=== PATIENT | female | born 1945 | race Caucasian/White ===

== ENCOUNTER 2018-10-20 11:17 | Emergency (ER) | payer MEDICARE, SELFPAY ==
[2018-10-20 11:19] VITALS: BP 181/106; PULSE 90; RESP 16; TEMP 36.1; O2SAT 96; BMI 28.7
--- NOTE | 2018-10-20 12:09 | CT_ITS ---
STUDY: CT BRAIN WITHOUT CONTRAST REASON FOR EXAM: Female, 73 years old. Dizziness following head injury. History of breast cancer. RADIATION DOSAGE (If Supplied By Facility): CTDIvol = ( 44.99 ) mGy, DLP = ( 745.49 ) mGycm TECHNIQUE: Transaxial CT imaging of the brain was performed without administration of intravenous contrast material. Individualized dose optimization techniques were used for this CT. COMPARISON: None. FINDINGS: Normal soft tissue structures. Normal calvarium. There is mild cerebral atrophy with widening of the extra-axial spaces and ventricular dilatation. Focal area of encephalomalacia in the left frontal lobe extending into the left basal ganglion suggestive of a prior infarction. Decreased attenuation in the left frontal lobe as well. Normal basal ganglia and thalami. Normal brainstem. Normal cerebellum. There is no intracranial hemorrhage. There are no findings of an acute ischemic infarction. Normal visualized paranasal sinuses. CT/Brain/Head without Contrast IMPRESSION: Chronic involutional changes of the brain. Focal encephalomalacia in the right frontal lobe with extension to the right basal ganglion. Focal area of decreased attenuation is seen along the medial aspect of the left frontal lobe as well. Electronically Signed: Alexis Lee MD at 12:37 EST , Service support ,
--- NOTE | 2018-10-20 12:14 | ED.DCSUM_ITS ---
- ER Visit Summary Date of Service: 10/20/18 Chief Complaint: Slipped on ice fell and hit head on asphalt. History of Present Illness: The patient is a 73 F treated prior basal cell skin CA and breast cancer. Multiple prior surgeries. On no blood thinners. Vision with with with her walking in a parking lot. She slipped on the ice fell backwards and struck her head. This occurred within the last several hours. No LOC but they said she hit her head hard. She is had a headache since that time. No neck pain. No other injuries. No vomiting. No nausea. Physical Examination: Female no acute distress. Vital signs are stable afebrile. HEENT exam pupils round reactive light. No facial trauma. Normal speech. Posterior right scalp with a small hematoma. No laceration or bleeding. C-spine nontender. Trachea midline. Lungs clear to auscultation bilaterally. Heart regular rhythm no murmur. Chest wall nontender. Abdomen soft nontender. Normal bowel sounds no peritoneal signs. Pelvic girdle intact. Nontender. Normal flexion extension of both hips, knees and ankles. Dorsi plantar flexion intact. Nontender no deformity lower extremities. Upper extremities are nontender with normal range of motion. Normal range of motion to shoulders bilateral elbows, wrists and hands. Normal ground instructor basic strength. Spine is nontender. She has some right trapezius tenderness consistent with a muscle strain. Neurologically she is awake alert with no focal motor deficits. Test Results: CAT scan of the brain without contrast shows no acute abnormality. Chronic changes. Encephalomalacia. No intracranial bleed. Reviewed by myself and read by the radiologist. Emergency Department Course and Treatment: Patient did not want anything for her headache at this time. She took aspirin at home. Exam at 1330 patient is doing well. Comfortable discharged home. I did warn her and her on signs and symptoms of delayed intracranial bleed. Treatment Plan: Injury instructions. Return if severe headache, intractable vomiting or mental status change. Disposition: Discharge Impression: Acute fall on ice Closed head injury /concussion This note was generated with [employer] dictation software. It may contain incorrect words, spelling, and punctuation that were not noted in review of the chart prior to signing ED Disposition - Plan for ED Patient: Chief Complaint: Fall Referrals: Shelbi Contreras PA [Primary Care Provider] -
--- NOTE | 2018-10-20 13:32 | ED.DEP ---
ED Disposition - Plan for ED Patient: Disposition: Home or Assisted Living Chief Complaint: Fall Instructions: ED Head Injury Closed Referrals: Shelbi Contreras PA [Primary Care Provider] - As Needed Additional Instructions: Ice to back of head. Tylenol for pain. Return if severe headache, vomiting or trouble walking or not acting herself.
[2018-10-20 13:40] VITALS: BP 145/115; PULSE 101; RESP 16; O2SAT 96
== END 2018-10-20 13:42 | disposition home or self-care (01) ==
PROVIDERS: Emergency Provider Emergency Medicine; Family Provider Physician Assistant; PCP Physician Assistant
DX: S06.0X0A Concussion without loss of consciousness, initial encounter (principal); V00.211A Fall from ice-skates, initial encounter; Y93.01 Activity, walking, marching and hiking; Y92.481 Parking lot as the place of occurrence of the external cause; Y99.9 Unspecified external cause status; Z85.828 Personal history of other malignant neoplasm of skin; Z85.3 Personal history of malignant neoplasm of breast
CPT/HCPCS: 70450; 99282

== ENCOUNTER 2019-11-27 18:35 | Emergency (ER) | payer MEDICARE, SELFPAY ==
[2019-11-27 18:37] VITALS: BP 150/87; PULSE 114; RESP 16; TEMP 36.7; O2SAT 93; BMI 28.0
--- NOTE | 2019-11-27 19:00 | EKG12_ITS ---
Test Reason : DIZZY Blood Pressure : / mmHG Vent. Rate : 095 BPM Atrial Rate : 095 BPM P-R Int : 158 ms QRS Dur : 076 ms QT Int : 334 ms P-R-T Axes : 035 -11 036 degrees QTc Int : 419 ms Normal sinus rhythm Possible Left atrial enlargement Borderline ECG Confirmed by LILIA DYE, EUGENE ([id number]), brands editor SONIA DAVILA ([id number]) on 11/29/2019 3:16:55 PM Referred By: WILBER Confirmed By:EUGENE RODRIGUES MD
--- NOTE | 2019-11-27 19:09 | ED.DCSUM_ITS ---
History of Present Illness Chief Complaint: Dizziness Informant: Patient, Family Onset: Yesterday Narrative: Increased urine urgency yesterday, today noting subjective fevers, myalgias and chills. 6 weeks postop bladder lift with rectocele removal from her hand hide stretcher in [place]. Had a follow-up on the of last month, had dysuria, called in prescription following day due to positive UTI of Macrobid she finished this 2 days ago. No back pain. Nausea without vomiting or diarrhea. No chest pains or shortness of breath. No cough. She does not get the flu vaccination. Patient only takes occasional reflux medications. States occasional lightheaded symptoms, no syncopal episodes. Prior similar symptoms: No Past Medical History - Allergies and Home Meds Allergies/Adverse Reactions: Allergies No Known Allergies Allergy (Verified 10/20/18 11:19) Primary Care Physician: Shelbi Contreras PA [Primary Care Provider] - Past Medical History: - - GERD, ZAMAN Surgical History: cholecystectomy, - - lumpectemy, breast cancer, port placed and then removed.hysterectemy Smoking Status: Never smoker - Family History Maternal Family History: Reports: - Paternal Family History: Reports: - - father had mi at age 70 Review of Systems All systems negative except as indicated General: Reports: Chills, Fever. Denies: Sweats Eyes: Denies: Visual changes - bilaterally, Diplopia ENT: Denies: Rhinorrhea, Sore throat Cardiovascular: Denies: Chest pain, Palpitations Respiratory: Denies: Dyspnea, Cough, Dyspnea on exertion Gastrointestinal: Reports: Nausea. Denies: Abdominal pain, Vomiting, Diarrhea, Melena, Hematochezia Genitourinary: Reports: Frequency. Denies: Dysuria, Hematuria Musculoskeletal: Denies: Back pain, Extremity Pain Skin: Denies: Rash, Wounds Neurological: Denies: Headache, Weakness, Numbness Physical Exam Vital Signs/Narrative: Vital Signs Temp Pulse Resp BP Pulse Ox 11/27/19 18:37 98.1 F 114 H 16 150/87 H 93 Inital Vital Signs reviewed: Yes General: Well nourished, Well developed, No Acute Distress Head: Normocephalic, Atraumatic Eyes: Perrl, EOMI ENT: Moist mucous membranes, No rhinorrhea Neck: Supple, Nontender Cardiovascular: Regular rate, Regular rhythm, No murmurs, Tachycardia Respiratory: No distress, CTA bilaterally, Chest nontender Abdomen: Soft, Nontender, Nondistended, Normal bowel sounds Back: Nontender, Normal Inspection Extremities: Nontender, No edema Skin: Normal color, No rash Neurological: Alert, Oriented x3, Cranial nerves II-XII grossly intact, Normal Strength, Normal Sensation Psychological: Normal affect, Normal Mood Diagnostic/Tx/Re-eval - EKG Initial EKG Interpretation: Sinus Rhythm - Sinus rate of 95, no ST or T wave changes. QTc 419. - Medical Decision Making Abnormal Lab Results 11/27/19 11/27/19 11/27/19 18:51 19:25 19:25 WBC 5.7 RBC 4.35 Hgb 13.3 Hct 41.0 MCV 94.3 MCH 30.6 MCHC 32.4 RDW Std Deviation 44.9 H RDW Coeff of Jeffrey 13.1 Plt Count 181 MPV 9.9 Immature Gran % (Auto) 0.200 Neut % (Auto) 80.5 H Lymph % (Auto) 10.1 L [place] % (Auto) 7.2 Eos % (Auto) 1.8 Baso % (Auto) 0.2 Absolute Neuts (auto) 4.6 Absolute Lymphs (auto) 0.57 L Nucleated RBC % 0 Differential Comment SCANNED Sodium 135 L Potassium 3.6 Chloride 102 Carbon Dioxide 29.0 Anion Gap 4 L BUN 11 Creatinine 0.88 Estim Creat Clear Calc 44.36 Est GFR (MDRD) Af Amer 81 Est GFR (MDRD) Non-Af 67 BUN/Creatinine Ratio 12.5 Glucose 89 Calcium 8.6 Total Bilirubin 0.40 Direct Bilirubin 0.13 AST 39 H ALT 49 Alkaline Phosphatase 128 H Total Protein 7.1 Albumin 3.8 Globulin 3.3 Lipase 119 Urine Color Straw Urine Clarity Sl. Cloudy Urine pH 8.0 Ur Specific [place] 1.020 Urine Protein Negative Urine Glucose (UA) Normal Urine Ketones Negative Urine Occult Blood Negative Urine Nitrite Negative Urine Bilirubin Negative Urine Urobilinogen Normal Ur Leukocyte Esterase 500 H Urine RBC 0-5 SEEN Urine WBC 0-5 SEEN Ur Squamous Epith Cells 0-5 SEEN Urine Bacteria RARE Urine Mucus 0 SEEN Patient nontoxic no focal neurologic deficits. EKG was normal. Given fluids and Zofran, laboratory studies stable, noted slight elevation AST and ALP. She has a cholecystectomy history. 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 Lipase was normal. Nausea is improving on reevaluation. Patient started on Keflex for UTI concerns urine culture sent. Prescriptions written for nausea along with antibiotics. Signs and symptom discussed return otherwise follow-up with her PCP. All questions were answered. ED Disposition - Plan for ED Patient: Disposition: Home or Assisted Living Diagnosis: UTI (urinary tract infection) Instructions: Understanding Urinary Tract Infections (UTIs) Prescriptions: Cephalexin [Keflex] 500 mg PO BID #13 cap [id number] Ondansetron [Zofran Odt] 8 mg PO Q8H PRN PRN #10 tab PRN Reason: Nausea Transmission Status[facility] Referrals: Shelbi Contreras PA [Primary Care Provider] - 5-7 Days
[2019-11-27] MEDS: Ondansetron 4 MG/2 ML Vial IV (19:24)
[2019-11-27 19:34] VITALS: BP 158/101; PULSE 95; RESP 15; TEMP 38; O2SAT 93
[2019-11-27 19:50] LABS: Absolute Lymphocyte Count 0.57 X10^3/uL (0.83-4.51); Absolute Neutrophil Count 4.6 X10^3/uL (2.0-7.7); Basophil# 0.01 X10^3/uL; Basophil% 0.2 % (0-1); Eosinophils% 1.8 % (0-5); Hemoglobin 13.3 g/dL (12.0-15.0); Lymphocyte # 0.57 X10^3/ul (4.0); Lymphocyte % 10.1 % (19-41); Mean Corp Hgb Conc 32.4 g/dL (32-36); Mean Corpuscular Hgb 30.6 pg (27.0-32.0); Mean Corpuscular Volume 94.3 fL (81-99); Mean Platelet Vol. 9.9 fl (6.2-12.0); Monocyte# 0.41 X10^3/uL; Monocyte% 7.2 % (0-10); NRBC Flagged by Analyzer 0 % (0-5); Neutrophil # 4.57 X10^3/uL (2.7-7.7); Neutrophil % 80.5 % (47-70); POSITIVE DIFFERENTIAL YES; Platelet Count 181 K/mm3 (150-450); RBC Distribution Width CV 13.1 % (11.6-14.6); RBC Distribution Width SD 44.9 fl (35.1-43.9); Red Blood Count 4.35 M/mm3 (4.2-5.4); White Blood Count 5.7 K/mm3 (4.4-11.0)
[2019-11-27 19:52] LABS: Mucous, Urine 0 SEEN /hpf (<or=2+)
[2019-11-27 20:08] LABS: Color, Urine Straw (Yellow); Glucose, Dipstick Normal (Normal); Ketone-Dipstick Negative (Negative); Leukocyte Esterase-Dipstick 500 /ul (Negative); Nitrite-Dipstick Negative (Negative); Occult Blood-Urine Negative /ul (Negative); Protein-Dipstick Negative (Negative); Urine Bilirubin Dipstick Negative (Negative); Urine Clarity Sl. Cloudy (Clear); Urine Urobilinogen Normal (Normal)
[2019-11-27 20:20] LABS: Differential Indicated SCAN CRITERIA MET
[2019-11-27 20:26] LABS: Bacteria RARE /hpf (None Seen); Red Blood Cells-Urine 0-5 SEEN /hpf (0-5); Squamous Epithelial Cells - UA 0-5 SEEN /hpf (5-10); White Blood Cells 0-5 SEEN /hpf (0-5)
[2019-11-27 20:34] LABS: Differential Comment SCANNED
[2019-11-27 20:37] LABS: AST(SGOT) 39 U/L (15-37); Alanine Aminotransfer ALT/SGPT 49 U/L (13-56); Albumin, Serum 3.8 g/dL (3.2-5.0); Alkaline Phosphatase 128 U/L (45-117); Anion Gap 4 (5-15); BUN 11 mg/dL (7-18); BUN/Creat Ratio 12.5 RATIO (10-20); Bilirubin, Direct 0.13 mg/dL (0.00-0.30); Calcium,Total 8.6 mg/dL (8.5-10.1); Chloride 102 mmol/L (98-107); Creatinine, Serum 0.88 mg/dL (0.55-1.02); EST Glomerular Filtration Rate 67 mL/min (>60); Est Glom Filt Rate - Afr Amer 81 mL/min (>60); Estimated Creatinine Clearance 44.36 ml/min; Globulin 3.3 g/dL (2.2-4.2); Glucose 89 mg/dL (74-106); Lipase 119 U/L (73-393); Potassium 3.6 mmol/L (3.5-5.1); Protein, Total 7.1 g/dL (6.4-8.2); Sodium Level 135 mmol/L (136-145)
[2019-11-27 20:48] VITALS: BP 152/99; PULSE 98; RESP 17; TEMP 38.1; O2SAT 93
[2019-11-27] MEDS: Cephalexin 250 MG Capsule 500 MG PO (21:13)
== END 2019-11-27 21:21 | disposition home or self-care (01) ==
PROVIDERS: Emergency Provider Emergency Medicine; PCP Physician Assistant
DX: N39.0 Urinary tract infection, site not specified (principal); R39.15 Urgency of urination; R42 Dizziness and giddiness; M79.10 Myalgia, unspecified site; K21.9 Gastro-esophageal reflux disease without esophagitis; Z85.3 Personal history of malignant neoplasm of breast; Z90.49 Acquired absence of other specified parts of digestive tract
CPT/HCPCS: 80048; 80076; 81001; 83690; 85025; 87086; 87088; 87804; 93005; 96361; 96374; 99285; J7040; A4216; J2405

== ENCOUNTER → 2020-10-03 13:19 | Outpatient (CLI) | payer MEDICARE, SELFPAY ==
[2020-10-03 14:37] LABS: Absolute Neutrophil Count 3.8 X10^3/uL (2.0-7.7); Basophil# 0.05 X10^3/uL; Basophil% 0.7 % (0-1); Eosinophils% 1.5 % (0-5); Hematocrit 41.9 % (37-47); Hemoglobin 13.6 g/dL (12.0-15.0); Lymphocyte % 34.1 % (19-41); Mean Corp Hgb Conc 32.5 g/dL (32-36); Mean Corpuscular Hgb 30.9 pg (27.0-32.0); Mean Corpuscular Volume 95.2 fL (81-99); Mean Platelet Vol. 10.6 fl (6.2-12.0); Monocyte# 0.49 X10^3/uL; Monocyte% 7.3 % (0-10); NRBC Flagged by Analyzer 0 % (0-5); Neutrophil # 3.78 X10^3/uL (2.7-7.7); Platelet Count 216 K/mm3 (150-450); RBC Distribution Width CV 12.8 % (11.6-14.6); RBC Distribution Width SD 44.8 fl (35.1-43.9); White Blood Count 6.8 K/mm3 (4.4-11.0)
[2020-10-03 15:30] LABS: ALB/GLOB Ratio 1.1 RATIO (0.9-2.4); AST(SGOT) 30 U/L (15-37); Alanine Aminotransfer ALT/SGPT 43 U/L (13-56); Alkaline Phosphatase 123 U/L (45-117); Anion Gap 6 (5-15); BUN 17 mg/dL (7-18); BUN/Creat Ratio 21.1 RATIO (10-20); Calcium,Total 9.1 mg/dL (8.5-10.1); Chloride 103 mmol/L (98-107); EST Glomerular Filtration Rate 74 mL/min (>60); Est Glom Filt Rate - Afr Amer 89 mL/min (>60); Globulin 3.5 g/dL (2.2-4.2); Glucose 67 mg/dL (74-106); Magnesium 2.4 mg/dL (1.6-2.6); Potassium 3.9 mmol/L (3.5-5.1); Protein, Total 7.5 g/dL (6.4-8.2); Sodium Level 139 mmol/L (136-145); Thyroid Stim Hormone (TSH) 0.97 uIU/mL (0.358-3.74)
[2020-10-03 16:06] LABS: Hepatitis C Antibody Non-Reactive (Nonreactive); Vitamin B12 1991 pg/mL (211-911)
== END ==
PROVIDERS: PCP Family Medicine Geriatric Medicine; Visit Provider Family Medicine Geriatric Medicine
DX: E55.9 Vitamin D deficiency, unspecified (principal); R53.83 Other fatigue; Z13.89 Encounter for screening for other disorder
CPT/HCPCS: 36415; 80053; 82607; 82746; 83735; 84443; 85025; 86803

== ENCOUNTER → 2020-10-05 14:13 | Outpatient (CLI) | payer MEDICARE, SELFPAY ==
--- NOTE | 2020-10-05 14:16 | CT_ITS ---
STUDY: CT ABDOMEN WITH CONTRAST REASON FOR EXAM: Female, 75 years old. VENTRAL HERNIA W/O OBSTRUCTION. RADIATION DOSAGE (If Supplied By Facility): CTDIvol = ( 15.25 ) mGy, DLP = ( 582.61 ) mGycm TECHNIQUE: Transaxial images were obtained post I.V. administration of 100cc ISOVUE 370, and oral contrast. Sagittal and coronal images were reconstructed. Individualized dose optimization techniques were used for this CT. COMPARISON: None. FINDINGS: Increased markings at the lung bases suggestive of scarring. Coronary artery calcification. There is decreased attenuation of the liver consistent with steatosis. The gallbladder is contracted. Normal spleen. Normal pancreas. Normal bilateral adrenal glands. Normal right kidney. Normal left kidney. There is a small hiatal hernia. Normal small intestine. Normal colon. The appendix is visualized and appears normal. There is diffuse atherosclerotic calcification of the abdominal aorta, without a demonstrated aneurysm. Normal inferior vena cava. Normal retroperitoneum. Normal abdominal wall. There are diffuse degenerative changes of the visualized lumbar spine. Mild levoscoliosis. Grade 1 anterior listhesis of L4 on L5 most likely secondary to facet joint osteoarthritis. CT/Abdomen WITH IV Contrast IMPRESSION: Fatty infiltration of the liver. Mild degree of increased markings at the lung bases suggestive of scarring. There is no evidence of a ventral hernia. Electronically Signed: Alexis Lee, at 15:14 EST , Service support ,
== END ==
PROVIDERS: PCP Family Medicine Geriatric Medicine; Visit Provider Family Medicine Geriatric Medicine
DX: K43.9 Ventral hernia without obstruction or gangrene (principal)
CPT/HCPCS: 74160; Q9967

== ENCOUNTER → 2020-10-17 07:28 | Outpatient (CLI) | payer MEDICARE, SELFPAY ==
--- NOTE | 2020-10-17 07:30 | US_ITS ---
STUDY: ABDOMINAL ULTRASOUND - RIGHT UPPER QUADRANT REASON FOR VISIT: Female, 75 years old FATTY LIVER TECHNIQUE: Ultrasound evaluation of the right upper quadrant was performed with real-time and static best-scale imaging. TECHNICAL QUALITY: Adequate. COMPARISON: None. FINDINGS: Liver: The liver measures 15.5 cm. There is increased echogenicity consistent with fatty infiltration. Focal fatty sparing is seen in the region of the eugene hepatis. The bile ducts are within normal limits. There is hepatic color flow. The direction of portal flow is hepatopetal. There is no demonstrated mass lesion. Gallbladder: The patient is status post cholecystectomy. The gallbladder wall measures mm. There is a negative sonographic Owen''s sign. There is no pericholecystic fluid. There are no gallstones. Common Bile Duct (C.B.D.): The common bile duct measures 3 mm. Pancreas: Normal size of the head, body the pancreas. The tail portion is obscured due to overlying bowel gas. There is normal echogenicity of the pancreas. There is no demonstrated pancreatic mass or cyst. Right Kidney: Normal size of the right kidney. The right kidney measures 10 cm x 4.6 cm x 4.3 cm. Normal renal cortex. The right cortex measures 1.0 cm. There is no demonstrated renal mass or cyst. There is no right hydronephrosis. IMPRESSION: Fatty infiltration of the liver. Status post cholecystectomy. Electronically Signed: Alexis Lee MD at 9:08 EST , Service support , STUDY: ABDOMINAL ULTRASOUND - ELASTOGRAPHY REASON FOR VISIT: Female, 75 years old. Fatty infiltration of the liver. Prior cholecystectomy. TECHNIQUE: Liver stiffness measurements were obtained on a [employer] 85 ultrasound machine using a CA 1-7 probe following the SRU guidelines. 3 measurements were obtained using a 2-D-SWE method. The IQR/M was 14% suggesting a quality data set. TECHNICAL QUALITY: Adequate. COMPARISON: None. FINDINGS: Liver: Fatty infiltration of the liver. Status post cholecystectomy. Median liver stiffness measured 6 kPa. US/Abdomen Limited IMPRESSION: Liver stiffness measures 6 kPa compatible with F2 -- F3 Metavir score. Electronically Signed: Alexis Lee MD at 9:12 EST , Service support ,
--- NOTE | 2020-10-17 07:31 | US_ITS ---
STUDY: ABDOMINAL ULTRASOUND - RIGHT UPPER QUADRANT REASON FOR VISIT: Female, 75 years old FATTY LIVER TECHNIQUE: Ultrasound evaluation of the right upper quadrant was performed with real-time and static best-scale imaging. TECHNICAL QUALITY: Adequate. COMPARISON: None. FINDINGS: Liver: The liver measures 15.5 cm. There is increased echogenicity consistent with fatty infiltration. Focal fatty sparing is seen in the region of the eugene hepatis. The bile ducts are within normal limits. There is hepatic color flow. The direction of portal flow is hepatopetal. There is no demonstrated mass lesion. Gallbladder: The patient is status post cholecystectomy. The gallbladder wall measures mm. There is a negative sonographic Owen''s sign. There is no pericholecystic fluid. There are no gallstones. Common Bile Duct (C.B.D.): The common bile duct measures 3 mm. Pancreas: Normal size of the head, body the pancreas. The tail portion is obscured due to overlying bowel gas. There is normal echogenicity of the pancreas. There is no demonstrated pancreatic mass or cyst. Right Kidney: Normal size of the right kidney. The right kidney measures 10 cm x 4.6 cm x 4.3 cm. Normal renal cortex. The right cortex measures 1.0 cm. There is no demonstrated renal mass or cyst. There is no right hydronephrosis. IMPRESSION: Fatty infiltration of the liver. Status post cholecystectomy. Electronically Signed: Alexis Lee MD at 9:08 EST , Service support , STUDY: ABDOMINAL ULTRASOUND - ELASTOGRAPHY REASON FOR VISIT: Female, 75 years old. Fatty infiltration of the liver. Prior cholecystectomy. TECHNIQUE: Liver stiffness measurements were obtained on a [employer] 85 ultrasound machine using a CA 1-7 probe following the SRU guidelines. 3 measurements were obtained using a 2-D-SWE method. The IQR/M was 14% suggesting a quality data set. TECHNICAL QUALITY: Adequate. COMPARISON: None. FINDINGS: Liver: Fatty infiltration of the liver. Status post cholecystectomy. Median liver stiffness measured 6 kPa. US/Elastography Parenchyma/Organ IMPRESSION: Liver stiffness measures 6 kPa compatible with F2 -- F3 Metavir score. Electronically Signed: Alexis Lee MD at 9:12 EST , Service support ,
== END ==
PROVIDERS: PCP Family Medicine Geriatric Medicine; Visit Provider Family Medicine Geriatric Medicine
DX: K76.0 Fatty (change of) liver, not elsewhere classified (principal)
CPT/HCPCS: 76705; 76981

== ENCOUNTER 2020-11-30 12:57 | Outpatient (RCR) | payer MEDICARE, SELFPAY ==
[2020-11-30] MEDS: COVID-19 VACC, MRNA(PFIZER)/PF 30 MCG/0.3 ML SYRINGE IM (14:12)
[2020-12-21] MEDS: COVID-19 VACC, MRNA(PFIZER)/PF 30 MCG/0.3 ML SYRINGE IM (14:12)
== END 2021-02-27 23:59 ==
LOC: IMMUN 12:57
PROVIDERS: PCP Family Medicine Geriatric Medicine; Visit Provider Family Medicine
DX: Z23 Encounter for immunization (principal)
CPT/HCPCS: 0001A; 0002A; 91300

== ENCOUNTER → 2021-02-07 14:03 | Outpatient (CLI) | payer MEDICARE, SELFPAY ==
--- NOTE | 2021-02-07 14:07 | RAD_ITS ---
STUDY: X-RAY - RIGHT HAND REASON FOR EXAM: Female, 75 years old. PAIN IN R FINGERS TECHNIQUE: 3 view(s) of the hand. COMPARISON: None. FINDINGS: The bones are diffusely demineralized. There is joint space narrowing of the radiocarpal articulation consistent with degenerative arthrosis. Normal distal radioulnar joint. Normal visualized carpal bones. Normal carpal articulations There is degenerative arthrosis of the carpometacarpal (CMC) articulation of the thumb. Normal second through fifth carpometacarpal joints. Normal metacarpi. There is degenerative arthrosis of the metacarpophalangeal (MCP) joints. There is degenerative arthrosis of the interphalangeal joint of the thumb with articular joint space narrowing. Normal proximal and distal phalanges of the thumb. Normal metacarpophalangeal joints of the second through fifth fingers. There is diffuse articular joint space narrowing of the proximal and distal interphalangeal joints of the second through fifth fingers, but without erosive changes or periarticular soft tissue swelling. Gullwing deformities noted. Normal phalanges of the second through fifth fingers. The soft tissue structures are unremarkable. 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 No demonstrated fracture or subchondral erosions. Gullwing deformities noted. Diffuse osteopenia Electronically Signed: J Carlos Posadas MD at 14:43 EDT , Service support ,
== END ==
PROVIDERS: PCP Family Medicine Geriatric Medicine; Referring Provider Family Medicine Geriatric Medicine; Visit Provider Family Medicine Geriatric Medicine
DX: M79.644 Pain in right finger(s) (principal)
CPT/HCPCS: 73130

== ENCOUNTER → 2021-04-30 14:28 | Outpatient (CLI) | payer MEDICARE, SELFPAY ==
[2021-04-30 15:43] LABS: Absolute Lymphocyte Count 1.77 X10^3/uL (0.83-4.51); Absolute Neutrophil Count 3.7 X10^3/uL (2.0-7.7); Basophil# 0.04 X10^3/uL; Basophil% 0.6 % (0-1); Eosinophil# 0.07 X10^3/uL; Eosinophils% 1.1 % (0-5); Hematocrit 41.1 % (37-47); Hemoglobin 13.4 g/dL (12.0-15.0); Lymphocyte # 1.77 X10^3/ul (0.83-4.51); Lymphocyte % 28.7 % (19-41); Mean Corp Hgb Conc 32.6 g/dL (32-36); Mean Corpuscular Hgb 31.3 pg (27.0-32.0); Mean Platelet Vol. 10.5 fl (6.2-12.0); Monocyte# 0.53 X10^3/uL; Monocyte% 8.6 % (0-10); NRBC Flagged by Analyzer 0 % (0-5); Neutrophil # 3.72 X10^3/uL (2.7-7.7); Neutrophil % 60.5 % (47-70); Platelet Count 222 K/mm3 (150-450); RBC Distribution Width SD 46.5 fl (35.1-43.9); Red Blood Count 4.28 M/mm3 (4.2-5.4); White Blood Count 6.2 K/mm3 (4.4-11.0)
[2021-04-30 16:13] LABS: ALB/GLOB Ratio 1.3 RATIO (0.9-2.4); AST(SGOT) 31 U/L (15-37); Alanine Aminotransfer ALT/SGPT 47 U/L (13-56); Albumin, Serum 4.2 g/dL (3.2-5.0); Alkaline Phosphatase 137 U/L (45-117); Anion Gap 8 (5-15); BUN 13 mg/dL (7-18); BUN/Creat Ratio 15.9 RATIO (10-20); Calcium,Total 9.3 mg/dL (8.5-10.1); Chloride 101 mmol/L (98-107); Creatinine, Serum 0.82 mg/dL (0.55-1.02); EST Glomerular Filtration Rate 72 mL/min (>60); Est Glom Filt Rate - Afr Amer 87 mL/min (>60); Globulin 3.3 g/dL (2.2-4.2); Glucose 87 mg/dL (74-106); Potassium 4.2 mmol/L (3.5-5.1); Protein, Total 7.5 g/dL (6.4-8.2); Sodium Level 138 mmol/L (136-145); Thyroid Stim Hormone (TSH) 1.57 uIU/mL (0.358-3.74)
== END ==
PROVIDERS: PCP Family Medicine Geriatric Medicine; Visit Provider Family Medicine Geriatric Medicine
DX: E55.9 Vitamin D deficiency, unspecified (principal); R53.83 Other fatigue
CPT/HCPCS: 36415; 80053; 82306; 84443; 85025

== ENCOUNTER → 2021-06-01 12:52 | Outpatient (CLI) | payer MEDICARE, SELFPAY ==
--- NOTE | 2021-06-01 13:30 | RAD_ITS ---
STUDY: X-RAY - ABDOMEN/PELVIS REASON FOR EXAM: Female, 76 years old. ABD PAIN TECHNIQUE: AP supine and upright views of the abdomen and pelvis. COMPARISON: None. FINDINGS: There is elevation of the right hemidiaphragm. There is a moderate amount of colonic fecal material. There is no demonstrated free abdominal air. The patient is status post cholecystectomy. Atherosclerotic calcification of the abdominal aorta and proximal left renal artery.. There are calcified phleboliths in the pelvis. There are degenerative changes of the visualized lumbar spine. Levoscoliosis. RAD/Abd Inc Decub and/or Erect IMPRESSION: No acute abnormality is seen. Electronically Signed: Alexis Lee MD at 14:30 EDT , Service support ,
[2021-06-01 13:34] LABS: Absolute Lymphocyte Count 1.34 X10^3/uL (0.83-4.51); Absolute Neutrophil Count 3.4 X10^3/uL (2.0-7.7); Basophil# 0.02 X10^3/uL; Basophil% 0.4 % (0-1); Eosinophil# 0.05 X10^3/uL; Eosinophils% 0.9 % (0-5); Hematocrit 41.7 % (37-47); Hemoglobin 13.6 g/dL (12.0-15.0); Lymphocyte # 1.34 X10^3/ul (0.83-4.51); Lymphocyte % 24.7 % (19-41); Mean Corp Hgb Conc 32.6 g/dL (32-36); Mean Corpuscular Hgb 31.3 pg (27.0-32.0); Mean Corpuscular Volume 96.1 fL (81-99); Mean Platelet Vol. 10.1 fl (6.2-12.0); Monocyte# 0.64 X10^3/uL; Monocyte% 11.8 % (0-10); NRBC Flagged by Analyzer 0 % (0-5); Neutrophil # 3.35 X10^3/uL (2.7-7.7); Neutrophil % 61.8 % (47-70); Platelet Count 181 K/mm3 (150-450); RBC Distribution Width CV 13.2 % (11.6-14.6); RBC Distribution Width SD 47.8 fl (35.1-43.9); Red Blood Count 4.34 M/mm3 (4.2-5.4); White Blood Count 5.4 K/mm3 (4.4-11.0)
[2021-06-01 14:15] LABS: AST(SGOT) 38 U/L (15-37); Alanine Aminotransfer ALT/SGPT 41 U/L (13-56); Albumin, Serum 3.6 g/dL (3.2-5.0); Alkaline Phosphatase 111 U/L (45-117); Anion Gap 7 (5-15); BUN 13 mg/dL (7-18); BUN/Creat Ratio 17.7 RATIO (10-20); Calcium,Total 8.9 mg/dL (8.5-10.1); Chloride 102 mmol/L (98-107); Creatinine, Serum 0.74 mg/dL (0.55-1.02); EST Glomerular Filtration Rate 82 mL/min (>60); Est Glom Filt Rate - Afr Amer 99 mL/min (>60); Globulin 3.7 g/dL (2.2-4.2); Glucose 106 mg/dL (74-106); Potassium 3.7 mmol/L (3.5-5.1); Protein, Total 7.3 g/dL (6.4-8.2); Sodium Level 138 mmol/L (136-145)
[2021-06-01 14:18] LABS: Hepatitis B Surface Antibody Non-Reactive
[2021-06-02 05:07] LABS: HEPATITIS B SURFACE AG Negative (Negative); Hepatitis A IgM Antibody Negative (Negative); Hepatitis B Core AB IgM Negative (Negative)
[2021-06-02 13:59] LABS: Hep C Antibodies <0.1 s/co ratio (0.0-0.9); Hepatitis A AB, Total Negative (Negative)
== END ==
PROVIDERS: PCP Family Medicine Geriatric Medicine; Referring Provider Family Medicine Geriatric Medicine; Visit Provider Family Medicine Geriatric Medicine
DX: R10.9 Unspecified abdominal pain (principal); R19.7 Diarrhea, unspecified; R74.8 Abnormal levels of other serum enzymes; R68.83 Chills (without fever)
CPT/HCPCS: 36415; 74019; 80053; 80074; 85025; 86706; 86708; 87635; 87804; 87807; C9803; U0005; U0003

== ENCOUNTER → 2021-06-02 | Outpatient (CLI) | payer MEDICARE, SELFPAY | END | disposition home or self-care (01) | LOC: LABSPEC 11:34 | PROVIDERS: PCP Family Medicine Geriatric Medicine; Referring Provider Family Medicine Geriatric Medicine; Visit Provider Family Medicine Geriatric Medicine | DX: R19.7 Diarrhea, unspecified (principal); R10.9 Unspecified abdominal pain; R74.8 Abnormal levels of other serum enzymes | CPT/HCPCS: 82274; 83630; 87177; 87209; 87506 ==

== ENCOUNTER → 2021-06-07 11:24 | Outpatient (CLI) | payer MEDICARE, SELFPAY ==
--- NOTE | 2021-06-07 11:30 | RAD_ITS ---
STUDY: X-RAY - ABDOMEN/PELVIS REASON FOR EXAM: Female, 76 years old. ABD PAIN TECHNIQUE: AP supine and upright views of the abdomen and pelvis. COMPARISON: Comparison is made with prior study dated 06/01/2021. FINDINGS: Stable elevation of the right hemidiaphragm. There is an abundance of fecal material throughout the colon. There is no demonstrated free abdominal air. The patient is status post cholecystectomy. Normal soft tissue structures. Levoscoliosis. RAD/Abd Inc Decub and/or Erect IMPRESSION: Large amount of fecal material is seen in the colon. Electronically Signed: Alexis Lee MD at 13:22 EDT , Service support ,
== END ==
PROVIDERS: PCP Family Medicine Geriatric Medicine; Referring Provider Family Medicine Geriatric Medicine; Visit Provider Family Medicine Geriatric Medicine
DX: R10.9 Unspecified abdominal pain (principal)
CPT/HCPCS: 74019

== ENCOUNTER 2021-10-18 15:59 | Outpatient (CLI) | payer MEDICARE, SELFPAY ==
[2021-10-18 17:29] LABS: Absolute Lymphocyte Count 1.79 X10^3/uL (0.83-4.51); Absolute Neutrophil Count 3.9 X10^3/uL (2.0-7.7); Basophil# 0.04 X10^3/uL; Basophil% 0.6 % (0-1); Eosinophil# 0.05 X10^3/uL; Eosinophils% 0.8 % (0-5); Hematocrit 41.6 % (37-47); Hemoglobin 13.7 g/dL (12.0-15.0); Lymphocyte # 1.79 X10^3/ul (0.83-4.51); Lymphocyte % 28.5 % (19-41); Mean Corp Hgb Conc 32.9 g/dL (32-36); Mean Corpuscular Volume 94.1 fL (81-99); Mean Platelet Vol. 10.8 fl (6.2-12.0); NRBC Flagged by Analyzer 0 % (0-5); Neutrophil # 3.88 X10^3/uL (2.7-7.7); Neutrophil % 61.9 % (47-70); Platelet Count 215 K/mm3 (150-450); RBC Distribution Width SD 45.2 fl (35.1-43.9); Red Blood Count 4.42 M/mm3 (4.2-5.4); White Blood Count 6.3 K/mm3 (4.4-11.0)
[2021-10-18 18:05] LABS: Vitamin D,25 Hydroxy 30.8 ng/mL
[2021-10-18 18:12] LABS: ALB/GLOB Ratio 1.1 RATIO (0.9-2.4); AST(SGOT) 28 U/L (15-37); Alanine Aminotransfer ALT/SGPT 43 U/L (13-56); Albumin, Serum 3.9 g/dL (3.2-5.0); Alkaline Phosphatase 133 U/L (45-117); Anion Gap 5 (5-15); BUN 14 mg/dL (7-18); BUN/Creat Ratio 17.7 RATIO (10-20); Calcium,Total 8.7 mg/dL (8.5-10.1); Chloride 101 mmol/L (98-107); Creatinine, Serum 0.79 mg/dL (0.55-1.02); EST Glomerular Filtration Rate 75 mL/min (>60); Est Glom Filt Rate - Afr Amer 91 mL/min (>60); Globulin 3.5 g/dL (2.2-4.2); Glucose 115 mg/dL (74-106); Potassium 3.7 mmol/L (3.5-5.1); Protein, Total 7.4 g/dL (6.4-8.2); Sodium Level 137 mmol/L (136-145); Thyroid Stim Hormone (TSH) 0.78 uIU/mL (0.358-3.74)
== END 2021-10-18 23:59 | disposition short-term general hospital (02) ==
LOC: POLAB3 16:00
PROVIDERS: PCP Family Medicine Geriatric Medicine; Visit Provider Family Medicine Geriatric Medicine
DX: E55.9 Vitamin D deficiency, unspecified (principal); R53.83 Other fatigue
CPT/HCPCS: 36415; 80053; 82306; 84443; 85025

== ENCOUNTER 2021-10-30 11:32 | Outpatient (CLI) | payer MEDICARE, SELFPAY ==
--- NOTE | 2021-10-30 12:00 | RAD_ITS ---
STUDY: X-RAY CHEST REASON FOR EXAM: Female, 76 years old. Cough, pt. states she has bronchitis but is being tested for Covid today as well PNEUMONIA SOB TECHNIQUE: XR Chest 2 Views COMPARISON: Prior comparison studies are not available for review at this time. FINDINGS: There is no demonstrated pleural abnormality. There are multiple metallic clips in the right axilla. This is consistent for a prior axillary dissection. There are mastectomy changes noted. There is an elevated right hemidiaphragm. Normal size heart. Normal mediastinum and renee. Normal visualized pulmonary arteries. There is atherosclerotic calcification of the aortic arch with tortuosity. There are diffuse degenerative changes of the visualized thoracic spine. There is degenerative osteoarthritis of the bilateral shoulders. There is no demonstrated abnormality of the visualized soft tissue structures of the upper abdomen. RAD/Chest PA and Lateral IMPRESSION: There has been no change in the appearance of the chest since the prior study. Electronically Signed: Jessee Mcgowan MD at 18:00 EST ,
== END 2021-10-30 23:59 | disposition home or self-care (01) ==
PROVIDERS: PCP Family Medicine Geriatric Medicine; Referring Provider Family Medicine Geriatric Medicine; Visit Provider Family Medicine Geriatric Medicine
DX: R68.83 Chills (without fever) (principal); R06.02 Shortness of breath; Z20.822 Contact with and (suspected) exposure to COVID-19
CPT/HCPCS: 71046; 87635; 87804; 87807; C9803; U0003; U0005

== ENCOUNTER 2021-11-06 16:15 | Outpatient (CLI) | payer MEDICARE, SELFPAY ==
[2021-11-06 17:26] LABS: Absolute Lymphocyte Count 2.34 X10^3/uL (0.83-4.51); Absolute Neutrophil Count 6.7 X10^3/uL (2.0-7.7); Basophil# 0.05 X10^3/uL; Basophil% 0.5 % (0-1); Eosinophil# 0.09 X10^3/uL; Eosinophils% 0.9 % (0-5); Hematocrit 43.7 % (37-47); Hemoglobin 14.3 g/dL (12.0-15.0); Lymphocyte # 2.34 X10^3/ul (0.83-4.51); Lymphocyte % 23.4 % (19-41); Mean Corp Hgb Conc 32.7 g/dL (32-36); Mean Corpuscular Hgb 31.6 pg (27.0-32.0); Mean Corpuscular Volume 96.7 fL (81-99); Mean Platelet Vol. 10.7 fl (6.2-12.0); Monocyte# 0.77 X10^3/uL; Monocyte% 7.7 % (0-10); NRBC Flagged by Analyzer 0 % (0-5); Neutrophil # 6.68 X10^3/uL (2.7-7.7); Neutrophil % 66.8 % (47-70); Platelet Count 244 K/mm3 (150-450); RBC Distribution Width CV 13.2 % (11.6-14.6); RBC Distribution Width SD 47.3 fl (35.1-43.9); Red Blood Count 4.52 M/mm3 (4.2-5.4)
[2021-11-06 17:44] LABS: Anion Gap 3 (5-15); BUN 22 mg/dL (7-18); BUN/Creat Ratio 22.3 RATIO (10-20); Calcium,Total 9.1 mg/dL (8.5-10.1); Chloride 100 mmol/L (98-107); Creatinine, Serum 0.99 mg/dL (0.55-1.02); EST Glomerular Filtration Rate 58 mL/min (>60); Est Glom Filt Rate - Afr Amer 70 mL/min (>60); Glucose 199 mg/dL (74-106); Potassium 4.6 mmol/L (3.5-5.1); Sodium Level 137 mmol/L (136-145)
== END 2021-11-06 23:59 | disposition home or self-care (01) ==
LOC: POLAB3 16:16
PROVIDERS: PCP Family Medicine Geriatric Medicine; Visit Provider Family Medicine Geriatric Medicine
DX: R42 Dizziness and giddiness (principal)
CPT/HCPCS: 36415; 80048; 85025

== ENCOUNTER 2022-01-09 14:30 | Outpatient (CLI) | payer MEDICARE, SELFPAY ==
--- NOTE | 2022-01-09 14:33 | CT_ITS ---
INDICATION: HEADACHE -- XRAYS AFTER CT EXAMINATION: CT BRAIN - CT Head or Brain W/O Contrast Injection TECHNIQUE: Multiple axial images were obtained of the head without intravenous contrast. A radiation dose optimization technique was used for this scan. IV Contrast dosage and agent: None. COMPARISON: 10/20/2018. FINDINGS: BRAIN PARENCHYMA: Areas of low attenuation visualized in the periventricular and subcortical white matter consistent with chronic microvascular disease. Areas of low attenuation visualized along the lateral aspect of bilateral caudate heads more prominent on the right consistent with progression of the focal encephalomalacia, scattered lacunar infarcts visualized demonstrating prominence in comparison to the prior study cannot rule out acute on chronic pathology. No evidence of acute territorial infarct is seen. No intra- or extra-axial hemorrhage. . No intracranial mass or mass effect. There is preservation of the best/white matter interface. Posterior fossa structures are unremarkable. CSF SPACES: Appropriate for age. No hydrocephalus. Basal cisterns are patent. CALVARIUM, SKULL BASE, PARANASAL SINUSES AND MASTOID AIR CELLS: Clear. No discrete lytic or blastic abnormalities. ORBITS: Both globes, extraocular muscles, optic nerves and retrobulbar fat appear unremarkable. CT/Brain/Head without Contrast IMPRESSION: Scattered areas of low attenuation suggestive of microvascular disease demonstrating prominence in comparison to the prior study cannot rule out acute on chronic pathology would recommend clinical correlation. No evidence of parenchymal hemorrhages or contusions. Electronically Signed: Niko Pepper MD at 15:03 EDT ,
--- NOTE | 2022-01-09 14:50 | RAD_ITS ---
INDICATION: SOB EXAMINATION/TECHNIQUE: X-RAY - XR Chest 2 Views COMPARISON: 01/09/2022. FINDINGS: Poor inspiratory effort is seen. Surgical clips visualized in the right axilla. Surgical clips visualized superimposed over the gallbladder fossa. LINES/DEVICES: None. LUNGS: No consolidation, edema or effusion. No pneumothorax. MEDIASTINUM AND CARDIOVASCULAR STRUCTURES: Cardiac silhouette slightly prominent in size, atherosclerotic calcification visualized in the aortic arch. BONES AND SOFT TISSUES: Degenerative bone changes seen. RAD/Chest PA and Lateral IMPRESSION: No radiographic evidence of acute cardiopulmonary disease. Electronically Signed: Niko Pepper MD at 15:06 EDT ,
--- NOTE | 2022-01-09 14:50 | RAD_ITS ---
INDICATION: ABD PAIN -- HAVING CAT SCAN FIRST EXAMINATION/TECHNIQUE: X-RAY - XR Abdomen 1 View COMPARISON: None FINDINGS: Surgical clips visualized in the gallbladder fossa. BOWEL GAS PATTERN: Non-obstructive. No bowel or stomach distention. Abundance of stool visualized in the large bowel. FREE AIR: Not assessed on a single supine view. ORGANOMEGALY: Not seen. CALCIFICATIONS: No abnormal calcifications observed. A 4 mm calcification visualized along the lateral aspect of the transverse process of the L1 vertebral body that on correlation with the CT scan images represents calcification within the left renal artery. Atherosclerotic calcification of the abdominal aorta seen. LOWER CHEST: 0.8 cm calcification visualized superimposed over the right lower lung field. BONES AND SOFT TISSUES: No acute pathology. RAD/Abdomen Single View IMPRESSION: Abundance of stool in the large bowel. Non-obstructive bowel gas pattern. Electronically Signed: Niko Pepper MD at 15:12 EDT ,
== END 2022-01-09 23:59 | disposition home or self-care (01) ==
PROVIDERS: PCP Family Medicine Geriatric Medicine; Visit Provider Family Medicine Geriatric Medicine
DX: R51.9 Headache, unspecified (principal); R10.9 Unspecified abdominal pain; R06.02 Shortness of breath; R68.83 Chills (without fever); Z20.822 Contact with and (suspected) exposure to COVID-19
CPT/HCPCS: 70450; 71046; 74018; 87635; 87804; 87807; U0003; U0005

== ENCOUNTER → 2022-01-10 | Outpatient (CLI) | payer MEDICARE, SELFPAY ==
--- NOTE | 2022-01-10 11:43 | MRI_ITS ---
STUDY: MRI BRAIN WITHOUT CONTRAST REASON FOR EXAM: Female, 76 years old. CEREBRAL INFARCTION, GENERALIZED WEAKNESS, FATIGUE, R OCCIPITAL HEADACHE TECHNIQUE: Standardized multiplanar fat and water weighted pulse sequences were obtained. CT scan of the brain obtained on 01/09/2022 COMPARISON: None. FINDINGS: No evidence of restricted diffusion is visualized, the ADC map is unremarkable. No evidence of acute infarct is seen. No evidence of signal dropout on the gradient echo sequence to suggest hemosiderin deposits. Extensive scattered areas of T2 prolongation are visualized in the periventricular and subcortical white matter consistent with chronic microvascular disease. Scattered chronic lacunar infarcts are visualized. Mild prominence of the ventricles and sulci is visualized consistent with the chronic atrophic brain changes. Areas of focal encephalomalacia and the prominence of the perivascular spaces visualized in bilateral basal ganglia consistent with chronic microvascular insults. No evidence of parenchymal hemorrhages or contusions, no evidence of intra or extra-axial fluid collection is seen. Unremarkable flow voids within the major intracranial circulation suggesting patency by spin echo criteria. Normal sella turcica, pituitary gland, infundibular stalk, optic chiasm and hypothalamus. Normal tectal plate and pineal gland. Unremarkable midbrain, myriam and medulla. Unremarkable cerebellum. Unremarkable basal cisterns. Unremarkable bilateral temporal bones. Unremarkable bilateral internal auditory canals. No demonstrated orbital abnormality, within the constraints of a routine brain study. Circumferential mucosal thickening visualized in the paranasal sinuses.. Normal calvarium and skull base. Normal visualized soft tissue structures. Normal visualized upper cervical spine. MRI/Brain without Contrast IMPRESSION: Chronic microvascular disease and chronic atrophic brain changes seen. No evidence of acute intracranial pathology is seen. Electronically Signed: Niko Pepper MD at 13:23 EDT ,
== END | disposition home or self-care (01) ==
LOC: MRI 11:36
PROVIDERS: PCP Family Medicine Geriatric Medicine; Referring Provider Family Medicine Geriatric Medicine; Visit Provider Family Medicine Geriatric Medicine
DX: R53.83 Other fatigue (principal); Z86.73 Personal history of transient ischemic attack (TIA), and cerebral infarction without residual deficits
CPT/HCPCS: 36415; 70551; 80053; 84443; 85025; J7030; A4216

== ENCOUNTER → 2022-01-10 | Outpatient (CLI) | payer MEDICARE, SELFPAY ==
[2022-01-10] MEDS: 0.9% Normal Saline 1,000 ML 999 ML IV ×2 (09:03→10:05)
[2022-01-10] MEDS: 0.9% NaCl Peripheral Flush Adult/Peds IV (09:04)
[2022-01-10 09:08] VITALS: BP 140/97; PULSE 67; RESP 16; TEMP 36.1; O2SAT 95; BMI 28.9
[2022-01-10 09:50] LABS: Absolute Lymphocyte Count 1.95 X10^3/uL (0.83-4.51); Absolute Neutrophil Count 3.2 X10^3/uL (2.0-7.7); Basophil# 0.05 X10^3/uL; Basophil% 0.9 % (0-1); Eosinophil# 0.11 X10^3/uL; Eosinophils% 1.9 % (0-5); Hematocrit 41.9 % (37-47); Hemoglobin 13.8 g/dL (12.0-15.0); Lymphocyte # 1.95 X10^3/ul (0.83-4.51); Lymphocyte % 33.4 % (19-41); Mean Corp Hgb Conc 32.9 g/dL (32-36); Mean Corpuscular Hgb 31.7 pg (27.0-32.0); Mean Corpuscular Volume 96.1 fL (81-99); Monocyte# 0.56 X10^3/uL; Monocyte% 9.6 % (0-10); NRBC Flagged by Analyzer 0 % (0-5); Neutrophil # 3.16 X10^3/uL (2.7-7.7); Platelet Count 223 K/mm3 (150-450); RBC Distribution Width CV 13.6 % (11.6-14.6); RBC Distribution Width SD 48.7 fl (35.1-43.9); Red Blood Count 4.36 M/mm3 (4.2-5.4); White Blood Count 5.8 K/mm3 (4.4-11.0)
[2022-01-10 10:30] LABS: BUN 16 mg/dL (7-18); Creatinine, Serum 0.94 mg/dL (0.55-1.02); Estimated Creatinine Clearance 40.27 ml/min; Glucose 105 mg/dL (74-106)
[2022-01-10 10:31] LABS: ALB/GLOB Ratio 1.1 RATIO (0.9-2.4); AST(SGOT) 28 U/L (15-37); Alanine Aminotransfer ALT/SGPT 38 U/L (13-56); Albumin, Serum 3.8 g/dL (3.2-5.0); Alkaline Phosphatase 119 U/L (45-117); Anion Gap 5 (5-15); BUN/Creat Ratio 16.9 RATIO (10-20); Calcium,Total 9.1 mg/dL (8.5-10.1); Chloride 101 mmol/L (98-107); EST Glomerular Filtration Rate 61 mL/min (>60); Est Glom Filt Rate - Afr Amer 74 mL/min (>60); Globulin 3.4 g/dL (2.2-4.2); Potassium 4.2 mmol/L (3.5-5.1); Protein, Total 7.2 g/dL (6.4-8.2); Sodium Level 138 mmol/L (136-145); Thyroid Stim Hormone (TSH) 1.34 uIU/mL (0.358-3.74)
[2022-01-10 11:28] VITALS: BP 152/95; PULSE 73; RESP 16; TEMP 35.8; O2SAT 95
== END | disposition home or self-care (01) ==
LOC: MEDOUTP 08:47
PROVIDERS: PCP Family Medicine Geriatric Medicine; Referring Provider Family Medicine Geriatric Medicine; Visit Provider Family Medicine Geriatric Medicine
CPT/HCPCS: 36415; 80053; 84443; 85025; J7030; A4216

== ENCOUNTER 2022-01-16 14:18 | Emergency (ER) | payer MEDICARE, SELFPAY ==
[2022-01-16 14:23] VITALS: BP 154/89; PULSE 89; RESP 10; TEMP 36.7; O2SAT 97; BMI 29.5
[2022-01-16 14:43] VITALS: BP 173/103; PULSE 73; RESP 10; O2SAT 95
--- NOTE | 2022-01-16 15:31 | EKG12_ITS ---
Test Reason : CP Blood Pressure : / mmHG Vent. Rate : 072 BPM Atrial Rate : 072 BPM P-R Int : 160 ms QRS Dur : 078 ms QT Int : 386 ms P-R-T Axes : 028 -34 032 degrees QTc Int : 422 ms Normal sinus rhythm Left axis deviation Poor R wave progression Abnormal ECG Confirmed by AMRITA DYE, LIZA ([id number]), photo editor TERRELL CHARLES ([id number]) on 01/18/2022 10:11:39 AM Referred By: Confirmed By:LIZA CROWE MD
--- NOTE | 2022-01-16 15:33 | EX.ED.DYSGE1 ---
HPI History of Present Illness Chief Complaint: Weakness Informant: patient, spouse/S.O. and family Onset/Context/Timing Onset: Weeks Context: Gradual Onset Timing: Intermittent Current Severity: Gone Maximum Severity: Mild Narrative Narrative: 76-old female history of anxiety, fatty liver prior breast cancer with lumpectomy and skin cancer. States for weeks if not longer she gets intermittent episodes where she just feels generally weak. She is described these as spells. and daughter with her. They have had extensive work-up through the primary care physician, Dr. Cuellar, without any diagnosis. She denies any chest pain, abdominal pain or shortness of breath. She had mild nausea without vomiting. No dysuria. No fever or chills. She had an episode this morning around 8 AM. Generally gets better throughout the morning and by the afternoon she is back to her baseline. Currently she is symptom-free. Prior similar symptoms: Yes Recent Illness/Hospitalization: No PFSH PFSH Medical History Anxiety Fatty liver Home Medications multivitamin [Daily Multiple] 1 tab PO DAILY 05/11/17 [History Last Taken 05/11/17 08:00] omega-3 fatty acids-fish oil [Fish Oil 1,000 mg Capsule] 1 ea PO DAILY 10/20/18 [History Last Taken Unknown] ondansetron 8 mg PO Q8H PRN PRN #10 tab 11/27/19 [Rx Last Taken Unknown] ascorbic acid (vitamin C) [Vitamin C] 100 mg PO DAILY 01/10/22 [History Last Taken Unknown] vitamin B complex 1 cap PO/SL DAILY 01/10/22 [History Last Taken Unknown] zinc 1 tab PO DAILY 01/10/22 [History Last Taken Unknown] Allergy/AdvReac Type Severity Reaction Status Date / Time No Known Allergies Allergy Verified 01/16/22 14:22 Social History Smoking Status: Never smoker ROS ROS ED ROS Narrative Generalized weakness. Review of Systems ROS Unobtainable: Denies due to encephalopathy Constitutional Constitutional ED: Denies fever(s) Eyes Eyes: Denies change in vision ENT ENT ED: Denies ear pain Cardiovascular Cardiovascular: Denies chest pain, palpitations or racing heartbeat Respiratory/Chest Respiratory/Chest: Denies cough or dyspnea Gastrointestinal Gastrointestinal: Denies abdominal pain, diarrhea, nausea or vomiting Genitourinary Genitourinary ED: Denies dysuria Musculoskeletal Musculoskeletal: Denies arthralgias or myalgias Integumentary Denies rash Neurologic Neurologic: Denies headache(s) Psychiatric Psychiatric: Denies depression Endocrine Endocrinology: Denies polyuria Allergic/Immunologic Allergic/Immunologic ED: Denies urticaria EXAM Physical Exam Narrative Exam Narrative: 76-year-old female no acute distress. Vital signs stable afebrile. Pulse ox 97% on room air no signs hypoxia. She is in no distress. Appears comfortable. Daughter and at bedside. HEENT exam unremarkable. Moist mucous membranes. Neck nontender no lymphadenopathy. Lungs clear to auscultation. Heart regular rhythm no murmur. Rate about 70. Abdomen soft nontender normal bowel sounds no peritoneal signs. Moving all 4 extremities. Calves nontender without edema or cords. Neurologically she is awake and alert with no focal motor deficits. Const Vital Signs: 01/16/22 14:23 01/16/22 14:43 01/16/22 14:45 Temperature 98.1 F Temperature Source Temporal Pulse Rate 89 73 Respiratory Rate 10 L 10 L Respiratory Effort Normal Non-Labored Blood Pressure 154/89 H 173/103 H Blood Pressure Mean 110 126 Pulse Ox 97 95 Oxygen Delivery Method Room Air Room Air 01/16/22 16:33 Temperature Temperature Source Pulse Rate 66 Respiratory Rate 12 Respiratory Effort Blood Pressure 152/92 H Blood Pressure Mean 112 Pulse Ox 93 Oxygen Delivery Method Positive well nourished, well developed and obese; Negative for cachectic, contractures or unkempt General Appearance ED: well developed and NAD; Negative for unkempt, cachectic, contractures, cyanotic, diaphoretic or pallor Nutritional Appearance: obese; Negative for cachectic HEENT Reports moist mucous membranes tenderness; Negative for trauma Eyes PERRL and EOMs intact bilaterally General Eye ED: Negative for pale conjunctiva or scleral icterus Neck no lymphadenopathy, supple and no JVD General: Negative for tenderness Chest Wall inspection of chest normal and palpation of chest normal Resp normal respiratory effort and clear to auscultation bilaterally Effort and Inspection: Negative for pain with movement Auscultation: Negative for rales, rhonchi or wheezes Cardio regular rate, regular rhythm, S1 normal heart sound, S2 normal heart sound and no murmurs GI normal to inspection, nondistended, normoactive bowel sounds, non-tender, non-distended and no masses Inspection: Negative for abdominal distention Auscultation: normoactive bowel sounds Palpation: soft; Negative for tender, guarding or rebound tenderness present Back/Spine no CVA tenderness General Back: Negative for CVA tenderness Cervical Spine: Negative for cervical spine tenderness Thoracic Spine / Upper Back: Negative for thoracic spinal tenderness or paraspinal muscle tenderness Extremity normal to inspection General Extremety ED: Negative for edema or tenderness General Extremity: Negative for edema Neuro oriented x3 Sensorium / Orientation: alert; Negative for orientation impaired, lethargic or stuporous Motor Exam: strength 5/5 throughout; Negative for general weakness Psych mental status grossly normal Appearance: Negative for unkempt Attitude: No agitated Mood & Affect: Negative for depressed or tearful Skin no rashes or lesions noted, no wounds and skin turgor normal General Skin Exam: Negative for jaundice or pallor MDM MDM MDM Narrative Medical decision making narrative: 76-year-old female with spells of weakness. Exam benign. She has had recent work-ups that are negative. I explained the family and happy to get some screening labs on her binding as specifically come up with a cause with a normal exam and current normal vital signs and currently she is symptom-free. Patient doing well. She will be sure to follow-up with her primary care physician. For further outpatient testing. They may want to consider cardiac monitoring since he has come in episodes. Lab Data Attestation: I reviewed the patient's lab results. Lab results narrative: CBC normal white count 5. H&H of 13 and 39. Platelets 200. Electrolytes gap of 8 normal BUN and creatinine. Normal liver enzymes. UA negative no signs of infection. No reds, white cells nor nitrates nor bacteria. Labs: Laboratory Results - last 24 hr 01/16/22 01/16/22 01/16/22 15:40 15:40 15:40 WBC 5.1 RBC 4.09 L Hgb 13.1 Hct 39.9 MCV 97.6 MCH 32.0 MCHC 32.8 RDW Std Deviation 49.0 H RDW Coeff of Jeffrey 13.5 Plt Count 200 MPV 10.1 Immature Gran % (Auto) 0.200 Neut % (Auto) 59.9 Lymph % (Auto) 27.6 Mcdowell % (Auto) 9.1 Eos % (Auto) 2.4 Baso % (Auto) 0.8 Absolute Neuts (auto) 3.0 Absolute Lymphs (auto) 1.40 Nucleated RBC % 0 Sodium 139 Potassium 3.7 Chloride 101 Carbon Dioxide 30.0 Anion Gap 8 BUN 11 Creatinine 0.92 Estim Creat Clear Calc 39.26 Est GFR (MDRD) Af Amer 76 Est GFR (MDRD) Non-Af 63 BUN/Creatinine Ratio 11.9 Glucose 92 Calcium 9.1 Total Bilirubin 0.50 AST 25 ALT 37 Alkaline Phosphatase 110 Total Protein 7.0 Albumin 3.8 Globulin 3.2 Albumin/Globulin Ratio 1.2 Urine Color Straw Urine Clarity Clear Urine pH 8.0 Ur Specific Ducor 1.010 Urine Protein Negative Urine Glucose (UA) Normal Urine Ketones Negative Urine Occult Blood Negative Urine Nitrite Negative Urine Bilirubin Negative Urine Urobilinogen Normal Ur Leukocyte Esterase 25 H Urine RBC 0 SEEN Urine WBC 0 SEEN Ur Squamous Epith Cells 0 SEEN Urine Bacteria 0 SEEN Urine Mucus 0 SEEN Rhythm Strip Rhythm Strip: Sinus Rhythm Rate: 72 Ectopy: None EKG Initial EKG: Attestation: I personally reviewed and interpreted this EKG as follows: Interpretation: Sinus Rhythm and No Acute Injury Pattern Comments: Normal sinus rhythm rate 72 no acute signs of [place] no ischemia. Discharge Plan Triage Chief Complaint: Weakness ED Provider: Jayson Carrasco Dx/Rx/DC Orders Clinical Impression: Weakness, Anxiety Instructions: ED Weakness (Uncertain Cause) Prescriptions: No Action multivitamin [Daily Multiple] 1 EACH tablet 1 tab PO DAILY RF: 0 Fish Oil 1 EACH capsule 1 ea PO DAILY RF: 0 ondansetron 4 MG tablet 8 mg PO Q8H PRN PRN (Reason: Nausea) Qty: 10 RF: 0 Vitamin C 100 mg Tablet 100 mg PO DAILY RF: 0 zinc Tablet,Chewable 1 tab PO DAILY RF: 0 vitamin B complex 1 cap PO/SL DAILY RF: 0 Primary Care Provider: North Cuellar Chi Referrals: North Cuellar Chi, MD [Primary Care Provider] - As soon as possible Activity Restrictions/Additional Instructions: Follow-up with your primary care physician. Your labs today were normal. They may want to do a assembly machine feeder at home. Disposition Disposition: Home, Self Care
[2022-01-16 15:48] LABS: Bacteria 0 SEEN /hpf (None Seen); Mucous, Urine 0 SEEN /hpf (<or=2+); Red Blood Cells-Urine 0 SEEN /hpf (0-5); Squamous Epithelial Cells - UA 0 SEEN /hpf (5-10); White Blood Cells 0 SEEN /hpf (0-5)
[2022-01-16 15:49] LABS: Basophil# 0.04 X10^3/uL; Basophil% 0.8 % (0-1); Eosinophil# 0.12 X10^3/uL; Eosinophils% 2.4 % (0-5); Hematocrit 39.9 % (37-47); Hemoglobin 13.1 g/dL (12.0-15.0); Lymphocyte % 27.6 % (19-41); Mean Corp Hgb Conc 32.8 g/dL (32-36); Mean Corpuscular Volume 97.6 fL (81-99); Mean Platelet Vol. 10.1 fl (6.2-12.0); Monocyte# 0.46 X10^3/uL; Monocyte% 9.1 % (0-10); NRBC Flagged by Analyzer 0 % (0-5); Neutrophil # 3.04 X10^3/uL (2.7-7.7); Neutrophil % 59.9 % (47-70); Platelet Count 200 K/mm3 (150-450); RBC Distribution Width CV 13.5 % (11.6-14.6); Red Blood Count 4.09 M/mm3 (4.2-5.4); White Blood Count 5.1 K/mm3 (4.4-11.0)
[2022-01-16 15:51] LABS: Color, Urine Straw (Yellow); Glucose, Dipstick Normal (Normal); Ketone-Dipstick Negative (Negative); Leukocyte Esterase-Dipstick 25 /ul (Negative); Nitrite-Dipstick Negative (Negative); Occult Blood-Urine Negative /ul (Negative); Protein-Dipstick Negative (Negative); Urine Bilirubin Dipstick Negative (Negative); Urine Clarity Clear (Clear); Urine Urobilinogen Normal (Normal)
[2022-01-16 16:08] LABS: ALB/GLOB Ratio 1.2 RATIO (0.9-2.4); AST(SGOT) 25 U/L (15-37); Alanine Aminotransfer ALT/SGPT 37 U/L (13-56); Albumin, Serum 3.8 g/dL (3.2-5.0); Alkaline Phosphatase 110 U/L (45-117); Anion Gap 8 (5-15); BUN 11 mg/dL (7-18); BUN/Creat Ratio 11.9 RATIO (10-20); Calcium,Total 9.1 mg/dL (8.5-10.1); Chloride 101 mmol/L (98-107); Creatinine, Serum 0.92 mg/dL (0.55-1.02); EST Glomerular Filtration Rate 63 mL/min (>60); Est Glom Filt Rate - Afr Amer 76 mL/min (>60); Estimated Creatinine Clearance 39.26 ml/min; Globulin 3.2 g/dL (2.2-4.2); Glucose 92 mg/dL (74-106); Potassium 3.7 mmol/L (3.5-5.1); Sodium Level 139 mmol/L (136-145)
[2022-01-16 16:33] VITALS: BP 152/92; PULSE 66; RESP 12; O2SAT 93
[2022-01-16 17:02] VITALS: BP 148/74; PULSE 74; RESP 17; O2SAT 98
== END 2022-01-16 17:04 | disposition home or self-care (01) ==
PROVIDERS: Emergency Provider Emergency Medicine; PCP Family Medicine Geriatric Medicine; Visit Provider Emergency Medicine
DX: R53.1 Weakness (principal); R11.0 Nausea; F41.9 Anxiety disorder, unspecified
CPT/HCPCS: 80053; 81001; 85025; 93005; 99283; A4216

== ENCOUNTER → 2022-01-17 | Outpatient (CLI) | payer MEDICARE, SELFPAY ==
--- NOTE | 2022-01-17 10:07 | CT_ITS ---
STUDY: CT ABDOMEN AND PELVIS WITH CONTRAST REASON FOR EXAM: Female, 76 years old. ABD PAIN,NAUSEA. Right lower quadrant pain. History of right breast carcinoma with lumpectomy and chemotherapy. RADIATION DOSAGE (If Supplied By Facility): CTDIvol = ( 14.33 ) mGy, DLP = ( 905.93 ) mGycm TECHNIQUE: Transaxial images were obtained from the dome of the diaphragm to the symphysis pubis without oral contrast. IV 100mL Isovue-300 was administered. Sagittal and coronal images were reconstructed. Individualized dose optimization techniques were used for this CT. COMPARISON: Comparison is made with prior examination dated 04/04/2021. FINDINGS: The visualized lung bases are unremarkable. Coronary artery calcification. There is decreased attenuation of the liver consistent with steatosis. There are surgical clips in the gallbladder fossa consistent with a prior cholecystectomy. Normal spleen. Normal pancreas. Normal bilateral adrenal glands. Normal right kidney. Normal left kidney. Normal visualized stomach. Normal small intestine. There are multiple colonic diverticula consistent with diverticulosis. The appendix is visualized and appears normal. There is scattered atherosclerotic calcification of the abdominal aorta and its major visceral branches, without a demonstrated aneurysm. Normal inferior vena cava. Normal retroperitoneum. Normal urinary bladder. There is absence of the uterus consistent with a prior hysterectomy. Normal abdominal wall. There are diffuse degenerative changes of the visualized lumbar spine. Stable grade 1 anterolisthesis of L4 ON L5. Levoscoliosis. CT/Abdomen/Pelvis WITH Contrast IMPRESSION: Diffuse fatty infiltration of the liver. Sigmoid diverticulosis. Electronically Signed: Alexis Lee MD at 12:55 EDT ,
[2022-01-17 14:53] LABS: Absolute Lymphocyte Count 1.42 X10^3/uL (0.83-4.51); Absolute Neutrophil Count 3.3 X10^3/uL (2.0-7.7); Basophil# 0.04 X10^3/uL; Basophil% 0.7 % (0-1); Eosinophil# 0.16 X10^3/uL; Hematocrit 40.1 % (37-47); Hemoglobin 13.2 g/dL (12.0-15.0); Lymphocyte # 1.42 X10^3/ul (0.83-4.51); Lymphocyte % 26.5 % (19-41); Mean Corp Hgb Conc 32.9 g/dL (32-36); Mean Corpuscular Hgb 31.8 pg (27.0-32.0); Mean Corpuscular Volume 96.6 fL (81-99); Mean Platelet Vol. 9.9 fl (6.2-12.0); Monocyte# 0.44 X10^3/uL; Monocyte% 8.2 % (0-10); NRBC Flagged by Analyzer 0 % (0-5); Neutrophil # 3.27 X10^3/uL (2.7-7.7); Neutrophil % 61.2 % (47-70); Platelet Count 196 K/mm3 (150-450); RBC Distribution Width CV 13.6 % (11.6-14.6); RBC Distribution Width SD 48.8 fl (35.1-43.9); Red Blood Count 4.15 M/mm3 (4.2-5.4); White Blood Count 5.4 K/mm3 (4.4-11.0)
[2022-01-17 15:07] LABS: D-Dimer Quantitative (DVT/PE) 0.43 FEU/ug/m (0.27-0.49)
[2022-01-17 15:11] LABS: Anion Gap 3 (5-15); BUN 11 mg/dL (7-18); BUN/Creat Ratio 10.7 RATIO (10-20); CPK Total, Creatine Kinase 79 U/L (26-192); Chloride 101 mmol/L (98-107); Creatinine, Serum 1.03 mg/dL (0.55-1.02); EST Glomerular Filtration Rate 55 mL/min (>60); Est Glom Filt Rate - Afr Amer 67 mL/min (>60); Glucose 159 mg/dL (74-106); Potassium 4.3 mmol/L (3.5-5.1); Sodium Level 137 mmol/L (136-145); Troponin-I HS 5 pg/mL (3.0-54.0)
[2022-01-17 15:48] LABS: BNP,B-Type NATRIURETIC PEPTIDE 50.1 pg/mL (0-100)
[2022-01-19 09:44] LABS: Myoglobin, Serum 37 ng/mL (25-58)
== END | disposition home or self-care (01) ==
PROVIDERS: PCP Family Medicine Geriatric Medicine; Referring Provider Family Medicine Geriatric Medicine; Visit Provider Family Medicine Geriatric Medicine
DX: R10.9 Unspecified abdominal pain (principal); R11.0 Nausea; R06.02 Shortness of breath
CPT/HCPCS: 36415; 74177; 80048; 82550; 83874; 83880; 84484; 85025; 85379; Q9967

== ENCOUNTER → 2022-01-29 | Outpatient (CLI) | payer MEDICARE, SELFPAY ==
--- NOTE | 2022-01-29 13:59 | ECHOCS_ITS ---
Reason For Study: SOB Procedure This was a 2D Doppler, Color Flow transthoracic echocardiogram. The study was technically difficult. Contrast injection was performed. Left Ventricle Based upon the 2D echocardiographic and contrast enhanced images obtained there appears to be grossly normal left ventricular size, wall motion, and systolic function. The estimated ejection fraction is 65 %. No evidence for diastolic dysfunction. Right Ventricle Normal RV size. Normal systolic function. Atria Normal left atrium. Normal right atrium. No doppler evidence for ASD. Mitral Valve There is no mitral annular calcification. Normal mitral valve. Mild (1+) eccentric mitral valve insufficiency. Tricuspid Valve Normal tricuspid valve. Mild tricuspid valve insufficiency. Right ventricular systolic pressure estimated to be 29 mmHg. Aortic Valve Trisinus/trileaflet aortic valve. Normal aortic valve. Trivial aortic valve insufficiency. Pulmonic Valve The pulmonic valve is not well visualized. Great Vessels Borderline enlarged aortic root. Pericardium/Pleural No pericardial effusion. Medication 22 gauge I.V. with prn adaptor inserted into left arm. Diluted definity 2.5ml given slow IV push to enhance endocardial definition. Performed a rapid injection of agitated mix of 9 cc saline and 1cc air to assess for atrial septal defect. MMode/2D Measurements & Calculations LVIDd: 3.6 cm IVSd: 1.4 cm Ao root diam: 3.8 cm LVIDs: 2.4 cm LVPWd: 1.1 cm LA dimension: 3.7 cm FS: 33.3 % LAV(MOD-bp): 38.5 ml LA A4 area: 12.6 cm2 LAV(MOD-bp) Indexed: 22.4 ml/m2 LAV(MOD-sp2): 47.0 ml LAV(MOD-sp4): 28.1 ml Time Measurements MV dec time: 0.34 sec Doppler Measurements & Calculations MV E max artie: 51.1 cm/sec Lat Peak E' Artie: 8.3 cm/sec Med Peak E' Artie: 5.0 cm/sec MV A max artie: 115.9 cm/sec E/E' lat: 6.2 E/E' med: 10.2 MV E/A: 0.44 MV V2 max: 122.3 cm/sec MV P1/2t max artie: 67.9 cm/sec Ao V2 max: 130.3 cm/sec MV max P.0 mmHg MV P1/2t: 100.7 msec Ao max P.8 mmHg MV V2 mean: 56.5 cm/sec MV dec slope: 197.7 cm/sec2 MV mean P.6 mmHg MV V2 VTI: 29.8 cm MVA(P1/2t): 2.2 cm2 AI max artie: 321.4 cm/sec LV V1 max: 131.9 cm/sec PA V2 max: 79.9 cm/sec AI max P.3 mmHg LV V1 max P.0 mmHg AI dec slope: 175.9 cm/sec2 AI P1/2t: 535.0 msec TR max artie: 254.0 cm/sec TR max P.8 mmHg ECHO/Echo Complete W/ Contrast Interpretation Summary The study was technically difficult. Contrast injection was performed. Based upon the 2D echocardiographic and contrast enhanced images obtained there appears to be grossly normal left ventricular size, wall motion, and systolic function. The estimated ejection fraction is 65 %. Mild (1+) eccentric mitral valve insufficiency. Mild tricuspid valve insufficiency. Trivial aortic valve insufficiency. Borderline enlarged aortic root. Right ventricular systolic pressure estimated to be 29 mmHg. No evidence for diastolic dysfunction. Ordering Physician: North Cuellar Referring Physician: North Cuellar Chi Performed By: Papa Vallecillo RCS
== END | disposition home or self-care (01) ==
LOC: CVS 13:57
PROVIDERS: PCP Family Medicine Geriatric Medicine; Referring Provider Family Medicine Geriatric Medicine; Visit Provider Family Medicine Geriatric Medicine
DX: R06.02 Shortness of breath (principal)
CPT/HCPCS: 93306; Q9957; A4216; C8929

== ENCOUNTER → 2022-01-31 | Outpatient (CLI) | payer MEDICARE, SELFPAY ==
--- NOTE | 2022-01-31 14:51 | PFTCOMP ---
COMPLETE PULMONARY FUNCTION TEST INTERPRETATION Brief HPI: Patient is a 76-year-old female, currently under the care of Dr. Cuellar, who presents to [facility] for complete pulmonary function tests secondary to diagnosis of dyspnea. Respiratory therapist reports good effort and reproducible results. Interpretation: Forced expiration spirometry shows no large airways obstructive ventilatory defect with an FEV1 of 83% predicted. There is no significant bronchodilator response by strict ATS criteria. Spirograms are of good quality and plateau normally. The respiratory flow volume loop shows a normal pattern. Lung volumes by body plethysmography show a normal total lung capacity at 4.19 L, 96% predicted. All other lung volumes are within normal limits. Diffusion capacity by carbon monoxide is normal at 71% predicted. The airway resistance is normal. No previous pulmonary function tests were available for review. Impression: Grossly normal pulmonary function test. Could consider a bronchoprovocation study if asthma is a consideration.
== END | disposition home or self-care (01) ==
PROVIDERS: PCP Family Medicine Geriatric Medicine; Referring Provider Family Medicine Geriatric Medicine; Visit Provider Family Medicine Geriatric Medicine
DX: R68.83 Chills (without fever) (principal); R06.02 Shortness of breath; Z20.822 Contact with and (suspected) exposure to COVID-19
CPT/HCPCS: 87635; 87804; 87807; 94060; 94726; 94729; U0003; U0005

== ENCOUNTER → 2022-04-18 | Outpatient (CLI) | payer MEDICARE, SELFPAY ==
[2022-04-18 17:21] LABS: Absolute Lymphocyte Count 1.61 X10^3/uL (0.83-4.51); Absolute Neutrophil Count 3.3 X10^3/uL (2.0-7.7); Basophil# 0.04 X10^3/uL; Basophil% 0.7 % (0-1); Eosinophil# 0.09 X10^3/uL; Eosinophils% 1.6 % (0-5); Hematocrit 38.9 % (37-47); Hemoglobin 12.9 g/dL (12.0-15.0); Lymphocyte # 1.61 X10^3/ul (0.83-4.51); Lymphocyte % 29.2 % (19-41); Mean Corp Hgb Conc 33.2 g/dL (32-36); Mean Corpuscular Volume 99.5 fL (81-99); Mean Platelet Vol. 10.7 fl (6.2-12.0); Monocyte% 9.1 % (0-10); NRBC Flagged by Analyzer 0 % (0-5); Neutrophil # 3.26 X10^3/uL (2.7-7.7); Platelet Count 195 K/mm3 (150-450); RBC Distribution Width CV 12.7 % (11.6-14.6); RBC Distribution Width SD 46.3 fl (35.1-43.9); Red Blood Count 3.91 M/mm3 (4.2-5.4); White Blood Count 5.5 K/mm3 (4.4-11.0)
[2022-04-18 17:37] LABS: Vitamin D,25 Hydroxy 29.4 ng/mL
[2022-04-18 17:47] LABS: ALB/GLOB Ratio 1.2 RATIO (0.9-2.4); AST(SGOT) 28 U/L (15-37); Alanine Aminotransfer ALT/SGPT 33 U/L (13-56); Albumin, Serum 3.7 g/dL (3.2-5.0); Alkaline Phosphatase 116 U/L (45-117); Anion Gap 4 (5-15); BUN 15 mg/dL (7-18); BUN/Creat Ratio 17.5 RATIO (10-20); Calcium,Total 9.1 mg/dL (8.5-10.1); Chloride 101 mmol/L (98-107); Creatinine, Serum 0.86 mg/dL (0.55-1.02); EST Glomerular Filtration Rate 68 mL/min (>60); Est Glom Filt Rate - Afr Amer 82 mL/min (>60); Globulin 3.1 g/dL (2.2-4.2); Glucose 112 mg/dL (74-106); Potassium 4.3 mmol/L (3.5-5.1); Protein, Total 6.8 g/dL (6.4-8.2); Sodium Level 137 mmol/L (136-145); Thyroid Stim Hormone (TSH) 0.66 uIU/mL (0.358-3.74)
== END | disposition home or self-care (01) ==
LOC: POLAB3 14:39
PROVIDERS: PCP Family Medicine Geriatric Medicine; Visit Provider Family Medicine Geriatric Medicine
DX: R53.83 Other fatigue (principal); E55.9 Vitamin D deficiency, unspecified
CPT/HCPCS: 36415; 80053; 82306; 84443; 85025

== ENCOUNTER → 2022-10-14 | Outpatient (CLI) | payer MEDICARE, SELFPAY ==
--- NOTE | 2022-10-14 17:23 | CT_ITS ---
STUDY: CT BRAIN WITHOUT CONTRAST REASON FOR EXAM: Female, 77 years old. Change in mental status RADIATION DOSAGE (If Supplied By Facility): CTDIvol = ( 44.99 ) mGy, DLP = ( 796.11 ) mGycm TECHNIQUE: Transaxial CT imaging of the brain was performed without administration of intravenous contrast material. Individualized dose optimization techniques were used for this CT. COMPARISON: 01/09/2022. FINDINGS: Normal soft tissue structures. Normal calvarium. There is mild cerebral atrophy with widening of the extra-axial spaces and ventricular dilatation. There are areas of decreased attenuation within the white matter tracts of the supratentorial brain, consistent with microvascular disease changes. There is no intracranial hemorrhage. No acute territorial infarct. Chronic lacunar infarcts in the right caudate nucleus, left basal ganglia and left thalamic nucleus. No change from the prior study. Mild mucosal thickening in the right maxillary sinus. CT/Brain/Head without Contrast IMPRESSION: No acute findings. Chronic basal ganglia lacunar infarcts. Chronic microvascular ischemic changes. Electronically Signed: Beata Owusu MD at 17:59 EST Reading Location ID and State: [id number] / Tel , Service support ,
== END | disposition home or self-care (01) ==
LOC: CT 17:05
PROVIDERS: PCP Family Medicine Geriatric Medicine; Referring Provider Family Medicine Geriatric Medicine; Visit Provider Family Medicine Geriatric Medicine
DX: R41.82 Altered mental status, unspecified (principal); I63.50 Cerebral infarction due to unspecified occlusion or stenosis of unspecified cerebral artery; N39.0 Urinary tract infection, site not specified; M25.511 Pain in right shoulder; M79.641 Pain in right hand; M25.531 Pain in right wrist; M79.601 Pain in right arm
CPT/HCPCS: 36415; 70450; 73030; 73090; 73110; 73130; 80053; 85025; 87086; 87088

== ENCOUNTER → 2022-10-14 | Outpatient (CLI) | payer MEDICARE, SELFPAY ==
[2022-10-14 17:13] LABS: Absolute Lymphocyte Count 2.06 X10^3/uL (0.83-4.51); Absolute Neutrophil Count 4.4 X10^3/uL (2.0-7.7); Basophil# 0.05 X10^3/uL; Basophil% 0.7 % (0-1); Eosinophil# 0.11 X10^3/uL; Eosinophils% 1.5 % (0-5); Hematocrit 40.6 % (37-47); Hemoglobin 13.3 g/dL (12.0-15.0); Lymphocyte # 2.06 X10^3/ul (0.83-4.51); Lymphocyte % 28.5 % (19-41); Mean Corp Hgb Conc 32.8 g/dL (32-36); Mean Corpuscular Hgb 30.9 pg (27.0-32.0); Mean Corpuscular Volume 94.4 fL (81-99); Mean Platelet Vol. 10.2 fl (6.2-12.0); Monocyte# 0.57 X10^3/uL; Monocyte% 7.9 % (0-10); NRBC Flagged by Analyzer 0 % (0-5); Neutrophil # 4.43 X10^3/uL (2.7-7.7); Neutrophil % 61.1 % (47-70); Platelet Count 209 K/mm3 (150-450); RBC Distribution Width CV 12.9 % (11.6-14.6); RBC Distribution Width SD 44.7 fl (35.1-43.9); White Blood Count 7.2 K/mm3 (4.4-11.0)
--- NOTE | 2022-10-14 17:16 | RAD_ITS ---
INDICATION: FALL EXAMINATION/TECHNIQUE: X-RAY - RIGHT XR Wrist Min 3 Views 3 VIEWS COMPARISON: None. FINDINGS: No acute fracture or dislocation. No destructive bone changes. Osteoarthrosis of the trapezium-first metacarpal joint with joint space narrowing, sclerosis, and moderate spurring. Joint spaces are otherwise well-maintained. Normal alignment. Soft tissues are unremarkable. No radiopaque foreign body or soft tissue gas. RAD/Wrist min 3 Views IMPRESSION: No acute findings. Osteoarthrosis of the first CMC joint. Electronically Signed: Beata Owusu MD at 17:48 EST Reading Location ID and State: [id number] / Tel , Service support ,
--- NOTE | 2022-10-14 17:17 | RAD_ITS ---
INDICATION: FALL EXAMINATION/TECHNIQUE: X-RAY - RIGHT XR Hand Min 3 Views 3 VIEWS COMPARISON: None. FINDINGS: No acute fracture or dislocation. No destructive bone changes. Osteoarthrosis of the trapezium-first metacarpal joint with joint space narrowing, sclerosis, and moderate spurring. Osteoarthrosis of the interphalangeal joint of the thumb, second through fifth proximal and distal interphalangeal joints, with joint space narrowing, sclerosis and spurring. Normal alignment. Soft tissues are unremarkable. No radiopaque foreign body or soft tissue gas. RAD/Hand Min 3 Views IMPRESSION: No acute findings. 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 Electronically Signed: Beata Owuus MD at 17:50 EST Reading Location ID and State: [id number] / Tel , Service support ,
--- NOTE | 2022-10-14 17:18 | RAD_ITS ---
INDICATION: FALL EXAMINATION/TECHNIQUE: X-RAY - RIGHT XR Forearm 2 Views 2 VIEWS COMPARISON: None. FINDINGS: No acute fracture or dislocation. No destructive bone changes. Osteoarthrosis of the first carpometacarpal joint. Joint spaces are otherwise well-maintained. Normal alignment. Soft tissues are unremarkable. No radiopaque foreign body or soft tissue gas. RAD/Forearm 2 Views IMPRESSION: No acute findings. Electronically Signed: Beata Owusu MD at 17:47 EST Reading Location ID and State: [id number] / Tel , Service support ,
--- NOTE | 2022-10-14 17:20 | RAD_ITS ---
INDICATION: FALL EXAMINATION/TECHNIQUE: X-RAY - RIGHT XR Shoulder Min 2 Views 4 VIEWS COMPARISON: Chest x-ray 01/09/2022. FINDINGS: SOFT TISSUES: No soft tissue swelling or gas. Surgical clips in the right axilla. BONES/JOINTS: No acute fracture or subluxation.. Normal alignment. Preservation of the joint space.. No sclerotic or destructive changes observed. Mild interstitial prominence in the right lung base. RAD/Shoulder min 2 Views IMPRESSION: No acute findings. Electronically Signed: Beata Owusu MD at 17:46 EST Reading Location ID and State: [id number] / Tel , Service support ,
[2022-10-14 18:06] LABS: ALB/GLOB Ratio 1.1 RATIO (0.9-2.4); AST(SGOT) 26 U/L (15-37); Alanine Aminotransfer ALT/SGPT 32 U/L (13-56); Albumin, Serum 3.7 g/dL (3.2-5.0); Alkaline Phosphatase 136 U/L (45-117); Anion Gap 7 (5-15); BUN 17 mg/dL (7-18); BUN/Creat Ratio 19.1 RATIO (10-20); Chloride 102 mmol/L (98-107); Creatinine, Serum 0.89 mg/dL (0.55-1.02); EST Glomerular Filtration Rate 65 mL/min (>60); Est Glom Filt Rate - Afr Amer 79 mL/min (>60); Globulin 3.5 g/dL (2.2-4.2); Glucose 109 mg/dL (74-106); Potassium 3.7 mmol/L (3.5-5.1); Protein, Total 7.2 g/dL (6.4-8.2); Sodium Level 138 mmol/L (136-145)
== END | disposition home or self-care (01) ==
LOC: POLAB3 16:58
PROVIDERS: PCP Family Medicine Geriatric Medicine; Visit Provider Family Medicine Geriatric Medicine
DX: R41.82 Altered mental status, unspecified (principal); N39.0 Urinary tract infection, site not specified
CPT/HCPCS: 36415; 73030; 73090; 73110; 73130; 80053; 85025; 87086

== ENCOUNTER → 2022-10-21 | Outpatient (CLI) | payer MEDICARE, SELFPAY ==
[2022-10-21 17:15] LABS: Absolute Lymphocyte Count 1.73 X10^3/uL (0.83-4.51); Absolute Neutrophil Count 4.3 X10^3/uL (2.0-7.7); Basophil# 0.05 X10^3/uL; Basophil% 0.8 % (0-1); Eosinophil# 0.08 X10^3/uL; Eosinophils% 1.2 % (0-5); Hematocrit 40.1 % (37-47); Hemoglobin 13.4 g/dL (12.0-15.0); Lymphocyte # 1.73 X10^3/ul (0.83-4.51); Lymphocyte % 26.2 % (19-41); Mean Corp Hgb Conc 33.4 g/dL (32-36); Mean Corpuscular Hgb 30.7 pg (27.0-32.0); Mean Platelet Vol. 10.8 fl (6.2-12.0); Monocyte# 0.42 X10^3/uL; Monocyte% 6.4 % (0-10); NRBC Flagged by Analyzer 0 % (0-5); Neutrophil # 4.32 X10^3/uL (2.7-7.7); Neutrophil % 65.2 % (47-70); Platelet Count 195 K/mm3 (150-450); RBC Distribution Width SD 44.4 fl (35.1-43.9); Red Blood Count 4.36 M/mm3 (4.2-5.4); White Blood Count 6.6 K/mm3 (4.4-11.0)
[2022-10-21 17:22] LABS: Vitamin D,25 Hydroxy 26.6 ng/mL
[2022-10-21 17:28] LABS: ALB/GLOB Ratio 1.1 RATIO (0.9-2.4); AST(SGOT) 28 U/L (15-37); Alanine Aminotransfer ALT/SGPT 32 U/L (13-56); Albumin, Serum 3.7 g/dL (3.2-5.0); Alkaline Phosphatase 124 U/L (45-117); Anion Gap 9 (5-15); BUN 20 mg/dL (7-18); Chloride 103 mmol/L (98-107); Creatinine, Serum 0.83 mg/dL (0.55-1.02); EST Glomerular Filtration Rate 70 mL/min (>60); Est Glom Filt Rate - Afr Amer 85 mL/min (>60); Globulin 3.5 g/dL (2.2-4.2); Glucose 146 mg/dL (74-106); Potassium 3.7 mmol/L (3.5-5.1); Protein, Total 7.2 g/dL (6.4-8.2); Sodium Level 138 mmol/L (136-145); Thyroid Stim Hormone (TSH) 0.88 uIU/mL (0.358-3.74)
== END | disposition home or self-care (01) ==
LOC: POLAB3 13:30
PROVIDERS: PCP Family Medicine Geriatric Medicine; Visit Provider Family Medicine Geriatric Medicine
DX: R53.83 Other fatigue (principal); E55.9 Vitamin D deficiency, unspecified
CPT/HCPCS: 36415; 80053; 82306; 84443; 85025

== ENCOUNTER 2022-12-04 13:30 | Outpatient (RCR) | payer MEDICARE, SELFPAY ==
--- NOTE | 2022-10-22 17:08 | HP.PTEVAL_ITS ---
Patient's Visit Information REYES DUONG is a 77 year old F referred to Physical Therapy by Dr. North Cuellar MD with a diagnosis of Frequent Falls. Date of Evaluation: 10/22/22 Physical Therapist: Jovi León DPT - Visit Plan Frequency: 2x /Week Duration: 4 Weeks Plan: Start with CKC BLE strengthening (progress to HEP). Add in dynamic and static balance. Needs to work narrow ALFIE and directional changes. - Subjective Pt. is here today for her initial evaluation with diagnosis of frequent falls. She reports having a bad fall ~2 years ago when she slipped on ice and hit her head. Imaging came out fine. She reports falls ~5 times since then, with 2 in the last few weeks. Pt. did have xays all negative for fractures. Pt. falls while looking at her phone and tripped over her husbands slipper, then the other time she fell getting out of bed. She does have some dizziness, but no consistent pattern. Pt. reports that her balance has been bad since her fall 2 years ago. Pt. reports having dizziness that prevents her from just getting up and going, but has to wait her her light headedness to resolve. She reports not feeling very galilea since the initial fall. She is hopeful to reduce these symptoms and get back to all household activities without limitations. - Objective POSTURE: Pt. had slight FH posture and flexed posture throughout. Pt. has wide ALFIE in stance, but is able stand without AD. PALPATION: Pt. has no pain with palpation of BLEs. NEURO: normal sensation of BLEs. Normal DTR of BLEs. Pt. is able to rise on heels and toes without issues, but does require a balance aide. ROM: Pt. has good ROM throughout BLEs. She does have tight HS and hip flexors, R worse than L. MMT: LLE: ankle 5-/5 throughout, except PF 4/5; knee: ext 5-/5, flexion 5-/5. hip: flexion 4+/5, abd 4/5, ext 4/5. RLE: ankle 5-/5, except 4/5 PF; knee: ext 4/5, flexion 4/5; hip: flexion 4/5 abd 4/5, ext 4/5. Core strength- poor. GAIT: pt. ambulates without AD. She has wide ALFIE, very guarded posture. Initially she has to pause to stabilize, but is able to ambulate without AD afterwards. She is safery with use of SPC and I did recommend that she use one for all ambulation currently. Pt. consents. VESTIBULAR: She did not having issues with VOR or eye tracking today. Neither caused any dizziness or symptoms. - Balance/Special Test Scores Functional Gait Assessment Score: 14 % Disability: 53.3400 Lower Extremity Functional Score: 23 TUG Test Time Seconds: 15.3 - Goals Goal 1:: LTG: Pt. to be I with HEP. Goal Time Frame: 4-6 Weeks Goal 2:: STG: pt. to ambulate throughout her home with increased stability without reports of falls. Goal Time Frame: 2-4 Weeks Goal 3:: LTG: Pt. to complete TUG with time less than 10second indicating increased stability and reduced risk for falls. Goal Time Frame: 4-6 Weeks Goal 4:: LTG: PT. to have improved FGA to at least 20/30 indicating reduced risk for falls. Goal Time Frame: 4-6 Weeks Goal 5:: LTG: Pt. to be able to negotiate 1 flight of stairs with 1 HR without LOB with reciprocal pattern. Goal Time Frame: 4-6 Weeks Goal 6:: LTG: Pt. to have increased BLE strength by 1/2 grade of all effected musculature. Goal Time Frame: 4-6 Weeks - Rehabilitation Potential Physical Therapy Diagnosis: Pt. has signs and symptoms consistent with imbalance and frequent falls. Pt. has some signs of dizziness upon standing. Will have to recheck orthostatic again, did not seem distinctly + today with testing. She does have positive imbalance with directional changes and with alterations to vision and different surfaces. Rehabilitation Potential: Excellent - Anticipated Interventions Patient/Client Instruction: Educate patient on: Condition, Plan of Care, Risk Factors, Benefits of Fitness Program For the Purpose of:: To foster healthy habits, To improve decision making, To facilitate caregiver knowledge, To improve self management, To prevent re- injury, To improve ability to perform tasks related to life management, To improve tolerance to ADL's Therapeutic Exercise to Include: Strength training, Power training, Endurance training, Balance training, Postural training, Gait and locomotor training For the Purpose of:: To improve nutrient delivery to tissue, To increase oxygenation perfusion, To improve muscle performance and motor function, To improve ability to perform ADL's, To increase tolerance to activity/condition/position, To improve gait and locomotor functions, To improve health of tissue, To increase flexibility/ROM, To improve endurance Thank you for the opportunity to evaluate your patient. For Medicare and Medicare HMO plans, please review the plan of care and approve it. It will need to be FAXED BACK to us at [phone] for Medicare purposes. For Medicare only, by signing this I certify the plan of care. Please let me know if there are questions or concerns regarding this plan of care. Physician Signature: Date:
== END 2022-12-04 19:00 | disposition home or self-care (01) ==
LOC: PT 13:30
PROVIDERS: PCP Family Medicine Geriatric Medicine; Referring Provider Family Medicine Geriatric Medicine; Visit Provider Family Medicine Geriatric Medicine
DX: R29.6 Repeated falls (principal); R26.9 Unspecified abnormalities of gait and mobility
CPT/HCPCS: 97110; 97161

== ENCOUNTER 2023-02-04 19:15 | Emergency (ER) | payer MEDICARE, SELFPAY ==
[2023-02-04 19:18] VITALS: BP 145/90; PULSE 72; RESP 15; TEMP 36.2; O2SAT 95; BMI 29.7
--- NOTE | 2023-02-04 19:29 | EKG12_ITS ---
Test Reason : DYSRHYTHMIA Blood Pressure : / mmHG Vent. Rate : 069 BPM Atrial Rate : 069 BPM P-R Int : 168 ms QRS Dur : 080 ms QT Int : 396 ms P-R-T Axes : 044 -22 026 degrees QTc Int : 424 ms Normal sinus rhythm Normal ECG Confirmed by LILIA DYE, EUGENE ([id number]), associate entertainment editor TERRELL CHARLES ([id number]) on 02/06/2023 9:54:29 AM Referred By: VITA Confirmed By:EUGENE RODRIGUES MD
[2023-02-04 19:31] VITALS: O2SAT 94
--- NOTE | 2023-02-04 20:10 | EDS_ITS ---
HPI History of Present Illness Chief Complaint: Shortness of Breath Narrative Narrative: 87-year-old female presenting with cough and shortness of breath. She states she had some family in last week and they had a cough. She developed a cough as well. She states she feels like she started to clear it up, but also is still coughing. Denies fever, chills, body aches. Says some generalized weakness. No nausea or vomiting. Patient does admit to some chest tightness which has had intermittently over the last 6 months. She states that this comes and goes. It lasts a short duration. She states she was seen by the heart group last week with similar complaints and told she needed a follow-up CTA to look at her thoracic aortic aneurysm. She was given medication to take prior to the CTA because she is allergic to the contrast dye. She states she gets facial swelling, hives, shortness of breath. Patient not currently having any chest tightness. [facility] Medical History Anxiety Breast cancer Essential hypertension Fatty liver GERD (gastroesophageal reflux disease) CATHERINE (obstructive sleep apnea) Thoracic aortic aneurysm without rupture Home Medications cholecalciferol (vitamin D3) 125 mcg (5,000 unit) tablet 125 mcg PO DAILY 01/29/22 [History Last Taken Unknown] citalopram 20 mg tablet 20 mg PO DAILY 01/29/22 [History Last Taken Unknown] aspirin 81 mg tablet,delayed release (Adult Low Dose Aspirin) 81 mg PO DAILY 01/30/22 [History Last Taken Unknown] milk thistle 150 mg capsule 150 mg PO BID 01/30/22 [History Last Taken Unknown] pantoprazole 40 mg tablet,delayed release 40 mg PO DAILY 01/30/22 [History Last Taken Unknown] diphenhydramine HCl 25 mg capsule (Benadryl) 50 mg PO ONCE PRN IV contrast allergy #2 caps 01/28/23 [Rx Last Taken Unknown] prednisone 50 mg tablet 50 mg PO ONCE #3 tabs 01/28/23 [Rx Last Taken Unknown] Allergy/AdvReac Type Severity Reaction Status Date / Time terazosin [From Hytrin] Allergy Severe Face Verified 02/04/23 19:22 swelling iodine Allergy face Verified 02/04/23 19:22 swelling after scan acetaminophen AdvReac Severe Nightmares Verified 02/04/23 19:22 [From Darvocet-N 100] propoxyphene AdvReac Severe Nightmares Verified 02/04/23 19:22 [From Darvocet-N 100] codeine AdvReac Unknown tight Verified 02/04/23 19:22 band around head and SOB gabapentin [From Neurontin] AdvReac Unknown Mental Verified 02/04/23 19:22 status change hydrocodone [From Vicodin] AdvReac Unknown Nightmares Verified 02/04/23 19:22 zolpidem [From Ambien] AdvReac Unknown Hallucinati Verified 02/04/23 19:22 ons Family History Father Myocardial infarction CVA (cerebral vascular accident) Surgical History History of abdominal hysterectomy History of appendectomy History of laparoscopic cholecystectomy History of partial mastectomy of right breast Social History Smoking Status: Never smoker alcohol intake: never substance use type: does not use ROS ROS ED Review of Systems ROS Unobtainable: Denies due to encephalopathy Constitutional Constitutional ED: Denies chills or fever(s) Eyes Eyes: Denies blurry vision or change in vision ENT ENT ED: Denies rhinorrhea or sore throat Cardiovascular Cardiovascular: Reports chest pain Respiratory/Chest Respiratory/Chest: Reports cough and dyspnea Gastrointestinal Gastrointestinal: Denies abdominal pain, nausea or vomiting Genitourinary Genitourinary ED: Denies dysuria or hematuria Musculoskeletal Musculoskeletal: Denies arthralgias or back pain Integumentary Denies abscess Neurologic Neurologic: Denies headache(s) or paresthesias Psychiatric Psychiatric: Reports anxiety; Denies depression, suicidal ideation or suicidal thoughts EXAM Physical Exam Const Vital Signs: 02/04/23 19:18 02/04/23 19:31 02/04/23 19:33 Temperature 97.2 F L Temperature Source Temporal Pulse Rate 72 Respiratory Rate 15 Respiratory Effort Normal Non-Labored Respiratory Depth Normal Respiratory Pattern Normal Blood Pressure 145/90 H Blood Pressure Mean 108 Pulse Ox 95 Oxygen Delivery Method Room Air Room Air Room Air 02/04/23 21:17 Temperature Temperature Source Pulse Rate 73 Respiratory Rate 16 Respiratory Effort Respiratory Depth Respiratory Pattern Blood Pressure 147/78 H Blood Pressure Mean 101 Pulse Ox 97 Oxygen Delivery Method Room Air Positive well nourished General Appearance ED: NAD HEENT Reports moist mucous membranes Eyes PERRL and EOMs intact bilaterally Neck no lymphadenopathy Resp normal respiratory effort and clear to auscultation bilaterally Auscultation: Negative for rales, rhonchi or wheezes Cardio regular rate and regular rhythm GI non-tender Extremity normal to inspection General Extremety ED: Negative for edema General Extremity: Negative for edema Neuro oriented x3 and CN's II-XII intact bilaterally Sensorium / Orientation: alert Motor Exam: strength 5/5 throughout Psych mental status grossly normal Skin no wounds MDM MDM MDM Narrative Medical decision making narrative: 77-year-old female presenting with chest tightness which has been intermittent for 6 months with a history of thoracic aortic aneurysm. She also states she has been having a cough of this week after having visitors come to her house that had a cough. No fevers or chills. Differential includes ACS, CHF, thoracic aortic dissection, PE, pneumonia, viral syndrome. I do not suspect pneumothorax given the patient has equal symmetric breath sounds and chest wall rise. She is not hypoxic. She not having active chest pain currently. Patient well-appearing. Vital signs are stable and she is afebrile. CBC to assess white blood cell count, hemoglobin, platelets, differential. BMP to assess for renal function, electrolytes, glucose, anion gap. High-sensitivity opponent, EKG to look for cardiac source. Chest x-ray to rule out pneumonia, CHF. EKG on my interpretation shows normal sinus rhythm with a ventricular rate of 69 bpm without sign of ischemic change or ectopy. Chest x-ray on my interpretation shows no acute cardiopulmonary process. Radiologist interprets this and agrees. CBC and BMP are unremarkable. Initial high-sensitivity troponin is 11. BNP slightly elevated 109. Delta troponin is 12. There is no significant interval change. Given her dissection and chest pain I did obtain a CTA of the chest abdomen pelvis and this does not show anything acute such as PE, dissection, pneumonia. Patient was ambulated in the hallway and pulse ox maintained at 90% at the lowest. She tolerated this well. At this point I feel she is stable for discharge home. Patient given return precautions. Impression: 1. Dyspnea 2. Chest pain 3. History of thoracic arctic aneurysm 4. Generalized weakness Lab Data Attestation: I reviewed the patient's lab results. Labs: Laboratory Results - last 24 hr 02/04/23 02/04/23 02/04/23 20:00 20:00 20:00 WBC 10.9 RBC 4.31 Hgb 13.3 Hct 40.2 MCV 93.3 MCH 30.9 MCHC 33.1 RDW Std Deviation 46.7 H RDW Coeff of Jeffrey 13.6 Plt Count 206 MPV 10.0 Immature Gran % (Auto) 0.600 Neut % (Auto) 63.5 Lymph % (Auto) 24.7 [place] % (Auto) 9.0 Eos % (Auto) 1.6 Baso % (Auto) 0.6 Absolute Neuts (auto) 6.9 Absolute Lymphs (auto) 2.68 Nucleated RBC % 0 Sodium 135 L Potassium 3.8 Chloride 97 L Carbon Dioxide 31.0 Anion Gap 7 BUN 22 H Creatinine 0.99 Estim Creat Clear Calc 37.64 Est GFR (MDRD) Af Amer 70 Est GFR (MDRD) Non-Af 58 L BUN/Creatinine Ratio 22.2 H Glucose 135 H Calcium 8.9 Troponin I High Sens 11 B-Natriuretic Peptide 109.4 H 02/04/23 22:15 WBC RBC Hgb Hct MCV MCH MCHC RDW Std Deviation RDW Coeff of Jeffrey Plt Count MPV Immature Gran % (Auto) Neut % (Auto) Lymph % (Auto) [place] % (Auto) Eos % (Auto) Baso % (Auto) Absolute Neuts (auto) Absolute Lymphs (auto) Nucleated RBC % Sodium Potassium Chloride Carbon Dioxide Anion Gap BUN Creatinine Estim Creat Clear Calc Est GFR (MDRD) Af Amer Est GFR (MDRD) Non-Af BUN/Creatinine Ratio Glucose Calcium Troponin I High Sens 12 B-Natriuretic Peptide Radiography Diagnostic Testing: Clinical Impression(s) from Imaging Studies Chest X-Ray 02/04/23 20:39 IMPRESSION: ASHD and minor right basilar atelectasis. Electronically Signed: Terrence Arreguin MD at 21:04 EDT , Chest/Abdomen/Pelvis CTA 02/04/23 21:42 IMPRESSION: ASHD and borderline aneurysmal dilatation of the proximal ascending aorta. No periaortic leak or dissection. Chronic interstitial and emphysematous changes with groundglass opacities in the lower lobes. Atherosclerotic disease but no evidence for abdominal aortic aneurysm periaortic leak or dissection.. Diverticular disease of the descending and sigmoid colon without evidence for acute diverticulitis status post cholecystectomy and hysterectomy Electronically Signed: Terrence Arreguin MD at 22:25 EDT Reading Location ID and State: [facility] / [place] , Service support , Discharge Plan Triage Chief Complaint: Shortness of Breath ED Provider: Paddy Auguste Dx/Rx/DC Orders Prescriptions: No Action pantoprazole 40 mg tablet,delayed release (DR/EC) 40 mg PO DAILY aspirin [Adult Low Dose Aspirin] 81 mg tablet,delayed release (DR/EC) 81 mg PO DAILY milk thistle 150 mg capsule 150 mg PO BID Rx Instructions: give with meal/snack citalopram 20 mg tablet 20 mg PO DAILY cholecalciferol (vitamin D3) 125 mcg (5,000 unit) tablet 125 mcg PO DAILY prednisone 50 mg tablet 50 mg PO ONCE Qty: 3 0RF Rx Instructions: 50mg PO every 6 hours x 3 doses at 13 hours, 7 hours, and 1 hour prior to contrast administration diphenhydramine HCl [Benadryl] 25 mg capsule 50 mg PO ONCE PRN (Reason: IV contrast allergy) Qty: 2 0RF Rx Instructions: 50mg PO 1 hour prior to contrast administration Primary Care Provider: North Cuellar Chi Referrals: North Cuellar Chi, MD [Primary Care Provider] -
[2023-02-04 20:11] LABS: Absolute Lymphocyte Count 2.68 X10^3/uL (0.83-4.51); Absolute Neutrophil Count 6.9 X10^3/uL (2.0-7.7); Basophil# 0.06 X10^3/uL; Basophil% 0.6 % (0-1); Eosinophil# 0.17 X10^3/uL; Eosinophils% 1.6 % (0-5); Hematocrit 40.2 % (37-47); Hemoglobin 13.3 g/dL (12.0-15.0); Lymphocyte # 2.68 X10^3/ul (0.83-4.51); Lymphocyte % 24.7 % (19-41); Mean Corp Hgb Conc 33.1 g/dL (32-36); Mean Corpuscular Hgb 30.9 pg (27.0-32.0); Mean Corpuscular Volume 93.3 fL (81-99); Monocyte# 0.98 X10^3/uL; NRBC Flagged by Analyzer 0 % (0-5); Neutrophil % 63.5 % (47-70); Platelet Count 206 K/mm3 (150-450); RBC Distribution Width CV 13.6 % (11.6-14.6); RBC Distribution Width SD 46.7 fl (35.1-43.9); Red Blood Count 4.31 M/mm3 (4.2-5.4); White Blood Count 10.9 K/mm3 (4.4-11.0)
[2023-02-04] MEDS: DiphenhydrAMINE 50 MG/ML Syringe IV (20:23)
[2023-02-04 20:33] LABS: BNP,B-Type NATRIURETIC PEPTIDE 109.4 pg/mL (0-100)
[2023-02-04 20:35] LABS: Anion Gap 7 (5-15); BUN 22 mg/dL (7-18); BUN/Creat Ratio 22.2 RATIO (10-20); Calcium,Total 8.9 mg/dL (8.5-10.1); Chloride 97 mmol/L (98-107); Creatinine, Serum 0.99 mg/dL (0.55-1.02); EST Glomerular Filtration Rate 58 mL/min (>60); Est Glom Filt Rate - Afr Amer 70 mL/min (>60); Estimated Creatinine Clearance 37.64 ml/min; Glucose 135 mg/dL (74-106); Potassium 3.8 mmol/L (3.5-5.1); Sodium Level 135 mmol/L (136-145); Troponin-I HS (w/2H Reflex) 11 pg/mL (3.0-54.0)
--- NOTE | 2023-02-04 20:39 | RAD_ITS ---
STUDY: X-RAY CHEST REASON FOR EXAM: Female, 77 years old. chest pain TECHNIQUE: AP portable COMPARISON: None. FINDINGS: Elevated right hemidiaphragm and minor basilar atelectasis. There is no demonstrated pleural abnormality. Heart is mildly enlarged.. Normal mediastinum and renee. Normal visualized pulmonary arteries. Mildly calcified aortic arch and descending thoracic aorta. Dorsal spine and shoulders demonstrate degenerative change. Normal visualized ribs, and clavicles. Right breast has been removed surgically. There is no demonstrated abnormality of the visualized soft tissue structures of the upper abdomen. RAD/Chest 1 View (Portable) IMPRESSION: ASHD and minor right basilar atelectasis. Electronically Signed: Terrence Arreguin MD at 21:04 EDT ,
[2023-02-04 21:17] VITALS: BP 147/78; PULSE 73; RESP 16; O2SAT 97
--- NOTE | 2023-02-04 21:42 | CT_ITS ---
INDICATION: Thoracic aortic aneurysm EXAMINATION: CTA CHEST, ABDOMEN AND PELVIS WITH CONTRAST - TECHNIQUE: A CTA of the chest, abdomen, and pelvis is obtained with sagittal and coronal reconstructed MIP views. Three-dimensional surface rendered sequence of the thoracic and abdominal aorta was obtained. A radiation dose optimization technique was used for this scan. mL of Isovue-[id number]. Oral contrast: None. COMPARISON: None. FINDINGS: CT CHEST: THORACIC AORTA: Atherosclerotic changes of the aorta which is upper limits of normal in size for age measuring approximately 4 cm. No periaortic leak or dissection. ABDOMINAL AORTA: No aneurysm or dissection. Diffuse calcific plaquing of the abdominal aorta and bilateral common iliac arteries. LUNGS: Mild diffuse interstitial thickening in the lower lobes with emphysematous changes and groundglass opacities.. No effusions or pneumothorax. MEDIASTINUM: The thyroid gland is normal. No mediastinal or hilar adenopathy. HEART: Heart is normal size. No pericardial effusion. No CAD. CT ABDOMEN AND PELVIS: LIVER: The liver enhances homogeneously. No masses identified. GALLBLADDER: The CBD is normal. Postsurgical change status post cholecystectomy SPLEEN: Normal. PANCREAS: No masses or inflammation. ADRENAL GLANDS: Normal. KIDNEYS AND URETERS: The kidneys both enhance appropriately. There are normal size and shape. No hydronephrosis or nephrolithiasis. No renal masses or cysts. STOMACH: Normal. SMALL BOWEL: No abnormal distention of the small bowel. MESENTERY: No mesenteric inflammation. No ascites. COLON: Diffuse diverticular disease of the descending and sigmoid colon without evidence for acute diverticulitis. The colon otherwise is normal. There is a large fatty ileocecal valve. APPENDIX: No evidence for acute appendicitis IVC: Normal. RETROPERITONEUM: No retroperitoneal lymphadenopathy. PELVIC STRUCTURES: Normal bladder. Uterus not visualized status post hysterectomy SOFT TISSUES ABDOMEN: The anterior abdominal wall is normal. SOFT TISSUE CHEST: The extrathoracic soft tissues are normal. BONES: Thoracic and lumbar spines demonstrate degenerative changes. Grade 1 spondylolisthesis at L5-S1 No fractures or significant degenerative disease. CT/CTA Chst, Abd, Pel W and/or WO IMPRESSION: ASHD and borderline aneurysmal dilatation of the proximal ascending aorta. No periaortic leak or dissection. Chronic interstitial and emphysematous changes with groundglass opacities in the lower lobes. Atherosclerotic disease but no evidence for abdominal aortic aneurysm periaortic leak or dissection.. 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
[2023-02-04 22:06] LABS: Reflex Troponin-HS? (from REC) Y
[2023-02-04 22:41] LABS: Troponin-I HS 12 pg/mL (3.0-54.0)
[2023-02-04 23:14] VITALS: O2SAT 93
== END 2023-02-05 00:04 | disposition home or self-care (01) ==
PROVIDERS: Emergency Provider Student in an Organized Health Care Education/Training Program; PCP Family Medicine Geriatric Medicine; Visit Provider Student in an Organized Health Care Education/Training Program
DX: R06.00 Dyspnea, unspecified (principal); I71.21 Aneurysm of the ascending aorta, without rupture; R07.9 Chest pain, unspecified; R53.1 Weakness; G47.33 Obstructive sleep apnea (adult) (pediatric); K21.9 Gastro-esophageal reflux disease without esophagitis; Z91.041 Radiographic dye allergy status; Z79.82 Long term (current) use of aspirin; Z79.899 Other long term (current) drug therapy
CPT/HCPCS: 71045; 71275; 74174; 80048; 83880; 84484; 85025; 93005; 96374; 96375; 99284; Q9967; A4216

== ENCOUNTER → 2023-02-07 | Outpatient (CLI) | payer MEDICARE, SELFPAY | END | disposition home or self-care (01) | LOC: PSN 11:56 | PROVIDERS: PCP Family Medicine Geriatric Medicine; Referring Provider Family Medicine Geriatric Medicine; Visit Provider Family Medicine Geriatric Medicine | DX: R68.83 Chills (without fever) (principal) | CPT/HCPCS: 87804; 87807; C9803 ==

== ENCOUNTER 2023-02-27 14:22 | Observation (INO) | payer MEDICARE, SELFPAY ==
[2023-02-27] VITALS (12 sets, daily range): BP systolic 101–160; BP diastolic 77–106; PULSE 78–103; RESP 12–19; TEMP 36.1–36.7; O2SAT 91–97; BMI 29.2
--- NOTE | 2023-02-27 14:47 | EKG12_ITS ---
Test Reason : POSS STROKE Blood Pressure : / mmHG Vent. Rate : 082 BPM Atrial Rate : 082 BPM P-R Int : 172 ms QRS Dur : 078 ms QT Int : 370 ms P-R-T Axes : 044 -28 038 degrees QTc Int : 432 ms Normal sinus rhythm Cannot rule out Anterior infarct , age undetermined Abnormal ECG Confirmed by LILIA DYE, EUGENE ([id number]), metropolitan editor TERRELL CHARLES ([id number]) on 03/03/2023 1:29:36 PM Referred By: Confirmed By:EUGENE RODRIGUES MD
--- NOTE | 2023-02-27 14:47 | CT_ITS ---
STUDY: CT HEAD STROKE PROTOCOL W/O CONTRAST INJECTION REASON FOR EXAM: Female, 77 years old. Neuro deficit, acute, stroke suspected RADIATION DOSAGE (If Supplied By Facility): CTDIvol = ( 47.06 ) mGy, DLP = ( 872.68 ) mGycm TECHNIQUE: Transaxial CT imaging of the brain was performed without administration of intravenous contrast material. Individualized dose optimization techniques were used for this CT. COMPARISON: No relevant priors. FINDINGS: Normal soft tissue structures. Normal calvarium. There is mild cerebral atrophy with widening of the extra-axial spaces and ventricular dilatation. There are areas of decreased attenuation within the white matter tracts of the supratentorial brain, consistent with microvascular disease changes. 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 Normal brainstem. Normal cerebellum. There is no intracranial hemorrhage. There are no findings of an acute ischemic infarction. Atherosclerotic calcific plaques of the vertebral arteries and cavernous portions of the internal carotid arteries bilaterally. 1.1 cm polyp or retention cyst in the anterior medial aspect of the right maxillary sinus. ASPECT score: 8 CT/STROKE Brain/Head without Cont IMPRESSION: Chronic involutional changes of the brain. N.B. : The above Results were Read Back by Alexis Lee MD to Aydin Mcbride and understanding confirmed on 02/27/2023 15:24:20 (ET). Electronically Signed: Alexis Lee MD at 15:25 EDT ,
[2023-02-27] MEDS: Silver Nitrate (BKC) 1 EACH TOPICAL (14:55)
[2023-02-27] MEDS: DiphenhydrAMINE 50 MG/ML Syringe 25 MG IV (14:59)
--- NOTE | 2023-02-27 15:00 | ED.VIS.STROK ---
HPI History of Present Illness Chief Complaint: Nosebleed Informant: patient Narrative Narrative: Patient presents for a nosebleed that started spontaneously about 45 minutes ago from the right side, she states however it has also been coming down the back of her throat out of her mouth, and out of the left side but mainly out the right. Never had this before. She takes baby aspirin every day and she took a couple doses of Anacin in the last 24 hours because she had a sudden onset headache that started yesterday when she was in her walk-in closet somewhere around 4:00 PM, the sudden onset headache was associated with feeling like she was going to pass out, a transient visual field deficit where she states it felt like someone was pulling a curtain down over my eyes, and vertigo. She states she has also been having some trouble speaking, and thinks that is more now/today. She has been having the vertigo, headache, and feeling off balance whenever she tries to walk ever since then. She is evaluated by myself here at around 1445. Patient states that she has vertigo almost every day ever since she fell and hit her head 2 years ago or so, but the headache, near syncope, speaking trouble, and visual disturbance are all new, although the occurred mostly yesterday. Takes no anticoagulants. [facility] Medical History Anxiety Breast cancer Essential hypertension Fatty liver GERD (gastroesophageal reflux disease) CATHERINE (obstructive sleep apnea) Thoracic aortic aneurysm without rupture Home Medications cholecalciferol (vitamin D3) 125 mcg (5,000 unit) tablet 125 mcg PO DAILY 01/29/22 [History Last Taken 02/27/23] citalopram 20 mg tablet 20 mg PO DAILY 01/29/22 [History Last Taken 02/27/23] aspirin 81 mg tablet,delayed release (Adult Low Dose Aspirin) 81 mg PO DAILY 01/30/22 [History Last Taken 02/27/23] pantoprazole 40 mg tablet,delayed release 40 mg PO DAILY 01/30/22 [History Last Taken 02/26/23] Allergy/AdvReac Type Severity Reaction Status Date / Time terazosin [From Hytrin] Allergy Severe Face Verified 02/04/23 19:22 swelling iodine Allergy face Verified 02/04/23 19:22 swelling after scan acetaminophen AdvReac Severe Nightmares Verified 02/04/23 19:22 [From Darvocet-N 100] propoxyphene AdvReac Severe Nightmares Verified 02/04/23 19:22 [From Darvocet-N 100] codeine AdvReac Unknown tight Verified 02/04/23 19:22 band around head and SOB gabapentin [From Neurontin] AdvReac Unknown Mental Verified 02/04/23 19:22 status change hydrocodone [From Vicodin] AdvReac Unknown Nightmares Verified 02/04/23 19:22 zolpidem [From Ambien] AdvReac Unknown Hallucinati Verified 02/04/23 19:22 ons Family History Father Myocardial infarction CVA (cerebral vascular accident) Surgical History History of abdominal hysterectomy History of appendectomy History of laparoscopic cholecystectomy History of partial mastectomy of right breast Social History Smoking Status: Never smoker alcohol intake: never substance use type: does not use ROS ROS ED Constitutional Constitutional ED: Denies chills or fever(s) Eyes Eyes: Reports as per HPI and change in vision; Denies diplopia ENT ENT ED: Reports ear pain bilateral, epistaxis and tinnitus; Denies sore throat Cardiovascular Cardiovascular: Denies chest pain or palpitations Respiratory/Chest Respiratory/Chest: Denies cough or dyspnea Gastrointestinal Gastrointestinal: Denies abdominal pain, diarrhea, nausea or vomiting Genitourinary Genitourinary ED: Denies dysuria or hematuria Musculoskeletal Musculoskeletal: Denies back pain or neck pain Integumentary Denies abscess or rash Neurologic Neurologic: Reports abnormal gait, headache(s), lack of coordination and vertigo; Denies paresthesias, syncope or weakness Psychiatric Psychiatric: Denies anxiety or suicidal thoughts EXAM Physical Exam Const Vital Signs: 02/27/23 14:23 02/27/23 14:47 02/27/23 15:17 Temperature 96.9 F L Temperature Source Temporal Pulse Rate 103 H 84 78 Respiratory Rate 18 16 17 Blood Pressure 134/104 H 101/77 101/77 Blood Pressure Mean 114 85 85 Pulse Ox 97 97 95 Oxygen Delivery Method Room Air Room Air Room Air 02/27/23 15:30 02/27/23 16:00 Temperature Temperature Source Pulse Rate 88 89 Respiratory Rate 14 12 Blood Pressure 150/101 H 160/106 H Blood Pressure Mean 117 124 Pulse Ox 95 94 Oxygen Delivery Method Room Air Positive well nourished and well developed General Appearance ED: well developed and NAD HEENT Reports moist mucous membranes HEENT Narrative: Right temporal artery nontender, no palpable cords or abnormality. normocephalic and atraumatic Nose: other Other Details: Right-sided epistaxis active, mild-moderate, blood in posterior oropharynx, patient occasionally spits up some blood and occasionally pulls a long clot out of her nose. Eyes PERRL and EOMs intact bilaterally Neck full ROM, no lymphadenopathy and supple Chest Wall inspection of chest normal and palpation of chest normal Resp normal respiratory effort and clear to auscultation bilaterally Cardio regular rate, regular rhythm and no murmurs GI non-tender and non-distended Auscultation: normoactive bowel sounds Palpation: soft Back/Spine no CVA tenderness General Back: other FROM Extremity normal to inspection General Extremety ED: Negative for edema, pulses abnormal or tenderness General Extremity: Negative for edema or pulses abnormal Neuro oriented x3, CN's II-XII intact bilaterally and no sensory deficits noted Sensorium / Orientation: awake and alert Motor Exam: strength 5/5 throughout Psych Mood & Affect: anxious Skin no rashes or lesions noted and no wounds NIHSS NIHSS Initial: 1a Level of Consciousness: 0 1b LOC Questions (Score 2 if aphasic/stupor): 0 1c LOC Commands (Only score 1st attempt): 0 2 Best Gaze (If aphasic, use reflexive mvmts.): 0 3 Visual: 0 4 Facial Palsy: 0 5 Motor Arm Right (UN = amputation/fusion): 0 5 Motor Arm Left: 0 6 Motor Leg Right: 0 6 Motor Leg Left: 0 7 Limb ataxia (Only + if out of proportion): 0 8 Sensory (Aphasia/stupor=0 or 1, coma=2): 0 9 Best Language: 0 10 Dysarthria (mute, coma=2, intubated=UN): 0 11 Extinction and Inattention (only scored if +): 0 Total Score: 0 MDM MDM MDM Narrative Medical decision making narrative: This patient presented for nosebleed and did not tell anyone else about her other symptoms until my encounter/evaluation. I am concerned about the symptoms she had at the onset of all of this yesterday, with sudden onset headache, near syncope, visual field disturbance, and vertigo, with her age certainly this could be central/vascular in etiology. However then she starts talking about how her vertigo has been chronic and has it almost daily, suggesting a peripheral etiology. Basically we were trying to evaluate and control her active epistaxis, the patient was very anxious, which I think may be the etiology of her speech issues, but difficult for the patient and her to tell, agreeing that she has anxiety. After holding pressure on her nose and still spitting blood out of her mouth, I was about to pack her nose, when she blew the blood and clots out, suddenly it seemed like there was no more bleeding, I was able to see a small punctate area that appeared to be the source at the septum on the right without signs of perforation, I obtained a silver nitrate stick and was able to cauterize this with no complication or recurrent bleeding. At this point I was able to finally get the patient to tell me the time of the onset yesterday which is about 23 hours prior to the present time so I called a stroke alert and had the advanced imaging obtained, it is noted that she has a reaction to iodine but it does not sound anaphylactic, so we pretreated her with Benadryl and Solu-Medrol but obtained the scan including CT angiography emergently. She is not a tPA candidate due to timing. CT and CTA negative for any acute LVO or bleed. The patient had no recurrent epistaxis. After discussing with stroke neurology, he is in agreement that the patient should be admitted for observation on telemetry given the near syncope and unusual symptoms. I did obtain an ESR, it is negative ruling out acute giant cell arteritis as well. Also of note, patient states she was diagnosed with fatty liver disease and her doctor was concerned that she is headed toward cirrhosis although she has not been diagnosed with that; her coags here are normal, suggesting that this is unrelated to her nosebleed today. History & Record Review Discussion w/independent historian: Patient and Family () Additional record(s) reviewed:: Prior labs Lab Data Attestation: I reviewed the patient's lab results. Labs: Laboratory Results - last 24 hr 06/05/1402/27/23 02/27/23 14:53 15:00 15:00 WBC 6.5 RBC 4.32 Hgb 13.2 Hct 41.0 MCV 94.9 MCH 30.6 MCHC 32.2 RDW Std Deviation 48.3 H RDW Coeff of Jeffrey 13.9 Plt Count 201 MPV 10.2 Immature Gran % (Auto) 0.300 Neut % (Auto) 57.8 Lymph % (Auto) 30.3 Dickey % (Auto) 9.9 Eos % (Auto) 1.1 Baso % (Auto) 0.6 Absolute Neuts (auto) 3.7 Absolute Lymphs (auto) 1.96 Nucleated RBC % 0 ESR 15 PT 13.2 INR 1.0 APTT 23.6 L Sodium Potassium Chloride Carbon Dioxide Anion Gap BUN Creatinine Estim Creat Clear Calc Est GFR (MDRD) Af Amer Est GFR (MDRD) Non-Af BUN/Creatinine Ratio Glucose Calcium Troponin I High Sens POC Glucose 125 H 02/27/23 15:00 WBC RBC Hgb Hct MCV MCH MCHC RDW Std Deviation RDW Coeff of Jeffrey Plt Count MPV Immature Gran % (Auto) Neut % (Auto) Lymph % (Auto) Dickey % (Auto) Eos % (Auto) Baso % (Auto) Absolute Neuts (auto) Absolute Lymphs (auto) Nucleated RBC % ESR PT INR APTT Sodium 138 Potassium 3.7 Chloride 102 Carbon Dioxide 30.0 Anion Gap 6 BUN 21 H Creatinine 0.99 Estim Creat Clear Calc 37.64 Est GFR (MDRD) Af Amer 70 Est GFR (MDRD) Non-Af 58 L BUN/Creatinine Ratio 21.3 H Glucose 129 H Calcium 9.3 Troponin I High Sens 11 POC Glucose Radiography Diagnostic Testing: Clinical Impression(s) from Imaging Studies Brain CT 02/27/23 14:47 IMPRESSION: Chronic involutional changes of the brain. N.B. : The above Results were Read Back by Alexis Lee MD to Aydin Mcbride and understanding confirmed on 02/27/2023 15:24:20 (ET). Electronically Signed: Alexis Lee MD at 15:25 EDT , ADDENDUM: 02/27/23 1532 IMPRESSION: Chronic involutional changes of the brain. N.B. : The above Results were Read Back by Alexis Lee MD to Aydin Mcbride and understanding confirmed on 02/27/2023 15:24:20 (ET). Electronically Signed: Alexis Lee MD at 15:25 EDT , Head/Neck CTA 02/27/23 15:12 IMPRESSION: Atherosclerotic plaque formation at the origin of the right and left internal carotid arteries causing less than 50% stenosis. N.B. : The above Results were Read Back by Alexis Lee MD to Aydin Mcbride and understanding confirmed on 02/27/2023 15:30:59 (ET). Electronically Signed: Alexis Lee MD at 15:32 EDT , ADDENDUM: 02/27/23 1539 IMPRESSION: Atherosclerotic plaque formation at the origin of the right and left internal carotid arteries causing less than 50% stenosis. N.B. : The above Results were Read Back by Alexis Lee MD to Aydin Mcbride and understanding confirmed on 02/27/2023 15:30:59 (ET). Electronically Signed: Alexis Lee MD at 15:32 EDT , My interpretation of the CT agrees with that of the radiologist. Rhythm Strip Rhythm Strip: Sinus Rhythm Rate: 99 Ectopy: None EKG Initial EKG: Attestation: I personally reviewed and interpreted this EKG as follows: Interpretation: Sinus Rhythm and No Acute Injury Pattern Management Discussion w/another healthcare provider: Hospitalist, Regulatory Affairs Spec (stroke neurology, [facility] Dr. Fulton) and Radiologist Stroke Documentation Questions Stroke Team Activated: Yes Was Patient considered for Endovascular Intervention?: No-CTA negative, determined not to be an endovascular candidate IV Thrombolytic Administered: No (out of time window) Procedures Other Procedures Procedure(s): Epistaxis care, see above for details Critical Care Time Critical Care Time: Yes Critical care time (excluding procedures): 30-74 minutes (45 min, not including procedure time), Including time spent:, Discussing w/Patient &/or Family/Land Conservation Specialist, Discussing w/Consultants, Arranging Admission or Transfer and Performing Direct Patient Care at Bedside Discharge Plan Dx/Rx/DC Orders Clinical Impression: Vertigo, Near syncope, Transient vision disturbance, bilateral, Acute anterior epistaxis Disposition Disposition: Acute Care Hospital [facility]
[2023-02-27 15:10] LABS: Absolute Lymphocyte Count 1.96 X10^3/uL (0.83-4.51); Absolute Neutrophil Count 3.7 X10^3/uL (2.0-7.7); Basophil# 0.04 X10^3/uL; Basophil% 0.6 % (0-1); Eosinophil# 0.07 X10^3/uL; Eosinophils% 1.1 % (0-5); Hemoglobin 13.2 g/dL (12.0-15.0); Lymphocyte # 1.96 X10^3/ul (0.83-4.51); Lymphocyte % 30.3 % (19-41); Mean Corp Hgb Conc 32.2 g/dL (32-36); Mean Corpuscular Hgb 30.6 pg (27.0-32.0); Mean Corpuscular Volume 94.9 fL (81-99); Mean Platelet Vol. 10.2 fl (6.2-12.0); Monocyte# 0.64 X10^3/uL; Monocyte% 9.9 % (0-10); NRBC Flagged by Analyzer 0 % (0-5); Neutrophil # 3.73 X10^3/uL (2.7-7.7); Neutrophil % 57.8 % (47-70); Platelet Count 201 K/mm3 (150-450); RBC Distribution Width CV 13.9 % (11.6-14.6); RBC Distribution Width SD 48.3 fl (35.1-43.9); Red Blood Count 4.32 M/mm3 (4.2-5.4); White Blood Count 6.5 K/mm3 (4.4-11.0)
[2023-02-27 15:11] LABS: Bedside Glucose 125 mg/dL (74-106)
--- NOTE | 2023-02-27 15:12 | CT_ITS ---
STUDY: CTA HEAD AND NECK WITH CONTRAST REASON FOR EXAM: Female, 77 years old. Neuro deficit, acute, stroke suspected RADIATION DOSAGE (If Supplied By Facility): CTDIvol = ( 25.43 ) mGy, DLP = ( 935.71 ) mGycm TECHNIQUE: CT angiography was performed with a multi-detector CT scanner. Data acquisition was obtained from the skull base through the vertex following intravenous administration of IV 100mL [id number]-[id number]. MIP images were reconstructed from the axial data set. Post-processing of the angiographic images was performed, with multiplanar reformation and 3D reconstruction. Individualized dose optimization techniques were used for this CT. COMPARISON: No relevant priors. FINDINGS: Normal bilateral petrous carotid arteries. There is calcified plaque formation of the right cavernous carotid artery, without a cross-sectional luminal stenosis. There is calcified plaque formation of the left cavernous carotid artery, without a cross-sectional luminal stenosis. Normal right A1 segments of the anterior cerebral artery. Normal left A1 segments of the anterior cerebral artery. Normal intact anterior communicating artery (ACOM). Normal bilateral A2 segments of the anterior cerebral arteries. Normal right M1 and M2 segments of the middle cerebral arteries, with a normal M1 bifurcation. Nonstenotic plaque formation of the M2 segment of the left middle cerebral artery. Normal right posterior communicating artery (PCOM). Normal left posterior communicating artery (PCOM). Normal bilateral vertebral arteries. Normal basilar artery with a normal basilar bifurcation. The visualized bilateral superior cerebellar (SCA) arteries are normal. Normal bilateral P1, P2 and visualized P3 segments of the posterior cerebral arteries. There is no demonstrated aneurysm of the lummi of [place]. Small mucosal polyp or retention cyst in the anterior medial aspect of the right maxillary sinus. AORTIC ARCH: There is atherosclerotic calcific plaque formation of the aortic arch and great vessels arising from the aortic arch, without a hemodynamically significant stenosis. There is a bovine origin of the great vessels with a common origin of the brachiocephalic and left common carotid artery. Normal origin of the left subclavian artery. RIGHT CAROTID ARTERIES: Normal right common carotid artery (CCA). Normal right common carotid bulb. There is mild atherosclerotic plaque formation of the origin of the right internal carotid artery with less than 50% cross sectional diameter stenosis. Normal visualized cervical portion of the right internal carotid artery. Normal origin of the right external carotid artery (ECA). LEFT CAROTID ARTERIES: Normal left common carotid artery (CCA). Normal left common carotid bulb. There is mild atherosclerotic plaque formation of the origin of the left internal carotid artery with less than 50% cross sectional diameter stenosis. Normal visualized cervical portion of the left internal carotid artery. Normal origin of the left external carotid artery (ECA). VERTEBRAL ARTERIES: Normal bilateral vertebral arteries. CT/STROKE CTA Head AND Neck W/Con IMPRESSION: Atherosclerotic plaque formation at the origin of the right and left internal carotid arteries causing less than 50% stenosis. N.B. : The above Results were Read Back by Alexis Lee MD to Aydin Mcbride and understanding confirmed on 02/27/2023 15:30:59 (ET). Electronically Signed: Alexis Lee MD at 15:32 EDT ,
--- NOTE | 2023-02-27 15:16 | ED.RN ---
called [facility] when pt in room, their physician is on another line- will call ED when he is available.
[2023-02-27 15:18] LABS: Prothrombin Time (Protime)PT. 13.2 SECONDS (11.7-14.9)
[2023-02-27 15:19] LABS: Partial Thromboplast Time 23.6 Seconds (24.1-36.2)
[2023-02-27] MEDS: MethylPREDNISolone 125 MG/2 ML Vial IV (15:19)
--- NOTE | 2023-02-27 15:31 | CHAPLAIN ---
Type of Pastoral Visit ___ Initial Visit ___ Follow-up Visit ___ On-call Visit ___ General Patient Visit ___ Spiritual Assessment ___ Family Conference ___ Bereavement _x__ Rapid Response ___ Code Blue ___ Other (describe below) Pastoral Care Referral From ___ Patient ___ Family ___ Nurse ___ Physician ___ Loom Changeover Operator ___ Robotics Application Engineer _x__ Other (describe below) Sacrament/Intervention _x__ Active listening ___ Anointing ___ Yazidism ___ Bereavement ___ Communion ___ Kary exploration ___ ___ Life review _x__ Prayer ___ Reconciliation ___ Sacrament of Sick _x__ Supportive presence ___ Wedding ___ Other (describe below) Pastoral Comments responded to stroke alert; patient was taken to CT scan; pt and spouse have been seen before in the hospital; spouse is welcoming and asks for a prayer; presence and prayer given; offered water or to care for other needs of spouse
[2023-02-27 15:32] LABS: Anion Gap 6 (5-15); BUN 21 mg/dL (7-18); BUN/Creat Ratio 21.3 RATIO (10-20); Calcium,Total 9.3 mg/dL (8.5-10.1); Chloride 102 mmol/L (98-107); Creatinine, Serum 0.99 mg/dL (0.55-1.02); EST Glomerular Filtration Rate 58 mL/min (>60); Est Glom Filt Rate - Afr Amer 70 mL/min (>60); Estimated Creatinine Clearance 37.64 ml/min; Glucose 129 mg/dL (74-106); Potassium 3.7 mmol/L (3.5-5.1); Sodium Level 138 mmol/L (136-145); Troponin-I HS 11 pg/mL (3.0-54.0)
[2023-02-27 15:43] LABS: Erythrocyte Sedimentation Rate 15 mm/hr (0-30)
--- NOTE | 2023-02-27 17:03 | PCM.HP.STD ---
[facility] - General General Date of Admission: 02/27/23 Date of Service: 02/27/23 Chief Complaint: Headache dizziness and vertigo yesterday and took Anacin. Nosebleeding today. HPI Narrative REYES DUONG, is a 77 F came to ER today with spontaneous nosebleeding that started 45 minutes prior to ED arrival. She states she was initially from right nostril but then from both nostrils. She also felt like clotted blood in the back of throat and spitted out. She never had epistaxis. Yesterday, she had sudden onset of right-sided headache while she was walking to closet and felt dizzy lightheaded and vertigo. She felt like she is going to pass out but her held her in bed sit in the chair. She felt blurry vision/felt like someone pulling a curtain before her eyes but lasted very short time. She has intermittent history of headache in the past but this 1 was severe. She is not diagnosed with any chronic headache like migraine headache cluster headache or tension headache. She took 2 tablets of Anacin yesterday and then when she had similar headache today she took 2 more tablets today. She also felt more trouble speaking or thinking other words today. She she claims that she was off balance/disequilibrium and was held by . She denies any fall. History of vertigo almost every day after she fell and hit her head 2 years ago. She also has history of basal cell carcinoma of nose for which she had excision. In ED her vitals were all in acceptable range. Triage heart rate was 103/min. Stroke alert was called and patient was seen by [facility] teleneurologist. NIH stroke scale 1 for mild to moderate sensory loss of left side of face and left lower extremity. She is further admitted for stroke work-up. [facility] Medical History Anxiety Breast cancer Essential hypertension Fatty liver GERD (gastroesophageal reflux disease) CATHERINE (obstructive sleep apnea) Thoracic aortic aneurysm without rupture Home Medications cholecalciferol (vitamin D3) 125 mcg (5,000 unit) tablet 125 mcg PO DAILY 01/29/22 [History Last Taken 02/27/23] citalopram 20 mg tablet 20 mg PO DAILY 01/29/22 [History Last Taken 02/27/23] aspirin 81 mg tablet,delayed release (Adult Low Dose Aspirin) 81 mg PO DAILY 01/30/22 [History Last Taken 02/27/23] pantoprazole 40 mg tablet,delayed release 40 mg PO DAILY 01/30/22 [History Last Taken 02/26/23] Allergy/AdvReac Type Severity Reaction Status Date / Time terazosin [From Hytrin] Allergy Severe Face Verified 02/04/23 19:22 swelling iodine Allergy face Verified 02/04/23 19:22 swelling after scan acetaminophen AdvReac Severe Nightmares Verified 02/04/23 19:22 [From Darvocet-N 100] propoxyphene AdvReac Severe Nightmares Verified 02/04/23 19:22 [From Darvocet-N 100] codeine AdvReac Unknown tight Verified 02/04/23 19:22 band around head and SOB gabapentin [From Neurontin] AdvReac Unknown Mental Verified 02/04/23 19:22 status change hydrocodone [From Vicodin] AdvReac Unknown Nightmares Verified 02/04/23 19:22 zolpidem [From Ambien] AdvReac Unknown Hallucinati Verified 02/04/23 19:22 ons Family History Father Myocardial infarction CVA (cerebral vascular accident) Surgical History History of abdominal hysterectomy History of appendectomy History of laparoscopic cholecystectomy History of partial mastectomy of right breast Social History Smoking Status: Never smoker alcohol intake: never substance use type: does not use ROS ROS Narrative Constitutional: Reports fatigue and weakness. No fever. HEENT: Epistaxes as mentioned in HPI. Reports systems reviewed and no addt'l complaints, except as documented Respiratory/Chest: No acute shortness of breath or respiratory distress or wheezing. CVS: Follows Dr. Heck. chronic dilatation of aortic root. Transient, localized chest pain over right side lasted for few seconds yesterday. No associated shortness of breath. Gastrointestinal: Denies coffee ground emesis, hematemesis or vomiting Genitourinary: Denies burning urination or new urinary tract symptoms Musculoskeletal: Denies acute joint pain or limited range of motion. No acute injury Neurologic: Denies seizure-like symptoms. Rest as described in HPI. skin: History of breast cancer status postchemotherapy. Patient in remission for more than 10 years. Followed by [facility] [place] oncologist and gets mammogram. Basal cell carcinoma excision over nose. Endocrinology: Reports systems reviewed and no addt'l complaints, except as documented Hematologic/Lymphatic: Reports systems reviewed and no addt'l complaints, except as documented Rest 14 ROS are negative except as mentioned in HPI Vital Signs Vital Signs Vital Signs: 02/27/23 14:23 02/27/23 14:47 02/27/23 15:17 Temperature 96.9 F L Temperature Source Temporal Pulse Rate 103 H 84 78 Respiratory Rate 18 16 17 Blood Pressure 134/104 H 101/77 101/77 Blood Pressure Mean 114 85 85 Pulse Ox 97 97 95 Oxygen Delivery Method Room Air Room Air Room Air 02/27/23 15:30 02/27/23 16:00 Temperature Temperature Source Pulse Rate 88 89 Respiratory Rate 14 12 Blood Pressure 150/101 H 160/106 H Blood Pressure Mean 117 124 Pulse Ox 95 94 Oxygen Delivery Method Room Air Weight Weight: 160 lb Body Mass Index (BMI) 29.2 Physical Exam Narrative General: Alert, Oriented x3, Cooperative HEENT: Epistaxis was cauterized. Hemostasis achieved. No nose packing. Scar over nose of excision surgery. Atraumatic, PERRLA, EOMI, Normocephalic. No tenderness over her right oriental orthodox or temporal artery not palpable. Oral: No acute spitting out blood. No Gingival or Mucosal Lesions/ Ulcerations Neck: Supple, No JVD, Negative Carotid Bruits Lungs: Air entry diminished in bilateral lung bases. No crepitation/rhonchi Cardiovascular: Irregular, sinus arrhythmia., Normal S1, Normal S2, No murmurs. Abdomen: Bowel Sounds Present, Soft, Non Tender, Non-Distended : No renal angle tenderness. No suprapubic tenderness. Extremities: No edema, Capillary Refill Less than 3 Seconds Skin: No rashes, No breakdown Musculoskeletal: Right lower extremity chronic weakness. Left lower extremity For 5 seconds. No Tenderness to Palpation of Joints or Extremities Neurological: Cranial nerves II-XII grossly intact, DTR 2+/4, NIH stroke scale 3. 2 for chronic RLE weakness and 1 for decreased sensation in the left leg. Psych/Mental Status: Flat affect, anxious. Results Lab / Micro Data Result Diagrams: 02/27/23 15:00 02/27/23 15:00 Labs: Laboratory Results - last 24 hr 02/27/23 14:53: POC Glucose 125 H 02/27/23 15:00: WBC 6.5, RBC 4.32, Hgb 13.2, Hct 41.0, MCV 94.9, MCH 30.6, MCHC 32.2, RDW Std Deviation 48.3 H, RDW Coeff of Jeffrey 13.9, Plt Count 201, MPV 10.2, Immature Gran % (Auto) 0.300, Neut % (Auto) 57.8, Lymph % (Auto) 30.3, Stone % (Auto) 9.9, Eos % (Auto) 1.1, Baso % (Auto) 0.6, Absolute Neuts (auto) 3.7, Absolute Lymphs (auto) 1.96, Nucleated RBC % 0, ESR 15 02/27/23 15:00: PT 13.2, INR 1.0, APTT 23.6 L 02/27/23 15:00: Sodium 138, Potassium 3.7, Chloride 102, Carbon Dioxide 30.0, Anion Gap 6, BUN 21 H, Creatinine 0.99, Estim Creat Clear Calc 37.64, Est GFR (MDRD) Af Amer 70, Est GFR (MDRD) Non-Af 58 L, BUN/Creatinine Ratio 21.3 H, Glucose 129 H, Calcium 9.3, Troponin I High Sens 11 Rhythm Strip Rhythm Strip: Sinus Rhythm Rate: 99 Ectopy: None Radiology Impression Brain CT 02/27/23 14:47 IMPRESSION: Chronic involutional changes of the brain. N.B. : The above Results were Read Back by Alexis Lee MD to Aydin Mcbride and understanding confirmed on 02/27/2023 15:24:20 (ET). Electronically Signed: Alexis Lee MD at 15:25 EDT , ADDENDUM: 02/27/23 1532 IMPRESSION: Chronic involutional changes of the brain. N.B. : The above Results were Read Back by Alexis Lee MD to Aydin Mcbride and understanding confirmed on 02/27/2023 15:24:20 (ET). Electronically Signed: Alexis Lee MD at 15:25 EDT , Head/Neck CTA 02/27/23 15:12 IMPRESSION: Atherosclerotic plaque formation at the origin of the right and left internal carotid arteries causing less than 50% stenosis. N.B. : The above Results were Read Back by Alexis Lee MD to Aydin Mcbride and understanding confirmed on 02/27/2023 15:30:59 (ET). Electronically Signed: Alexis Lee MD at 15:32 EDT , ADDENDUM: 02/27/23 1539 IMPRESSION: Atherosclerotic plaque formation at the origin of the right and left internal carotid arteries causing less than 50% stenosis. N.B. : The above Results were Read Back by Alexis Lee MD to Aydin Mcbride and understanding confirmed on 02/27/2023 15:30:59 (ET). Electronically Signed: Alexis Lee MD at 15:32 EDT , Assessment & Plan Assessment/Plan (1) Vertigo: (2) Near syncope: (3) Acute anterior epistaxis: PLAN: Plan This 70-year-old female being admitted for work-up for stroke alert 1. Vertigo, dizziness, transient blurry visions/visual field deficit rule out posterior stroke: Patient is being admitted in PCU. ESR 15 mm not elevated. CTA head and neck shows atherosclerotic plaque formation at origin of right and left ICA less than 50% stenosis. CT brain does not show acute intracranial abnormality. I do not suspect giant cell arteritis. CRP ordered. PT, OT, speech therapy/swallow evaluation and management, nursing NIH stroke scale, BP and glucose monitoring and control as per stroke protocol. TSH, A1c fasting lipid profile tomorrow AM. MRI brain and 2D echo with bubble contrast study ordered. MRI brain ordered. 2D echo ordered. 2. Acute epistaxis probably due to excessive dose of Anacin: Patient also had basal cell excision therefore might have scar tissue which cause bleeding after he took 4 tablets of Anacin along with daily baby aspirin. Hemostasis has been achieved. 3. Transient chest pain yesterday: It is not typical anginal pain or characteristics of unstable angina. No associated shortness of breath. First troponin was normal. Twelve-lead EKG shows normal sinus rhythm 82 bpm, QTc 432 ms. [place] 172 ms. Second troponin ordered. Patient has history of mild aortic root dilatation and is being followed by Dr. Heck. Last echo in January 2022 reported EF 65% grossly normal LV size wall motion and systolic function. Mild TR and mild eccentric MR. Borderline enlarged aortic root. No evidence of diastolic dysfunction. Exercise nuclear perfusion stress test was normal in April 2017. 4. History of breast cancer in remission, basal cell carcinoma status post excision over nose, GERD, obstructive sleep apnea: Patient uses CPAP. 5. Hyperglycemia: Patient has history of allergy to iodine contrast therefore had Solu-Medrol and prednisone. Glucose was 129 BMP but went up to 200 2021. Accu-Cheks every 6 hourly VTE prophylaxis, high risk: Pharmacological prophylaxis contraindicated because of acute epistaxis. Bilateral SCDs. Living will/advanced directive/end of life care: Patient does have living will or advanced directive. Her is power of deputy commonwealth's attorney for health. After discussion of benefits/risks procedures involved with full code, DNR CC arrest and DNR CC, the patient and her opted for DNRCC arrest with no intubation. Her agrees with . Patient doesn't want artificial life support including intubation, tube feed, ventilator and/chest compression, central venous catheter, vasopressor and DC shock if needed Total time spent in [id number] encounter in discussion of advanced directive 17 minutes. Clinical Impression(s) from Imaging Studies Brain CT 02/27/23 14:47 IMPRESSION: Chronic involutional changes of the brain. Head/Neck CTA 02/27/23 15:12 IMPRESSION: Atherosclerotic plaque formation at the origin of the right and left internal carotid arteries causing less than 50% stenosis. Laboratory Results 02/27/23 14:53: POC Glucose 125 H 02/27/23 15:00: WBC 6.5, RBC 4.32, Hgb 13.2, Hct 41.0, MCV 94.9, MCH 30.6, MCHC 32.2, RDW Std Deviation 48.3 H, RDW Coeff of Jeffrey 13.9, Plt Count 201, MPV 10.2, Immature Gran % (Auto) 0.300, Neut % (Auto) 57.8, Lymph % (Auto) 30.3, Stone % (Auto) 9.9, Eos % (Auto) 1.1, Baso % (Auto) 0.6, Absolute Neuts (auto) 3.7, Absolute Lymphs (auto) 1.96, Nucleated RBC % 0, ESR 15 02/27/23 15:00: PT 13.2, INR 1.0, APTT 23.6 L 02/27/23 15:00: Sodium 138, Potassium 3.7, Chloride 102, Carbon Dioxide 30.0, Anion Gap 6, BUN 21 H, Creatinine 0.99, Estim Creat Clear Calc 37.64, Est GFR (MDRD) Af Amer 70, Est GFR (MDRD) Non-Af 58 L, BUN/Creatinine Ratio 21.3 H, Glucose 129 H, Calcium 9.3, Troponin I High Sens 11 02/27/23 15:00: Magnesium 2.0 02/27/23 18:41: POC Glucose 222 H Charges/Coding Visit Charges Inpatient E&M: 99982 Init Hosp L3 Procedures Hospitalists Procedures: 09105 Advncd Care Plan 30 Min
--- NOTE | 2023-02-27 17:55 | MRI_ITS ---
STUDY: MRI BRAIN WITHOUT CONTRAST REASON FOR EXAM: Female, 77 years old. stroke, R SIDED HEADACHE, DIZZINESS, DIFFICULTY SPEAKING TECHNIQUE: MRI examination brain fusion protocol including multiplanar multiecho noncontrast imaging. Contrast: No contrast administered. COMPARISON: MRI of 05/12/2022 HEMISPHERES, CEREBELLUM AND BRAINSTEM: 1. The cerebral parenchyma, ventricular system, subarachnoid spaces have normal configuration and density. There is a normal gyral pattern. There is normal best/white differentiation. No midline shift.. 2. Diffuse involutional changes and chronic microvascular deep white matter disease. 3. There is a small punctate area of DWI hyperintensity in the LEFT parietal deep white matter measuring approximately 3 mm consistent with small acute lacunar infarct. No hemorrhage noted. 4. Remote lacunar infarcts are present within the basal ganglia bilaterally 5. No evidence of intraparenchymal mass or hemorrhage. 6. The cerebellum, brainstem, basilar and suprasellar cisterns have normal configuration. Moderate pontine white matter changes are present.. No Chiari malformation. PITUITARY: The pituitary is a prominent for age however negligible change. No destructive bony process.. CSF SPACES: Appropriate for age. No hydrocephalus. Basal cisterns are patent. VESSELS: 1. There are normal flow voids noted in the great vessels at the skull base ORBITS AND PARANASAL SINUSES: 1. Both globes, extraocular muscles, optic nerves and retrobulbar fat appear unremarkable. 2. Paranasal sinuses are clear. BONY ELEMENTS: Bony elements of the cranial vault, facial skeleton and skull base have normal appearance. SCALP AND SOFT TISSUES: Normal appearance of the soft tissues of the scalp and the visualized face OTHER: None MRI/Brain without Contrast IMPRESSION: 1. Single 3 mm punctate area of nonhemorrhagic ischemia within the LEFT parietal lobe subcortical white matter. 2. No other evidence of mass, hemorrhage, or acute territorial infarct. 3. Diffuse involutional changes and chronic deep white matter disease. Areas of remote lacunar infarct are present within the basal ganglia bilaterally. Electronically Signed: Martin Ramirez MD at 20:38 EDT ,
--- NOTE | 2023-02-27 17:55 | ECHOCS_ITS ---
Reason For Study: TIA/CVA Procedure This was a 2D Doppler, Color Flow transthoracic echocardiogram. The study was technically difficult. Contrast injection was performed. Exam performed portable in patient room. Left Ventricle Normal LV size. Left ventricular systolic function is normal. The estimated ejection fraction is 65 %. Stage 1 diastolic dysfunction. No regional wall motion abnormalities noted. Right Ventricle Normal RV size. Normal systolic function. Atria Normal left atrium. Normal right atrium. Tricuspid Valve Normal tricuspid valve. Mild tricuspid valve insufficiency. Pulmonary artery systolic pressure is 24 mmHg. Aortic Valve Trisinus/trileaflet aortic valve. Mild focal aortic valve calcification. Mild (1+) aortic valve insufficiency. Pulmonic Valve The pulmonic valve is not well visualized. Great Vessels Normal aortic root. The pulmonary artery is normal size. Normal inferior vena cava. Pericardium/Pleural No pericardial effusion. Medication Diluted definity 2ml given slow IV push to enhance endocardial definition. Performed a rapid injection of agitated mix of 9 cc saline and 1cc air to assess for atrial septal defect. MMode/2D Measurements & Calculations LVIDd: 4.1 cm IVSd: 1.3 cm Ao root diam: 3.8 cm LVIDs: 3.1 cm LVPWd: 0.99 cm FS: 25.5 % LAV(MOD-bp): 37.8 ml LVAd ap4: 30.2 cm2 SV(MOD-sp4): 63.3 ml LAV(MOD-bp) Indexed: 21.8 ml/m2 LVLd ap4: 7.9 cm LAV(MOD-sp2): 50.4 ml EDV(MOD-sp4): 95.5 ml LAV(MOD-sp4): 28.2 ml EDV(sp4-el): 98.2 ml LVAs ap4: 15.7 cm2 LVLs ap4: 6.4 cm ESV(MOD-sp4): 32.2 ml ESV(sp4-el): 32.6 ml EF(MOD-sp4): 66.3 % EF(sp4-el): 66.8 % SV(sp4-el): 65.6 ml LA A4 area: 12.9 cm2 Time Measurements MV dec time: 0.19 sec Doppler Measurements & Calculations MV E max artie: 53.6 cm/sec Lat Peak E' Artie: 6.8 cm/sec Med Peak E' Artie: 4.8 cm/sec MV A max artie: 122.5 cm/sec E/E' lat: 7.9 E/E' med: 11.1 MV E/A: 0.44 MV V2 max: 131.6 cm/sec MV P1/2t max artie: 82.6 cm/sec Ao V2 max: 159.8 cm/sec MV max P.9 mmHg MV P1/2t: 85.7 msec Ao max P.2 mmHg MV V2 mean: 67.9 cm/sec Ao V2 mean: 117.1 cm/sec MV mean P.2 mmHg MV dec slope: 282.4 cm/sec2 Ao mean P.0 mmHg MV V2 VTI: 27.1 cm MVA(P1/2t): 2.6 cm2 Ao V2 VTI: 33.0 cm AV (velocity ratio): 0.97 AI max artie: 418.1 cm/sec LV V1 max: 154.7 cm/sec PA V2 max: 109.8 cm/sec AI max P.6 mmHg LV V1 max P.6 mmHg PA V2 mean: 75.0 cm/sec AI dec slope: 244.5 cm/sec2 LV V1 mean P.8 mmHg AI P1/2t: 500.8 msec LV V1 mean: 99.7 cm/sec LV V1 VTI: 32.2 cm TR max artie: 232.3 cm/sec TR max P.6 mmHg ECHO/Echo Complete W/ Contrast Interpretation Summary Normal LV size. Left ventricular systolic function is normal. The estimated ejection fraction is 65 %. Stage 1 diastolic dysfunction. Contrast injection was performed. Ordering Physician: Adis Walker Referring Physician: [place] Chi Performed By: Papa Vallecillo RCS
[2023-02-27] MEDS: Lactated Ringers 1,000 ML 100 ML IV (18:17)
[2023-02-27 19:03] LABS: Bedside Glucose 222 mg/dL (74-106)
[2023-02-27 20:53] LABS: Troponin-I HS 10 pg/mL (3.0-54.0)
[2023-02-27 22:52] LABS: Bacteria 0 SEEN /hpf (None Seen); Mucous, Urine 0 SEEN /hpf (<or=2+); Red Blood Cells-Urine 0 SEEN /hpf (0-5); Squamous Epithelial Cells - UA 0 SEEN /hpf (5-10); White Blood Cells 0 SEEN /hpf (0-5)
[2023-02-27 22:54] LABS: Color, Urine Yellow (Yellow); Glucose, Dipstick 1000 mg/dl (Normal); Ketone-Dipstick 15 mg/dl (Negative); Leukocyte Esterase-Dipstick Negative /ul (Negative); Nitrite-Dipstick Negative (Negative); Occult Blood-Urine 10 /ul (Negative); Protein-Dipstick Negative (Negative); Urine Bilirubin Dipstick Negative (Negative); Urine Clarity Clear (Clear); Urine Urobilinogen Normal (Normal)
[2023-02-28] VITALS (10 sets, daily range): BP systolic 118–158; BP diastolic 71–103; PULSE 88–103; RESP 16–18; TEMP 36.6–36.8; O2SAT 90–96; BMI 29.2
[2023-02-28 02:54] LABS: Bedside Glucose 249 mg/dL (74-106)
[2023-02-28] MEDS: Acetaminophen 325 MG Tablet 650 MG PO (04:07)
[2023-02-28 05:48] LABS: Absolute Lymphocyte Count 0.78 X10^3/uL (0.83-4.51); Basophil# 0.01 X10^3/uL; Basophil% 0.1 % (0-1); Hematocrit 38.3 % (37-47); Hemoglobin 12.8 g/dL (12.0-15.0); Lymphocyte # 0.78 X10^3/ul (0.83-4.51); Lymphocyte % 8.7 % (19-41); Mean Corp Hgb Conc 33.4 g/dL (32-36); Mean Corpuscular Hgb 30.8 pg (27.0-32.0); Mean Corpuscular Volume 92.1 fL (81-99); Mean Platelet Vol. 10.4 fl (6.2-12.0); Monocyte% 1.1 % (0-10); NRBC Flagged by Analyzer 0 % (0-5); Neutrophil # 8.02 X10^3/uL (2.7-7.7); Neutrophil % 89.5 % (47-70); Platelet Count 209 K/mm3 (150-450); RBC Distribution Width CV 13.5 % (11.6-14.6); RBC Distribution Width SD 45.8 fl (35.1-43.9); Red Blood Count 4.16 M/mm3 (4.2-5.4)
[2023-02-28] MEDS: 0.9% Normal Saline 1,000 ML 75 ML IV (06:03)
[2023-02-28 06:31] LABS: Anion Gap 9 (5-15); BUN 21 mg/dL (7-18); BUN/Creat Ratio 22.1 RATIO (10-20); Calcium,Total 9.4 mg/dL (8.5-10.1); Chloride 101 mmol/L (98-107); Cholesterol 256 mg/dL (200); Creatinine, Serum 0.95 mg/dL (0.55-1.02); EST Glomerular Filtration Rate 60 mL/min (>60); Est Glom Filt Rate - Afr Amer 73 mL/min (>60); Estimated Creatinine Clearance 39.22 ml/min; Glucose 217 mg/dL (74-106); High Density Lipoprotein 58 mg/dL; Potassium 3.5 mmol/L (3.5-5.1); Sodium Level 135 mmol/L (136-145); Thyroid Stim Hormone (TSH) 0.29 uIU/mL (0.358-3.74); Triglycerides 85 mg/dL; Very Low Density Lipoprotein 17 mg/dL (5-40)
[2023-02-28 06:54] LABS: Bedside Glucose 221 mg/dL (74-106)
[2023-02-28] MEDS: Cholecalciferol (Vit D3) 125 MCG CAPSULE (5,000 UNITS) PO (08:27)
[2023-02-28] MEDS: Pantoprazole Sodium 40 MG Tablet PO (08:27)
[2023-02-28] MEDS: Citalopram 20 MG Tablet PO (08:27)
[2023-02-28] MEDS: Aspirin E.C. 81 MG Tablet PO (08:27)
[2023-02-28 08:48] LABS: Hemoglobin A1c 6.9 % (3.8-5.6)
--- NOTE | 2023-02-28 12:03 | ST ---
ST is recommending Outpatient Speech Therapy post d/c to address cognitive changes.
[2023-02-28 12:14] LABS: Bedside Glucose 348 mg/dL (74-106)
--- NOTE | 2023-02-28 14:43 | PCM.PROGNOTE ---
Subjective Subjective Patient seen and examined. She was admitted with a complaint of headache and dizziness as well as vertigo. She states she started having nosebleeds which was initially from the right nostril and then subsequently came from both nostrils. She subsequently started feeling lightheaded and dizzy and had sudden onset of right-sided headache. She came into the ED where MRI of the brain done confirmed left parietal stroke. Patient seen and examined today. She had no complaints and had an uneventful night. She denied any fever, chills, nausea vomiting or any other systems otherwise negative. She has remained hemodynamically stable. Objective Data Objective Data Vital Signs: Vital Signs Temp Pulse Resp BP Pulse Ox O2 Del Method 97.8 F 103 H 16 132/88 H 92 Room Air 02/28/23 10:00 02/28/23 10:00 02/28/23 10:00 02/28/23 10:00 02/28/23 10:00 02/28/23 10:00 Oxygen Delivery Method Room Air Weight: 159 lb 13.362 oz Body Mass Index (BMI) 29.2 Intake & Output: Intake and Output for Last 24 Hours 02/26/23 02/27/23 02/28/23 23:59 23:59 23:59 Intake Total 306.67 / 306.67 1013.33 / 1013.33 Output Total 900 / 900 Balance -593.33 / -593.33 1013.33 / 1013.33 Lab / Micro Data Result Diagrams: 02/28/23 05:10 02/28/23 05:10 Labs: Laboratory Results - last 24 hr 02/27/23 14:53: POC Glucose 125 H 02/27/23 15:00: WBC 6.5, RBC 4.32, Hgb 13.2, Hct 41.0, MCV 94.9, MCH 30.6, MCHC 32.2, RDW Std Deviation 48.3 H, RDW Coeff of Jeffrey 13.9, Plt Count 201, MPV 10.2, Immature Gran % (Auto) 0.300, Neut % (Auto) 57.8, Lymph % (Auto) 30.3, Gove % (Auto) 9.9, Eos % (Auto) 1.1, Baso % (Auto) 0.6, Absolute Neuts (auto) 3.7, Absolute Lymphs (auto) 1.96, Nucleated RBC % 0, ESR 15 02/27/23 15:00: PT 13.2, INR 1.0, APTT 23.6 L 02/27/23 15:00: Sodium 138, Potassium 3.7, Chloride 102, Carbon Dioxide 30.0, Anion Gap 6, BUN 21 H, Creatinine 0.99, Estim Creat Clear Calc 37.64, Est GFR (MDRD) Af Amer 70, Est GFR (MDRD) Non-Af 58 L, BUN/Creatinine Ratio 21.3 H, Glucose 129 H, Calcium 9.3, Troponin I High Sens 11 02/27/23 15:00: Magnesium 2.0 02/27/23 18:41: POC Glucose 222 H 02/27/23 20:04: Troponin I High Sens 10 02/27/23 22:00: Urine Color Yellow, Urine Clarity Clear, Urine pH 7.0, Ur Specific [place] 1.010, Urine Protein Negative, Urine Glucose (UA) 1000 H, Urine Ketones 15 H, Urine Occult Blood 10 H, Urine Nitrite Negative, Urine Bilirubin Negative, Urine Urobilinogen Normal, Ur Leukocyte Esterase Negative, Urine RBC 0 SEEN, Urine WBC 0 SEEN, Ur Squamous Epith Cells 0 SEEN, Urine Bacteria 0 SEEN, Urine Mucus 0 SEEN 02/28/23 02:35: POC Glucose 249 H 02/28/23 05:10: Sodium 135 L, Potassium 3.5, Chloride 101, Carbon Dioxide 25.0, Anion Gap 9, BUN 21 H, Creatinine 0.95, Estim Creat Clear Calc 39.22, Est GFR (MDRD) Af Amer 73, Est GFR (MDRD) Non-Af 60, BUN/Creatinine Ratio 22.1 H, Glucose 217 H, Calcium 9.4, Triglycerides 85, Cholesterol 256 H, LDL Cholesterol 181 H, VLDL Cholesterol 17, HDL Cholesterol 58, TSH 0.29 L 02/28/23 05:10: WBC 9.0, RBC 4.16 L, Hgb 12.8, Hct 38.3, MCV 92.1, MCH 30.8, MCHC 33.4, RDW Std Deviation 45.8 H, RDW Coeff of Jeffrey 13.5, Plt Count 209, MPV 10.4, Immature Gran % (Auto) 0.600, Neut % (Auto) 89.5 H, Lymph % (Auto) 8.7 L, Gove % (Auto) 1.1, Eos % (Auto) 0.0, Baso % (Auto) 0.1, Absolute Neuts (auto) 8.0 H, Absolute Lymphs (auto) 0.78 L, Nucleated RBC % 0 02/28/23 05:10: Hemoglobin A1c 6.9 H 02/28/23 06:16: POC Glucose 221 H 02/28/23 11:56: POC Glucose 348 H Radiography Diagnostic Testing: Radiology Impression Brain CT 02/27/23 14:47 IMPRESSION: Chronic involutional changes of the brain. N.B. : The above Results were Read Back by Alexis Lee MD to Aydin Mcbride and understanding confirmed on 02/27/2023 15:24:20 (ET). Electronically Signed: Alexis Lee MD at 15:25 EDT , ADDENDUM: 02/27/23 1532 IMPRESSION: Chronic involutional changes of the brain. N.B. : The above Results were Read Back by Alexis Lee MD to Aydin Mcbride and understanding confirmed on 02/27/2023 15:24:20 (ET). Electronically Signed: Alexis Lee MD at 15:25 EDT , Head/Neck CTA 02/27/23 15:12 IMPRESSION: Atherosclerotic plaque formation at the origin of the right and left internal carotid arteries causing less than 50% stenosis. N.B. : The above Results were Read Back by Alexis Lee MD to Aydin Mcbride and understanding confirmed on 02/27/2023 15:30:59 (ET). Electronically Signed: Alexis Lee MD at 15:32 EDT , ADDENDUM: 02/27/23 1539 IMPRESSION: Atherosclerotic plaque formation at the origin of the right and left internal carotid arteries causing less than 50% stenosis. N.B. : The above Results were Read Back by Alexis Lee MD to Aydinkevin Mcbride and understanding confirmed on 02/27/2023 15:30:59 (ET). Electronically Signed: Alexis Lee MD at 15:32 EDT , Brain MRI 02/27/23 17:55 IMPRESSION: 1. Single 3 mm punctate area of nonhemorrhagic ischemia within the LEFT parietal lobe subcortical white matter. 2. No other evidence of mass, hemorrhage, or acute territorial infarct. 3. Diffuse involutional changes and chronic deep white matter disease. Areas of remote lacunar infarct are present within the basal ganglia bilaterally. Electronically Signed: Martin Ramirez MD at 20:38 EDT , Rhythm Strip Rhythm Strip: Sinus Rhythm Rate: 99 Ectopy: None Physical Exam Const alert, oriented x3 and no apparent distress General Appearance: cooperative HEENT head/scalp atraumatic and moist oral mucous membranes Eyes PERRL and EOMs intact bilaterally Neck no lymphadenopathy, supple and no JVD Lymph Lymphatic: no lymphadenopathy noted and no lymphedema noted Resp normal respiratory effort, normal air movement and clear to auscultation bilaterally Cardio regular rate, regular rhythm, S1 normal heart sound, S2 normal heart sound and no murmurs GI normal to inspection, nondistended, normoactive bowel sounds, soft to palpation, non-tender and non-distended Extremity normal capillary refill, no clubbing, cyanosis or edema and no calf tenderness Skin General Skin Exam: no breakdown and turgor normal Neuro CN's II-XII intact bilaterally, no focal motor deficits, no sensory deficits noted and deep tendon reflexes 2+ bilaterally Motor Exam: strength 5/5 throughout Psych thought process normal, cooperative and affect normal Appearance: appropriate Assessment & Plan Assessment/Plan (1) Vertigo: PLAN: Plan #Acute CVA She was admitted with a complaint of vertigo and dizziness and CT of the brain done showed no evidence of acute CVA. CT of the head and neck showed atherosclerotic plaque formation at origin of right and left internal carotid artery with less than 50% stenosis. MRI of the brain did confirm a small nonischemic parietal stroke. 2D echo ordered. On aspirin and high intensity statin. We will add on Plavix. PT OT on board. For precautions. Lipid panel showed cholesterol of 256 with LDL of 181 and HDL of 58. Will start on high intensity statin #Hyperlipidemia: As above #Acute epistasis: Has not recurred since she was admitted. #History of breast cancer: Stable #History of basal cell carcinoma: S/p excision of the nose. Stable. #Type 2 diabetes mellitus: Patient does not know she is diabetic. He also noted to be hyperglycemic. A1c is 6.9. She does meet the criteria for diabetes. Will place on insulin sliding scale and start on p.o. metformin. #Abnormal TSH: TSH is very low. Will check free T4 to evaluate for hyperparathyroidism DVT prophylaxis: Lovenox Charges/Coding Visit Charges Inpatient E&M: 53162 Subs Hosp L2
--- NOTE | 2023-02-28 16:28 | CASEMGMT ---
Sw presented to bedside and introduced self to patient. Sw explained reason why PHQ-9 needed to be completed and asked permission to complete assessment with . Patient stated that it was ok. Sw completed assessment and provided empathetic support and listening. Patient scored 16 on PHQ-9 and was receptive to list of mental health agencies. Sw provided list of agencies. Patient talkative and receptive to sw support. Efren Webster, FOUNDRY FINISHER, NETSUITE CONSULTANT
--- NOTE | 2023-02-28 16:33 | CHAPLAIN ---
Type of Pastoral Visit ___ Initial Visit _x__ Follow-up Visit ___ On-call Visit ___ General Patient Visit ___ Spiritual Assessment ___ Family Conference ___ Bereavement ___ Rapid Response ___ Code Blue ___ Other (describe below) Pastoral Care Referral From _x__ Patient _x__ Family ___ Nurse ___ Physician ___ Director Of Curriculum And Instruction ___ Manager Biostatistics ___ Other (describe below) Sacrament/Intervention _x__ Active listening ___ Anointing ___ Yazidism ___ Bereavement ___ Communion _x__ Kary exploration ___ _x__ Life review _x__ Prayer ___ Reconciliation ___ Sacrament of Sick ___ Supportive presence ___ Wedding ___ Other (describe below) Pastoral Comments follow up visit to patient that came to ED yesterday and was a stroke alert; pt gives review of current health; pt is one that looks to God and kary for her support; pt gives credit of better results to God and that I am determined to keep working for Him; spouse is present and supportive; pt is talkative about her life and her kary; prayer and presence welcomed
--- NOTE | 2023-02-28 16:41 | CASEMGMT ---
LUH CM in to complete JUAREZ form with patient. RN MARQUISE explained JUAREZ Form to patient, patient voiced understanding. Patient signed JUAREZ form and filed in chart. Patient provided with copy of signed JUAREZ form. Patient had no further questions or concerns at this time.
[2023-02-28] MEDS: metFORMIN HCl 500 MG Tablet PO (17:40)
[2023-02-28] MEDS: Insulin Lispro 100 UNIT/ML INSULN.PEN SC (17:40)
[2023-02-28] MEDS: Clopidogrel Bisulfate 75 MG Tablet PO (17:40)
[2023-02-28 18:12] LABS: Bedside Glucose 183 mg/dL (74-106)
[2023-02-28] MEDS: Atorvastatin Calcium 40 MG Tablet PO (21:23)
[2023-02-28 22:12] LABS: Bedside Glucose 127 mg/dL (74-106)
[2023-03-01 01:00] VITALS: BP 152/108; PULSE 84; RESP 18; TEMP 36.6; O2SAT 94
[2023-03-01 05:00] VITALS: BP 157/93; PULSE 81; RESP 16; TEMP 36.8; O2SAT 93
[2023-03-01 06:37] LABS: Absolute Lymphocyte Count 3.23 X10^3/uL (0.83-4.51); Basophil# 0.04 X10^3/uL; Basophil% 0.3 % (0-1); Eosinophil# 0.09 X10^3/uL; Eosinophils% 0.7 % (0-5); Hematocrit 40.4 % (37-47); Hemoglobin 13.2 g/dL (12.0-15.0); Lymphocyte # 3.23 X10^3/ul (0.83-4.51); Lymphocyte % 26.2 % (19-41); Mean Corp Hgb Conc 32.7 g/dL (32-36); Mean Corpuscular Volume 94.8 fL (81-99); Mean Platelet Vol. 10.6 fl (6.2-12.0); Monocyte# 0.89 X10^3/uL; Monocyte% 7.2 % (0-10); NRBC Flagged by Analyzer 0 % (0-5); Neutrophil # 8.04 X10^3/uL (2.7-7.7); Neutrophil % 65.1 % (47-70); Platelet Count 227 K/mm3 (150-450); RBC Distribution Width CV 14.1 % (11.6-14.6); RBC Distribution Width SD 48.5 fl (35.1-43.9); Red Blood Count 4.26 M/mm3 (4.2-5.4); White Blood Count 12.4 K/mm3 (4.4-11.0)
[2023-03-01 06:46] LABS: Bedside Glucose 132 mg/dL (74-106)
[2023-03-01 07:31] VITALS: BP 143/83; PULSE 72; RESP 14; TEMP 36.6; O2SAT 93
[2023-03-01 07:31] LABS: Anion Gap 7 (5-15); BUN 21 mg/dL (7-18); BUN/Creat Ratio 23.5 RATIO (10-20); Calcium,Total 9.8 mg/dL (8.5-10.1); Chloride 104 mmol/L (98-107); Creatinine, Serum 0.89 mg/dL (0.55-1.02); EST Glomerular Filtration Rate 65 mL/min (>60); Est Glom Filt Rate - Afr Amer 79 mL/min (>60); Estimated Creatinine Clearance 41.87 ml/min; Glucose 126 mg/dL (74-106); Potassium 3.6 mmol/L (3.5-5.1); Sodium Level 139 mmol/L (136-145)
[2023-03-01] MEDS: Clopidogrel Bisulfate 75 MG Tablet PO (10:00)
[2023-03-01] MEDS: metFORMIN HCl 500 MG Tablet PO (10:00)
[2023-03-01] MEDS: Citalopram 20 MG Tablet PO (10:00)
[2023-03-01] MEDS: Aspirin E.C. 81 MG Tablet PO (10:00)
[2023-03-01] MEDS: Cholecalciferol (Vit D3) 125 MCG CAPSULE (5,000 UNITS) PO (10:00)
[2023-03-01] MEDS: Pantoprazole Sodium 40 MG Tablet PO (10:00)
[2023-03-01 11:00] VITALS: BP 150/95; PULSE 73; RESP 16; TEMP 36.6; O2SAT 97
--- NOTE | 2023-03-01 12:02 | DCINST_ITS ---
Discharge Instructions Diet Discharge Diet: Low fat / Low cholesterol Activity Discharge Activity: Return to Normal Activity Weight Bearing Status: Weight bearing as tolerated Dressing / Incision Call your doctor if you observe: Fever of 101 or Higher, Shortness of breath, Dizziness, Swelling in the ankles, Chest pain and Increased palpitations (irregular heartbeat) Follow Up Care Test Results: Test results from this visit will be discussed in further detail at your follow- up appointment, if applicable. Discharge Plan Admission Admit Date/Time: 02/27/23 16:54 Primary Reason for Your Visit: acute CVA Attending Provider: Sheila Lunsford Primary Care Provider: North Cuellar Chi Consulting Providers: Adis Walker Instructions Patient Instructions: Booklet - [facility] Stroke ED - Living After Stroke, Booklet - Understanding Stroke Discharge Orders/Prescriptions Prescriptions: New atorvastatin 40 mg Tablet 40 mg PO QHS Qty: 30 2RF metformin 500 mg Tablet 500 mg PO BIDCM Qty: 60 2RF clopidogrel 75 mg Tablet 75 mg PO DAILY Qty: 30 2RF Continued pantoprazole 40 mg tablet,delayed release (DR/EC) 40 mg PO DAILY aspirin [Adult Low Dose Aspirin] 81 mg tablet,delayed release (DR/EC) 81 mg PO DAILY citalopram 20 mg tablet 20 mg PO DAILY cholecalciferol (vitamin D3) 125 mcg (5,000 unit) tablet 125 mcg PO DAILY Referrals / Follow Up: Randy Santiago MD [Non-Staff -Ordering Privileges] - Within 2 Weeks North Cuellar Chi, MD [Primary Care Provider] - Within 2 Weeks Disposition Disposition (needs filled in before D/C Order can be placed): Home, Self Care
--- NOTE | 2023-03-01 12:03 | DS.PCM_ITS ---
Providers Date of Admission: 02/27/23 Date of Discharge: 03/01/23 Primary Care Physician: Dr. North Cuellar MD Reason For Visit: STROKE ALERT Diagnosis Discharge Diagnosis (1) Vertigo: Status: Acute Code(s): R42 - Dizziness and giddiness Plan #Acute CVA * She was admitted with a complaint of vertigo and dizziness and CT of the brain done showed no evidence of acute CVA. CT of the head and neck showed atherosclerotic plaque formation at origin of right and left internal carotid artery with less than 50% stenosis. * MRI of the brain did confirm a small nonischemic parietal stroke. * 2D echo ordered. On aspirin and high intensity statin. We will add on Plavix. * PT OT on board. For precautions. * Lipid panel showed cholesterol of 256 with LDL of 181 and HDL of 58. * Will start on high intensity statin * #Hyperlipidemia: As above * #Acute epistasis: Has not recurred since she was admitted. #History of breast cancer: Stable #History of basal cell carcinoma: S/p excision of the nose. Stable. #Type 2 diabetes mellitus: * Patient does not know she is diabetic. He also noted to be hyperglycemic. A1c is 6.9. She does meet the criteria for diabetes. Will place on insulin sliding scale and start on p.o. metformin. #Abnormal TSH: TSH is very low. Will check free T4 to evaluate for hyperpa rathyroidism DVT prophylaxis: Lovenox Medications at Discharge Home Medications cholecalciferol (vitamin D3) 125 mcg (5,000 unit) tablet 125 mcg PO DAILY vitamin 01/29/22 citalopram 20 mg tablet 20 mg PO DAILY mental health 01/29/22 aspirin 81 mg tablet,delayed release (Adult Low Dose Aspirin) 81 mg PO DAILY heart health 01/30/22 pantoprazole 40 mg tablet,delayed release 40 mg PO DAILY relfux 01/30/22 atorvastatin 40 mg tablet 40 mg PO QHS #30 tabs 03/01/23 clopidogrel 75 mg tablet 75 mg PO DAILY #30 tabs 03/01/23 metformin 500 mg tablet 500 mg PO BIDCM #60 tabs 03/01/23 Hospital Course Operations None Procedures 2-D Echocardiogram Summary of Care Provided Minutes Spent on Discharge: 55 Hospital Course: Patient is a 77-year-old female with a past medical history as outlined who came to the ED on 02/27/2023 with a complaint of spontaneous nosebleed that started 45 minutes prior to admission. It was initially from the right nostril but subsequently came from both nostrils. The day before she had had a sudden onset of right-sided headache and subsequently felt dizzy and lightheaded and also had vertigo. He felt like she was about to pass out. She had taken 2 tablets of Anacin the day before presentation for headache. On the day of presentation she also complained of difficulty speaking and finding words. On admission stroke alert was called and she was evaluated by [facility] teleneurology. NIH stroke scale was 1 for moderate sensory loss of the left side of face and left lower extremity. She was admitted to be worked up for stroke. Epistasis did not occur during this admission. Initial CT of the brain done was negative for any acute intracranial pathology. CTA of the head and neck showed atherosclerotic plaque formation at the origin of the right and left internal carotid artery with less than 50% stenosis. MRI of the brain did confirm a small ischemic parietal stroke. [facility] neurology was consulted and recommended adding on Plavix to her aspirin. She was also placed on high intensity statin. 2D echo showed normal left ventricular size with normal left ventricular systolic function and EF of 65% with stage I diastolic dysfunction. Her A1c was 6.9 indicating new onset diabetes. She was therefore started on metformin. Patient remained stable and was discharged home on 03/01/2023. She is follow-up with her primary care doctor and follow-up with neurology on outpatient basis. She was counseled that if her epistasis recurred, she was to stop her aspirin and Plavix and to come to the ED or call her PCP for further instructions. Patient seen and examined prior to discharge. She had no complaints and had an uneventful night. Review of systems otherwise negative. Labs and vitals reviewed. Home medication reviewed and reconciled. Physical Exam Const alert, oriented x3 and no apparent distress General Appearance: cooperative, comfortable and well kempt Orientation / Consciousness: awake HEENT normocephalic, head/scalp atraumatic, hearing grossly normal bilaterally and moist oral mucous membranes Eyes PERRL and EOMs intact bilaterally Neck no lymphadenopathy, supple and no JVD Lymph Lymphatic: no lymphadenopathy noted and no lymphedema noted Resp normal respiratory effort, normal air movement and clear to auscultation bilaterally Cardio regular rate, regular rhythm, S1 normal heart sound, S2 normal heart sound and no murmurs GI normal to inspection, nondistended, normoactive bowel sounds, soft to palpation, non-tender and non-distended Extremity normal capillary refill, no clubbing, cyanosis or edema and no calf tenderness Skin no rashes or lesions noted General Skin Exam: no breakdown and turgor normal Neuro CN's II-XII intact bilaterally, no focal motor deficits, no sensory deficits not ed and deep tendon reflexes 2+ bilaterally Motor Exam: strength 5/5 throughout Psych thought process normal, cooperative and affect normal Appearance: appropriate Weight / BMI Weight Weight: 159 lb 13.362 oz Body Mass Index (BMI) 29.2 ABG / Lab / Microbiology Data Result Diagrams: 03/01/23 05:32 03/01/23 05:32 Laboratory: Laboratory Results - last 24 hr 02/28/23 05:10: Free T4 1.00 02/28/23 11:56: POC Glucose 348 H 02/28/23 17:36: POC Glucose 183 H 02/28/23 21:22: POC Glucose 127 H 03/01/23 05:32: WBC 12.4 H, RBC 4.26, Hgb 13.2, Hct 40.4, MCV 94.8, MCH 31.0, MCHC 32.7, RDW Std Deviation 48.5 H, RDW Coeff of Jeffrey 14.1, Plt Count 227, MPV 10.6, Immature Gran % (Auto) 0.500, Neut % (Auto) 65.1, Lymph % (Auto) 26.2, [place] % (Auto) 7.2, Eos % (Auto) 0.7, Baso % (Auto) 0.3, Absolute Neuts (auto) 8.0 H, Absolute Lymphs (auto) 3.23, Nucleated RBC % 0 03/01/23 05:32: Sodium 139, Potassium 3.6, Chloride 104, Carbon Dioxide 28.0, Anion Gap 7, BUN 21 H, Creatinine 0.89, Estim Creat Clear Calc 41.87, Est GFR (MDRD) Af Amer 79, Est GFR (MDRD) Non-Af 65, BUN/Creatinine Ratio 23.5 H, Glucose 126 H, Calcium 9.8 03/01/23 06:29: POC Glucose 132 H Radiography Diagnostic Testing: Radiology Impression Echocardiogram 02/27/23 17:55 Interpretation Summary Normal LV size. Left ventricular systolic function is normal. The estimated ejection fraction is 65 %. Stage 1 diastolic dysfunction. Contrast injection was performed. Ordering Physician: Adis Walker Referring Physician: North Cuellar Chi Performed By: Papa Vallecillo RCS D/C Instructions Discharge Diet: Low fat / Low cholesterol Discharge Activity: Return to Normal Activity Weight Bearing Status: Weight bearing as tolerated Call your doctor if you observe: Fever of 101 or Higher, Shortness of breath, Dizziness, Swelling in the ankles, Chest pain and Increased palpitations (irregular heartbeat) Meaningful Use Info Meaningful Use Diagnoses (Choose all that apply): Ischemic CVA CVA Therapy Assessed for PT,OT and/or ST?: Yes Ischemic Stroke Antithrombotic order at d/c?: Yes Dx of Atrial fib/flutter?: No Anticoagulant at discharge?: No Reason anticoagulant not ordered: Treatment not Indicated Statins at discharge?: Yes Primary Dx Acute Ischemic CVA?: Yes IV thrombolytic ordered during stay?: No Reason IV thrombolytic not ordered: Treatment not Indicated Discharge Plan Admission Admit Date/Time: 02/27/23 16:54 Primary Reason for Your Visit: acute CVA Attending Provider: Sheila Lunsford Primary Care Provider: North Cuellar Chi Consulting Providers: Adis Walker Instructions Patient Instructions: Booklet - [facility] Stroke ED - Living After Stroke, Booklet - Understanding Stroke Discharge Orders/Prescriptions Prescriptions: New atorvastatin 40 mg Tablet 40 mg PO QHS Qty: 30 2RF metformin 500 mg Tablet 500 mg PO BIDCM Qty: 60 2RF clopidogrel 75 mg Tablet 75 mg PO DAILY Qty: 30 2RF Continued pantoprazole 40 mg tablet,delayed release (DR/EC) 40 mg PO DAILY aspirin [Adult Low Dose Aspirin] 81 mg tablet,delayed release (DR/EC) 81 mg PO DAILY citalopram 20 mg tablet 20 mg PO DAILY cholecalciferol (vitamin D3) 125 mcg (5,000 unit) tablet 125 mcg PO DAILY Referrals / Follow Up: Randy Santiago MD [Non-Staff -Ordering Privileges] - Within 2 Weeks North Cuellar Chi, MD [Primary Care Provider] - Within 2 Weeks Disposition Disposition (needs filled in before D/C Order can be placed): Home, Self Care Charges/Coding Visit Charges Inpatient E&M: 77718 Disch Hosp >30min
[2023-03-01 12:47] VITALS: BMI 29.2
== END 2023-03-01 13:32 | disposition home or self-care (01) ==
LOC: ED 17:04 → PCU 17:20
PROVIDERS: Admitting Provider Internal Medicine; Emergency Provider Emergency Medicine; PCP Family Medicine Geriatric Medicine; Visit Provider Student in an Organized Health Care Education/Training Program
DX: R42 Dizziness and giddiness (principal); I65.23 Occlusion and stenosis of bilateral carotid arteries; R47.89 Other speech disturbances; R55 Syncope and collapse; I10 Essential (primary) hypertension; F41.9 Anxiety disorder, unspecified; R04.0 Epistaxis; Z79.899 Other long term (current) drug therapy; Z79.82 Long term (current) use of aspirin; G47.33 Obstructive sleep apnea (adult) (pediatric); I25.10 Atherosclerotic heart disease of native coronary artery without angina pectoris; R73.9 Hyperglycemia, unspecified; R94.6 Abnormal results of thyroid function studies
CPT/HCPCS: 30901; 36415; 70450; 70496; 70498; 70551; 80048; 80061; 81001; 82962; 83036; 83735; 84439; 84443; 84484; 85025; 85610; 85652; 85730; 92507; 92523; 93005; 93306; 94668; 94762; 96361; 96374; 96375; 97162; 97166; 99221; 99285; J7030; J7120; Q9957; Q9967; A4216; C8929; G0378

== ENCOUNTER 2023-03-03 01:55 | Emergency (ER) | payer MEDICARE, SELFPAY ==
[2023-03-03 01:56] VITALS: BP 131/100; PULSE 100; RESP 16; TEMP 35.9; O2SAT 93; BMI 29.2
[2023-03-03] MEDS: Oxymetazoline 0.05% 1 SPRAY SPRAY.BTL 2 SPRAY NASAL (03:30)
--- NOTE | 2023-03-03 05:24 | EDS_ITS ---
HPI History of Present Illness Chief Complaint: Nosebleed Informant: patient and spouse/S.O. Narrative Narrative: Patient is a 77-year-old female with past medical history of hypertension who was seen recently secondary to right-sided nosebleed. She states the area was cauterized. She states she was doing well for the past day but this evening blew her nose and following this the bleeding from the right nostril. She states that she has been holding pressure but the bleeding has not stopped and secondary to this she comes in for evaluation. She reports that she is on aspirin and Plavix but denies any true thinners such as Coumadin Eliquis or [facility] Medical History Anxiety Breast cancer Essential hypertension Fatty liver GERD (gastroesophageal reflux disease) CATHERINE (obstructive sleep apnea) Thoracic aortic aneurysm without rupture Home Medications cholecalciferol (vitamin D3) 125 mcg (5,000 unit) tablet 125 mcg PO DAILY vitamin 01/29/22 [History Last Taken 02/27/23] citalopram 20 mg tablet 20 mg PO DAILY mental health 01/29/22 [History Last Taken 02/27/23] aspirin 81 mg tablet,delayed release (Adult Low Dose Aspirin) 81 mg PO DAILY heart health 01/30/22 [History Last Taken 02/27/23] pantoprazole 40 mg tablet,delayed release 40 mg PO DAILY relfux 01/30/22 [History Last Taken 02/26/23] atorvastatin 40 mg tablet 40 mg PO QHS #30 tabs 03/01/23 [Rx Last Taken Unknown] clopidogrel 75 mg tablet 75 mg PO DAILY #30 tabs 03/01/23 [Rx Last Taken Unknown] metformin 500 mg tablet 500 mg PO BIDCM #60 tabs 03/01/23 [Rx Last Taken Unknown] Allergy/AdvReac Type Severity Reaction Status Date / Time terazosin [From Hytrin] Allergy Severe Face Verified 03/03/23 01:58 swelling iodine Allergy face Verified 03/03/23 01:58 swelling after scan acetaminophen AdvReac Severe Nightmares Verified 03/03/23 01:58 [From Darvocet-N 100] propoxyphene AdvReac Severe Nightmares Verified 03/03/23 01:58 [From Darvocet-N 100] codeine AdvReac Unknown tight Verified 03/03/23 01:58 band around head and SOB gabapentin [From Neurontin] AdvReac Unknown Mental Verified 03/03/23 01:58 status change hydrocodone [From Vicodin] AdvReac Unknown Nightmares Verified 03/03/23 01:58 zolpidem [From Ambien] AdvReac Unknown Hallucinati Verified 03/03/23 01:58 ons Family History Father Myocardial infarction CVA (cerebral vascular accident) Surgical History History of abdominal hysterectomy History of appendectomy History of laparoscopic cholecystectomy History of partial mastectomy of right breast Social History Smoking Status: Never smoker alcohol intake: never substance use type: does not use ROS ROS ED Constitutional Constitutional ED: Denies chills or fever(s) ENT ENT ED: Reports other Details: Positive nosebleed ; Denies sore throat Cardiovascular Cardiovascular: Denies chest pain Respiratory/Chest Respiratory/Chest: Denies cough or dyspnea Gastrointestinal Gastrointestinal: Denies abdominal pain, diarrhea, nausea or vomiting Genitourinary Genitourinary ED: Denies dysuria Musculoskeletal Musculoskeletal: Denies myalgias Integumentary Denies rash Neurologic Neurologic: Denies headache(s) Hematologic/Lymphatic Hematologic/Lymphatic: Reports easy bleeding and easy bruising EXAM Physical Exam Const Vital Signs: 03/03/23 01:56 Temperature 96.6 F L Temperature Source Temporal Pulse Rate 100 Respiratory Rate 16 Blood Pressure 131/100 H Blood Pressure Mean 110 Pulse Ox 93 Oxygen Delivery Method Room Air Positive well nourished and well developed General Appearance ED: well developed; Negative for pallor HEENT HEENT Narrative: Patient has mild ooze of dark red blood from the right nostril. There is dried overflow blood in the left nostril and dried blood in the posterior pharynx. No septal hematoma noted Eyes PERRL and EOMs intact bilaterally General Eye ED: Negative for pale conjunctiva Neck supple Resp normal respiratory effort and clear to auscultation bilaterally Cardio regular rate and regular rhythm Extremity normal to inspection Neuro oriented x3 and CN's II-XII intact bilaterally Sensorium / Orientation: alert Psych mental status grossly normal Skin no rashes or lesions noted General Skin Exam: Negative for pallor MDM MDM MDM Narrative Medical decision making narrative: Patient presented to the ER hypertensive but has a past medical history of this and otherwise vitals are stable. Clinically she had anterior epistaxis from the right nostril that occurred because after blowing her nose she dislodged the scab/cauterization had been performed at the previous visit. Lidocaine with epinephrine and Afrin cotton balls were soaked and placed in the nose for 20 to 30 minutes. When these were removed there is no active bleeding out of the left nostril but the right nostril has persistent ooze of blood. Secondary to this a 7.5 cm rapid Rhino was placed into the right nostril cavity. After this was inflated the patient was watched for another 30 minutes to 1 hour. On reevaluation there is no active bleeding from the right nostril there is no overflow bleeding in the left nostril down the posterior pharynx. Therefore as the anterior post axis has been coagulated through the rapid Rhino and there is no signs of acute blood loss anemia or overflow bleeding she is otherwise safe for discharge. History & Record Review Discussion w/independent historian: Patient and Significant other Discharge Plan Triage Chief Complaint: Nosebleed ED Provider: Festus Love Dx/Rx/DC Orders Clinical Impression: Acute anterior epistaxis, Essential hypertension Instructions: ED Epistaxis (Adult) Prescriptions: No Action pantoprazole 40 mg tablet,delayed release (DR/EC) 40 mg PO DAILY aspirin [Adult Low Dose Aspirin] 81 mg tablet,delayed release (DR/EC) 81 mg PO DAILY citalopram 20 mg tablet 20 mg PO DAILY cholecalciferol (vitamin D3) 125 mcg (5,000 unit) tablet 125 mcg PO DAILY atorvastatin 40 mg Tablet 40 mg PO QHS Qty: 30 2RF metformin 500 mg Tablet 500 mg PO BIDCM Qty: 60 2RF clopidogrel 75 mg Tablet 75 mg PO DAILY Qty: 30 2RF Primary Care Provider: [place] Referrals: Elliot Celestin MD [Med Staff - Active Staff] - [place], MD [Primary Care Provider] - Activity Restrictions/Additional Instructions: Please follow-up with ENT for repeat evaluation of recurrent nosebleed and return to the ER should you have any further concerns Disposition Disposition: Home, Self Care Discharge Date/Time: 03/03/23 05:33
[2023-03-03 05:30] VITALS: PULSE 98; RESP 15; O2SAT 93
== END 2023-03-03 05:33 | disposition home or self-care (01) ==
PROVIDERS: Emergency Provider Emergency Medicine; PCP Family Medicine Geriatric Medicine; Visit Provider Emergency Medicine
DX: R04.0 Epistaxis (principal); I10 Essential (primary) hypertension; Z79.82 Long term (current) use of aspirin; Z79.02 Long term (current) use of 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/antiplatelets; Z79.84 Long term (current) use of oral hypoglycemic drugs; Z79.899 Other long term (current) drug therapy
CPT/HCPCS: 30901; 99282

== ENCOUNTER 2023-03-18 16:41 | Emergency (ER) | payer MEDICARE, SELFPAY ==
[2023-03-18 16:42] VITALS: BP 140/80; PULSE 70; RESP 16; TEMP 36.6; O2SAT 99; BMI 28.6
--- NOTE | 2023-03-18 16:57 | CT_ITS ---
STUDY: CT CERVICAL SPINE WITHOUT CONTRAST REASON FOR EXAM: Female, 78 years old. Trauma RADIATION DOSAGE (If Supplied By Facility): CTDIvol = ( 17.18 ) mGy, DLP = ( 331.33 ) mGycm TECHNIQUE: High resolution transaxial imaging was performed without contrast material. Sagittal and coronal images were reconstructed. Individualized dose optimization techniques were used for this CT. COMPARISON: None FINDINGS: No definite acute fracture/dislocation. The cervical junction is intact. C1-C2 articulation is intact. Curvature is within normal limits. There is normal alignment. Facet joints are intact at all levels bilaterally. No jumped facets. There is multilevel spondyloarthropathy. Multilevel degenerative disc disease seen. Multilevel loss of disc height. Multilevel posterior marginal osteophytes and disc bulges. Multilevel neural foraminal narrowing. Multilevel narrowing of the spinal canal. Visualized paraspinal soft tissues and structures are unremarkable. CT/Spine Cervical without Contras IMPRESSION: There is no definite acute fracture/dislocation. Degenerative changes. Electronically Signed: Gaurav Tian MD at 17:48 EDT ,
--- NOTE | 2023-03-18 16:57 | CT_ITS ---
STUDY: CT FACIAL BONES WITHOUT CONTRAST REASON FOR EXAM: Female, 78 years old. Trauma RADIATION DOSAGE (If Supplied By Facility): CTDIvol = ( 29.38 ) mGy, DLP = ( 518.07 ) mGycm TECHNIQUE: The patient was scanned in a multi detector CT scanner. Sagittal and coronal images were reconstructed. Individualized dose optimization techniques were used for this CT. COMPARISON: None. FINDINGS: Normal soft tissue structures. Normal orbital davis and orbital contents. Normal nasal bones and anterior nasal spine. Normal facial bones. There is no demonstrated fracture. Normal visualized paranasal sinuses. CT/Sinus/Facial Bone IMPRESSION: Normal unenhanced CT of the facial bones. Electronically Signed: Gaurav Tian MD at 17:46 EDT ,
--- NOTE | 2023-03-18 16:57 | CT_ITS ---
We are attempting to reach an attending provider to discuss findings. An addendum with communication details will be sent when the communication is complete. STUDY: CT BRAIN WITHOUT CONTRAST REASON FOR EXAM: Female, 78 years old. Trauma RADIATION DOSAGE (If Supplied By Facility): CTDIvol = ( 44.99 ) mGy, DLP = ( 779.24 ) mGycm TECHNIQUE: Transaxial CT imaging of the brain was performed without administration of intravenous contrast material. Individualized dose optimization techniques were used for this CT. COMPARISON: 02/27/2023 FINDINGS: Normal soft tissue structures. Normal calvarium. A small amount of subdural blood is seen along the meningeal reflection of the sphenoid, alongside the deep surface of the left temporal lobe. No other acute abnormality seen. There is mild cerebral atrophy with widening of the extra-axial spaces and ventricular dilatation. There are areas of decreased attenuation within the white matter tracts of the supratentorial brain, consistent with microvascular disease changes. There are bilateral lacunar infarcts of the basal ganglia and thalami. Normal brainstem. Normal cerebellum. There is no intracranial hemorrhage. There are no findings of an acute ischemic infarction. Normal visualized paranasal sinuses. CT/Brain/Head without Contrast IMPRESSION: Small subdural hematoma along the meningeal reflections of the left base of the brain. Moderate atrophy and white matter disease. Stable extensive lacunar infarcts. Electronically Signed: Gaurav Tian MD at 17:43 EDT ,
--- NOTE | 2023-03-18 17:20 | RAD_ITS ---
STUDY: X-RAY - RIGHT SHOULDER REASON FOR EXAM: Female, 78 years old. Trauma TECHNIQUE: 2 view(s) of the shoulder. COMPARISON: None. FINDINGS: Normal glenohumeral articulation. Normal acromioclavicular joint. Normal acromion. Normal humeral head and visualized proximal humerus. The soft tissue structures are unremarkable. There is no demonstrated fracture. Normal visualized pulmonary apex. RAD/Shoulder min 2 Views IMPRESSION: No definite acute or significant abnormality seen. Electronically Signed: Gaurav Tian MD at 18:02 EDT ,
--- NOTE | 2023-03-18 17:20 | RAD_ITS ---
STUDY: X-RAY - RIGHT KNEE REASON FOR EXAM: Female, 78 years old. Trauma TECHNIQUE: 4 view(s) of the knee. COMPARISON: None. FINDINGS: Normal visualized distal femur. Normal visualized proximal tibia and fibula. Normal proximal tibiofibular articulation. There is no demonstrated fracture. Normal medial femorotibial compartment. Normal lateral femorotibial compartment. Normal patellofemoral articulation. There is no demonstrated joint effusion. There are atherosclerotic calcifications. RAD/Knee 4 or More Views IMPRESSION: Normal x-ray examination of the knee. Electronically Signed: Gaurav Tian MD at 17:49 EDT ,
[2023-03-18] MEDS: Acetaminophen 325 MG Tablet 650 MG PO (17:37)
--- NOTE | 2023-03-18 17:59 | EKG12_ITS ---
Test Reason : CP Blood Pressure : / mmHG Vent. Rate : 062 BPM Atrial Rate : 062 BPM P-R Int : 180 ms QRS Dur : 082 ms QT Int : 418 ms P-R-T Axes : 025 -17 031 degrees QTc Int : 424 ms Normal sinus rhythm Normal ECG Confirmed by EUGENE RODRIGUES MD ([id number]), index editor TERRELL CHARLES ([id number]) on 03/19/2023 10:04:58 AM Referred By: PL Confirmed By:EUGENE RODRIGUES MD
--- NOTE | 2023-03-18 18:23 | EDS_ITS ---
HPI HPI - Fall History of Present Illness Chief Complaint: Fall Informant: patient and spouse/S.O. Narrative Narrative: Patient presents after a fall at home. She was walking to show her something. states it looks like she caught her toe on the edge of a couch arm that was somewhat sticking out into the floor. She states she was walking to see him. She is using a cane because of her recent stroke and she still has some right-sided weakness. She states she just suddenly fell forward. She never lost consciousness or had palpitations or chest pain. She hit her face on the ground. She has some soreness of her face and slight headache. No nausea vomiting. No new weakness or numbness. She is on Plavix. She had stopped aspirin but had actually taken an aspirin this morning because she had a very slight headache. She otherwise has been recovering actually quite well from her recent stroke. [facility] Medical History Anxiety Breast cancer Essential hypertension Fatty liver GERD (gastroesophageal reflux disease) CATHERINE (obstructive sleep apnea) Thoracic aortic aneurysm without rupture Home Medications cholecalciferol (vitamin D3) 125 mcg (5,000 unit) tablet 125 mcg PO DAILY vitamin 01/29/22 [History Last Taken 02/27/23] citalopram 20 mg tablet 20 mg PO DAILY mental health 01/29/22 [History Last Taken 02/27/23] aspirin 81 mg tablet,delayed release (Adult Low Dose Aspirin) 81 mg PO DAILY heart health 01/30/22 [History Last Taken 02/27/23] pantoprazole 40 mg tablet,delayed release 40 mg PO DAILY relfux 01/30/22 [History Last Taken 02/26/23] atorvastatin 40 mg tablet 40 mg PO QHS #30 tabs 03/01/23 [Rx Last Taken Unknown] clopidogrel 75 mg tablet 75 mg PO DAILY #30 tabs 03/01/23 [Rx Last Taken Unknown] metformin 500 mg tablet 500 mg PO BIDCM #60 tabs 03/01/23 [Rx Last Taken Unknown] Allergy/AdvReac Type Severity Reaction Status Date / Time terazosin [From Hytrin] Allergy Severe Face Verified 03/18/23 16:42 swelling iodine Allergy face Verified 03/18/23 16:42 swelling after scan acetaminophen AdvReac Severe Nightmares Verified 03/18/23 16:42 [From Darvocet-N 100] propoxyphene AdvReac Severe Nightmares Verified 03/18/23 16:42 [From Darvocet-N 100] codeine AdvReac Unknown tight Verified 03/18/23 16:42 band around head and SOB gabapentin [From Neurontin] AdvReac Unknown Mental Verified 03/18/23 16:42 status change hydrocodone [From Vicodin] AdvReac Unknown Nightmares Verified 03/18/23 16:42 zolpidem [From Ambien] AdvReac Unknown Hallucinati Verified 03/18/23 16:42 ons Family History Father Myocardial infarction CVA (cerebral vascular accident) Surgical History History of abdominal hysterectomy History of appendectomy History of laparoscopic cholecystectomy History of partial mastectomy of right breast Social History Smoking Status: Never smoker alcohol intake: never substance use type: does not use ROS ROS ED ROS Narrative A complete review of systems was performed and is negative except as documented in the history of present illness. Some specific details below. Constitutional: No recent fevers or chills. She has not been feeling ill recently EYE: No visual complaints or pain. ENT: No difficulty swallowing. No swelling. No pain. She does have a contusion to her right face. No epistaxis. No oral bleeding. CV: No chest pain or palpitations. Respiratory: No dyspnea. No hemoptysis. No difficulty taking breaths. GI: No nausea vomiting now or before the fall. : No frequency dysuria or hematuria. Musculoskeletal: She has mild soreness of her right knee and right shoulder but no real pain with moving and she can still bear weight and move her arm well. Skin: Slight abrasions to right knee Neuro: No new weakness or numbness. Endocrine: No polyuria or polydipsia. EXAM Physical Exam Narrative Exam Narrative: Patient awake alert no acute distress. She gives a very good history. HEENT does show contusion toward the right cheek. But no step-off. This may have been somewhat from the glasses she had been wearing. No epistaxis. No jaw tenderness. Eyes show normal range of motion no subconjunctival hemorrhage or pupillary abnormality. Neck is supple and not tender. But patient does feel as though something clicked in it when she fell. But is not hurting now. Lungs are clear bilaterally. No chest wall tenderness. Heart is regular. I hear no murmur. Pulses are equal x4. Abdomen is soft and nontender. Spine shows no cervical thoracic or lumbosacral area tenderness. Extremities: She has some soreness of the right shoulder but no obvious pain with motion or limitation of motion. I do not get any tenderness or contusions. No tenderness of all the way down both the upper extremities. I rotate her hips without any pain. Slight abrasion of the front of the right knee. But no limitation of motion. Neurologically she is awake and alert. She has some residuals relative weakness on the right but overall quite mild. She is oriented x3. Const Vital Signs: 03/18/23 16:42 03/18/23 17:17 03/18/23 19:00 Temperature 97.8 F Temperature Source Temporal Pulse Rate 70 61 Respiratory Rate 16 16 Respiratory Effort Normal Non-Labored Blood Pressure 140/80 H 152/102 H Blood Pressure Mean 100 118 Pulse Ox 99 93 Oxygen Delivery Method Room Air Room Air Oxygen Flow Rate (L/min) 03/18/23 20:11 03/18/23 20:39 03/18/23 22:09 Temperature 97.9 F Temperature Source Pulse Rate 69 74 74 Respiratory Rate 35 H 21 H 16 Respiratory Effort Blood Pressure 146/104 H 153/107 H 151/107 H Blood Pressure Mean 118 122 121 Pulse Ox 95 96 96 Oxygen Delivery Method Nasal Cannula Nasal Cannula Oxygen Flow Rate (L/min) 2 2 MDM MDM MDM Narrative Medical decision making narrative: My independent interpretation of her x-rays of the right knee and shoulder show no acute process. This is similar to final reading. My independent interpretation of the CT of the neck and face show no acute process. This is similar to final reading. My independent interpretation the patient's CT of the head does show what appears to be a small bleed on the left side seen best in sagittal or coronal images. Final reading does verify a small subdural hematoma along the meningeal reflections of the left base of the brain. CBC shows no acute process. PT is normal. PTT is normal. Electrolytes showed mildly low potassium that should self correct. Liver function test showed no acute process Troponin is negative I discussed the case with Dr. Mcgregor at [facility] emergency department. He will accept the patient in transfer. My concern is that this patient is on Plavix and took aspirin today before arrival. She has a traumatic subdural bleed. I do not think by history she was having this prior to her fall. It does look fresh on the images. We do not have neurosurgery capability here so I think it is appropriate she goes to a more comprehensive trauma center. I explained this to the patient and her . She has no headache at all after the Tylenol. She feels well. She is not developing any neurologic symptoms. Heart rate respiratory rate blood pressure and saturations are remaining stable. I also reviewed her past images because there is a report on her chart about thoracic aneurysm. She had a CT in January of this year that showed an ascending aorta at just approximately 4 cm at the high limit of normal for her age. There is no sign of any acute dissection or other issues related to this. She has no symptoms related to this. I do not think it needs acute reimaging at this time. Patient was awaiting ambulance for transport. She started to get a tightness across her lower chest. She felt slightly short of breath. No nausea. No diaphoresis. I went and checked the patient. She actually looked very comfortable. She was going to the bathroom. She got up and went to bed. Her lungs are clear. She is not toxic or pale looking at all. Peripheral pulses are still excellent. Heart sounds are normal. We did do an EKG that was essentially unchanged. This was while she was having symptoms. We also did a stat portable chest x-ray. My independent interpretation of her chest x-ray shows mild cardiomegaly. Aorta looks very similar as does the rest of the chest x-ray to her chest x-ray from 02/04/2023. I rechecked the patient. She states that the symptoms are really gone now and she feels back to normal. We did send off a repeat troponin. Lab Data Attestation: I reviewed the patient's lab results. Labs: Laboratory Results - last 24 hr 03/18/23 03/18/23 03/18/23 18:16 18:16 18:16 WBC 7.8 RBC 3.95 L Hgb 12.3 Hct 37.2 MCV 94.2 MCH 31.1 MCHC 33.1 RDW Std Deviation 49.1 H RDW Coeff of Jeffrey 14.4 Plt Count 190 MPV 10.8 Immature Gran % (Auto) 0.300 Neut % (Auto) 53.8 Lymph % (Auto) 34.6 [place] % (Auto) 10.0 Eos % (Auto) 0.8 Baso % (Auto) 0.5 Absolute Neuts (auto) 4.2 Absolute Lymphs (auto) 2.69 Nucleated RBC % 0 PT 12.8 INR 1.0 APTT 28.0 Sodium 137 Potassium 3.0 L Chloride 102 Carbon Dioxide 30.0 Anion Gap 5 BUN 22 H Creatinine 0.89 Estim Creat Clear Calc 41.20 Est GFR (MDRD) Af Amer 79 Est GFR (MDRD) Non-Af 66 BUN/Creatinine Ratio 24.8 H Glucose 100 Calcium 8.9 Total Bilirubin 0.30 AST 21 ALT 40 Alkaline Phosphatase 116 Troponin I High Sens 10 Total Protein 6.8 Albumin 3.7 Globulin 3.1 Albumin/Globulin Ratio 1.2 Urine Color Urine Clarity Urine pH Ur Specific [place] Urine Protein Urine Glucose (UA) Urine Ketones Urine Occult Blood Urine Nitrite Urine Bilirubin Urine Urobilinogen Ur Leukocyte Esterase Urine RBC Urine WBC Ur Squamous Epith Cells Urine Bacteria Urine Mucus 03/18/23 03/18/23 19:30 20:30 WBC RBC Hgb Hct MCV MCH MCHC RDW Std Deviation RDW Coeff of Jeffrey Plt Count MPV Immature Gran % (Auto) Neut % (Auto) Lymph % (Auto) [place] % (Auto) Eos % (Auto) Baso % (Auto) Absolute Neuts (auto) Absolute Lymphs (auto) Nucleated RBC % PT INR APTT Sodium Potassium Chloride Carbon Dioxide Anion Gap BUN Creatinine Estim Creat Clear Calc Est GFR (MDRD) Af Amer Est GFR (MDRD) Non-Af BUN/Creatinine Ratio Glucose Calcium Total Bilirubin AST ALT Alkaline Phosphatase Troponin I High Sens 11 Total Protein Albumin Globulin Albumin/Globulin Ratio Urine Color Straw Urine Clarity Clear Urine pH 7.0 Ur Specific [place] 1.010 Urine Protein Negative Urine Glucose (UA) Normal Urine Ketones Negative Urine Occult Blood Negative Urine Nitrite Negative Urine Bilirubin Negative Urine Urobilinogen Normal Ur Leukocyte Esterase Negative Urine RBC 0 SEEN Urine WBC 0 SEEN Ur Squamous Epith Cells 0-5 SEEN Urine Bacteria 0 SEEN Urine Mucus 0 SEEN Radiography Diagnostic Testing: Clinical Impression(s) from Imaging Studies Brain CT 03/18/23 16:57 IMPRESSION: Small subdural hematoma along the meningeal reflections of the left base of the brain. Moderate atrophy and white matter disease. Stable extensive lacunar infarcts. Electronically Signed: Gaurav Tian MD at 17:43 EDT , ADDENDUM: 03/18/23 1757 IMPRESSION: Small subdural hematoma along the meningeal reflections of the left base of the brain. Moderate atrophy and white matter disease. Stable extensive lacunar infarcts. N.B. : The above Results were Read Back by Gaurav Tian MD to Rusty Henderson MD, and understanding confirmed on 03/18/2023 17:50:47 (ET). Electronically Signed: Gaurav Tian MD at 17:43 EDT , Cervical Spine CT 03/18/23 16:57 IMPRESSION: There is no definite acute fracture/dislocation. Degenerative changes. Electronically Signed: Gaurav Tian MD at 17:48 EDT , Facial/Sinus 03/18/23 16:57 IMPRESSION: Normal unenhanced CT of the facial bones. Electronically Signed: Gaurav Tian MD at 17:46 EDT , Knee X-Ray 03/18/23 17:20 IMPRESSION: Normal x-ray examination of the knee. Electronically Signed: Gaurav Tian MD at 17:49 EDT , Shoulder X-Ray 03/18/23 17:20 IMPRESSION: No definite acute or significant abnormality seen. Electronically Signed: Gaurav Tian MD at 18:02 EDT , Chest X-Ray 03/18/23 20:30 IMPRESSION: ASHD. No acute cardiopulmonary pathology Electronically Signed: Terrence Arreguin MD at 20:49 EDT , EKG Initial EKG: Comments: My independent interpretation of the EKG done for fall/trauma shows a normal sinus rhythm with overall rate of 60. There is no ectopy noted on this EKG either supraventricular or ventricular. There is no ST elevation or depression. Normal MA interval, QRS duration and QTc. This is an overall normal EKG. Management Discussion w/another healthcare provider: Client Application Support Engineer Critical Care Time Critical Care Time: Yes Critical care time (excluding procedures): 30-74 minutes, Discussing w/Patient &/or Family/E Commerce Strategist, Discussing w/Consultants, Arranging Admission or Transfer, Performing Direct Patient Care at Bedside and - (38 min. Repeat evaluations. Arranging transfer. Discussing CT results. Risk of decompensation from intracranial bleeding.) Discharge Plan Triage Chief Complaint: Fall ED Provider: Rusty Henderson Dx/Rx/DC Orders Clinical Impression: Acute subdural hematoma, Fall from slip, trip, or stumble, Coagulopathy, Contusion of knee, right, Contusion of right shoulder, History of recent stroke Prescriptions: No Action pantoprazole 40 mg tablet,delayed release (DR/EC) 40 mg PO DAILY aspirin [Adult Low Dose Aspirin] 81 mg tablet,delayed release (DR/EC) 81 mg PO DAILY citalopram 20 mg tablet 20 mg PO DAILY cholecalciferol (vitamin D3) 125 mcg (5,000 unit) tablet 125 mcg PO DAILY atorvastatin 40 mg Tablet 40 mg PO QHS Qty: 30 2RF metformin 500 mg Tablet 500 mg PO BIDCM Qty: 60 2RF clopidogrel 75 mg Tablet 75 mg PO DAILY Qty: 30 2RF Primary Care Provider: [place] Chi Referrals: [place] Chi, MD [Primary Care Provider] - Disposition Disposition: Acute Care Hospital
[2023-03-18 18:27] LABS: Absolute Lymphocyte Count 2.69 X10^3/uL (0.83-4.51); Absolute Neutrophil Count 4.2 X10^3/uL (2.0-7.7); Basophil# 0.04 X10^3/uL; Basophil% 0.5 % (0-1); Eosinophil# 0.06 X10^3/uL; Eosinophils% 0.8 % (0-5); Hematocrit 37.2 % (37-47); Hemoglobin 12.3 g/dL (12.0-15.0); Lymphocyte # 2.69 X10^3/ul (0.83-4.51); Lymphocyte % 34.6 % (19-41); Mean Corp Hgb Conc 33.1 g/dL (32-36); Mean Corpuscular Hgb 31.1 pg (27.0-32.0); Mean Corpuscular Volume 94.2 fL (81-99); Mean Platelet Vol. 10.8 fl (6.2-12.0); Monocyte# 0.78 X10^3/uL; NRBC Flagged by Analyzer 0 % (0-5); Neutrophil # 4.19 X10^3/uL (2.7-7.7); Neutrophil % 53.8 % (47-70); Platelet Count 190 K/mm3 (150-450); RBC Distribution Width CV 14.4 % (11.6-14.6); RBC Distribution Width SD 49.1 fl (35.1-43.9); Red Blood Count 3.95 M/mm3 (4.2-5.4); White Blood Count 7.8 K/mm3 (4.4-11.0)
[2023-03-18 18:43] LABS: Prothrombin Time (Protime)PT. 12.8 SECONDS (11.7-14.9)
[2023-03-18 18:59] LABS: ALB/GLOB Ratio 1.2 RATIO (0.9-2.4); AST(SGOT) 21 U/L (15-37); Alanine Aminotransfer ALT/SGPT 40 U/L (13-56); Albumin, Serum 3.7 g/dL (3.2-5.0); Alkaline Phosphatase 116 U/L (45-117); Anion Gap 5 (5-15); BUN 22 mg/dL (7-18); BUN/Creat Ratio 24.8 RATIO (10-20); Calcium,Total 8.9 mg/dL (8.5-10.1); Chloride 102 mmol/L (98-107); Creatinine, Serum 0.89 mg/dL (0.55-1.02); EST Glomerular Filtration Rate 66 mL/min (>60); Est Glom Filt Rate - Afr Amer 79 mL/min (>60); Globulin 3.1 g/dL (2.2-4.2); Glucose 100 mg/dL (74-106); Protein, Total 6.8 g/dL (6.4-8.2); Sodium Level 137 mmol/L (136-145); Troponin-I HS 10 pg/mL (3.0-54.0)
[2023-03-18 19:00] VITALS: BP 152/102; PULSE 61; RESP 16; O2SAT 93
[2023-03-18 19:44] LABS: Bacteria 0 SEEN /hpf (None Seen); Mucous, Urine 0 SEEN /hpf (<or=2+); Red Blood Cells-Urine 0 SEEN /hpf (0-5); White Blood Cells 0 SEEN /hpf (0-5)
[2023-03-18 19:45] LABS: Color, Urine Straw (Yellow); Glucose, Dipstick Normal (Normal); Ketone-Dipstick Negative (Negative); Leukocyte Esterase-Dipstick Negative /ul (Negative); Nitrite-Dipstick Negative (Negative); Occult Blood-Urine Negative /ul (Negative); Protein-Dipstick Negative (Negative); Urine Bilirubin Dipstick Negative (Negative); Urine Clarity Clear (Clear); Urine Urobilinogen Normal (Normal)
[2023-03-18 19:58] LABS: Squamous Epithelial Cells - UA 0-5 SEEN /hpf (5-10)
--- NOTE | 2023-03-18 20:10 | EKG12_ITS ---
Test Reason : Blood Pressure : / mmHG Vent. Rate : 060 BPM Atrial Rate : 060 BPM P-R Int : 174 ms QRS Dur : 076 ms QT Int : 408 ms P-R-T Axes : 027 -16 026 degrees QTc Int : 408 ms Normal sinus rhythm Normal ECG Confirmed by LILIA DYE, EUGENE ([id number]), copy editor TERRELL CHARLES ([id number]) on 03/19/2023 10:06:08 AM Referred By: Confirmed By:EUGENE RODRIGUES MD
[2023-03-18 20:11] VITALS: BP 146/104; PULSE 69; RESP 35; O2SAT 95
--- NOTE | 2023-03-18 20:30 | RAD_ITS ---
STUDY: X-RAY CHEST REASON FOR EXAM: Female, 78 years old. Chest pain, trauma TECHNIQUE: AP portable COMPARISON: None. FINDINGS: The lungs are clear and expanded. There is no demonstrated pleural abnormality. Normal size heart. Normal mediastinum and renee. Normal visualized pulmonary arteries. Mildly calcified aortic arch and descending thoracic aorta. Dorsal spine demonstrates scoliosis and degenerative change. Normal visualized ribs, and clavicles. Degenerative changes of the shoulder joints. Surgical clips are seen in the right axilla There is no demonstrated abnormality of the visualized soft tissue structures of the upper abdomen. RAD/Chest 1 View (Portable) IMPRESSION: ASHD. No acute cardiopulmonary pathology Electronically Signed: Terrence Arreguin MD at 20:49 EDT ,
[2023-03-18 20:39] VITALS: BP 153/107; PULSE 74; RESP 21; O2SAT 96
--- NOTE | 2023-03-18 20:57 | ED.RN ---
gold tone lida necklace and 2 gold tone rings taken home by the
[2023-03-18 21:06] LABS: Troponin-I HS 11 pg/mL (3.0-54.0)
[2023-03-18 22:09] VITALS: BP 151/107; PULSE 74; RESP 16; TEMP 36.6; O2SAT 96
== END 2023-03-18 22:11 | disposition short-term general hospital (02) ==
PROVIDERS: Emergency Provider Emergency Medicine; PCP Family Medicine Geriatric Medicine; Visit Provider Emergency Medicine
DX: S06.5X0A Traumatic subdural hemorrhage without loss of consciousness, initial encounter (principal); I10 Essential (primary) hypertension; Z79.02 Long term (current) use of 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/antiplatelets; Z79.82 Long term (current) use of aspirin; S80.01XA Contusion of right knee, initial encounter; S40.011A Contusion of right shoulder, initial encounter; W01.0XXA Fall on same level from slipping, tripping and stumbling without subsequent striking against object, initial encounter
CPT/HCPCS: 70450; 70486; 71045; 72125; 73030; 73564; 80053; 81001; 84484; 85025; 85610; 85730; 93005; 99284; A4216

== ENCOUNTER → 2023-03-27 | Outpatient (CLI) | payer MEDICARE, SELFPAY ==
[2023-03-27 17:32] LABS: Anion Gap 8 (5-15); BUN 19 mg/dL (7-18); BUN/Creat Ratio 22.5 RATIO (10-20); Calcium,Total 9.1 mg/dL (8.5-10.1); Chloride 102 mmol/L (98-107); Creatinine, Serum 0.84 mg/dL (0.55-1.02); EST Glomerular Filtration Rate 69 mL/min (>60); Est Glom Filt Rate - Afr Amer 84 mL/min (>60); Glucose 97 mg/dL (74-106); Potassium 3.6 mmol/L (3.5-5.1); Sodium Level 137 mmol/L (136-145)
== END | disposition home or self-care (01) ==
LOC: POLAB3 16:55
PROVIDERS: PCP Family Medicine Geriatric Medicine; Visit Provider Family Medicine Geriatric Medicine
DX: E11.65 Type 2 diabetes mellitus with hyperglycemia (principal)
CPT/HCPCS: 36415; 80048

== ENCOUNTER → 2023-04-14 | Outpatient (CLI) | payer MEDICARE, SELFPAY ==
[2023-04-14 15:45] LABS: Absolute Neutrophil Count 5.1 X10^3/uL (2.0-7.7); Basophil# 0.07 X10^3/uL; Basophil% 0.9 % (0-1); Eosinophil# 0.08 X10^3/uL; Hematocrit 41.2 % (37-47); Hemoglobin 13.2 g/dL (12.0-15.0); Lymphocyte % 23.3 % (19-41); Mean Corpuscular Hgb 31.1 pg (27.0-32.0); Mean Corpuscular Volume 96.9 fL (81-99); Mean Platelet Vol. 10.9 fl (6.2-12.0); Monocyte# 0.65 X10^3/uL; Monocyte% 8.4 % (0-10); NRBC Flagged by Analyzer 0 % (0-5); Neutrophil # 5.09 X10^3/uL (2.7-7.7); Neutrophil % 65.9 % (47-70); Platelet Count 200 K/mm3 (150-450); RBC Distribution Width CV 13.6 % (11.6-14.6); RBC Distribution Width SD 48.7 fl (35.1-43.9); Red Blood Count 4.25 M/mm3 (4.2-5.4); White Blood Count 7.7 K/mm3 (4.4-11.0)
[2023-04-14 16:31] LABS: ALB/GLOB Ratio 1.1 RATIO (0.9-2.4); AST(SGOT) 25 U/L (15-37); Alanine Aminotransfer ALT/SGPT 41 U/L (13-56); Albumin, Serum 3.7 g/dL (3.2-5.0); Alkaline Phosphatase 125 U/L (45-117); Anion Gap 7 (5-15); BUN 15 mg/dL (7-18); BUN/Creat Ratio 16.1 RATIO (10-20); Chloride 103 mmol/L (98-107); Creatinine, Serum 0.93 mg/dL (0.55-1.02); EST Glomerular Filtration Rate 62 mL/min (>60); Est Glom Filt Rate - Afr Amer 75 mL/min (>60); Globulin 3.4 g/dL (2.2-4.2); Glucose 81 mg/dL (74-106); Potassium 3.6 mmol/L (3.5-5.1); Protein, Total 7.1 g/dL (6.4-8.2); Sodium Level 136 mmol/L (136-145); Thyroid Stim Hormone (TSH) 1.18 uIU/mL (0.358-3.74)
[2023-04-14 16:38] LABS: Vitamin D,25 Hydroxy 29.8 ng/mL
[2023-04-14 16:45] LABS: Vitamin B12 513 pg/mL (211-911)
== END | disposition home or self-care (01) ==
PROVIDERS: PCP Family Medicine Geriatric Medicine; Visit Provider Family Medicine Geriatric Medicine
DX: E11.65 Type 2 diabetes mellitus with hyperglycemia (principal); R53.83 Other fatigue; E55.9 Vitamin D deficiency, unspecified
CPT/HCPCS: 36415; 80053; 82306; 82607; 84443; 85025

== ENCOUNTER → 2023-05-14 | Outpatient (CLI) | payer MEDICARE, SELFPAY ==
--- NOTE | 2023-05-14 17:41 | CT_ITS ---
EXAM: CT CHEST WITHOUT INTRAVENOUS CONTRAST CLINICAL INDICATION: Adenopathy. TECHNIQUE: Helically acquired images were obtained of the chest without intravenous contrast. This CT exam was performed using one or more of the following dose reduction techniques: automated exposure control, adjustment of the mA and/or kV according to patient size, and/or use of iterative reconstruction technique. CONTRAST: None. RADIATION DOSE: CTDIvol = 16.15 mGy, DLP = 508.36 mGy-cm COMPARISON: CTA chest 02/04/2023. FINDINGS: LUNGS AND PLEURAL SPACES: No suspicious pulmonary nodules. Minimal peripheral interlobular septal thickening in the superior lingular segment of the left upper lobe with few centrilobular groundglass opacities. No pleural effusion or thickening. No pneumothorax. HEART: Mild upper pericardial fluid in between the ascending thoracic aorta and right main pulmonary artery and anterior to the ascending aorta but behind the pericardial sac. This is unchanged. Mild cardiomegaly. Calcified plaques in the left main coronary artery and the LAD branch of the left coronary artery. No calcified plaques and circumflex branch and right coronary artery. Calcified plaques in the left aortic valve leaflet. MEDIASTINUM: Unremarkable. Esophagus is unremarkable. No hiatal hernia. No lymphadenopathy in both axillae. No mediastinal or hilar lymphadenopathy. THYROID: Unremarkable. No thyroid lesions. BONES/JOINTS: Unremarkable. No suspicious lytic or blastic abnormality. SOFT TISSUES: Surgical clips in the right axilla/right lateral chest wall were present previously. VASCULATURE: Mild aneurysmal dilatation of the ascending thoracic aorta with a diameter of 4.3 cm versus 3.3 cm for the tortuous descending thoracic aorta.. CT/Chest without Contrast IMPRESSION: 1. No CT evidence of lymphadenopathy in the axilla, lateral chest wall, mediastinum and renee. 2. Small chronic loculated fluid inside the upper pericardial sac in between the ascending thoracic aorta and the right main pulmonary artery and anterior to the ascending thoracic aorta. Etiology is unknown but this is unchanged since 02/04/2023. 3. Cardiomegaly and calcified plaques in the left main coronary artery and LAD branch are unchanged. 4. Mild aneurysmal dilatation of the ascending thoracic aorta with a diameter of 4.3 cm versus 3.3 cm for the tortuous descending thoracic aorta. This is unchanged. 5. No significant interval change when compared to 02/04/2023. Electronically Signed: Vinh Lamar MD at 14:19 EDT ,
--- NOTE | 2023-05-14 17:41 | CT_ITS ---
EXAM: CT HEAD WITHOUT INTRAVENOUS CONTRAST CLINICAL INDICATION: PAIN TECHNIQUE: Multiple axial images were obtained of the head without intravenous contrast. This CT exam was performed using one or more of the following dose reduction techniques: automated exposure control, adjustment of the mA and/or kV according to patient size, and/or use of iterative reconstruction technique. CONTRAST: None. RADIATION DOSE: CTDIvol = 44.99 mGy, DLP = 779.24 mGy-cm COMPARISON: CT head without contrast 03/18/2023. FINDINGS: BRAIN AND EXTRA-AXIAL SPACES: Confluent hypodensities in the anterior periventricular white matter, right greater than left, are chronic white matter ischemic changes. Old lacunar cystic infarct in both anterior periventricular white matter. Old lacunar cystic infarct in the right anterior putamen. No intra- or extra-axial hemorrhage. No intracranial mass or mass effect. Posterior fossa structures are unremarkable. No hydrocephalus. Basal cisterns are patent. BONES/JOINTS: Unremarkable. No discrete lytic or blastic abnormalities. SINUSES: Unremarkable as visualized. Clear. MASTOID AIR CELLS: Unremarkable. Clear. ORBITS: Visualized globes, extraocular muscles, optic nerves and retrobulbar fat appear unremarkable. CT/Brain/Head without Contrast IMPRESSION: 1. No CT evidence of intracranial bleeding, acute infarct or acute intracranial abnormality. 2. Old lacunar cystic infarcts in both anterior periventricular white matter and right anterior putamen. 3. Chronic anterior periventricular white matter ischemic changes in both cerebral hemispheres, right greater than left. 4. No significant interval change when compared to 03/18/2023. Electronically Signed: Vinh Lamar MD at 9:58 EDT ,
== END | disposition home or self-care (01) ==
LOC: CT 17:37
PROVIDERS: PCP Family Medicine Geriatric Medicine; Referring Provider Family Medicine Geriatric Medicine; Visit Provider Family Medicine Geriatric Medicine
DX: R59.0 Localized enlarged lymph nodes (principal)
CPT/HCPCS: 70450; 71250

== ENCOUNTER 2023-05-30 16:48 | Emergency (ER) | payer MEDICARE, SELFPAY ==
[2023-05-30 16:50] VITALS: BP 128/85; PULSE 91; RESP 18; TEMP 35.9; O2SAT 93
--- NOTE | 2023-05-30 18:34 | CT_ITS ---
STUDY: CT BRAIN WITHOUT CONTRAST REASON FOR EXAM: Female, 78 years old. head trauma RADIATION DOSAGE (If Supplied By Facility): CTDIvol = ( 44.99 ) mGy, DLP = ( 1365.98 ) mGycm TECHNIQUE: Transaxial CT imaging of the brain was performed without administration of intravenous contrast material. Individualized dose optimization techniques were used for this CT. COMPARISON: 05/14/2023. FINDINGS: Normal soft tissue structures. Normal calvarium. There is mild cerebral atrophy with widening of the extra-axial spaces and ventricular dilatation. There are areas of decreased attenuation within the white matter tracts of the supratentorial brain, consistent with microvascular disease changes. There is no intracranial hemorrhage. There are no findings of an acute ischemic infarction. Chronic basal ganglia lacunar infarcts bilaterally. Normal visualized paranasal sinuses. CT/Brain/Head without Contrast IMPRESSION: No acute findings. Chronic basal ganglia lacunar infarcts. Microvascular ischemic changes. Atrophy. Electronically Signed: Beata Owusu MD at 19:38 EDT Reading Location ID and State: [id number] / Tel , Service support ,
--- NOTE | 2023-05-30 18:34 | CT_ITS ---
INDICATION: neck injury EXAMINATION: CT CERVICAL SPINE - CT Spine Cervical W/O Contrast Injection TECHNIQUE: Helically acquired images were obtained of the cervical spine. 2D reformatted images were reviewed. A radiation dose optimization technique was used for this scan. IV Contrast dosage and agent: None. RADIATION DOSAGE (If Supplied By Facility): CTDIvol = ( 26.47 ) mGy, DLP = ( 1365.98 ) mGycm COMPARISON: 05/14/2023. FINDINGS: VERTEBRAE: No fracture or traumatic subluxation. No discrete lytic or blastic abnormality. Normal alignment. Normal craniocervical junction and cervicothoracic junction. DISCS and SPINAL CANAL: No critical stenosis. Disc space narrowing at C5-6 and C6-7. NECK SOFT TISSUES: No prevertebral soft tissue swelling. There is no cervical adenopathy. LUNG APICES: Clear. 4.2 cm ascending aortic aneurysm. No change from the prior study. Mild pericardial fluid in the superior mediastinum, unchanged from the prior study. CT/Spine Cervical without Contras IMPRESSION: No evidence of acute cervical spinal fracture. Ascending aortic aneurysm. Pericardial fluid in the superior mediastinum, unchanged. Electronically Signed: Beata Owusu MD at 20:00 EDT Reading Location ID and State: [id number] / Tel , Service support ,
--- NOTE | 2023-05-30 19:05 | RAD_ITS ---
INDICATION: Injury/Pain EXAMINATION/TECHNIQUE: X-RAY - XR Spine Thoracic 3 Views COMPARISON: FINDINGS: VERTEBRAE: Preserved vertebral body height. No fracture. No spondylolisthesis. Preservation of the normal thoracic kyphosis. No significant facet arthropathy. DISCS: Disc spaces are maintained. INCLUDED CHEST/ABDOMEN: No acute abnormalities. RAD/Thoracic Spine 2 Views IMPRESSION: No evidence of thoracic spinal fracture or spondylolisthesis. Electronically Signed: Beata Owusu MD at 19:52 EDT Reading Location ID and State: [id number] / Tel , Service support ,
[2023-05-30 19:33] VITALS: BP 135/87; PULSE 70; RESP 16; O2SAT 95
[2023-05-30 19:34] VITALS: BMI 29.0
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
[2023-05-30] MEDS: Lidocaine 5% Patch 1 PATCH TOPICAL (21:43)
== END 2023-05-30 21:50 | disposition home or self-care (01) ==
PROVIDERS: Emergency Provider Emergency Medicine; PCP Family Medicine Geriatric Medicine; Visit Provider Emergency Medicine
DX: S13.4XXA Sprain of ligaments of cervical spine, initial encounter (principal); I69.351 Hemiplegia and hemiparesis following cerebral infarction affecting right dominant side; I71.21 Aneurysm of the ascending aorta, without rupture; V89.2XXA Person injured in unspecified motor-vehicle accident, traffic, initial encounter; R51.9 Headache, unspecified; I10 Essential (primary) hypertension; G47.33 Obstructive sleep apnea (adult) (pediatric); K21.9 Gastro-esophageal reflux disease without esophagitis; Z79.02 Long term (current) use of 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/antiplatelets; Z79.82 Long term (current) use of aspirin; Z79.84 Long term (current) use of oral hypoglycemic drugs; Z79.899 Other long term (current) drug therapy
CPT/HCPCS: 70450; 72070; 72125; 99283

== ENCOUNTER → 2023-08-08 | Outpatient (CLI) | payer MEDICARE, SELFPAY | END | disposition home or self-care (01) | PROVIDERS: PCP Family Medicine Geriatric Medicine; Referring Provider Family Medicine Geriatric Medicine; Visit Provider Family Medicine Geriatric Medicine | DX: R68.83 Chills (without fever) (principal) | CPT/HCPCS: 87635; 87804; 87807; C9803 ==

== ENCOUNTER → 2023-10-27 | Outpatient (CLI) | payer MEDICARE, SELFPAY ==
--- OUTSIDE RECORDS SUMMARY | 2023-10-27 13:44 | XMS RPT_ITS | CCD ---
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 Name Role Phone Stephanie Cuellar Chi Primary Care Provider DARRICK KIM Referring Unavailable BISI, STEPHANIE CHI Primary Care Unavailable [facility] Referring Un available JUSTIN GOODEN Attending Unavailable BISI, STEPHANIE CHI Primary Care Unavailable LAYO BENSON Attending Unavailable SHANNON ESCOBAR Admitting Unavailable [employer] Consulting Unavailable BISI, STEPHANIE CHI Primary Care Unavailable Allergies Allergy Classification Reported Allergen(s) Allergy Type Date of Onset Reaction(s) Facility (4 sources) Acetaminophen / HYDROcodone; Translations: [HYDROCODONE-ACETAMI NOPHEN] Drug Allergy 05-18-20 08 Intolerance [facility] Work Phone: (4 sources) Codeine; Translations: [CODEINE] Drug Allergy 04-03-20 06 [facility] (4 sources) gabapentin; Translations: [GABAPENTIN] Drug Allergy 03-08-20 14 Mental Status Change [facility] (4 sources) Iodine; Translations: [IODINE] Drug Allergy 04-03-20 06 Other: See Comments [facility] Work Phone: (4 sources) Sulfamethoxazole / Trimethoprim; Translations: [SULFAMETHOXAZOLE-TR IMETHOPRIM] Drug Allergy 12-01-19 20 Rash [facility] Work Phone: (4 sources) Terazosin; Translations: [TERAZOSIN HCL] Drug Allergy 04-03-20 06 [facility] (4 sources) zolpidem; Translations: [ZOLPIDEM TARTRATE] Drug Allergy 09-24-19 07 [facility] (4 sources) Propoxyphene N-Acetaminophen; Translations: [PROPOXYPHENE N-ACETAMINOPHEN] Propensity to adverse reactions 05-18-20 08 Intolerance [facility] Work Phone: Medications Completed/Discontinued Medications Medication Drug Class(es) Dates Sig (Normalized) Sig (Original) atorvastatin 40 mg oral tablet (2 sources) HMG-CoA Reductase Inhibitor Start: 03-01-2023 take 1 tablet by mouth once daily atorvastatin (LIPITOR) 40 mg tablet Take 1 tablet by mouth once daily. 0 03/01/2023 Active Problems Problem Classification Problem Date Documented Date Episodic/Chronic Acute cerebrovascular disease (8 sources) Hemorrhage into subdural space of neuraxis; Translations: [Nontraumatic subdural hemorrhage, unspecified] Onset: 03-19-2023 Chronic Anxiety disorders (3 sources) Generalized anxiety disorder; Translations: [Generalized anxiety disorder] Onset: 09-24-2006 09-24-2006 Chronic Aortic; peripheral; and visceral artery aneurysms (3 sources) Ascending aorta dilatation; Translations: [Thoracic aortic ectasia] Onset: 09-04-2017 09-04-2017 Chronic Cancer of breast (3 sources) Malignant neoplasm of upper-outer quadrant of female breast; Translations: [Malignant neoplasm of upper-outer quadrant of right female breast] Onset: 04-13-2008 09-03-2017 Chronic E Codes: Fall (3 sources) Fall; Translations: [Unspecified fall, initial encounter] Onset: 03-20-2023 03-20-2023 Episodic Esophageal disorders (3 sources) Gastroesophageal reflux disease; Translations: [Gastro-esophageal reflux disease without esophagitis] 04-03-2006 Chronic Essential hypertension (3 sources) Essential hypertension; Translations: [Essential (primary) hypertension] Onset: 09-07-2019 09-07-2019 Chronic Fluid and electrolyte disorders (4 sources) Hyponatremia; Translations: [Hypo-osmolality and hyponatremia] Onset: 03-20-2023 03-20-2023 Episodic Menopausal disorders (3 sources) Atrophy of vagina; Translations: [Postmenopausal atrophic vaginitis] Onset: 08-07-2011 08-07-2011 Chronic Nonmalignant breast conditions (3 sources) Fibrocystic disease of breast; Translations: [Diffuse cystic mastopathy of unspecified breast] Onset: 04-01-2008 04-01-2008 Chronic Osteoporosis (3 sources) Senile osteoporosis; Translations: [Age-related osteoporosis without current pathological fracture] Onset: 09-04-2017 09-04-2017 Chronic Other aftercare (2 sources) Platelet dysfunction due to drugs; Translations: [care home (current) use of 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/antipl atelets] Onset: 03-20-2023 03-20-2023 Episodic Other aftercare (1 source) care home (current) use of 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/antipl atelets; Translations: [Platelet inhibition due to Plavix] Onset: 03-20-2023 Episodic Other nervous system disorders (3 sources) Encephalomalacia; Translations: [Other specified disorders of brain] Onset: 10-21-2018 10-21-2018 Chronic Kelley-; endo-; and myocarditis; cardiomyopathy (except that caused by tuberculosis or sexually transmitted disease) (3 sources) Heart valve disorder; Translations: [Endocarditis, valve unspecified] 09-04-2017 Chronic Secondary malignancies (3 sources) 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; Translations: [Secondary and unspecified malignant neoplasm of axilla and upper limb lymph nodes] Onset: 06-03-2008 06-03-2008 Chronic Unclassified (1 source) SDH (subdural hematoma) (HCC); Translations: [SDH (subdural hematoma) (HCC)] Onset: 03-20-2023 Results Test Name Value Interpretation Reference Range Facil ity Vital Signs Date Time Vital Sign Value Performing Clinician Ramón davis 04-08-2023 09:37-0400 Body height 157.5 cm Justin Gooden MD Work Phone: [facility] 04-08-2023 09:37-0400 Body weight 71 kg Justin Gooden MD Work Phone: [facility] 04-08-2023 09:37-0400 Diastolic blood pressure 86 mm[Hg] Justin Gooden MD Work Phone: [facility] 04-08-2023 09:37-0400 Heart rate 71 /min Justin Gooden MD Work Phone: [facility] 04-08-2023 09:37-0400 SaO2% (BldA) [Mass fraction] 95 % Justin Gooden MD Work Phone: [facility] 04-08-2023 09:37-0400 Systolic blood pressure 133 mm[Hg] Justin Gooden MD Work Phone: [facility] Encounters Encounter Date Encounter Type Care Provider Facility Start: 04-08-2023 End: 04-08-2023 ambulatory [facility] Facility:[facility] Start: 04-08-2023 End: 04-08-2023 Patient encounter procedure Justin Gooden MD Work Phone: [facility] Procedures Date Procedure Procedure Detail Performing Clinician Start: 03-19-2023 Antibody screen DARRICK KIM Plan of Treatment Date Care Activity Detail Author Start: 03-22-2026 DIABETES SCREEN DIABETES SCREEN [facility] Start: 03-19-2026 DIABETES SCREEN DIABETES SCREEN [facility] Start: 05-23-2023 Influenza vaccination C [facility] Start: 04-02-2023 End: 04-17-2024 CT BRAIN WO IVCON CT BRAIN WO IVCON Radiology Routine Subdural bleeding (HCC) Expected: 04/02/2023 (Approximate), Expires: 04/17/2024 [facility] Work Phone: Payers Date Payer Category Payer Medicare MMO MEDICARE MMO MEDADVANTAGE O [id number] 2018-Present [phone] [address] [place] [address] [facility] [id number] 2018 Unknown [id number] Social History Date Type Detail Facility Start: 02-21-2011 Tobacco smoking stat us NHIS Never smoked tobacco [facility] Start: 02-21-2011 Tobacco use and exposure Smokeless tobacco non-user [facility] Start: 12-01-2019 End: 04-08-2023 Alcohol intake Current non-drinker of alcohol (finding) [facility] Start: 03-19-2023 History SDOH Food Worry 1 [facility] Start: 03-19-2023 History SDOH Transpo rt Med 2 [facility] Start: 1945 Sex Assigned At Not on file C [facility] Start: 03-19-2023 End: 04-08-2023 History of Social function [facility] Start: 03-19-2023 End: 04-08-2023 Tobacco use panel [facility] wheth er (my/our) food would run out before (I/we) got money to buy more. Never true [facility] Work Phone: Medical Equipment Procedure Code Equipment Code Equipment Origin al Text Equipment Identifier Dates Sling Gynecare T vt Abbrevo Mini Prolene Plastic 12cm Gynecological Mesh - [id number] Start: 10-07-2019 Clinical Notes 10-21-2018 to 04-08-2023 Justin Gooden MD - 04/08/2023 10:15 AM EDTCWindy howe RT(R) - 04/08/2023 9:45 AM EDT Note Date & Type Note Facility 04-08-2023 Note HNO ID: [id number] Author: Justin Gooden MD Service: ? Author Type: Physician Type: Progress Notes Filed: 04/08/2023 10:04 AM Note Text: NEUROSURGERY FOLLOW UP OFFICE NOTE Dr. Justin Gooden MD, [facility] Date of visit: April 08, 2023 Patient Name: Ms.Ivory Stephen Ponce Date of : 1945 Current Age: [age] year old Sex: female MRN/E# [id number] Last Office Visit: Hospital follow-up Chief Complaint: Patient presents with: Hospital Follow Up: Possibly still taking plavix SUBJECTIVE: The patient presents as a hospital follow-up with imaging (CT B) for evaluation. This is a 78 year old female with a PMHx of R breast cancer s/p lumpectomy, valvular heart disease, appendectomy, cholecystectomy, JOAQUINA, and recent CVA (02/2023) on Plavix who was seen in consult at [facility] on 03/19/2023 after a ground-level fall. She reported that she was at home and tripped causing her to fall and strike her face and head. She denied any LOC. Neurologically she continued to have mild right-sided weakness from a previous CVA 2 weeks prior however this was improving. Work-up was completed and demonstrated a small left SDH for which no surgical intervention was indicated. She was placed on a short course of Keppra for seizure prophylaxis and advised to hold her Plavix until follow-up in 2 weeks. Today she states she is overall doing well. States she does have pressure in the front of her head and the right side of her neck. She denies any new or concerning issues otherwise. She is uncertain if she is taking Plavix or not. She presents for image review, evaluation and plan of care. 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) R breast cancer s/p lumpectomy, chemoradiation (2007) Osteoporosis Vaginal atrophy 08/07/2011 Valvular heart disease EF 55%; Mod AR; Mild to Mod MR; Mod dilatation of ascending aorta PAST SURGICAL HISTORY Procedure Laterality Date APPENDECTOMY HX 2006 BREAST BIOPSY CORE 04/08/08 U/S needle core UOQ right breast bx BX BREAST PERC NEED W/GUID 01/15/10 U/s NEEDLE CORE BX OUTER RIGHT BREAST BX/EXC LYMPH NODE OPEN DEEP AXILLARY NODE 05/02/08 COLONOSCOPY FLX DX W/COLLJ SPEC WHEN PFRMD 07-06-05 Repeat in INJ RADIOACTIVE TRACER FOR ID OF SENTINEL NODE 05/02/08 right INSJ TUNNELED CTR VAD W/SUBQ PORT AGE 5 YR/> 06-10-08 left IJ LAPAROSCOPY SURG CHOLECYSTECTOMY Cholecystectomy, lap MASTECTOMY,PARTIAL, WITH AXILLARY LYMPHADENECTOMY 05/02/08 PAST SURGICAL HISTORY OF 07/11/2011 Breast reconstruction-Dr. George RMVL JENNIFER CTR VAD W/SUBQ PORT/PROGRAM SERVICES ASSISTANT CTR/PRPH INSJ 11-07-08 TONSILLECTOMY HX 1972 TOTAL ABDOMINAL HYSTERECT W/WO RMVL TUBE OVARY Hysterectomy, JOAQUINA FAMILY HISTORY Problem Relation Age of Onset other (Other) Mother at age 52 of disease of endocrine system Heart Father DC Stroke Father Coronary Artery Disease Son age 47 DC Alcohol/Drug Son cirrhosis ALLERGIES Allergen Reactions Ambien [Zolpidem Ta* hallucinations Bactrim [Sulfametho* Rash Codeine tight band around heand AND couldn't breath Darvocet-N 100 [Pro* Intolerance severe nightmares Hytrin [Terazosin H* swelling of face Iodine Other: See Comments face swelling after used in a scan but uses betadine and iodine and eats shellfish without problems. Has had iodine tablets in the past without issue Neurontin [Gabapent* Mental Status Change Vicodin [Hydrocodon* Intolerance very bad nightmares Current Outpatient Medications Medication Sig Dispense Refill atorvastatin (LIPITOR) 40 mg tablet Take 1 tablet by mouth once daily. citalopram hydrobromide (CELEXA) 10 mg tablet Take 1 tablet by mouth every afternoon. pantoprazole DR (PROTONIX) 40 mg tablet Take 1 tablet by mouth once daily. clopidogrel (PLAVIX) 75 mg tablet Take 75 mg by mouth once daily. ubidecarenone Q-10 (CO Q-10) 10 mg cap Take 10 mg by mouth once daily. levETIRAcetam (KEPPRA) 500 mg tablet Take 1 tablet by mouth twice daily for 5 doses. 5 tablet 0 No current facility-administered medications for this visit. REVIEW OF SYSTEMS Review of Systems Constitutional: Negative for chills, diaphoresis (Negative for night sweats.) and fever. HENT: Negative for ear discharge and rhinorrhea. Eyes: Negative for discharge. Respiratory: Negative for cough, shortness of breath and wheezing. Cardiovascular: Negative for chest (more content not included)... [facility] 04-08-2023 Note HNO ID: [id number] Author: RT Waldo(R) Service: Radiology Author Type: Technologist Type: Progress Notes Filed: 04/08/2023 9:14 AM Note Text: Radiology Service Progress Note PATIENT NAME: Ibeth Ponce DATE OF SERVICE: April 08, 2023 TIME: 9:13 AM PATIENT IDENTITY VERIFICATION COMPLETED USING TWO (2) IDENTIFIERS: Name and Date of confirmed by patient verbally. FALL SCREENING: Has the patient had 2 falls in the last year or 1 fall with injury or currently using an Ambulatory Assistive Device (Walker, Cane, Wheelchair, Crutches, etc.)? Yes, Patient High Risk for Falls What interventions were put in place to prevent falls during this visit? Instructed Patient to Call for Help if Needed and Increased Observations by Caregivers PATIENT GENDER DATA: Female. status: : No status: NO. PATIENT RELEVANT IMPLANT DATA REVIEWED: Not Applicable RADIOLOGY DEPARTMENT: CT; Exam(s) Completed: Brain PERIPHERAL IV DATA: Not applicable SIGNED BY: RT Waldo(R) April 08, 2023 9:13 AM [facility] 04-08-2023 History of Present illness Narrative Images from the original note were not included. NEUROSURGERY FOLLOW UP OFFICE NOTE Dr. Justin Gooden MD, FACS Date of visit: April 08, 2023 Patient Name: Ms.Ivory Stephen Ponce Date of : 1945 Current Age: [age] year old Sex: female MRN/E# [id number] Last Office Visit: Hospital follow-up Chief Complaint: Patient presents with: Hospital Follow Up: Possibly still taking plavix SUBJECTIVE: The patient presents as a hospital follow-up with imaging (CT B) for evaluation. This is a 78 year old female with a PMHx of R breast cancer s/p lumpectomy, valvular heart disease, appendectomy, cholecystectomy, JOAQUINA, and recent CVA (02/2023) on Plavix who was seen in consult at [facility] on 03/19/2023 after a ground-level fall. She reported that she was at home and tripped causing her to fall and strike her face and head. She denied any LOC. Neurologically she continued to have mild right-sided weakness from a previous CVA 2 weeks prior however this was improving. Work-up was completed and demonstrated a small left SDH for which no surgical intervention was indicated. She was placed on a short course of Keppra for seizure prophylaxis and advised to hold her Plavix until follow-up in 2 weeks. Today she states she is overall doing well. States she does have pressure in the front of her head and the right side of her neck. She denies any new or concerning issues otherwise. She is uncertain if she is taking Plavix or not. She presents for image review, evaluation and plan of care. 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) R breast cancer s/p lumpectomy, chemoradiation (2007) Osteoporosis Vaginal atrophy 08/07/2011 Valvular heart disease EF 55%; Mod AR; Mild to Mod MR; Mod dilatation of ascending aorta PAST SURGICAL HISTORY Procedure Laterality Date APPENDECTOMY HX 2006 BREAST BIOPSY CORE 04/08/08 U/S needle core UOQ right breast bx BX BREAST PERC NEED W/GUID 01/15/10 U/s NEEDLE CORE BX OUTER RIGHT BREAST BX/EXC LYMPH NODE OPEN DEEP AXILLARY NODE 05/02/08 COLONOSCOPY FLX DX W/COLLJ SPEC WHEN PFRMD 07-06-05 Repeat in INJ RADIOACTIVE TRACER FOR ID OF SENTINEL NODE 05/02/08 right INSJ TUNNELED CTR VAD W/SUBQ PORT AGE 5 YR/> 9 left IJ LAPAROSCOPY SURG CHOLECYSTECTOMY Cholecystectomy, lap MASTECTOMY,PARTIAL, WITH AXILLARY LYMPHADENECTOMY 05/02/08 PAST SURGICAL HISTORY OF 07/11/2011 Breast reconstruction-Dr. George RMVL JENNIFER CTR VAD W/SUBQ PORT/PROGRAM SERVICES ASSISTANT CTR/PRPH INSJ 11-07-08 TONSILLECTOMY HX 1973 TOTAL ABDOMINAL HYSTERECT W/WO RMVL TUBE OVARY Hysterectomy, JOAQUINA FAMILY HISTORY Problem Relation Age of Onset other (Other) Mother at age 52 of disease of endocrine system Heart Father DC Stroke Father Coronary Artery Disease Son age 47 DC Alcohol/Drug Son cirrhosis ALLERGIES Allergen Reactions Ambien [Zolpidem Ta* hallucinations Bactrim [Sulfametho* Rash Codeine tight band around heand & couldn't breath Darvocet-N 100 [Pro* Intolerance severe nightmares Hytrin [Terazosin H* swelling of face Iodine Other: See Comments face swelling after used in a scan but uses betadine and iodine and eats shellfish without problems. Has had iodine tablets in the past without issue Neurontin [Gabapent* Mental Status Change Vicodin [Hydrocodon* Intolerance very bad nightmares Current Outpatient Medications Medication Sig Dispense Refill atorvastatin (LIPITOR) 40 mg tablet Take 1 tablet by mouth once daily. citalopram hydrobromide (CELEXA) 10 mg tablet Take 1 tablet by mouth every afternoon. pantoprazole DR (PROTONIX) 40 mg tablet Take 1 tablet by mouth once daily. clopidogrel (PLAVIX) 75 mg tablet Take 75 mg by mouth once daily. ubidecarenone Q-10 (CO Q-10) 10 mg cap Take 10 mg by mouth once daily. levETIRAcetam (KEPPRA) 500 mg tablet Take 1 tablet by mouth twice daily for 5 doses. 5 tablet 0 No current facility-administered medications for this visit. REVIEW OF SYSTEMS Review of Systems Constitutional: Negative for chills, diaphoresis (Negative for night sweats.) and fever. HENT: Negative for ear discharge and rhinorrhea. Eyes: Negative for discharge. Respiratory: Negative for cough, shortness of breath and wheezing. Cardiovascular: Negative for chest pain, palpitations and leg swelling. Gastrointestinal: Negative for constipation, diarrhea, nausea and vomiting. Endocrine: Negative for cold intolerance and heat intolerance. Genitourinary: Negative for frequency. Negative for urinary incontinence and urinary retention. Musculoskeletal: Positive for gait problem. Negative for back pain, joint swelling, myalgias and neck pain. Skin: Negative for rash (Negative for hives and skin lesions.). Allergic/Immunologic: Negative for environmental allergies and food allergies. Negative for contact allergy, seasonal allergies. Neurological: Positive for headaches. Negative for dizziness, seizures, syncope, weakness, light-headedness and numbness (Negative for numbness in extremities.). Hematological: Does not bruise/bleed easily. Psychiatric/Behavioral: The patient is not nervous/anxious. Negative for depression. OBJECTIVE: BP 133/86 Pulse 71 Ht 5' 2 (1.58m) Wt 156 lb 8.4 oz (71.0kg) SpO2 95% BMI 28.62 kg/(m^2). PHYSICAL EXAM: Mental State : Alert, memory function unremarkable. Attention span and concentration normal for patient's age. Speech normal, no receptive or expressive speech deficit. Recent and remote memory normal. Orientation : Oriented to person, place and time. Higher Cortical Function : Intact speech and language. Spontaneous speech and comprehension normal. Fund of knowledge intact for pt level of education. Cranial Nerves : II: No visual field cut no blurring, Makes and sustains eye contact III, IV, : Normal, no double vision or drooping. Pupils equal and reactive to light. Extraocular muscles intact. No nystagmus V: Normal sensation on the face, normal jaw movements VII: No paresis on either side VIII: No gross hearing deficit IX: Good and equal shoulder shrugs XII: Tongue midline, no fasciculations Sensory: Normal Sensation in upper and lower extremities and trunk to touch and noxious stimuli. Motor: Normal muscle tone and bulk. No tremor or uncontrollable movements. No spasticity or tremor. Strength: Upper Extremities : R L Deltoid 5/5 5/5 Biceps 5/5 5/5 Triceps 5/5 5/5 Wrist Ext 5/5 5/5 Wrist Flx 5/5 5/5 Hand Int 5/5 5/5 Lower Extremities : Hip Flexors 5/5 5/5 Hip Extensors 5/5 5/5 Hip Abductors 5/5 5/5 Straight leg Neg Neg Ankle dorsiflex 5/5 5/5 Ankle Plantar 5/5 5/5 Heel Walking intact intact Toe Walking intact intact Reflexes : Biceps 2+ 2+ Triceps 2+ 2+ Wrist 2+ 2+ Patellar 2+ 2+ Achilles 2+ 2+ Kramer's Neg Neg Tinel's Neg Neg Phalen's Neg Neg Cerebellar Function : Normal finger to nose. Normal rapid alternating movements. No ataxia. Negative Romberg. Gait and Station: Compensated. Utilizing cane as an assistive device. Pulmonary: Lungs without cough, audible wheeze. Respirations unlabored. Cardiac: Regular rate and rhythm. No murmer, gallop or rub. IMAGING: CT Brain WO IVCON performed today 04/08/23 demonstrates: Report is pending but to me the left-sided subtemporal hematoma has resolved. There is no evidence of convexity accumulation of fluid or shift. ASSESSMENT/PLAN: 1. SDH (subdural hematoma) ([facility]) - ICD9: 432.1, ICD10: S06.5XAA This patient was seen in the hospital after a trauma to the head and face with a left subtemporal tentorial subdural hematoma which did not require surgery. This happened 2 weeks after she was diagnosed with a stroke. He gradually improved and is presently at home and her daughter thinks that she is receiving the Plavix as she was instructed when she had the stroke. She is awake alert oriented x3. She is using a cane since she had the stroke and she has a slow gait. She has no cranial nerve deficit. She has facial ecchymotic areas on the right side and the right cheek and right jaw. I discussed with the patient and her and daughter the fact that the CT scan to me does not show any residual blood but I will report to them after I get the report from the radiologist. If there is any concern I will have her discontinue the Plavix otherwise she can continue on it. We will see her on a as needed basis unless there is a reason to after the scan report. Justin Gooden MD Follow Up: Return for new or worsening symptoms. This note was partially generated using [employer] voice recognition system, and there may be some incorrect words, spellings, and punctuation that were not noted in checking the note before saving. documented in this encounter [facility] 04-08-2023 History of Present illness Narrative Radiology Service Progress Note PATIENT NAME: Ibeth Ponce DATE OF SERVICE: April 08, 2023 TIME: 9:13 AM PATIENT IDENTITY VERIFICATION COMPLETED USING TWO (2) IDENTIFIERS: Name and Date of confirmed by patient verbally. FALL SCREENING: Has the patient had 2 falls in the last year or 1 fall with injury or currently using an Ambulatory Assistive Device (Walker, Cane, Wheelchair, Crutches, etc.)? Yes, Patient High Risk for Falls What interventions were put in place to prevent falls during this visit? Instructed Patient to Call for Help if Needed and Increased Observations by Caregivers PATIENT GENDER DATA: Female. status: : No status: NO. PATIENT RELEVANT IMPLANT DATA REVIEWED: Not Applicable RADIOLOGY DEPARTMENT: CT; Exam(s) Completed: Brain PERIPHERAL IV DATA: Not applicable SIGNED BY: RT Waldo(R) April 08, 2023 9:13 AM documented in this encounter [facility] 03-22-2023 Note HNO ID: [id number] Author: Linette Kwong MD Service: General Surgery Author Type: Resident Type: Progress Notes Filed: 03/22/2023 6:14 PM Note Text: Attestation signed by Layo Benson MD at 04/09/2023 9:03 AM (Updated) Patient was seen and evaluated by myself on this day March 22, 2023. I agree with the presented documentation unless specifically noted. SIGNATURE: Layo Benson MD PATIENT NAME: Ibeth Ponce DATE: April 07, 2023 TIME: 12:29 PM Pager: [phone] Trauma Surgery Progress Note SERVICE DATE: 03/21/2023 Trauma Service Pager: For questions or concerns Mon-Fri 6a-5p please page [phone]. After 5pm and on Weekends and Holidays, please page [phone] if in ICU or [phone] if on RNF. SUBJECTIVE: No acute events overnight. Patient states that she is doing okay. She denies nay numbness or weakness in her extremities. Has been able to tolerate a diet. OBJECTIVE: Vitals: Temp (24hrs), Av.6 ?C (97.9 ?F), Min:35.7 ?C (96.3 ?F), Max:37.4 ?C (99.3 ?F) BP 123/82 Pulse 73 Temp 36.6 ?C (97.9 ?F) (Oral) Resp 18 Ht 157.5 cm (5' 2 ) Wt 71.2 kg (156 lb 15.5 oz) SpO2 95% BMI 28.71 kg/m? O2 Therapy: Nasal Cannula IANDO: Date 03/21/23699 - 03/22/23 0603/22/23 07 - 03/23/23 0659 Shift 5226-5739 2300-1009 2362-9517 24 Hour Total 2895-4623 1321-2774 8913-8909 24 Hour Total INTAKE PO 387 120 507 PO 387 120 507 Shift Total 387 120 507 OUTPUT Urine 275 100 375 Void (ml) 175 100 275 Urine Not Saved. 1 x 1 x 2 x Output ([REMOVED] External Collection Device 03/21/23 0700 03/21/23 1200) 100 100 Shift Total 275 100 375 Weight (kg) 71.2 71.2 71.2 71.2 71.2 71.2 71.2 71.2 MEDICATIONS Current Facility-Administered Medications Medication Dose Route Frequency sodium chloride 2 g tab(s) 2 g ORAL TID enoxaparin 30 mg injection (LOVENOX) 30 mg SUBCUTANEOUS BID citalopram 10 mg tab(s) (CeleXA) 10 mg ORAL DAILY senna-docusate 8.6-50 mg 1 tablet (SENNA-S) 1 tablet ORAL BID levETIRAcetam 500 mg tab(s) (KEPPRA) 500 mg ORAL BID ondansetron 4 mg tab(s) (ZOFRAN) 4 mg ORAL q 6 H PRN Or ondansetron (PF) 4 mg injection (ZOFRAN) 4 mg INTRAVENOUS q 6 H PRN acetaminophen 1,000 mg tab(s) (TYLENOL) 1,000 mg ORAL q 6 H PRN atorvastatin 40 mg tab(s) (LIPITOR) 40 mg ORAL AT BEDTIME pantoprazole DR 40 mg tab(s) (PROTONIX) 40 mg ORAL DAILY (6 AM) albuterol 2.5 mg /3 mL (0.083 %) 2.5 mg (PROVENTIL) 2.5 mg INHALATION q 6 H PRN NaCl 0.9% iv flush bag 20 mL INTRAVENOUS PRN Labs: Recent Labs 03/22/23 0617 03/22/23 0041 03/21/23 1210 03/21/23 0604 NA 135* 135* 135* < > 133* 133* K 4.2 -- -- 3.5* CHLOR 102 -- -- 99 CO2 23 -- -- 23 BUN 14 -- -- 8 CREAT 0.74 -- -- 0.69 GLUC 102* -- -- 104* ANION 10 -- -- 11 CA 9.0 -- -- 8.8 MG -- -- -- 1.8 P -- -- -- 3.9 WBC 6.07 -- -- 6.23 HB 12.6 -- -- 13.1 HCT 37.4 -- -- 37.4 PLT 196 -- -- 198 < > = values in this interval not displayed. PHYSICAL EXAM: Genl: Appears age appropriate. No acute distress. Resting comfortably. Head/Face: Normocephalic. Bruising to right lower jaw. Eyes: EOMI. Sclera not icteric, not injected Neck: No mid-line masses. C-spine non-tender. Resp: Equal excursion bilaterally. Breathing is non-labored on nasal cannula CVS: RRR as above; extremities well perfused GI: Abdomen is soft, non-tender, not distended. MSK: Extremities without clubbing, cyanosis, edema. Skin: Warm and dry. Not jaundiced. Neuro: AANDOx3. Strength and sensation normal. FUNES. GCS15. ASSESSMENT AND PLAN: Problem List SDH (subdural hematoma) (HCC) POA: Yes Fall POA: Yes Platelet inhibition due to Plavix POA: Yes Hyponatremia POA: No Cerebral salt-wasting syndrome POA: Yes 78 year old female s/p mechanical GLF on Plavix, transferred from [facility] performed: CT HNF, CXR/PXR, XR R shoulder/knee (03/18) CT brain x2 (03/19) Traumatic Injuries: Small subdural hematoma along the meningeal reflections of the left base of the brain Operations/Procedures: 1. None Care Plan: SDH Neurosurgery consulted Non-op management Hold Plavix until NSGY follow up DDAVP and platelets administered 03/19 Keppra 500mg BID x7d Hyponatremia DDAVP given 03/19 Nephrology consulted Salt tabs 2G TID S/p HTS with normalization of sodium Monitor mental status and sodium trend- Last two sodium draws 135. Will DC Q6 sodium checks. Change to daily sodium checks. Recent stroke on Plavix F/u outpatient with neurologist. Current diet order: DIET REGULAR Pain regimen: PRN tylenol Bowel regimen: Senna-s Labs: As above Likely discharge later today PPX: DVT: on LVX ; SCDs, mobilize Ulcer: protonix Vit D level if > 65 yo: pending Consulted Services: Neurosurgery SICU PT/OT V BELT FINISHER (more content not included)... [facility] 03-21-2023 Note HNO ID: [id number] Author: Jennyfer Campbell RN Service: Care Management Author Type: Registered Nurse Type: Care Mgt Progress Note Filed: 03/21/2023 3:28 PM Note Text: CARE MANAGEMENT PROGRESS NOTE SERVICE DATE: 03/21/2023 SERVICE TIME: 3:27 PM LOS: 2 days Needs Prior to Discharge: OT/PT Evaluation DC plan: Home with [facility] DC date: TBD Barrier: lab abnormalities Met with pt and discussed possible placement needs d/t weakness and LOS. Pt declines at this time. SIGNATURE: Jennyfer Campbell RN PATIENT NAME: Ibeth Ponce DATE: March 21, 2023 TIME: 3:27 PM PAGER/CONTACT #: [phone] [facility] 03-21-2023 Note HNO ID: [id number] Author: Carlo Correia DO Service: General Surgery Author Type: Resident Type: Progress Notes Filed: 03/21/2023 3:56 PM Note Text: Attestation signed by Ren Bynum MD at 03/25/2023 3:44 AM Attending Note I evaluated the patient and personally participated in the aguilar components on 03/21/2023 I agree with the resident's findings and plan as documented and have discussed the case and management of the patient's care with the resident. Ren Bynum MD Delayed entry Trauma Surgery Progress Note SERVICE DATE: 03/21/2023 Trauma Service Pager: For questions or concerns Mon-Fri 6a-5p please page [phone]. After 5pm and on Weekends and Holidays, please page [phone] if in ICU or [phone] if on RNF. SUBJECTIVE: Transferred to ICU over night for hyponatremia and needing hypertonic saline. Over corrected this morning and HTS held. NO change in mental status although patient is very tired. OBJECTIVE: Vitals: Temp (24hrs), Av.7 ?C (98 ?F), Min:36.1 ?C (97 ?F), Max:37.3 ?C (99.1 ?F) BP 132/94 Pulse 70 Temp 36.5 ?C (97.7 ?F) Resp 15 Ht 157.5 cm (5' 2 ) Wt 71.2 kg (156 lb 15.5 oz) SpO2 98% BMI 28.71 kg/m? O2 Therapy: Nasal Cannula IANDO: Date 03/20/23 07 - 03/21/2359 03/21/23 0700 - 03/22/23 0659 Shift 2249-1800 7660-0262 4752-0929 24 Hour Total 7134-3361 4694-0776 1456-8290 24 Hour Total INTAKE PO 0 0 PO 0 0 Shift Total 0 0 OUTPUT Urine 700 1700 2400 0 0 Void (ml) 700 1700 2400 0 0 Urine Not Saved. 1 x 1 x 2 x Output ( External Collection Device 03/21/23 0700) 0 0 # of BMs Number of BMs 1 x 1 x Shift Total 700 1700 2400 0 0 Weight (kg) 70.3 71.2 71.2 71.2 71.2 71.2 71.2 71.2 MEDICATIONS Current Facility-Administered Medications Medication Dose Route Frequency senna-docusate 8.6-50 mg 1 tablet (SENNA-S) 1 tablet ORAL BID levETIRAcetam 500 mg tab(s) (KEPPRA) 500 mg ORAL BID ondansetron 4 mg tab(s) (ZOFRAN) 4 mg ORAL q 6 H PRN Or ondansetron (PF) 4 mg injection (ZOFRAN) 4 mg INTRAVENOUS q 6 H PRN acetaminophen 1,000 mg tab(s) (TYLENOL) 1,000 mg ORAL q 6 H PRN atorvastatin 40 mg tab(s) (LIPITOR) 40 mg ORAL AT BEDTIME pantoprazole DR 40 mg tab(s) (PROTONIX) 40 mg ORAL DAILY (6 AM) albuterol 2.5 mg /3 mL (0.083 %) 2.5 mg (PROVENTIL) 2.5 mg INHALATION q 6 H PRN NaCl 0.9% iv flush bag 20 mL INTRAVENOUS PRN Labs: Recent Labs 03/21/23 0604 03/21/23 0020 03/20/23 1329 03/20/23 0437 03/19/23 0306 03/18/23 2320 NA 133* 133* 131* < > 127* 142 141 K 3.5* -- -- 3.6* 3.1* 3.3* CHLOR 99 -- -- 91* 104 103 CO2 23 -- -- 25 26 25 BUN 8 -- -- 13 17 16 CREAT 0.69 -- -- 0.70 0.80 0.78 GLUC 104* -- -- 102* 133* 120* ANION 11 -- -- 11 12 13 CA 8.8 -- -- 8.7 8.9 9.3 MG -- -- -- -- 2.0 -- P -- -- -- -- 4.6 -- ALB -- -- -- -- -- 4.3 AST -- -- -- -- -- 27 ALT -- -- -- -- -- 30 ALKPHOS -- -- -- -- -- 110 TBILI -- -- -- -- -- 0.3 WBC 6.23 -- -- 6.26 7.52 7.60 HB 13.1 -- -- 11.1* 11.4* 12.1 HCT 37.4 -- -- 32.8* 33.9* 37.0 PLT 198 -- -- 188 190 186 INR -- -- -- -- -- 1.0 < > = values in this interval not displayed. PHYSICAL EXAM: Genl: Appears age appropriate. No acute distress. Resting comfortably. Head/Face: Normocephalic. Eyes: EOMI. Sclera not icteric, not injected Neck: No mid-line masses. C-spine non-tender. Resp: Lung sounds are clear bilat. No wheezes. No rales. Breathing is non-labored on nasal cannula CVS: RRR as above; 2+ pulses at RA, DP, PT bilat. GI: Abdomen is soft, non-tender, not distended. MSK: Extremities without clubbing, cyanosis, edema. Skin: Warm and dry. Not jaundiced. Neuro: AANDOx3. Strength and sensation normal. FUNES. GCS15. ASSESSMENT AND PLAN: Problem List SDH (subdural hematoma) (HCC) POA: Yes Fall POA: Yes Platelet inhibition due to Plavix POA: Yes Hyponatremia POA: No 78 year old female s/p mechanical GLF on Plavix, transferred from [facility] performed: CT HNF, CXR/PXR, XR R shoulder/knee (03/18) CT brain x2 (03/19) Traumatic Injuries: Small subdural hematoma along the meningeal reflections of the left base of the brain Operations/Procedures: 1. None Care Plan: SDH Neurosurgery consulted Non-op management Hold Plavix until NSGY follow up DDAVP and platelets administered 03/19 Keppra 500mg BID x7d Hyponatremia DDAVP given 03/19 Nephrology consulted Salt tabs 2G TID S/p HTS with normalization of sodium Monitor mental status and sodium trend Recent stroke on Plavix Neurology consult pending Current diet order: DIET REGULAR Pain regimen: PRN tylenol Bowel regimen: Senna-s Labs: As above PPX: DVT: Hold DVT ppx; SCDs, mobilize Ulcer: protonix Vit D level if > 65 yo: pending Consulted Services: Neurosurgery SICU PT/OT V BELT FINISHER Disp (more content not included)... [facility] 03-21-2023 Note HNO ID: [id number] Author: Charlotte Guajardo MD Service: General Surgery Author Type: Physician Type: Progress Notes Filed: 03/21/2023 11:32 AM Note Text: INPATIENT SICU PROGRESS NOTE SERVICE DATE: 03/21/2023 SERVICE TIME: 8:16 AM Subjective Patient seen and examined this AM. She reports she is doing we.. Denies any headaches, blurry vision, nausea, or vomiting. Responds to commands appropriately. Current Facility-Administered Medications Medication Dose Route Frequency NaCl 0.9% iv flush bag 20 mL INTRAVENOUS PRN levETIRAcetam 500 mg tab(s) (KEPPRA) 500 mg ORAL BID ondansetron 4 mg tab(s) (ZOFRAN) 4 mg ORAL q 6 H PRN Or ondansetron (PF) 4 mg injection (ZOFRAN) 4 mg INTRAVENOUS q 6 H PRN acetaminophen 1,000 mg tab(s) (TYLENOL) 1,000 mg ORAL q 6 H PRN atorvastatin 40 mg tab(s) (LIPITOR) 40 mg ORAL AT BEDTIME pantoprazole DR 40 mg tab(s) (PROTONIX) 40 mg ORAL DAILY (6 AM) albuterol 2.5 mg /3 mL (0.083 %) 2.5 mg (PROVENTIL) 2.5 mg INHALATION q 6 H PRN senna-docusate 8.6-50 mg 1 tablet (SENNA-S) 1 tablet ORAL BID Objective VITAL SIGNS BP 132/94 Pulse 84 Temp (Src) 97.5 (Axillary) Resp 27 Ht 5' 2 (1.58m) Wt 156 lb 15.5 oz (71.2kg) SpO2 98% BMI 28.70 kg/(m2). O2 Therapy: Nasal Cannula, Liters: 2 Temp (24hrs), Av.7 ?C (98 ?F), Min:36.1 ?C (97 ?F), Max:37.3 ?C (99.1 ?F) Date 03/20/23699 - 03/21/2365803/21/23699 - 03/22/23658 Shift 8844-0175 3082-8351 1667-8425 24 Hour Total 5198-0092 4853-6795 7804-7441 24 Hour Total INTAKE PO 0 0 PO 0 0 Shift Total 0 0 OUTPUT Urine 700 1700 2400 0 0 Void (ml) 700 1700 2400 0 0 Urine Not Saved. 1 x 1 x 2 x Output ( External Collection Device 03/21/23 0700) 0 0 # of BMs Number of BMs 1 x 1 x Shift Total 700 1700 2400 0 0 Weight (kg) 70.3 71.2 71.2 71.2 71.2 71.2 71.2 71.2 PHYSICAL EXAM: Genl: Appears age appropriate. No acute distress. Resting comfortably. Head/Face: Normocephalic. Bruising to face. Eyes: EOMI. Sclera not icteric, not injected Neck: No mid-line masses. C-spine non-tender. Back: T AND L Spine non-tender, no step-offs or deformities noted. No flank tenderness. Resp: Lung sounds are clear bilat. No wheezes. No rales. Breathing is non-labored on RA @94%. CVS: RRR as above; 2+ pulses at RA, DP, PT bilat. GI: Abdomen is soft, non-tender, not distended. Bowel sounds normoactive. No peritonitis. MSK: Extremities without clubbing, cyanosis, edema. Normal ROM x 4. Skin: Warm and dry. Not jaundiced. Neuro: AANDOx3. Strength and sensation normal. FUNES. GCS15. Psych: Normal mood. Normal affect. Appropriate insight into current situation. DATA: Diagnostic tests reviewed for today's visit: No results for input(s): BODSITE, CTYPE, PH, PCO2, PO2, BE, HCO3, CO2CT, O2HB, COHB, MHGB, TEMP, PHTC, PCO2T, PO2T, O2AD in the last 72 hours. Recent Labs 03/21/23 0604 03/21/23 0020 03/20/23 1759 03/20/23 1329 03/20/23 0437 03/19/23 0306 03/18/23 2320 CREAT 0.69 -- -- -- 0.70 0.80 0.78 BUN 8 -- -- -- 13 17 16 NA 133* 133* 131* 119* 121* 127* 142 141 K 3.5* -- -- -- 3.6* 3.1* 3.3* CHLOR 99 -- -- -- 91* 104 103 CO2 23 -- -- -- 25 26 25 ANION 11 -- -- -- 11 12 13 GLUC 104* -- -- -- 102* 133* 120* CA 8.8 -- -- -- 8.7 8.9 9.3 P -- -- -- -- -- 4.6 -- MG -- -- -- -- -- 2.0 -- ALB -- -- -- -- -- -- 4.3 AST -- -- -- -- -- -- 27 ALT -- -- -- -- -- -- 30 ALKPHOS -- -- -- -- -- -- 110 TBILI -- -- -- -- -- -- 0.3 WBC 6.23 -- -- -- 6.26 7.52 7.60 HB 13.1 -- -- -- 11.1* 11.4* 12.1 HCT 37.4 -- -- -- 32.8* 33.9* 37.0 PLT 198 -- -- -- 188 190 186 Assessment AND Plan ACTIVE PROBLEM LIST Esophageal Reflux Generalized Anxiety Disorder 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, Estrogen Receptor Negative (Hcc) 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 None Neuro: - SDH Neurosurgery consulted Non-op management Hold Plavix until NSGY follow up DDAVP and platelets administered 03/19 Keppra 500mg BID x7d - Pain: PRN tylenol. CV: - HDS - Tele - EKG as indcated Resp: - 94 on O2 Therapy: Room Air - Vent N/A - CXR Findings: N/A GI: - DIET REGULAR - Bowel Regimen: Noah-S - GI ppx: PPi Renal: - strict Is/Os - Hyponatremia DDAVP giv (more content not included)... [facility] 03-20-2023 Note HNO ID: [id number] Author: Kiarra Traore APRN.TOM Service: General Surgery Author Type: Nurse Practitioner Type: Plan of Care Filed: 03/20/2023 3:37 PM Note Text: Repeat sodium 121 from 127 from 142. Patient received DDAVP on 03/19. Continue salt tabs. Initiate NS infusion, nephrology consult, q6 sodium checks. Patient remains A/Ox3, asymptomatic. Plan of care discussed with patient, , and RN. Kiarra Traore APRN.TOM 03/20/2023 3:37 PM [facility] 03-20-2023 Note HNO ID: [id number] Author: Kiarra Traore APRN.TOM Service: General Surgery Author Type: Nurse Practitioner Type: Progress Notes Filed: 03/20/2023 12:53 PM Note Text: Trauma Surgery Progress Note SERVICE DATE: 03/20/2023 Trauma Service Pager: For questions or concerns Mon-Fri 6a-5p please page [phone]. After 5pm and on Weekends and Holidays, please page [phone] if in ICU or [phone] if on RNF. SUBJECTIVE: Patient had headache overnight which has since improved. Did experience nausea without vomiting when attempting to eat breakfast. Denies dizziness with motion or positional change. Denies pain apart from mild persistent headache. OBJECTIVE: Vitals: Temp (24hrs), Av.6 ?C (97.8 ?F), Min:36.2 ?C (97.2 ?F), Max:37 ?C (98.6 ?F) BP 162/105 Pulse 64 Temp 36.5 ?C (97.7 ?F) (Oral) Resp 16 Ht 157.5 cm (5' 2 ) Wt 70.3 kg (154 lb 15.7 oz) SpO2 100% BMI 28.35 kg/m? O2 Therapy: Nasal Cannula IANDO: Date 03/19/23699 - 03/20/23 0659 03/20/23 07 - 03/21/23 0659 Shift 0809-0038 3064-6722 4679-0814 24 Hour Total 3238-5277 2043-6897 3909-8159 24 Hour Total INTAKE PO 600 600 PO 600 600 IV 393 393 Volume (mL) (NaCl 0.9% iv infusion) 393 393 Blood Products 300 300 Infusion Complete Volume (mL) (Platelet Transfusion Instruction) 300 300 Shift Total 1293 1293 OUTPUT Urine 475 475 Void (ml) 475 475 Urine Incontinence/Not Saved 1 x 1 x Urine Not Saved. 1 x 2 x 3 x 1 x 1 x Shift Total 475 475 Weight (kg) 70.3 70.3 70.3 70.3 70.3 70.3 70.3 70.3 MEDICATIONS: Current Facility-Administered Medications Medication Dose Route Frequency sodium chloride 1 g tab(s) 1 g ORAL TID levETIRAcetam 500 mg tab(s) (KEPPRA) 500 mg ORAL BID ondansetron 4 mg tab(s) (ZOFRAN) 4 mg ORAL q 6 H PRN Or ondansetron (PF) 4 mg injection (ZOFRAN) 4 mg INTRAVENOUS q 6 H PRN acetaminophen 1,000 mg tab(s) (TYLENOL) 1,000 mg ORAL q 6 H PRN atorvastatin 40 mg tab(s) (LIPITOR) 40 mg ORAL AT BEDTIME citalopram 10 mg tab(s) (CeleXA) 10 mg ORAL DAILY pantoprazole DR 40 mg tab(s) (PROTONIX) 40 mg ORAL DAILY (6 AM) albuterol 2.5 mg /3 mL (0.083 %) 2.5 mg (PROVENTIL) 2.5 mg INHALATION q 6 H PRN NaCl 0.9% iv flush bag 20 mL INTRAVENOUS PRN Labs: Recent Labs 03/20/23 0437 03/19/23 0306 03/18/23 2320 NA 127* 142 141 K 3.6* 3.1* 3.3* CHLOR 91* 104 103 CO2 25 26 25 BUN 13 17 16 CREAT 0.70 0.80 0.78 GLUC 102* 133* 120* ANION 11 12 13 CA 8.7 8.9 9.3 MG -- 2.0 -- P -- 4.6 -- ALB -- -- 4.3 AST -- -- 27 ALT -- -- 30 ALKPHOS -- -- 110 TBILI -- -- 0.3 WBC 6.26 7.52 7.60 HB 11.1* 11.4* 12.1 HCT 32.8* 33.9* 37.0 PLT 188 190 186 INR -- -- 1.0 PHYSICAL EXAM: Genl: Appears age appropriate. No acute distress. Resting comfortably. Head/Face: Normocephalic. Bruising to face. Eyes: EOMI. Sclera not icteric, not injected Neck: No mid-line masses. C-spine non-tender. Back: T AND L Spine non-tender, no step-offs or deformities noted. No flank tenderness. Resp: Lung sounds are clear bilat. No wheezes. No rales. Breathing is non-labored on RA @94%. CVS: RRR as above; 2+ pulses at RA, DP, PT bilat. GI: Abdomen is soft, non-tender, not distended. Bowel sounds normoactive. No peritonitis. MSK: Extremities without clubbing, cyanosis, edema. Normal ROM x 4. Skin: Warm and dry. Not jaundiced. Neuro: AANDOx3. Strength and sensation normal. FUNES. GCS15. Psych: Normal mood. Normal affect. Appropriate insight into current situation. ASSESSMENT AND PLAN: Assessment Active Hospital Problems Diagnosis Date Noted SDH (subdural hematoma) (HCC) 03/19/2023 Fall 03/20/2023 Platelet inhibition due to Plavix 03/20/2023 Hyponatremia 03/20/2023 Assessment: 78 year old female s/p mechanical GLF on Plavix, transferred from [facility] performed: CT HNF, CXR/PXR, XR R shoulder/knee (03/18) CT brain x2 (03/19) Traumatic Injuries: Small subdural hematoma along the meningeal reflections of the left base of the brain Operations/Procedures: 1. None Care Plan: SDH Neurosurgery consulted Non-op management Hold Plavix until NSGY follow up DDAVP and platelets administered 03/19 Keppra 500mg BID x7d Hyponatremia DDAVP given 03/19 Na 127 from 142 Urine studies pending Salt tabs 1G TID Re-check at 2pm Recent stroke on Plavix Neurology consult pending Current diet order: DIET REGULAR Pain regimen: PRN tylenol Bowel regimen: Senna-s Labs: As above PPX: DVT: Hold DVT ppx; SCDs, mobilize Ulcer: protonix Vit D level if > 65 yo: pending Consulted Services: Neurosurgery SICU PT/OT V BELT FINISHER Dispo Planning: PT/OT recs outpatient therapy. Case management following. Incidentals: None Follow Up Needs: NATI - Dr. Gooden Staff Trauma Surgeon: Dr. Bynum SIGNATURE: Kiarra Traore APRN.CNP PATIENT NAME: Ibeth Ponce DATE: 03/20/2023 TIME: 9:33 AM Pager: see below Trauma Service Pager: For questions or concerns Fri- (more content not included)... [facility] 03-19-2023 Note HNO ID: [id number] Author: Renetta Brown DO Service: General Surgery Author Type: Resident Type: Plan of Care Filed: 03/19/2023 9:26 PM Note Text: Pt seen and evaluated after being paged about new onset headache around 7 pm. She is AANDO x3. Had some nausea, no vomiting. She denies vision change or motor or sensation change. Attending updated. CTH ordered STAT. BP 127/81 Pulse 64 Temp 36.2 ?C (97.2 ?F) (Oral) Resp 18 Ht 157.5 cm (5' 2 ) Wt 70.3 kg (154 lb 15.7 oz) SpO2 96% BMI 28.35 kg/m? Renetta Brown DO 03/19/2023 8:55 PM Addendum: CTH reviewed; stable. [facility] 03-19-2023 Note HNO ID: [id number] Author: Linette Kwong MD Service: General Surgery Author Type: Resident Type: Plan of Care Filed: 03/19/2023 2:29 PM Note Text: Discussed with patient about code status. Patient states that she would want chest compressions if her heart were to stop and would also want to be intubated if she was to stop breathing. At this time patient is full code. Linette Kwong MD General Surgery PGY 1 March 19, 2023 2:29 PM [facility] 03-19-2023 Note HNO ID: [id number] Author: Jennyfer Campbell RN Service: Care Management Author Type: Registered Nurse Type: Care Mgt Initial Assessment Filed: 03/19/2023 12:06 PM Note Text: CARE MANAGEMENT: ASSESSMENT AND DISCHARGE PLAN SERVICE DATE: March 19, 2023 SERVICE TIME: 11:59 AM PCP: Stephanie Cuellar MD Primary Contact: Extended Emergency Contact Information Primary Emergency Contact: Milena El Mobile Relation: Daughter Secondary Emergency Contact: Gilberto Ponce Mobile Relation: Spouse Admission Status: Inpatient Insurance Provider: [facility] Discharge Planning requested by: Per Department Practice Potential Transition Plans Home;Home Care Advance Directives Current Living Arrangements and Support Lives with: Spouse/significant other Type of Residence: Private Residence (House) Does the patient have to climb stairs at home?: Yes Support: Spouse/significant other How do you manage to accomplish the following: Independent: Ambulation;Bathe/Shower;Dress;Me als/Meal Prep;Going to the bathroom;Medication Management Dependent: Transportation to [facility]community Current Services/Equipment Current Post-Acute Service(s): Skilled Home Care Discharge Planning Patient Goal(s): Better mobility, Be able to go home [place] of Choice Explained: Are you interested in bedside delivery of your medications? No Discharge Planning Participant(s): Patient Patient/Family Comments: Caregiver Assessment: Caregiver is ready, willing and able to meet the patient's needs as recommended by the inter-professional team: Yes Transport at Discharge: Transportation Arrangements: To Be Determined Needs Prior to Discharge: Needs Prior to Discharge: Home Care Order Post-Acute Discharge Plan: Pt lives with spouse. Active with [facility]. Pt has cane at bedside. Pt has PCP and pharmacy is [facility]. SIGNATURE: Jennyfer Campbell RN PATIENT NAME: Ibeth Ponce DATE: March 19, 2023 TIME: 11:59 AM CONTACT #: [phone] [facility] 03-19-2023 Note HNO ID: [id number] Author: Vel Fulton Service: General Surgery Author Type: ? Type: Progress Notes Filed: 03/19/2023 9:35 AM Note Text: Attestation signed by Shannon Escobar MD at 03/19/2023 10:09 AM TEACHING PROVIDER (Physician/TRAVIS/RAMEZ) NOTE OF PERSONAL INVOLVEMENT IN CARE: I have personally seen and examined the patient and performed the medical decision-making components. I have reviewed the Medical Student's documentation and verified the findings in the note as written. Any additions or changes are noted in bold/italics. See consult note Signature: Shannon Escobar Date: 03/19/2023 Time: 10:09 AM INPATIENT SICU PROGRESS NOTE SERVICE DATE: 03/19/2023 SERVICE TIME: 6:49 AM Subjective Patient seen and examined this morning, pt complained of headache overnight which was resolved with tylenol. Current Facility-Administered Medications Medication Dose Route Frequency NaCl 0.9% iv flush bag 20 mL INTRAVENOUS PRN levETIRAcetam 500 mg tab(s) (KEPPRA) 500 mg ORAL BID NaCl 0.9% iv infusion 100 mL/hr INTRAVENOUS CONTINUOUS ondansetron 4 mg tab(s) (ZOFRAN) 4 mg ORAL q 6 H PRN Or ondansetron (PF) 4 mg injection (ZOFRAN) 4 mg INTRAVENOUS q 6 H PRN acetaminophen 1,000 mg tab(s) (TYLENOL) 1,000 mg ORAL q 6 H oxyCODONE IR 5 mg tab(s) (ROXICODONE) 5 mg ORAL q 4 H PRN fentaNYL 50 mcg/mL 50 mcg injection (SUBLIMAZE) 50 mcg INTRAVENOUS q 2 H PRN potassium chloride ER 40 mEq tab(s) (KLOR-CON) 40 mEq ORAL BID calcium gluconate iv piggyback 2 g in NaCl (iso-osmotic) 100 mL 2 g INTRAVENOUS q 2 H Objective VITAL SIGNS BP 129/80 Pulse 74 Temp (Src) 97.5 (Axillary) Resp 18 Ht 5' 2 (1.58m) Wt 154 lb 15.7 oz (70.3kg) SpO2 91% BMI 28.34 kg/(m2). O2 Therapy: Nasal Cannula, Liters: 2 Temp (24hrs), Av.3 ?C (97.4 ?F), Min:35.9 ?C (96.6 ?F), Max:36.7 ?C (98.1 ?F) Date 03/18/23 07 - 03/19/23 0603/19/23699 - 03/20/23 0659 Shift 5433-9227 6186-4972 5726-6999 24 Hour Total 4265-3024 7311-6309 8813-6682 24 Hour Total INTAKE IV 448 448 Volume (mL) (desmopressin 24 mcg in NaCl 0.9% 50 mL (DDAVP)) 50 50 Volume (mL) (calcium gluconate iv piggyback 2 g in NaCl (iso-osmotic) 100 mL) 200 200 Volume (mL) (NaCl 0.9% iv infusion) 198 198 Shift Total 448 448 OUTPUT Shift Total Weight (kg) 70.3 70.3 70.3 70.3 70.3 70.3 PHYSICAL EXAM: GENERAL: Alert. No distress. Resting comfortably. NEURO: Right sided weakness with right sided facial droop. Sensation grossly intact. HEENT: Normocephalic. EOMI. LUNGS: Unlabored breathing 2L nasal canula . Equal excursion bilaterally. CARDIAC: Regular rate. Good perfusion throughout. ABDOMEN: Soft, non-tender, non-distended. No rebound or guarding. EXTREMITIES: FUNES. No deformities. SKIN: periorbital ecchymosis to R eye DATA: Diagnostic tests reviewed for today's visit: No results for input(s): BODSITE, CTYPE, PH, PCO2, PO2, BE, HCO3, CO2CT, O2HB, COHB, MHGB, TEMP, PHTC, PCO2T, PO2T, O2AD in the last 72 hours. 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 Hospital course: 03/19: SICU admission, given DDAVP and platelets Small SDH along L base of brain Recent history of CVA Non-operative ICH management - DDAVP and platelets given in ED - Rpt CTH in 6 hrs. - Hold DVT chemo-ppx. - SCDs in place - Maintain systolic BP <160mmHg. - Keppra 500mg bid. - q1hr neuro checks. - NSGY following. - Neurology consulted for recent CVA - pending recs - pain and nausea prn CV: - MAPs>65 - EKG as indcated Resp: - 99% on O2 Therapy: Nasal Cannula 2L - Vent: N/A - CXR Findings: Clear lung dawson and Unremarkable chest x-ray GI: - DIET NPO - Bowel Regimen: none, no diet ordered - GI ppx: none - Renal: - strict Is/Os Creatinine Date Value Ref Range Status 03/19/2023 0.80 0.58 - 0.96 mg/dL Final 03/18/2023 0.78 0.58 - 0.96 (more content not included)... [facility] 05-31-2021 Note HNO ID: [id number] Author: Rahel Espinoza Service: ? Author Type: ? Type: Progress Notes Filed: 05/31/2021 1:38 PM Note Text: POPULATION HEALTH NAVIGATION OUTREACH Action/FYI Patient seeing provider outside [facility]. Contact made with patient or family member? yes Pt identified by name and :yes Outreach Outcome/Action Scheduled outside [facility]. Reason for Outreach Care gap - colonoscopy Payer: Payor: MMO MEDICARE / Plan: MMO MEDADVANTAGE HMO / Product Type: HMO / Care Gap Reviewed:: Health maintenance - colonoscopy Reminder: Reminder note to check Health Maintenance for items below Health Maintenance items due: COVID-19 VACCINE(1) Never done BP CONTROLLED (<130/80) Never done DTAP,TDAP,TD(1 - Tdap) Never done SHINGRIX VACCINE(1 of 2) Never done ADVANCE DIRECTIVE DISCUSSION Never done FECAL OCCULT BLOOD due on 04/20/2020 DEPRESSION SCREENING due on 10/07/2020 ANNUAL PCP TEAM CHRONIC DISEASE VISIT due on 11/30/2020 INFLUENZA(1) due on 05/23/2021 Advanced Directives Completed: Have you ever planned for future healthcare decisions with a power of civil litigation attorney, living will, or advance directives? Referrals: Message Sent to Practice: Navigation Signature: Rahel Espinoza May 31, 2021 1:36 PM [facility] 05-31-2021 Note Patient Outreach (NE TNAV) IBETH PONCE ([id number]) 1945 F Date Time Provider Department 05/31/21 RAHEL ESPINOZA During your visit today, we recorded the following information about you: Rahel Espinoza 05/31/2021 1:38 PM Signed POPULATION HEALTH NAVIGATION OUTREACH Action/FYI Patient seeing provider outside [facility]. Contact made with patient or family member? yes Pt identified by name and :yes Outreach Outcome/Action Scheduled outside [facility]. Reason for Outreach Care gap - colonoscopy Payer: Payor: O MEDICARE / Plan: MMO MEDADVANTAGE HMO / Product Type: HMO / Care Gap Reviewed:: Health maintenance - colonoscopy Reminder: Reminder note to check Health Maintenance for items below Health Maintenance items due: COVID-19 VACCINE(1) Never done BP CONTROLLED (<130/80) Never done DTAP,TDAP,TD(1 - Tdap) Never done SHINGRIX VACCINE(1 of 2) Never done ADVANCE DIRECTIVE DISCUSSION Never done FECAL OCCULT BLOOD due on 04/20/2020 DEPRESSION SCREENING due on 10/07/2020 ANNUAL PCP TEAM CHRONIC DISEASE VISIT due on 11/30/2020 INFLUENZA(1) due on 05/23/2021 Advanced Directives Completed: Have you ever planned for future healthcare decisions with a power of civil litigation attorney, living will, or advance directives? Referrals: Message Sent to Practice: Navigation Signature: Rahel Hankslyssa May 31, 2021 1:36 PM Allergies As of Date: 05/31/2021 Noted Allergy Reaction AMBIEN (ZOLPIDEM TARTRATE) 09/24/2006 Comments: hallucinations BACTRIM (SULFAMETHOXAZOLE-TRIMETH*2019 2 - Rash CODEINE 04/03/2006 Comments: tight band around heand AND couldn't breath DARVOCET-N 100 (PROPOXYPHENE N-AC*05/18/2008 5 - Intolerance Comments: severe nightmares HYTRIN (TERAZOSIN HCL) 04/03/2006 Comments: swelling of face IODINE 04/03/2006 14 - Other: See Comments Comments: face swelling after used in a scan but uses betadine and iodine and eats shellfish without problems. Has had iodine tablets in the past without issue NEURONTIN (GABAPENTIN) 03/08/2014 1 - Mental Status Change VICODIN (HYDROCODONE-ACETAMINOPHE*2007 5 - Intolerance Comments: very bad nightmares Date Reviewed: 12/01/2019 Reviewed by: Jocelynn Lloyd LPN - Fully Assessed Reason for Visit: Population Health Navigation Outreach [3910] Cmt: care gap - colonoscopy Prescriptions as of 05/31/2021 - diphenhydrAMINE (BENADRYL) 25 mg capsule Take 25 mg by mouth as needed. - acyclovir (ZOVIRAX) 400 mg tablet Take 1 tablet by mouth three times daily. For 7 days - polyethylene glycol 3350 (MIRALAX) 17 gram/dose powder Take 17 g by mouth as directed. - ubidecarenone Q-10 (CO Q-10) 10 mg cap Take 10 mg by mouth once daily. - omeprazole (PRILOSEC) 20 mg capsule Take 1 capsule by mouth daily before breakfast. 1/2 hr before meal. Problem List As Of Date 05/31/2021 Noted Resolved ESOPHAGEAL REFLUX [K21.9] GENERALIZED ANXIETY DIS [F41.1] 09/24/2006 DIFFUS CYSTIC MASTOPATHY [N60.19] 04/01/2008 Malignant neoplasm of upper-outer quadrant of r*04/13/2008 MALIG BELEN LYMPH-AXILLA/ARM [C77.3] 06/03/2008 Embolism and thrombosis of unspecified site [I7*11/04/2008 01/25/2014 KELOID, CHELOID SCAR [L91.0] 02/16/2009 09/04/2017 Abnormal mammogram, unspecified [R92.8] 01/26/2010 09/04/2017 Vaginal atrophy [N95.2] 08/07/2011 Hypokalemia [E87.6] 02/22/2014 09/04/2017 Valvular heart disease [I38] Age-related osteoporosis without current pathol*09/04/2017 Mild dilation of ascending aorta (HCC) [I77.810]09/04/2017 CVA (cerebrovascular accident) (HCC) [I63.9] 10/21/2018 10/21/2018 Encephalomalacia on imaging study [G93.89] 10/21/2018 Essential hypertension [I10] 09/07/2019 Encounter Status:Closed by RAHEL ESPINOZA on 05/31/21 [facility] 11-13-2020 Note Patient Outreach (CO VAMN) IBETH PONCE ([id number]) 1945 F Date Time Provider Department 11/13/20 YOLY BHARDWAJ During your visit today, we recorded the following information about you: Allergies As of Date: 11/13/2020 Noted Allergy Reaction AMBIEN (ZOLPIDEM TARTRATE) 09/24/2006 Comments: hallucinations BACTRIM (SULFAMETHOXAZOLE-TRIMETH*2019 2 - Rash CODEINE 04/03/2006 Comments: tight band around heand AND couldn't breath DARVOCET-N 100 (PROPOXYPHENE N-AC*05/18/2008 5 - Intolerance Comments: severe nightmares HYTRIN (TERAZOSIN HCL) 04/03/2006 Comments: swelling of face IODINE 04/03/2006 14 - Other: See Comments Comments: face swelling after used in a scan but uses betadine and iodine and eats shellfish without problems. Has had iodine tablets in the past without issue NEURONTIN (GABAPENTIN) 03/08/2014 1 - Mental Status Change VICODIN (HYDROCODONE-ACETAMINOPHE*2007 5 - Intolerance Comments: very bad nightmares Date Reviewed: 12/01/2019 Reviewed by: Jocelynn Lloyd LPN - Fully Assessed Order(s):SARS-COVID VACCINE 1ST DOSE APPT [[id number]] Order #: [id number] FUTURE Prescriptions as of 11/13/2020 Sig: DIPHENHYDRAMINE 25 MG CAPSULE Take 25 mg by mouth as needed. ACYCLOVIR 400 MG TABLET Take 1 tablet by mouth three * POLYETHYLENE GLYCOL 3350 17 G* Take 17 g by mouth as directe* COENZYME Q10 10 MG CAPSULE Take 10 mg by mouth once latanya* OMEPRAZOLE 20 MG CAPSULE,GERRY* Take 1 capsule by mouth daily* Problem List As Of Date 11/13/2020 Noted Resolved ESOPHAGEAL REFLUX [K21.9] More... GENERALIZED ANXIETY DIS [F41.1] 09/24/2006 DIFFUS CYSTIC MASTOPATHY [N60.19] 04/01/2008 Malignant neoplasm of upper-outer quadrant of r*04/13/2008 More... 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 Age-related osteoporosis without current pathol*09/04/2017 Mild dilation of ascending aorta (HCC) [I77.810]09/04/2017 More... CVA (cerebrovascular accident) (HCC) [I63.9] 10/21/2018 10/21/2018 More... Encephalomalacia on imaging study [G93.89] 10/21/2018 More... Essential hypertension [I10] 09/07/2019 Encounter Status:Closed by EPIC, PRODUSER on 11/16/20 [facility] documented as of this encounter (statuses as of 03/20/2023) [facility] History of Past illness Narrative* Problem Noted Date Diagnosed Date Resolved Date CVA (cerebrovascular accident) 10/21/2018 10/21/2018 Overview: Old cva noted on ct scan 10/10. No hx of previous symptomatology Hypokalemia 02/22/2014 09/04/2017 Abnormal mammogram, unspecified 01/26/2010 09/04/2017 KELOID, CHELOID SCAR 02/16/2009 017 Embolism and thrombosis of unspecified site 11/04/2008 01/25/2014 documented as of this encounter (statuses as of 04/08/2023) [facility] History of Past illness Narrative* Problem Noted Date Diagnosed Date Resolved Date CVA (cerebrovascular accident) 10/21/2018 10/21/2018 Overview: Old cva noted on ct scan 10/10. No hx of previous symptomatology Hypokalemia 02/22/2014 09/04/2017 Abnormal mammogram, unspecified 01/26/2010 09/04/2017 KELOID, CHELOID SCAR 02/16/2009 017 Embolism and thrombosis of unspecified site 11/04/2008 01/25/2014 documented as of this encounter (statuses as of 04/09/2023) [facility] Diagnosis Subdural bleeding (HCC)- Primary Subdural hemorrhage [facility] Diagnosis SDH (subdural hematoma) (HCC)- Primary Subdural hemorrhage [facility] Subdural bleeding (HCC) Subdural hemorrhage documented in this encounter [facility] Summary Purpose Family History No Family History Records FoundNo Family History Records FoundNo Family History Records Found Advance Directives No Advanced Directives Records FoundLatest Code Status on File Code Status Date Activated Date Inactivated Comments Full Code 03/19/2023 2:30 PM Full Code Order Discussed With: Patient Latest Code Status on File Code Status Date Activated Date Inactivated Comments Full Code 03/19/2023 2:30 PM 03/23/2023 12:40 AM Question Answer Comments Full Code Order Discussed With: Patient Latest Code Status on File Code Status Date Activated Date Inactivated Comments Full Code 03/19/2023 2:30 PM 03/23/2023 12:40 AM Question Answer Comments Full Code Order Discussed With: Patient Reason for Referral Specialty Diagnoses / Procedures Referred By Antonia davis Referred To Contact CT IMAGING Diagnoses Subdural bleeding (HCC) Procedures CT BRAIN WO IVCON CT HEAD/BRAIN W/O CONTRAST MATERIAL Darrick Kim PA-C [address] [place] [address] Ct Imaging Referral ID Status Reason Start Date Expiration Date Visits Requested Visits Authorized [id number] Pending Review Auto-Generat ed Referral 04/02/2023 04/17/2024 1 1 Additional Source Comments INFORMATION SOURCE (unrecogn ized section and content) DATE CREATED AUTHOR AUTHOR'S ORGANIZ ATION 11/12/2021 [facility] DATE CREATED AUTHOR AUTHOR'S ORGANIZ ATION 04/11/2023 [facility] Source Comments (unrecognize d section and content) In the event this informatio n is protected by the Federal Confidentiality of Alcohol and Drug Abuse Patient Records regulations: The Federal rules restrict any use of the information to criminally investigate or prosecute any alcohol or drug abuse patient.[facility] the event this information is protected by the Federal Confidentiality of Alcohol and Drug Abuse Patient Records regulations: The Federal rules restrict any use of the information to criminally investigate or prosecute any alcohol or drug abuse patient.[facility] the event this information is protected by the Federal Confidentiality of Alcohol and Drug Abuse Patient Records regulations: The Federal rules restrict any use of the information to criminally investigate or prosecute any alcohol or drug abuse patient.[facility] Care Teams (unrecognized sec tion and content) [employer] Or Welder Relationship Specialty Start Date End Date Stephanie Cuellar Chi [address] [address] PCP - General Gerontology 05/31/21 [employer]ator Or Welder Relationship Specialty Start Date End Date Stephanie Cuellar Chi [address] [address] PCP - General Gerontology 05/31/21 Reason for Visit (unrecogniz ed section and content) Specialty Diagnoses / Procedures Referred By Contac t Referred To Contact CT IMAGING Diagnoses Subdural bleeding (HCC) Procedures CT BRAIN WO IVCON CT HEAD/BRAIN W/O CONTRAST MATERIAL Darrick Kim PA-C [address] [place] [address] Ct Imaging Referral ID Status Reason Start Date Expiration Date V isits Requested Visits Authorized [id number] Closed Auto-Generate d Referral 04/02/2023 04/17/2024 1 1 FOR RECORDS PERTAINING TO PATIENTS WHO ARE OR HAVE BEEN ENROLLED IN A CHEMICAL DEPENDENCY/SUBSTANCEABUSE PROGRAM, SOME INFORMATION MAY BE OMITTED. This clinical summary was aggregated from multiple sources. Caution should be exercised in using it in the provision of clinical care. This summary normalizes information from multiple sources, and as a consequence, information in this document may materially change the coding, format and clinical context of patient data. In addition, data may be omitted in some cases. CLINICAL DECISIONS SHOULD BE BASED ON THE PRIMARY CLINICAL RECORDS. [facility] [employer], [facility]. provides no warranty or guarantee of the accuracy or completeness of information in this document.
[2023-10-27 14:36] LABS: Absolute Lymphocyte Count 1.68 X10^3/uL (0.83-4.51); Absolute Neutrophil Count 3.9 X10^3/uL (2.0-7.7); Basophil# 0.06 X10^3/uL; Basophil% 0.9 % (0-1); Eosinophil# 0.11 X10^3/uL; Eosinophils% 1.7 % (0-5); Hematocrit 40.6 % (37-47); Hemoglobin 13.1 g/dL (12.0-15.0); Lymphocyte # 1.68 X10^3/ul (0.83-4.51); Lymphocyte % 26.5 % (19-41); Mean Corp Hgb Conc 32.3 g/dL (32-36); Mean Corpuscular Hgb 30.2 pg (27.0-32.0); Mean Corpuscular Volume 93.5 fL (81-99); Mean Platelet Vol. 10.9 fl (6.2-12.0); Monocyte# 0.55 X10^3/uL; Monocyte% 8.7 % (0-10); NRBC Flagged by Analyzer 0 % (0-5); Neutrophil # 3.91 X10^3/uL (2.7-7.7); Neutrophil % 61.7 % (47-70); Platelet Count 210 K/mm3 (150-450); RBC Distribution Width CV 13.2 % (11.6-14.6); RBC Distribution Width SD 45.6 fl (35.1-43.9); Red Blood Count 4.34 M/mm3 (4.2-5.4); White Blood Count 6.3 K/mm3 (4.4-11.0)
[2023-10-27 14:55] LABS: Vitamin D,25 Hydroxy 35.8 ng/mL
[2023-10-27 15:05] LABS: ALB/GLOB Ratio 0.9 RATIO (0.9-2.4); AST(SGOT) 12 U/L (15-37); Alanine Aminotransfer ALT/SGPT 35 U/L (13-56); Albumin, Serum 3.7 g/dL (3.2-5.0); Alkaline Phosphatase 130 U/L (45-117); Anion Gap 7 (5-15); BUN 22 mg/dL (7-18); BUN/Creat Ratio 19.1 RATIO (10-20); Calcium,Total 9.1 mg/dL (8.5-10.1); Chloride 102 mmol/L (98-107); Creatinine, Serum 1.15 mg/dL (0.55-1.02); EST Glomerular Filtration Rate 48 mL/min (>60); Est Glom Filt Rate - Afr Amer 59 mL/min (>60); Glucose 118 mg/dL (74-106); Potassium 3.7 mmol/L (3.5-5.1); Protein, Total 7.7 g/dL (6.4-8.2); Sodium Level 137 mmol/L (136-145)
== END | disposition home or self-care (01) ==
LOC: POLAB3 13:13
PROVIDERS: PCP Family Medicine Geriatric Medicine; Visit Provider Family Medicine Geriatric Medicine
DX: E11.65 Type 2 diabetes mellitus with hyperglycemia (principal); R53.83 Other fatigue; E55.9 Vitamin D deficiency, unspecified
CPT/HCPCS: 36415; 80053; 82306; 84443; 85025

== ENCOUNTER → 2023-11-06 | Outpatient (CLI) | payer MEDICARE, SELFPAY ==
--- NOTE | 2023-11-06 13:35 | CT_ITS ---
STUDY: CTA CHEST REASON FOR EXAM: Female, 78 years old. TAA RADIATION DOSAGE (If Supplied By Facility): CTDIvol = ( 14.02 ) mGy, DLP = ( 424.18 ) mGycm TECHNIQUE: The examination was performed with the intravenous administration of IV 100mL Isovue-370. Post-processing of the angiographic images was performed, with multiplanar reformation and 3D reconstruction. Individualized dose optimization techniques were used for this CT. COMPARISON: Comparison is made with prior study dated February 04, 2023. FINDINGS: Normal enhancement of the main pulmonary artery and right and left pulmonary arteries. Normal enhancement of the bilateral peripheral pulmonary arteries. There is no demonstrated pulmonary embolism. There is aneurysmal dilatation of the ascending aorta. The transverse diameter of the ascending aorta measures 40.7 mm''s. Atherosclerotic calcification of the aorta. There is no demonstrated aortic dissection. There are calcifications of the coronary arteries. Normal mediastinum. Normal hilar regions. Normal visualized trachea and bronchi. The lungs are well expanded. Mild increased linear markings at the lung bases suggestive of scarring. Normal pleura. Normal chest wall structures. There are degenerative changes of thoracic spine. Diffuse fatty infiltration of the liver. CT/CTA Chest W/WO Contrast IMPRESSION: Mildly dilated root of the descending thoracic aorta with a transverse dimension of 40.7 mm. Electronically Signed: Alexis Lee MD at 14:54 EST ,
== END | disposition home or self-care (01) ==
LOC: CT 13:32
PROVIDERS: PCP Family Medicine Geriatric Medicine; Referring Provider Family Medicine Geriatric Medicine; Visit Provider Family Medicine Geriatric Medicine
DX: I71.20 Thoracic aortic aneurysm, without rupture, unspecified (principal)
CPT/HCPCS: 71275; Q9967

== ENCOUNTER → 2023-11-11 | Outpatient (CLI) | payer MEDICARE, SELFPAY ==
--- NOTE | 2023-11-11 15:25 | RAD_ITS ---
STUDY: X-RAY CHEST REASON FOR EXAM: Female, 78 years old. BRONCHITIS TECHNIQUE: PA and lateral views of the chest. COMPARISON: March 18, 2023 FINDINGS: There are surgical clips in the right axillary region. The lungs are clear and expanded. There is no demonstrated pleural abnormality. Normal size heart. Normal mediastinum and renee. Normal visualized pulmonary arteries. There is atherosclerotic calcification of the aortic arch with tortuosity. There is demineralization of the osseous structures. Normal visualized ribs, clavicles, and shoulders. There is no demonstrated abnormality of the visualized soft tissue structures of the upper abdomen. RAD/Chest PA and Lateral IMPRESSION: Degenerative and postoperative changes, as described above. No demonstrated acute cardiopulmonary process. Electronically Signed: Aydin Srinivasan MD at 22:50 EST ,
--- NOTE | 2023-11-11 15:25 | RAD_ITS ---
EXAM: XR ABDOMEN, 2 VIEWS CLINICAL INDICATION: FECAL IMPACTION TECHNIQUE: Frontal view of the abdomen/pelvis with upright view of the abdomen. COMPARISON: No relevant prior studies available. FINDINGS: LOWER THORAX: Lung bases are clear. INTRAPERITONEAL SPACE: No free air. GASTROINTESTINAL TRACT: Stool throughout the colon. No bowel obstruction. ORGANS: Prior cholecystectomy. No organomegaly. No abnormal calcifications. BONES/JOINTS: Degenerative changes of the spine. SOFT TISSUES: No acute pathology. VASCULATURE: Phlebolith at the inferior right pelvis. Atherosclerotic calcifications of the bilateral common carotid arteries and proximal superficial femoral arteries. Atherosclerotic calcifications of the nonaneurysmal aorta and iliac arteries. RAD/Abd Inc Decub and/or Erect IMPRESSION: Stool throughout the colon can be seen with constipation. Electronically Signed: Festus Malhotra MD at 5:01 EST ,
[2023-11-11 17:22] LABS: Absolute Lymphocyte Count 1.91 X10^3/uL (0.83-4.51); Absolute Neutrophil Count 5.1 X10^3/uL (2.0-7.7); Basophil# 0.05 X10^3/uL; Basophil% 0.6 % (0-1); Eosinophil# 0.11 X10^3/uL; Eosinophils% 1.4 % (0-5); Hematocrit 42.9 % (37-47); Hemoglobin 13.7 g/dL (12.0-15.0); Lymphocyte # 1.91 X10^3/ul (0.83-4.51); Lymphocyte % 23.7 % (19-41); Mean Corp Hgb Conc 31.9 g/dL (32-36); Mean Corpuscular Hgb 30.2 pg (27.0-32.0); Mean Corpuscular Volume 94.5 fL (81-99); Monocyte# 0.83 X10^3/uL; Monocyte% 10.3 % (0-10); NRBC Flagged by Analyzer 0 % (0-5); Neutrophil # 5.11 X10^3/uL (2.7-7.7); Neutrophil % 63.5 % (47-70); Platelet Count 206 K/mm3 (150-450); RBC Distribution Width SD 44.5 fl (35.1-43.9); Red Blood Count 4.54 M/mm3 (4.2-5.4); White Blood Count 8.1 K/mm3 (4.4-11.0)
[2023-11-11 17:50] LABS: ALB/GLOB Ratio 1.1 RATIO (0.9-2.4); AST(SGOT) 19 U/L (15-37); Alanine Aminotransfer ALT/SGPT 31 U/L (13-56); Albumin, Serum 3.7 g/dL (3.2-5.0); Alkaline Phosphatase 117 U/L (45-117); Anion Gap 5 (5-15); BUN 24 mg/dL (7-18); BUN/Creat Ratio 25.8 RATIO (10-20); Calcium,Total 9.2 mg/dL (8.5-10.1); Chloride 104 mmol/L (98-107); Creatinine, Serum 0.93 mg/dL (0.55-1.02); EST Glomerular Filtration Rate 62 mL/min (>60); Est Glom Filt Rate - Afr Amer 75 mL/min (>60); Globulin 3.3 g/dL (2.2-4.2); Glucose 91 mg/dL (74-106); Potassium 3.3 mmol/L (3.5-5.1); Sodium Level 138 mmol/L (136-145); Thyroid Stim Hormone (TSH) 1.02 uIU/mL (0.358-3.74)
== END | disposition home or self-care (01) ==
PROVIDERS: PCP Family Medicine Geriatric Medicine; Referring Provider Family Medicine Geriatric Medicine; Visit Provider Family Medicine Geriatric Medicine
DX: R53.1 Weakness (principal); N39.0 Urinary tract infection, site not specified
CPT/HCPCS: 36415; 71046; 74019; 80053; 84443; 85025; 87086; 87088

== ENCOUNTER → 2023-11-13 | Outpatient (CLI) | payer MEDICARE, SELFPAY | END | disposition home or self-care (01) | LOC: PSN 10:53 | PROVIDERS: PCP Family Medicine Geriatric Medicine; Referring Provider Family Medicine Geriatric Medicine; Visit Provider Family Medicine Geriatric Medicine | DX: R68.83 Chills (without fever) (principal) | CPT/HCPCS: 87631 ==

== ENCOUNTER → 2023-11-19 | Outpatient (CLI) | payer MEDICARE, SELFPAY ==
[2023-11-19 15:39] LABS: Anion Gap 6 (5-15); BUN 19 mg/dL (7-18); BUN/Creat Ratio 20.3 RATIO (10-20); Calcium,Total 9.6 mg/dL (8.5-10.1); Chloride 103 mmol/L (98-107); Creatinine, Serum 0.94 mg/dL (0.55-1.02); EST Glomerular Filtration Rate 61 mL/min (>60); Est Glom Filt Rate - Afr Amer 74 mL/min (>60); Glucose 129 mg/dL (74-106); Potassium 3.4 mmol/L (3.5-5.1); Sodium Level 138 mmol/L (136-145)
== END | disposition home or self-care (01) ==
LOC: POLAB3 14:33
PROVIDERS: PCP Family Medicine Geriatric Medicine; Visit Provider Family Medicine Geriatric Medicine
DX: E78.5 Hyperlipidemia, unspecified (principal)
CPT/HCPCS: 36415; 80048

== ENCOUNTER → 2024-01-26 | Outpatient (CLI) | payer MEDICARE, SELFPAY ==
--- NOTE | 2024-01-26 16:00 | MRI_ITS ---
STUDY: MRI BRAIN WITHOUT CONTRAST REASON FOR EXAM: Female, 78 years old. ISCHEMIC STROKE TECHNIQUE: Standardized multiplanar fat and water weighted pulse sequences were obtained. MRI examination brain fusion protocol including multiplanar multiecho noncontrast imaging. Contrast: No contrast administered. COMPARISON: CT of the head dated 05/30/2023 HEMISPHERES, CEREBELLUM AND BRAINSTEM: 1. The cerebral parenchyma, ventricular system, subarachnoid spaces have normal configuration and density. There is a normal gyral pattern. There is normal best/white differentiation. No midline shift.. 2. Diffuse involutional change, focal areas of remote infarct involving the justice radiata bilaterally, as well as the basal ganglia bilaterally. 3. No areas of fluid restriction or acute ischemic change. Chronic white matter changes are present within the brainstem. Bilateral remote lacunar infarct within the thalamus. 4. Several focal punctate areas of hemosiderin deposition susceptibility artifact including the LEFT thalamus and RIGHT deep white matter and basal ganglia consistent with areas of remote microhemorrhage. 5. No intraparenchymal mass, hemorrhage, or acute territorial infarct. 6. The cerebellum, brainstem, basilar and suprasellar cisterns have normal appearance. No Chiari malformation. PITUITARY: Soft tissue prominence of the pituitary given the patient''s age, maximal superior to inferior dimension estimated at approximately 10 mm. No suprasellar extension or destructive bony process however.. Remaining midline structures have normal appearance. CSF SPACES: Appropriate for age. No hydrocephalus. Basal cisterns are patent. VESSELS: 1. There are normal flow voids noted in the great vessels at the skull base ORBITS AND PARANASAL SINUSES: 1. Both globes, extraocular muscles, optic nerves and retrobulbar fat appear unremarkable. 2. Mucosal thickening in ethmoid and maxillary sinuses. Bilateral mastoid air cell disease also noted. BONY ELEMENTS: Bony elements of the cranial vault, facial skeleton and skull base have normal appearance. SCALP AND SOFT TISSUES: Normal appearance of the soft tissues of the scalp and the visualized face OTHER: None MRI/Brain without Contrast IMPRESSION: 1. Diffuse involutional change, extensive chronic deep white matter disease and areas of remote lacunar infarct bilaterally. 2. No intraparenchymal mass, hemorrhage, or acute territorial infarct. No acute parenchymal ischemia noted. 3. Prominence of the pituitary measuring approximately 10 mm in superior to inferior dimension. No focal nodules noted. No suprasellar extension or destructive bony process, however microadenoma is a consideration. If there are pituitary/endocrine abnormalities, consider evaluation with dedicated pituitary MRI protocol to exclude an occult pituitary mass. 4. Bilateral mastoid air cell disease is noted Electronically Signed: Martin Ramirez MD at 1:23 EDT ,
== END | disposition home or self-care (01) ==
LOC: MRI 15:49
PROVIDERS: PCP Family Medicine Geriatric Medicine; Referring Provider Family Medicine Geriatric Medicine; Visit Provider Family Medicine Geriatric Medicine
DX: Z86.73 Personal history of transient ischemic attack (TIA), and cerebral infarction without residual deficits (principal)
CPT/HCPCS: 70551

== ENCOUNTER → 2024-02-24 | Outpatient (CLI) | payer MEDICARE, SELFPAY | END | disposition home or self-care (01) | LOC: PSN 09:11 | PROVIDERS: PCP Family Medicine Geriatric Medicine; Referring Provider Family Medicine Geriatric Medicine; Visit Provider Family Medicine Geriatric Medicine | DX: R68.83 Chills (without fever) (principal) | CPT/HCPCS: 87631 ==

== ENCOUNTER → 2024-04-26 | Outpatient (CLI) | payer MEDICARE, SELFPAY ==
[2024-04-26 14:01] LABS: Absolute Lymphocyte Count 1.68 X10^3/uL (0.83-4.51); Basophil# 0.04 X10^3/uL; Basophil% 0.6 % (0-1); Eosinophil# 0.07 X10^3/uL; Eosinophils% 1.1 % (0-5); Hematocrit 39.5 % (37-47); Hemoglobin 12.9 g/dL (12.0-15.0); Lymphocyte # 1.68 X10^3/ul (0.83-4.51); Lymphocyte % 26.2 % (19-41); Mean Corp Hgb Conc 32.7 g/dL (32-36); Mean Corpuscular Hgb 30.9 pg (27.0-32.0); Mean Corpuscular Volume 94.7 fL (81-99); Mean Platelet Vol. 10.6 fl (6.2-12.0); Monocyte# 0.59 X10^3/uL; Monocyte% 9.2 % (0-10); NRBC Flagged by Analyzer 0 % (0-5); Neutrophil # 4.02 X10^3/uL (2.7-7.7); Neutrophil % 62.6 % (47-70); Platelet Count 208 K/mm3 (150-450); RBC Distribution Width CV 13.3 % (11.6-14.6); RBC Distribution Width SD 46.6 fl (35.1-43.9); Red Blood Count 4.17 M/mm3 (4.2-5.4); White Blood Count 6.4 K/mm3 (4.4-11.0)
[2024-04-26 14:36] LABS: Vitamin D,25 Hydroxy 46.2 ng/mL
[2024-04-26 14:44] LABS: ALB/GLOB Ratio 1.2 RATIO (0.9-2.4); AST(SGOT) 21 U/L (15-37); Alanine Aminotransfer ALT/SGPT 23 U/L (13-56); Albumin, Serum 3.7 g/dL (3.2-5.0); Alkaline Phosphatase 121 U/L (45-117); Anion Gap 5 (5-15); BUN 18 mg/dL (7-18); BUN/Creat Ratio 18.5 RATIO (10-20); Calcium,Total 8.7 mg/dL (8.5-10.1); Chloride 104 mmol/L (98-107); Cholesterol 220 mg/dL (200); Creatinine, Serum 0.97 mg/dL (0.55-1.02); EST Glomerular Filtration Rate 59 mL/min (>60); Est Glom Filt Rate - Afr Amer 71 mL/min (>60); Globulin 3.1 g/dL (2.2-4.2); Glucose 78 mg/dL (74-106); High Density Lipoprotein 52 mg/dL; Potassium 3.5 mmol/L (3.5-5.1); Protein, Total 6.8 g/dL (6.4-8.2); Sodium Level 140 mmol/L (136-145); Thyroid Stim Hormone (TSH) 1.01 uIU/mL (0.358-3.74); Triglycerides 150 mg/dL; Very Low Density Lipoprotein 30 mg/dL (5-40)
== END | disposition home or self-care (01) ==
LOC: POLAB3 13:39
PROVIDERS: PCP Family Medicine Geriatric Medicine; Visit Provider Family Medicine Geriatric Medicine
DX: E11.65 Type 2 diabetes mellitus with hyperglycemia (principal); R53.83 Other fatigue; E55.9 Vitamin D deficiency, unspecified; E78.5 Hyperlipidemia, unspecified
CPT/HCPCS: 36415; 80053; 80061; 82306; 84443; 85025

== ENCOUNTER → 2024-05-14 | Outpatient (CLI) | payer MEDICARE, SELFPAY ==
--- NOTE | 2024-05-14 15:36 | MRI_ITS ---
EXAM: MR HEAD WITHOUT AND WITH INTRAVENOUS CONTRAST, SELLA PROTOCOL CLINICAL INDICATION: PITUITARY ADENOMA TECHNIQUE: Magnetic resonance images of the sella without and with intravenous contrast in multiple planes using pituitary protocol. CONTRAST: IV 15 cc clariscan COMPARISON: MRI brain without contrast, 01/26/2024. FINDINGS: SELLA: Normal neurohypophysis identified. No focal adenohypophysis lesion. No deviation of the infundibulum. See below. CAVERNOUS SINUSES: Relative medial appearance of the cavernous internal carotid arteries bilaterally perhaps blending to the apparent enlargement of the pituitary gland. OPTIC CHIASM: No significant abnormality. Unremarkable chiasm and post chiasmatic tracts. ORBITS: No significant abnormality. Optic globes are unremarkable.. Unremarkable optic nerve sheath and nerves. Unremarkable intraconal and extraconal spaces. Extra-ocular muscles are unremarkable. BRAIN AND EXTRA-AXIAL SPACES: No restricted diffusion to indicate recent infarct or other pathology. Chronic lacunar infarct in and around the bilateral basal ganglia and justice radiata. Periventricular and subcortical T2 and T2 FLAIR hyperintense foci are nonspecific although most commonly due to chronic microvascular ischemic changes in a patient of this age. SINUSES: Mucus retention cyst in the right maxillary sinus. MRI/Brain W/WO Contrast IMPRESSION: No discrete evidence of pituitary abnormality is identified. Chronic ischemic changes. No additional acute findings. Electronically Signed: Vinnie Puente DO at 17:48 EDT ,
== END | disposition home or self-care (01) ==
PROVIDERS: PCP Family Medicine Geriatric Medicine; Referring Provider Family Medicine Geriatric Medicine; Visit Provider Family Medicine Geriatric Medicine
DX: D35.2 Benign neoplasm of pituitary gland (principal)
CPT/HCPCS: 70553; A9575

== ENCOUNTER → 2024-05-17 | Outpatient (CLI) | payer MEDICARE, SELFPAY | END | disposition home or self-care (01) | LOC: POLAB3 16:08 | PROVIDERS: PCP Family Medicine Geriatric Medicine; Visit Provider Family Medicine Geriatric Medicine | DX: R68.83 Chills (without fever) (principal); Z11.52 Encounter for screening for COVID-19 | CPT/HCPCS: 87631 ==

== ENCOUNTER → 2024-08-25 | Outpatient (CLI) | payer MEDICARE, SELFPAY ==
--- NOTE | 2024-08-25 15:58 | RAD_ITS ---
INDICATION: L HIP PAIN EXAMINATION/TECHNIQUE: X-RAY - XR Hip Unilateral with Pelvis when performed; 2-3 Views COMPARISON: No relevant prior comparison study available FINDINGS: PELVIC BONES: No displaced fracture, destructive or sclerotic lesions. Note that overlapping bowel shadows may however obscure fine detail. Sacroiliac joints are unremarkable. No widening of the pubic symphysis. HIPS: Narrowing of the joints bilaterally. Subtle sclerotic line in the left femoral neck. Fracture line however is not seen. No displaced fracture seen in this frontal view. SOFT TISSUES: No soft tissue swelling or gas. Atherosclerotic vascular calcifications. RAD/HIP, UNI W/ Pelvis 2-3 Views IMPRESSION: No evidence of displaced pelvic or hip fracture. If symptoms persist, MRI might be further value. Electronically Signed: Geoff Fitch MD at 17:58 EST ,
--- NOTE | 2024-08-25 16:00 | RAD_ITS ---
INDICATION: L SIDED SCIATICA EXAMINATION/TECHNIQUE: X-RAY - XR Spine Lumbar Min 4 Views COMPARISON: No relevant prior comparison study available FINDINGS: VERTEBRAE: Preserved vertebral body height. No fracture. Grade 1 anterolisthesis of L4 over L5 and L5 over S1. Minimal retrolisthesis of L1 over L2. Exaggerated lumbar lordosis. Mild levoscoliosis. Facet arthropathy of the lower lumbar spine. DISCS: Narrowing of L4-L5 and L5-S1 disc spaces. INCLUDED ABDOMEN: There is spotty calcifications of the abdominal aorta. RAD/L/S Spine Min 4 Views IMPRESSION: Degenerative changes of the lumbar spine as described above. Electronically Signed: Geoff Fitch MD at 17:49 EST ,
--- NOTE | 2024-08-25 16:27 | CT_ITS ---
STUDY: CT BRAIN WITHOUT CONTRAST REASON FOR EXAM: Female, 79 years old. CLOSED HEAD INJURY RADIATION DOSAGE (If Supplied By Facility): CTDIvol = ( 44.99 ) mGy, DLP = ( 829.85 ) mGycm TECHNIQUE: Transaxial CT imaging of the brain was performed without administration of intravenous contrast material. Individualized dose optimization techniques were used for this CT. COMPARISON: 05/30/2023 FINDINGS: Normal soft tissue structures. Normal calvarium. Normal size ventricles and extra-axial spaces for the patient''s age. There are areas of decreased attenuation within the white matter tracts of the supratentorial brain, consistent with microvascular disease changes. 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 Normal brainstem. Normal cerebellum. There is no intracranial hemorrhage. There are no findings of an acute ischemic infarction. Normal visualized paranasal sinuses. CT/Brain/Head without Contrast IMPRESSION: No change and no acute abnormality. Involutional changes and old infarcts as described. Electronically Signed: Gaurav Tian MD at 17:38 EST ,
== END | disposition home or self-care (01) ==
PROVIDERS: PCP Family Medicine Geriatric Medicine; Referring Provider Family Medicine Geriatric Medicine; Visit Provider Family Medicine Geriatric Medicine
DX: S09.90XA Unspecified injury of head, initial encounter (principal); M25.552 Pain in left hip; M54.32 Sciatica, left side; X58.XXXA Exposure to other specified factors, initial encounter
CPT/HCPCS: 70450; 72110; 73502

== ENCOUNTER 2024-08-26 16:21 | Inpatient (IN) | payer MEDICARE, SELFPAY ==
[2024-08-26] VITALS (18 sets, daily range): BP systolic 123–162; BP diastolic 75–127; PULSE 83–102; RESP 16–24; TEMP 36.4–36.6; O2SAT 75–98; BMI 28.5; BMI 29.0
--- NOTE | 2024-08-26 16:53 | EKG12_ITS ---
Test Reason : Blood Pressure : */* mmHG Vent. Rate : 86 BPM Atrial Rate : 86 BPM P-R Int : 190 ms QRS Dur : 82 ms QT Int : 374 ms P-R-T Axes : 46 -26 39 degrees QTcB Int : 447 ms Normal sinus rhythm Normal ECG Confirmed by Jose Roberto Rodriguez [id number]), subeditor ELIJAH SULLIVAN ([id number]) on 08/27/2024 1:46:16 PM Referred By: Confirmed By: Jose Roberto Rodriguez
--- NOTE | 2024-08-26 16:54 | CT_ITS ---
STUDY: CT CERVICAL SPINE WITHOUT CONTRAST REASON FOR EXAM: Female, 79 years old. Trauma RADIATION DOSAGE (If Supplied By Facility): CTDIvol = ( 16.34 ) mGy, DLP = ( 235.48 ) mGycm TECHNIQUE: High resolution transaxial imaging was performed without contrast material. Sagittal and coronal images were reconstructed. Individualized dose optimization techniques were used for this CT. COMPARISON: 06/11/2023 FINDINGS: No definite acute fracture/dislocation. The cervical junction is intact. C1-C2 articulation is intact. Curvature is within normal limits. There is normal alignment. Facet joints are intact at all levels bilaterally. No jumped facets. There is multilevel spondyloarthropathy. Multilevel degenerative disc disease seen. Multilevel loss of disc height. Multilevel posterior marginal osteophytes and disc bulges. Multilevel neural foraminal narrowing. Visualized paraspinal soft tissues and structures are unremarkable. CT/Spine Cervical without Contras IMPRESSION: There is no definite acute fracture/dislocation. Degenerative changes. Electronically Signed: Gaurav Tian MD at 19:13 EST ,
--- NOTE | 2024-08-26 16:54 | CT_ITS ---
STUDY: CT BRAIN WITHOUT CONTRAST REASON FOR EXAM: Female, 79 years old. Trauma RADIATION DOSAGE (If Supplied By Facility): CTDIvol = ( 44.99 ) mGy, DLP = ( 779.24 ) mGycm TECHNIQUE: Transaxial CT imaging of the brain was performed without administration of intravenous contrast material. Individualized dose optimization techniques were used for this CT. COMPARISON: 08/25/2024 FINDINGS: No change since yesterday''s exam. No acute intracranial abnormality. No blood. Again noted are involutional changes including white matter disease and numerous lacunar infarcts of the basal ganglia and deep white matter tracts. CT/Brain/Head without Contrast IMPRESSION: No change since yesterday. No acute abnormality. Electronically Signed: Gaurav Tian MD at 19:11 EST ,
--- NOTE | 2024-08-26 16:54 | CT_ITS ---
EXAM: CT CHEST, ABDOMEN AND PELVIS WITH INTRAVENOUS CONTRAST CLINICAL INDICATION: fall back pain, hypoxia -- TRAUMA ONLY: IV Contrast. wait for creatinine TECHNIQUE: Helically acquired images were obtained of the chest, abdomen and pelvis with intravenous contrast. This CT exam was performed using one or more of the following dose reduction techniques: automated exposure control, adjustment of the mA and/or kV according to patient size, and/or use of iterative reconstruction technique. CONTRAST: IV 100mL [id number] RADIATION DOSE: CTDIvol = 16.61 mGy, DLP = 1398.36 mGy-cm COMPARISON: 01/17/2022 FINDINGS: LIMITATIONS: Exam is limited by improper positioning of patient''s arms resulting in significant streak artifact. CHEST: LUNGS AND PLEURAL SPACES: Mild fibrotic changes throughout the lungs. No mass. No pleural effusion or thickening. No pneumothorax. HEART: Calcified coronary arteries. Heart size is normal. No pericardial effusion. MEDIASTINUM: Unremarkable. No mediastinal or hilar adenopathy. Esophagus is unremarkable. No hiatal hernia. THYROID: Unremarkable. No thyroid lesions. ABDOMEN: LIVER: Unremarkable. Homogeneous. No focal mass. GALLBLADDER AND BILE DUCTS: Cholecystectomy. No intra- or extrahepatic biliary ductal dilation. PANCREAS: Unremarkable. No focal cystic or solid mass. SPLEEN: Unremarkable. Normal size without focal cystic or solid mass. ADRENALS: Unremarkable. No nodules. KIDNEYS AND URETERS: Unremarkable. Normal renal size and position. No hydronephrosis. STOMACH AND BOWEL: Evaluation of the GI tract is limited by absence of oral contrast. Cannot exclude stomach wall thickening. No dilated loops of bowel or evidence for obstruction. Cannot exclude segmental thickening of the davis of the small or large bowel. Cannot exclude enteritis or colitis. Moderate diffuse fecal retention. Diverticulosis without definite diverticulitis. PELVIS: APPENDIX: Question previous appendectomy. BLADDER: Unremarkable. REPRODUCTIVE: Hysterectomy. CHEST, ABDOMEN and PELVIS: INTRAPERITONEAL SPACE: Unremarkable. No ascites or other fluid collection. No free air. BONES/JOINTS: Degenerative changes throughout the spine. No suspicious lytic or blastic abnormality. No fractures are seen. SOFT TISSUES: Unremarkable. No discrete abdominal or pelvic wall hernia. VASCULATURE: Heavily calcified aorta and iliac arteries. No aneurysm. LYMPH NODES: Unremarkable. No enlarged lymph nodes. CT/CT Chest, Abd, Pel w/Contrast IMPRESSION: No acute injuries are seen. No other definite acute or significant abnormality seen. Electronically Signed: Gaurav Tian MD at 19:26 EST ,
[2024-08-26] MEDS: MethylPREDNISolone 125 MG/2 ML Vial IV (17:05)
[2024-08-26] MEDS: DiphenhydrAMINE 50 MG/ML Syringe 25 MG IV (17:05)
[2024-08-26 17:18] LABS: Absolute Lymphocyte Count 0.58 X10^3/uL (0.83-4.51); Absolute Neutrophil Count 12.8 X10^3/uL (2.0-7.7); Basophil# 0.02 X10^3/uL; Basophil% 0.1 % (0-1); Eosinophil# 0.01 X10^3/uL; Eosinophils% 0.1 % (0-5); Hematocrit 40.4 % (37-47); Hemoglobin 14.2 g/dL (12.0-15.0); Lymphocyte # 0.58 X10^3/ul (0.83-4.51); Lymphocyte % 4.1 % (19-41); Mean Corp Hgb Conc 35.1 g/dL (32-36); Mean Corpuscular Hgb 33.1 pg (27.0-32.0); Mean Corpuscular Volume 94.2 fL (81-99); Mean Platelet Vol. 11.3 fl (6.2-12.0); Monocyte# 0.66 X10^3/uL; Monocyte% 4.6 % (0-10); NRBC Flagged by Analyzer 0 % (0-5); Neutrophil % 89.9 % (47-70); POSITIVE DIFFERENTIAL YES; Platelet Count 241 K/mm3 (150-450); RBC Distribution Width CV 13.3 % (11.6-14.6); RBC Distribution Width SD 45.9 fl (35.1-43.9); Red Blood Count 4.29 M/mm3 (4.2-5.4); White Blood Count 14.2 K/mm3 (4.4-11.0)
--- NOTE | 2024-08-26 17:18 | EX.ED.DYSGE1 ---
HPI History of Present Illness Chief Complaint: Fall Narrative Narrative: Patient is a 79-year-old female past medical history of CATHERINE, hypertension, anxiety, GERD who presents to the emergency department chief complaint of fall. Patient states that she was walking her dog outside when she slipped on ice falling backwards hitting the back of her head she states that she thinks that she may have passed out she is not recall. States that she had a fall yesterday and had a CT head done as she is on Plavix and her physician was concerned that she may have a brain bleed. She states that yesterday she was getting out of bed and had a cramp in her right leg causing her leg to give out causing her to fall. She also notes that she is having some back pain associated with this. Patient states that she is not on oxygen normally and is requiring oxygen here in the emergency department. Patient states that periodically she will have difficulty with the breathing. Patient states that she tried to take some pain medication to prevent her from coming here however she called her physician again and notified them that she fell and they advised her to come here for further evaluation management. [facility] Medical History Thoracic aortic aneurysm without rupture Breast cancer CATHERINE (obstructive sleep apnea) Essential hypertension GERD (gastroesophageal reflux disease) Anxiety Fatty liver Home Medications ?Medication ?Instructions ?Recorded ?Last Taken ?Type cholecalciferol (vitamin D3) 125 125 mcg PO DAILY vitamin 01/29/22 02/27/23 History mcg (5,000 unit) tablet citalopram 20 mg tablet 20 mg PO DAILY mental health 01/29/22 02/27/23 History aspirin 81 mg tablet,delayed 81 mg PO DAILY heart health 01/30/22 02/27/23 History release (Adult Low Dose Aspirin) pantoprazole 40 mg tablet,delayed 40 mg PO DAILY relfux 01/30/22 02/26/23 History release atorvastatin 40 mg tablet 40 mg PO QHS #30 tabs 03/01/23 Unknown Rx clopidogrel 75 mg tablet 75 mg PO DAILY #30 tabs 03/01/23 Unknown Rx metformin 500 mg tablet 500 mg PO BIDCM #60 tabs 03/01/23 Unknown Rx Allergy/AdvReac Type Severity Reaction Status Date / Time terazosin (From Hytrin) Allergy Severe Face Verified 08/26/24 16:22 swelling acetaminophen (From AdvReac Severe Nightmares Verified 08/26/24 16:22 Darvocet-N 100) propoxyphene (From AdvReac Severe Nightmares Verified 08/26/24 16:22 Darvocet-N 100) codeine AdvReac Unknown tight Verified 08/26/24 16:22 band around head and SOB gabapentin (From Neurontin) AdvReac Unknown Mental Verified 08/26/24 16:22 status change hydrocodone (From Vicodin) AdvReac Unknown Nightmares Verified 08/26/24 16:22 zolpidem (From Ambien) AdvReac Unknown Hallucinati Verified 08/26/24 16:22 ons Family History Father Myocardial infarction CVA (cerebral vascular accident) Surgical History History of abdominal hysterectomy History of laparoscopic cholecystectomy History of appendectomy History of partial mastectomy of right breast Social History Smoking Status: Never smoker alcohol intake: never substance use type: does not use ROS ROS ED ROS Narrative constitutional: Denies any fevers, chills, lightness, dizziness Eyes: Denies changes vision double vision blurry vision Cardiovascular: Denies chest pain or palpitations Respiratory: Denies coughing wheezing shortness of breath Abdomen: Denies abdominal pain nausea vomit diarrhea : Denies any urinary symptoms Neurological: Denies any numbness, weakness, tingling Musculoskeletal: Complains of back pain as noted above Skin: Denies rashes or lesions EXAM Physical Exam Narrative Exam Narrative: General: Patient was lying in bed rest comfortably did not appear to be acute distress Head: Atraumatic, normocephalic Eyes: PERRL body, EOMI blood, no conjunctival injection noted, no nasal septal hematomas noted, no concern for basilar skull fracture Neck: Soft, supple, trachea midline Cardiovascular: Regular rate and rhythm no murmurs gallops rubs noted Respiratory: Clear to auscultation bilaterally Abdomen: Soft, nondistended, tender to palpation, bowel sounds present x 4 Musculoskeletal: Patient has some tenderness palpation over the left rib cage, all of the bony prominences palpated and joints taken through full range of motion no pain elicited Extremities: +4/5 strength noted in the bilateral upper and lower extremities, no pedal edema on exam, radial pulses +2/4 in the bilateral per extremities Neurological: Patient is following commands knew that she was at [facility] years 2023 Skin: Warm, dry, intact Const Vital Signs: 08/26/24 16:22 08/26/24 16:55 08/26/24 16:58 Temperature 97.9 F Temperature Source Oral Pulse Rate 102 H 94 Respiratory Rate 18 24 H Respiratory Effort Normal Respiratory Depth Normal Respiratory Pattern Normal Blood Pressure 136/76 H 161/116 H Blood Pressure Mean 96 131 Pulse Ox 86 75 96 Oxygen Delivery Method Room Air Room Air Nasal Cannula Oxygen Flow Rate (L/min) 2 08/26/24 17:15 08/26/24 17:30 08/26/24 17:45 Temperature Temperature Source Pulse Rate 90 101 H 92 Respiratory Rate 21 H 23 H 24 H Respiratory Effort Respiratory Depth Respiratory Pattern Blood Pressure 124/75 H 141/105 H Blood Pressure Mean 91 117 Pulse Ox 95 95 Oxygen Delivery Method Nasal Cannula Oxygen Flow Rate (L/min) 2 08/26/24 18:05 08/26/24 18:15 08/26/24 18:30 Temperature Temperature Source Pulse Rate 92 89 Respiratory Rate 20 H 23 H Respiratory Effort Respiratory Depth Respiratory Pattern Blood Pressure 157/101 H 143/117 H Blood Pressure Mean 114 125 Pulse Ox 95 81 97 Oxygen Delivery Method Oxygen Flow Rate (L/min) 08/26/24 18:45 08/26/24 18:45 08/26/24 18:46 Temperature Temperature Source Pulse Rate 93 Respiratory Rate 21 H Respiratory Effort Respiratory Depth Respiratory Pattern Blood Pressure 162/127 H Blood Pressure Mean 139 Pulse Ox 79 95 96 Oxygen Delivery Method Room Air Nasal Cannula Nasal Cannula Oxygen Flow Rate (L/min) 2 2 08/26/24 19:00 08/26/24 19:02 08/26/24 19:45 Temperature 97.8 F Temperature Source Pulse Rate 92 92 91 Respiratory Rate 21 H 24 H 20 H Respiratory Effort Respiratory Depth Respiratory Pattern Blood Pressure 151/122 H 156/98 H Blood Pressure Mean 133 117 Pulse Ox 94 98 95 Oxygen Delivery Method Nasal Cannula Oxygen Flow Rate (L/min) 2 08/26/24 19:48 Temperature 97.8 F Temperature Source Oral Pulse Rate 91 Respiratory Rate 16 Respiratory Effort Respiratory Depth Respiratory Pattern Blood Pressure 156/98 H Blood Pressure Mean 117 Pulse Ox 97 Oxygen Delivery Method Nasal Cannula Oxygen Flow Rate (L/min) 2 MDM MDM MDM Narrative Medical decision making narrative: Patient is a 79-year-old female who presents to the Emergency Department chief complaint of mechanical fall after slipping on ice. Patient will have a workup performed here on the differential diagnose includes Melamin to intracranial hemorrhage, pneumothorax, hypoxia, rib fractures, intra-abdominal bleeding. Once workup is obtained reviewed she will be reevaluated. Patient once again is not chronically on oxygen and she was noted be hypoxic on room air to 75% here. She was placed on nasal cannula Patient's CBC reviewed and showed leukocytosis 14,000, hemoglobin 14.2, platelet count noted be normal at 241. Patient's INR normal at 1, sodium normal 134, potassium was low at 3.1 she was given 40 mill equivalents of potassium supplementation, creatinine was elevated 1.20. Patient's AST and ALT were 35 and 38 respectively. Patient's troponin was noted be normal at 13. Patient's EKG reviewed and independently interpreted by myself which showed sinus rhythm with a rate of 86 bpm. Patient's urinalysis showed 100 leukocyte esterase negative nitrates 25-50 white cells and 1+ bacteria this was sent for culture she was given a gram Rocephin. Patient's CT head and brain without contrast showed no acute findings. Patient CT cervical spine reviewed showed no definitive acute fracture or subluxation degenerative changes noted. Patient CT chest abdomen pelvis with IV contrast reviewed and showed no acute injuries. No other definite acute or significant abnormality noted. Patient was taken off of nasal cannula and desaturated to 86% on room air therefore she was placed back on oxygen. Patient will require admission for her multiple falls, hypoxia, UTI. Patient's case will be discussed with hospitalist for admission. Discussed case with hospitalist Dr. Higginbotham who accept patient for admission. Patient was notified is agreeable this plan all because concerns answered at bedside. Lab Data Labs: Laboratory Results - last 24 hr 08/26/24 08/26/24 16:50 16:58 WBC 14.2 H RBC 4.29 Hgb 14.2 Hct 40.4 MCV 94.2 MCH 33.1 H MCHC 35.1 RDW Std Deviation 45.9 H RDW Coeff of Jeffrey 13.3 Plt Count 241 MPV 11.3 Immature Gran % (Auto) 1.200 H Neut % (Auto) 89.9 H Lymph % (Auto) 4.1 L Mills % (Auto) 4.6 Eos % (Auto) 0.1 Baso % (Auto) 0.1 Absolute Neuts (auto) 12.8 H Absolute Lymphs (auto) 0.58 L Nucleated RBC % 0 PT 13.4 INR 1.0 APTT 23.8 L Sodium 134 L Potassium 3.1 L Chloride 99 Carbon Dioxide 27.0 Anion Gap 8 BUN 29 H Creatinine 1.20 H Estim Creat Clear Calc 34.13 Est GFR (MDRD) Af Amer 56 L Est GFR (MDRD) Non-Af 46 L BUN/Creatinine Ratio 24.2 H Glucose 250 H Calcium 9.1 Total Bilirubin 0.50 Direct Bilirubin 0.14 AST 35 ALT 38 Alkaline Phosphatase 139 H Troponin I High Sens 13 B-Natriuretic Peptide 110.8 H Total Protein 7.3 Albumin 4.1 Globulin 3.2 Urine Color Straw Urine Clarity Clear Urine pH 6.5 Ur Specific Crawford 1.010 Urine Protein 15 H Urine Glucose (UA) 100 H Urine Ketones Negative Urine Occult Blood Negative Urine Nitrite Negative Urine Bilirubin Negative Urine Urobilinogen Normal Ur Leukocyte Esterase 100 H Urine RBC 0 SEEN Urine WBC 25-50 SEEN Ur Squamous Epith Cells 0-5 SEEN Urine Bacteria 1+ Urine Mucus 0 SEEN Radiography Diagnostic Testing: Clinical Impression(s) from Imaging Studies Brain CT 08/26/24 16:54 IMPRESSION: No change since yesterday. No acute abnormality. Electronically Signed: Gaurav Tian MD at 19:11 EST Reading Location ID and State: [facility] / [place] , Service support , Cervical Spine CT 08/26/24 16:54 IMPRESSION: There is no definite acute fracture/dislocation. Degenerative changes. Electronically Signed: Gaurav Tian MD at 19:13 EST , Chest/Abdomen/Pelvis CT 08/26/24 16:54 IMPRESSION: No acute injuries are seen. No other definite acute or significant abnormality seen. Electronically Signed: Gaurav Tian MD at 19:26 EST , Discharge Plan Triage Chief Complaint: Fall ED Provider: Neal Hunter Dx/Rx/DC Orders Clinical Impression: Multiple falls, Acute hypoxic respiratory failure, Urinary tract infection Prescriptions: No Action pantoprazole 40 mg tablet,delayed release (DR/EC) 40 mg PO DAILY aspirin [Adult Low Dose Aspirin] 81 mg tablet,delayed release (DR/EC) 81 mg PO DAILY citalopram 20 mg tablet 20 mg PO DAILY cholecalciferol (vitamin D3) 125 mcg (5,000 unit) tablet 125 mcg PO DAILY atorvastatin 40 mg Tablet 40 mg PO QHS Qty: 30 2RF metformin 500 mg Tablet 500 mg PO BIDCM Qty: 60 2RF clopidogrel 75 mg Tablet 75 mg PO DAILY Qty: 30 2RF Primary Care Provider: [place] Cu[place] Chi Referrals: [place] Cu[place] Chi, MD [Primary Care Provider] - Print Language: Arabic Disposition Disposition: Acute Care Hospital [facility]
[2024-08-26 17:29] LABS: Partial Thromboplast Time 23.8 Seconds (24.1-36.2); Prothrombin Time (Protime)PT. 13.4 SECONDS (11.7-14.9)
[2024-08-26 17:38] LABS: BNP,B-Type NATRIURETIC PEPTIDE 110.8 pg/mL (0-100)
[2024-08-26 17:41] LABS: AST(SGOT) 35 U/L (15-37); Alanine Aminotransfer ALT/SGPT 38 U/L (13-56); Albumin, Serum 4.1 g/dL (3.2-5.0); Alkaline Phosphatase 139 U/L (45-117); Anion Gap 8 (5-15); BUN 29 mg/dL (7-18); BUN/Creat Ratio 24.2 RATIO (10-20); Bilirubin, Direct 0.14 mg/dL (0.00-0.30); Calcium,Total 9.1 mg/dL (8.5-10.1); Chloride 99 mmol/L (98-107); EST Glomerular Filtration Rate 46 mL/min (>60); Est Glom Filt Rate - Afr Amer 56 mL/min (>60); Estimated Creatinine Clearance 34.13 ml/min; Globulin 3.2 g/dL (2.2-4.2); Glucose 250 mg/dL (74-106); Potassium 3.1 mmol/L (3.5-5.1); Protein, Total 7.3 g/dL (6.4-8.2); Sodium Level 134 mmol/L (136-145); Troponin-I HS 13 pg/mL (3.0-54.0)
[2024-08-26 18:04] LABS: Color, Urine Straw (Yellow); Glucose, Dipstick 100 mg/dl (Normal); Ketone-Dipstick Negative (Negative); Leukocyte Esterase-Dipstick 100 /ul (Negative); Mucous, Urine 0 SEEN /hpf (<or=2+); Nitrite-Dipstick Negative (Negative); Occult Blood-Urine Negative /ul (Negative); Protein-Dipstick 15 mg/dl (Negative); Red Blood Cells-Urine 0 SEEN /hpf (0-5); Urine Bilirubin Dipstick Negative (Negative); Urine Clarity Clear (Clear); Urine Urobilinogen Normal (Normal); Urine pH 6.5 (5.0 - 8.0)
[2024-08-26 18:27] LABS: Bacteria 1+ /hpf (None Seen); Squamous Epithelial Cells - UA 0-5 SEEN /hpf (5-10); White Blood Cells 25-50 SEEN /hpf (0-5)
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
[2024-08-26] MEDS: Potassium Chloride Oral Soln 20 MEQ/15 ML UDC 40 MEQ PO (19:49)
[2024-08-26] MEDS: Ceftriaxone 1 GM/50 ML BAG IV (19:49)
--- NOTE | 2024-08-26 21:23 | ECHOD_ITS ---
Version 2 Reason For Study: syncope Procedure This was a 2D Doppler, Color Flow transthoracic echocardiogram. Exam performed portable in patient room. Left Ventricle Normal LV size. Left ventricular systolic function is normal. The left ventricular ejection fraction is 65 %. Stage 1 diastolic dysfunction. No regional wall motion abnormalities noted. Right Ventricle Normal RV size. Normal systolic function. Atria Normal left atrium. Normal right atrium. Mitral Valve There is mild mitral annular calcification. Tricuspid Valve Normal tricuspid valve. Mild tricuspid valve insufficiency. Pulmonary artery systolic pressure is 40 mmHg. Aortic Valve Trisinus/trileaflet aortic valve. Mild focal aortic valve calcification. Focal calcification 1cm by 0.6 cm on left cusp. Mild (1+) aortic valve insufficiency. Pulmonic Valve Normal pulmonic valve. Great Vessels Normal aortic root. The pulmonary artery is normal size. Inferior vena cava collapse with respiration. Pericardium/Pleural No pericardial effusion. MMode/2D Measurements & Calculations Ao root diam: 3.6 cm LAV(MOD-bp): 44.7 ml LVAd ap4: 22.5 cm2 LAV(MOD-bp) Indexed: 26.4 ml/m2 LVLd ap4: 8.0 cm LAV(MOD-sp2): 41.0 ml EDV(MOD-sp4): 51.0 ml LAV(MOD-sp4): 41.4 ml EDV(sp4-el): 53.4 ml LVAs ap4: 11.4 cm2 LVLs ap4: 6.6 cm ESV(MOD-sp4): 16.3 ml ESV(sp4-el): 16.8 ml EF(MOD-sp4): 68.0 % EF(sp4-el): 68.6 % SV(MOD-sp4): 34.7 ml SV(sp4-el): 36.6 ml LA A4 area: 17.2 cm2 SI(MOD-sp4): 20.5 ml/m2 Time Measurements MV dec time: 0.10 sec Doppler Measurements & Calculations MV E max artie: 59.9 cm/sec Lat Peak E' Artie: 5.9 cm/sec Med Peak E' Artie: 7.6 cm/sec MV A max artie: 113.4 cm/sec E/E' lat: 10.2 E/E' med: 7.8 MV E/A: 0.53 MV V2 max: 130.0 cm/sec Ao V2 max: 162.6 cm/sec MV max P.8 mmHg MV dec slope: 576.0 cm/sec2 Ao max P.6 mmHg MV V2 mean: 70.9 cm/sec Ao V2 mean: 109.2 cm/sec MV mean P.4 mmHg Ao mean P.5 mmHg MV V2 VTI: 26.1 cm Ao V2 VTI: 34.6 cm AV (velocity ratio): 0.82 AI max artie: 430.5 cm/sec LV V1 max: 129.0 cm/sec TR max artie: 307.5 cm/sec AI max P.2 mmHg LV V1 max P.7 mmHg TR max P.8 mmHg LV V1 mean P.6 mmHg AI dec slope: 205.5 cm/sec2 LV V1 mean: 87.3 cm/sec AI P1/2t: 613.4 msec LV V1 VTI: 28.4 cm ECHO/Echo Complete Interpretation Summary Normal LV size. Left ventricular systolic function is normal. The left ventricular ejection fraction is 65 %. Focal calcification 1cm by 0.6 cm on left cusp aortic valve Stage 1 diastolic dysfunction. Mild (1+) aortic valve insufficiency. Ordering Physician: Luis Horn Referring Physician: [place] Cu[place] Chi Performed By: Helen Carbone RCS
--- NOTE | 2024-08-26 21:23 | CDU_ITS ---
Reason For Study: Syncope Rt. Velocities/BP Lt. Velocities/BP Prox CCA 35.1/9.9 cm/sec. Prox CCA 58.1/13.9 cm/sec. Mid CCA 30.0/9.4 cm/sec. Mid CCA 46.7/14.7 cm/sec. Dist CCA 30.0/10.9 cm/sec. Dist CCA 40.5/14.2 cm/sec. Prox ICA 31.5/11.4 cm/sec. Prox ICA 36.2/10.6 cm/sec. Mid ICA 30.8/12.9 cm/sec. Mid ICA 38.4/12.7 cm/sec. Dist ICA 37.1/12.9 cm/sec. Dist ICA 40.5/17.0 cm/sec. Rt. ICA/CCA = 1.0. Lt. ICA/CCA = 0.9. Prox ECA 59.1/9.1 cm/sec. Prox ECA 30.0/6.1 cm/sec. Rt. Vert. 35.3/12.5 cm/sec. Lt. Vert. 31.3/10.1 cm/sec. Right Extracranial There is intimal thickening but no significant atherosclerotic plaque noted in the right common carotid artery. There is heterogeneous, irregular atherosclerotic plaque noted in the right internal carotid artery. There is heterogeneous, irregular atherosclerotic plaque noted in the right external carotid artery. Antegrade flow is noted in the right vertebral artery. Left Extracranial There is intimal thickening but no significant atherosclerotic plaque noted in the left common carotid artery. There is heterogeneous, irregular atherosclerotic plaque noted in the left internal carotid artery. There is heterogeneous, irregular atherosclerotic plaque noted in the left external carotid artery. Antegrade flow is noted in the left vertebral artery. Procedure Carotid Duplex [id number]. This is a Carotid Duplex examination using B-mode, color flow and specral Doppler. The exam was diagnostic. Exam performed in department. VL/Carotid Duplex Ultrasound Interpretation Summary Mild (<50%) stenosis right extracranial internal carotid. Mild (<50%) stenosis left extracranial internal carotid. Flow within the vertebral arteries is antegrade bilaterally. Ordering Physician: Luis Horn Referring Physician: [place] Chi Performed By: Pipe Michelle RVT
[2024-08-26 21:54] LABS: Alcohol, Blood (Medical)-Serum < 3.0 mg/dL
[2024-08-26 22:11] LABS: Thyroid Stim Hormone (TSH) 0.265 uIU/mL (0.358-3.740)
[2024-08-26] MEDS: 0.9% Saline Lock 10 ML Syringe IV (22:16)
[2024-08-26] MEDS: KCL 20MEQ in 0.9% NS 20 MEQ/1,000 ML IV.SOLN. 70 MEQ IV (22:16)
[2024-08-26 22:23] LABS: Hemoglobin A1c 6.4 % (3.8-5.6)
[2024-08-26] MEDS: MELATONIN 3 MG TABLET PO (23:09)
[2024-08-26] MEDS: Gabapentin 100 MG Capsule PO (23:09)
[2024-08-26] MEDS: Lactobacillis Acidophilus 1 CAP PO (23:09)
[2024-08-26] MEDS: Heparin Injection (Vial) 5,000 UNIT/ML VIAL 5000 UNIT SC (23:09)
[2024-08-27 01:30] LABS: Amphetamine Urine VISTA NEGATIVE (<1000 ng/mL); Barbiturate Urine VISTA NEGATIVE (< 200 ng/mL); Benzodiazepine Urine VISTA NEGATIVE (< 200 ng/mL); Cocaine Urine VISTA NEGATIVE (< 300 ng/mL); Ecstacy Urine VISTA NEGATIVE (< 500 ng/mL); Methadone Urine VISTA NEGATIVE (< 300 ng/mL); PCP Urine VISTA NEGATIVE (< 25 ng/mL); THC Urine VISTA NEGATIVE (< 50 ng/mL); Vista UDS pH Range 6
[2024-08-27 01:31] LABS: Vitamin B12 469 pg/mL (211-911)
[2024-08-27 04:10] VITALS: BP 157/99; PULSE 80; RESP 18; TEMP 36.5; O2SAT 95
[2024-08-27 04:43] VITALS: BMI 29.9
[2024-08-27 05:03] LABS: Absolute Lymphocyte Count 0.55 X10^3/uL (0.83-4.51); Absolute Neutrophil Count 9.9 X10^3/uL (2.0-7.7); Basophil# 0.01 X10^3/uL; Basophil% 0.1 % (0-1); Hematocrit 36.5 % (37-47); Lymphocyte # 0.55 X10^3/ul (0.83-4.51); Mean Corp Hgb Conc 32.9 g/dL (32-36); Mean Corpuscular Hgb 31.2 pg (27.0-32.0); Mean Corpuscular Volume 94.8 fL (81-99); Mean Platelet Vol. 10.8 fl (6.2-12.0); Monocyte# 0.41 X10^3/uL; Monocyte% 3.7 % (0-10); NRBC Flagged by Analyzer 0 % (0-5); Neutrophil % 90.3 % (47-70); POSITIVE DIFFERENTIAL YES; Platelet Count 172 K/mm3 (150-450); RBC Distribution Width CV 13.2 % (11.6-14.6); RBC Distribution Width SD 45.7 fl (35.1-43.9); Red Blood Count 3.85 M/mm3 (4.2-5.4)
[2024-08-27 05:39] LABS: ALB/GLOB Ratio 1.2 RATIO (0.9-2.4); AST(SGOT) 31 U/L (15-37); Alanine Aminotransfer ALT/SGPT 32 U/L (13-56); Albumin, Serum 3.4 g/dL (3.2-5.0); Alkaline Phosphatase 100 U/L (45-117); Anion Gap 6 (5-15); BUN 22 mg/dL (7-18); BUN/Creat Ratio 26.4 RATIO (10-20); Calcium,Total 8.8 mg/dL (8.5-10.1); Chloride 107 mmol/L (98-107); Cholesterol 228 mg/dL (200); Creatinine, Serum 0.83 mg/dL (0.55-1.02); EST Glomerular Filtration Rate 70 mL/min (>60); Est Glom Filt Rate - Afr Amer 85 mL/min (>60); Globulin 2.9 g/dL (2.2-4.2); Glucose 193 mg/dL (74-106); High Density Lipoprotein 67 mg/dL; Magnesium 2.3 mg/dL (1.6-2.6); Phosphorus 2.6 mg/dL (2.5-4.9); Potassium 3.9 mmol/L (3.5-5.1); Protein, Total 6.3 g/dL (6.4-8.2); Sodium Level 139 mmol/L (136-145); Triglycerides 107 mg/dL; Very Low Density Lipoprotein 21 mg/dL (5-40)
--- NOTE | 2024-08-27 05:55 | EKG12_ITS ---
Test Reason : AM EKG Blood Pressure : */* mmHG Vent. Rate : 77 BPM Atrial Rate : 77 BPM P-R Int : 186 ms QRS Dur : 82 ms QT Int : 386 ms P-R-T Axes : 43 -20 18 degrees QTcB Int : 436 ms Normal sinus rhythm Normal ECG When compared with ECG of 26-Aug-2024 17:22, MANUAL COMPARISON REQUIRED DATA IS UNCONFIRMED Confirmed by Jose Roberto Rodriguez ([id number]), non linear editor ELIJAH SULLIVAN ([id number]) on 08/27/2024 1:39:24 PM Referred By: Confirmed By: Jose Roberto Rodriguez
[2024-08-27] MEDS: Aspirin E.C. 81 MG Tablet PO (06:48)
[2024-08-27 07:18] VITALS: O2SAT 98
[2024-08-27 08:02] LABS: Free T3 1.4 pg/mL (2.18-3.98); T4 Free Direct 1.07 ng/dL (0.76-1.46)
--- NOTE | 2024-08-27 09:34 | PCM.PN.HOSP ---
Reason for Visit Reason for Visit: Diagnoses Hypokalemia (08/26/24) Low back pain, unspecified (08/26/24) Acute cystitis without hematuria (08/26/24) Urinary tract infection, site not specified (08/26/24) Other abnormalities of breathing (08/26/24) Repeated falls (08/26/24) Syncope and collapse (08/26/24) Hyperglycemia, unspecified (08/26/24) Adverse effect of unspecified drugs, medicaments and biological substances, initial encounter (08/26/24) Personal history of transient ischemic attack (TIA), and cerebral infarction without residual deficits (08/26/24) Objective Data Objective Data Vital Signs: Vital Signs Temp Pulse Resp BP Pulse Ox O2 Del Method O2 Flow Rate 97.7 F L 80 18 157/99 H 98 Nasal Cannula 2 08/27/24 04:10 08/27/24 04:10 08/27/24 04:10 08/27/24 04:10 08/27/24 07:18 08/27/24 07:45 08/27/24 07:18 Oxygen Flow Rate (L/min) 2 Oxygen Delivery Method Nasal Cannula Weight: 152 lb 8.958 oz Body Mass Index (BMI) 29.9 Intake & Output: Intake and Output for Last 24 Hours 08/25/24 08/26/24 08/27/24 23:59 23:59 23:59 Intake Total 50 / 50 0 / 0 Output Total 0 / 0 Balance 50 / 50 0 / 0 Lab / Micro Data 08/27/24 04:03 08/27/24 04:03 Labs: Laboratory Results - last 24 hr 08/26/24 16:50: WBC 14.2 H, RBC 4.29, Hgb 14.2, Hct 40.4, MCV 94.2, MCH 33.1 H, MCHC 35.1, RDW Std Deviation 45.9 H, RDW Coeff of Jeffrey 13.3, Plt Count 241, MPV 11.3, Immature Gran % (Auto) 1.200 H, Neut % (Auto) 89.9 H, Lymph % (Auto) 4.1 L, Piute % (Auto) 4.6, Eos % (Auto) 0.1, Baso % (Auto) 0.1, Absolute Neuts (auto) 12.8 H, Absolute Lymphs (auto) 0.58 L, Nucleated RBC % 0, PT 13.4, INR 1.0, APTT 23.8 L, Sodium 134 L, Potassium 3.1 L, Chloride 99, Carbon Dioxide 27.0, Anion Gap 8, BUN 29 H, Creatinine 1.20 H, Estim Creat Clear Calc 34.13, Est GFR (MDRD) Af Amer 56 L, Est GFR (MDRD) Non-Af 46 L, BUN/Creatinine Ratio 24.2 H, Glucose 250 H, Calcium 9.1, Total Bilirubin 0.50, Direct Bilirubin 0.14, AST 35, ALT 38, Alkaline Phosphatase 139 H, Troponin I High Sens 13, B-Natriuretic Peptide 110.8 H, Total Protein 7.3, Albumin 4.1, Globulin 3.2, Vitamin B12 469, Folate 11.80, TSH 0.265 L, Ethyl Alcohol < 3.0 08/26/24 16:58: Urine Color Straw, Urine Clarity Clear, Urine pH 6.5, Ur Specific Warren 1.010, Urine Protein 15 H, Urine Glucose (UA) 100 H, Urine Ketones Negative, Urine Occult Blood Negative, Urine Nitrite Negative, Urine Bilirubin Negative, Urine Urobilinogen Normal, Ur Leukocyte Esterase 100 H, Urine RBC 0 SEEN, Urine WBC 25-50 SEEN, Ur Squamous Epith Cells 0-5 SEEN, Urine Bacteria 1+, Urine Mucus 0 SEEN 08/26/24 17:39: Urine Opiates Screen NEGATIVE, Urine Methadone Screen NEGATIVE, Ur Barbiturates Screen NEGATIVE, Ur Phencyclidine Scrn NEGATIVE, Ur Amphetamines Screen NEGATIVE, MDMA (Ecstasy) Screen NEGATIVE, U Benzodiazepines Scrn NEGATIVE, Urine Cocaine Screen NEGATIVE, U Cannabinoids Screen NEGATIVE, Ur Drug Screen Comment 08/26/24 21:48: Hemoglobin A1c 6.4 H 08/27/24 04:03: WBC 11.0, RBC 3.85 L, Hgb 12.0, Hct 36.5 L, MCV 94.8, MCH 31.2, MCHC 32.9 D, RDW Std Deviation 45.7 H, RDW Coeff of Jeffrey 13.2, Plt Count 172, MPV 10.8, Immature Gran % (Auto) 0.900, Neut % (Auto) 90.3 H, Lymph % (Auto) 5.0 L, Piute % (Auto) 3.7, Eos % (Auto) 0.0, Baso % (Auto) 0.1, Absolute Neuts (auto) 9.9 H, Absolute Lymphs (auto) 0.55 L, Nucleated RBC % 0, Sodium 139, Potassium 3.9, Chloride 107, Carbon Dioxide 26.0, Anion Gap 6, BUN 22 H, Creatinine 0.83, Estim Creat Clear Calc 47.70, Est GFR (MDRD) Af Amer 85, Est GFR (MDRD) Non-Af 70, BUN/Creatinine Ratio 26.4 H, Glucose 193 H, Calcium 8.8, Phosphorus 2.6, Magnesium 2.3, Total Bilirubin 0.40, AST 31, ALT 32, Alkaline Phosphatase 100, Total Protein 6.3 L, Albumin 3.4, Globulin 2.9, Albumin/Globulin Ratio 1.2, Triglycerides 107, Cholesterol 228 H, LDL Cholesterol 140 H, VLDL Cholesterol 21, HDL Cholesterol 67, Free T4 1.07, Free T3 pg/dL 1.4 L Radiography Diagnostic Testing: Radiology Impression Brain CT 08/26/24 16:54 IMPRESSION: No change since yesterday. No acute abnormality. Electronically Signed: Gaurav Tian MD at 19:11 EST Reading Location ID and State: [facility] / [place] , Service support , Cervical Spine CT 08/26/24 16:54 IMPRESSION: There is no definite acute fracture/dislocation. Degenerative changes. Electronically Signed: Gaurav Tian MD at 19:13 EST Reading Location ID and State: [facility] / [place] , Service support , Chest/Abdomen/Pelvis CT 08/26/24 16:54 IMPRESSION: No acute injuries are seen. No other definite acute or significant abnormality seen. Electronically Signed: Gaurav Tian MD at 19:26 EST , Physical Exam Narrative Seen and examined. Patient is Sterets is slipped on the ice and fell on the back of her head and hurt her lower back TOO. Complain of mild headache. She also had 1 loose bowel movement. Patient unclear of passing out but she somehow crawled or came to the door from the driveway that is why her family members got aware. Even if she passed out it might be seconds. Physical exam General: Alert, Oriented x3, Cooperative HEENT: Atraumatic, PERRLA, EOMI, Normocephalic Oral: Oral mucosa dry. No Gingival or Mucosal Lesions/ Ulcerations Neck: Supple, No JVD, Negative Carotid Bruits Chest wall/Lungs: Air entry diminished in bilateral lung bases. No crepitation/rhonchi Cardiovascular: Regular rate, Regular Rhythm, Normal S1, Normal S2, No M/G/R Abdomen: Bowel Sounds Present, Soft, Non Tender, Non-Distended : Dysuria/burning micturition. Increased frequency. No renal angle tenderness. No suprapubic tenderness. Extremities: No edema, Capillary Refill Less than 3 Seconds Skin: No obvious hematoma or ulcer over the head. Musculoskeletal: Mild tenderness in occipital area of head and sacral area. No ulcer. Neurological: Cranial nerves II-XII grossly intact, DTR 2+/4. No acute focal neurological deficit. Psych/Mental Status: Flat affect Assessment & Plan Assessment/Plan (1) Urinary tract infection: QUALIFIERS: Hematuria presence: without hematuria Urinary tract infection type: acute cystitis Qualified Code(s): N30.00 - Acute cystitis without hematuria (2) Hypokalemia: (3) Hyperglycemia, drug-induced: (4) Multiple falls: (5) Near syncope: (6) Respiratory insufficiency: (7) History of CVA (cerebrovascular accident): (8) Back pain: QUALIFIERS: Back pain laterality: unspecified Back pain location: low back pain Chronicity: acute Sciatica presence: without sciatica Qualified Code(s): M54.50 - Low back pain, unspecified PLAN: Plan 79-year-old female was admitted with chief complaint of fall while walking her dog outside with slip on the ice and hitting her back of the head. She is not able to recall whether she passed out. 1. Possible UTI: Patient states she has burning micturition for 3 days. UA positive of WBC and LE. Preliminary started on IV ceftriaxone. Prelim urine culture shows no growth but will continue antibiotics because of positive patient's symptoms. 2. Hypokalemia of 3.1 mmol/L present on admission - Give supplemental KCl and then recheck level in the AM to ensure improvement. Hypokalemia resolved 3. DM-2; uncontrolled with Hyperglycemia of 250 mg/dL present on admission likely due to recent steroids - ADA diet. FSBS q. AC/HS plus SSI. Restart metformin as outpatient. 08/27: Glucose in BMP is 193. 4. Fall most likely no syncope history of CVA; with residual Right-sided weakness on BASA and clopidogrel and history of subsequent fall; resulting in ICH with progressively worsening generalized weakness with ambulatory dysfunction and increasingly frequent falls with CT head, C-spine and CXR this admission negative for acute pathologic findings. 2D echo is ordered. Stress was negative for acute ischemia. Microbiology Past 72 Hours 08/26/24 16:58 Urine, Clean Catch Urine Culture - Preliminary Culture exhibits no growth. Laboratory Results 08/26/24 16:50: WBC 14.2 H, RBC 4.29, Hgb 14.2, Hct 40.4, MCV 94.2, MCH 33.1 H, MCHC 35.1, RDW Std Deviation 45.9 H, RDW Coeff of Jeffrey 13.3, Plt Count 241, MPV 11.3, Immature Gran % (Auto) 1.200 H, Neut % (Auto) 89.9 H, Lymph % (Auto) 4.1 L, Piute % (Auto) 4.6, Eos % (Auto) 0.1, Baso % (Auto) 0.1, Absolute Neuts (auto) 12.8 H, Absolute Lymphs (auto) 0.58 L, Nucleated RBC % 0, PT 13.4, INR 1.0, APTT 23.8 L, Sodium 134 L, Potassium 3.1 L, Chloride 99, Carbon Dioxide 27.0, Anion Gap 8, BUN 29 H, Creatinine 1.20 H, Estim Creat Clear Calc 34.13, Est GFR (MDRD) Af Amer 56 L, Est GFR (MDRD) Non-Af 46 L, BUN/Creatinine Ratio 24.2 H, Glucose 250 H, Calcium 9.1, Total Bilirubin 0.50, Direct Bilirubin 0.14, AST 35, ALT 38, Alkaline Phosphatase 139 H, Troponin I High Sens 13, B-Natriuretic Peptide 110.8 H, Total Protein 7.3, Albumin 4.1, Globulin 3.2, Vitamin B12 469, Folate 11.80, TSH 0.265 L, Ethyl Alcohol < 3.0 08/26/24 16:58: Urine Color Straw, Urine Clarity Clear, Urine pH 6.5, Ur Specific Warren 1.010, Urine Protein 15 H, Urine Glucose (UA) 100 H, Urine Ketones Negative, Urine Occult Blood Negative, Urine Nitrite Negative, Urine Bilirubin Negative, Urine Urobilinogen Normal, Ur Leukocyte Esterase 100 H, Urine RBC 0 SEEN, Urine WBC 25-50 SEEN, Ur Squamous Epith Cells 0-5 SEEN, Urine Bacteria 1+, Urine Mucus 0 SEEN 08/26/24 17:39: Urine Opiates Screen NEGATIVE, Urine Methadone Screen NEGATIVE, Ur Barbiturates Screen NEGATIVE, Ur Phencyclidine Scrn NEGATIVE, Ur Amphetamines Screen NEGATIVE, MDMA (Ecstasy) Screen NEGATIVE, U Benzodiazepines Scrn NEGATIVE, Urine Cocaine Screen NEGATIVE, U Cannabinoids Screen NEGATIVE, Ur Drug Screen Comment 08/26/24 21:48: Hemoglobin A1c 6.4 H 08/27/24 04:03: WBC 11.0, RBC 3.85 L, Hgb 12.0, Hct 36.5 L, MCV 94.8, MCH 31.2, MCHC 32.9 D, RDW Std Deviation 45.7 H, RDW Coeff of Jeffrey 13.2, Plt Count 172, MPV 10.8, Immature Gran % (Auto) 0.900, Neut % (Auto) 90.3 H, Lymph % (Auto) 5.0 L, Piute % (Auto) 3.7, Eos % (Auto) 0.0, Baso % (Auto) 0.1, Absolute Neuts (auto) 9.9 H, Absolute Lymphs (auto) 0.55 L, Nucleated RBC % 0, Sodium 139, Potassium 3.9, Chloride 107, Carbon Dioxide 26.0, Anion Gap 6, BUN 22 H, Creatinine 0.83, Estim Creat Clear Calc 47.70, Est GFR (MDRD) Af Amer 85, Est GFR (MDRD) Non-Af 70, BUN/Creatinine Ratio 26.4 H, Glucose 193 H, Calcium 8.8, Phosphorus 2.6, Magnesium 2.3, Total Bilirubin 0.40, AST 31, ALT 32, Alkaline Phosphatase 100, Total Protein 6.3 L, Albumin 3.4, Globulin 2.9, Albumin/Globulin Ratio 1.2, Triglycerides 107, Cholesterol 228 H, LDL Cholesterol 140 H, VLDL Cholesterol 21, HDL Cholesterol 67, Free T4 1.07, Free T3 pg/dL 1.4 L 6. OA; with chronic debility and generalized weakness with ambulatory dysfunction PT/OT and Case Management to consult. On Tylenol. 7. Essential hypertension - Resume home regimen plus give prn IV Hydralazine for systolic blood pressure > 160 mmHg. 8. Hyperlipidemia; on atorvastatin - Maintain statin and check Lipid Profile. 9. Overweight; with BMI of 28.6 this admission plus CATHERINE - Weight loss will be recommended. Continue nocturnal CPAP. Check TSH. This complicates her case and may hamper recovery. 10. History of breast cancer; s/p partial Right mastectomy - Noted. 11. NAFLD - Noted. 12. History of thoracic aortic aneurysm; without rupture - Noted. 13. Depression with anxiety; on citalopram - Citalopram to be maintained as before. GERD; on pantoprazole - Resume pantoprazole as previous. 23. DVT prophylaxis - Heparin 5,000 U sq. BID plus SCD's. Total time: Approximately (nut not less than) 75 minutes. Charges/Coding Visit Charges Inpatient E&M: 23374 Subs Hosp L2
--- NOTE | 2024-08-27 10:00 | CASEMGMT ---
RN CM NOTE: RN CM to room to complete initial assessment. Pt is out of room at this time. Juan Ramon REIDN RN CM
[2024-08-27 10:10] VITALS: BP 125/91; PULSE 72; RESP 16; TEMP 36.8; O2SAT 93
--- NOTE | 2024-08-27 10:35 | CASEMGMT ---
RN?CM?BURN TABLE OPERATOR?CM?to room to meet with patient for initial transition planning/care coordination?assessment.?RN?CM?introduced self and role at [facility].? Pt voices understanding and consents to?assessment?at this time.? Pt sitting up in chair in room in no distress at this time.? in room visiting. Pt is A/O at this time and answers all questions appropriately.?? Care providers, pharmacy, and demographics verified/updated at this time. Strata: 2 PCP: Dr Cuellar Specialists:[facility] care technician in [place]. Dr Ya-derm and Dr Ya-optometry Preferred Pharmacy: [facility] Insurance: [facility] Prescription Benefit:?yes LNOK: Gilberto Living Arrangements: Lives w/ in one-story condo w/2 steps to enter. Pt is usually independent w/ADL's, but does need to assist at times. assists pt w/medications mgnt and does most of the home mgnt tasks. Per both pt and , though, it has been becoming more difficult for to manage both of their medications, stating he has difficulty remembering when to take meds and difficulty w/keeping things organized. Transportation:?Pt has her license and can drive, but only drives, if necessary. provides transportation. DME: ?States has the following DME:?built-in shower seat, railing on bed, cane. Pt does not have a walker and would like to get one and prefers [employer] as DME co. Pt also interested in medical alert info and this was provided at this time. Pt states no need for further DME at this time.? HHC/SNF: No hx of SNF. Has had HHC in the past. Discussed discharge planning. Pt wishes to discharge home and wants [facility], declining list of other HHC options unless [facility] unable to accept her. Call placed to Ana @ [facility] and referral made. Order placed for HHC: SN and PT/OT. Discussed CCN as well. Pt interested in this as well and aware this would most likely be after she is discharged from [facility]. They voice understanding. is interested for CCN for himself as well. Referral placed for CCN for pt w/note attached that pt is interested in this. Per Jesus, she will reach out to PCP to obtain referral for . CM?to follow for any further discharge planning/needs.? Pt and voice no further concerns/needs at this time.? Advised them to ask for?CM?if any further questions/concerns/needs arise.? They voice understanding. PLAN:??Home w/HHC and walker. CCN referral also made to follow after HHC. Juan Ramon BSN?RN?CM
[2024-08-27] MEDS: Zinc Sulfate 50 mg zinc (220 mg) ORAL capsule PO (11:03)
[2024-08-27] MEDS: predniSONE 10 MG Tablet PO ×2 (11:04→16:33)
[2024-08-27] MEDS: Pantoprazole Sodium 40 MG Tablet PO (11:04)
[2024-08-27] MEDS: Citalopram 10 MG Tablet PO (11:04)
[2024-08-27] MEDS: Ascorbic Acid 500 MG Tablet 1000 MG PO ×2 (11:04→16:33)
[2024-08-27] MEDS: Cholecalciferol (Vit D3) 125 MCG CAPSULE (5,000 UNITS) PO (11:05)
[2024-08-27] MEDS: Ceftriaxone 1 GM/50 ML BAG IV (15:01)
[2024-08-27] MEDS: Clopidogrel Bisulfate 75 MG Tablet PO (15:03)
[2024-08-27] MEDS: Lactobacillis Acidophilus 1 CAP PO ×3 (15:03→21:08)
[2024-08-27 15:04] VITALS: BP 143/93; PULSE 73; RESP 16; TEMP 36.5; O2SAT 92
--- NOTE | 2024-08-27 15:37 | STRESSREP ---
Stress Test Report Pharmacologic myocardial perfusion stress test. 79-year-old lady with a history of chest pain Resting EKG demonstrates sinus rhythm with a rate of 82 bpm. Resting blood pressure is 138/88 mmHg. 0.4 mg of regadenoson was infused per usual protocol followed by rapid intravenous saline flush injection. Continuous EKG monitoring was performed. The maximum heart rate was 88 bpm which was 62%of max impacted heart rate the maximum workload was 1 metabolic equivalent. At rest there were no ST or T wave changes noted to suggest ischemia and at peak infusion nonspecific ST changes were noted which did not meet the criteria for ischemia. No clinical angina is noted. The final blood pressure was 138/90mmHg. Myocardial perfusion protocol. 12 mCi of technetium 99m sestamibi was injected at rest. 0.4 mg of regadenoson was infused per usual protocol. At peak infusion 34.9 mCi of technetium 99m sestamibi was injected stress images were obtained stress and rest images were reconstructed and compared in the short axis vertical long and horizontal long axis. Gated images were also obtained. Perfusion SPECT analysis: Review of the stress images demonstrate normal uptake of tracer noted in all areas of the myocardium. The resting images similar demonstrated normal uptake of tracer noted in all areas of the myocardium. No areas of reversibility are noted to suggest ischemia and no previous infarct is noted. Gated SPECT analysis: The gated ejection fraction is 66%. Conclusion: Normal pharmacologic myocardial perfusion stress test. Preserved ejection fraction.
--- NOTE | 2024-08-27 16:02 | CASEMGMT ---
LUH CAMARILLO received call from [facility] they are able to accept patient with planned start of care for Friday. [facility] updated patient. Patient had no further questions. [facility] placed green sheet on chart with script for walker.
[2024-08-27] MEDS: Acetaminophen 500 MG Tablet 1000 MG PO (16:32)
[2024-08-27 17:32] LABS: Bedside Glucose 155 mg/dL (74-106)
[2024-08-27] MEDS: Insulin Lispro 100 UNIT/ML INSULN.PEN SC ×2 (17:47→21:09)
[2024-08-27] MEDS: Insulin Glargine-YFGN 100 UNIT/ML Pen SC (17:48)
[2024-08-27] MEDS: Ibuprofen 600 MG Tablet PO (19:18)
[2024-08-27 21:04] VITALS: BP 135/89; PULSE 81; RESP 18; TEMP 36.2; O2SAT 95
[2024-08-27] MEDS: Gabapentin 100 MG Capsule PO (21:08)
[2024-08-27] MEDS: Heparin Injection (Vial) 5,000 UNIT/ML VIAL 5000 UNIT SC (21:08)
[2024-08-27 23:17] LABS: Bedside Glucose 168 mg/dL (74-106)
[2024-08-28 03:00] VITALS: BP 162/93; PULSE 73; RESP 18; TEMP 36.3; O2SAT 99
[2024-08-28 05:56] VITALS: BMI 29.8
[2024-08-28 07:16] LABS: Bedside Glucose 120 mg/dL (74-106)
[2024-08-28 07:21] LABS: Magnesium 2.7 mg/dL (1.6-2.6); Phosphorus 4.4 mg/dL (2.5-4.9)
[2024-08-28 07:42] LABS: Hemoglobin A1c 10.5 % (3.8-5.6)
[2024-08-28 08:59] VITALS: BP 156/89; PULSE 71; RESP 18; TEMP 36.1; O2SAT 96
[2024-08-28] MEDS: Zinc Sulfate 50 mg zinc (220 mg) ORAL capsule PO (09:05)
[2024-08-28] MEDS: Cholecalciferol (Vit D3) 125 MCG CAPSULE (5,000 UNITS) PO (09:05)
[2024-08-28] MEDS: Citalopram 10 MG Tablet PO (09:05)
[2024-08-28] MEDS: predniSONE 10 MG Tablet PO (09:06)
[2024-08-28] MEDS: Pantoprazole Sodium 40 MG Tablet PO (09:06)
[2024-08-28] MEDS: Heparin Injection (Vial) 5,000 UNIT/ML VIAL 5000 UNIT SC (09:06)
[2024-08-28] MEDS: Aspirin E.C. 81 MG Tablet PO (09:06)
[2024-08-28] MEDS: Lactobacillis Acidophilus 1 CAP PO (09:06)
[2024-08-28] MEDS: Ascorbic Acid 500 MG Tablet 1000 MG PO (09:06)
[2024-08-28] MEDS: Insulin Glargine-YFGN 100 UNIT/ML Pen SC (09:06)
[2024-08-28] MEDS: Ceftriaxone 1 GM/50 ML BAG IV (09:12)
[2024-08-28] MEDS: Clopidogrel Bisulfate 75 MG Tablet PO (09:17)
--- NOTE | 2024-08-28 09:45 | PN.HOSP_ITS ---
Reason for Visit Reason for Visit: Diagnoses Hypokalemia (08/26/24) Low back pain, unspecified (08/26/24) Acute cystitis without hematuria (08/26/24) Urinary tract infection, site not specified (08/26/24) Other abnormalities of breathing (08/26/24) Repeated falls (08/26/24) Syncope and collapse (08/26/24) Hyperglycemia, unspecified (08/26/24) Adverse effect of unspecified drugs, medicaments and biological substances, initial encounter (08/26/24) Personal history of transient ischemic attack (TIA), and cerebral infarction without residual deficits (08/26/24) Objective Data Objective Data Vital Signs: Vital Signs Temp Pulse Resp BP Pulse Ox O2 Del Method O2 Flow Rate 97.0 F L 71 18 156/89 H 96 Room Air 2 08/28/24 08:59 08/28/24 08:59 08/28/24 08:59 08/28/24 08:59 08/28/24 08:59 08/28/24 08:59 08/28/24 08:26 Oxygen Flow Rate (L/min) 2 Oxygen Delivery Method Room Air Weight: 152 lb 12.485 oz Body Mass Index (BMI) 29.8 Intake & Output: Intake and Output for Last 24 Hours 08/26/24 08/27/24 08/28/24 23:59 23:59 23:59 Intake Total 50 / 50 1050.00 / 1600.00 950 / 950 Output Total 0 / 0 Balance 50 / 50 1050.00 / 1600.00 950 / 950 Lab / Micro Data 08/27/24 04:03 08/27/24 04:03 Labs: Laboratory Results - last 24 hr 08/27/24 16:37: POC Glucose 155 H 08/27/24 21:07: POC Glucose 168 H 08/28/24 05:45: Hemoglobin A1c 10.5 H, Phosphorus 4.4, Magnesium 2.7 H 08/28/24 06:39: POC Glucose 120 H Micro: Microbiology 08/26/24 16:58 Urine, Clean Catch Urine Culture - Final Mixed Gram Positive Organisms Radiography Diagnostic Testing: Radiology Impression Carotid Duplex 08/26/24 21:23 Interpretation Summary Mild (<50%) stenosis right extracranial internal carotid. Mild (<50%) stenosis left extracranial internal carotid. Flow within the vertebral arteries is antegrade bilaterally. Ordering Physician: Luis Horn Referring Physician: North Cuellar Chi Performed By: Pipe Michelle Seng Echocardiogram 08/26/24 21:23 Interpretation Summary Normal LV size. Left ventricular systolic function is normal. The left ventricular ejection fraction is 65 %. Focal calcification 1cm by 0.6 cm on left cusp aortic valve Stage 1 diastolic dysfunction. Mild (1+) aortic valve insufficiency. Ordering Physician: Luis Horn Referring Physician: North Cuellar Chi Performed By: Helen Carbone RCS Physical Exam Narrative Seen and examined. Patient is [place] is slipped on the ice and fell on the back of her head and hurt her lower back TOO. Complain of mild headache. She also had 1 loose bowel movement. Patient unclear of passing out but she somehow crawled or came to the door from the driveway that is why her family members got aware. Even if she passed out it might be seconds. Physical exam General: Alert, Oriented x3, Cooperative HEENT: Atraumatic, PERRLA, EOMI, Normocephalic Oral: Oral mucosa dry. No Gingival or Mucosal Lesions/ Ulcerations Neck: Supple, No JVD, Negative Carotid Bruits Chest wall/Lungs: Air entry diminished in bilateral lung bases. No crepitation/rhonchi Cardiovascular: Regular rate, Regular Rhythm, Normal S1, Normal S2, No M/G/R Abdomen: Bowel Sounds Present, Soft, Non Tender, Non-Distended : Dysuria/burning micturition. Increased frequency. No renal angle tenderness. No suprapubic tenderness. Extremities: No edema, Capillary Refill Less than 3 Seconds Skin: No obvious hematoma or ulcer over the head. Musculoskeletal: Mild tenderness in occipital area of head and sacral area. No ulcer. Neurological: Cranial nerves II-XII grossly intact, DTR 2+/4. No acute focal neurological deficit. Psych/Mental Status: Flat affect Assessment & Plan Assessment/Plan (1) Urinary tract infection: QUALIFIERS: Urinary tract infection type: acute cystitis H ematuria presence: without hematuria Qualified Code(s): N30.00 - Acute cystitis without hematuria (2) Hypokalemia: (3) Hyperglycemia, drug-induced: (4) Multiple falls: (5) Near syncope: (6) Respiratory insufficiency: (7) History of CVA (cerebrovascular accident): (8) Back pain: QUALIFIERS: Back pain location: low back pain Chronicity: acute Back pain laterality: unspecified Sciatica presence: without sciatica Q ualified Code(s): M54.50 - Low back pain, unspecified PLAN: Plan 79-year-old female was admitted with chief complaint of fall while walking her dog outside with slip on the ice and hitting her back of the head. She is not able to recall whether she passed out. 1. Possible UTI: Patient states she has burning micturition for 3 days. UA positive of WBC and LE. Preliminary started on IV ceftriaxone. Prelim urine culture shows no growth but will continue antibiotics because of positive patient's symptoms. 2. Hypokalemia of 3.1 mmol/L present on admission - Give supplemental KCl and then recheck level in the AM to ensure improvement. Hypokalemia resolved 3. DM-2; uncontrolled with Hyperglycemia of 250 mg/dL present on admission likely due to recent steroids - ADA diet. FSBS q. AC/HS plus SSI. Restart metformin as outpatient. 08/27: Glucose in BMP is 193. 4. Fall most likely no syncope history of CVA; with residual Right-sided weakness on BASA and clopidogrel and history of subsequent fall; resulting in ICH with progressively worsening generalized weakness with ambulatory dysfunction and increasingly frequent falls with CT head, C-spine and CXR this admission negative for acute pathologic findings. 2D echo is ordered. Stress was negative for acute ischemia. Microbiology Past 72 Hours 08/26/24 16:58 Urine, Clean Catch Urine Culture - Preliminary Culture exhibits no growth. Laboratory Results 08/26/24 16:50: WBC 14.2 H, RBC 4.29, Hgb 14.2, Hct 40.4, MCV 94.2, MCH 33.1 H, MCHC 35.1, RDW Std Deviation 45.9 H, RDW Coeff of Jeffrey 13.3, Plt Count 241, MPV 11.3, Immature Gran % (Auto) 1.200 H, Neut % (Auto) 89.9 H, Lymph % (Auto) 4.1 L , [place] % (Auto) 4.6, Eos % (Auto) 0.1, Baso % (Auto) 0.1, Absolute Neuts (auto) 12.8 H, Absolute Lymphs (auto) 0.58 L, Nucleated RBC % 0, PT 13.4, INR 1.0, APTT 23.8 L, Sodium 134 L, Potassium 3.1 L, Chloride 99, Carbon Dioxide 27.0, Anion Gap 8, BUN 29 H, Creatinine 1.20 H, Estim Creat Clear Calc 34.13, Est GFR (MDRD) Af Amer 56 L, Est GFR (MDRD) Non-Af 46 L, BUN/Creatinine Ratio 24.2 H, Glucose 250 H, Calcium 9.1, Total Bilirubin 0.50, Direct Bilirubin 0.14, AST 35, ALT 38, Alkaline Phosphatase 139 H, Troponin I High Sens 13, B-Natriuretic Peptide 110.8 H, Total Protein 7.3, Albumin 4.1, Globulin 3.2, Vitamin B12 469, Folate 11.80, TSH 0.265 L, Ethyl Alcohol < 3.0 08/26/24 16:58: Urine Color Straw, Urine Clarity Clear, Urine pH 6.5, Ur Specific [place] 1.010, Urine Protein 15 H, Urine Glucose (UA) 100 H, Urine Ketones Negative, Urine Occult Blood Negative, Urine Nitrite Negative, Urine Bilirubin Negative, Urine Urobilinogen Normal, Ur Leukocyte Esterase 100 H, Urine RBC 0 SEEN, Urine WBC 25-50 SEEN, Ur Squamous Epith Cells 0-5 SEEN, Urine Bacteria 1+, Urine Mucus 0 SEEN 08/26/24 17:39: Urine Opiates Screen NEGATIVE, Urine Methadone Screen NEGATIVE, Ur Barbiturates Screen NEGATIVE, Ur Phencyclidine Scrn NEGATIVE, Ur Amphetamines Screen NEGATIVE, MDMA (Ecstasy) Screen NEGATIVE, U Benzodiazepines Scrn NEGATIVE, Urine Cocaine Screen NEGATIVE, U Cannabinoids Screen NEGATIVE, Ur Drug Screen Comment 08/26/24 21:48: Hemoglobin A1c 6.4 H 08/27/24 04:03: WBC 11.0, RBC 3.85 L, Hgb 12.0, Hct 36.5 L, MCV 94.8, MCH 31.2, MCHC 32.9 D, RDW Std Deviation 45.7 H, RDW Coeff of Jeffrey 13.2, Plt Count 172, MPV 10.8, Immature Gran % (Auto) 0.900, Neut % (Auto) 90.3 H, Lymph % (Auto) 5.0 L, [place] % (Auto) 3.7, Eos % (Auto) 0.0, Baso % (Auto) 0.1, Absolute Neuts (auto) 9.9 H, Absolute Lymphs (auto) 0.55 L, Nucleated RBC % 0, Sodium 139, Potassium 3.9, Chloride 107, Carbon Dioxide 26.0, Anion Gap 6, BUN 22 H, Creatinine 0.83, Estim Creat Clear Calc 47.70, Est GFR (MDRD) Af Amer 85, Est GFR (MDRD) Non-Af 70, BUN/Creatinine Ratio 26.4 H, Glucose 193 H, Calcium 8.8, Phosphorus 2.6, Magnesium 2.3, Total Bilirubin 0.40, AST 31, ALT 32, Alkaline Phosphatase 100, T otal Protein 6.3 L, Albumin 3.4, Globulin 2.9, Albumin/Globulin Ratio 1.2, Triglycerides 107, Cholesterol 228 H, LDL Cholesterol 140 H, VLDL Cholesterol 21, HDL Cholesterol 67, Free T4 1.07, Free T3 pg/dL 1.4 L 6. OA; with chronic debility and generalized weakness with ambulatory dysfunction PT/OT and Case Management to consult. On Tylenol. 7. Essential hypertension - Resume home regimen plus give prn IV Hydralazine for systolic blood pressure > 160 mmHg. 8. Hyperlipidemia; on atorvastatin - Maintain statin and check Lipid Profile. 9. Overweight; with BMI of 28.6 this admission plus CATHERINE - Weight loss will be recommended. Continue nocturnal CPAP. Check TSH. This complicates her case and may hamper recovery. 10. History of breast cancer; s/p partial Right mastectomy - Noted. 11. NAFLD - Noted. 12. History of thoracic aortic aneurysm; without rupture - Noted. 13. Depression with anxiety; on citalopram - Citalopram to be maintained as before. GERD; on pantoprazole - Resume pantoprazole as previous. 23. DVT prophylaxis - Heparin 5,000 U sq. BID plus SCD's. Total time: Approximately (nut not less than) 75 minutes.
--- NOTE | 2024-08-28 09:45 | DCINST_ITS ---
Discharge Instructions Diet Discharge Diet: 2000 mg Sodium Diet DC O2, CPAP, BIPAP needs Additional Home O2 Discharge instructions: No Dressing / Incision Discharge Activity: Return to Normal Activity Weight Bearing Status: Weight bearing as tolerated Dressing / Incision Call your doctor if you observe: Fever of 101 or Higher, Coldness, Increased Pain, Numbness or Tingling, Change in Color, Inability to urinate, Inability to have a bowel movement, Shortness of breath, Dizziness, Fainting spells, Swelling in the ankles, Chest pain, Prolonged hiccupping, Increased palpitations (irregular heartbeat) and Calf discomfort Follow Up Care When: IN 2 WEEKS Test Results: Test results from this visit will be discussed in further detail at your follow- up appointment, if applicable. Discharge Plan Admission Admit Date/Time: 08/26/24 20:30 Attending Provider: Adis Walker Primary Care Provider: North Cuellar Chi Consulting Providers: Luis Horn Discharge Orders/Prescriptions Prescriptions: New acetaminophen 500 mg Tablet 1,000 mg PO Q8H PRN PRN (Reason: Headache/Fever (T>102.5)) Qty: 0 0RF Rx Instructions: [id number]. For 1 week for headache and back pain. Continued pantoprazole 40 mg tablet,delayed release (DR/EC) 40 mg PO DAILY aspirin [Adult Low Dose Aspirin] 81 mg tablet,delayed release (DR/EC) 81 mg PO DAILY clopidogrel 75 mg Tablet 75 mg PO DAILY Qty: 30 2RF citalopram 10 mg tablet 10 mg PO DAILY naproxen 250 mg tablet 250 mg PO BID gabapentin 100 mg capsule 100 mg PO DAILY prednisone 10 mg tablet See Taper PO BID 2 Days Qty: 0 0RF Taper: Prednisone Taper 30 mg WITH BREAKFAST for 2 Days 20 mg WITH BREAKFAST for 2 Days 10 mg WITH BREAKFAST for 2 Days Patient Comments: pt took 2 days of the taper prior to admission Rx Instructions: She is on 10 mg daily for today and tomorrow and then will complete Referrals / Follow Up: North Cuellar Chi, MD [Primary Care Provider] - Within 2 Weeks Disposition Disposition (needs filled in before D/C Order can be placed): Home Health Service
--- NOTE | 2024-08-28 10:36 | DS.PCM_ITS ---
Providers Date of Admission: 08/26/24 Date of Discharge: 08/28/24 Primary Care Physician: Dr. North Cuellar MD Reason For Visit: UTI HYPOKALEMIA HYPERGLYCEMIA & FREQUENT FALLS Diagnosis Discharge Diagnosis (1) Urinary tract infection: Status: Acute Code(s): N39.0 - Urinary tract infection, site not specified Qualifiers: Hematuria presence: without hematuria Urinary tract infection type: a cute cystitis Qualified Code(s): N30.00 - Acute cystitis without hematuria (2) Hypokalemia: Status: Acute Code(s): E87.6 - Hypokalemia (3) Hyperglycemia, drug-induced: Status: Acute Code(s): R73.9 - Hyperglycemia, unspecified; T50.905A - Adverse effect of unspecified drugs, medicaments and biological substances, initial encounter (4) Multiple falls: Status: Acute Code(s): R29.6 - Repeated falls (5) Near syncope: Status: Acute Code(s): R55 - Syncope and collapse (6) Respiratory insufficiency: Status: Acute Code(s): R06.89 - Other abnormalities of breathing (7) History of CVA (cerebrovascular accident): Status: Acute Code(s): Z86.73 - Personal history of transient ischemic attack (TIA), and cerebral infarction without residual deficits (8) Back pain: Status: Acute Code(s): M54.9 - Dorsalgia, unspecified Qualifiers: Back pain laterality: unspecified Back pain location: low back pain C hronicity: acute Sciatica presence: without sciatica Qualified Code(s): M54.50 - Low back pain, unspecified Plan 79-year-old female was admitted with chief complaint of fall while walking her dog outside with slip on the ice and hitting her back of the head. She is not able to recall whether she passed out. 1. Abnormal UA, UTI ruled out: Patient states she has burning micturition for 3 days. UA positive of WBC and LE. Preliminary started on IV ceftriaxone. Prelim urine culture shows no growth but will continue antibiotics because of positive patient's symptoms. 08/28: Urine culture shows mixed contaminants, mixed gram-positive organism 1000- 10,000 colonies. Antibiotic discontinued. 2. Hypokalemia of 3.1 mmol/L present on admission - Give supplemental KCl and then recheck level in the AM to ensure improvement. Hypokalemia resolved 3. DM-2; uncontrolled with Hyperglycemia of 250 mg/dL present on admission likely due to recent steroids - ADA diet. FSBS q. AC/HS plus SSI. Restart metformin as outpatient. 08/27: Glucose in BMP is 193. 08/28: Glucoses controlled 4. Fall most likely no syncope history of CVA; with residual Right-sided weakness on BASA and clopidogrel and history of subsequent fall; resulting in ICH with progressively worsening generalized weakness with ambulatory dysfunction and increasingly frequent falls with CT head, C-spine and CXR this admission negative for acute pathologic findings. 2D echo is ordered. Stress was negative for acute ischemia. 08/28: Patient advised to take Tylenol 1 g every 8 hourly [id number] for occipital headache and back pain after fall. 6. OA; with chronic debility and generalized weakness with ambulatory dysfunction PT/OT and Case Management to consult. On Tylenol. 7. Essential hypertension - Resume home regimen plus give prn IV Hydralazine for systolic blood pressure > 160 mmHg. 8. Hyperlipidemia: Patient advised to follow with PCP Dr. Cuellar to further evaluate for 10-year ASCVD risk in light of elevated cholesterol profile and and options of antihyperlipidemic treatment 08/28: Triglycerides 107, Cholesterol 228 H, LDL Cholesterol 140 H, VLDL Cholesterol 21, HDL Cholesterol 67 9. Overweight; with BMI of 28.6 this admission plus CATHERINE - Weight loss will be recommended. Continue nocturnal CPAP. Check TSH. This complicates her case and may hamper recovery. TSH low, free T4 normal free T31.4, possible subclinical hyperthyroidism or euthyroid sick syndrome. Repeat thyroid profile in about 6 months Depression with anxiety; on citalopram - Citalopram to be maintained as before. GERD; on pantoprazole - Resume pantoprazole as previous. DVT prophylaxis - Heparin 5,000 U sq. BID plus SCD's. Discharge medication reconciliation done. Discharge follow-up instructions completed. Discharge process discussed with the patient and all questions were answered to patient's satisfaction. Follow with PCP in 1 to 2 weeks Total time spent, exact 35 minutes on discharge meds reconciliation, examination, coordination of care with nurses and ancillary staff, review of imaging and blood test and discussion with the patient on follow-up instructions. Medications at Discharge Home Medications aspirin 81 mg tablet,delayed release (Adult Low Dose Aspirin) 81 mg PO DAILY heart health 01/30/22 pantoprazole 40 mg tablet,delayed release 40 mg PO DAILY relfux 01/30/22 clopidogrel 75 mg tablet 75 mg PO DAILY anti platelet #30 tabs 03/01/23 citalopram 10 mg tablet 10 mg PO DAILY mental health 08/26/24 gabapentin 100 mg capsule 100 mg PO DAILY nerve pain 08/26/24 naproxen 250 mg tablet 250 mg PO BID pain 08/26/24 acetaminophen 500 mg tablet 1,000 mg (2 x 500 mg) PO Q8H PRN PRN Headache/Fever (T>102.5) #0 tabs 08/28/24 prednisone 10 mg tablet See Taper PO BID inflammation 2 days #0 tabs 08/28/24 Physical Exam Narrative Seen and examined. Occipital headache is better but still hurts. Back pain is better. Stress test was negative. Physical exam General: Alert, Oriented x3, Cooperative HEENT: Atraumatic, PERRLA, EOMI, Normocephalic Oral: Oral mucosa dry. No Gingival or Mucosal Lesions/ Ulcerations Neck: Supple, No JVD, Negative Carotid Bruits Chest wall/Lungs: Air entry diminished in bilateral lung bases. No crepitation/rhonchi Cardiovascular: Regular rate, Regular Rhythm, Normal S1, Normal S2, No M/G/R Abdomen: Bowel Sounds Present, Soft, Non Tender, Non-Distended : Dysuria/burning micturition. Increased frequency. No renal angle tenderness. No suprapubic tenderness. Extremities: No edema, Capillary Refill Less than 3 Seconds Skin: No obvious hematoma or ulcer over the head. Musculoskeletal: Mild tenderness in occipital area of head and sacral area. No ulcer. Neurological: Cranial nerves II-XII grossly intact, DTR 2+/4. No acute focal neurological deficit. Psych/Mental Status: Flat affect Weight / BMI Weight Weight: 152 lb 12.485 oz Body Mass Index (BMI) 29.8 ABG / Lab / Microbiology Data 08/27/24 04:03 08/27/24 04:03 Laboratory: Laboratory Results - last 24 hr 08/27/24 16:37: POC Glucose 155 H 08/27/24 21:07: POC Glucose 168 H 08/28/24 05:45: Hemoglobin A1c 10.5 H, Phosphorus 4.4, Magnesium 2.7 H 08/28/24 06:39: POC Glucose 120 H Microbiology: Microbiology 08/26/24 16:58 Urine, Clean Catch Urine Culture - Final Mixed Gram Positive Organisms Radiography Diagnostic Testing: Radiology Impression Carotid Duplex 08/26/24 21:23 Interpretation Summary Mild (<50%) stenosis right extracranial internal carotid. Mild (<50%) stenosis left extracranial internal carotid. Flow within the vertebral arteries is antegrade bilaterally. Ordering Physician: Luis Horn Referring Physician: North Cuellar Chi Performed By: Pipe Michelle RVT Echocardiogram 08/26/24 21:23 Interpretation Summary Normal LV size. Left ventricular systolic function is normal. The left ventricular ejection fraction is 65 %. Focal calcification 1cm by 0.6 cm on left cusp aortic valve Stage 1 diastolic dysfunction. Mild (1+) aortic valve insufficiency. Ordering Physician: Luis Horn Referring Physician: oNrth Cuellar Chi Performed By: Helen Carbone RCS D/C Instructions Discharge Diet: 2000 mg Sodium Diet Weight Bearing Status: Weight bearing as tolerated Call your doctor if you observe: Fever of 101 or Higher, Coldness, Increased Pain, Numbness or Tingling, Change in Color, Inability to urinate, Inability to have a bowel movement, Shortness of breath, Dizziness, Fainting spells, Swelling in the ankles, Chest pain, Prolonged hiccupping, Increased palpitations (irregular heartbeat) and Calf discomfort DC O2, CPAP, BIPAP Needs Additional Home O2 Discharge instructions: No DC home with Oxygen: No When: IN 2 WEEKS Meaningful Use Info Meaningful Use Meaningful Use Diagnoses (Choose all that apply): None applicable Ischemic Stroke Statin Dosing Therapy Reference: STATIN DOSE THERAPY REFERENCE: * Patients > 75 years receive moderate or high dose statin therapy. * Patients 75 years or YOUNGER should receive HIGH intensity statin dose unless contraindicated. You will be required to document reason for non-treatment if statin daily dose does not meet guidelines. HIGH DOSE STATIN THERAPY DAILY Atorvastatin > than or = to 40 mg Rosuvastatin > than or = to 20 mg Amlodipine + Atorvastatin > than or = to 2.5/40 mg Ezetimibe + Simvastatin 10/80 mg Simvastatin 80mg Discharge Plan Admission Admit Date/Time: 08/26/24 20:30 Attending Provider: Adis Walker Primary Care Provider: North Cuellar Chi Consulting Providers: Luis Horn Discharge Orders/Prescriptions Prescriptions: New acetaminophen 500 mg Tablet 1,000 mg PO Q8H PRN PRN (Reason: Headache/Fever (T>102.5)) Qty: 0 0RF Rx Instructions: [id number]. For 1 week for headache and back pain. Continued pantoprazole 40 mg tablet,delayed release (DR/EC) 40 mg PO DAILY aspirin [Adult Low Dose Aspirin] 81 mg tablet,delayed release (DR/EC) 81 mg PO DAILY clopidogrel 75 mg Tablet 75 mg PO DAILY Qty: 30 2RF citalopram 10 mg tablet 10 mg PO DAILY naproxen 250 mg tablet 250 mg PO BID gabapentin 100 mg capsule 100 mg PO DAILY prednisone 10 mg tablet See Taper PO BID 2 Days Qty: 0 0RF Taper: Prednisone Taper 30 mg WITH BREAKFAST for 2 Days 20 mg WITH BREAKFAST for 2 Days 10 mg WITH BREAKFAST for 2 Days Patient Comments: pt took 2 days of the taper prior to admission Rx Instructions: She is on 10 mg daily for today and tomorrow and then will complete Referrals / Follow Up: North Cuellar Chi, MD [Primary Care Provider] - Within 2 Weeks Disposition Disposition (needs filled in before D/C Order can be placed): Home Health Service Charges/Coding Visit Charges Inpatient E&M: 13747 Disch Hosp >30min
--- NOTE | 2024-09-20 12:39 | CCN.REFER ---
PATIENT HAS BEEN ACTIVE W/ HH SN AND BEING DISCHARGED 1/2 PER [place]. T/C TO PATIENT TO ARRANGE [facility] HOME VISIT FOR HER AND HER PER CM NOTES ON 08/27. PATIENT IS DECLINING CCN STATING THAT THEY ARE DOING MUCH BETTER AND DTR IS HELPING AT HOME WELL. EDUCATION PROVIDED AND PHONE NUMBER LEFT IF PATIENT CHANGES HER MIND.
== END 2024-08-28 13:15 | disposition home or self-care (01) | DRG 696 ==
LOC: ED 19:52 → PCU 20:12
PROVIDERS: Admitting Provider Internal Medicine; Emergency Provider Emergency Medicine; PCP Family Medicine Geriatric Medicine; Visit Provider Internal Medicine
DX: R82.79 Other abnormal findings on microbiological examination of urine (principal); I69.351 Hemiplegia and hemiparesis following cerebral infarction affecting right dominant side; S09.90XA Unspecified injury of head, initial encounter; E11.65 Type 2 diabetes mellitus with hyperglycemia; E05.90 Thyrotoxicosis, unspecified without thyrotoxic crisis or storm; I10 Essential (primary) hypertension; F32.A Depression, unspecified; G47.33 Obstructive sleep apnea (adult) (pediatric); E87.6 Hypokalemia; K21.9 Gastro-esophageal reflux disease without esophagitis; F41.9 Anxiety disorder, unspecified; M54.50 Low back pain, unspecified; M19.90 Unspecified osteoarthritis, unspecified site; E78.00 Pure hypercholesterolemia, unspecified; W00.0XXA Fall on same level due to ice and snow, initial encounter; M25.552 Pain in left hip; E07.81 Sick-euthyroid syndrome; R30.9 Painful micturition, unspecified; T38.0X5A Adverse effect of glucocorticoids and synthetic analogues, initial encounter; Y93.K1 Activity, walking an animal; Z68.28 Body mass index [BMI] 28.0-28.9, adult; E66.3 Overweight; R09.02 Hypoxemia; R53.81 Other malaise; R29.6 Repeated falls; Z79.02 Long term (current) use of 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/antiplatelets; Z79.82 Long term (current) use of aspirin; Z79.84 Long term (current) use of oral hypoglycemic drugs; Z79.899 Other long term (current) drug therapy
CPT/HCPCS: 36415; 70450; 71260; 72110; 72125; 73502; 74177; 78452; 80048; 80053; 80061; 80076; 80307; 81001; 82077; 82607; 82746; 82962; 83036; 83735; 83880; 84100; 84439; 84443; 84481; 84484; 85025; 85610; 85730; 87086; 87088; 93005; 93017; 93306; 93880; 97161; 97166; 97802; 99285; A9500; Q9967; A4216; J2785

== ENCOUNTER → 2024-09-06 | Outpatient (CLI) | payer MEDICARE, SELFPAY ==
--- NOTE | 2024-09-06 16:30 | CT_ITS ---
STUDY: CT BRAIN WITHOUT CONTRAST REASON FOR EXAM: Female, 79 years old. HEADACHES FOLLOWING A FALL LAST FRIDAY NIGHT, DIZZINESS RADIATION DOSAGE (If Supplied By Facility): CTDIvol = ( 44.99 ) mGy, DLP = ( 762.36 ) mGycm TECHNIQUE: Transaxial CT imaging of the brain was performed without administration of intravenous contrast material. Individualized dose optimization techniques were used for this CT. COMPARISON: August 25, 2024 FINDINGS: Normal soft tissue structures. Normal calvarium. Normal size ventricles and extra-axial spaces for the patient''s age. Bilateral white matter microangiopathic ischemic changes of the cerebral hemispheres. 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 Normal thalami. Normal brainstem. Normal cerebellum. There is no intracranial hemorrhage. There are no findings of an acute ischemic infarction. Normal visualized paranasal sinuses. CT/Brain/Head without Contrast IMPRESSION: Age-related and chronic changes of the brain similar to previous study. Electronically Signed: Jose Ervin DO at 17:19 EST Reading Location ID and State: [facility] / [place] Tel [phone], Service support ,
== END | disposition home or self-care (01) ==
LOC: CT 16:28
PROVIDERS: PCP Family Medicine Geriatric Medicine; Referring Provider Family Medicine Geriatric Medicine; Visit Provider Family Medicine Geriatric Medicine
DX: R51.9 Headache, unspecified (principal)
CPT/HCPCS: 70450

== ENCOUNTER → 2024-10-13 | Outpatient (CLI) | payer MEDICARE, SELFPAY ==
--- NOTE | 2024-10-13 12:42 | CT_ITS ---
STUDY: CT ABDOMEN AND PELVIS WITH CONTRAST REASON FOR EXAM: Female, 79 years old. ABD PAIN RADIATION DOSAGE (If Supplied By Facility): CTDIvol = ( 19.26 ) mGy, DLP = ( 954.84 ) mGycm TECHNIQUE: Oral and amp;amp; IV Readi-CAT and amp;amp; 100mL Isovue-300 was administered. Transaxial images were obtained from the dome of the diaphragm to the symphysis pubis in the portal venous phase. Multiplanar coronal and sagittal images were reformatted. Individualized Dose Optimization Techniques Were Used For This CT. COMPARISON: Prior study dated: 08/26/2024 FINDINGS: LOWER CHEST: Lung bases are clear. No cardiomegaly or pericardial effusion. LIVER: The liver is normal in size, shape, and attenuation. No focal mass. GALLBLADDER AND BILIARY TREE: Cholecystectomy. No intra- or extrahepatic biliary ductal dilation. PANCREAS: No focal cystic or solid mass. SPLEEN: Normal size without focal cystic or solid mass. ADRENAL GLANDS: No nodules. KIDNEYS AND URETERS: Normal renal size and position. No hydronephrosis or nephrolithiasis. PERITONEUM: No ascites or free air. No other fluid collection. BOWEL: The stomach is unremarkable. Normal caliber small bowel. There is no obstruction. Enteric contrast in the small bowel extends into the pelvis. There is some small bowel fecalization, suggesting slow transit. No colonic wall thickening or inflammation. Prominent colonic diverticulosis without diverticulitis. Appendix not seen. LYMPH NODES: No enlarged mesenteric or retroperitoneal lymph nodes. VESSELS: The aorta is normal in caliber with moderate atherosclerotic calcification. URINARY BLADDER: Unremarkable. REPRODUCTIVE ORGANS: No pelvic masses. ABDOMINAL WALL: No discrete abdominal or pelvic wall hernia. BONES: No lytic or blastic abnormality. Moderate degenerative change of the lumbar spine. Chronic height loss at the L4 vertebral body, though this has mildly progressed from prior. There is up to 40% loss of height. CT/Abdomen/Pelvis WITH Contrast IMPRESSION: Progressive height loss of the L4 vertebral body, now with 40% loss of height. No acute inflammatory changes in the abdomen or pelvis. No bowel obstruction. Colonic diverticulosis without diverticulitis. Electronically Signed: Bryan Sanders MD at 13:22 EST ,
== END | disposition home or self-care (01) ==
LOC: CT 12:41
PROVIDERS: PCP Family Medicine Geriatric Medicine; Referring Provider Family Medicine Geriatric Medicine; Visit Provider Family Medicine Geriatric Medicine
DX: R10.9 Unspecified abdominal pain (principal)
CPT/HCPCS: 74177; Q9967

== ENCOUNTER → 2024-11-09 | Outpatient (CLI) | payer MEDICARE, SELFPAY ==
[2024-11-09 16:34] LABS: Absolute Lymphocyte Count 1.67 X10^3/uL (0.83-4.51); Absolute Neutrophil Count 3.3 X10^3/uL (2.0-7.7); Basophil# 0.05 X10^3/uL; Basophil% 0.9 % (0-1); Eosinophil# 0.06 X10^3/uL; Hematocrit 39.8 % (37-47); Hemoglobin 13.3 g/dL (12.0-15.0); Lymphocyte # 1.67 X10^3/ul (0.83-4.51); Lymphocyte % 29.1 % (19-41); Mean Corp Hgb Conc 33.4 g/dL (32-36); Mean Corpuscular Hgb 32.9 pg (27.0-32.0); Mean Corpuscular Volume 98.5 fL (81-99); Mean Platelet Vol. 9.9 fl (6.2-12.0); Monocyte# 0.62 X10^3/uL; Monocyte% 10.8 % (0-10); NRBC Flagged by Analyzer 0 % (0-5); Neutrophil % 57.5 % (47-70); Platelet Count 215 K/mm3 (150-450); RBC Distribution Width CV 14.4 % (11.6-14.6); RBC Distribution Width SD 52.2 fl (35.1-43.9); Red Blood Count 4.04 M/mm3 (4.2-5.4); White Blood Count 5.7 K/mm3 (4.4-11.0)
[2024-11-09 17:01] LABS: Microalbumin,Random Urine 19.8 mg/L (NO RANGE EST.); Microalbumin:Creatinine Ratio 11.6 mg/g CRE (<30 mg/g CRE)
[2024-11-09 17:05] LABS: Hemoglobin A1c 6.4 % (3.8-5.6)
[2024-11-09 17:11] LABS: ALB/GLOB Ratio 1.1 RATIO (0.9-2.4); AST(SGOT) 23 U/L (15-37); Alanine Aminotransfer ALT/SGPT 25 U/L (13-56); Albumin, Serum 3.9 g/dL (3.2-5.0); Alkaline Phosphatase 118 U/L (45-117); Anion Gap 10 (5-15); BUN 14 mg/dL (7-18); BUN/Creat Ratio 15.7 RATIO (10-20); Calcium,Total 9.3 mg/dL (8.5-10.1); Chloride 100 mmol/L (98-107); Cholesterol 226 mg/dL (200); Creatinine, Serum 0.89 mg/dL (0.55-1.02); EST Glomerular Filtration Rate 65 mL/min (>60); Est Glom Filt Rate - Afr Amer 78 mL/min (>60); Globulin 3.4 g/dL (2.2-4.2); Glucose 94 mg/dL (74-106); High Density Lipoprotein 52 mg/dL; Potassium 3.4 mmol/L (3.5-5.1); Protein, Total 7.3 g/dL (6.4-8.2); Sodium Level 136 mmol/L (136-145); Thyroid Stim Hormone (TSH) 0.759 uIU/mL (0.358-3.740); Triglycerides 199 mg/dL; Very Low Density Lipoprotein 40 mg/dL (5-40)
[2024-11-11 14:53] LABS: Vitamin D,25 Hydroxy 37.5 ng/mL
== END | disposition home or self-care (01) ==
LOC: LAB 15:58
PROVIDERS: PCP Family Medicine Geriatric Medicine; Referring Provider Family Medicine Geriatric Medicine; Visit Provider Family Medicine Geriatric Medicine
DX: E11.65 Type 2 diabetes mellitus with hyperglycemia (principal); I10 Essential (primary) hypertension; E78.5 Hyperlipidemia, unspecified; E55.9 Vitamin D deficiency, unspecified
CPT/HCPCS: 36415; 80053; 80061; 82043; 82306; 82570; 83036; 84443; 85025

== ENCOUNTER → 2024-11-25 | Outpatient (CLI) | payer MEDICARE, SELFPAY ==
--- NOTE | 2024-11-25 16:07 | CT_ITS ---
PROCEDURE: CTA CHEST WITH CONTRAST REASON FOR EXAM: FOLLOW-UP THORACIC AORTIC ANEURYSM. TECHNIQUE: Contiguous axial scans of 1.25 mm slice thicknesses. Sagittal and coronal reconstruction images were obtained. One or more dose reduction techniques were used (e.g., automated exposure control, adjustment of mA and/or kv according to patient size, use of iterative reconstruction technique). IV CONTRAST: Isovue 370, 76 mL. COMPARISON: CT chest dated 08/26/2024. FINDINGS: Lungs and Airways: The lungs are normally expanded and clear. Mild chronic interstitial fibrotic changes are again noted throughout both lungs. A few scattered areas of ground-glass opacification are noted in the bilateral lungs. Pleura: No pleural effusion. No pneumothorax. Heart: Normal heart size. No pericardial effusion. Pericardium: No thickening. Coronary arteries: Atherosclerotic calcific disease. Thoracic Aorta: Fusiform aneurysmal dilatation of the ascending aorta at 4.1 cm. Pulmonary Vessels: No large central filling defects. Contrast timing was optimized for evaluation of the aorta. Mediastinum: No mediastinal hilar or axillary lymphadenopathy. Thyroid:No nodules.. Upper Abdomen: Visualized portions of the upper abdominal viscera are unremarkable. Bones: Multilevel spondylosis CT/CTA Chest W/WO Contrast IMPRESSION: Stable fusiform aneurysmal dilatation of the ascending aorta. Chronic interstitial changes throughout both lungs. Scattered areas of ground-glass opacification are of undetermined significance but can indicate mild inflammation. Other nonacute findings detailed above. Reading Location: [place] [id number]
== END | disposition home or self-care (01) ==
LOC: CT 15:55
PROVIDERS: PCP Family Medicine Geriatric Medicine; Referring Provider Family Medicine Geriatric Medicine; Visit Provider Family Medicine Geriatric Medicine
DX: I71.20 Thoracic aortic aneurysm, without rupture, unspecified (principal)
CPT/HCPCS: 71275; Q9967; A4216

== ENCOUNTER 2025-02-23 13:02 | Outpatient (RCR) | payer MEDICARE, SELFPAY ==
--- NOTE | 2025-02-23 14:07 | HP.PTEVAL ---
Patient's Visit Information Visit Information Visit Information: REYES DUONG is a 79 year old F referred to Physical Therapy by Dr. Kike Ralph MD with a diagnosis of BACK PAIN. Date of Evaluation: 02/23/25 Physical Therapist: Williams Laughlin, PT, Cert MDT, OCS Visit Plan Frequency: 2x /Week Duration: 4 Weeks Plan: PT INTERVENTIONS DLS ,POSTURAL EX' ,BLE STRENGTHENING AND FUNCTIONAL STRENGTHENING AND MODALTIES Subjective Subjective: This 79 y/o female presents to physical therapy with back pain. Patient has had back pain since falling in November 2014 caused compression fx had kyphoplasty lumbar L3 in last month then plan L4 . Thus recommended PT and ahd epidural injection x2. Patient pain located left lumbar right . No medication. Patient aggravating factors sitting ,walking ,standing is improving. Alleviating factors injection rest. Patient pain is improved since injections. Coughing/sneezing but prior to injection was +. Bowel/bladder-. Denies paresthesia/tingling. Difficulty sleeping. Patient uses cane for walking for balance. Patient is able to dress self and cooking. Patient spouse does cooking cleaning. Patient has had no prior tx. Patient has some dizziness ,denies nausea /tinnitus. Patient condition affects QOL and function . Patient goals to decrease pain. SOCIAL: VOCATION: retired Pain Left Back: Pain Intensity (Out of 10): 5 Pain Intensity Range: 9 Objective Objective: POSTURE: mild forward posture ,mild /mod thoracic kyphosis GAIT : ambulates with cane 2 point antalgic gait mild forward posture NEURO: denies paresthesia/tingling reflexes ,L3-4 ,L4-5,L5-S1 1/3 PALAPTION: unremarkable SYMMETRIES: align MMT: quads/hams 4/5 ,hip flexion 4-/5 ,ankle 4/5 FLEXABILITY: hamstrings min tight LUMBAR ROM: flexion mod loss pain ,extension mod loss ,side glides mod loss Special Tests L/S Slump test left side: Negative L/S Slump test right side: Negative L/S Left Straight Leg Raise: Negative L/S Right Straight Leg Raise: Negative Balance/Special Test Scores CATSIB Score (Max score 120 seconds): 41 Oswestry Low Back Score: 30 Goals Goal 1:: Patient to be I with HEP for strengthening Goal Time Frame: 4-6 Weeks Goal 2:: Patient to improve lumbar ROM for function of recovery for ADL's Goal Time Frame: 4-6 Weeks Goal 3:: Patient to improve back oswestry score by 5 points to improve QOL Goal Time Frame: 4-6 Weeks Goal 4:: Patient to improve CATSIB by 5 -10 points to improve balance to decrease risk of falls Goal Time Frame: 4-6 Weeks Goal 5:: Patient to demonstrate 50% improvement with increase function and less pain Goal Time Frame: 4-6 Weeks Rehabilitation Potential Physical Therapy Diagnosis: Patient has back pain with compression fx L3-4 thus has kyphoplasty L3 with pain ,weakness in legs , decrease balance impairs gait and ADL thus benefit from skilled PT Rehabilitation Potential: Fair Anticipated Interventions Patient/Client Instruction: Educate patient on: Condition and Plan of Care For the Purpose of:: To decrease pain, To increase ROM, To improve muscle performance and motor function, To improve ability to perform ADL's, To increase tolerance to activity/condition/position, To improve ability of physical actions for home/community/work/leisure, To improve gait and locomotor functions, To increase flexibility/ROM and To improve tolerance to ADL's Therapeutic Exercise to Include: Strength training, Endurance training, Balance training, Postural training and Dynamic Lumbar Stabilization Comment: BLE -QUADS/HAMS/HIP For the Purpose of:: To decrease pain, To improve muscle performance and motor function, To improve ability to perform ADL's, To increase tolerance to activity/condition/position, To improve ability of physical actions for home/community/work/leisure, To improve gait and locomotor functions, To increase flexibility/ROM, To improve endurance, To improve balance and To improve tolerance to ADL's TENS: Yes IF ES: Yes Cryotherapy (ice pack, ice massage): Yes Thermo therapy (hot pack): Yes Ultrasound (thermal/non thermal): Yes For the Purpose of:: To decrease pain, To increase ROM, To improve muscle performance and motor function, To improve ability to perform ADL's, To increase tolerance to activity/condition/position, To improve ability of physical actions for home/community/work/leisure, To improve gait and locomotor functions, To improve endurance, To improve balance and To improve tolerance to ADL's Text: Thank you for the opportunity to evaluate your patient. For Medicare and Medicare HMO plans, please review the plan of care and approve it. It will need to be FAXED BACK to us at [phone] for Medicare purposes. For Medicare only, by signing this I certify the plan of care. Please let me know if there are questions or concerns regarding this plan of care. Physician Signature: Date:
--- NOTE | 2025-05-30 18:06 | HP.PT.NRP ---
Patient Information Patient Information: REYES DUONG was seen in my office for initial evaluation on 02/23/25. The following Plan of Care was established for this patient: POC Established Initial Frequency: 2x /Week Initial Duration: 4 Weeks Anticipated Interventions Patient/Client Instruction: Educate patient on: Condition and Plan of Care For the Purpose of:: To decrease pain, To increase ROM, To improve muscle performance and motor function, To improve ability to perform ADL's, To increase tolerance to activity/condition/position, To improve ability of physical actions for home/community/work/leisure, To improve gait and locomotor functions, To increase flexibility/ROM and To improve tolerance to ADL's Therapeutic Exercise to Include: Strength training, Endurance training, Balance training, Postural training and Dynamic Lumbar Stabilization For the Purpose of:: To decrease pain, To improve muscle performance and motor function, To improve ability to perform ADL's, To increase tolerance to activity/condition/position, To improve ability of physical actions for home/community/work/leisure, To improve gait and locomotor functions, To increase flexibility/ROM, To improve endurance, To improve balance and To improve tolerance to ADL's TENS: Yes IF ES: Yes Cryotherapy (ice pack, ice massage): Yes Thermo therapy (hot pack): Yes Ultrasound (thermal/non thermal): Yes For the Purpose of:: To decrease pain, To increase ROM, To improve muscle performance and motor function, To improve ability to perform ADL's, To increase tolerance to activity/condition/position, To improve ability of physical actions for home/community/work/leisure, To improve gait and locomotor functions, To improve endurance, To improve balance and To improve tolerance to ADL's Last Seen Last Seen: This patient was last seen in our office . Pertinent comments regarding their Physical therapy will appear below: Patient was seen for BACK pain and HEP THUS D/C TO HEP At this point I will be discontinuing this patient from physical therapy. I would be happy to see this patient again in the future if found appropriate by the physician. Thank you! Williams Laughlin, PT, Cert MDT, OCS Balance/Gait/Functional tests Balance/Special Test Scores CATSIB Score (Max score 120 seconds): 41 Oswestry Low Back Score: 30
== END 2025-02-23 19:00 | disposition home or self-care (01) ==
LOC: PT 13:02
PROVIDERS: PCP Family Medicine Geriatric Medicine; Referring Provider Anesthesiology Pain Medicine; Visit Provider Anesthesiology Pain Medicine
DX: M54.9 Dorsalgia, unspecified (principal)
CPT/HCPCS: 97110; 97162

== ENCOUNTER 2025-04-14 15:57 | Emergency (ER) | payer MEDICARE, SELFPAY ==
[2025-04-14 15:57] VITALS: BP 122/90; PULSE 95; RESP 18; TEMP 36.4; O2SAT 99; BMI 30.8
--- NOTE | 2025-04-14 16:19 | EDS_ITS ---
HPI <TRAVIS eHard - Last Filed: 04/14/25 16:37> History of Present Illness Chief Complaint: Laceration Narrative Narrative: 80-year-old female was looking over the back of her couch at the window when her dog jumped up to look out next to her and his nails cut her right forearm causing a skin tear. Bleeding is controlled with a bandage. She is on Plavix. Tetanus is up-to-date. PFSH <TRAVIS Heard - Last Filed: 04/14/25 16:37> [facility] Medical History Thoracic aortic aneurysm without rupture Breast cancer CATHERINE (obstructive sleep apnea) Essential hypertension GERD (gastroesophageal reflux disease) Anxiety Fatty liver Home Medications Medication Instructions Recorded Last Taken Type aspirin 81 mg tablet,delayed 81 mg PO DAILY heart heal th 01/30/22 02/27/23 History release (Adult Low Dose Aspirin) pantoprazole 40 mg tablet,delayed 40 mg PO DAILY relfu x 01/30/22 02/26/23 History release clopidogrel 75 mg tablet 75 mg PO DAILY anti platelet #30 03/01/23 Unknown Rx tabs citalopram 10 mg tablet 10 mg PO DAILY mental health 08/26/24 Unknown History gabapentin 100 mg capsule 100 mg PO DAILY nerve pain 1 10/27/23 Unknown History naproxen 250 mg tablet 250 mg PO BID pain 08/26/24 Unknown History acetaminophen 500 mg tablet 1,000 mg (2 x 500 mg) PO Q 8H PRN 08/28/24 Unknown Rx PRN Headache/Fever (T>102.5) #0 tabs prednisone 10 mg tablet See Taper PO BID inflammatio n 2 08/28/24 08/26/24 Rx days #0 tabs Allergy/AdvReac Type Severity Reaction Status Date / Time terazosin (From Hytrin) Allergy Severe Face Verified 04/14/25 15:58 swelling acetaminophen (From AdvReac Severe Nightmares Verified 04/14/25 15:58 Darvocet-N 100) propoxyphene (From AdvReac Severe Nightmares Verified 04/14/25 15:58 Darvocet-N 100) codeine AdvReac Unknown "tight Verified 04/14/25 15:58 band around head and SOB gabapentin (From Neurontin) AdvReac Unknown Mental Verified 04/14/25 15:58 status change hydrocodone (From Vicodin) AdvReac Unknown Nightmares Verified 04/14/25 15:58 zolpidem (From Ambien) AdvReac Unknown Hallucinati Verified 04/14/25 15:58 ons Family History Father Myocardial infarction CVA (cerebral vascular accident) Surgical History History of abdominal hysterectomy History of laparoscopic cholecystectomy History of appendectomy History of partial mastectomy of right breast Social History Smoking Status: Never smoker alcohol intake: never substance use type: does not use ROS <TRAVIS Heard - Last Filed: 04/14/25 16:37> ROS ED ROS Narrative Neuro: Negative for motor/sensory dysfunction. Skin: Positive for skin tear. Musc: Negative for joint pain. EXAM <TRAVIS Heard - Last Filed: 04/14/25 16:37> Physical Exam Narrative Exam Narrative: CONST: Patient sitting in no acute distress. EYES: Normal inspection. SKIN: 3 cm triangular-shaped skin tear right dorsal forearm with 1 very thin flap of skin overlying it. EXTREMITIES: Normal appearance, no pedal edema. NEURO: Alert and answering questions appropriately. PSYCH: Normal affect. Const Vital Signs: 04/14/25 15:57 04/14/25 16:45 Temperature 97.6 F L 98.6 F Temperature Source Temporal Pulse Rate 95 84 Respiratory Rate 18 14 Blood Pressure 122/90 H 141/55 H Blood Pressure Mean 100 83 Pulse Ox 99 100 Oxygen Delivery Method Room Air <Vinh Nazario MD - Last Filed: 04/14/25 17:40> Physical Exam Const Vital Signs: 04/14/25 15:57 04/14/25 16:45 Temperature 97.6 F L 98.6 F Temperature Source Temporal Pulse Rate 95 84 Respiratory Rate 18 14 Blood Pressure 122/90 H 141/55 H Blood Pressure Mean 100 83 Pulse Ox 99 100 Oxygen Delivery Method Room Air MDM <TRAVIS Heard - Last Filed: 04/14/25 16:37> MDM MDM Narrative Medical decision making narrative: History gathered from: Patient 80-year-old female has a skin tear on her right forearm from her dog jumping on her and cutting the skin with it nails. There is no active bleeding. It is not amenable to suturing. She has full range of motion and is neurovascular intact and there is no indication for an x-ray. She states her tetanus is already up-to-date. Wound was cleansed and dressed with bacitracin and a bandage and she was given wound care instructions for home. She was discharged in stable condition. <Vinh Nazario MD - Last Filed: 04/14/25 17:40> [facility] Treatment and Re-Evaluation Narrative: Dr. Nazario: I have personally performed a face to face assessment of the patient and have reviewed the DIEGO Note. I performed a substantive portion of the visit including all aspects of the following. My aguilar findings include: History is skin tear to right forearm from toenails from dog. Exam is afebrile. Vital signs noted. Positive large skin tear, skin avulsion on right forearm. Neurovascularly intact distally with palpable radial pulse. No bony tenderness. Medical Decision Making: Patient and report tetanus immunization current, within the last 10 years. Wound cleansed and dressed. Follow-up primary care. Discharge. Other additions or changes: [None] Discharge Plan Triage Chief Complaint: Laceration ED Midlevel Provider: Kareen Quinn ED Provider: Vinh Nazario Dx/Rx/DC Orders Clinical Impression: Skin tear of right forearm without complication Instructions: ED Skin Tear (Skin Avulsion) Prescriptions: No Action pantoprazole 40 mg tablet,delayed release (DR/EC) 40 mg PO DAILY aspirin [Adult Low Dose Aspirin] 81 mg tablet,delayed release (DR/EC) 81 mg PO DAILY clopidogrel 75 mg Tablet 75 mg PO DAILY Qty: 30 2RF citalopram 10 mg tablet 10 mg PO DAILY naproxen 250 mg tablet 250 mg PO BID gabapentin 100 mg capsule 100 mg PO DAILY acetaminophen 500 mg Tablet 1,000 mg PO Q8H PRN PRN (Reason: Headache/Fever (T>102.5)) Qty: 0 0RF Rx Instructions: [id number]. For 1 week for headache and back pain. prednisone 10 mg tablet See Taper PO BID 2 Days Qty: 0 0RF Taper: Prednisone Taper 30 mg WITH BREAKFAST for 2 Days 20 mg WITH BREAKFAST for 2 Days 10 mg WITH BREAKFAST for 2 Days Patient Comments: pt took 2 days of the taper prior to admission Rx Instructions: She is on 10 mg daily for today and tomorrow and then will complete Primary Care Provider: [place] Referrals: [place] Chi, MD [Primary Care Provider] - Activity Restrictions/Additional Instructions: Change the bandage once daily with bacitracin, a nonstick bandage, and gauze. This may take several weeks to heal. Please be seen by your primary care doctor if you develop signs of infection like redness, swelling or, pus or fever. Print Language: [place] Disposition Disposition: Home, Self Care Discharge Date/Time: 04/14/25 16:56
[2025-04-14 16:45] VITALS: BP 141/55; PULSE 84; RESP 14; TEMP 37; O2SAT 100
--- OUTSIDE RECORDS SUMMARY | 2025-04-14 23:09 | XMS RPT_ITS | CCD ---
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 tract infection, site not specified] Onset: 08-28-2024 11-28-2019 Episodic Past or Other Problems Problem Classification Problem Date Documented Date Episodic/Chronic Abdominal pain (1 source) Unspecified abdominal pain; Translations: [Unspecified abdominal pain] Onset: 11-03-2024 Episodic 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) Vascular disorder; Translations: [Embolism and thrombosis of unspecified artery] Onset: 11-04-2008 Resolved: 01-25-2014 01-25-2014 Chronic E Codes: Adverse effects of medical drugs (1 source) Adverse effect of unspecified drugs, medicaments and biological substances, initial encounter; Translations: [Adverse effect of unspecified drugs, medicaments and biological substances, initial encounter] Onset: 08-28-2024 Episodic Other aftercare (3 sources) Acquired platelet function disorder; Translations: [group home (current) use of 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/anti platelets] Onset: 03-20-2023 03-20-2023 Episodic Other and unspecified benign neoplasm (1 source) Benign neoplasm of pituitary gland; Translations: [Benign neoplasm of pituitary gland] Onset: 06-01-2024 Episodic Other circulatory disease (1 source) Personal history of transient ischemic attack (TIA), and cerebral infarction without residual deficits; Translations: [Personal history of transient ischemic attack (TIA), and cerebral infarction without residual deficits] Onset: 08-28-2024 Episodic Other connective tissue disease (1 source) Repeated falls; Translations: [Repeated falls] Onset: 08-28-2024 Episodic Other injuries and conditions due to external causes (1 source) Unspecified injury of head, initial encounter; Translations: [Unspecified injury of head, initial encounter] Onset: 09-23-2024 Episodic Other lower respiratory disease (1 source) Other abnormalities of breathing; Translations: [Other abnormalities of breathing] Onset: 08-28-2024 Episodic Other screening for suspected conditions (not mental disorders or infectious disease) (3 sources) Mammography abnormal; Translations: [Other abnormal and inconclusive findings on diagnostic imaging of breast] Onset: 01-26-2010 Resolved: 09-04-2017 09-04-2017 Episodic Other skin disorders (3 sources) Keloid scar; Translations: [Hypertrophic scar] Onset: 02-16-2009 Resolved: 09-04-2017 09-04-2017 Episodic Residual codes; unclassified (1 source) Chills (without fever); Translations: [Chills (without fever)] Onset: 05-23-2024 Episodic Results Test Name Value Interpretation Reference Range Facility Inital Evaluation (1) - PTon 02-23-2025 Inital Evaluation (1) - PT [facility] [address] [place] [address] / REHABILITATION SERVICES INITIAL EVALUATION MR#: [id number] Acct: [id number] Name: REYES PONCE Rep #: [id number] : 1945 79 From: Miguel Ortiz PT. T, OCS Referring Dr.: Dr. Kike Ralph MD Status: REG RCR Insurance: O MEDICARE SELF PAY INSURANCE Patient's Visit Information Visit Information Visit Information: REYES PONCE is a 79 year old F referred to Physical Therapy by Dr. Kike Ralph MD with a diagnosis of BACK PAIN. Date of Evaluation: 02/23/25 Physical Therapist: Williams Laughlin PT, Cert T, OCS Visit Plan Frequency: 2x /Week Duration: 4 Weeks Plan: PT INTERVENTIONS DLS ,POSTURAL EX' ,BLE STRENGTHENING AND FUNCTIONAL STRENGTHENING AND MODALTIES Subjective Subjective: This 79 y/o female presents to physical therapy with back pain. Patient has had back pain since falling in November 2014 caused compression fx had kyphoplasty lumbar L3 in last month then plan L4 . Thus recommended PT and ahd epidural injection x2. Patient pain located left lumbar right . No medication. Patient aggravating factors sitting ,walking ,standing is improving. Alleviating factors injection rest. Patient pain is improved since injections. Coughing/sneezing but prior to injection was +. Bowel/bladder-. Denies paresthesia/tingling. Difficulty sleeping. Patient uses cane for walking for balance. Patient is able to dress self and cooking. Patient spouse does cooking cleaning. Patient has had no prior tx. Patient has some dizziness ,denies nausea /tinnitus. Patient condition affects QOL and function . Patient goals to decrease pain. SOCIAL: VOCATION: retired Pain Left Back: Pain Intensity (Out of 10): 5 Pain Intensity Range: 9 Objective Objective: POSTURE: mild forward posture ,mild /mod thoracic kyphosis GAIT : ambulates with cane 2 point antalgic gait mild forward posture NEURO: denies paresthesia/tingling reflexes ,L3-4 ,L4-5,L5-S1 1/3 PALAPTION: unremarkable SYMMETRIES: align MMT: quads/hams 4/5 ,hip flexion 4-/5 ,ankle 4/5 FLEXABILITY: hamstrings min tight LUMBAR ROM: flexion mod loss pain ,extension mod loss ,side glides mod loss Special Tests L/S Slump test left side: Negative L/S Slump test right side: Negative L/S Left Straight Leg Raise: Negative L/S Right Straight Leg Raise: Negative Balance/Special Test Scores CATSIB Score (Max score 120 seconds): 41 Oswestry Low Back Score: 30 Goals Goal 1:: Patient to be I with HEP for strengthening Goal Time Frame: 4-6 Weeks Goal 2:: Patient to improve lumbar ROM for function of recovery for ADL's Goal Time Frame: 4-6 Weeks Goal 3:: Patient to improve back oswestry score by 5 points to improve QOL Goal Time Frame: 4-6 Weeks Goal 4:: Patient to improve CATSIB by 5 -10 points to improve balance to decrease risk of falls Goal Time Frame: 4-6 Weeks Goal 5:: Patient to demonstrate 50% improvement with increase function and less pain Goal Time Frame: 4-6 Weeks Rehabilitation Potential Physical Therapy Diagnosis: Patient has back pain with compression fx L3-4 thus has kyphoplasty L3 with pain ,weakness in legs , decrease balance impairs gait and ADL thus benefit from skilled PT Rehabilitation Potential: Fair Anticipated Interventions Patient/Client Instruction: Educate patient on: Condition and Plan of Care For the Purpose of:: To decrease pain, To increase ROM, To improve muscle performance and motor function, To improve ability to perform ADL's, To increase tolerance to activity/condition/pos ition, To improve ability of physical actions for home/community/work/le isure, To improve gait and locomotor functions, To increase flexibility/ROM and To improve tolerance to ADL's Therapeutic Exercise to Include: Strength training, Endurance training, Balance training, Postural training and Dynamic Lumbar Stabilization Comment: BLE -QUADS/HAMS/HIP For the Purpose of:: To decrease pain, To improve muscle performance and motor function, To improve ability to perform ADL's, To increase tolerance to activity/condition/pos ition, To improve ability of physical actions for home/community/work/le isure, To improve gait and locomotor functions, To increase flexibility/ROM, To improve endurance, To improve balance and To improve tolerance to ADL's TENS: Yes IF ES: Yes Cryotherapy (ice pack, ice massage): Yes Thermo therapy (hot pack): Yes Ultrasound (thermal/non thermal): Yes For the Purpose of:: To decrease pain, To increase ROM, To improve muscle performance and motor function, To improve ability to perform ADL's, To increase tolerance to activity/condition/pos ition, To improve ability of physical actions for home/community/work/le isure, To improve gait and locomotor functions, To improve endurance, To improve kiesha (more content not included)... Normal [facility] CTA Chest W/WO Contraston CTA Chest W/WO Contrast [facility] Imaging Services [address] [place] [id number] CTA Chest W/WO Contrast MR#: [id number] Acct: [id number] Name: REYES PONCE Rep #: [id number] : 1945 F 79 From: Ronald Brady MD PCP: Dr. North Cuellar MD Status: [facility] [address] Study: CTA Chest W/WO Contrast Date of Exam: 11/25/24 Exam# [id number] Ordering Dr: North Cuellar MD PROCEDURE: CTA CHEST WITH CONTRAST REASON FOR EXAM: FOLLOW-UP THORACIC AORTIC ANEURYSM. TECHNIQUE: Contiguous axial scans of 1.25 mm slice thicknesses. Sagittal and coronal reconstruction images were obtained. One or more dose reduction techniques were used (e.g., automated exposure control, adjustment of mA and/or kv according to patient size, use of iterative reconstruction technique). IV CONTRAST: Isovue 370, 76 mL. COMPARISON: CT chest dated 08/26/2024. FINDINGS: Lungs and Airways: The lungs are normally expanded and clear. Mild chronic interstitial fibrotic changes are again noted throughout both lungs. A few scattered areas of ground-glass opacification are noted in the bilateral lungs. Pleura: No pleural effusion. No pneumothorax. Heart: Normal heart size. No pericardial effusion. Pericardium: No thickening. Coronary arteries: Atherosclerotic calcific disease. Thoracic Aorta: Fusiform aneurysmal dilatation of the ascending aorta at 4.1 cm. Pulmonary Vessels: No large central filling defects. Contrast timing was optimized for evaluation of the aorta. Mediastinum: No mediastinal hilar or axillary lymphadenopathy. Thyroid:No nodules.. Upper Abdomen: Visualized portions of the upper abdominal viscera are unremarkable. Bones: Multilevel spondylosis CT/CTA Chest W/WO Contrast IMPRESSION: Stable fusiform aneurysmal dilatation of the ascending aorta. Chronic interstitial changes throughout both lungs. Scattered areas of ground-glass opacification are of undetermined significance but can indicate mild inflammation. Other nonacute findings detailed above. Reading Location: [place] [address] CC: Dr. North Cuellar MD Advertising Designer: Signed Normal [facility] BLADDER SCANon 11-16-2024 PVR 13 ml [facility] CNOVon 11-16-2024 CNOV Office Visit (URCANT ) REYES PONCE ([id number]) 1945 F Date Time Provider Department 11/16/24 3:30 PM FLAQUITO BRITO URCANT During your visit today, we recorded the following information about you: Flaquito Brito MD 11/16/2024 5:42 PM Signed ESTABLISHED PATIENT OFFICE VISIT F/u UUI. The leakage has decreased with Oxybutynin but persists. She is having significant dry mouth. PVR is 13 cc. LAB RESULTS Creatinine Date Value Ref Range Status 03/22/2023 0.74 0.58 - 0.96 mg/dL Final No results found for: "PSA", "PSASC" GLUCOSE UA (POCT) (mg/dL) Date Value 11/16/2024 Negative BILIRUBIN UA (POCT) (no units) Date Value 11/16/2024 Negative KETONE UA (POCT) (mg/dL) Date Value 11/16/2024 Negative SPECIFIC GRAVITY UA (POCT) (no units) Date Value 11/16/2024 1.015 HEMOGLOBIN/BLOOD UA (POCT) (no units) Date Value 11/16/2024 Negative PH UA (POCT) (no units) Date Value 11/16/2024 6.0 PROTEIN UA (POCT) (mg/dL) Date Value 11/16/2024 Trace (A) UROBILINOGEN UA (POCT) (E.U./dL) Date Value 11/16/2024 0.2 NITRITE UA (POCT) (no units) Date Value 11/16/2024 Negative LEUKOCYTES UA (POCT) (no units) Date Value 11/16/2024 Negative COLOR UA (POCT) (no units) Date Value 11/16/2024 Yellow CLARITY UA (POCT) (no units) Date Value 11/16/2024 Clear ] ALLERGIES Allergen Reactions Ambien [Zolpidem Ta* hallucinations Bactrim [Sulfametho* Rash Codeine tight band around heand AND couldn't breath" Darvocet-N 100 [Pro* Intolerance severe nightmares Hytrin [Terazosin H* swelling of face Iodine Other: See Comments "face swelling" after used in a scan but uses betadine and iodine and eats shellfish without problems. Has had iodine tablets in the past without issue Neurontin [Gabapent* Mental Status Change Vicodin [Hydrocodon* Intolerance very bad nightmares MEDICATIONS: gabapentin (NEURONTIN) 100 mg capsule Take 100 mg by mouth at bedtime as needed. metoprolol succinate ER (TOPROL XL) 25 mg 24 hr tablet Take 25 mg by mouth daily at bedtime. naproxen (NAPROSYN) 250 mg tablet Take 250 mg by mouth two times a day. TAKE WITH FOOD. oxybutynin ER (DITROPAN XL) 10 mg 24 hr tablet Take 1 tablet by mouth once daily. atorvastatin (LIPITOR) 40 mg tablet Take 1 [...] Take 10 mg by mouth once daily. tolterodine ER (DETROL LA) 4 mg 24 hr capsule Take 1 capsule by mouth once daily. levETIRAcetam (KEPPRA) 500 mg tablet Take 1 tablet by mouth twice daily for 5 doses. REVIEW OF SYSTEMS GENERAL:no unintentional weight loss, malaise or fevers. NEUROLOGIC: pt is alert and oriented GASTROINTESTINAL: No nausea, vomiting, or diarrhea GENITOURINARY: see HPI MUSCULOSKELETAL: Negative for joint pain or swelling, back pain or muscle pain SKIN: Negative for lesions, rash, and itching. 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 [facility] UA DIP, URINE (POC)on 2024 BILIRUBIN UA (POCT) Negative Negative [facility] CLARITY UA (POCT) Clear [facility] COLOR UA (POCT) Yellow [facility] GLUCOSE UA (POCT) Negative Negative mg/dL [facility] Hemoglobin Ql (U) Negative Negative [facility] Interpretation and review of laboratory results Abnormal [facility] KETONE UA (POCT) Negative Negative mg/dL [facility] LEUKOCYTES UA (POCT) Negative [facility]) Negative [facility] PH UA (POCT) 6 4.5 - 8.0 [facility] Protein Ql (U) Trace Abnormal Negative mg/dL [facility] SPECIFIC GRAVITY UA (POCT) 1.015 1 .005 - 1.030 [facility] UROBILINOGEN UA (POCT) 0.2 Radha l E.U./dL [facility] Location:[facility], [address] [place] [address] [place] [address], [address] [place] [address] POINT OF CARE [facility] Vitamin D,25 Hydroxyon 11-11 Vitamin D 25-OH 37.5 ng/mL Normal [facility] Comment on above: Result Comment: Juli min D 25(OH) Status Range Deficiency <20 ng/mL (50nmol/L) Insufficiency 20 - 30 ng/mL (50 - 75 nmol/L) Sufficiency 30 - 100 ng/mL (75 - 250 nmol/L) Toxicity >100 ng/mL (>250 nmol/L) Performed By: #### L 506.1000, L500.4050, L501.9520, L100.0100, L500.4100 #### [facility] [address] [place], [address] [id number] DOrdered By: Seng Cuellar on 11-09-2024 Vitamin D 25-Hydroxy 37.5 ng/mL [facility] Comment on above: Vitamin D 25(OH) Sta tus Range Deficiency <20 ng/mL (50nmol/L) Insufficiency 20 - 30 ng/mL (50 - 75 nmol/L) Sufficiency 30 - 100 ng/mL (75 - 250 nmol/L) Toxicity >100 ng/mL (>250 nmol/L) Absolute neutrophil countOrd ered By: North Cuellar on 11-09-2024 Neutrophils (Bld) [#/Vol] 3.3 10*3/uL 2.0-7.7 [facility] Albumin to globulin ratioOrd ered By: North Cuellar on 11-09-2024 Albumin/Globulin [Mass ratio] 1.1 {ratio} 0.9-2.4 [facility] Basophil percentageOrdered B y: North Cuellar on 11-09-2024 Basophils/100 WBC (Bld) 0.9 % 0-1 [facility] Bilirubin, totalOrdered By: North Cuellar on 11-09-2024 Bilirubin [Mass/Vol] 0.40 mg/dL 0.20-1.00 [facility] Comment on above: For patients on eltr ombopag therapy, use of Dimension [place] TBIL is not recommended. Blood urea nitrogen (BUN)/cr eatinine ratioOrdered By: North Cuellar on 11-09-2024 Urea nitrogen/Creatinine [Mass ratio] 15.7 mg/mg 10-20 [facility] CBC W/Diff, Automatedon 10-23 Absolute Lymph 1.67 X10 3/uL Normal 0.83-4.51 [facility] Comment on above: Performed By: #### L 501.1200, L100.0100, L501.9985, L500.4050, L500.4100, L502.0250, L506.1000, L501.9520 #### [facility] [address] [place], [address] Absolute Neut 3.3 X10 3/uL Normal 2.0-7.7 [facility] Comment on above: Performed By: #### L 501.1200, L100.0100, L501.9985, L500.4050, L500.4100, L502.0250, L506.1000, L501.9520 #### [facility] [address] [place], [address] (465 Basophils/100 WBC (Bld) 0.9 % Normal 0-1 [facility] Comment on above: Performed By: #### L 501.1200, L100.0100, L501.9985, L500.4050, L500.4100, L502.0250, L506.1000, L501.9520 #### [facility] [address] [place], [address] Eosinophils/100 WBC (Bld) 1.0 % Normal 0-5 [facility] Comment on above: Performed By: #### L 501.1200, L100.0100, L501.9985, L500.4050, L500.4100, L502.0250, L506.1000, L501.9520 #### [facility] [address] [place], [address] Erythrocyte distribution width (RBC) [Ratio] 14.4 % Normal 11.6-14.6 [facility] Comment on above: Performed By: #### L 501.1200, L100.0100, L501.9985, L500.4050, L500.4100, L502.0250, L506.1000, L501.9520 #### [facility] [address] [place], [address] Hematocrit (Bld) [Volume fraction] 39.8 % Normal 37-47 [facility] Comment on above: Performed By: #### L 501.1200, L100.0100, L501.9985, L500.4050, L500.4100, L502.0250, L506.1000, L501.9520 #### [facility] [address] [place], [address] Hemoglobin (Bld) [Mass/Vol] 13.3 g/dL Normal 12.0-15. 0 [facility] Comment on above: Performed By: #### L 501.1200, L100.0100, L501.9985, L500.4050, L500.4100, L502.0250, L506.1000, L501.9520 #### [facility] [address] [place], [address] IG% 0.700 Normal 0.0-0.9 [facility] Comment on above: Result Comment: IG% - Immature Granulocytes (promyelocytes, myelocytes and metamyelocytes) > 1% indicates that a LEFT SHIFT is Present. Performed By: #### L 501.1200, L100.0100, L501.9985, L500.4050, L500.4100, L502.0250, L506.1000, L501.9520 #### [facility] [address] [place], [address] Lymphocytes/100 WBC (Bld) 29.1 % Normal 19-41 [facility] Comment on above: Performed By: #### L 501.1200, L100.0100, L501.9985, L500.4050, L500.4100, L502.0250, L506.1000, L501.9520 #### [facility] [address] [place], [address] MCH (RBC) [Entitic mass] 32.9 pg High 27.0-32.0 [facility] Comment on above: Performed By: #### L 501.1200, L100.0100, L501.9985, L500.4050, L500.4100, L502.0250, L506.1000, L501.9520 #### [facility] [address] [place], [address] MCHC (RBC) [Mass/Vol] 33.4 g/dL Normal 32-36 [facility] Comment on above: Performed By: #### L 501.1200, L100.0100, L501.9985, L500.4050, L500.4100, L502.0250, L506.1000, L501.9520 #### [facility] [address] [place], [address] MCV (RBC) [Entitic vol] 98.5 fL Normal 81-99 [facility] Comment on above: Performed By: #### L 501.1200, L100.0100, L501.9985, L500.4050, L500.4100, L502.0250, L506.1000, L501.9520 #### [facility] [address] [place], [address] Monocytes/100 WBC (Bld) 10.8 % High 0-10 [facility] Comment on above: Performed By: #### L 501.1200, L100.0100, L501.9985, L500.4050, L500.4100, L502.0250, L506.1000, L501.9520 #### [facility] [address] [place], [address] Neutrophils/100 WBC (Bld) 57.5 % Normal 47-70 [facility] Comment on above: Performed By: #### L 501.1200, L100.0100, L501.9985, L500.4050, L500.4100, L502.0250, L506.1000, L501.9520 #### [facility] [address] [facility] [place], [address] Nucleated RBC (Bld) [#/Vol] 0 10*3/uL Normal 0-5 [facility] Comment on above: Performed By: #### L 501.1200, L100.0100, L501.9985, L500.4050, L500.4100, L502.0250, L506.1000, L501.9520 #### [facility] [address] [place], [address] Platelet mean volume (Bld) [Entitic vol] 9.9 fL Normal 6.2-12.0 [facility] Comment on above: Performed By: #### L 501.1200, L100.0100, L501.9985, L500.4050, L500.4100, L502.0250, L506.1000, L501.9520 #### [facility] [address] [place], [address] Platelets (Bld) [#/Vol] 215 10*3/uL Normal 150-450 [facility] Comment on above: Performed By: #### L 501.1200, L100.0100, L501.9985, L500.4050, L500.4100, L502.0250, L506.1000, L501.9520 #### [facility] [address] [place], [address] RBC (Bld) [#/Vol] 4.04 10*6/uL Low 4.2-5.4 [facility] Comment on above: Performed By: #### L 501.1200, L100.0100, L501.9985, L500.4050, L500.4100, L502.0250, L506.1000, L501.9520 #### [facility] [address] [place], [address] RDW SD 52.2 fl High 35.1-43.9 [facility] Comment on above: Performed By: #### L 501.1200, L100.0100, L501.9985, L500.4050, L500.4100, L502.0250, L506.1000, L501.9520 #### [facility] [address] [place], [address] WBC (Bld) [#/Vol] 5.7 10*3/uL Normal 4.4-11.0 [facility] Comment on above: Performed By: #### L 501.1200, L100.0100, L501.9985, L500.4050, L500.4100, L502.0250, L506.1000, L501.9520 #### [facility] [address] [place], [address] Carbon dioxide measurementOr dered By: North Cuellar on 11-09-2024 CO2 [Moles/Vol] 26.0 mmol/L 21.0-32.0 [facility] Chloride measurementOrdered By: North Cuellar on 11-09-2024 Chloride [Moles/Vol] 100 mmol/L 98-107 [facility] Comprehensive Metabolic Prof ilon 11-09-2024 Albumin [Mass/Vol] 3.9 g/dL Normal 3.2-5.0 [facility] Comment on above: Performed By: #### L 506.1000, L500.4050, L501.9520, L100.0100, L500.4100 #### [facility] [address] [place], [address] Albumin/Globulin [Mass ratio] 1.1 {ratio} Normal 0.9-2.4 [facility] Comment on above: Performed By: #### L 506.1000, L500.4050, L501.9520, L100.0100, L500.4100 #### [facility] [address] [place], [address] ALK P 118 U/L High 45-117 [facility] Comment on above: Performed By: #### L 506.1000, L500.4050, L501.9520, L100.0100, L500.4100 #### [facility] [address] [place], [address] ALT [Catalytic activity/Vol] 25 U/L Normal 13-56 [facility] Comment on above: Performed By: #### L 506.1000, L500.4050, L501.9520, L100.0100, L500.4100 #### [facility] [address] [place], [address] AST [Catalytic activity/Vol] 23 U/L Normal 15-37 [facility] Comment on above: Performed By: #### L 506.1000, L500.4050, L501.9520, L100.0100, L500.4100 #### [facility] [address] [place], [address] Bilirubin [Mass/Vol] 0.40 mg/dL Normal 0.20-1.00 [facility] Comment on above: Result Comment: For patients on eltrombopag therapy, use of Dimension [place] TBIL is not recommended. Performed By: #### L 506.1000, L500.4050, L501.9520, L100.0100, L500.4100 #### [facility] [address] [place], [address] BUN/CRE 15.7 RATIO Normal 10-20 [facility] Comment on above: Performed By: #### L 506.1000, L500.4050, L501.9520, L100.0100, L500.4100 #### [facility] [address] [place], [address] CA,Total 9.3 mg/dL Normal 8.5-10.1 [facility] Comment on above: Performed By: #### L 506.1000, L500.4050, L501.9520, L100.0100, L500.4100 #### [facility] [address] [place], [address] Chloride [Moles/Vol] 100 mmol/L Normal 98-107 [facility] Comment on above: Performed By: #### L 506.1000, L500.4050, L501.9520, L100.0100, L500.4100 #### [facility] [address] [place], [address] CO2 [Moles/Vol] 26.0 mmol/L Normal 21.0-32.0 [facility] Comment on above: Performed By: #### L 506.1000, L500.4050, L501.9520, L100.0100, L500.4100 #### [facility] [address] [place], [address] Creatinine [Mass/Vol] 0.89 mg/dL Normal 0.55-1.02 [facility] Comment on above: Result Comment: The validity of the calculated GFR GFRAA in patients over 70 years has not been determined. Clinical correlation is essential. Performed By: #### L 506.1000, L500.4050, L501.9520, L100.0100, L500.4100 #### [facility] [address] [place], [address] EST GFR - AA 78 mL/min Normal >60 [facility] Comment on above: Result Comment: Afri can [place] GFR Calc Performed By: #### L 506.1000, L500.4050, L501.9520, L100.0100, L500.4100 #### [facility] [address] [place], [address] GAP 10 Normal 5-15 [facility] Comment on above: Performed By: #### L 506.1000, L500.4050, L501.9520, L100.0100, L500.4100 #### [facility] [address] [place], [address] GFR/1.73 sq M.predicted among non-blacks MDRD (S/P/Bld) [Vol rate/Area] 65 mL/min/{1.73_m2} Normal >60 [facility] Comment on above: Result Comment: Non- GFR Calc Performed By: #### L 506.1000, L500.4050, L501.9520, L100.0100, L500.4100 #### [facility] [address] [place], [address] Globulin (S) [Mass/Vol] 3.4 g/dL Normal 2.2-4.2 [facility] Comment on above: Performed By: #### L 506.1000, L500.4050, L501.9520, L100.0100, L500.4100 #### [facility] [address] [place], [address] Glucose [Mass/Vol] 94 mg/dL Normal 74-106 [facility] Comment on above: Performed By: #### L 506.1000, L500.4050, L501.9520, L100.0100, L500.4100 #### [facility] [address] [place], [address] Potassium [Moles/Vol] 3.4 mmol/L Low 3.5-5.1 [facility] Comment on above: Performed By: #### L 506.1000, L500.4050, L501.9520, L100.0100, L500.4100 #### [facility] [address] [place], [address] Sodium [Moles/Vol] 136 mmol/L Normal 136-145 [facility] Comment on above: Performed By: #### L 506.1000, L500.4050, L501.9520, L100.0100, L500.4100 #### [facility] [address] [place], [address] T PROT 7.3 g/dL Normal 6.4-8.2 [facility] Comment on above: Performed By: #### L 506.1000, L500.4050, L501.9520, L100.0100, L500.4100 #### [facility] [address] [place], [address] Urea nitrogen [Mass/Vol] 14 mg/dL Normal 7-18 [facility] Comment on above: Performed By: #### L 506.1000, L500.4050, L501.9520, L100.0100, L500.4100 #### [facility] [address] [place], [address] Creatinine, Urine (random)on 11-09-2024 UR CREAT 170.00 mg/dL Normal NO RANGE EST. [facility] Comment on above: Performed By: #### L 501.1200, L100.0100, L501.9985, L500.4050, L500.4100, L502.0250, L506.1000, L501.9520 #### [facility] [address] [place], [address] Eosinophil percentageOrdered By: North Cuellar on 11-09-2024 Eosinophils/100 WBC (Bld) 1.0 % 0-5 [facility] Erythrocyte distribution wid th ratioOrdered By: North Cuellar on 11-09-2024 Erythrocyte distribution width (RBC) [Ratio] 14.4 % 11.6-14.6 [facility] Erythrocyte distribution wid th standard deviationOrdered By: North Cuellar on 11-09-2024 Erythrocyte distribution width (RBC) [Entitic vol] 52.2 fL High 35.1-43.9 [facility] Estimated glomerular filtrat ion rate (GFR) AmericanOrdered By: North Cuellar on 11-09-2024 Estimated GFR (MDRD) Amer 78 mL/min >60 [facility] Comment on above: GFR Calc Glomerular filtration rate ( GFR) estimationOrdered By: North Cuellar on 11-09-2024 Estimated GFR (MDRD) Non-Af Amer 65 mL/min >60 [facility] Comment on above: Non- GFR Calc Glucose measurementOrdered B y: North Cuellar on 11-09-2024 Glucose [Mass/Vol] 94 mg/dL 74-106 [facility] Hematocrit Auto (Bld) [Volum e fraction]Ordered By: North Cuellar on 11-09-2024 Hematocrit (Bld) [Volume fraction] 39.8 % 37-47 [facility] Hemoglobin A1con 11-09-2024 HbA1c (Bld) [Mass fraction] 6.4 % High 3.8-5.6 [facility] Comment on above: Result Comment: Norm al < 5.7 % Prediabetic 5.7 - 6.4 % Diabetic >or= 6.5 % Please note range changes. Performed By: #### L 506.1000, L500.4050, L501.9520, L100.0100, L500.4100 #### [facility] [address] [place], [address] Hemoglobin A1c percentageOrd ered By: North Cuellar on 11-09-2024 HbA1c (Bld) [Mass fraction] 6.4 % High 3.8-5.6 [facility] Comment on above: Normal < 5.7 % Predi abetic 5.7 - 6.4 % Diabetic >or= 6.5 % Please note range changes. Hemoglobin measurementOrdere d By: North Cuellar on 11-09-2024 Hemoglobin (Bld) [Mass/Vol] 13.3 g/dL 12.0-15. 0 [facility] High density lipoprotein (HD L) measurementOrdered By: North Cuellar on 11-09-2024 Cholesterol in HDL [Mass/Vol] 52 mg/dL >40 [facility] Comment on above: The drugs N-Acetylcy steine and Metamizole may falsely depress this assay. Reference Range HDL <40 mg/dL Low HDL Cholesterol HDL >or= 60 mg/dL High HDL Cholesterol Immature granulocytes/100 WB C Auto (Bld)Ordered By: North Cuellar on 11-09-2024 Immature granulocytes/100 WBC (Bld) 0.700 % 0.0-0.9 [facility] Comment on above: IG% - Immature Granu locytes (promyelocytes, myelocytes and metamyelocytes) > 1% indicates that a LEFT SHIFT is Present. Laboratory - Chemistry and C hemistry - challengeOrdered By: North Cuellar on 11-09-2024 AST [Catalytic activity/Vol] 23 U/L 15-37 [facility] Lipid Profileon 11-09-2024 Cholesterol [Mass/Vol] 226 mg/dL High 200 [facility] Comment on above: Result Comment: <200 mg/dL Desirable 200-240 mg/dL Borderline >240 mg/dL High Risk Performed By: #### L 506.1000, L500.4050, L501.9520, L100.0100, L500.4100 #### [facility] [address] [place], [address] Cholesterol in HDL [Mass/Vol] 52 mg/dL Normal [facility] Comment on above: Result Comment: The drugs N-Acetylcysteine and Metamizole may falsely depress this assay. Reference Range HDL <40 mg/dL Low HDL Cholesterol HDL >or= 60 mg/dL High HDL Cholesterol Performed By: #### L 506.1000, L500.4050, L501.9520, L100.0100, L500.4100 #### [facility] [address] [place], [address] Cholesterol in LDL [Mass/Vol] 134 mg/dL High 0-130 [facility] Comment on above: Performed By: #### L 506.1000, L500.4050, L501.9520, L100.0100, L500.4100 #### [facility] [address] [place], [address] Cholesterol in VLDL [Mass/Vol] 40 mg/dL Normal 5-40 [facility] Comment on above: Performed By: #### L 506.1000, L500.4050, L501.9520, L100.0100, L500.4100 #### [facility] [address] [place], [address] Triglyceride [Mass/Vol] 199 mg/dL Normal [facility] Comment on above: Result Comment: The drugs N-Acetylcysteine and Metamizole may falsely depress this assay. Serum Triglycerides Reference Interval Normal <150 mg/dL Borderline high 150 - 199 mg/dL High 200 - 499 mg/dL Very High > or = 500 mg/dL Performed By: #### L 506.1000, L500.4050, L501.9520, L100.0100, L500.4100 #### [facility] [address] [place], [address] Low density lipoprotein (LDL ) cholesterol measurementOrdered By: North Cuellar on 11-09-2024 Cholesterol in LDL [Mass/Vol] 134 mg/dL High 0-130 [facility] Lymphocytes Auto (Unsp spec) [#/Vol]Ordered By: North Cuellar on 11-09-2024 Lymphocytes (Bld) [#/Vol] 1.67 10*3/uL 0.83-4.5 1 [facility] Lymphocytes/100 WBC Auto (Un sp spec)Ordered By: North Polo on 11-09-2024 Lymphocytes/100 WBC (Bld) 29.1 % 19-41 [facility] MCV (mean corpuscular volume ) determinationOrdered By: North Cuellar on 11-09-2024 MCV (RBC) [Entitic vol] 98.5 fL 81-99 [facility] Mean corpuscular hemoglobin (MCH) determinationOrdered By: North Meltonok on 11-09-2024 MCH (RBC) [Entitic mass] 32.9 pg High 27.0-32.0 [facility] Mean corpuscular hemoglobin concentration (MCHC) determinationOrdered By: North Cuellar on 11-09-2024 MCHC (RBC) [Mass/Vol] 33.4 g/dL 32-36 [facility] Mean platelet volume determi nationOrdered By: North Cuellar on 11-09-2024 Platelet mean volume (Bld) [Entitic vol] 9.9 fL 6.2-12.0 [facility] Microalb:Creat Ratio,Random URon 11-09-2024 MALB:CRE 11.6 mg/g CRE Normal <30 mg/g CRE [facility] Comment on above: Performed By: #### L 506.1000, L500.4050, L501.9520, L100.0100, L500.4100 #### [facility] [address] [place], [address] MICROALBUMIN,UR 19.8 mg/L Normal NO RANGE EST. [facility] Comment on above: Performed By: #### L 506.1000, L500.4050, L501.9520, L100.0100, L500.4100 #### [facility] [address] [place], [address] Monocyte percentageOrdered B y: North Cuellar on 11-09-2024 Monocytes/100 WBC (Bld) 10.8 % High 0-10 [facility] Neutrophil percentageOrdered By: North Cuellar on 11-09-2024 Neutrophils/100 WBC (Bld) 57.5 % 47-70 [facility] Nucleated red blood cell per centageOrdered By: North Cuellar on 11-09-2024 Nucleated RBC/100 WBC (Bld) [Ratio] 0 % 0-5 [facility] Platelet countOrdered By: Salvatore Cuellar on 11-09-2024 Platelets (Bld) [#/Vol] 215 10*3/uL 150-450 [facility] Potassium measurementOrdered By: North Cuellar on 11-09-2024 Potassium [Moles/Vol] 3.4 mmol/L Low 3.5-5.1 [facility] RBC Auto (Bld) [#/Vol]Ordere d By: North Cuellar on 11-09-2024 RBC (Bld) [#/Vol] 4.04 10*6/uL Low 4.2-5.4 [facility] Random urine microalbumin me asurementOrdered By: North Cuellar on 11-09-2024 Urine Random Microalbumin 19.8 mg/L NO RANGE EST. [facility] Serum anion gap measurementO rdered By: North Cuellar 11-09-2024 Anion gap [Moles/Vol] 10 mmol/L 5-15 [facility] Serum globulin measurementOr dered By: North Cuellar 11-09-2024 Globulin (S) [Mass/Vol] 3.4 g/dL 2.2-4.2 [facility] Serum or plasma alanine zavala otransferase (ALT) measurementOrdered By: North Cuellar 11-09-2024 ALT [Catalytic activity/Vol] 25 U/L 13-56 [facility] Serum or plasma albumin shamar urement (mass/volume)Ordered By: North Cuellar 11-09-2024 Albumin [Mass/Vol] 3.9 g/dL 3.2-5.0 [facility] Serum or plasma alkaline emma sphatase measurementOrdered By: North Cuellar 11-09-2024 ALP [Catalytic activity/Vol] 118 U/L High 45-117 [facility] Serum or plasma calcium shamar urement (mass/volume)Ordered By: North Cuellar on 11-09-2024 Calcium [Mass/Vol] 9.3 mg/dL 8.5-10.1 [facility] Serum or plasma cholesterol measurement (mass/volume)Ordered By: North Cuellar on 11-09-2024 Cholesterol [Mass/Vol] 226 mg/dL High <200 [facility] Comment on above: <200 mg/dL Desirable 200-240 mg/dL Borderline >240 mg/dL High Risk Serum or plasma creatinine m easurement (mass/volume)Ordered By: North Cuellar on 11-09-2024 Creatinine [Mass/Vol] 0.89 mg/dL 0.55-1.02 [facility] Comment on above: The validity of the calculated GFR & GFRAA in patients over 70 years has not been determined. Clinical correlation is essential. Serum or plasma urea nitroge n measurement (mass/volume)Ordered By: North Cuellar on 11-09-2024 Urea nitrogen [Mass/Vol] 14 mg/dL 04-08 [facility] Sodium levelOrdered By: North Cuellar on 11-09-2024 Sodium [Moles/Vol] 136 mmol/L 136-145 [facility] TSH QnOrdered By: North starr n 11-09-2024 Thyroid Stimulating Hormone (TSH) 0.759 uIU/mL 0.358-3.74 0 [facility] Thyroid Stim Hormone (TSH)on 11-09-2024 TSH 0.759 uIU/mL Normal 0.358-3.74 0 [facility] Comment on above: Performed By: #### L 506.1000, L500.4050, L501.9520, L100.0100, L500.4100 #### [facility] [address] [place], [place], [id number] Total proteinOrdered By: North Cuellar on 11-09-2024 Protein [Mass/Vol] 7.3 g/dL 6.4-8.2 [facility] Triglycerides measurementOrd ered By: North Cuellar on 11-09-2024 Triglyceride [Mass/Vol] 199 mg/dL <199 [facility] Comment on above: The drugs N-Acetylcy steine and Metamizole may falsely depress this assay.Serum Triglycerides Reference Interval Normal <150 mg/dL Borderline high 150 - 199 mg/dL High 200 - 499 mg/dL Very High > or = 500 mg/dL Urine albumin/creatinine rat io for detection of microalbuminuriaOrdered By: North Cuellar on 11-09-2024 Urine Microalbumin/Creatinine Ratio 11.6 mg/g CRE <30 [facility] Urine creatinine measurement (mass/volume)Ordered By: North Cuellar on 11-09-2024 Creatinine (U) [Mass/Vol] 170.00 mg/dL NO RANGE EST. [facility] Very low density lipoprotein (VLDL) cholesterol measurementOrdered By: North Cuellar on 11-09-2024 VLDL Cholesterol 40 mg/dL 5-40 [facility] White blood cell (WBC) count Ordered By: North Cuellar on 11-09-2024 WBC (Bld) [#/Vol] 5.7 10*3/uL 4.4-11.0 [facility] Abdomen/Pelvis WITH Contrast on 10-13-2024 Abdomen/Pelvis WITH Contrast [facility] [address] [place] [address] Abdomen/Pelvis WITH Contrast MR#: [id number] Acct: [id number] Name: REYES PONCE Rep #: [id number] : 1945 F 79 From: Bryan castle MD PCP: Dr. North Cuellar MD Status: [facility] CL Study: Abdomen/Pelvis WITH Contrast Date of Exam: Exam# [id number] Ordering Dr: North Cuellar MD [id number] STUDY: CT ABDOMEN AND PELVIS WITH CONTRAST REASON FOR EXAM: Female, 79 years old. ABD PAIN RADIATION DOSAGE (If Supplied By Facility): CTDIvol = ( 19.26 ) mGy, DLP = ( 954.84 ) mGycm TECHNIQUE: Oral and amp;amp; IV Readi-CAT and amp;amp; 100mL Isovue-300 was administered. Transaxial images were obtained from the dome of the diaphragm to the symphysis pubis in the portal venous phase. Multiplanar coronal and sagittal images were reformatted. Individualized Dose Optimization Techniques Were Used For This CT. COMPARISON: Prior study dated: 08/26/2024 FINDINGS: LOWER CHEST: Lung bases are clear. No cardiomegaly or pericardial effusion. LIVER: The liver is normal in size, shape, and attenuation. No focal mass. GALLBLADDER AND BILIARY TREE: Cholecystectomy. No intra- or extrahepatic biliary ductal dilation. PANCREAS: No focal cystic or solid mass. SPLEEN: Normal size without focal cystic or solid mass. ADRENAL GLANDS: No nodules. KIDNEYS AND URETERS: Normal renal size and position. No hydronephrosis or nephrolithiasis. PERITONEUM: No ascites or free air. No other fluid collection. BOWEL: The stomach is unremarkable. Normal caliber small bowel. There is no obstruction. Enteric contrast in the small bowel extends into the pelvis. There is some small bowel fecalization, suggesting slow transit. No colonic wall thickening or inflammation. Prominent colonic diverticulosis without diverticulitis. Appendix not seen. LYMPH NODES: No enlarged mesenteric or retroperitoneal lymph nodes. VESSELS: The aorta is normal in caliber with moderate atherosclerotic calcification. URINARY BLADDER: Unremarkable. REPRODUCTIVE ORGANS: No pelvic masses. ABDOMINAL WALL: No discrete abdominal or pelvic wall hernia. BONES: No lytic or blastic abnormality. Moderate degenerative change of the lumbar spine. Chronic height loss at the L4 vertebral body, though this has mildly progressed from prior. There is up to 40% loss of height. CT/Abdomen/Pelvis WITH Contrast IMPRESSION: Progressive height loss of the L4 vertebral body, now with 40% loss of height. No acute inflammatory changes in the abdomen or pelvis. No bowel obstruction. Colonic diverticulosis without diverticulitis. Electronically Signed: Bryan Sanders MD at 13:22 EST , CC: Dr. North Cuellar MD Advertising Designer: Signed Normal [facility] BLADDER SCANon 10-05-2024 0ml [facility] Bacteria Ur Culton 5 Bacteria identified Cx Nom (U) ORGANISM ID: 1 50,000-<100,000 CFU/ml Mixed microbiota No further workup. Mixed microbiota can be due to???urine???contamina tion with skin bacteria at time of collection or presence of a long-term urinary catheter. If a new culture is needed, please consider re-education of the patient on proper midstream collection technique or straight catheterization for???urine???collecti on. Normal [facility] Comment on above: Performed By: #### 6 30-4 #### [facility] CLIA [id number] [address] [place] [address] OF [facility] CNOVon 10-05-2024 CNOV Office Visit (URCANT ) REYES PONCE ([id number]) 1945 F Date Time Provider Department 10/05/24 4:00 PM FLAQUITO BRITO URCANT During your visit today, we recorded the following information about you: Weight Height 68 kg 1.575 m Flaquito Brito MD 10/05/2024 4:58 PM Signed NEW PATIENT OFFICE VISIT The patient is here for evaluation of urgency urinary incontinence. She had a sling procedure for stress urinary incontinence in the remote past. Approximately 6 weeks ago she fell and hurt her hip. She is taking pain medicine for this. Since this time she has developed urgency urinary incontinence. Her bowels are moving adequately. She denies gross hematuria. PVR is 0 LAB RESULTS Creatinine Date Value Ref Range Status 03/22/2023 0.74 0.58 - 0.96 mg/dL Final No results found for: "PSA", "PSASC" GLUCOSE UA (POCT) (mg/dL) Date Value 10/05/2024 Negative BILIRUBIN UA (POCT) (no units) Date Value 10/05/2024 Small (A) KETONE UA (POCT) (mg/dL) Date Value 10/05/2024 15 (A) SPECIFIC GRAVITY UA (POCT) (no units) Date Value 10/05/2024 1.025 HEMOGLOBIN/BLOOD UA (POCT) (no units) Date Value 10/05/2024 Negative PH UA (POCT) (no units) Date Value 10/05/2024 5.5 PROTEIN UA (POCT) (mg/dL) Date Value 10/05/2024 30 (A) UROBILINOGEN UA (POCT) (E.U./dL) Date Value 10/05/2024 0.2 NITRITE UA (POCT) (no units) Date Value 10/05/2024 Negative LEUKOCYTES UA (POCT) (no units) Date Value 10/05/2024 Negative COLOR UA (POCT) (no units) Date Value 10/05/2024 Yellow CLARITY UA (POCT) (no units) Date Value 10/05/2024 Clear ] ALLERGIES Allergen Reactions Ambien [Zolpidem Ta* hallucinations Bactrim [Sulfametho* Rash Codeine tight band around heand AND couldn't breath" Darvocet-N 100 [Pro* Intolerance severe nightmares Hytrin [Terazosin H* swelling of face Iodine Other: See Comments "face swelling" after used in a scan but uses betadine and iodine and eats shellfish without problems. Has had iodine tablets in the past without issue Neurontin [Gabapent* Mental Status Change Vicodin [Hydrocodon* Intolerance very bad nightmares MEDICATIONS: gabapentin (NEURONTIN) 100 mg capsule Take 100 mg by mouth at bedtime as needed. metoprolol succinate ER (TOPROL XL) 25 mg 24 hr tablet Take 25 mg by mouth daily at bedtime. naproxen (NAPROSYN) 250 mg tablet Take 250 mg by mouth two times a day. TAKE WITH FOOD. pantoprazole DR (PROTONIX) 40 mg tablet Take 1 tablet by mouth once daily. clopidogrel (PLAVIX) 75 mg tablet Take 75 mg by mouth once daily. ubidecarenone Q-10 (CO Q-10) 10 mg cap Take 10 mg by mouth once daily. oxybutynin ER (DITROPAN XL) 10 mg 24 hr tablet Take 1 tablet by mouth once daily. atorvastatin (LIPITOR) 40 mg tablet Take 1 tablet by mouth once daily. citalopram hydrobromide (CELEXA) 10 mg tablet Take 1 tablet by mouth every afternoon. levETIRAcetam (KEPPRA) 500 mg tablet Take 1 tablet by mouth twice daily for 5 doses. REVIEW OF SYSTEMS GENERAL:no unintentional weight loss, malaise or fevers. NEUROLOGIC: pt is alert and oriented GASTROINTESTINAL: No nausea, vomiting, or diarrhea GENITOURINARY: See HPI MUSCULOSKELETAL: Negative for joint pain or swelling, back pain or muscle pain SKIN: Negative for lesions, rash, and itching. 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 Normal [facility] UA DIP, URINE (POC)on 2024 BILIRUBIN UA (POCT) Small Abnormal Negative [facility] CLARITY UA (POCT) Clear [facility] COLOR UA (POCT) Yellow [facility] GLUCOSE UA (POCT) Negative Negative mg/dL [facility] Hemoglobin Ql (U) Negative [facility] Interpretation and review of laboratory results Abnormal [facility] KETONE UA (POCT) 15 mg/dL Abnormal [facility] LEUKOCYTES UA (POCT) Negative [facility] NITRITE UA (POCT) Negative [facility] PH UA (POCT) 5.5 4.5 - 8.0 [facility] Protein Ql (U) 30 mg/dL Abnormal Negative [facility] SPECIFIC GRAVITY UA (POCT) 1.025 1 .005 - 1.030 [facility] UROBILINOGEN UA (POCT) 0.2 Radha l E.U./dL [facility] Location:[facility], [address] [place] [address], [address] [place] [address] POINT OF CARE [facility] Hans 10-01-2024 MAREN Telephone (URCANT) REYES PONCE ([id number]) 1945 F Date Time Provider Department 10/01/24 FLAQUITO BRITO During your visit today, we recorded the following information about you: Agnieszak Lizarraga 10/01/2024 12:49 PM Signed Called and spoke with patient to get some more information from her regarding her "dropped bladder". She stated she had a procedure 4 years ago up at [facility] where the doctor formed a cradle and attached her bladder so that it was in the proper place. Stated she fell and when she fell it felt like her bladder popped out of place. She said she is very uncomfortable. If she has to urinate she has to go right then. Denies leaking. Having urgency and pressure. Was in the ER 3 weeks ago for multiple issues. States her bladder was out of control. They told her she had a UTI, treated it for 3 days and told her it was clear again?? She said she is having memory issues. Agnieszka Lizarraga PHARMACY CASHIER Allergies As of Date: 10/01/2024 Noted Allergy Reaction AMBIEN (ZOLPIDEM TARTRATE) 09/24/2006 Comments: hallucinations BACTRIM (SULFAMETHOXAZOLE-TRIM ETH*12/01/2019 2 - Rash CODEINE 04/03/2006 Comments: "tight band around heand AND couldn't breath" DARVOCET-N 100 (PROPOXYPHENE N-AC*05/18/2008 5 - Intolerance Comments: severe nightmares HYTRIN (TERAZOSIN HCL) 04/03/2006 Comments: swelling of face IODINE 04/03/2006 14 - Other: See Comments Comments: "face swelling" after used in a scan but uses betadine and iodine and eats shellfish without problems. Has had iodine tablets in the past without issue NEURONTIN (GABAPENTIN) 03/08/2014 1 - Mental Status Change VICODIN (HYDROCODONE-ACETAMINO PHE*05/18/2008 5 - Intolerance Comments: very bad nightmares Date Reviewed: 04/08/2023 Reviewed by: Justin Street MD - Fully Assessed Reason for Visit: Appointment [186] Prescriptions as of 10/01/2024 - atorvastatin (LIPITOR) 40 mg tablet Take 1 tablet by mouth once daily. - citalopram hydrobromide (CELEXA) 10 mg tablet Take 1 tablet by mouth every afternoon. - pantoprazole DR (PROTONIX) 40 mg tablet Take 1 tablet by mouth once daily. - clopidogrel (PLAVIX) 75 mg tablet Take 75 mg by mouth once daily. - levETIRAcetam (KEPPRA) 500 mg tablet Take 1 tablet by mouth twice daily for 5 doses. - ubidecarenone Q-10 (CO Q-10) 10 mg cap Take 10 mg by mouth once daily. Problem List As Of Date 10/01/2024 Noted Resolved ESOPHAGEAL REFLUX [K21.9] GENERALIZED ANXIETY [...] study [G93.89] 10/21/2018 Essential hypertension [I10] 09/07/2019 SDH (subdural hematoma) (HCC) [S06.5XAA] 03/19/2023 Fall [W19.XXXA] 03/20/2023 Platelet inhibition due to Plavix [Z79.02] 03/20/2023 Hyponatremia [E87.1] 03/20/2023 Cerebral salt-wasting syndrome [E87.1] 03/21/2023 Encounter Status:Closed by AGNIESZKA LIZARRAGA on 10/01/24 [facility] Brain/Head without Contrast n 09-06-2024 Brain/Head without Contrast [facility] Imaging Services [address] [place] [address] [id number] Brain/Head without Contrast MR#: [id number] Acct: [id number] Name: REYES PONCE Rep #: [id number] : 1945 F 79 From: Jose Ervin DO PCP: Dr. North Cuellar MD Status: REG CLI Study: Brain/Head without Contrast Date of Exam: 08/22 03/15 Exam# [id number] Ordering Dr: North Cuellar MD [id number] STUDY: CT BRAIN WITHOUT CONTRAST REASON FOR EXAM: Female, 79 years old. HEADACHES FOLLOWING A FALL LAST FRIDAY NIGHT, DIZZINESS RADIATION DOSAGE (If Supplied By Facility): CTDIvol = ( 44.99 ) mGy, DLP = ( 762.36 ) mGycm TECHNIQUE: Transaxial CT imaging of the brain was performed without administration of intravenous contrast material. Individualized dose optimization techniques were used for this CT. COMPARISON: August 25, 2024 FINDINGS: Normal soft tissue structures. Normal calvarium. Normal size ventricles and extra-axial spaces for the patient''s age. Bilateral white matter microangiopathic ischemic changes of the cerebral hemispheres. 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 Normal thalami. Normal brainstem. Normal cerebellum. There is no intracranial hemorrhage. There are no findings of an acute ischemic infarction. Normal visualized paranasal sinuses. CT/Brain/Head without Contrast IMPRESSION: Age-related and chronic changes of the brain similar to previous study. Electronically Signed: Jose Ervin DO at 17:19 EST Reading Location ID and State: [facility] / [place] Tel [phone], Service support , CC: Dr. North Cuellar MD Advertising Designer: Signed Normal [facility] Bedside Glucoseon 08-28-2024 FINGERSTICK GLU 120 mg/dL High 74-106 [facility] Comment on above: Result Comment: ZAYNAB STEWART OF PATIENT CARE PER NURSING PROTOCOL Performed By: #### L 501.080 #### [facility] Laboratory [address] [place], [address] Discharge Instructionon Discharge Instruction [facility] Medical Records Department [address] [place] [address] Instructions for Home/Discharge Instructions 08/28/24 0945 MR#: [id number] Acct: [id number] Name: REYES PONCE Rep #: [id number] : 1945 79 From: Adis Walker MD PCP: Dr. North Cuellar MD Status:ADM IN Discharge Instructions Diet Discharge Diet: 2000 mg Sodium Diet DC O2, CPAP, BIPAP needs Additional Home O2 Discharge instructions: No Dressing / Incision Discharge Activity: Return to Normal Activity Weight Bearing Status: Weight bearing as tolerated Dressing / Incision Call your doctor if you observe: Fever of 101 or Higher, Coldness, Increased Pain, Numbness or Tingling, Change in Color, Inability to urinate, Inability to have a bowel movement, Shortness of breath, Dizziness, Fainting spells, Swelling in the ankles, Chest pain, Prolonged hiccupping, Increased palpitations (irregular heartbeat) and Calf discomfort Follow Up Care When: IN 2 WEEKS Test Results: Test results from this visit will be discussed in further detail at your follow-up appointment, if applicable. Discharge Plan Admission Admit Date/Time: 08/26/24 20:30 Attending Provider: Adis Walker Primary Care Provider: North Cuellar Chi Consulting Providers: Augie Horn Discharge Orders/Prescriptions Prescriptions: New acetaminophen 500 mg Tablet 1,000 mg PO Q8H PRN PRN (Reason: Headache/Fever (T>102.5)) Qty: 0 0RF Rx Instructions: Cnqc-xri-weyithn. For 1 week for headache and back pain. Continued pantoprazole 40 mg tablet,delayed release (DR/EC) 40 mg PO DAILY aspirin [Adult Low Dose Aspirin] 81 mg tablet,delayed release (DR/EC) 81 mg PO DAILY clopidogrel 75 mg Tablet 75 mg PO DAILY Qty: 30 2RF citalopram 10 mg tablet 10 mg PO DAILY naproxen 250 mg tablet 250 mg PO BID gabapentin 100 mg capsule 100 mg PO DAILY prednisone 10 mg tablet See Taper PO BID 2 Days Qty: 0 0RF Taper: Prednisone Taper 30 mg WITH BREAKFAST for 2 Days 20 mg WITH BREAKFAST for 2 Days 10 mg WITH BREAKFAST for 2 Days Patient Comments: pt took 2 days of the taper prior to admission Rx Instructions: She is on 10 mg daily for today and tomorrow and then will complete Referrals / Follow Up: North Cuellar Chi, MD [Primary Care Provider] - Within 2 Weeks Disposition Disposition (needs filled in before D/C Order can be placed): Home Health Service 08/28/24 1036 Adis Walker MD CC: Dr. Augie Horn DO; Dr. North Cuellar MD Signed Normal [facility] Glucose measurement at bedsi deOrdered By: Adis Walker on 08-28-2024 Bedside Glucose (Misc Panel) 120 mg/dL High 74-106 [facility] Comment on above: MANAGEMENT OF PATIEN T CARE PER NURSING PROTOCOL Hemoglobin A1con 08-28-2024 HbA1c (Bld) [Mass fraction] 10.5 % High 3.8-5.6 [facility] Comment on above: Result Comment: Norm al < 5.7 % Prediabetic 5.7 - 6.4 % Diabetic >or= 6.5 % Please note range changes. Performed By: #### L 506.1000, L500.4050, L501.9520, L100.0100, L500.4100 #### [facility] [address] [place], [place], [id number] Hemoglobin A1c percentageOrd ered By: Adis Walker on 08-28-2024 HbA1c (Bld) [Mass fraction] 10.5 % High 3.8-5.6 [facility] Comment on above: Normal < 5.7 % Predi abetic 5.7 - 6.4 % Diabetic >or= 6.5 % Please note range changes. Magnesiumon 08-28-2024 Magnesium [Mass/Vol] 2.7 mg/dL High 1.6-2.6 [facility] Comment on above: Performed By: #### L 506.1000, L500.4050, L501.9520, L100.0100, L500.4100 #### [facility] [address] [place], [place], [address] Magnesium measurementOrdered By: Augie Holloway on 08-28-2024 Magnesium [Mass/Vol] 2.7 mg/dL High 1.6-2.6 [facility] Phosphoruson 08-28-2024 Phosphate [Mass/Vol] 4.4 mg/dL Normal 2.5-4.9 [facility] Comment on above: Performed By: #### L 506.1000, L500.4050, L501.9520, L100.0100, L500.4100 #### [facility] [address] [place], [address] Phosphorus measurementOrdere d By: Augie Holloway on 08-28-2024 Phosphorus Level 4.4 mg/dL 2.5-4.9 [facility] Urine Cultureon 08-28-2024 URC Below infection leve l. Mixed Gram Positive Organisms Golden Eagle Count 1000-10,000 MIXC Mixed contaminants. Submit a new specimen if indicated. Normal [facility] Comment on above: Performed By: #### L 506.1000, L500.4050, L501.9520, L100.0100, L500.4100 #### [facility] [address] [place], [address] 12 Lead EKGon 08-27-2024 12 Lead EKG [facility] [address] [place] [address] 12 Lead EKG 08/27/24 0519 MR#: [id number] Acct: [id number] Name: REYES PONCE Rep #: [id number] : 1945 79 From: Jose Roberto Rodriguez MD Attending Dr: Dr. Adis Walker MD Status: ADM IN Ordering Dr: Augie Horn DO Date: 08/27/24 Location: [facility] Sex: F C Admitted: 08/26/24 Test Reason : AM EKG Blood Pressure : */* mmHG Vent. Rate : 77 BPM Atrial Rate : 77 BPM P-R Int : 186 ms QRS Dur : 82 ms QT Int : 386 ms P-R-T Axes : 43 -20 18 degrees QTcB Int : 436 ms Normal sinus rhythm Normal ECG When compared with ECG of 26-Aug-2024 17:22, MANUAL COMPARISON REQUIRED DATA IS UNCONFIRMED Confirmed by Jose Roberto Rodriguez ([id number]), makeup editor ELIJAH SULLIVAN ([id number]) on 08/27/2024 1:39:24 PM Referred By: Confirmed By: Jose Roberto Rodriguez 08/27/24 1339 Date Jose Roberto Rodriguez MD CC: Dr. Augie Horn DO; Dr. Adis Walker MD; Dr. Norht Cuellar MD Signed Normal [facility] Absolute neutrophil countOrd ered By: Augie Mondragonenzo on 08-27-2024 Neutrophils (Bld) [#/Vol] 9.9 10*3/uL High 2.0-7.7 [facility] Albumin to globulin ratioOrd ered By: Augie Holloway on 08-27-2024 Albumin/Globulin [Mass ratio] 1.2 {ratio} 0.9-2.4 [facility] Basophil percentageOrdered B y: Augie Holloway on 08-27-2024 Basophils/100 WBC (Bld) 0.1 % 0-1 [facility] Bedside Glucoseon 08-27-2024 FINGERSTICK GLU 168 mg/dL High 74-106 [facility] Comment on above: Result Comment: ZAYNAB GEMENT OF PATIENT CARE PER NURSING PROTOCOL Performed By: #### L 506.1000, L500.4050, L501.9520, L100.0100, L500.4100 #### [facility] [address] [place], [address] FINGERSTICK GLU 155 mg/dL High 74-106 [facility] Comment on above: Result Comment: ZAYNAB GEMENT OF PATIENT CARE PER NURSING PROTOCOL Performed By: #### L 501.080 #### [facility] [address] [place], [address] Bilirubin, totalOrdered By: Augie Holloway on 08-27-2024 Bilirubin [Mass/Vol] 0.40 mg/dL 0.20-1.00 [facility] Comment on above: For patients on eltr ombopag therapy, use of Dimension [place] TBIL is not recommended. Blood urea nitrogen (BUN)/cr eatinine ratioOrdered By: Augie Holloway on 08-27-2024 Urea nitrogen/Creatinine [Mass ratio] 26.4 mg/mg High 10-20 [facility] CBC W/Diff, Automatedon 12-0 Absolute Lymph 0.55 X10 3/uL Low 0.83-4.51 [facility] Comment on above: Performed By: #### L 501.080 #### [facility] [address] [place], [address] Absolute Neut 9.9 X10 3/uL High 2.0-7.7 [facility] Comment on above: Performed By: #### L 501.080 #### [facility] [address] [place], [address] Basophils/100 WBC (Bld) 0.1 % Normal 0-1 [facility] Comment on above: Performed By: #### L 501.080 #### [facility] [address] [place], [address] Eosinophils/100 WBC (Bld) 0.0 % Normal 0-5 [facility] Comment on above: Performed By: #### L 501.080 #### [facility] [address] [place], [address] Erythrocyte distribution width (RBC) [Ratio] 13.2 % Normal 11.6-14.6 [facility] Comment on above: Performed By: #### L 501.080 #### [facility] [address] [place], [address] Hematocrit (Bld) [Volume fraction] 36.5 % Low 37-47 [facility] Comment on above: Performed By: #### L 501.080 #### [facility] [address] [place], [address] Hemoglobin (Bld) [Mass/Vol] 12.0 g/dL Normal 12.0-15. 0 [facility] Comment on above: Performed By: #### L 501.080 #### [facility] [address] [place], [address] IG% 0.900 Normal 0.0-0.9 [facility] Comment on above: Result Comment: IG% - Immature Granulocytes (promyelocytes, myelocytes and metamyelocytes) > 1% indicates that a LEFT SHIFT is Present. Performed By: #### L 501.080 #### [facility] [address] [place], [address] Lymphocytes/100 WBC (Bld) 5.0 % Low 19-41 [facility] Comment on above: Performed By: #### L 501.080 #### [facility] [address] [place], [address] MCH (RBC) [Entitic mass] 31.2 pg Normal 27.0-32.0 [facility] Comment on above: Performed By: #### L 501.080 #### [facility] [address] [place], [address] MCHC (RBC) [Mass/Vol] 32.9 g/dL Normal 32-36 [facility] Comment on above: Performed By: #### L 501.080 #### [facility] [address] [place], [address] MCV (RBC) [Entitic vol] 94.8 fL Normal 81-99 [facility] Comment on above: Performed By: #### L 501.080 #### [facility] [address] [place], [address] Monocytes/100 WBC (Bld) 3.7 % Normal 0-10 [facility] Comment on above: Performed By: #### L 501.080 #### [facility] [address] [place], [address] Neutrophils/100 WBC (Bld) 90.3 % High 47-70 [facility] Comment on above: Performed By: #### L 501.080 #### [facility] [address] [place], [address] Nucleated RBC (Bld) [#/Vol] 0 10*3/uL Normal 0-5 [facility] Comment on above: Performed By: #### L 501.080 #### [facility] [address] [place], [address] Platelet mean volume (Bld) [Entitic vol] 10.8 fL Normal 6.2-12.0 [facility] Comment on above: Performed By: #### L 501.080 #### [facility] [address] [place], [address] Platelets (Bld) [#/Vol] 172 10*3/uL Normal 150-450 [facility] Comment on above: Performed By: #### L 501.080 #### [facility] [address] [place], [address] RBC (Bld) [#/Vol] 3.85 10*6/uL Low 4.2-5.4 [facility] Comment on above: Performed By: #### L 501.080 #### [facility] [address] [place], [address] RDW SD 45.7 fl High 35.1-43.9 [facility] Comment on above: Performed By: #### L 501.080 #### [facility] [address] [place], [address] WBC (Bld) [#/Vol] 11.0 10*3/uL Normal 4.4-11.0 [facility] Comment on above: Performed By: #### L 501.080 #### [facility] [address] [place], [address] Carbon dioxide measurementOr dered By: Augie Holloway on 08-27-2024 CO2 [Moles/Vol] 26.0 mmol/L 21.0-32.0 [facility] Chloride measurementOrdered By: Augie Holloway on 08-27-2024 Chloride [Moles/Vol] 107 mmol/L 98-107 [facility] Comprehensive Metabolic Prof ilon 08-27-2024 Albumin [Mass/Vol] 3.4 g/dL Normal 3.2-5.0 [facility] Comment on above: Performed By: #### L 501.080 #### [facility] [address] [place], [address] Albumin/Globulin [Mass ratio] 1.2 {ratio} Normal 0.9-2.4 [facility] Comment on above: Performed By: #### L 501.080 #### [facility] [address] [place], [address] ALK P 100 U/L Normal 45-117 [facility] Comment on above: Performed By: #### L 501.080 #### [facility] [address] [place], [address] ALT [Catalytic activity/Vol] 32 U/L Normal 13-56 [facility] Comment on above: Performed By: #### L 501.080 #### [facility] [address] [place], [address] AST [Catalytic activity/Vol] 31 U/L Normal 15-37 [facility] Comment on above: Performed By: #### L 501.080 #### [facility] [address] [place], [address] Bilirubin [Mass/Vol] 0.40 mg/dL Normal 0.20-1.00 [facility] Comment on above: Result Comment: For patients on eltrombopag therapy, use of Dimension [place] TBIL is not recommended. Performed By: #### L 501.080 #### [facility] [address] [place], [address] BUN/CRE 26.4 RATIO High 10-20 [facility] Comment on above: Performed By: #### L 501.080 #### [facility] [address] [place], [address] CA,Total 8.8 mg/dL Normal 8.5-10.1 [facility] Comment on above: Performed By: #### L 501.080 #### [facility] [address] [place], [address] Chloride [Moles/Vol] 107 mmol/L Normal 98-107 [facility] Comment on above: Performed By: #### L 501.080 #### [facility] [address] [place], [address] CO2 [Moles/Vol] 26.0 mmol/L Normal 21.0-32.0 [facility] Comment on above: Performed By: #### L 501.080 #### [facility] [address] [place], [address] Creatinine [Mass/Vol] 0.83 mg/dL Normal 0.55-1.02 [facility] Comment on above: Result Comment: The validity of the calculated GFR GFRAA in patients over 70 years has not been determined. Clinical correlation is essential. Performed By: #### L 501.080 #### [facility] [address] [place], [address] ECRCL 47.70 ml/min Normal [facility] Comment on above: Performed By: #### L 501.080 #### [facility] [address] [place], [address] EST GFR - AA 85 mL/min Normal >60 [facility] Comment on above: Result Comment: Afri can [place] GFR Calc Performed By: #### L 501.080 #### [facility] [address] [place], [address] GAP 6 Normal 5-15 [facility] Comment on above: Performed By: #### L 501.080 #### [facility] [address] [place], [address] GFR/1.73 sq M.predicted among non-blacks MDRD (S/P/Bld) [Vol rate/Area] 70 mL/min/{1.73_m2} Normal >60 [facility] Comment on above: Result Comment: Non- GFR Calc Performed By: #### L 501.080 #### [facility] [address] [place], [address] Globulin (S) [Mass/Vol] 2.9 g/dL Normal 2.2-4.2 [facility] Comment on above: Performed By: #### L 501.080 #### [facility] [address] [place], [address] Glucose [Mass/Vol] 193 mg/dL High 74-106 [facility] Comment on above: Result Comment: Fast ing Glucose result greater than or equal to 126 mg/dL suggests DIABETES MELLITUS per A.D.A. criteria. Performed By: #### L 501.080 #### [facility] [address] [place], [address] Potassium [Moles/Vol] 3.9 mmol/L Normal 3.5-5.1 [facility] Comment on above: Performed By: #### L 501.080 #### [facility] [address] [place], [address] Sodium [Moles/Vol] 139 mmol/L Normal 136-145 [facility] Comment on above: Performed By: #### L 501.080 #### [facility] [address] [place], [address] T PROT 6.3 g/dL Low 6.4-8.2 [facility] Comment on above: Performed By: #### L 501.080 #### [facility] [address] [place], [address] Urea nitrogen [Mass/Vol] 22 mg/dL High 7-18 [facility] Comment on above: Performed By: #### L 501.080 #### [facility] [address] [place], [address] Direct serum free thyroxine (FT4) measurementOrdered By: Augie Holloway on 08-27-2024 Free T4 [Mass/Vol] 1.07 ng/dL 0.76-1.46 [facility] Eosinophil percentageOrdered By: Augie Holloway on 08-27-2024 Eosinophils/100 WBC (Bld) 0.0 % 0-5 [facility] Erythrocyte distribution wid th ratioOrdered By: Augie Holloway on 08-27-2024 Erythrocyte distribution width (RBC) [Ratio] 13.2 % 11.6-14.6 [facility] Erythrocyte distribution wid th standard deviationOrdered By: Augie Holloway on 08-27-2024 Erythrocyte distribution width (RBC) [Entitic vol] 45.7 fL High 35.1-43.9 [facility] Estimated glomerular filtrat ion rate (GFR) AmericanOrdered By: Augie Holloway on 08-27-2024 Estimated GFR (MDRD) Amer 85 mL/min >60 [facility] Comment on above: GFR Calc Estimation of creatinine nena aranceOrdered By: Augie Holloway on 08-27-2024 Estimated Creatinine Clearance Calc 47.70 ml/min [facility] Free T3on 08-27-2024 Free T3 [Mass/Vol] 1.4 pg/mL Low 2.18-3.98 [facility] Comment on above: Performed By: #### L 506.1000, L500.4050, L501.9520, L100.0100, L500.4100 #### [facility] [address] [place], [place], [id number] Free A0Hpjyrkk By: Augie jackson on 08-27-2024 Free Triiodothyronine (T3) pg/dL 1.4 pg/mL Low 2.18-3.98 [facility] Glomerular filtration rate ( GFR) estimationOrdered By: Augie Holloway on 08-27-2024 Estimated GFR (MDRD) Non-Af Amer 70 mL/min >60 [facility] Comment on above: Non- GFR Calc Glucose measurementOrdered B y: Auige Holloway on 08-27-2024 Glucose [Mass/Vol] 193 mg/dL High 74-106 [facility] Comment on above: Fasting Glucose resu lt greater than or equal to 126 mg/dL suggests DIABETES MELLITUS per A.D.A. criteria. Hematocrit Auto (Bld) [Volum e fraction]Ordered By: Augie Holloway on 08-27-2024 Hematocrit (Bld) [Volume fraction] 36.5 % Low 37-47 [facility] Hemoglobin measurementOrdere d By: Augie Holloway on 08-27-2024 Hemoglobin (Bld) [Mass/Vol] 12.0 g/dL 12.0-15. 0 [facility] High density lipoprotein (HD L) measurementOrdered By: Augie Holloway on 08-27-2024 Cholesterol in HDL [Mass/Vol] 67 mg/dL >40 [facility] Comment on above: The drugs N-Acetylcy steine and Metamizole may falsely depress this assay. Reference Range HDL <40 mg/dL Low HDL Cholesterol HDL >or= 60 mg/dL High HDL Cholesterol Immature granulocytes/100 WB C Auto (Bld)Ordered By: Augie Holloway on 08-27-2024 Immature granulocytes/100 WBC (Bld) 0.900 % 0.0-0.9 [facility] Comment on above: IG% - Immature Granu locytes (promyelocytes, myelocytes and metamyelocytes) > 1% indicates that a LEFT SHIFT is Present. Laboratory - Chemistry and C hemistry - challengeOrdered By: Augie Holloway on 08-27-2024 AST [Catalytic activity/Vol] 31 U/L 15-37 [facility] Lipid Profileon 08-27-2024 Cholesterol [Mass/Vol] 228 mg/dL High 200 [facility] Comment on above: Result Comment: <200 mg/dL Desirable 200-240 mg/dL Borderline >240 mg/dL High Risk Performed By: #### L 501.080 #### [facility] [place], [address] Cholesterol in HDL [Mass/Vol] 67 mg/dL Normal [facility] Comment on above: Result Comment: The drugs N-Acetylcysteine and Metamizole may falsely depress this assay. Reference Range HDL <40 mg/dL Low HDL Cholesterol HDL >or= 60 mg/dL High HDL Cholesterol Performed By: #### L 501.080 #### [facility] [address] [place], [address] Cholesterol in LDL [Mass/Vol] 140 mg/dL High 0-130 [facility] Comment on above: Performed By: #### L 501.080 #### [facility] [address] [place], [address] Cholesterol in VLDL [Mass/Vol] 21 mg/dL Normal 5-40 [facility] Comment on above: Performed By: #### L 501.080 #### [facility] [address] [place], [address] Triglyceride [Mass/Vol] 107 mg/dL Normal [facility] Comment on above: Result Comment: The drugs N-Acetylcysteine and Metamizole may falsely depress this assay. Serum Triglycerides Reference Interval Normal <150 mg/dL Borderline high 150 - 199 mg/dL High 200 - 499 mg/dL Very High > or = 500 mg/dL Performed By: #### L 501.080 #### [facility] [address] [place], [address] Low density lipoprotein (LDL ) cholesterol measurementOrdered By: Augie Holloway on 08-27-2024 Cholesterol in LDL [Mass/Vol] 140 mg/dL High 0-130 [facility] Lymphocytes Auto (Unsp spec) [#/Vol]Ordered By: Augie Holloway on 08-27-2024 Lymphocytes (Bld) [#/Vol] 0.55 10*3/uL Low 0.83-4.5 1 [facility] Lymphocytes/100 WBC Auto (Un sp spec)Ordered By: Augie Holloway on 08-27-2024 Lymphocytes/100 WBC (Bld) 5.0 % Low 19-41 [facility] MCV (mean corpuscular volume ) determinationOrdered By: Augie Holloway on 08-27-2024 MCV (RBC) [Entitic vol] 94.8 fL 81-99 [facility] Magnesiumon 08-27-2024 Magnesium [Mass/Vol] 2.3 mg/dL Normal 1.6-2.6 [facility] Comment on above: Performed By: #### L 501.080 #### [facility] [address] [place], [place], [id number] Mean corpuscular hemoglobin (MCH) determinationOrdered By: Augie Holloway on 08-27-2024 MCH (RBC) [Entitic mass] 31.2 pg 27.0-32.0 [facility] Mean corpuscular hemoglobin concentration (MCHC) determinationOrdered By: Augie Holloway on 08-27-2024 MCHC (RBC) [Mass/Vol] 32.9 g/dL 32-36 [facility] Comment on above: Delta: 35.1 on 08/26-0 Mean platelet volume determi nationOrdered By: Augie Holloway on 08-27-2024 Platelet mean volume (Bld) [Entitic vol] 10.8 fL 6.2-12.0 [facility] Monocyte percentageOrdered B y: Augie Holloway on 08-27-2024 Monocytes/100 WBC (Bld) 3.7 % 0-10 [facility] Neutrophil percentageOrdered By: Augie Holloway on 08-27-2024 Neutrophils/100 WBC (Bld) 90.3 % High 47-70 [facility] Nucleated red blood cell per centageOrdered By: Augie Holloway on 08-27-2024 Nucleated RBC/100 WBC (Bld) [Ratio] 0 % 0-5 [facility] Phosphoruson 08-27-2024 Phosphate [Mass/Vol] 2.6 mg/dL Normal 2.5-4.9 [facility] Comment on above: Performed By: #### L 501.080 #### [facility] [address] [place], [place], [id number] Platelet countOrdered By: Carl Holloway on 08-27-2024 Platelets (Bld) [#/Vol] 172 10*3/uL 150-450 [facility] Potassium measurementOrdered By: Augie Holloway on 08-27-2024 Potassium [Moles/Vol] 3.9 mmol/L 3.5-5.1 [facility] RBC Auto (Bld) [#/Vol]Ordere d By: Augie Holloway on 08-27-2024 RBC (Bld) [#/Vol] 3.85 10*6/uL Low 4.2-5.4 [facility] Serum anion gap measurementO rdered By: Augie Holloway on 08-27-2024 Anion gap [Moles/Vol] 6 mmol/L 5-15 [facility] Serum globulin measurementOr dered By: Augie Holloway on 08-27-2024 Globulin (S) [Mass/Vol] 2.9 g/dL 2.2-4.2 [facility] Serum or plasma alanine zavala otransferase (ALT) measurementOrdered By: Augie Holloway on 08-27-2024 ALT [Catalytic activity/Vol] 32 U/L 13-56 [facility] Serum or plasma albumin shamar urement (mass/volume)Ordered By: Augie Holloway on 08-27-2024 Albumin [Mass/Vol] 3.4 g/dL 3.2-5.0 [facility] Serum or plasma alkaline emma sphatase measurementOrdered By: Augie Holloway on 08-27-2024 ALP [Catalytic activity/Vol] 100 U/L 45-117 [facility] Serum or plasma calcium shamar urement (mass/volume)Ordered By: Augie Holloway on 08-27-2024 Calcium [Mass/Vol] 8.8 mg/dL 8.5-10.1 [facility] Serum or plasma cholesterol measurement (mass/volume)Ordered By: Augie Holloway on 08-27-2024 Cholesterol [Mass/Vol] 228 mg/dL High <200 [facility] Comment on above: <200 mg/dL Desirable 200-240 mg/dL Borderline >240 mg/dL High Risk Serum or plasma creatinine m easurement (mass/volume)Ordered By: Augie Holloway on 08-27-2024 Creatinine [Mass/Vol] 0.83 mg/dL 0.55-1.02 [facility] Comment on above: The validity of the calculated GFR & GFRAA in patients over 70 years has not been determined. Clinical correlation is essential. Serum or plasma urea nitroge n measurement (mass/volume)Ordered By: Augie Holloway on 08-27-2024 Urea nitrogen [Mass/Vol] 22 mg/dL High 7-18 [facility] Sodium levelOrdered By: Pb Holloway on 08-27-2024 Sodium [Moles/Vol] 139 mmol/L 136-145 [facility] Stress Reporton 08-27-2024 Stress Report [facility] [address] [place] [address] MR#: [id number] Acct: [id number] Name: REYES PONCE Rep #: [id number] : 1945 79 From: Heath Heck MD Primary Care: Dr. North Cuellar MD Status: ADM IN Referring Dr: Sex: F C Stress Test Report Pharmacologic myocardial perfusion stress test. 79-year-old lady with a history of chest pain Resting EKG demonstrates sinus rhythm with a rate of 82 bpm. Resting blood pressure is 138/88 mmHg. 0.4 mg of regadenoson was infused per usual protocol followed by rapid intravenous saline flush injection. Continuous EKG monitoring was performed. The maximum heart rate was 88 bpm which was 62%of max impacted heart rate the maximum workload was 1 metabolic equivalent. At rest there were no ST or T wave changes noted to suggest ischemia and at peak infusion nonspecific ST changes were noted which did not meet the criteria for ischemia. No clinical angina is noted. The final blood pressure was 138/90mmHg. Myocardial perfusion protocol. 12 mCi of technetium 99m sestamibi was injected at rest. 0.4 mg of regadenoson was infused per usual protocol. At peak infusion 34.9 mCi of technetium 99m sestamibi was injected stress images we re obtained stress and rest images were reconstructed and compared in the short axis vertical long and horizontal long axis. Gated images were also obtained. Perfusion SPECT analysis: Review of the stress images demonstrate normal uptake of tracer noted in all areas of the myocardium. The resting images similar demonstrated normal uptake of tracer noted in all areas of the myocardium. No areas of reversibility are noted to suggest ischemia and no previous infarct is noted. Gated SPECT analysis: The gated ejection fraction is 66%. Conclusion: Normal pharmacologic myocardial perfusion stress test. Preserved ejection fraction. 08/27/24 1541 Date Heath Heck MD CC: Dr. Augie Horn DO; Dr. Adis Walker MD; Dr. North Cuellar MD; Dr. Neal Hunter DO Date Dictated: 08/27/241536 Date Transcribed: 08/27/241536 Advertising Designer: [place] Signed Normal [facility] T4 Free Directon 08-27-2024 T4 FREE DIRECT 1.07 ng/dL Normal 0.76-1.46 [facility] Comment on above: Performed By: #### L 506.1000, L500.4050, L501.9520, L100.0100, L500.4100 #### [facility] [address] [place], [address] Total proteinOrdered By: Nicolas Holloway on 08-27-2024 Protein [Mass/Vol] 6.3 g/dL Low 6.4-8.2 [facility] Triglycerides measurementOrd ered By: Augie Holloway on 08-27-2024 Triglyceride [Mass/Vol] 107 mg/dL <199 [facility] Comment on above: The drugs N-Acetylcy steine and Metamizole may falsely depress this assay.Serum Triglycerides Reference Interval Normal <150 mg/dL Borderline high 150 - 199 mg/dL High 200 - 499 mg/dL Very High > or = 500 mg/dL Urine Drug Screen (VISTA)on 08-27-2024 AMPHETAMINES Negative Normal <1000 ng/mL [facility] Comment on above: Performed By: #### L 506.1000, L500.4050, L501.9520, L100.0100, L500.4100 #### [facility] [address] [place], [address] BARBITIURATES Negative Normal < 200 ng/mL [facility] Comment on above: Performed By: #### L 506.1000, L500.4050, L501.9520, L100.0100, L500.4100 #### [facility] [address] [place], [address] BENZODIAZIPINE Negative Normal < 200 ng/mL [facility] Comment on above: Performed By: #### L 506.1000, L500.4050, L501.9520, L100.0100, L500.4100 #### [facility] [address] [place], [address] COCAINE Negative Normal < 300 ng/mL [facility] Comment on above: Performed By: #### L 506.1000, L500.4050, L501.9520, L100.0100, L500.4100 #### [facility] [address] [place], [address] ECSTACY Negative Normal < 500 ng/mL [facility] Comment on above: Performed By: #### L 506.1000, L500.4050, L501.9520, L100.0100, L500.4100 #### [facility] [address] [facility] [address] METHADONE Negative Normal < 300 ng/mL [facility] Comment on above: Performed By: #### L 506.1000, L500.4050, L501.9520, L100.0100, L500.4100 #### [facility] [address] [place], [address] OPIATES Negative Normal < 300 ng/mL [facility] Comment on above: Performed By: #### L 506.1000, L500.4050, L501.9520, L100.0100, L500.4100 #### [facility] [address] [place], [address] PCP Negative Normal < 25 ng/mL [facility] Comment on above: Performed By: #### L 506.1000, L500.4050, L501.9520, L100.0100, L500.4100 #### [facility] [address] [place], [address] THC Negative Normal < 50 ng/mL [facility] Comment on above: Performed By: #### L 506.1000, L500.4050, L501.9520, L100.0100, L500.4100 #### [facility] [address] [place], [address] VISTA UDS PH 6 Normal [facility] Comment on above: Performed By: #### L 506.1000, L500.4050, L501.9520, L100.0100, L500.4100 #### [facility] [address] [place], [address] Very low density lipoprotein (VLDL) cholesterol measurementOrdered By: Augie Holloway on 08-27-2024 VLDL Cholesterol 21 mg/dL 5-40 [facility] Vitamin B12on 08-27-2024 Cobalamin (Vitamin B12) [Mass/Vol] 469 pg/mL Normal 211-911 [facility] Comment on above: Performed By: #### L 506.1000, L500.4050, L501.9520, L100.0100, L500.4100 #### [facility] [address] [place], [address] White blood cell (WBC) count Ordered By: Augie Holloway on 08-27-2024 WBC (Bld) [#/Vol] 11.0 10*3/uL 4.4-11.0 [facility] 12 Lead EKGon 08-26-2024 12 Lead EKG [facility] Cardi[facility] Services [address] [place] [address] 12 Lead EKG 08/26/24 1722 MR#: [id number] Acct: [id number] Name: REYES PONCE Rep #: [id number] : 1945 79 From: Jose Roberto Rodriguez MD Attending Dr: Dr. Adis Walker MD Status: ADM IN Ordering Dr: Neal Hunter DO Date: 08/26/24 Location: [facility] Sex: F C Admitted: 08/26/24 Test Reason : Blood Pressure : */* mmHG Vent. Rate : 86 BPM Atrial Rate : 86 BPM P-R Int : 190 ms QRS Dur : 82 ms QT Int : 374 ms P-R-T Axes : 46 -26 39 degrees QTcB Int : 447 ms Normal sinus rhythm Normal ECG Confirmed by Jose Roberto Rodriguez ([id number]), makeup editor ELIJAH SULLIVAN ([id number]) on 08/27/2024 1:46:16 PM Referred By: Confirmed By: Jose Roberto Rodriguez 08/27/24 1346 Date Jose Roberto Rodriguez MD CC: Dr. Adis Walker MD; Dr. North Cuellar MD; Dr. Neal Hunter DO Signed Normal [facility] Alcohol, Blood (Medical)-Ser umon 08-26-2024 SERUM ETOH < 3.0 Normal [facility] Comment on above: Result Comment: The serum:whole blood ethanol ratio is approximately 1.14 and varies slightly with hematocrit. Medical Alcohol reference interval and critical value in non-tolerant individuals; 50 - 100 Impairment 100 Intoxication 100 - 250 Severe Poisoning 250 - 400 Deep/possible fatal coma Performed By: #### L 506.1000, L500.4050, L501.9520, L100.0100, L500.4100 #### [facility] [place], [address] BNP (brain natriuretic pepti de measurement)Ordered By: Neal Hunter on 08-26-2024 Natriuretic peptide B (Bld) [Mass/Vol] 110.8 pg/mL High 0-100 [facility] BNP,B-Type NATRIURETIC PEPTI Pepper 08-26-2024 Natriuretic peptide B (Bld) [Mass/Vol] 110.8 pg/mL High 0-100 [facility] Comment on above: Performed By: #### L 503.6620 #### [facility] [address] [place], [address] Basic Metabolic Profile (BMP )on 08-26-2024 BUN/CRE 24.2 RATIO High 10-20 [facility] Comment on above: Order Comment: 'TROP ' Serial specimen #1, #2 or #3: 1 Performed By: #### L 501.080 #### [facility] [address] [place], [address] CA,Total 9.1 mg/dL Normal 8.5-10.1 [facility] Comment on above: Order Comment: 'TROP ' Serial specimen #1, #2 or #3: 1 Performed By: #### L 501.080 #### [facility] [address] [place], [address] Chloride [Moles/Vol] 99 mmol/L Normal 98-107 [facility] Comment on above: Order Comment: 'TROP ' Serial specimen #1, #2 or #3: 1 Performed By: #### L 501.080 #### [facility] [address] [place], [address] CO2 [Moles/Vol] 27.0 mmol/L Normal 21.0-32.0 [facility] Comment on above: Order Comment: 'TROP ' Serial specimen #1, #2 or #3: 1 Performed By: #### L 501.080 #### [facility] [address] [place], [address] Creatinine [Mass/Vol] 1.20 mg/dL High 0.55-1.02 [facility] Comment on above: Order Comment: 'TROP ' Serial specimen #1, #2 or #3: 1 Result Comment: The validity of the calculated GFR GFRAA in patients over 70 years has not been determined. Clinical correlation is essential. Performed By: #### L 501.080 #### [facility] [address] [place], [address] ECRCL 34.13 ml/min Normal [facility] Comment on above: Order Comment: 'TROP ' Serial specimen #1, #2 or #3: 1 Performed By: #### L 501.080 #### [facility] [address] [place], [address] EST GFR - AA 56 mL/min Low >60 [facility] Comment on above: Order Comment: 'TROP ' Serial specimen #1, #2 or #3: 1 Result Comment: Afri can [place] GFR Calc Performed By: #### L 501.080 #### [facility] [address] [place], [address] GAP 8 Normal 5-15 [facility] Comment on above: Order Comment: 'TROP ' Serial specimen #1, #2 or #3: 1 Performed By: #### L 501.080 #### [facility] [address] [place], [address] GFR/1.73 sq M.predicted among non-blacks MDRD (S/P/Bld) [Vol rate/Area] 46 mL/min/{1.73_m2} Low >60 [facility] Comment on above: Order Comment: 'TROP ' Serial specimen #1, #2 or #3: 1 Result Comment: Non- GFR Calc Performed By: #### L 501.080 #### [facility] [address] [place], [address] Glucose [Mass/Vol] 250 mg/dL High 74-106 [facility] Comment on above: Order Comment: 'TROP ' Serial specimen #1, #2 or #3: 1 Result Comment: Gluc ose result greater than or equal to 200 mg/dL suggests DIABETES MELLITUS per A.D.A. criteria. Performed By: #### L 501.080 #### [facility] [address] [place], [address] Potassium [Moles/Vol] 3.1 mmol/L Low 3.5-5.1 [facility] Comment on above: Order Comment: 'TROP ' Serial specimen #1, #2 or #3: 1 Performed By: #### L 501.080 #### [facility] [address] [place], [address] Sodium [Moles/Vol] 134 mmol/L Low 136-145 [facility] Comment on above: Order Comment: 'TROP ' Serial specimen #1, #2 or #3: 1 Performed By: #### L 501.080 #### [facility] [address] [place], [address] Urea nitrogen [Mass/Vol] 29 mg/dL High 7-18 [facility] Comment on above: Order Comment: 'TROP ' Serial specimen #1, #2 or #3: 1 Performed By: #### L 501.080 #### [facility] [address] [place], [address] Bilirubin Test strip Ql (U)O rdered By: Neal Hunter on 08-26-2024 Bilirubin Ql (U) Negative Negative [facility] Bilirubin directOrdered By: Neal Hunter on 08-26-2024 Bilirubin.direct [Mass/Vol] 0.14 mg/dL 0.00-0.3 0 [facility] Brain/Head without Contrasto n 08-26-2024 Brain/Head without Contrast [facility] Imaging Services [address] [place] [address] Brain/Head without Contrast MR#: [id number] Acct: [id number] Name: REYES PONCE Rep #: [id number] : 1945 F 79 From: Gaurav starr MD PCP: Dr. North Cuellar MD Status: REG ER Study: Brain/Head without Contrast Date of Exam: 02/12 Exam# [id number] Ordering Dr: Neal Hunter DO [id number] STUDY: CT BRAIN WITHOUT CONTRAST REASON FOR EXAM: Female, 79 years old. Trauma RADIATION DOSAGE (If Supplied By Facility): CTDIvol = ( 44.99 ) mGy, DLP = ( 779.24 ) mGycm TECHNIQUE: Transaxial CT imaging of the brain was performed without administration of intravenous contrast material. Individualized dose optimization techniques were used for this CT. COMPARISON: 08/25/2024 FINDINGS: No change since yesterday''s exam. No acute intracranial abnormality. No blood. Again noted are involutional changes including white matter disease and numerous lacunar infarcts of the basal ganglia and deep white matter tracts. CT/Brain/Head without Contrast IMPRESSION: No change since yesterday. No acute abnormality. Electronically Signed: Gaurav Tian MD at 19:11 EST , CC: Dr. North Cuellar MD; Dr. Neal Hunter DO Advertising Designer: Signed Normal [facility] CBC W/Diff, Automatedon 12-0 -2023 Absolute Lymph 0.58 X10 3/uL Low 0.83-4.51 [facility] Comment on above: Performed By: #### L 501.080 #### [facility] [address] [place], [address] Absolute Neut 12.8 X10 3/uL High 2.0-7.7 [facility] Comment on above: Performed By: #### L 501.080 #### [facility] [address] [place], [address] Basophils/100 WBC (Bld) 0.1 % Normal 0-1 [facility] Comment on above: Performed By: #### L 501.080 #### [facility] [address] [place], [address] Eosinophils/100 WBC (Bld) 0.1 % Normal 0-5 [facility] Comment on above: Performed By: #### L 501.080 #### [facility] [address] [place], [address] Erythrocyte distribution width (RBC) [Ratio] 13.3 % Normal 11.6-14.6 [facility] Comment on above: Performed By: #### L 501.080 #### [facility] [address] [place], [address] Hematocrit (Bld) [Volume fraction] 40.4 % Normal 37-47 [facility] Comment on above: Performed By: #### L 501.080 #### [facility] [address] [place], [address] Hemoglobin (Bld) [Mass/Vol] 14.2 g/dL Normal 12.0-15. 0 [facility] Comment on above: Performed By: #### L 501.080 #### [facility] [address] [place], [address] IG% 1.200 High 0.0-0.9 [facility] Comment on above: Result Comment: IG% - Immature Granulocytes (promyelocytes, myelocytes and metamyelocytes) > 1% indicates that a LEFT SHIFT is Present. Performed By: #### L 501.080 #### [facility] [address] [place], [address] Lymphocytes/100 WBC (Bld) 4.1 % Low 19-41 [facility] Comment on above: Performed By: #### L 501.080 #### [facility] [address] [place], [address] MCH (RBC) [Entitic mass] 33.1 pg High 27.0-32.0 [facility] Comment on above: Performed By: #### L 501.080 #### [facility] [address] [place], [address] MCHC (RBC) [Mass/Vol] 35.1 g/dL Normal 32-36 [facility] Comment on above: Performed By: #### L 501.080 #### [facility] [address] [place], [address] MCV (RBC) [Entitic vol] 94.2 fL Normal 81-99 [facility] Comment on above: Performed By: #### L 501.080 #### [facility] [address] [place], [address] Monocytes/100 WBC (Bld) 4.6 % Normal 0-10 [facility] Comment on above: Performed By: #### L 501.080 #### [facility] [address] [place], [address] Neutrophils/100 WBC (Bld) 89.9 % High 47-70 [facility] Comment on above: Performed By: #### L 501.080 #### [facility] [address] [place], [address] Nucleated RBC (Bld) [#/Vol] 0 10*3/uL Normal 0-5 [facility] Comment on above: Performed By: #### L 501.080 #### [facility] [address] [place], [address] Platelet mean volume (Bld) [Entitic vol] 11.3 fL Normal 6.2-12.0 [facility] Comment on above: Performed By: #### L 501.080 #### [facility] [address] [place], [address] Platelets (Bld) [#/Vol] 241 10*3/uL Normal 150-450 [facility] Comment on above: Performed By: #### L 501.080 #### [facility] [address] [place], [address] RBC (Bld) [#/Vol] 4.29 10*6/uL Normal 4.2-5.4 [facility] Comment on above: Performed By: #### L 501.080 #### [facility] [address] [place], [address] RDW SD 45.9 fl High 35.1-43.9 [facility] Comment on above: Performed By: #### L 501.080 #### [facility] [address] [place], [address] WBC (Bld) [#/Vol] 14.2 10*3/uL High 4.4-11.0 [facility] Comment on above: Performed By: #### L 501.080 #### [facility] [address] [place], [address] CT Chest, Abd, Pel w/Contras ton 08-26-2024 CT Chest, Abd, Pel w/Contrast [facility] Imaging Services [address] [place] [address] CT Chest, Abd, Pel w/Contrast MR#: [id number] Acct: [id number] Name: REYES PONCE Rep #: [id number] : 1945 F 79 From: Gaurav starr MD PCP: Dr. North Cuellar MD Status: [facility] ER Study: CT Chest, Abd, Pel w/Contrast Date of Exam: Exam# [id number] Ordering Dr: Neal Hunter DO [id number] EXAM: CT CHEST, ABDOMEN AND PELVIS WITH INTRAVENOUS CONTRAST CLINICAL INDICATION: fall back pain, hypoxia -- TRAUMA ONLY: IV Contrast. wait for creatinine TECHNIQUE: Helically acquired images were obtained of the chest, abdomen and pelvis with intravenous contrast. This CT exam was performed using one or more of the following dose reduction techniques: automated exposure control, adjustment of the mA and/or kV according to patient size, and/or use of iterative reconstruction technique. CONTRAST: IV 100mL [id number] RADIATION DOSE: CTDIvol = 16.61 mGy, DLP = 1398.36 mGy-cm COMPARISON: 01/17/2022 FINDINGS: LIMITATIONS: Exam is limited by improper positioning of patient''s arms resulting in significant streak artifact. CHEST: LUNGS AND PLEURAL SPACES: Mild fibrotic changes throughout the lungs. No mass. No pleural effusion or thickening. No pneumothorax. HEART: Calcified coronary arteries. Heart size is normal. No pericardial effusion. MEDIASTINUM: Unremarkable. No mediastinal or hilar adenopathy. Esophagus is unremarkable. No hiatal hernia. THYROID: Unremarkable. No thyroid lesions. ABDOMEN: LIVER: Unremarkable. Homogeneous. No focal mass. GALLBLADDER AND BILE DUCTS: Cholecystectomy. No intra- or extrahepatic biliary ductal dilation. PANCREAS: Unremarkable. No focal cystic or solid mass. SPLEEN: Unremarkable. Normal size without focal cystic or solid mass. ADRENALS: Unremarkable. No nodules. KIDNEYS AND URETERS: Unremarkable. Normal renal size and position. No hydronephrosis. STOMACH AND BOWEL: Evaluation of the GI tract is limited by absence of oral contrast. Cannot exclude stomach wall thickening. No dilated loops of bowel or evidence for obstruction. Cannot exclude segmental thickening of the davis of the small or large bowel. Cannot exclude enteritis or colitis. Moderate diffuse fecal retention. Diverticulosis without definite diverticulitis. PELVIS: APPENDIX: Question previous appendectomy. BLADDER: Unremarkable. REPRODUCTIVE: Hysterectomy. CHEST, ABDOMEN and PELVIS: INTRAPERITONEAL SPACE: Unremarkable. No ascites or other fluid collection. No free air. BONES/JOINTS: Degenerative changes throughout the spine. No suspicious lytic or blastic abnormality. No fractures are seen. SOFT TISSUES: Unremarkable. No discrete abdominal or pelvic wall hernia. VASCULATURE: Heavily calcified aorta and iliac arteries. No aneurysm. LYMPH NODES: Unremarkable. No enlarged lymph nodes. CT/CT Chest, Abd, Pel w/Contrast IMPRESSION: No acute injuries are seen. No other definite acute or significant abnormality seen. Electronically Signed: Gaurav Tian MD at 19:26 EST , CC: Dr. North Cuellar MD; Dr. Neal Hunter DO Advertising Designer: Signed Normal [facility] Carotid Duplex Ultrasoundon 08-26-2024 Carotid Duplex Ultrasound [facility] [address] [place] [address] Carotid Duplex Ultrasound 08/27/24 0942 MR#: [id number] Acct: [id number] Name: REYES PONCE Rep #: [id number] : 1945 79 From: Gilberto Noe MD Attending Dr: Dr. Adis Walker MD Status: ADM IN Ordering Dr: Augie Horn DO Date: 08/26/24 Location: [facility] Sex: F C Admitted: 08/26/24 Reason For Study: Syncope Rt. Velocities/BP Lt. Velocities/BP Prox CCA 35.1/9.9 cm/sec. Prox CCA 58.1/13.9 cm/sec. Mid CCA 30.0/9.4 cm/sec. Mid CCA 46.7/14.7 cm/sec. Dist CCA 30.0/10.9 cm/sec. Dist CCA 40.5/14.2 cm/sec. Prox ICA 31.5/11.4 cm/sec. Prox ICA 36.2/10.6 cm/sec. Mid ICA 30.8/12.9 cm/sec. Mid ICA 38.4/12.7 cm/sec. Dist ICA 37.1/12.9 cm/sec. Dist ICA 40.5/17.0 cm/sec. Rt. ICA/CCA = 1.0. Lt. ICA/CCA = 0.9. Prox ECA 59.1/9.1 cm/sec. Prox ECA 30.0/6.1 cm/sec. Rt. Vert. 35.3/12.5 cm/sec. Lt. Vert. 31.3/10.1 cm/sec. Right Extracranial There is intimal thickening but no significant atherosclerotic plaque noted in the right common carotid artery. There is heterogeneous, irregular atherosclerotic plaque noted in the right internal carotid artery. There is heterogeneous, irregular atherosclerotic plaque noted in the right external carotid artery. Antegrade flow is noted in the right vertebral artery. Left Extracranial There is intimal thickening but no significant atherosclerotic plaque noted in the left common carotid artery. There is heterogeneous, irregular atherosclerotic plaque noted in the left internal carotid artery. There is heterogeneous, irregular atherosclerotic plaque noted in the left external carotid artery. Antegrade flow is noted in the left vertebral artery. Procedure Carotid Duplex [id number]. This is a Carotid Duplex examination using B-mode, color flow and specral Doppler. The exam was diagnostic. Exam performed in department. VL/Carotid Duplex Ultrasound Interpretation Summary Mild (<50%) stenosis right extracranial internal carotid. Mild (<50%) stenosis left extracranial internal carotid. Flow within the vertebral arteries is antegrade bilaterally. Ordering Physician: Augie Horn Referring Physician: North Cuellar Chi Performed By: Pipe Michelle, Seng 08/27/24 1357 Date Gilberto Noe MD CC: Dr. Augie Horn DO; Dr. Adis Walker MD; Dr. North Cuellar MD Date Dictated: 08/27/24941 Date Transcribed: 08/27/24 135 Advertising Designer: Signed Normal [facility] Echo Completeon 08-26-2024 Echo Complete [facility] [place] [address] [address] Echo Complete 08/27/24 1406 MR#: [id number] Acct: [id number] Name: REYES PONCE Rep #: [id number] : 1945 79 From: Heath Heck MD Attending Dr: Dr. Adis Walker MD Status: ADM IN Ordering Dr: Augie Horn DO Date: 08/26/24 Location: [facility] Sex: F C Admitted: 08/26/24 Version 2 Reason For Study: syncope Procedure This was a 2D Doppler, Color Flow transthoracic echocardiogram. Exam performed portable in patient room. Left Ventricle Normal LV size. Left ventricular systolic function is normal. The left ventricular ejection fraction is 65 %. Stage 1 diastolic dysfunction. No regional wall motion abnormalities noted. Right Ventricle Normal RV size. Normal systolic function. Atria Normal left atrium. Normal right atrium. Mitral Valve There is mild mitral annular calcification. Tricuspid Valve Normal tricuspid valve. Mild tricuspid valve insufficiency. Pulmonary artery systolic pressure is 40 mmHg. Aortic Valve Trisinus/trileaflet aortic valve. Mild focal aortic valve calcification. Focal calcification 1cm by 0.6 cm on left cusp. Mild (1+) aortic valve insufficiency. Pulmonic Valve Normal pulmonic valve. Great Vessels Normal aortic root. The pulmonary artery is normal size. Inferior vena cava collapse with respiration. Pericardium/Pleural No pericardial effusion. MMode/2D Measurements Calculations Ao root diam: 3.6 cm LAV(MOD-bp): 44.7 ml LVAd ap4: 22.5 cm2 LAV(MOD-bp) Indexed: 26.4 ml/m2 LVLd ap4: 8.0 cm LAV(MOD-sp2): 41.0 ml EDV(MOD-sp4): 51.0 ml LAV(MOD-sp4): 41.4 ml EDV(sp4-el): 53.4 ml LVAs ap4: 11.4 cm2 LVLs ap4: 6.6 cm ESV(MOD-sp4): 16.3 ml ESV(sp4-el): 16.8 ml EF(MOD-sp4): 68.0 % EF(sp4-el): 68.6 % SV(MOD-sp4): 34.7 ml SV(sp4-el): 36.6 ml LA A4 area: 17.2 cm2 SI(MOD-sp4): 20.5 ml/m2 Time Measurements MV dec time: 0.10 sec Doppler Measurements Calculations MV E max ok: 59.9 cm/sec Lat Peak E' Ok: 5.9 cm/sec Med Peak E' Ok: 7.6 cm/sec MV A max ok: 113.4 cm/sec E/E' lat: 10.2 E/E' med: 7.8 MV E/A: 0.53 MV V2 max: 130.0 cm/sec Ao V2 max: 162.6 cm/sec MV max P.8 mmHg MV dec slope: 576.0 cm/sec2 Ao max P.6 mmHg MV V2 mean: 70.9 cm/sec Ao V2 mean: 109.2 cm/sec MV mean P.4 mmHg Ao mean P.5 mmHg MV V2 VTI: 26.1 cm Ao V2 VTI: 34.6 cm AV (velocity ratio): 0.82 AI max ok: 430.5 cm/sec LV V1 max: 129.0 cm/sec TR max ok: 307.5 cm/sec AI max P.2 mmHg LV V1 max P.7 mmHg TR max P.8 mmHg LV V1 mean P.6 mmHg AI dec slope: 205.5 cm/sec2 LV V1 mean: 87.3 cm/sec AI P1/2t: 613.4 msec LV V1 VTI: 28.4 cm ECHO/Echo Complete Interpretation Summary Normal LV size. Left ventricular systolic function is normal. The left ventricular ejection fraction is 65 %. Focal calcification 1cm by 0.6 cm on left cusp aortic valve Stage 1 diastolic dysfunction. Mild (1+) aortic valve insufficiency. Ordering Physician: Augie Horn Referring Physician: North Cuellar Chi Performed By: Helen Carbone RCS 08/27/24 1502 Date Heath Heck MD CC: Dr. Augie Horn DO; Dr. Adis Walker MD; Dr. North Cuellar MD Date Dictated: 08/27/24 1406 Date Transcribed: 08/27/24 1501 Advertising Designer: Signed Normal [facility] Emergency Department Summary on 08-26-2024 Emergency Department Summary [facility] Medical Records Department [address] [place] [address] Emergency Department Summary 08/26/24 MR#: [id number] Acct: [id number] Name: REYES PONCE Rep #: [id number] : 1945 79 From: Neal Hunter DO PCP: Dr. North Cuellar MD Status:REG ER Location: ED HPI History of Present Illness Chief Complaint: Fall Narrative Narrative: Patient is a 79-year-old female past medical history of CATHERINE, hypertension, anxiety, GERD who presents to the emergency department chief complaint of fall. Patient states that she was walking her dog outside when she slipped on ice falling backwards hitting the back of her head she states that she thinks that she may have passed out she is not recall. States that she had a fall yesterday and had a CT head done as she is on Plavix and her physician was concerned that she may have a brain bleed. She states that yesterday she was getting out of bed and had a cramp in her right leg causing her leg to give out causing her to fall. She also notes that she is having some back pain associated with this. Patient states that she is not on oxygen normally and is requiring oxygen here in the emergency department. Patient states that periodically she will have difficulty with the breathing. Patient states that she tried to take some pain medication to prevent her from coming here however she called her physician again and notified them that she fell and they advised her to come here for further evaluation management. [facility] Medical History Thoracic aortic aneurysm without rupture Breast cancer CATHERINE (obstructive sleep apnea) Essential hypertension GERD (gastroesophageal reflux disease) Anxiety Fatty liver Home Medications ???Medication ???Instructions ???Recorded ???Last Taken ???Type cholecalciferol (vitamin D3) 125 125 mcg PO DAILY vitamin 01/29/22 02/27/23 History mcg (5,000 unit) tablet citalopram 20 mg tablet 20 mg PO DAILY mental health 01/29/22 02/27/23 History aspirin 81 mg tablet,delayed 81 mg PO DAILY heart health 01/30/22 02/27/23 History release (Adult Low Dose Aspirin) pantoprazole 40 mg tablet,delayed 40 mg PO DAILY relfux 01/30/22 02/26/23 History release atorvastatin 40 mg tablet 40 mg PO QHS #30 tabs 03/01/23 Unknown Rx clopidogrel 75 mg tablet 75 mg PO DAILY #30 tabs 03/01/23 Unknown Rx metformin 500 mg tablet 500 mg PO BIDCM #60 tabs 03/01/23 Unknown Rx Allergy/AdvReac Type Severity Reaction Status Date / Time terazosin (From Hytrin) Allergy Severe Face Verified 08/26/24 16:22 swelling acetaminophen (From AdvReac Severe Nightmares Verified 08/26/24 16:22 Darvocet-N 100) propoxyphene (From AdvReac Severe Nightmares Verified 08/26/24 16:22 Darvocet-N 100) codeine AdvReac Unknown "tight Verified 08/26/24 16:22 band around head and SOB gabapentin (From Neurontin) AdvReac Unknown Mental Verified 08/26/24 16:22 status change hydrocodone (From Vicodin) AdvReac Unknown Nightmares Verified 08/26/24 16:22 zolpidem (From Ambien) AdvReac Unknown Hallucinati Verified 08/26/24 16:22 ons Family History Father Myocardial infarction CVA (cerebral vascular accident) Surgical History History of abdominal hysterectomy History of laparoscopic cholecystectomy History of appendectomy History of partial mastectomy of right breast Social History Smoking Status: Never smoker alcohol intake: never substance use type: does not use ROS ROS ED ROS Narrative constitutional: Denies any fevers, chills, lightness, dizziness Eyes: Denies changes vision double vision blurry vision Cardiovascular: Denies chest pain or palpitations Respiratory: Denies coughing wheezing shortness of breath Abdomen: Denies abdominal pain nausea vomit diarrhea : Denies any urinary symptoms Neurological: Denies any numbness, weakness, tingling Musculoskeletal: Complains of back pain as noted above Skin: Denies rashes or lesions EXAM Physical Exam Narrative Exam Narrative: General: Patient was lying in bed rest comfortably did not appear to be acute distress Head: Atraumatic, normocephalic Eyes: PERRL body, EOMI blood, no conjunctival injection noted, no nasal septal hematomas noted, no concern for basilar skull fracture Neck: Soft, supple, trachea midline Cardiovascular: Regular rate and rhythm no murmurs gallops rubs noted Respiratory: Clear to auscultation bilaterally Abdomen: Soft, nondistended, tender to palpation, bowel sounds present x 4 Musculoskeletal: Patient has some tenderness palpation over the left rib cage, all of the bony prominences palpa (more content not included)... Normal [facility] Epithelial cells.squamous LM Ql (Urine sed)Ordered By: Neal Hunter on 08-26-2024 Epithelial cells.squamous LM.HPF (Urine sed) [#/Area] 0 /[HPF] 5-10 [facility] Folates, (Folic Acid)on FOLATES 11.80 ng/mL Normal 3.1-55.4 [facility] Comment on above: Order Comment: Has Emilia atient had X-rays with Contrast this admission? YN Performed By: #### L 506.1000, L500.4050, L501.9520, L100.0100, L500.4100 #### [facility] Laboratory [address] [place], [address] Folic acid measurementOrdere d By: Augie Holloway on 08-26-2024 Folate 11.80 ng/mL 3.1-55.4 [facility] Glucose Ql (U)Ordered By: Barrett Hunter on 08-26-2024 Glucose (U) [Mass/Vol] 100 mg/dL High Normal [facility] H AND P Exam - Hospitaliston 08-26-2024 H&P Exam - Hospitalist [facility]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 L100.0100, L500.4100 #### [facility] [address] [place], [address] Basophils/100 WBC (Bld) 0.6 % Normal 0-1 [facility] Comment on above: Performed By: #### L 506.1000, L500.4050, L501.9520, L100.0100, L500.4100 #### [facility] [address] [place], [address] Eosinophils/100 WBC (Bld) 1.1 % Normal 0-5 [facility] Comment on above: Performed By: #### L 506.1000, L500.4050, L501.9520, L100.0100, L500.4100 #### [facility] [address] [place], [address] Erythrocyte distribution width (RBC) [Ratio] 13.3 % Normal 11.6-14.6 [facility] Comment on above: Performed By: #### L 506.1000, L500.4050, L501.9520, L100.0100, L500.4100 #### [facility] [address] [place], [address] Hematocrit (Bld) [Volume fraction] 39.5 % Normal 37-47 [facility] Comment on above: Performed By: #### L 506.1000, L500.4050, L501.9520, L100.0100, L500.4100 #### [facility] [address] [place], [address] Hemoglobin (Bld) [Mass/Vol] 12.9 g/dL Normal 12.0-15. 0 [facility] Comment on above: Performed By: #### L 506.1000, L500.4050, L501.9520, L100.0100, L500.4100 #### [facility] [address] [place], [address] IG% 0.300 Normal 0.0-0.9 [facility] Comment on above: Result Comment: IG% - Immature Granulocytes (promyelocytes, myelocytes and metamyelocytes) > 1% indicates that a LEFT SHIFT is Present. Performed By: #### L 506.1000, L500.4050, L501.9520, L100.0100, L500.4100 #### [facility] [address] [place], [address] Lymphocytes/100 WBC (Bld) 26.2 % Normal 19-41 [facility] Comment on above: Performed By: #### L 506.1000, L500.4050, L501.9520, L100.0100, L500.4100 #### [facility] [address] [place], [address] MCH (RBC) [Entitic mass] 30.9 pg Normal 27.0-32.0 [facility] Comment on above: Performed By: #### L 506.1000, L500.4050, L501.9520, L100.0100, L500.4100 #### [facility] [address] [place], [address] MCHC (RBC) [Mass/Vol] 32.7 g/dL Normal 32-36 [facility] Comment on above: Performed By: #### L 506.1000, L500.4050, L501.9520, L100.0100, L500.4100 #### [facility] [address] [place], [address] MCV (RBC) [Entitic vol] 94.7 fL Normal 81-99 [facility] Comment on above: Performed By: #### L 506.1000, L500.4050, L501.9520, L100.0100, L500.4100 #### [facility] [address] [place], [address] Monocytes/100 WBC (Bld) 9.2 % Normal 0-10 [facility] Comment on above: Performed By: #### L 506.1000, L500.4050, L501.9520, L100.0100, L500.4100 #### [facility] [address] [place], [address] Neutrophils/100 WBC (Bld) 62.6 % Normal 47-70 [facility] Comment on above: Performed By: #### L 506.1000, L500.4050, L501.9520, L100.0100, L500.4100 #### [facility] [address] [place], [address] Nucleated RBC (Bld) [#/Vol] 0 10*3/uL Normal 0-5 [facility] Comment on above: Performed By: #### L 506.1000, L500.4050, L501.9520, L100.0100, L500.4100 #### [facility] [address] [place], [address] Platelet mean volume (Bld) [Entitic vol] 10.6 fL Normal 6.2-12.0 [facility] Comment on above: Performed By: #### L 506.1000, L500.4050, L501.9520, L100.0100, L500.4100 #### [facility] [address] [place], [address] Platelets (Bld) [#/Vol] 208 10*3/uL Normal 150-450 [facility] Comment on above: Performed By: #### L 506.1000, L500.4050, L501.9520, L100.0100, L500.4100 #### [facility] [address] [place], [address] RBC (Bld) [#/Vol] 4.17 10*6/uL Low 4.2-5.4 [facility] Comment on above: Performed By: #### L 506.1000, L500.4050, L501.9520, L100.0100, L500.4100 #### [facility] [address] [place], [address] RDW SD 46.6 fl High 35.1-43.9 [facility] Comment on above: Performed By: #### L 506.1000, L500.4050, L501.9520, L100.0100, L500.4100 #### [facility] [address] [place], [address] WBC (Bld) [#/Vol] 6.4 10*3/uL Normal 4.4-11.0 [facility] Comment on above: Performed By: #### L 506.1000, L500.4050, L501.9520, L100.0100, L500.4100 #### [facility] [address] [place], [address] Comprehensive Metabolic Prof [facility] 04-26-2024 Albumin [Mass/Vol] 3.7 g/dL Normal 3.2-5.0 [facility] Comment on above: Performed By: #### L 506.1000, L500.4050, L501.9520, L100.0100, L500.4100 #### [facility] [address] [place], [address] Albumin/Globulin [Mass ratio] 1.2 {ratio} Normal 0.9-2.4 [facility] Comment on above: Performed By: #### L 506.1000, L500.4050, L501.9520, L100.0100, L500.4100 #### [facility] [address] [place], [address] ALK P 121 U/L High 45-117 [facility] Comment on above: Performed By: #### L 506.1000, L500.4050, L501.9520, L100.0100, L500.4100 #### [facility] [address] [place], [address] ALT [Catalytic activity/Vol] 23 U/L Normal 13-56 [facility] Comment on above: Performed By: #### L 506.1000, L500.4050, L501.9520, L100.0100, L500.4100 #### [facility] [address] [place], [address] AST [Catalytic activity/Vol] 21 U/L Normal 15-37 [facility] Comment on above: Performed By: #### L 506.1000, L500.4050, L501.9520, L100.0100, L500.4100 #### [facility] [address] [place], [address] Bilirubin [Mass/Vol] 0.50 mg/dL Normal 0.20-1.00 [facility] Comment on above: Result Comment: For patients on eltrombopag therapy, use of Dimension [place] TBIL is not recommended. Performed By: #### L 506.1000, L500.4050, L501.9520, L100.0100, L500.4100 #### [facility] [address] [place], [address] BUN/CRE 18.5 RATIO Normal 10-20 [facility] Comment on above: Performed By: #### L 506.1000, L500.4050, L501.9520, L100.0100, L500.4100 #### [facility] [address] [place], [address] CA,Total 8.7 mg/dL Normal 8.5-10.1 [facility] Comment on above: Performed By: #### L 506.1000, L500.4050, L501.9520, L100.0100, L500.4100 #### [facility] [address] [place], [address] Chloride [Moles/Vol] 104 mmol/L Normal 98-107 [facility] Comment on above: Performed By: #### L 506.1000, L500.4050, L501.9520, L100.0100, L500.4100 #### [facility] [address] [place], [address] CO2 [Moles/Vol] 31.0 mmol/L Normal 21.0-32.0 [facility] Comment on above: Performed By: #### L 506.1000, L500.4050, L501.9520, L100.0100, L500.4100 #### [facility] [address] [place], [address] Creatinine [Mass/Vol] 0.97 mg/dL Normal 0.55-1.02 [facility] Comment on above: Result Comment: The validity of the calculated GFR GFRAA in patients over 70 years has not been determined. Clinical correlation is essential. Performed By: #### L 506.1000, L500.4050, L501.9520, L100.0100, L500.4100 #### [facility] [address] [place], [address] EST GFR - AA 71 mL/min Normal >60 [facility] Comment on above: Result Comment: Afri can [place] GFR Calc Performed By: #### L 506.1000, L500.4050, L501.9520, L100.0100, L500.4100 #### [facility] [address] [place], [address] GAP 5 Normal 5-15 [facility] Comment on above: Performed By: #### L 506.1000, [id number], L501.9520, L100.0100, L500.4100 #### [facility] [address] [place], [address] GFR/1.73 sq M.predicted among non-blacks MDRD (S/P/Bld) [Vol rate/Area] 59 mL/min/{1.73_m2} Low >60 [facility] Comment on above: Result Comment: Non- GFR Calc Performed By: #### L 506.1000, L500.4050, L501.9520, L100.0100, L500.4100 #### [facility] [address] [place], [address] Globulin (S) [Mass/Vol] 3.1 g/dL Normal 2.2-4.2 [facility] Comment on above: Performed By: #### L 506.1000, [id number], L501.9520, L100.0100, L500.4100 #### [facility] [address] [place], [address] Glucose [Mass/Vol] 78 mg/dL Normal 74-106 [facility] Comment on above: Performed By: #### L 506.1000, [id number], [id number], L100.0100, L500.4100 #### [facility] [address] [place], [address] Potassium [Moles/Vol] 3.5 mmol/L Normal 3.5-5.1 [facility] Comment on above: Performed By: #### L 506.1000, [id number], [id number], L100.0100, L500.4100 #### [facility] [address] [place], [address] Sodium [Moles/Vol] 140 mmol/L Normal 136-145 [facility] Comment on above: Performed By: #### L 506.1000, [id number], L501.9520, L100.0100, L500.4100 #### [facility] [address] [place], [address] T PROT 6.8 g/dL Normal 6.4-8.2 [facility] Comment on above: Performed By: #### L 506.1000, [id number], [id number], L100.0100, L500.4100 #### [facility] [address] [place], [address] Urea nitrogen [Mass/Vol] 18 mg/dL Normal 7-18 [facility] Comment on above: Performed By: #### L 506.1000, [id number], [id number], L100.0100, L500.4100 #### [facility] [address] [place], [address] Lipid Profileon 04-26-2024 Cholesterol [Mass/Vol] 220 mg/dL High 200 [facility] Comment on above: Result Comment: <200 mg/dL Desirable 200-240 mg/dL Borderline >240 mg/dL High Risk Performed By: #### L 506.1000, [id number], L501.9520, L100.0100, L500.4100 #### [facility] [address] [place], [address] Cholesterol in HDL [Mass/Vol] 52 mg/dL Normal [facility] Comment on above: Result Comment: The drugs N-Acetylcysteine and Metamizole may falsely depress this assay. Reference Range HDL <40 mg/dL Low HDL Cholesterol HDL >or= 60 mg/dL High HDL Cholesterol Performed By: #### L 506.1000, L500.4050, L501.9520, L100.0100, L500.4100 #### [facility] [address] [place], [address] Cholesterol in LDL [Mass/Vol] 138 mg/dL High 0-130 [facility] Comment on above: Performed By: #### L 506.1000, [id number], [id number], L100.0100, L500.4100 #### [facility] [address] [place], [address] Cholesterol in VLDL [Mass/Vol] 30 mg/dL Normal 5-40 [facility] Comment on above: Performed By: #### L 506.1000, [id number], [id number], L100.0100, L500.4100 #### [facility] [address] [place], [address] Triglyceride [Mass/Vol] 150 mg/dL Normal [facility] Comment on above: Result Comment: The drugs N-Acetylcysteine and Metamizole may falsely depress this assay. Serum Triglycerides Reference Interval Normal <150 mg/dL Borderline high 150 - 199 mg/dL High 200 - 499 mg/dL Very High > or = 500 mg/dL Performed By: #### L 506.1000, L500.4050, L501.9520, L100.0100, L500.4100 #### [facility] [address] [place], [address] Thyroid Stim Hormone (TSH)on 04-26-2024 TSH 1.01 uIU/mL Normal 0.358-3.74 [facility] Comment on above: Performed By: #### L 506.1000, [id number], [id number], L100.0100, L500.4100 #### [facility] [address] [place], [address] Vitamin D,25 Hydroxyon 04-26 Vitamin D 25-OH 46.2 ng/mL Normal [facility] Comment on above: Result Comment: Juli min D 25(OH) Status Range Deficiency <20 ng/mL (50nmol/L) Insufficiency 20 - 30 ng/mL (50 - 75 nmol/L) Sufficiency 30 - 100 ng/mL (75 - 250 nmol/L) Toxicity >100 ng/mL (>250 nmol/L) Performed By: #### L 506.1000, [id number], [id number], L100.0100, L500.4100 #### [facility] [address] [place], [address] Basophil percentageOrdered B y: North Polo on 11-19-2023 Chloride [Moles/Vol] 103 mmol/L 98-107 [facility] Glucose [Mass/Vol] 129 mg/dL 74-106 [facility] Comment on above: Fasting Glucose resu lt greater than or equal to 126 mg/dL suggests DIABETES MELLITUS per A.D.A. criteria. Potassium [Moles/Vol] 3.4 mmol/L 3.5-5.1 [facility] Sodium [Moles/Vol] 138 mmol/L 136-145 [facility] Laboratory - Chemistry and C hemistry - challengeOrdered By: North Cuellar on 11-19-2023 CO2 [Moles/Vol] 29.0 mmol/L 21.0-32.0 [facility] Urea nitrogen/Creatinine [Mass ratio] 20.3 mg/mg 10-20 [facility] No Panel InformationOrdered By: North Cuellar on 11-19-2023 Estimated GFR (MDRD) Amer 74 mL/min >60 [facility] Comment on above: GFR Calc Estimated GFR (MDRD) Non-Af Amer 61 mL/min >60 [facility] Comment on above: Non- GFR Calc Serum or plasma calcium shamar urement (mass/volume)Ordered By: North Cuellar on 11-19-2023 Calcium [Mass/Vol] 9.6 mg/dL 8.5-10.1 [facility] Serum or plasma creatinine m easurement (mass/volume)Ordered By: North Cuellar on 11-19-2023 Creatinine [Mass/Vol] 0.94 mg/dL 0.55-1.02 [facility] Comment on above: The validity of the calculated GFR & GFRAA in patients over 70 years has not been determined. Clinical correlation is essential. Serum or plasma urea nitroge n measurement (mass/volume)Ordered By: North Cuellar on 11-19-2023 Urea nitrogen [Mass/Vol] 19 mg/dL 7-18 [facility] Thin prep Papanicolaou smear with manual screeningOrdered By: North Cuellar on 11-19-2023 Thin prep Papanicolaou smear with manual screening 6 5-15 [facility] - Microbiology an d Antimicrobial susceptibilityOrdered By: North Cuellar on 11-13-2023 SARS-CoV-2 (COVID-19) RNA ANIKA+probe Ql (Unsp spec) [facility] SARS-CoV-2 (COVID-19) RNA ANIKA+probe Ql (Unsp spec) [facility] Absolute lymphocyte countOrd ered By: North Cuellar on 11-11-2023 Lymphocytes Auto (Unsp spec) [#/Vol] 1.91 10*3/uL 0.83-4.51 [facility] Automated lymphocyte count a s percentage of total leukocytesOrdered By: North Cuellar on 11-11-2023 Lymphocytes/100 WBC Auto (Unsp spec) 23.7 % 19-41 [facility] Basophil percentageOrdered B y: North Cuellar on 11-11-2023 Basophils/100 WBC (Bld) 0.6 % 0-1 [facility] Bilirubin [Mass/Vol] 0.50 mg/dL 0.20-1.00 [facility] Comment on above: For patients on eltr ombopag therapy, use of Dimension [place] TBIL is not recommended. Chloride [Moles/Vol] 104 mmol/L 98-107 [facility] Eosinophils/100 WBC (Bld) 1.4 % 0-5 [facility] Glucose [Mass/Vol] 91 mg/dL 74-106 [facility] Hemoglobin (Bld) [Mass/Vol] 13.7 g/dL 12.0-15. 0 [facility] Monocytes/100 WBC (Bld) 10.3 % 0-10 [facility] Neutrophils (Bld) [#/Vol] 5.1 10*3/uL 2.0-7.7 [facility] Neutrophils/100 WBC (Bld) 63.5 % 47-70 [facility] Potassium [Moles/Vol] 3.3 mmol/L 3.5-5.1 [facility] Protein [Mass/Vol] 7.0 g/dL 6.4-8.2 [facility] Sodium [Moles/Vol] 138 mmol/L 136-145 [facility] WBC (Bld) [#/Vol] 8.1 10*3/uL 4.4-11.0 [facility] Culture, urineOrdered By: Salvatore Cuellar on 11-11-2023 Bacteria identified Cx Nom (U) Positive [facility] Bacteria identified Cx Nom (U) Positive [facility] Determination of erythrocyte mean corpuscular volume (MCV)Ordered By: North Cuellar on 11-11-2023 MCV (RBC) [Entitic vol] 94.5 fL 81-99 [facility] Erythrocyte distribution wid th ratioOrdered By: North Cuellar on 11-11-2023 Erythrocyte distribution width (RBC) [Ratio] 13.0 % 11.6-14.6 [facility] Erythrocyte distribution wid th standard deviationOrdered By: North Cuellar on 11-11-2023 Erythrocyte distribution width (RBC) [Entitic vol] 44.5 fL 35.1-43.9 [facility] Hematocrit Auto (Bld) [Volum e fraction]Ordered By: North Polo on 11-11-2023 Hematocrit (Bld) [Volume fraction] 42.9 % 37-47 [facility] Immature granulocytes/100 WB C Auto (Bld)[facility] Immature granulocytes/100 WBC (Bld) 0.500 % 0.0-0.9 [facility] Comment on above: IG% - Immature Granu locytes (promyelocytes, myelocytes and metamyelocytes) > 1% indicates that a LEFT SHIFT is Present. Laboratory - Chemistry and C hemistry - challengeOrdered By: North Cuellar 11-11-2023 Albumin/Globulin [Mass ratio] 1.1 {ratio} 0.9-2.4 [facility] ALP [Catalytic activity/Vol] 117 U/L 45-117 [facility] ALT [Catalytic activity/Vol] 31 U/L 13-56 [facility] CO2 [Moles/Vol] 29.0 mmol/L 21.0-32.0 [facility] Globulin (S) [Mass/Vol] 3.3 g/dL 2.2-4.2 [facility] Urea nitrogen/Creatinine [Mass ratio] 25.8 mg/mg 10-20 [facility] - Hematology and Cell countsOrdered By: North Cuellar 11-11-2023 MCH (RBC) [Entitic mass] 30.2 pg 27.0-32.0 [facility] MCHC (RBC) [Mass/Vol] 31.9 g/dL 32-36 [facility] Nucleated RBC/100 WBC (Bld) [Ratio] 0 % 0-5 [facility] Platelet mean volume (Bld) [Entitic vol] 11.0 fL 6.2-12.0 [facility] Platelets (Bld) [#/Vol] 206 10*3/uL 150-450 [facility] No Panel InformationOrdered By: North Cuellar on 11-11-2023 Estimated GFR (MDRD) Amer 75 mL/min >60 [facility] Comment on above: GFR Calc Estimated GFR (MDRD) Non-Af Amer 62 mL/min >60 [facility] Comment on above: Non- GFR Calc RBC Auto (Bld) [#/Vol]Ordere d By: North Cuellar on 11-11-2023 RBC (Bld) [#/Vol] 4.54 10*6/uL 4.2-5.4 [facility] Serum or plasma calcium shamar urement (mass/volume)Ordered By: North Cuellar on 11-11-2023 Calcium [Mass/Vol] 9.2 mg/dL 8.5-10.1 [facility] Serum or plasma creatinine m easurement (mass/volume)Ordered By: North Cuellar on 11-11-2023 Creatinine [Mass/Vol] 0.93 mg/dL 0.55-1.02 [facility] Comment on above: The validity of the calculated GFR & GFRAA in patients over 70 years has not been determined. Clinical correlation is essential. Serum or plasma thyroid stim ulating hormone (TSH) measurement (units/volume)Ordered By: North Cuellar on 11-11-2023 TSH Qn 1.02 uIU/mL 0.358-3.74 [facility] Serum or plasma urea nitroge n measurement (mass/volume)Ordered By: North Cuellar on 11-11-2023 Urea nitrogen [Mass/Vol] 24 mg/dL 7-18 [facility] Thin prep Papanicolaou smear with manual screeningOrdered By: North Cuellar on 11-11-2023 Thin prep Papanicolaou smear with manual screening 3.7 g/dL 3.2-5.0 [facility] Thin prep Papanicolaou smear with manual screening 19 U/L 15-37 [facility] Thin prep Papanicolaou smear with manual screening 5 5-15 [facility] Absolute lymphocyte countOrd ered By: North Cuellar on 10-27-2023 Lymphocytes Auto (Unsp spec) [#/Vol] 1.68 10*3/uL 0.83-4.51 [facility] Automated lymphocyte count a s percentage of total leukocytesOrdered By: North Cuellar on 10-27-2023 Lymphocytes/100 WBC Auto (Unsp spec) 26.5 % 19-41 [facility] Basophil percentageOrdered B y: North Cuellar on 10-27-2023 Basophils/100 WBC (Bld) 0.9 % 0-1 [facility] Bilirubin [Mass/Vol] 0.40 mg/dL 0.20-1.00 [facility] Comment on above: For patients on eltr ombopag therapy, use of [employer] [place] TBIL is not recommended. Chloride [Moles/Vol] 102 mmol/L 98-107 [facility] Eosinophils/100 WBC (Bld) 1.7 % 0-5 [facility] Glucose [Mass/Vol] 118 mg/dL 74-106 [facility] Comment on above: Fasting Glucose resu lt from 100 to 125 mg/dL suggests IMPAIRED HOMEOSTASIS per A.D.A. criteria. Hemoglobin (Bld) [Mass/Vol] 13.1 g/dL 12.0-15. 0 [facility] Monocytes/100 WBC (Bld) 8.7 % 0-10 [facility] Neutrophils (Bld) [#/Vol] 3.9 10*3/uL 2.0-7.7 [facility] Neutrophils/100 WBC (Bld) 61.7 % 47-70 [facility] Potassium [Moles/Vol] 3.7 mmol/L 3.5-5.1 [facility] Protein [Mass/Vol] 7.7 g/dL 6.4-8.2 [facility] Sodium [Moles/Vol] 137 mmol/L 136-145 [facility] WBC (Bld) [#/Vol] 6.3 10*3/uL 4.4-11.0 [facility] Determination of erythrocyte mean corpuscular volume (MCV)Ordered By: North Cuellar on 10-27-2023 MCV (RBC) [Entitic vol] 93.5 fL 81-99 [facility] Erythrocyte distribution wid th ratioOrdered By: North Cuellar on 10-27-2023 Erythrocyte distribution width (RBC) [Ratio] 13.2 % 11.6-14.6 [facility] Erythrocyte distribution wid th standard deviationOrdered By: North Cuellar on 10-27-2023 Erythrocyte distribution width (RBC) [Entitic vol] 45.6 fL 35.1-43.9 [facility] Hematocrit Auto (Bld) [Volum e fraction]Ordered By: North Cuellar on 10-27-2023 Hematocrit (Bld) [Volume fraction] 40.6 % 37-47 [facility] Immature granulocytes/100 WB C Auto (Bld)Or[facility]: [facility] 10-[facility]23 Immature granulocytes/100 WBC (Bld) 0.500 % 0.0-0.9 [facility] Comment on above: IG% - Immature Granu locytes (promyelocytes, myelocytes and metamyelocytes) > 1% indicates that a LEFT SHIFT is Present. Laboratory - Chemistry and C hemistry - challengeOrdered By: North Cuellar 10-27-2023 Albumin/Globulin [Mass ratio] 0.9 {ratio} 0.9-2.4 [facility] ALP [Catalytic activity/Vol] 130 U/L 45-117 [facility] ALT [Catalytic activity/Vol] 35 U/L 13-56 [facility] CO2 [Moles/Vol] 28.0 mmol/L 21.0-32.0 [facility] Globulin (S) [Mass/Vol] 4.0 g/dL 2.2-4.2 [facility] Urea nitrogen/Creatinine [Mass ratio] 19.1 mg/mg 10-20 [facility] - Hematology and Cell countsOrdered By: North Cuellar 10-27-2023 MCH (RBC) [Entitic mass] 30.2 pg 27.0-32.0 [facility] MCHC (RBC) [Mass/Vol] 32.3 g/dL 32-36 [facility] Nucleated RBC/100 WBC (Bld) [Ratio] 0 % 0-5 [facility] Platelets (Bld) [#/Vol] 210 10*3/uL 150-450 [facility] No Panel InformationOrdered By: North Cuellar 10-27-2023 Estimated GFR (MDRD) Amer 59 mL/min >60 [facility] Comment on above: GFR Calc Estimated GFR (MDRD) Non-Af Amer 48 mL/min >60 [facility] Comment on above: Non- GFR Calc Vitamin D 25-Hydroxy 35.8 ng/mL [facility] Comment on above: Vitamin D 25(OH) Sta tus Range Deficiency <20 ng/mL (50nmol/L) Insufficiency 20 - 30 ng/mL (50 - 75 nmol/L) Sufficiency 30 - 100 ng/mL (75 - 250 nmol/L) Toxicity >100 ng/mL (>250 nmol/L) Platelet mean volume Rob-Ec ker (Bld) [Entitic vol]Ordered By: North Cuellar on 10-27-2023 Platelet mean volume (Bld) [Entitic vol] 10.9 fL 6.2-12.0 [facility] RBC Auto (Bld) [#/Vol]Ordere d By: North Cuellar on 10-27-2023 RBC (Bld) [#/Vol] 4.34 10*6/uL 4.2-5.4 [facility] Serum or plasma calcium shamar urement (mass/volume)Ordered By: North Cuellar on 10-27-2023 Calcium [Mass/Vol] 9.1 mg/dL 8.5-10.1 [facility] Serum or plasma creatinine m easurement (mass/volume)Ordered By: North Cuellar on 10-27-2023 Creatinine [Mass/Vol] 1.15 mg/dL 0.55-1.02 [facility] Comment on above: The validity of the calculated GFR & GFRAA in patients over 70 years has not been determined. Clinical correlation is essential. Serum or plasma thyroid stim ulating hormone (TSH) measurement (units/volume)Ordered By: North Cuellar on 10-27-2023 TSH Qn 0.90 uIU/mL 0.358-3.74 [facility] Serum or plasma urea nitroge n measurement (mass/volume)Ordered By: North Cuellar on 10-27-2023 Urea nitrogen [Mass/Vol] 22 mg/dL 7-18 [facility] Thin prep Papanicolaou smear with manual screeningOrdered By: North Cuellar 10-27-2023 Thin prep Papanicolaou smear with manual screening 3.7 g/dL 3.2-5.0 [facility] Thin prep Papanicolaou smear with manual screening 12 U/L 15-37 [facility] Thin prep Papanicolaou smear with manual screening 7 5-15 [facility] - Microbiology an d Antimicrobial susceptibilityOrdered By: North Polo on 08-08-2023 SARS-CoV-2 (COVID-19) RNA ANIKA+probe Ql (Unsp spec) [facility] No Panel InformationOrdered By: North Cuellar on 08-08-2023 Influenza Types A,B Direct FA (MICHELLE) [facility] RSV Ag Immune stain Ql (Tiss )Ordered By: North Cuellar on 08-08-2023 Rapid RSV (DFA) RSV [facility] Absolute lymphocyte countOrd ered By: North Meltonok on 04-14-2023 Lymphocytes Auto (Unsp spec) [#/Vol] 1.80 10*3/uL 0.83-4.51 [facility] Basophil percentageOrdered B y: North Polo on 04-14-2023 Basophils/100 WBC (Bld) 0.9 % 0-1 [facility] Bilirubin [Mass/Vol] 0.40 mg/dL 0.20-1.00 [facility] Comment on above: For patients on eltr ombopag therapy, use of [employer] TBIL is not recommended. Chloride [Moles/Vol] 103 mmol/L 98-107 [facility] Eosinophils/100 WBC (Bld) 1.0 % 0-5 [facility] Glucose [Mass/Vol] 81 mg/dL 74-106 [facility] Neutrophils (Bld) [#/Vol] 5.1 10*3/uL 2.0-7.7 [facility] Neutrophils/100 WBC (Bld) 65.9 % 47-70 [facility] Potassium [Moles/Vol] 3.6 mmol/L 3.5-5.1 [facility] Protein [Mass/Vol] 7.1 g/dL 6.4-8.2 [facility] Sodium [Moles/Vol] 136 mmol/L 136-145 [facility] WBC (Bld) [#/Vol] 7.7 10*3/uL 4.4-11.0 [facility] Blood erythrocytes count (nu mber/volume)Ordered By: North Cuellar on 04-14-2023 RBC (Bld) [#/Vol] 4.25 10*6/uL 4.2-5.4 [facility] Blood hemoglobin measurement (mass/volume)Ordered By: North Cuellar on 04-14-2023 Hemoglobin (Bld) [Mass/Vol] 13.2 g/dL 12.0-15. 0 [facility] Blood lymphocytes/100 leukoc ytesOrdered By: North Cuellar on 04-14-2023 Lymphocytes/100 WBC (Bld) 23.3 % 19-41 [facility] Blood monocytes/100 leukocyt esOrdered By: [facility] Polo on 04-14-2023 Monocytes/100 WBC (Bld) 8.4 % 0-10 [facility] Blood platelet mean volumeOr dered By: North Cuellar on 04-14-2023 Platelet mean volume (Bld) [Entitic vol] 10.9 fL 6.2-12.0 [facility] Determination of erythrocyte mean corpuscular volume (MCV)Ordered By: North Cuellar on 04-14-2023 MCV (RBC) [Entitic vol] 96.9 fL 81-99 [facility] Hematocrit Auto (Bld) [Volum e fraction]Ordered By: North Cuellar on 04-14-2023 Hematocrit (Bld) [Volume fraction] 41.2 % 37-47 [facility] - Chemistry and C hemistry - challengeOrdered By: North Cuellar on 04-14-2023 Cobalamin (Vitamin B12) [Mass/Vol] 513 pg/mL 211-911 [facility] ALP [Catalytic activity/Vol] 125 U/L 45-117 [facility] ALT [Catalytic activity/Vol] 41 U/L 13-56 [facility] CO2 [Moles/Vol] 26.0 mmol/L 21.0-32.0 [facility] Globulin (S) [Mass/Vol] 3.4 g/dL 2.2-4.2 [facility] Urea nitrogen/Creatinine [Mass ratio] 16.1 mg/mg 10-20 [facility] - Hematology and Cell countsOrdered By: North Cuellar on 04-14-2023 Erythrocyte distribution width (RBC) [Entitic vol] 48.7 fL 35.1-43.9 [facility] Erythrocyte distribution width (RBC) [Ratio] 13.6 % 11.6-14.6 [facility] Immature granulocytes/100 WBC (Bld) 0.500 % 0.0-0.9 [facility] Comment on above: IG% - Immature Granu locytes (promyelocytes, myelocytes and metamyelocytes) > 1% indicates that a LEFT SHIFT is Present. MCH (RBC) [Entitic mass] 31.1 pg 27.0-32.0 [facility] Nucleated RBC/100 WBC (Bld) [Ratio] 0 % 0-5 [facility] MCHC Auto (RBC) [Mass/Vol]Or dered By: North Cuellar on 04-14-2023 MCHC (RBC) [Mass/Vol] 32.0 g/dL 32-36 [facility] No Panel InformationOrdered By: North Cuellar on 04-14-2023 Estimated GFR (MDRD) Amer 75 mL/min >60 [facility] Comment on above: GFR Calc Estimated GFR (MDRD) Non-Af Amer 62 mL/min >60 [facility] Comment on above: Non- GFR Calc Thyroid Stimulating Hormone (TSH) 1.18 uIU/mL 0.358-3.74 [facility] Vitamin D 25-Hydroxy 29.8 ng/mL [facility] Comment on above: Vitamin D 25(OH) Sta tus Range Deficiency <20 ng/mL (50nmol/L) Insufficiency 20 - 30 ng/mL (50 - 75 nmol/L) Sufficiency 30 - 100 ng/mL (75 - 250 nmol/L) Toxicity >100 ng/mL (>250 nmol/L) Platelets bldOrdered By: North Cuellar on 04-14-2023 Platelets (Bld) [#/Vol] 200 10*3/uL 150-450 [facility] Serum or plasma albumin shamar urement (mass/volume)Ordered By: North Cuellar on 04-14-2023 Albumin [Mass/Vol] 3.7 g/dL 3.2-5.0 [facility] Serum or plasma albumin/glob ulin mass ratioOrdered By: North Cuellar on 04-14-2023 Albumin/Globulin [Mass ratio] 1.1 {ratio} 0.9-2.4 [facility] Serum or plasma calcium shamar urement (mass/volume)Ordered By: North Cuellar on 04-14-2023 Calcium [Mass/Vol] 9.0 mg/dL 8.5-10.1 [facility] Serum or plasma creatinine m easurement (mass/volume)Ordered By: North Cuellar on 04-14-2023 Creatinine [Mass/Vol] 0.93 mg/dL 0.55-1.02 [facility] Comment on above: The validity of the calculated GFR & GFRAA in patients over 70 years has not been determined. Clinical correlation is essential. Serum or plasma urea nitroge n measurement (mass/volume)Ordered By: North Polo on 04-14-2023 Urea nitrogen [Mass/Vol] 15 mg/dL 04-08 [facility] Thin prep Papanicolaou smear with manual screeningOrdered By: North Polo 04-14-2023 Thin prep Papanicolaou smear with manual screening 25 U/L 15-37 [facility] Thin prep Papanicolaou smear with manual screening 7 5-15 [facility] CNOVon 04-08-2023 CNOV Office Visit (NEAGCL M) PONCEREYES LOPEZ ([id number]) 1945 F Date Time Provider Department 04/08/23 10:[address] [facility]AG[facility] During your visit today, we recorded the following information about you: Pulse Blood pressure Weight Height 71/minute 133/86 71 kg 1.[address] MD 04/08/2023 10:04 AM Signed NEUROSURGERY FOLLOW UP OFFICE NOTE Dr. Jutsin Street MD, [facility] Date of visit: April 08, 2023 Patient Name: Ms.Reyes Ponce Date of : 1945 Current Age: [age] year old Sex: female MRN/E# [id number] Last Office Visit: Hospital follow-up Chief Complaint: [...] Plavix who was seen in consult at [facility] on 03/19/2023 after a ground-level fall. She [...] Location: Head Description: Other: See comment discomfort, "heavy" Duration Units: Weeks Frequency: Intermittent Intervention/Comfort measure: [...] reconstruction-Dr. George RMVL JENNIFER CTR VAD W/SUBQ PORT/PLUMBER SUPERVISOR CTR/PRPH INSJ 11-07-08 TONSILLECTOMY HX 1972 TOTAL ABDOMINAL HYSTERECT W/WO RMVL TUBE OVARY Hysterectomy, JOAQUINA FAMILY HISTORY Problem Relation Age of Onset other (Other) Mother at age 52 of disease of endocrine system Heart Father PA Stroke Father Coronary Artery Disease Son age 47 PA Alcohol/Drug Son cirrhosis ALLERGIES Allergen Reactions Ambien [Zolpidem Ta* hallucinations Bactrim [Sulfametho* Rash Codeine tight band around heand AND couldn't breath" Darvocet-N 100 [Pro* Intolerance severe nightmares Hytrin [Terazosin H* swelling of face Iodine Other: See Comments "face swelling" after used in a scan but uses [...] REVIEW OF SYSTEMS Review of Systems Constitutional: Neg (more content not included)... Normal [facility] CT BRAIN WO IVCONon 04-08-[address] BRAIN WO IVCON * * *Final Report* * * DATE OF EXAM: Apr 08 2023 9:14AM A1C 0504 - CT BRAIN WO IVCON / PROCEDURE REASON: Subdural bleeding (HCC) * * * * Physician Interpretation * * * * EXAMINATION: CT BRAIN WO IVCON CLINICAL HISTORY: Subdural hematoma. Follow-up TECHNIQUE: Serial axial images without IV contrast were obtained from the vertex to the foramen magnum. MQ: CTBWO_3 CT Radiation dose: Integrated Dose-Length Product (DLP) for this visit = 794.52 mGy*cm CT Dose Reduction Employed: No dose reduction techniques were required COMPARISON: Multiple priors, most recently 03/19/2023 RESULT: Post-operative change: None. Acute change: No evidence of an acute infarct or other acute parenchymal process. Hemorrhage: Previously subdural hematoma along the left medial inferior temporal convexity and left tentorial leaflet has essentially resolved. No definitive residual hemorrhage. No new hemorrhage in the interval. Mass Lesion / Mass Effect: There is no evidence of an intracranial mass or extraaxial fluid collection. No significant mass effect. Chronic change: Patchy foci of low attenuation coefficient are present within the supratentorial white matter which is a nonspecific finding but likely represents moderate microvascular ischemia. 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 Parenchyma: There is mild generalized volume loss. The brain parenchyma is otherwise within normal limits for age. Ventricles: Ventricular enlargement concordant with the degree of parenchymal volume loss. Paranasal sinuses and skull base: The visualized paranasal sinuses are grossly clear. The skull base and imaged soft tissues are unremarkable. Street Engineer (topogram) images: No additional significant findings IMPRESSION: No acute intracranial process. Previously subdural hematoma along the left medial inferior temporal convexity and left tentorial leaflet has essentially resolved. No definitive residual hemorrhage. No new hemorrhage in the interval. Chronic findings as noted. Advertising Designer: PSCB Transcribe Date/Time: Apr 10 2023 8:51A Dictated by : OMER MACKAY MD This examination was interpreted and the report reviewed and electronically signed by: OMER MACKAY MD on Apr 10 2023 8:55AM EST [id number] Normal [facility] Basophil percentageOrdered B y: North Cuellar on 03-27-2023 Chloride [Moles/Vol] 102 mmol/L 98-107 [facility] Glucose [Mass/Vol] 97 mg/dL 74-106 [facility] Potassium [Moles/Vol] 3.6 mmol/L 3.5-5.1 [facility] Sodium [Moles/Vol] 137 mmol/L 136-145 [facility] Laboratory - Chemistry and C hemistry - challengeOrdered By: North Cuellar on 03-27-2023 CO2 [Moles/Vol] 27.0 mmol/L 21.0-32.0 [facility] Urea nitrogen/Creatinine [Mass ratio] 22.5 mg/mg 10-20 [facility] No Panel InformationOrdered By: North Cuellar on 03-27-2023 Estimated GFR (MDRD) Amer 84 mL/min >60 [facility] Comment on above: GFR Calc Estimated GFR (MDRD) Non-Af Amer 69 mL/min >60 [facility] Comment on above: Non- GFR Calc Serum or plasma calcium shamar urement (mass/volume)Ordered By: North Cuellar on 03-27-2023 Calcium [Mass/Vol] 9.1 mg/dL 8.5-10.1 [facility] Serum or plasma creatinine m easurement (mass/volume)Ordered By: North Cuellar on 03-27-2023 Creatinine [Mass/Vol] 0.84 mg/dL 0.55-1.02 [facility] Comment on above: The validity of the calculated GFR & GFRAA in patients over 70 years has not been determined. Clinical correlation is essential. Serum or plasma urea nitroge n measurement (mass/volume)Ordered By: North Cuellar on 03-27-2023 Urea nitrogen [Mass/Vol] 19 mg/dL 7-18 [facility] Thin prep Papanicolaou smear with manual screeningOrdered By: North Cuellar on 03-27-2023 Thin prep Papanicolaou smear with manual screening 8 5-15 [facility] ALLIED HEALTHon 03-22-2023 ALLIED HEALTH HNO ID: [id number] Author: Chaplain Robe Student Service: Spiritual Care Author Type: Student Type: Allied Health Filed: 03/22/2023 12:19 PM Note Text: SPIRITUAL CARE PROGRESS NOTE SERVICE DATE: 03/22/2023 SERVICE TIME: 10:00am Introduced myself to patient and her who was at her bedside. Patient is completely positive and says she's blessed. She went on to tell me about her life and her support system. To contact the Spiritual Care Department: Please call [phone]. SIGNATURE: Chaplain Robe Student PATIENT NAME: Reyes Ponce DATE: March 22, 2023 TIME: 12:18 PM PAGER/CONTACT #: [phone] Normal [facility] Basic metabolic 2000 panelon 03-22-2023 Anion gap [Moles/Vol] 10 mmol/L Normal 9-18 [facility] Comment on above: Order Comment: Speci men Type: BLOOD SPECIMEN Ordering Facility: [facility] Address: [address] [place] [address] Performed By: #### 3 2684-3 #### [facility] CLIA [id number] [address] [place] [address] [place] Calcium [Mass/Vol] 9.0 mg/dL Normal 8.5-10.2 [facility] Comment on above: Order Comment: Speci men Type: BLOOD SPECIMEN Ordering Facility: [facility] Address: [address] [place] [address] Performed By: #### 3 2684-3 #### [facility] CLIA [id number] 1 [place] [address] [place] Chloride [Moles/Vol] 102 mmol/L Normal 97-105 [facility] Comment on above: Order Comment: Speci men Type: BLOOD SPECIMEN Ordering Facility: [facility] Address: [address] [place] [address] Performed By: #### 3 2684-3 #### [facility] CLIA [id number] [address] [place] [address] [place] CO2 [Moles/Vol] 23 mmol/L Normal 22-30 [facility] Comment on above: Order Comment: Speci men Type: BLOOD SPECIMEN Ordering Facility: [facility] Address: [address] [place] [address] Performed By: #### 3 2684-3 #### [facility] CLIA [id number] [address] STATES OF [facility] Creatinine [Mass/Vol] 0.74 mg/dL Normal 0.58-0.96 [facility] Comment on above: Order Comment: Julianna shirley Type: BLOOD SPECIMEN Ordering Facility: [facility] Address: [address] [address] Performed By: #### 3 2684-3 #### [facility] CLIA [id number] [address] OF [place] ESTIMATED GLOMERULAR FILTRATION RATE 83 mL/min/1.73m??? Normal >=60 [facility] Comment on above: Order Comment: Julianna shirley Type: BLOOD SPECIMEN Ordering Facility: [facility] Address: [address] [place] [address] Result Comment: Lety mated Glomerular Filtration Rate (eGFR) is calculated using the 2020 CKD-EPI creatinine equation. This equation utilizes serum creatinine, sex, and age as parameters. The creatinine assay has traceable calibration to isotope dilution-mass spectrometry. Refer to KDIGO guidelines for clinical interpretation. In patients with unstable renal function, e.g. those with acute kidney injury, the eGFR may not accurately reflect actual GFR. Performed By: #### 3 2684-3 #### [facility] CLIA [id number] [address] Glucose [Mass/Vol] 102 mg/dL High 74-99 [facility] Comment on above: Order Comment: Julianna sihrley Type: BLOOD SPECIMEN Ordering Facility: [facility] Address: [address] [place] [address] Result Comment: The [place] Diabetes [employer] (ADA) provides guidance for cutoff values for fasting glucose and random glucose. The ADA defines fasting as no caloric intake for at least 8 hours. Fasting plasma glucose results between 100 to 125 mg/dL indicate increased risk for diabetes (prediabetes). Fasting plasma glucose results greater than or equal to 126 mg/dL meet the criteria for diagnosis of diabetes. In the absence of unequivocal hyperglycemia, results should be confirmed by repeat testing. In a patient with classic symptoms of hyperglycemia or hyperglycemic crisis, random plasma glucose results greater than or equal to 200 mg/dL meet the criteria for diagnosis of diabetes. Reference: Standards of Medical Care in Diabetes 2016, [place] [employer]. Diabetes Care. 2016.39(Suppl 1). Performed By: #### 3 2684-3 #### [facility] CLIA [id number] [address] Potassium [Moles/Vol] 4.2 mmol/L Normal 3.7-5.1 [facility] Comment on above: Order Comment: Speci men Type: BLOOD SPECIMEN Ordering Facility: [facility] Address: [address] [address] Performed By: #### 3 2684-3 #### [facility] CLIA [id number] [address] STATES [facility] Urea nitrogen [Mass/Vol] 14 mg/dL Normal 7-21 [facility] Comment on above: Order Comment: Speci men Type: BLOOD SPECIMEN Ordering Facility: [facility] Address: [address] [address] Performed By: #### 3 2684-3 #### [facility] CLIA [id number] [address] CBC panel Auto (Bld)on 03-22 Erythrocyte distribution width (RBC) [Ratio] 14.5 % Normal 11.5-15.0 [facility] Comment on above: Order Comment: Speci men Type: URINE SPECIMEN Ordering Facility: [facility] Address: [address] [address] Performed By: #### 3 5674-1, 14385-8 #### [facility] CLIA [id number] [address] Hematocrit (Bld) [Volume fraction] 37.4 % Normal 36.0-46.0 [facility] Comment on above: Order Comment: Speci men Type: URINE SPECIMEN Ordering Facility: [facility] Address: [address] [address] Performed By: #### 3 5674-1, 48107-2 #### [facility] CLIA [id number] [address] Hemoglobin (Bld) [Mass/Vol] 12.6 g/dL Normal 11.5-15. 5 [facility] Comment on above: Order Comment: Speci men Type: URINE SPECIMEN Ordering Facility: [facility] Address: [address] [place] [address] Performed By: #### 3 5674-1, 89522-9 #### [facility] CLIA [id number] [address] MCH (RBC) [Entitic mass] 31.6 pg Normal 26.0-34.0 [facility] Comment on above: Order Comment: Speci men Type: URINE SPECIMEN Ordering Facility: [facility] Address: [address] [place] [address] Performed By: #### 3 5674-1, 82691-4 #### [facility] CLIA [id number] [address] MCHC (RBC) [Mass/Vol] 33.7 g/dL Normal 30.5-36.0 [facility] Comment on above: Order Comment: Speci men Type: URINE SPECIMEN Ordering Facility: [facility] Address: [address] [place] [address] Performed By: #### 3 5674-1, 34929-6 #### [facility] CLIA [id number] [address] MCV (RBC) [Entitic vol] 93.7 fL Normal 80.0-100.0 [facility] Comment on above: Order Comment: Speci men Type: URINE SPECIMEN Ordering Facility: [facility] Address: [address] [place] [address] Performed By: #### 3 5674-1, 39371-2 #### [facility] CLIA [id number] [address] Nucleated RBC (Bld) [#/Vol] 10*3/uL Normal <0.01 [facility] Comment on above: Order Comment: Speci men Type: URINE SPECIMEN Ordering Facility: [facility] Address: [address] [address] Performed By: #### 3 5674-1, 51057-5 #### [facility] CLIA [id number] [address] [place] Platelet mean volume (Bld) [Entitic vol] 10.4 fL Normal 9.0-12.7 [facility] Comment on above: Order Comment: Speci men Type: URINE SPECIMEN Ordering Facility: [facility] Address: [address] [place] [address] Performed By: #### 3 5674-1, 09082-5 #### [facility] CLIA [id number] [address] STATES [place] Platelets (Bld) [#/Vol] 196 10*3/uL Normal 150-400 [facility] Comment on above: Order Comment: Speci men Type: URINE SPECIMEN Ordering Facility: [facility] Address: [address] [place] [address] Performed By: #### 3 5674-1, 85114-6 #### [facility] CLIA [id number] [address] [place] RBC (Bld) [#/Vol] 3.99 10*6/uL Normal 3.90-5.20 [facility] Comment on above: Order Comment: Speci men Type: URINE SPECIMEN Ordering Facility: [facility] Address: [address] [address] Performed By: #### 3 5674-1, 22535-4 #### [facility] CLIA [id number] 1 [place] [address] [place] WBC (Bld) [#/Vol] 6.07 10*3/uL Normal 3.70-11.00 [facility] Comment on above: Order Comment: Speci men Type: URINE SPECIMEN Ordering Facility: [facility] Address: [address] [place] [address], [place] [address] Performed By: #### 3 5674-1, 69424-9 #### [facility] [id number] [address] CNDSon 03-22-2023 CNDS HNO ID: [id number] Author: Efraín Ruiz MD Service: General Surgery Author Type: Resident Type: Discharge Summary Filed: 03/22/2023 8:58 PM Note Text: Attestation signed by Layo Benson MD at 03/23/2023 1:12 PM I was present with the resident during the discharge services. We discussed the case and I agree with the findings and discharge plan as documented in their note. I personally spent < 30 minutes in discharge day management. SIGNATURE: Layo Benson MD PATIENT NAME: Reyes Ponce DATE: March 23, 2023 TIME: 1:12 PM Pager: [phone] DISCHARGE SUMMARY PATIENT NAME: Reyes Ponce Code Status: Full Code Highest Readmission Risk Score: 15 The 30 day readmissions risk score is derived from an internally validated risk model which evaluates patient level characteristics, utilization history, medication orders and lab results up until the day of discharge. Patients with a score of 40 or above are considered highest risk for readmission. Specific patient level drivers will be listed at the bottom of the summary. Admission Information Admission Information ADMIT DATE: 03/18/2023 DISCHARGE DATE: 03/22/2023 MY DOCTORS AND MEDICAL TEAM: My Main Hospital Doctor: Layo Benson MD Primary Care Provider: North Cuellar MD My Medical Team Members: Treatment Team: Attending Provider: Layo Benson MD Consulting: Martin Tarango DO Consulting: Shannon Escobar MD Consulting: Cosmo Kaur MD MY CONDITION AT DISCHARGE: Stable REASON I WAS IN THE HOSPITAL: SDH SUMMARY OF WHAT HAPPENED WHILE I WAS IN THE HOSPITAL: You were admitted on 03/19 following GLF. Imaging was significant for SDH along L base of brain. DDAVP and platelets were given in the ED. Neurosurgery and neurology was consulted, the later secondary to recent CVA. Repeat CT was stable. Keppra was prescribed for 5 days. You developed hyponatremia, which was managed with salt tabs. Nephrology assisted with management, adding 2% NS. Speech evaluated you given cognitive defects, recommending outpatient therapy. PT/OT recommended HHC. You were ultimately discharged in stable condition, tolerating a regular diet and with a normal sodium. OTHER PROBLEMS/DIAGNOSIS: Principal Problem: SDH (subdural hematoma) (HCC) Active Problems: Fall Platelet inhibition due to Plavix Hyponatremia Cerebral salt-wasting syndrome Resolved Problems: * No resolved hospital problems. * OPERATIONS PERFORMED WHILE IN THE HOSPITAL: None IMPORTANT TEST/PROCEDURES: No procedures performed TEST RESULTS NOT AVAILABLE AT THIS TIME: No pending results Discharge Disposition Discharge Disposition: Home With Home Care Activity When You Leave the Hospital Lifting is restricted to: 10-15 lbs for 2-3 weeks after surgery No walking restrictions Other: Do not submerge incision until fully healed. Able to shower and pat dry though. Resume pre-hospital activity Diet Instructions Resume your pre-hospital diet For Pain When You Leave the Hospital Continue taking previously prescribed pain medications as directed If you become constipated, you may use any nnni-jql-qrkytdg treatment such as Milk of Magnesia, Sennakot, Prune Juice, Suppositories, etc. in addition to the stool softener/fiber supplement No alcohol or driving while on pain medication Some muscle ache can be expected for a day or two Use acetaminophen (Tylenol) as recommended on the bottle Use the dispensed medication (see prescription) You should use an ehoo-isw-dfydhcp stool softener (Docusate sodium) and/or a fiber supplement (Metamucil, Fiber Con) every day while taking prescribed pain medication Wound/Surgical Site Care It is normal to have swelling, mild bruising, blood on the steri-strips, numbness and firmness around the incision Some bleeding from the wound/surgical site can be expected. If excessive, see a doctor at once Wash your hands frequently, especially before touching your incision, after using restroom and before eating Call Your Doctor If Your temperature is greater than 101F Follow Up Appointments Follow-Up Appointment When: In 2 weeks Layo Benson MD [phone] [address] [phone] PCP Requested Referral Follow-Up Appointment When: In [address] MD [phone] [address] [facility] [address] PCP Requested Referral Additional Provider to Provider Information: Principal Problem: SDH (subdural hematoma) (HCC) Active Problems: Fall Platelet inhibition due to Plavix Hyponatremia Cerebral salt-wasting syndrome Resolved Problems: * No resolved hospital problems. * Treatment Team: Attending Provider: Layo Benson MD Consulting: Selam (more content not included)... Normal [facility] LMWH PPP-aCncon 03-22-2023 LMW Heparin Qn (PPP) 0.34 IU/mL High <0.10 [facility] Comment on above: Order Comment: Speci casper Type: BLOOD SPECIMEN Ordering Facility: [facility] Address: [address] [place] [address] Result Comment: Ther apeutic Range: 0.5 to 1.1 IU/mL (Arch Pathology Lab Med 1998: 122:799 to 807). Performed By: #### 3 2684-3 #### [facility] CLIA [id number] [address] [place] [address] [facility] [place] Sodium SerPl-sCncon 03-22-20 23 Sodium [Moles/Vol] 135 mmol/L Low 136-144 [facility] Comment on above: Order Comment: Julianna shirley Type: BLOOD SPECIMEN Ordering Facility: [facility] Address: [address] [place] [address] Performed By: #### 3 2684-3 #### [facility] CLIA [id number] [address] STATES OF [facility] Sodium [Moles/Vol] 135 mmol/L Low 136-144 [facility] Comment on above: Order Comment: Speci men Type: URINE SPECIMEN Ordering Facility: [facility] Address: [address] [place] [address] Performed By: #### 3 5674-1, 45280-5 #### [facility] CLIA [id number] [address] [place] 25([place])D3 SerPl-ncon 2022 25-hydroxyvitamin D3 [Mass/Vol] 23.3 ng/mL Low >=30.0 [facility] Comment on above: Order Comment: Speci men Type: URINE SPECIMEN Ordering Facility: [facility] Address: [address] [place] [address] Result Comment: Clas sification of 25 [place] Vitamin D status: Deficiency: <= 20.0 ng/ml. Insufficiency: 21.0-29.0 ng/ml. Sufficiency: >= 30.0 ng/ml. Performed By: #### 3 5674-1, 88746-2 #### [facility] CLIA [id number] [address] [place] [address] [place] Basic metabolic 2000 panelon 03-21-2023 Anion gap [Moles/Vol] 11 mmol/L Normal 9-18 [facility] Comment on above: Order Comment: Speci men Type: URINE SPECIMEN Ordering Facility: [facility] Address: [address] [place] [address] Performed By: #### 2 4356-8 #### [facility] CLIA [id number] [address] [place] Calcium [Mass/Vol] 8.8 mg/dL Normal 8.5-10.2 [facility] Comment on above: Order Comment: Speci men Type: URINE SPECIMEN Ordering Facility: [facility] Address: [address] [place] [address] Performed By: #### 2 4356-8 #### [facility] CLIA [id number] [address] Chloride [Moles/Vol] 99 mmol/L Normal 97-105 [facility] Comment on above: Order Comment: Speci men Type: URINE SPECIMEN Ordering Facility: [facility] Address: [address] [place] [address] Performed By: #### 2 4356-8 #### [facility] CLIA [id number] [address] CO2 [Moles/Vol] 23 mmol/L Normal 22-30 [facility] Comment on above: Order Comment: Speci men Type: URINE SPECIMEN Ordering Facility: [facility] Address: [address] [place] [address] Performed By: #### 2 4356-8 #### [facility] CLIA [id number] [address] Creatinine [Mass/Vol] 0.69 mg/dL Normal 0.58-0.96 [facility] Comment on above: Order Comment: Speci men Type: URINE SPECIMEN Ordering Facility: [facility] Address: [address] [place] [address] Performed By: #### 2 4356-8 #### [facility] CLIA [id number] [address] [place] [address] ESTIMATED GLOMERULAR FILTRATION RATE 89 mL/min/1.73m??? Normal >=60 [facility] Comment on above: Order Comment: Speci men Type: URINE SPECIMEN Ordering Facility: [facility] Address: [address] [place] [address] Result Comment: Lety mated Glomerular Filtration Rate (eGFR) is calculated using the 2020 CKD-EPI creatinine equation. This equation utilizes serum creatinine, sex, and age as parameters. The creatinine assay has traceable calibration to isotope dilution-mass spectrometry. Refer to KDIGO guidelines for clinical interpretation. In patients with unstable renal function, e.g. those with acute kidney injury, the eGFR may not accurately reflect actual GFR. Performed By: #### 2 4356-8 #### [facility] CLIA [id number] [address] [place] Glucose [Mass/Vol] 104 mg/dL High 74-99 [facility] Comment on above: Order Comment: Speci men Type: URINE SPECIMEN Ordering Facility: [facility] Address: [address] [address] Result Comment: The [place] Diabetes [employer] (ADA) provides guidance for cutoff values for fasting glucose and random glucose. The ADA defines fasting as no caloric intake for at least 8 hours. Fasting plasma glucose results between 100 to 125 mg/dL indicate increased risk for diabetes (prediabetes). Fasting plasma glucose results greater than or equal to 126 mg/dL meet the criteria for diagnosis of diabetes. In the absence of unequivocal hyperglycemia, results should be confirmed by repeat testing. In a patient with classic symptoms of hyperglycemia or hyperglycemic crisis, random plasma glucose results greater than or equal to 200 mg/dL meet the criteria for diagnosis of diabetes. Reference: Standards of Medical Care in Diabetes 2016, [place] [employer]. Diabetes Care. 2016.39(Suppl 1). Performed By: #### 2 4356-8 #### [facility] CLIA [id number] [address] STATES OF [facility] Potassium [Moles/Vol] 3.5 mmol/L Low 3.7-5.1 [facility] Comment on above: Order Comment: Speci men Type: URINE SPECIMEN Ordering Facility: [facility] Address: [address] [place] [address] Performed By: #### 2 4356-8 #### [facility] CLIA [id number] [address] [place] Urea nitrogen [Mass/Vol] 8 mg/dL Normal 7-21 [facility] Comment on above: Order Comment: Speci men Type: URINE SPECIMEN Ordering Facility: [facility] Address: [place] [address] Performed By: #### 2 4356-8 #### [facility] CLIA [id number] [address] [place] CBC panel Auto (Bld)on 03-21 Erythrocyte distribution width (RBC) [Ratio] 14.0 % Normal 11.5-15.0 [facility] Comment on above: Order Comment: Speci men Type: URINE SPECIMEN Ordering Facility: [facility] Address: [address] [place] [place] [address] Performed By: #### 3 5674-1, 71220-9 #### [facility] CLIA [id number] [address] OF [facility] Hematocrit (Bld) [Volume fraction] 37.4 % Normal 36.0-46.0 [facility] Comment on above: Order Comment: Speci men Type: URINE SPECIMEN Ordering Facility: [facility] Address: [address] [place] [address] Performed By: #### 3 5674-1, 37828-8 #### [facility] CLIA [id number] [address] [place] [address] [place] Hemoglobin (Bld) [Mass/Vol] 13.1 g/dL Normal 11.5-15. 5 [facility] Comment on above: Order Comment: Speci men Type: URINE SPECIMEN Ordering Facility: [facility] Address: [address] [place] [place] [address] Performed By: #### 3 5674-1, 43235-3 #### [facility] CLIA [id number] [address] [place] [address] [place] MCH (RBC) [Entitic mass] 31.6 pg Normal 26.0-34.0 [facility] Comment on above: Order Comment: Speci men Type: URINE SPECIMEN Ordering Facility: [facility] Address: [address] [place] [place] [address] Performed By: #### 3 5674-1, 46049-6 #### [facility] CLIA [id number] [address] [place] MCHC (RBC) [Mass/Vol] 35.0 g/dL Normal 30.5-36.0 [facility] Comment on above: Order Comment: Speci men Type: URINE SPECIMEN Ordering Facility: [facility] Address: [address] [place] [place] [address] Performed By: #### 3 5674-1, 53396-3 #### [facility] CLIA [id number] [address] MCV (RBC) [Entitic vol] 90.3 fL Normal 80.0-100.0 [facility] Comment on above: Order Comment: Speci men Type: URINE SPECIMEN Ordering Facility: [facility] Address: [address] [place] [address] Performed By: #### 3 5674-1, 82414-7 #### [facility] CLIA [id number] [address] Nucleated RBC (Bld) [#/Vol] 10*3/uL Normal <0.01 [facility] Comment on above: Order Comment: Speci men Type: URINE SPECIMEN Ordering Facility: [facility] Address: [address] [place] [address] Performed By: #### 3 5674-1, 53582-7 #### [facility] CLIA [id number] [address] Platelet mean volume (Bld) [Entitic vol] 10.4 fL Normal 9.0-12.7 [facility] Comment on above: Order Comment: Speci men Type: URINE SPECIMEN Ordering Facility: [facility] Address: [address] [place] [address] Performed By: #### 3 5674-1, 21055-9 #### [facility] CLIA [id number] [address] Platelets (Bld) [#/Vol] 198 10*3/uL Normal 150-400 [facility] Comment on above: Order Comment: Speci men Type: URINE SPECIMEN Ordering Facility: [facility] Address: [address] [place] [address] Performed By: #### 3 5674-1, 06682-7 #### [facility] CLIA [id number] [address] OF [facility] RBC (Bld) [#/Vol] 4.14 10*6/uL Normal 3.90-5.20 [facility] Comment on above: Order Comment: Speci men Type: URINE SPECIMEN Ordering Facility: [facility] Address: [address] Performed By: #### 3 5674-1, 91611-4 #### [facility] CLIA [id number] [address] OF [facility] WBC (Bld) [#/Vol] 6.23 10*3/uL Normal 3.70-11.00 [facility] Comment on above: Order Comment: Speci men Type: URINE SPECIMEN Ordering Facility: [facility] Address: [address] [place] [address] Performed By: #### 3 5674-1, 02735-6 #### [facility] CLIA [id number] [address] OF [facility] Magnesium SerPl-ncon 03-21 Magnesium [Mass/Vol] 1.8 mg/dL Normal 1.7-2.3 [facility] Comment on above: Order Comment: Speci men Type: URINE SPECIMEN Ordering Facility: [facility] Address: [address] [place] [address] Performed By: #### 2 4356-8 #### [facility] CLIA [id number] [address] [place] [address] OF [facility] NURSING PROGon 03-21-2023 NURSING PROG HNO ID: [id number] Author: Sandy Davis RN Service: Nursing Author Type: Registered Nurse Type: Nursing Progress Note Filed: 03/21/2023 4:43 PM Note Text: Transfer Note: PATIENT NAME: Reyes Ponce Patient Location: [place] [address] [address] [address] RN called report to [facility] on 5199 at 16:10. RN updated daughter Milena and Sue that patient will be moving to [facility]. is at bedside. Patient transferred by [facility] via wheelchair with at bedside at 16:30. Patient placed in bed with bed alarm on, and placed on 2lnc. Normal [facility] Osmolality Uron 03-21-2023 Osmolality (U) [Osmolality] 185 mosm/kg Normal 50-1200 [facility] Comment on above: Order Comment: Speci men Type: URINE SPECIMEN Ordering Facility: [facility] Address: [address] [place] [address] Performed By: #### 2 4356-8 #### [facility] CLIA [id number] 1 [place] [address] [place] Phosphate SerPl-mCncon 03-21 Phosphate [Mass/Vol] 3.9 mg/dL Normal 2.7-4.8 [facility] Comment on above: Order Comment: Speci men Type: URINE SPECIMEN Ordering Facility: [facility] Address: [address] [place] [address] Performed By: #### 2 4356-8 #### [facility] CLIA [id number] [address] [place] [address] [place] [facility] Prot/Creat Uron 03-21-2023 Protein/Creatinine (U) [Mass ratio] mg/g High <0.15 [facility] Comment on above: Order Comment: Speci men Type: URINE SPECIMEN Ordering Facility: [facility] Address: [address] [place] [address] Result Comment: Adul t Proteinuria Categories: <0.15 mg/mg is considered normal to mildly increased 0.15 - 0.50 mg/mg is considered moderately increased >0.50 mg/mg is considered severely increased KDIGO. (2013). KDIGO 2012 Clinical Practice Guideline for the Evaluation and Management of Chronic Kidney Disease. Official Journal of the International Society of Nephrology, 3(1), 1-150. Performed By: #### 3 5674-1, 41864-5 #### [facility] CLIA [id number] [address] [place] Protein/Creatinine (U) [Mass ratio]on 03-21-2023 Creatinine (U) [Mass/Vol] 15.7 mg/dL Low 42.2-237.9 [facility] Comment on above: Order Comment: Speci men Type: URINE SPECIMEN Ordering Facility: [facility] Address: [address] [place] [address] Performed By: #### 3 5674-1, 58963-4 #### [facility] CLIA [id number] [address] [place] Protein (U) [Mass/Vol] mg/dL Normal 0-20 [facility] Comment on above: Order Comment: Speci men Type: URINE SPECIMEN Ordering Facility: [facility] Address: [address] [place] [address] Performed By: #### 3 5674-1, 25126-4 #### [facility] CLIA [id number] 1 [place] [address] [place] Sodium SerPl-sCncon 03-21-20 23 Sodium [Moles/Vol] 132 mmol/L Low 136-144 [facility] Comment on above: Order Comment: Speci men Type: URINE SPECIMEN Ordering Facility: [facility] Address: [address] [place] [address] Performed By: #### 3 5674-1, 48600-2 #### [facility] CLIA [id number] 1 [place] [address] [place] Sodium [Moles/Vol] 131 mmol/L Low 136-144 [facility] Comment on above: Order Comment: Speci men Type: URINE SPECIMEN Ordering Facility: [facility] Address: [address] [place] [address] Performed By: #### 3 5674-1, 53892-2 #### [facility] CLIA [id number] 1 [place] [address] [place] Sodium [Moles/Vol] 133 mmol/L Low 136-144 [facility] Comment on above: Order Comment: Speci men Type: URINE SPECIMEN Ordering Facility: [facility] Address: [address] [place] [address] Performed By: #### 2 4356-8 #### [facility] CLIA [id number] [address] [place] [id number] [place] Sodium [Moles/Vol] 131 mmol/L Low 136-144 [facility] Comment on above: Order Comment: Speci men Type: URINE SPECIMEN Ordering Facility: [facility] Address: [place] [address] Performed By: #### 2 4356-8 #### [facility] CLIA [id number] [address] [place] [id number] [place] THERAPY NTon 03-21-2023 THERAPY NT HNO ID: [id number] Author: Saira Clark CCC-AUTO RENTAL CLERK Service: Speech/Swallow Author Type: Speech Language Pathologist Type: Therapy (PT/OT/Speech/Resp) Filed: 03/21/2023 11:14 AM Note Text: Speech Therapy Speech Evaluation SERVICE DATE: 03/21/2023 SERVICE TIME: 1010 to 1040 ROOM: [place] [address] IMPRESSION: Communication deficits identified: Cognitive deficits - mild deficit with concentration, immediate memory and problem solving. Nursing Recommendations: Allow for extended time for thought processing Recommended Discharge Disposition: Outpatient Speech Therapy Current Hospital Course: 03/19 CT head with small left inferior temporal convexity subdural hematoma witout mass effect. 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 Current Status Oral Hygiene: Clear, moist oral cavity Dentition: Retains Natural Dentition Current Feeding Method: Oral Current Diet Textures: Regular Consistency, Thin Liquids IDDSI Level 0 Current Level Of Communication: Verbal Current Management Of Secretions: Able to self-manage Oral Motor Exam: Within Functional Limits Cognition Cognitive Status: Within Functional Limits For Current Session Except Cognitive Deficits: Memory Deficits, Executive Function Deficit Memory Deficits: Immediate Executive Function Deficits: Problem Solving, Reasoning/Inferences The Cognitive Log (Cog-Log) is designed to be a quick quantitative measure of cognition status for use at the bedside with rehabilitation inpatients. It is intended for individuals who have achieved consistent accurate orientation, such as measured by the Orientation Log (O-Log). The Cog-Log can be used to document cognitive progress on a daily basis. All items are scored from 0 to 3 for a total possible score of 30. 3 = correct spontaneous response 2 = correct upon logical cueing (e.g., That was yesterday, so today must be...") 1 = correct upon multiple choice or phonemic cueing 0 = incorrect despite cueing, inappropriate response, or unable to respond Stimulus Response/Score Date 10/25 Time 09/24 Name of Hospital 10/25 Repeat Address 11/22 20-1 11/22 Months Reversed 10/25 30 Seconds 10/25 [facility] 10/25 Go/No-Go 10/25 Address Recall 09/24 Total Speech/Voice/Language Speech Production: Within Functional Limits - [place] accent, clear speech Expressive and Receptive Language: Within Functional Limits Except Auditory Comprehension Deficits: 1-Step Commands - (%): 100 2-Step Commands - (%): 75 Simple Yes/No Questions - (%): 100 Verbal Expression Deficits: Answers ?wh? questions - (%): 75 Automatic Speech - (%): 100 Confrontational Naming - (%): 100 Conversational Speech - (%): 100 Expressing Basic Needs/Wants - (%): 100 Expressing Complex Information - (%): 75 Reading Comprehension Deficits: Sentence (%): 100 Patient /Caregiver Goals: Improve Cognition Goals for Plan of Care: Goals: COGNITION: Patient will demonstrate knowledge of taught compensatory strategies for functional cognitive-linguistic skills, SPEECH / LANGUAGE: Patient will demonstrate knowledge of taught compensatory strategies for functional communication Cognitive Goals: Patient will increase concentration by completing tasks such as word finding skills at word level to 90% accuracy given minimal cues so that the patient may express basic ADL medical and social wants/needs. Patient will answer complex questions with 90% accuracy given minimal cues to effectively respond to caregivers inquiry pertaining to immediate medical/ADL care. Patient will improve functional auditory memory skills to 90% accuracy given minimal cues so that the patient may apply safety precautions for personal welfare. Patient will demonstrate use of complex problem solving skills with 90% accuracy given minimal cues so that the patient may participate in personal discharge planning. Speech Rehab Potential: Good Patient will be discontinued from speech therapy when no further skilled needs are identified in this setting. PLAN: ST Frequency: 2 Times Per Week Treatment Interventions: Cognitive-Linguistic Management Plan for next visit: Cognitive Linguistic Strategies Plan of Care Developed with: Patient, Caregiver Results and Recommendations Discussed With: Patient, Nurse TREATMENT INTERVENTIONS: Therapy Diagnosis: Unspecified symbolic dysfunctions Interventions Provided: Speech Language Eval (57684) $ Speech Language Eval (04260) Billed Units: 1 unit Training and education provided in: Cogni (more content not included)... Normal [facility] Urinalysis complete panel (U )on 03-21-2023 Bilirubin Ql (U) Negative Normal Negative [facility] Comment on above: Order Comment: Speci men Type: URINE SPECIMEN Order[facility] Facility: [facility] Address: [address] [place] [address] Performed By: #### 2 4356-8 #### [facility] CLIA [id number] [address] Clarity (Unsp spec) Clear Normal Clear [facility] Comment on above: Order Comment: Speci men Type: URINE SPECIMEN Ordering Facility: [facility] Address: [address] [place] [address] Performed By: #### 2 4356-8 #### [facility] CLIA [id number] [address] Color (U) Colorless Normal yellow [facility] Comment on above: Order Comment: Speci men Type: URINE SPECIMEN Ordering Facility: [facility] Address: [address] [place] [address] Performed By: #### 2 4356-8 #### [facility] CLIA [id number] [address] OF [facility] Glucose Test strip (U) [Mass/Vol] Negative Normal Trace, Negative [facility] Comment on above: Order Comment: Speci men Type: URINE SPECIMEN Ordering Facility: [facility] Address: [address] [place] [address] Performed By: #### 2 4356-8 #### [facility] CLIA [id number] [address] [place] Hemoglobin Ql (U) Negative Normal Negative, Trace [facility] Comment on above: Order Comment: Speci men Type: URINE SPECIMEN Ordering Facility: [facility] Address: [address] [place] [address] Performed By: #### 2 4356-8 #### [facility] CLIA [id number] [address] Ketones Ql (U) Negative Normal Negative, Trace [facility] Comment on above: Order Comment: Speci men Type: URINE SPECIMEN Ordering Facility: [facility] Address: [address] [place] [address] Performed By: #### 2 4356-8 #### [facility] CLIA [id number] [address] Leukocyte esterase Test strip Ql (U) 75 Elier/uL Abnormal Negative, 25 Elier/uL [facility] Comment on above: Order Comment: Speci men Type: URINE SPECIMEN Ordering Facility: [facility] Address: [address] [place] [address] Performed By: #### 2 4356-8 #### [facility] CLIA [id number] [address] Nitrite Ql (U) Negative Normal Negative [facility] Comment on above: Order Comment: Speci men Type: URINE SPECIMEN Ordering Facility: [facility] Address: [address] [place] [address] Performed By: #### 2 4356-8 #### [facility] CLIA [id number] [address] OF [place] pH (U) 6.0 [pH] Normal 5.0-8.0 [facility] Comment on above: Order Comment: Speci men Type: URINE SPECIMEN Ordering Facility: [facility] Address: [address] [place] [address] Performed By: #### 2 4356-8 #### [facility] CLIA [id number] [address] Protein (U) [Mass/Vol] Negative Normal Trace , Negative [facility] Comment on above: Order Comment: Speci men Type: URINE SPECIMEN Ordering Facility: [facility] Address: [address] [place] [address] Performed By: #### 2 4356-8 #### [facility] CLIA [id number] [address] RBC LM.HPF (Urine sed) [#/Area] 0-3 /HPF Normal 0-3 /HPF [facility] Comment on above: Order Comment: Speci men Type: URINE SPECIMEN Ordering Facility: [facility] Address: [address] [place] [address] Performed By: #### 2 4356-8 #### [facility] CLIA [id number] [address] Specific gravity (U) [Rel density] 1.004 Low 1.005-1.03 0 [facility] Comment on above: Order Comment: Speci men Type: URINE SPECIMEN Ordering Facility: [facility] Address: [address] [place] [address] Performed By: #### 2 4356-8 #### [facility] CLIA [id number] [address] Urobilinogen Ql (U) Normal Normal Negative [facility] Comment on above: Order Comment: Speci men Type: URINE SPECIMEN Ordering Facility: [facility] Address: [address] [place] [address] Performed By: #### 2 4356-8 #### [facility] CLIA [id number] [address] WBC LM.HPF (Urine sed) [#/Area] 0-5 /HPF Normal 0-5 /HPF [facility] Comment on above: Order Comment: Speci men Type: URINE SPECIMEN Ordering Facility: [facility] Address: [address] [place] [address] Performed By: #### 2 4356-8 #### [facility] CLIA [id number] [address] OF [place] Basic metabolic 2000 panelon 03-20-2023 Anion gap [Moles/Vol] 11 mmol/L Normal 9-18 [facility] Comment on above: Order Comment: Speci men Type: URINE SPECIMEN Ordering Facility: [facility] Address: [address] [place] [address] Performed By: #### 3 5674-1, 28944-6 #### [facility] CLIA [id number] [address] [place] Calcium [Mass/Vol] 8.7 mg/dL Normal 8.5-10.2 [facility] Comment on above: Order Comment: Speci men Type: URINE SPECIMEN Ordering Facility: [facility] Address: [address] [place] [address] Performed By: #### 3 5674-1, 56096-7 #### [facility] CLIA [id number] [address] [place] Chloride [Moles/Vol] 91 mmol/L Low 97-105 [facility] Comment on above: Order Comment: Speci men Type: URINE SPECIMEN Ordering Facility: [facility] Address: [address] [place] [address] Performed By: #### 3 5674-1, 26508-2 #### [facility] CLIA [id number] [address] [place] CO2 [Moles/Vol] 25 mmol/L Normal 22-30 [facility] Comment on above: Order Comment: Speci men Type: URINE SPECIMEN Ordering Facility: [facility] Address: [address] [place] [address] Performed By: #### 3 5674-1, 34465-6 #### [facility] CLIA [id number] [address] [place] Creatinine [Mass/Vol] 0.70 mg/dL Normal 0.58-0.96 [facility] Comment on above: Order Comment: Speci men Type: URINE SPECIMEN Ordering Facility: [facility] Address: [address] [place] [address] Performed By: #### 3 5674-1, 14111-2 #### [facility] CLIA [id number] [address] [place] [address] [place] ESTIMATED GLOMERULAR FILTRATION RATE 89 mL/min/1.73m??? Normal >=60 [facility] Comment on above: Order Comment: Speci men Type: URINE SPECIMEN Ordering Facility: [facility] Address: [address] [place] [address] Result Comment: Lety mated Glomerular Filtration Rate (eGFR) is calculated using the 2020 CKD-EPI creatinine equation. This equation utilizes serum creatinine, sex, and age as parameters. The creatinine assay has traceable calibration to isotope dilution-mass spectrometry. Refer to KDIGO guidelines for clinical interpretation. In patients with unstable renal function, e.g. those with acute kidney injury, the eGFR may not accurately reflect actual GFR. Performed By: #### 3 5674-1, 59928-7 #### [facility] CLIA [id number] [address] [place] [address] [place] Glucose [Mass/Vol] 102 mg/dL High 74-99 [facility] Comment on above: Order Comment: Speci men Type: URINE SPECIMEN Ordering Facility: [facility] Address: [address] [place] [address] Result Comment: The [place] Diabetes Association (ADA) provides guidance for cutoff values for fasting glucose and random glucose. The ADA defines fasting as no caloric intake for at least 8 hours. Fasting plasma glucose results between 100 to 125 mg/dL indicate increased risk for diabetes (prediabetes). Fasting plasma glucose results greater than or equal to 126 mg/dL meet the criteria for diagnosis of diabetes. In the absence of unequivocal hyperglycemia, results should be confirmed by repeat testing. In a patient with classic symptoms of hyperglycemia or hyperglycemic crisis, random plasma glucose results greater than or equal to 200 mg/dL meet the criteria for diagnosis of diabetes. Reference: Standards of Medical Care in Diabetes 2016, [place] [employer]. Diabetes Care. 2016.39(Suppl 1). Performed By: #### 3 5674-1, 39279-1 #### [facility] CLIA [id number] [address] [place] [address] [place] Potassium [Moles/Vol] 3.6 mmol/L Low 3.7-5.1 [facility] Comment on above: Order Comment: Speci men Type: URINE SPECIMEN Ordering Facility: [facility] Address: [address] [address] Performed By: #### 3 5674-1, 05717-5 #### [facility] CLIA [id number] [address] Sodium [Moles/Vol] 127 mmol/L Low 136-144 [facility] Comment on above: Order Comment: Speci men Type: URINE SPECIMEN Ordering Facility: [facility] Address: [address] [place] [address] Performed By: #### 3 5674-1, 56791-2 #### [facility] CLIA [id number] [address] Urea nitrogen [Mass/Vol] 13 mg/dL Normal 7-21 [facility] Comment on above: Order Comment: Speci men Type: URINE SPECIMEN Ordering Facility: [facility] Address: [address] [address] Performed By: #### 3 5674-1, 80767-4 #### [facility] CLIA [id number] [address] OF [facility] CBC panel Auto (Bld)on 03-20 Erythrocyte distribution width (RBC) [Ratio] 13.8 % Normal 11.5-15.0 [facility] Comment on above: Order Comment: Speci men Type: URINE SPECIMEN Ordering Facility: [facility] Address: [address] [address] Performed By: #### 3 5674-1, 17468-2 #### [facility] CLIA [id number] [address] Hematocrit (Bld) [Volume fraction] 32.8 % Low 36.0-46.0 [facility] Comment on above: Order Comment: Speci men Type: URINE SPECIMEN Ordering Facility: [facility] Address: [address] [address] Performed By: #### 3 5674-1, 60349-0 #### [facility] CLIA [id number] [address] OF [facility] Hemoglobin (Bld) [Mass/Vol] 11.1 g/dL Low 11.5-15. 5 [facility] Comment on above: Order Comment: Speci men Type: URINE SPECIMEN Ordering Facility: [facility] Address: [address] [place] [address] Performed By: #### 3 5674-1, 32644-2 #### [facility] CLIA [id number] [address] MCH (RBC) [Entitic mass] 31.3 pg Normal 26.0-34.0 [facility] Comment on above: Order Comment: Speci men Type: URINE SPECIMEN Ordering Facility: [facility] Address: [address] [place] [address] Performed By: #### 3 5674-1, 14064-5 #### [facility] CLIA [id number] [address] MCHC (RBC) [Mass/Vol] 33.8 g/dL Normal 30.5-36.0 [facility] Comment on above: Order Comment: Speci men Type: URINE SPECIMEN Ordering Facility: [facility] Address: [address] [place] [address] Performed By: #### 3 5674-1, 67667-5 #### [facility] CLIA [id number] [address] [place] [address] MCV (RBC) [Entitic vol] 92.4 fL Normal 80.0-100.0 [facility] Comment on above: Order Comment: Speci men Type: URINE SPECIMEN Ordering Facility: [facility] Address: [address] [place] [address] Performed By: #### 3 5674-1, 94314-2 #### [facility] CLIA [id number] [address] Nucleated RBC (Bld) [#/Vol] 10*3/uL Normal <0.01 [facility] Comment on above: Order Comment: Speci men Type: URINE SPECIMEN Ordering Facility: [facility] Address: [address] [address] Performed By: #### 3 5674-1, 89133-2 #### [facility] CLIA [id number] 1 [place] [address] [place] Platelet mean volume (Bld) [Entitic vol] 10.4 fL Normal 9.0-12.7 [facility] Comment on above: Order Comment: Speci men Type: URINE SPECIMEN Ordering Facility: [facility] Address: [address] [place] [address] Performed By: #### 3 5674-1, 28461-6 #### [facility] CLIA [id number] [address] [place] Platelets (Bld) [#/Vol] 188 10*3/uL Normal 150-400 [facility] Comment on above: Order Comment: Speci men Type: URINE SPECIMEN Ordering Facility: [facility] Address: [address] [place] [address] Performed By: #### 3 5674-1, 73139-4 #### [facility] CLIA [id number] 1 [place] [address] [place] RBC (Bld) [#/Vol] 3.55 10*6/uL Low 3.90-5.20 [facility] Comment on above: Order Comment: Speci men Type: URINE SPECIMEN Ordering Facility: [facility] Address: [address] [place] [address] Performed By: #### 3 5674-1, 17495-7 #### [facility] CLIA [id number] 1 [place] [address] [place] WBC (Bld) [#/Vol] 6.26 10*3/uL Normal 3.70-11.00 [facility] Comment on above: Order Comment: Speci men Type: URINE SPECIMEN Ordering Facility: [facility] Address: [place] [address] Performed By: #### 3 5674-1, 94767-9 #### [facility] [id number] [address] [place], [place] [id number] [employer] [facility] CONSULTon 03-20-2023 CONSULT HNO ID: [id number] Author: Shannon Castillo MD Service: Nephrology Author Type: Physician Type: Consults Filed: 03/20/2023 3:37 PM Note Text: CONSULT: NEPHROLOGY SERVICE SERVICE DATE: 03/20/2023 SERVICE TIME: 3:30 PM REASON FOR CONSULT: I am asked to see this patient in consultation for my opinion regarding acute hyponatremia. My recommendations will be communicated by way of shared medical record. REQUESTING PHYSICIAN: PRIMARY CARE PHYSICIAN: North Cuellar MD Subjective CHIEF COMPLAINT: Brain bleed HPI: Ms. Ponce is a 78 year old female with normal underlying serum sodium as of 36 hours ago. Patient came over 36 hours ago after mechanical fall and was diagnosed with subdural bleeding. She has received platelets as well as DDAVP to stop further extravasation. Her sodium on admission was normal at 142 but within 36 hours it fell down to 121. Urine sodium was high at 200. As of now she has no acute symptoms of hyponatremia such as headache, dizziness, seizure, altered mental status etc.. She has no signs of fluid overload. He has been started on Keppra and also will be receiving citalopram. 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 George REMOVAL JENNIFER VAD W PORT/PUMP 11-07-08 TONSILLECTOMY HX 1973 TOTAL ABDOM HYSTERECTOMY Hysterectomy, JOAQUINA TUNNEL VAD W SUB Q PORT >=5 06-10-08 left IJ FAMILY HISTORY Problem Relation Age of Onset other (Other) Mother at age 52 of disease of endocrine system Heart Father PA Stroke Father Coronary Artery Disease Son age 47 PA Alcohol/Drug Son cirrhosis Social History Tobacco Use Smoking status: Never Smokeless tobacco: Never Substance Use Topics Alcohol use: No Drug use: No MEDICATIONS: Prior to Admission Medications polyethylene glycol 3350 (MIRALAX) 17 gram/dose powder, Take 17 g by mouth as directed., Disp: 1 Bottle, Rfl: 1 ubidecarenone Q-10 (CO Q-10) 10 mg cap, Take 10 mg by mouth once daily., Disp: , Rfl: Current Facility-Administered Medications Medication Dose Route Frequency [...] 2.5 mg INHALATION q 6 H PRN sodium chloride 1 g tab(s) 1 g ORAL TID senna-docusate 8.6-50 mg 1 tablet (SENNA-S) 1 tablet ORAL BID NaCl 0.9% iv infusion 75 mL/hr INTRAVENOUS CONTINUOUS sodium chloride 2 % HYPERTONIC INTRAVENOUS CONTINUOUS furosemide 20 mg injection (LASIX) 20 mg INTRAVENOUS ONCE ALLERGIES Allergen Reactions Ambien [Zolpidem Ta* hallucinations Bactrim [Sulfametho* Rash Codeine tight band around heand AND couldn't breath" Darvocet-N 100 [Pro* Intolerance severe nightmares Hytrin [Terazosin H* swelling of face Iodine Other: See Comments "face swelling" after used in a scan but uses betadine and iodine and eats shellfish without problems. Has had iodine tablets in the past without issue Neurontin [Gabapent* Mental Status Change Vicodin [Hydrocodon* Intolerance very bad nightmares REVIEW OF SYSTEMS: 14 point comprehensive system review was performed, all positives as well as pertinent negatives are reflected in current HANDP Objective PHYSICAL EXAM: BP 162/105 Pulse 64 Temp 36.5 ?C (97.7 ?F) (Oral) Resp 16 Ht 157.5 cm (5' 2") Wt 70.3 kg (154 lb 15.7 oz) SpO2 100% BMI 28.35 kg/m? No intake or output data in the 24 hours ending 03/20/23 1530 Constitutional: No acute distress, Responsive, Normal habitus, and Well-nourished Eyes: Conjunctiva clear and PERRL Ear, Nose, and Throat: Hearing normal, Lips normal, and Den (more content not included)... Normal [facility] Creatinine Unsp time (U) [Ma ss/Vol]on 03-20-2023 Creatinine (U) [Mass/Vol] 38.2 mg/dL Low 42.2-237.9 [facility] Comment on above: Order Comment: Speci men Type: URINE SPECIMEN Ordering Facility: [facility] Address: [address] [place] [id number] Performed By: #### 3 5674-1, 16845-3 #### [facility] CLIA [id number] [address] [place] [address] [place] NURSING PROGon 03-20-2023 NURSING PROG HNO ID: [id number] Author: Triston Arora RN Service: ? Author Type: Registered Nurse Type: Nursing Progress Note Filed: 03/20/2023 6:41 PM Note Text: Report called to 4800 (Room 4812). Nurse said that the room is still being clean and will call when the room is ready Normal [facility] NURSING PROG HNO ID: [id number] Author: Triston Arora RN Service: ? Author Type: Registered Nurse Type: Nursing Progress Note Filed: 03/20/2023 6:03 PM Note Text: Order received to transfer patient to ICU. Awaiting a bed in ICU. Patient and family made aware of the transfer Normal [facility] NURSING PROG HNO ID: [id number] Author: Triston Arora RN Service: ? Author Type: Registered Nurse Type: Nursing Progress Note Filed: 03/20/2023 5:39 PM Note Text: General Surgery called back and after explaining to them about the situation. They will get a hold of Trauma. Awaiting directions Normal [facility] NURSING PROG HNO ID: [id number] Author: Triston Arora RN Service: ? Author Type: Registered Nurse Type: Nursing Progress Note Filed: 03/20/2023 5:31 PM Note Text: Nephrology put an order in for Hypertonic 2 % Sodium Chloride solution intravenous. Further checking with floor clerk and pharmacy confirmed that we are unable to hang the solution on a Medr floor. Tried texting Shannon Castillo to no avail. Tried calling the Nephrology number and was they were not part of the care team. Normal [facility] Sodium ?Tm Ur-sCncon 023 Sodium Unsp time (U) [Moles/Vol] 204 mmol/L Normal 14-216 [facility] Comment on above: Order Comment: Speci men Type: URINE SPECIMEN Ordering Facility: [facility] Address: [address] [place] [address] Performed By: #### 3 5674-1, 39347-3 #### [facility] CLIA [id number] [address] [place] [address] [place] [facility] Sodium SerPl-sCncon 03-20-20 23 Sodium [Moles/Vol] 119 mmol/L Low 136-144 [facility] Comment on above: Order Comment: Speci men Type: URINE SPECIMEN Ordering Facility: [facility] Address: [address] [place] [address] Performed By: #### 2 4356-8 #### [facility] CLIA [id number] [address] STATES OF [facility] Sodium [Moles/Vol] 121 mmol/L Low 136-144 [facility] Comment on above: Order Comment: Speci men Type: URINE SPECIMEN Ordering Facility: [facility] Address: [place] [address] Performed By: #### 2 4356-8 #### [facility] CLIA [id number] [address] [place] THERAPY NTon 03-20-2023 THERAPY NT HNO ID: [id number] Author: Layo Avalos, PT Service: Physical Therapy Author Type: Physical Therapist Type: Therapy (PT/OT/Speech/Resp) Filed: 03/20/2023 1:02 PM Note Text: Physical Therapy SERVICE DATE: 03/20/2023 SERVICE TIME: 1030 to 1049 ROOM: [address] [address] Recommended Discharge Disposition: Outpatient Physical Therapy Recommended Discharge Disposition Comments: Pt can return home due to safe level of junctional mobility. Pt would benefit from skilled therapy at an outpatient setting to increase strength/blance to decrease risk of falls. OT recommends outpatient therapies. Anticipated Discharge Needs: Undetermined Physical Assist at Home for: Cleaning, Meals, Laundry, Transportation, Shopping, Medication Management Supervision at Home due to: Decreased safety awareness PT 6 Clicks Score: 22 Precautions/Activity Restrictions: Fall Risk, Bed/Chair Alarm Current Hospital Course: 78 y/o female presetned to hospital on 03/18/2023 post fall. Pt with recent CVA 2 weeks ago and was placed on plavix. Imaging demonstrated small left inferior temporal convexity/tentorial hyperdense subdural hematoma withoutt significant mass effect Reason for Hospital Admission: fall Relevant Past Medical History: CVA Physical Therapy Problem List: Pain, Safety Deficits, Decreased Strength, Functional Mobility Impairment Treatment Interventions: Self Care / Home Management, Strengthening, Balance Training, Education Home Environment Patient Lives With: Spouse Assistance Available: 24-Hour Entry To Home: No Stairs Number Of Stairs To Bed/Bath: 0 Tub/Shower Type: tub shower Laundry: on main floor Equipment Owned: Cane Prior Functional Level: Within Functional Limits Prior Functional Level Comments: Pt reports that she was previously independent with functional mobility with use of cane. Reports independence with ADL's and IADL's. Lives at home with her . States that she felt she was getting stronger with therapy prior to admission. Baseline Cognition: Oriented to self, Oriented to place, Oriented to situation, Oriented to time CURRENT FUNCTIONAL STATUS: Most recent performance Current Functional Mobility Assist Level Additional Information Rolling Independent Supine to Sit Independent Sit to Supine Independent Scooting Independent Sit to Stand Contact Guard Assistance Stand to Sit Contact Guard Assistance Bed to Chair Toilet/Commode Gait Contact Guard Assistance Gait Device: Cane Gait Distance (feet): 250' Stairs Curb Step Car Transfer Blank dawson indicate activity not attempted General Deviations/Observation s: Melissa decreased, Lateral sway increased, Loss of Balance, Shuffling Gait, Step length decreased Range of Motion: WFL Strength: WFL JH-HLM: 8: Walk 250 feet or more Learning/Educational Needs: Discharge Plan, Plan of Care, Safety Mini Cog Score: 0 (03/20/23 0830) Goals for Plan of Care: Patient/Caregiver Goals: Go Home Able to Perform HEP with: Independent Goal: Pt has no LOB while ambulating independently Goal: Pt increase strength to 4+/5 to decrease risk of falls Rehab Potential: Good Patient will be discontinued from Physical Therapy when no further skilled needs are identified in this setting. PLAN: PT Frequency: 2 Times Per Week (1-2 Times per week) Plan of Care developed with: Patient TREATMENT INTERVENTIONS: Therapy Diagnosis: Decreased activities of daily living (ADL), Muscle Weakness (generalized), Abnormalities of gait and mobility-other, Difficulty walking-musculoskeleta l Interventions Provided: Evaluation Pt was OOB in bathroom at start of session. Pt tolerated session well. She was able to ambulate 250' with a schumacher and CGA. During ambulation, she did have several instances of LOB but self corrected. Pt would benefit from outpatient skilled therapies due to decreased balance and to increase strength to decrease the risk of future falls. OT also recommends outpatient therapies. Pt can return home once medically cleared. $ Evaluation-Low (24697) Billed Units: 1 unit Timed Code Treatment (minutes): 0 Skilled Treatment Time (minutes): 19 Please see discipline specific clinical documentation flowsheet for complete details for this therapy evaluation/treatment. SIGNATURE: Ellen Mariam, SPT PATIENT NAME: Reyes Ponce DATE: March 20, 2023 TIME: 11:20 AM As the licensed Therapist, I was present and guided the care of the patient for the entire session on this date. I reviewed and agree with the documentation corresponding to this therapy visit. SIGNATURE: Layo Avalos, PT DATE: March 20, 2023 TIME: 1:02 PM Normal [facility] THERAPY NT HNO ID: [id number] Author: Maria L Marquis, OTR/L Service: Occupational Therapy Author Type: Occupational Therapist Type: Therapy (PT/OT/Speech/Resp) Filed: 03/20/2023 11:16 AM Note Text: Occupational Therapy Evaluation SERVICE DATE: 03/20/2023 SERVICE TIME: 826 to 856 ROOM: [id number] Recommended Discharge Disposition: Outpatient Occupational Therapy Recommended Discharge Disposition Comments: Pt is currently functioning just below functional baseline. Demonstrates impairments in safety, judgement, insight, and cog awareness. Would benefit from outpatient OT. Anticipated Discharge Needs: Physical Assist at Home, Supervision at Home Physical Assist at Home for: Cleaning, Meals, Laundry, Transportation, Shopping, Medication Management Supervision at Home due to: Decreased safety awareness Recommended Discharge Equipment: Shower Chair OT 6 Clicks Score: 18 Ms. Ponce was seen this morning for an occupational therapy evaluation. Pt was drowsy at beginning of session. OT facilitated optimal room setup and frequent reorientation as pt stated that it was September. Anticipate that pt was tired 2/2 to slightly increased alertness once up in bathroom. Demonstrated slightly impaired safety awareness, insight, and judgement. Would benefit from outpatient therapy. Precautions/Activity Restrictions: Fall Risk, Bed/Chair Alarm Current Hospital Course: 78 y/o female presetned to hospital on 03/18/2023 post fall. Pt with recent CVA 2 weeks ago and was placed on plavix. Imaging demonstrated small left inferior temporal convexity/tentorial hyperdense subdural hematoma withoutt significant mass effect Reason for Hospital Admission: fall Relevant Past Medical History: CVA Response to Therapy Interventions: Good Participation in Activities, Pain, Low Activity Tolerance, Needs Frequent Redirection or Reinstruction, Requires Additional Time to Complete Activities Continued Skilled Needs Due to: Cognitive Deficits, Safety Concerns, Functional Impairment Occupational Therapy Problem List: Cognitive Deficit, Safety Deficits, Decreased Activity Tolerance, Impaired Self Care, Decreased Strength, Functional Mobility Impairment, Balance Impaired Cognition/Communicatio n Deficits Orientation Deficits: Not oriented to Time Responsiveness: Awake Follows Commands: 1-step Commands, Cueing Needed Cueing to Follow Commands: Minimum Attention Deficits: Distractible Executive Function Deficits: Safety Awareness, Judgement, Sequencing, Problem Solving Sequencing Deficit: Moderate impairment Judgement Deficit: Moderate impairment Problem Solving Deficit: Moderate impairment Safety Awareness Deficit: Moderate impairment Cognitive Clinical Tests and Screens: Mini Cog, 4AT Screening (judgement activity) Clock Draw Test: 0-Abnormal Word Recall: 0-recalled words Mini Cog Score: 0 Facilitated completion of the Mini-Cog during session. The Mini-Cog is a quick screening for early dementia detection. The assessment is made up of two portions including a 3-item word recall and a clock drawing portion. Scoring is based on the 3-word recall (3 points) and the accuracy of clock drawing (2 points). A total score of 3, 4, or 5 indicates lower likelihood of dementia but does not rule out some degree of cognitive impairment. Patient scored a 0/5 at this date. Following screening, occupational therapist reviewed assessment with patient. 4AT Screening Assess alertness (ask patient to state their name and address): Normal (fully alert, but not agitated, throughout assessment) Ask patient: age, date of , current year, and current location: 1 mistake Ask patient to "tell me the months of the year backwards order, starting with August": Starts but states <7 months / refuses to start Acute change or fluctuating mental status: No 4AT Score: 2 Delirium Positive/Negative: Negative Facilitated safety situation/judgement questions: 1. What would you do if you smell gas in the house? Call [employer]. Cued to get out of house and call 911 if strong smell 2. What would you do if a fire starts on the stove? I have no clue. Cued to get out of house if no fire extinguisher and call 911 3. What would you do if a family member is ill? Take them to ER 4. What would you do if a tornado is sighted in your area? Go to basement 5. What would you do if your cut your finger? Take to ER. Cueing to apply pressure. 6. What would you do if the toilet overflows? Get a plunger. Cueing to turn off water. 7. What would you do if someone breaks into the house when you are home? 8. What would you do if your car fills up with smoke while you are driving? open shank coverer. Cueing to get out of car. 9. What would you do if you see flashing red lights in your rear view mirror? open shank coverer. 10. What would you do if you were falsely accused of shoplifting? Prove that I did not 11. What would you do if you ate in a r (more content not included)... Normal [facility] Basic metabolic 2000 panelon 03-19-2023 Anion gap [Moles/Vol] 12 mmol/L Normal 9-18 [facility] Comment on above: Order Comment: Speci men Type: URINE SPECIMEN Ordering Facility: [facility] Address: [address] [place] [address] Performed By: #### 3 5674-1, 57055-4 #### [facility] CLIA [id number] [address] [place] [address] [place] Calcium [Mass/Vol] 8.9 mg/dL Normal 8.5-10.2 [facility] Comment on above: Order Comment: Speci men Type: URINE SPECIMEN Ordering Facility: [facility] Address: [address] [place] [address] Performed By: #### 3 5674-1, 54375-8 #### [facility] CLIA [id number] [address] [place] [address] [place] Chloride [Moles/Vol] 104 mmol/L Normal 97-105 [facility] Comment on above: Order Comment: Speci men Type: URINE SPECIMEN Ordering Facility: [facility] Address: [address] [place] [address] Performed By: #### 3 5674-1, 29874-4 #### [facility] CLIA [id number] [address] [place] [address] [place] CO2 [Moles/Vol] 26 mmol/L Normal 22-30 [facility] Comment on above: Order Comment: Speci men Type: URINE SPECIMEN Ordering Facility: [facility] Address: [address] [address] Performed By: #### 3 5674-1, 18244-6 #### [facility] CLIA [id number] [address] OF [facility] Creatinine [Mass/Vol] 0.80 mg/dL Normal 0.58-0.96 [facility] Comment on above: Order Comment: Speci men Type: URINE SPECIMEN Ordering Facility: [facility] Address: [address] [address] Performed By: #### 3 5674-1, 47389-0 #### [facility] CLIA [id number] [address] ESTIMATED GLOMERULAR FILTRATION RATE 76 mL/min/1.73m??? Normal >=60 [facility] Comment on above: Order Comment: Speci men Type: URINE SPECIMEN Ordering Facility: [facility] Address: [address] [place] [address] Result Comment: Lety mated Glomerular Filtration Rate (eGFR) is calculated using the 2020 CKD-EPI creatinine equation. This equation utilizes serum creatinine, sex, and age as parameters. The creatinine assay has traceable calibration to isotope dilution-mass spectrometry. Refer to KDIGO guidelines for clinical interpretation. In patients with unstable renal function, e.g. those with acute kidney injury, the eGFR may not accurately reflect actual GFR. Performed By: #### 3 5674-1, 42755-4 #### [facility] CLIA [id number] [address] [place] Glucose [Mass/Vol] 133 mg/dL High 74-99 [facility] Comment on above: Order Comment: Speci men Type: URINE SPECIMEN Ordering Facility: [facility] Address: [place] [address] Result Comment: The [place] Diabetes [employer] (ADA) provides guidance for cutoff values for fasting glucose and random glucose. The ADA defines fasting as no caloric intake for at least 8 hours. Fasting plasma glucose results between 100 to 125 mg/dL indicate increased risk for diabetes (prediabetes). Fasting plasma glucose results greater than or equal to 126 mg/dL meet the criteria for diagnosis of diabetes. In the absence of unequivocal hyperglycemia, results should be confirmed by repeat testing. In a patient with classic symptoms of hyperglycemia or hyperglycemic crisis, random plasma glucose results greater than or equal to 200 mg/dL meet the criteria for diagnosis of diabetes. Reference: Standards of Medical Care in Diabetes 2016, [place] [employer]. Diabetes Care. 2016.39(Suppl 1). Performed By: #### 3 5674-1, 90609-4 #### [facility] CLIA [id number] [address] [place] Potassium [Moles/Vol] 3.1 mmol/L Low 3.7-5.1 [facility] Comment on above: Order Comment: Speci men Type: URINE SPECIMEN Ordering Facility: [facility] Address: [address] [place] [address] Performed By: #### 3 5674-1, 43264-1 #### [facility] CLIA [id number] [address] STATES [facility] Sodium [Moles/Vol] 142 mmol/L Normal 136-144 [facility] Comment on above: Order Comment: Speci men Type: URINE SPECIMEN Ordering Facility: [facility] Address: [address] [place] [address] Performed By: #### 3 5674-1, 46273-8 #### [facility] CLIA [id number] [address] STATES [facility] Urea nitrogen [Mass/Vol] 17 mg/dL Normal 7-21 [facility] Comment on above: Order Comment: Speci men Type: URINE SPECIMEN Ordering Facility: [facility] Address: [address] [place] [address] Performed By: #### 3 5674-1, 97678-3 #### [facility] CLIA [id number] [address] [place] CBC panel Auto (Bld)on 03-19 Erythrocyte distribution width (RBC) [Ratio] 14.4 % Normal 11.5-15.0 [facility] Comment on above: Order Comment: Speci men Type: URINE SPECIMEN Ordering Facility: [facility] Address: [address] [place] [address] Performed By: #### 3 5674-1, 35131-1 #### [facility] CLIA [id number] [address] OF [facility] Hematocrit (Bld) [Volume fraction] 33.9 % Low 36.0-46.0 [facility] Comment on above: Order Comment: Speci men Type: URINE SPECIMEN Ordering Facility: [facility] Address: [address] [place] [address] Performed By: #### 3 5674-1, 18508-2 #### [facility] CLIA [id number] [address] OF [facility] Hemoglobin (Bld) [Mass/Vol] 11.4 g/dL Low 11.5-15. 5 [facility] Comment on above: Order Comment: Speci men Type: URINE SPECIMEN Ordering Facility: [facility] Address: [address] [place] [address] Performed By: #### 3 5674-1, 12263-9 #### [facility] CLIA [id number] [address] STATES OF [facility] MCH (RBC) [Entitic mass] 31.4 pg Normal 26.0-34.0 [facility] Comment on above: Order Comment: Speci men Type: URINE SPECIMEN Ordering Facility: [facility] Address: [address] [place] [address] Performed By: #### 3 5674-1, 28425-8 #### [facility] CLIA [id number] [address] STATES OF [facility] MCHC (RBC) [Mass/Vol] 33.6 g/dL Normal 30.5-36.0 [facility] Comment on above: Order Comment: Speci men Type: URINE SPECIMEN Ordering Facility: [facility] Address: [address] [place] [address] Performed By: #### 3 5674-1, 27416-8 #### [facility] CLIA [id number] [address] MCV (RBC) [Entitic vol] 93.4 fL Normal 80.0-100.0 [facility] Comment on above: Order Comment: Speci men Type: URINE SPECIMEN Ordering Facility: [facility] Address: [address] [place] [address] Performed By: #### 3 5674-1, 44169-4 #### [facility] CLIA [id number] [address] Nucleated RBC (Bld) [#/Vol] 10*3/uL Normal <0.01 [facility] Comment on above: Order Comment: Speci men Type: URINE SPECIMEN Ordering Facility: [facility] Address: [address] [place] [address] Performed By: #### 3 5674-1, 80476-0 #### [facility] CLIA [id number] [address] Platelet mean volume (Bld) [Entitic vol] 10.4 fL Normal 9.0-12.7 [facility] Comment on above: Order Comment: Speci men Type: URINE SPECIMEN Ordering Facility: [facility] Address: [address] [place] [address] Performed By: #### 3 5674-1, 28044-8 #### [facility] CLIA [id number] [address] Platelets (Bld) [#/Vol] 190 10*3/uL Normal 150-400 [facility] Comment on above: Order Comment: Speci men Type: URINE SPECIMEN Ordering Facility: [facility] Address: [address] [place] [address] Performed By: #### 3 5674-1, 31065-6 #### [facility] CLIA [id number] [address] OF [place] RBC (Bld) [#/Vol] 3.63 10*6/uL Low 3.90-5.20 [facility] Comment on above: Order Comment: Speci men Type: URINE SPECIMEN Ordering Facility: [facility] Address: [address] [place] [address] Performed By: #### 3 5674-1, 67147-0 #### [facility] CLIA [id number] [address] [place] WBC (Bld) [#/Vol] 7.52 10*3/uL Normal 3.70-11.00 [facility] Comment on above: Order Comment: Speci men Type: URINE SPECIMEN Ordering Facility: [facility] Address: [address] [place] [address] Performed By: #### 3 5674-1, 94725-4 #### [facility] CLIA [id number] [address] [place] Erythrocyte distribution width (RBC) [Ratio] 14.4 % Normal 11.5-15.0 [facility] Comment on above: Order Comment: Speci men Type: URINE SPECIMEN Ordering Facility: [facility] Address: [address] [place] [address] Performed By: #### 2 4356-8 #### [facility] CLIA [id number] [address] [place] Hematocrit (Bld) [Volume fraction] 37.0 % Normal 36.0-46.0 [facility] Comment on above: Order Comment: Speci men Type: URINE SPECIMEN Ordering Facility: [facility] Address: [address] [place] [address] Performed By: #### 2 4356-8 #### [facility] CLIA [id number] [address] [place] Hemoglobin (Bld) [Mass/Vol] 12.1 g/dL Normal 11.5-15. 5 [facility] Comment on above: Order Comment: Speci men Type: URINE SPECIMEN Ordering Facility: [facility] Address: [address] [place] [address] Performed By: #### 2 4356-8 #### [facility] CLIA [id number] [address] MCH (RBC) [Entitic mass] 30.6 pg Normal 26.0-34.0 [facility] Comment on above: Order Comment: Speci men Type: URINE SPECIMEN Ordering Facility: [facility] Address: [address] [place] [address] Performed By: #### 2 4356-8 #### [facility] CLIA [id number] [address] MCHC (RBC) [Mass/Vol] 32.7 g/dL Normal 30.5-36.0 [facility] Comment on above: Order Comment: Speci men Type: URINE SPECIMEN Ordering Facility: [facility] Address: [address] [place] [address] Performed By: #### 2 4356-8 #### [facility] CLIA [id number] [address] MCV (RBC) [Entitic vol] 93.7 fL Normal 80.0-100.0 [facility] Comment on above: Order Comment: Speci men Type: URINE SPECIMEN Ordering Facility: [facility] Address: [address] [place] [address] Performed By: #### 2 4356-8 #### [facility] CLIA [id number] [address] Nucleated RBC (Bld) [#/Vol] 10*3/uL Normal <0.01 [facility] Comment on above: Order Comment: Speci men Type: URINE SPECIMEN Ordering Facility: [facility] Address: [address] [place] [address] Performed By: #### 2 4356-8 #### [facility] CLIA [id number] [address] Platelet mean volume (Bld) [Entitic vol] 10.5 fL Normal 9.0-12.7 [facility] Comment on above: Order Comment: Speci men Type: URINE SPECIMEN Ordering Facility: [facility] Address: [address] [place] [address] Performed By: #### 2 4356-8 #### [facility] CLIA [id number] [address] Platelets (Bld) [#/Vol] 186 10*3/uL Normal 150-400 [facility] Comment on above: Order Comment: Speci men Type: URINE SPECIMEN Ordering Facility: [facility] Address: [address] [place] [address] Performed By: #### 2 4356-8 #### [facility] CLIA [id number] [address] RBC (Bld) [#/Vol] 3.95 10*6/uL Normal 3.90-5.20 [facility] Comment on above: Order Comment: Speci men Type: URINE SPECIMEN Ordering Facility: [facility] Address: [address] [place] [address] Performed By: #### 2 4356-8 #### [facility] CLIA [id number] [address] WBC (Bld) [#/Vol] 7.60 10*3/uL Normal 3.70-11.00 [facility] Comment on above: Order Comment: Speci men Type: URINE SPECIMEN Ordering Facility: [facility] Address: [address] [place] [address] Performed By: #### 2 4356-8 #### [facility] CLIA [id number] [address] CONSULTon 03-19-2023 CONSULT HNO ID: [id number] Author: Darrick Carlson PA-C Service: Neurosurgery Author Type: Physician Vmware Systems Administrator Type: Consults Filed: 03/19/2023 2:20 PM Note Text: Attestation signed by Justin Street MD at 03/19/2023 3:02 PM I Agree with the note below. Please see my consult note with Dr. Pat. Justin Street MD CONSULT: NEUROSURGERY SERVICE Patient Name: Reyes Ponce Date of : 1945 SERVICE DATE: 03/19/2023 SERVICE TIME: 9:31 AM REASON FOR CONSULT: [facility] PHYSICIAN: North Cuellar MD CHIEF COMPLAINT: Fall HISTORY OF PRESENT ILLNESS : Mrs. Ponce is a 78 year old female with PMHx of R breast cancer s/p lumpectomy, valvular heart disease, appendectomy, cholecystectomy, JOAQUINA, and recent CVA (2 weeks ago) on Plavix admitted following [facility] emergency visit yesterday, 03/18/2023, following fall. Patient reports ambulating around living room at home yesterday when she tripped and fell forward, striking her face and head. She is unable to recall why she tripped and reports she may have caught her foot on the couch. Patient reports that fall was unwitnessed, although her was home with her. She denies LOC. Patient admits to complaints of headache, mostly to the right side of the head and R facial bruising. She reports that headache has improved with Tylenol use since admission. Patient admits to chronic right upper and right lower extremity weakness following CVA 2 weeks ago, improved since prior hospital discharge. She denies new or worsening focal motor weakness or left sided weakness. She denies paresthesias, changes in hearing, or visual disturbance. PAST MEDICAL HISTORY Diagnosis Date Dilated aortic [...] U/s NEEDLE CORE BX OUTER RIGHT BREAST BX/REMV,LYMPH NODE,DEEP AXILL 05/02/08 COLONOSCOP W/ OR W/O [facility] SPEC 07-06-05 Repeat in IDENTIFY SENTINEL NODE 05/02/08 right LAPAROSCOPIC CHOLEYCYSTECTOMY Cholecystectomy, lap MASTECTOMY,PARTIAL, WITH AXILLARY LYMPHADENECTOMY 05/02/08 PAST SURGICAL HISTORY OF 07/11/2011 Breast reconstruction-Dr. George REMOVAL JENNIFER VAD W PORT/PUMP 11-07-08 TONSILLECTOMY HX 1972 TOTAL ABDOM HYSTERECTOMY Hysterectomy, JOAQUINA TUNNEL VAD W SUB Q PORT >=5 06-10-08 left IJ FAMILY HISTORY Problem Relation Age of Onset other (Other) Mother at age 52 of disease of endocrine system Heart Father [place] Stroke Father Coronary Artery Disease Son age 47 PA Alcohol/Drug Son cirrhosis ALLERGIES Allergen Reactions Ambien [Zolpidem Ta* hallucinations Bactrim [Sulfametho* Rash Codeine tight band around heand AND couldn't breath" Darvocet-N 100 [Pro* Intolerance severe nightmares Hytrin [Terazosin H* swelling of face Iodine Other: See Comments "face swelling" after used in a scan but uses betadine and iodine and eats shellfish without problems. Has had iodine tablets in the past without issue Neurontin [Gabapent* Mental Status Change Vicodin [Hydrocodon* Intolerance very bad nightmares Current Facility-Administered Medications Medication Dose Route Frequency Provider Last Rate Last Admin levETIRAcetam 500 mg tab(s) (KEPPRA) 500 mg ORAL BID Carlo Correia DO 500 mg at 03/19/23 0845 NaCl 0.9% iv infusion 100 mL/hr INTRAVENOUS CONTINUOUS Nidia Ram MD 100 mL/hr at 03/19/23 0253 100 mL/hr at 03/19/23 0253 ondansetron 4 mg tab(s) (ZOFRAN) 4 mg ORAL q 6 H PRN Nidia Ram MD Or ondansetron (PF) 4 mg injection (ZOFRAN) 4 mg INTRAVENOUS q 6 H PRN Nidia Ram MD acetaminophen 1,000 mg tab(s) (TYLENOL) 1,000 mg ORAL q 6 H Nidia Ram MD 1,000 mg at 03/19/23 0603 oxyCODONE IR 5 mg tab(s) (ROXICODONE) 5 mg ORAL q 4 H PRN Nidia Ram MD fentaNYL 50 mcg/mL 50 mcg injection (SUBLIMAZE) 50 mcg INTRAVENOUS q 2 H PRN Nidia Ram MD potassium chloride ER 40 mEq tab(s) (KLOR-CON) 40 mEq ORAL BID Dexter Demshar, DO 40 mEq at 03/19/23 0845 NaCl 0.9% iv flush bag 20 mL INTRAVENOUS PRN Jackie Diaz MD COMPLETE REVIEW OF SYSTEMS PAIN ASSESSMENT: see HPI GENERAL: No weight loss, malaise or fevers HEENT: Negative for dizziness, blurred vision, double vision NECK: Negative for neck pain or stiffness RESPI (more content not included)... Normal [facility] CONSULT HNO ID: [id number] Author: Nidia Ram MD Service: General Surgery Author Type: Resident Type: Consults Filed: 03/19/2023 1:23 AM Note Text: Attestation signed by Justin Street MD at 03/19/2023 2:59 PM I agree with the note of Dr. Lui below. I reviewed the scan with the patient and agree with the finding of left subtemporal blood over the tentorium. This does not require any neurosurgical procedure. I recommend a follow-up CT scan in a few hours to establish stability. In the meantime no anticoagulation or antiplatelets should be administered. Justin Street MD CONSULT: Neurosurgery Service SERVICE DATE: 03/19/2023 SERVICE TIME: 1:21 AM REASON FOR CONSULT: SDH REQUESTING PHYSICIAN: Dr. Escobar Subjective 78 year old female with a history of keloids, R breast cancer s/p lumpectomy, chemorads, recent stroke (2 weeks ago) on Plavix, valvular heart disease, appendectomy, cholecystectomy, JOAQUINA presenting as a trauma transfer for evaluation of a SDH. Patient was walking with her when she fell and hit her head. She did not LOC. She did hit her head. She reports some pain to her right midface, but denies any headaches, nausea, vomiting, or new weakness. FUNCTIONAL STATUS: Independent PAST MEDICAL HISTORY Diagnosis Date Dilated aortic [...] SURGICAL HISTORY Procedure Laterality Date APPENDECTOMY HX 2005 BREAST BIOPSY CORE 04/08/08 U/S needle core UOQ right breast bx BX BREAST PERC NEED W/GUID 01/15/10 U/s NEEDLE CORE BX OUTER RIGHT BREAST BX/REMV,LYMPH NODE,DEEP AXILL 05/02/08 COLONOSCOP W/ OR W/O [facility] SPEC 07-06-05 Repeat in IDENTIFY SENTINEL NODE 05/02/08 right LAPAROSCOPIC CHOLEYCYSTECTOMY Cholecystectomy, lap MASTECTOMY,PARTIAL, WITH AXILLARY LYMPHADENECTOMY 05/02/08 PAST SURGICAL HISTORY OF 07/11/2011 Breast reconstruction-Dr. Ariel WHITMAN JENNIFER VAD W PORT/PUMP 11-07-08 TONSILLECTOMY HX 1972 TOTAL ABDOM HYSTERECTOMY Hysterectomy, JOAQUINA TUNNEL VAD W SUB Q PORT >=5 9-19-08 left IJ FAMILY HISTORY Problem Relation Age of Onset other (Other) Mother at age 52 of disease of endocrine system Heart Father [place] Stroke Father Coronary Artery Disease Son age 47 PA Alcohol/Drug Son cirrhosis Social History Tobacco Use Smoking status: Never Smokeless tobacco: Never Substance Use Topics Alcohol use: No Drug use: No (Not in a hospital admission) Current Facility-Administered Medications Medication Dose Route Frequency NaCl 0.9% iv flush bag 20 mL INTRAVENOUS PRN desmopressin 24 mcg in NaCl 0.9% 50 mL (DDAVP) 0.4 mcg/kg/dose (Adjusted) INTRAVENOUS ONCE Allergies As of Date: 03/18/2023 Allergen Noted Reaction AMBIEN [ZOLPIDEM TARTRATE] 09/24/2006 BACTRIM [SULFAMETHOXAZOLE-TRIM ETH*12/01/2019 Rash CODEINE 04/03/2006 DARVOCET-N 100 [PROPOXYPHENE N-AC*05/18/2008 Intolerance HYTRIN [TERAZOSIN HCL] 04/03/2006 IODINE 04/03/2006 Other: See Comments NEURONTIN [GABAPENTIN] 03/08/2014 Mental Status Change VICODIN [HYDROCODONE-ACETAMINO PHE*05/18/2008 Intolerance Fully Assessed 03/18/2023 COMPLETE REVIEW OF SYSTEMS: CONSTITUTIONAL: No fevers, chills HEENT: Denies frequent or severe heaches, nasal congestion/sinus symptoms, problematic allergy problems. EYES: No vision changes CARDIOVASCULAR: No chest pain. PULM: No Shortness of Breath. GI: No Nausea, Vomiting, or abdominal pain : No pain with urination or gross hematuria. NEURO: No weakness or numbness of concern. MUSC-SKEL: No new joint pain, swelling, or erythema. Objective PHYSICAL EXAM: GENERAL: Alert. No distress. Resting comfortably. NEURO: AANDOx3. Right sided weakness with right sided facial droop. Sensation grossly intact. HEENT: Normocephalic. Periorbital R ecchymosis and L cheek ecchymosis and edema. EOMI. LUNGS: Unlabored breathing on RA. Equal excursion bilaterally. CARDIAC: Regular rate. Good perfusion throughout. ABDOMEN: Soft, non-tender, non-distended. No rebound or guarding. EXTREMITIES: FUNES. No deformities. SKIN: No obvious jaundice or pallor. BP 144/94 Pulse 65 Temp (Src) 98.1 (Oral) Resp 20 Ht 5' 2" (1.58m) Wt 156 lb (70.8kg) SpO2 95% BMI 28.53 kg/(m2). O2 Therapy: Room Air DATA: Labs: Recent Labs 03/18/23 2320 NA 141 K 3.3* CHLOR 103 CO2 25 BUN 16 CREAT 0.78 GLUC 120* ANION 13 CA 9.3 ALB 4.3 AST 27 ALT 30 (more content not included)... Normal [facility] CONSULT HNO ID: [id number] Author: Shannon Escobar MD Service: General Surgery Author Type: Physician Type: Consults Filed: 03/19/2023 10:09 AM Note Text: Surgical Intensive Care Unit Consult Note SERVICE DATE: 03/19/2023 SERVICE TIME: 1:15 AM REASON FOR CONSULT: SDH REQUESTING PHYSICIAN: Dr. Bynum Subjective 78 year old female with a history of keloids, R breast cancer s/p lumpectomy, chemorads, recent stroke (2 weeks ago) on Plavix, valvular heart disease, appendectomy, cholecystectomy, JOAQUINA presenting as a trauma transfer for evaluation of a SDH. Patient was walking with her when she fell and hit her head. She did not LOC. She did hit her head. She reports some pain to her right midface, but denies any headaches, nausea, vomiting, or new weakness. FUNCTIONAL STATUS: Independent PAST MEDICAL HISTORY Diagnosis Date Dilated aortic [...] U/s NEEDLE CORE BX OUTER RIGHT BREAST BX/REMV,LYMPH NODE,DEEP AXILL 05/02/08 COLONOSCOP W/ OR W/O [facility] SPEC 07-06-05 Repeat in IDENTIFY SENTINEL NODE 05/02/08 right LAPAROSCOPIC CHOLEYCYSTECTOMY Cholecystectomy, lap MASTECTOMY,PARTIAL, WITH AXILLARY LYMPHADENECTOMY 05/02/08 PAST SURGICAL HISTORY OF 07/11/2011 Breast reconstruction-Dr. George REMOVAL JENNIFER VAD W PORT/PUMP 11-07-08 TONSILLECTOMY HX 1973 TOTAL ABDOM HYSTERECTOMY Hysterectomy, JOAQUINA TUNNEL VAD W SUB Q PORT >=5 06-10-08 left IJ FAMILY HISTORY Problem Relation Age of Onset other (Other) Mother at age 52 of disease of endocrine system Heart Father PA Stroke Father Coronary Artery Disease Son age 47 PA Alcohol/Drug Son cirrhosis Social History Tobacco Use Smoking status: Never Smokeless tobacco: Never Substance Use Topics Alcohol use: No Drug use: No (Not in a hospital admission) Current Facility-Administered Medications Medication Dose Route Frequency NaCl 0.9% iv flush bag 20 mL INTRAVENOUS PRN desmopressin 24 mcg in NaCl 0.9% 50 mL (DDAVP) 0.4 mcg/kg/dose (Adjusted) INTRAVENOUS ONCE Allergies As of Date: 03/18/2023 Allergen Noted Reaction AMBIEN [ZOLPIDEM TARTRATE] 09/24/2006 BACTRIM [SULFAMETHOXAZOLE-TRIM ETH*12/01/2019 Rash CODEINE 04/03/2006 DARVOCET-N 100 [PROPOXYPHENE N-AC*05/18/2008 Intolerance HYTRIN [TERAZOSIN HCL] 04/03/2006 IODINE 04/03/2006 Other: See Comments NEURONTIN [GABAPENTIN] 03/08/2014 Mental Status Change VICODIN [HYDROCODONE-ACETAMINO PHE*05/18/2008 Intolerance Fully Assessed 03/18/2023 COMPLETE REVIEW OF SYSTEMS: GENERAL: No weight loss, malaise or fevers. HEENT: Negative for frequent or significant headaches, No changes in hearing or vision, no nose bleeds or other nasal problems. NECK: Negative for lumps, goiter, pain and significant neck swelling. RESPIRATORY: Negative for cough, hemoptysis, wheezing, COPD, dyspnea or shortness of breath. CARDIOVASCULAR: Negative for chest pain, leg swelling, hypertension, CHF or palpitations. GI: No nausea, vomiting, or diarrhea. MUSCULOSKELETAL: Negative for joint pain or swelling, back pain or muscle pain. SKIN: Negative for lesions, rash, and itching. PSYCH: Negative for sleep disturbance, mood disorder and recent psychosocial stressors. NEURO: No history of headaches, syncope, paralysis, seizures or tremors. Objective PHYSICAL EXAM: BP 144/94 Pulse 65 Temp (Src) 98.1 (Oral) Resp 20 Ht 5' 2" (1.58m) Wt 156 lb (70.8kg) SpO2 95% BMI 28.53 kg/(m2). O2 Therapy: Room Air GENERAL: Alert. No distress. Resting comfortably. NEURO: AANDOx3. Right sided weakness with right sided facial droop. Sensation grossly intact. HEENT: Normocephalic. Periorbital R ecchymosis and L cheek ecchymosis and edema. EOMI. LUNGS: Unlabored breathing on RA. Equal excursion bilaterally. CARDIAC: Regular rate. Good perfusion throughout. ABDOMEN: Soft, non-tender, non-distended. No rebound or guarding. EXTREMITIES: FUNES. No deformities. SKIN: No obvious jaundice or pallor. DATA: Labs: Recent Labs 03/18/23 2320 NA 141 K 3.3* CHLOR 103 CO2 25 BUN 16 CREAT 0.78 GLUC 120* ANION 13 CA 9.3 ALB 4.3 AST 27 ALT 30 ALKPHOS 110 TBILI 0.3 WBC 7.60 HB 12.1 HCT 37.0 PLT 186 INR 1.0 Diagnostic tests reviewed for today's visit: Most recent labs and imaging results. Assessment and Plan: This is a 78 year old female with SDH after GLF on Plavix Hosp (more content not included)... Normal [facility] CT BRAIN WO IVCONon 03-19-20 CT BRAIN WO IVCON * * *Final Report* * * DATE OF EXAM: Mar 19 2023 8:58PM [facility] 0504 - CT BRAIN WO IVCON / PROCEDURE REASON: Headache, sudden, severe * * * * Physician Interpretation * * * * EXAMINATION: CT BRAIN WO IVCON CLINICAL HISTORY: Headache, pain TECHNIQUE: Serial axial images without IV contrast were obtained from the vertex to the foramen magnum. MQ: [id number] CT Radiation dose: Integrated Dose-Length Product (DLP) for this visit = 805 mGy*cm CT Dose Reduction Employed: [employer] COMPARISON: 03/19/2023 RESULT: Street Engineer (topogram) images: No additional findings. Post-operative change: None. Acute change: No evidence of an acute infarct. Hemorrhage: Stable hyperdense subdural hematoma along the left medial inferior temporal convexity and tentorial leaflet measuring 6 mm. Mass Lesion / Mass Effect: There is no evidence of an intracranial mass. Minimal mass effect on the left temporal lobe from the subdural hematoma. Chronic change: Patchy foci of low attenuation coefficient are present within the supratentorial white matter which is a nonspecific finding but likely represents moderate microvascular ischemia. There are remote chronic lacunar infarcts in the right basal ganglia, anterior limb of the right internal capsule, left justice radiata and along the superior margin of the left lentiform nucleus. Parenchyma: There is mild generalized volume loss. The brain parenchyma is otherwise within normal limits for age. Ventricles: Ventricular enlargement concordant with the degree of parenchymal volume loss. Paranasal sinuses and skull base: The visualized paranasal sinuses are grossly clear. The skull base and imaged soft tissues are unremarkable. IMPRESSION: Stable hyperdense subdural hematoma along the left medial inferior temporal convexity and tentorial leaflet measuring 6 mm. Advertising Designer: [facility] Transcribe Date/Time: Mar 19 2023 9:04P Dictated by : NIELS TAVARES MD This examination was interpreted and the report reviewed and electronically signed by: NIELS TAVARES MD on Mar 19 2023 9:16PM EST [id number] Normal [facility] CT BRAIN WO IVCON * * *Final Report* * * DATE OF EXAM: Mar 19 2023 1:23AM [facility] 0504 - CT BRAIN WO IVCON / PROCEDURE REASON: Head trauma, moderate-severe * * * * Physician Interpretation * * * * EXAMINATION: CT BRAIN WO IVCON CLINICAL HISTORY: TECHNIQUE: Serial axial images without IV contrast were obtained from the vertex to the foramen magnum. MQ: CTBWO_3 CT Radiation dose: Integrated Dose-Length Product (DLP) for this visit = 731 mGy*cm CT Dose Reduction Employed: Iterative recon COMPARISON: Outside head CT 03/18/2023 at 5:16 PM. RESULT: Post-operative change: None. Acute change: No evidence of an acute infarct or other acute parenchymal process. Hemorrhage: Hyperdense subdural hematoma which extends along the medial inferior temporal convexity and along the left tentorial leaflet anteriorly measures up to approximately 6 mm in maximum thickness is unchanged. Hematoma exerts only mild mass effect on the adjacent left temporal lobe. ECASS hemorrhagic transformation score: Not Applicable Mass Lesion / Mass Effect: Small subdural hematoma, as above. No significant mass effect. No other extra-axial mass or fluid collection. Chronic change: Ill-defined and confluent hypodensities in the supratentorial white matter are nonspecific but are most compatible with moderate chronic microvascular ischemic changes. There are remote chronic lacunar infarcts such as that in the right striatocapsular region which spans from the head of the right caudate nucleus into the right lentiform nucleus, anterior limb of the right internal capsule, left justice radiata and along the superior margin of the left lentiform nucleus. Scattered calcified atherosclerosis in the carotid siphons, regional to the left M1 MCA segment and in the intradural V4 segments of both vertebral arteries. Parenchyma: There is mild generalized volume loss. Ventricles: Ventricular enlargement concordant with the degree of parenchymal volume loss. Scalp and calvarium: No fracture or lytic or blastic lesion. No soft tissue abnormality. Paranasal sinuses and skull base: Small retention cyst or polyp in the right maxillary sinus. Remaining imaged sinuses are grossly clear. Middle ear cavities and mastoid air cells are grossly clear. Skull base is intact. IMPRESSION: 1. Unchanged small left inferior temporal convexity/tentorial hyperdense subdural hematoma without significant mass effect. 2. Mild generalized parenchymal volume loss with moderate chronic microvascular ischemic changes and a few remote lacunar infarcts. Advertising Designer: [facility] Transcribe Date/Time: Mar 19 2023 6:31A Dictated by : AUGIE DIAZ MD This examination was interpreted and the report reviewed and electronically signed by: AUGIE DIAZ MD on Mar 19 2023 6:43AM EST [id number] Normal [facility] Calcium.ionized [Moles/Vol]o n 03-19-2023 Calcium.ionized (BldV) [Mass/Vol] 1.07 mmol/L Low 1.08-1.30 [facility] Comment on above: Order Comment: Speci men Type: URINE SPECIMEN Ordering Facility: [facility] Address: [address] [place] [phone] Performed By: #### 3 5674-1, 52443-3 #### [facility] CLIA [id number] [address] [place], [place] [id number] [place] Calcium.ionized adjusted to pH 7.4 (Bld) [Moles/Vol] 1.08 mmol/L Normal 1.08-1.30 [facility] Comment on above: Order Comment: Speci men Type: URINE SPECIMEN Ordering Facility: [facility] Address: [address] [place] [address] Performed By: #### 3 5674-1, 10801-3 #### [facility] CLIA [id number] [address] Comprehensive metabolic 2000 panelon 03-19-2023 Albumin [Mass/Vol] 4.3 g/dL Normal 3.9-4.9 [facility] Comment on above: Order Comment: Speci men Type: URINE SPECIMEN Ordering Facility: [facility] Address: [address] [place] [address] Performed By: #### 3 5674-1, 03230-6 #### [facility] CLIA [id number] [address] ALP [Catalytic activity/Vol] 110 U/L Normal 34-123 [facility] Comment on above: Order Comment: Speci men Type: URINE SPECIMEN Ordering Facility: [facility] Address: [address] [place] [address] Performed By: #### 3 5674-1, 38961-5 #### [facility] CLIA [id number] [address] ALT With P-5'-P [Catalytic activity/Vol] 30 U/L Normal 7-38 [facility] Comment on above: Order Comment: Speci men Type: URINE SPECIMEN Ordering Facility: [facility] Address: [address] [place] [address] Performed By: #### 3 5674-1, 40012-0 #### [facility] CLIA [id number] [address] Anion gap [Moles/Vol] 13 mmol/L Normal 9-18 [facility] Comment on above: Order Comment: Speci men Type: URINE SPECIMEN Ordering Facility: [facility] Address: [address] [address] Performed By: #### 3 5674-1, 34716-5 #### [facility] CLIA [id number] [address] OF [facility] AST With P-5'-P [Catalytic activity/Vol] 27 U/L Normal 13-35 [facility] Comment on above: Order Comment: Speci men Type: URINE SPECIMEN Ordering Facility: [facility] Address: [address] [place] [address] Performed By: #### 3 5674-1, 00490-1 #### [facility] CLIA [id number] [address] [place] Bilirubin [Mass/Vol] 0.3 mg/dL Normal 0.2-1.3 [facility] Comment on above: Order Comment: Speci men Type: URINE SPECIMEN Ordering Facility: [facility] Address: [address] [place] [address] Performed By: #### 3 5674-1, 94659-1 #### [facility] CLIA [id number] [address] [place] Calcium [Mass/Vol] 9.3 mg/dL Normal 8.5-10.2 [facility] Comment on above: Order Comment: Speci men Type: URINE SPECIMEN Ordering Facility: [facility] Address: [address] [place] [address] Performed By: #### 3 5674-1, 03150-1 #### [facility] CLIA [id number] 1 [place] [address] [place] Chloride [Moles/Vol] 103 mmol/L Normal 97-105 [facility] Comment on above: Order Comment: Speci men Type: URINE SPECIMEN Ordering Facility: [facility] Address: [address] [place] [address] Performed By: #### 3 5674-1, 54436-0 #### [facility] CLIA [id number] [address] CO2 [Moles/Vol] 25 mmol/L Normal 22-30 [facility] Comment on above: Order Comment: Speci men Type: URINE SPECIMEN Ordering Facility: [facility] Address: [address] [place] [address] Performed By: #### 3 5674-1, 41483-1 #### [facility] CLIA [id number] [address] [place] Creatinine [Mass/Vol] 0.78 mg/dL Normal 0.58-0.96 [facility] Comment on above: Order Comment: Speci men Type: URINE SPECIMEN Ordering Facility: [facility] Address: [address] [place] [address] Performed By: #### 3 5674-1, 08562-6 #### [facility] CLIA [id number] [address] ESTIMATED GLOMERULAR FILTRATION RATE 78 mL/min/1.73m??? Normal >=60 [facility] Comment on above: Order Comment: Speci men Type: URINE SPECIMEN Ordering Facility: [facility] Address: [address] [place] [address] Result Comment: Lety mated Glomerular Filtration Rate (eGFR) is calculated using the 2020 CKD-EPI creatinine equation. This equation utilizes serum creatinine, sex, and age as parameters. The creatinine assay has traceable calibration to isotope dilution-mass spectrometry. Refer to KDIGO guidelines for clinical interpretation. In patients with unstable renal function, e.g. those with acute kidney injury, the eGFR may not accurately reflect actual GFR. Performed By: #### 3 5674-1, 84489-4 #### [facility] CLIA [id number] [address] [place] Glucose [Mass/Vol] 120 mg/dL High 74-99 [facility] Comment on above: Order Comment: Speci men Type: URINE SPECIMEN Ordering Facility: [facility] Address: [address] [place] [address] Result Comment: The [place] Diabetes [employer] (ADA) provides guidance for cutoff values for fasting glucose and random glucose. The ADA defines fasting as no caloric intake for at least 8 hours. Fasting plasma glucose results between 100 to 125 mg/dL indicate increased risk for diabetes (prediabetes). Fasting plasma glucose results greater than or equal to 126 mg/dL meet the criteria for diagnosis of diabetes. In the absence of unequivocal hyperglycemia, results should be confirmed by repeat testing. In a patient with classic symptoms of hyperglycemia or hyperglycemic crisis, random plasma glucose results greater than or equal to 200 mg/dL meet the criteria for diagnosis of diabetes. Reference: Standards of Medical Care in Diabetes 2016, [place] [employer]. Diabetes Care. 2016.39(Suppl 1). Performed By: #### 3 5674-1, 32147-2 #### [facility] CLIA [id number] 1 [place] [address] [place] Potassium [Moles/Vol] 3.3 mmol/L Low 3.7-5.1 [facility] Comment on above: Order Comment: Speci men Type: URINE SPECIMEN Ordering Facility: [facility] Address: [address] [address] Performed By: #### 3 5674-1, 94160-7 #### [facility] CLIA [id number] [address] STATES OF [facility] Protein [Mass/Vol] 6.3 g/dL Normal 6.3-8.0 [facility] Comment on above: Order Comment: Speci men Type: URINE SPECIMEN Ordering Facility: [facility] Address: [address] [address] Performed By: #### 3 5674-1, 87181-1 #### [facility] CLIA [id number] 1 [place] [address] [place] Sodium [Moles/Vol] 141 mmol/L Normal 136-144 [facility] Comment on above: Order Comment: Speci men Type: URINE SPECIMEN Ordering Facility: [facility] Address: [address] [address] Performed By: #### 3 5674-1, 07868-2 #### [facility] CLIA [id number] [address] [place] Urea nitrogen [Mass/Vol] 16 mg/dL Normal 7-21 [facility] Comment on above: Order Comment: Speci men Type: URINE SPECIMEN Ordering Facility: [facility] Address: [place] [address] Performed By: #### 3 5674-1, 89298-6 #### [facility] CLIA [id number] [address] ED NOTEon 03-19-2023 ED NOTE HNO ID: [id number] Author: Daniela Campos RN Service: Emergency Medicine Author Type: Registered Nurse Type: ED Notes Filed: 03/19/2023 1:16 AM Note Text: Pt still needs consent form for platelets Normal [facility] ED NOTE HNO ID: [id number] Author: Daniela Campos RN Service: Emergency Medicine Author Type: Registered Nurse Type: ED Notes Filed: 03/18/2023 11:55 PM Note Text: CT called pt ready for them Normal [facility] ED NOTE HNO ID: [id number] Author: Christy Cotton RN Service: ? Author Type: Registered Nurse Type: ED Notes Filed: 03/18/2023 10:59 PM Note Text: Bed: 06ED Expected date: Expected time: Means of arrival: Comments: [place]; SDH Normal [facility] ED PROV NOTEon 03-19-2023 ED PROV NOTE HNO ID: [id number] Author: Tiffany Spears DO Service: Emergency Medicine Author Type: Resident Type: ED Provider Notes Filed: 03/19/2023 1:23 AM Note Text: Attestation signed by Bety Andre MD at 03/19/2023 1:34 AM Attending Note I evaluated the patient and personally participated in the aguilar components. I agree with the resident's findings and plan as documented and have discussed the case and management of the patient's care with the resident. Signature: Bety Andre MD Date: 03/19/2023 Time: 1:34 AM Patient was signed out to me pending trauma recommendations. The patient was initially seen after a fall with history of recent stroke, currently on Plavix. Was found to have a subdural hematoma. Was given DDAVP here and accepted to the ICU under trauma for admission. Patient stable at this time. TIFFANY SPEARS 03/19/23 0123 BETY ANDRE 03/19/23 0134 Normal [facility] ED PROV NOTE HNO ID: [id number] Author: Neptali Trevizo MD Service: Emergency Medicine Author Type: Physician Type: ED Provider Notes Filed: 03/19/2023 12:55 AM Note Text: Attending Note: I performed a history and physical examination of the patient and discussed the management with the resident. I reviewed the resident's note and agree with the documented findings and plan of care. HPI: 78-year-old female presents by EMS from the [facility] for trauma consult secondary to fall. The patient has a history of recent CVA, mild right-sided deficits, currently on Plavix, fell and was found to have subdural hematoma at [place]. Patient was sent here for trauma consultation and admission. Patient does have some ecchymosis and hematoma to her right cheek. Patient has been hemodynamically stable here, vital signs within normal limits, patient appears to be in no acute distress. This patient had a normal cardiac exam. The patient has a normal S1-S2, a regular rate and rhythm, and no murmurs, rubs or gallops. Lungs were clear bilaterally, no rales, rhonchi, crackles, or wheezes. Abdomen is soft. Nondistended. No abdominal tenderness to palpation. Normal bowel sounds in all 4 quadrants. No rebound tenderness or guarding. No hepatosplenomegaly appreciated or masses, or pulsatile masses. Patient is a and O ?3. No focal neurologic deficits appreciated. Patient had 5/5 strength in all 4 extremities. Patient had normal sensation throughout. The patient had normal coordination as tested via finger to nose and heel to benitez testing. Patient's reflexes were intact throughout. PE: BP 129/83 Pulse 70 Temp (Src) 98.1 (Oral) Resp 21 Ht 5' 2" (1.58m) Wt 156 lb (70.8kg) SpO2 94% BMI 28.53 kg/(m2). GEN: Alert, no distress HEENT: Normal cephalic atraumatic, VERONICA, Moist mucus membranes RESP: Clear to auscultation, no distress CV: Regular rate and rhythm no murmur ABD: Nontender, nondistended MUSC: No edema, distal pulses intact, see above NEURO: Alert, oriented, no appreciable deficits, moves all extremities spontaneously MDM: Surgery ordered a chest x-ray and pelvics x-ray which are unremarkable, repeat CT brain was ordered, vital signs remain unremarkable here and the patient's labs are unremarkable so far with their results. I was present for and did personally supervised any/all procedures with this resident/DIEGO. NEPTALI TREVIZO 03/19/23 0055 Normal [facility] ED PROV NOTE HNO ID: [id number] Author: Jackie Diaz MD Service: Emergency Medicine Author Type: Resident Type: ED Provider Notes Filed: 03/19/2023 12:21 AM Note Text: Attestation signed by Neptali Trevizo MD at 03/20/2023 7:18 AM Attending Note I evaluated the patient and personally participated in the aguilar components. I agree with the resident's findings and plan as documented and have discussed the case and management of the patient's care with the resident. Signature: Neptali Trevizo MD Date: 03/20/2023 Time: 7:18 AM ED Provider Note Patient Name: Reyes Ponce : 1945 SERVICE DATE: 03/18/23 History Patient presents with: Fall: Pt is a transfer from [place] for a fall. Pt was walking with her when she fell and hit her head. +blood thinner -LOC pt has hx of stroke 2 weeks ago pt has abrasions noted to right cheek, ecchymosis to right side of chin. CT at [place] showed subdural hematoma Patient is a 78-year-old female who presented to the emergency department from [place]'s emergency department via EMS for trauma evaluation after imaging there showed a subdural hematoma. Patient does have past medical history significant for recent stroke with residual right-sided deficits. Patient is on Plavix. Patient had a mechanical fall. Fell on her right side. Did hit her head. Did not lose consciousness. At outside emergency department, CT of the brain, facial bones, neck obtained. Right shoulder x-ray, right knee x-ray also obtained. Imaging was remarkable for subdural hematoma. Patient is complaining of headache. She has no other complaints at this time. She denies any vision changes. She denies any numbness or tingling. PAST MEDICAL HISTORY Diagnosis Date Dilated aortic [...] U/s NEEDLE CORE BX OUTER RIGHT BREAST BX/REMV,LYMPH NODE,DEEP AXILL 05/02/08 COLONOSCOP W/ OR W/O [facility] SPEC 07-06-05 Repeat in IDENTIFY SENTINEL NODE 05/02/08 right LAPAROSCOPIC CHOLEYCYSTECTOMY Cholecystectomy, lap MASTECTOMY,PARTIAL, WITH AXILLARY LYMPHADENECTOMY 05/02/08 PAST SURGICAL HISTORY OF 07/11/2011 Breast reconstruction-Dr. George REMOVAL JENNIFER VAD W PORT/PUMP 11-07-08 TONSILLECTOMY HX 1973 TOTAL ABDOM HYSTERECTOMY Hysterectomy, JOAQUINA TUNNEL VAD W SUB Q PORT >=5 06-10-08 left IJ FAMILY HISTORY Problem Relation Age of Onset other (Other) Mother at age 52 of disease of endocrine system Heart Father [place] Stroke Father Coronary Artery Disease Son age 47 PA Alcohol/Drug Son cirrhosis Social History Tobacco Use Smoking status: Never Smokeless tobacco: Never Substance and Sexual Activity Alcohol use: No Drug use: No Sexual activity: Not on file ALLERGIES Allergen Reactions Ambien [Zolpidem Ta* hallucinations Bactrim [Sulfametho* Rash Codeine tight band around heand AND couldn't breath" Darvocet-N 100 [Pro* Intolerance severe nightmares Hytrin [Terazosin H* swelling of face Iodine Other: See Comments "face swelling" after used in a scan but uses betadine and iodine and eats shellfish without problems. Has had iodine tablets in the past without issue Neurontin [Gabapent* Mental Status Change Vicodin [Hydrocodon* Intolerance very bad nightmares Review of Systems Constitutional: Negative for chills and fever. HENT: Negative for congestion, sinus pressure and sinus pain. Respiratory: Negative for chest tightness and shortness of breath. Gastrointestinal: Negative for abdominal pain, nausea and vomiting. Genitourinary: Negative for dysuria and hematuria. Musculoskeletal: Negative for neck pain and neck stiffness. Skin: Positive for wound. Neurological: Positive for headaches. Negative for numbness. Physical Exam Vitals [03/18/23 2303] BP Pulse Temp Temp src Resp SpO2 Weight Height 161/92 68 36.7 ?C (98.1 ?F) Oral (!) 26 99 % 70.8 kg (156 lb) 1.575 m (5' 2") Physical Exam Primary survey: Airway: Intact Breathing: Bilateral breath sounds verified by auscultation. Circulation: intact upper and lower ext pulses, no active bleeding Disability: Moving all extremities, sensation intact GCS: 6 + 5 + 4 = 15 Secondary: General: Alert and oriented ?3 in no acute dist (more content not included)... [facility] Ethanol SerPl-mCncon 023 Ethanol [Mass/Vol] mg/dL Normal <11 [facility] Comment on above: Order Comment: Speci men Type: BLOOD SPECIMEN Ordering Facility: [facility] Address: [address] [place] [phone] Performed By: #### 5 643-2 #### [facility] CLIA [id number] [address] [place] [address] [place] HISTORY PHYSICALon 3 HISTORY PHYSICAL HNO ID: [id number] Author: Nidia Ram MD Service: General Surgery Author Type: Resident Type: HANDP Filed: 03/19/2023 1:15 AM Note Text: Attestation signed by Ren Bynum MD at 04/02/2023 4:40 PM Trauma Attending Note I have personally seen and evaluated this patient and participated in the aguilar components of this encounter. I discussed the management of this case with the surgery resident team and independently confirmed the findings and plan of care as documented either attached or in their separate note from today. Any corrections or additional notes are made as needed. I evaluated the patient on March 19, 2023 and 0930 am. Assessment and Plan: Reyes Ponce is a 78 year old female evaluated following a Level 3 activation for ground level fall The patient was evaluated according to ATLS protocols. Injuries and diagnoses are notable for: GLF SDH, Plavix use- Neurosurgery consult, DDAVP and platelets, Close BP monitoring, Keppra, serial neuro-exams, interval imaging Neurology consult given recent CVA Admit to ICU, SICU consult Ren Bynum MD Delayed entry TRAUMA SURGERY HANDP [facility] ARRIVAL DATE: 03/19/2023 ARRIVAL TIME: 1:02 AM Subjective 78 year old female with a history of keloids, R breast cancer s/p lumpectomy, chemorads, recent stroke (2 weeks ago) on Plavix, valvular heart disease, appendectomy, cholecystectomy, JOAQUINA presenting as a trauma transfer for evaluation of a SDH. Patient was walking with her when she fell and hit her head. She did not LOC. She did hit her head. She reports some pain to her right midface, but denies any headaches, nausea, vomiting, or new weakness. HPI/CHIEF COMPLAINT: GLF BRIEF DESCRIPTION OF INJURIES: periorbital ecchymosis to R eye LAST FLUIDS/MEAL: Unknown CODE STATUS: Not discussed ALLERGIES Allergen Reactions Ambien [Zolpidem Ta* hallucinations Bactrim [Sulfametho* Rash Codeine tight band around heand AND couldn't breath" Darvocet-N 100 [Pro* Intolerance severe nightmares Hytrin [Terazosin H* swelling of face Iodine Other: See Comments "face swelling" after used in a scan but uses betadine and iodine and eats shellfish without problems. Has had iodine tablets in the past without issue Neurontin [Gabapent* Mental Status Change Vicodin [Hydrocodon* Intolerance very bad nightmares (Not in a hospital admission) DATE OF LAST TETANUS: Unknown Immunization History Administered Date(s) Administered COVID-19 original vaccine, age 12+ yr, monovalent ([employer] - PURPLE TOP) 11/30/2020 12/21/2020 COVID-19 original vaccine, full dose, monovalent (MODERNA) 08/08/2021 PAST MEDICAL HISTORY Diagnosis Date Dilated aortic [...] SURGICAL HISTORY Procedure Laterality Date APPENDECTOMY HX 2005 BREAST BIOPSY CORE 04/08/08 U/S needle core UOQ right breast bx BX BREAST PERC NEED W/GUID 01/15/10 U/s NEEDLE CORE BX OUTER RIGHT BREAST BX/REMV,LYMPH NODE,DEEP AXILL 05/02/08 COLONOSCOP W/ OR W/O [facility] SPEC 07-06-05 Repeat in IDENTIFY SENTINEL NODE 05/02/08 right LAPAROSCOPIC CHOLEYCYSTECTOMY Cholecystectomy, lap MASTECTOMY,PARTIAL, WITH AXILLARY LYMPHADENECTOMY 05/02/08 PAST SURGICAL HISTORY OF 07/11/2011 Breast reconstruction-Dr. George REMOVAL JENNIFER VAD W PORT/PUMP 11-07-08 TONSILLECTOMY HX 1972 TOTAL ABDOM HYSTERECTOMY Hysterectomy, JOAQUINA TUNNEL VAD W SUB Q PORT >=5 06-10-08 left IJ Social History Tobacco Use Smoking status: Never Smokeless tobacco: Never Substance Use Topics Alcohol use: No Drug use: No FAMILY HISTORY Problem Relation Age of Onset other (Other) Mother at age 52 of disease of endocrine system Heart Father PA Stroke Father Coronary Artery Disease Son age 47 [place] Alcohol/Drug Son cirrhosis ROS: Is the patient having any pain? Yes LOCATION: Pain to midface Constitutional: Negative Eye/Ear/Nose: Negative Respiratory: Negative Cardiovascular: Negative GI/Liver/Biliary: Negative Genitourinary: Negative Psychiatric: Negative Neurologic: Negative Musculoskeletal: Negative Integument: Negative Endocrine: Negative Heme/Lymph: Negative Objective PRIMARY SURVEY AIRWAY: Patent BREATHING: Breath sounds equal CIRCULATION: PT/DP 2+, Radials 2+, Femoral 2+ DISABILITY: Eye: 4=Spontaneous Verbal: 5=Oriented and Converses Motor (more content not included)... Normal [facility] Lipase SerPl-cCncon 03-19-20 23 Lipase [Catalytic activity/Vol] 42 U/L Normal 16- [facility] Comment on above: Order Comment: Speci men Type: URINE SPECIMEN Ordering Facility: [facility] Address: [address] [place] [phone] Performed By: #### 3 5674-1, 66435-9 #### [facility] CLIA [id number] 1 [place] [address] [place] Magnesium SerPl-mCncon 03-19 Magnesium [Mass/Vol] 2.0 mg/dL Normal 1.7-2.3 [facility] Comment on above: Order Comment: Speci men Type: URINE SPECIMEN Ordering Facility: [facility] Address: [address] [place] [address] [place] [address] Performed By: #### 3 5674-1, 47286-2 #### [facility] CLIA [id number] [address] [place] NURSING PROGon 03-19-2023 NURSING PROG HNO ID: [id number] Author: Nancy Vera RN Service: Nursing Author Type: Registered Nurse Type: Nursing Progress Note Filed: 03/19/2023 4:08 PM Note Text: Transfer Note: PATIENT NAME: Reyes Ponce Patient Location: [place] [address] [address] 02-20 Room: [place] [address] Patient transferred out to room/unit [facility] in stable condition. Actions taken: Report given/called to [facility]. Patient belongings with patient. Family with patient. Transferred via wheelchair to [facility] at 1430. RN Ramy aware. [facility] NURSING PROG HNO ID: [id number] Author: Nancy Vera RN Service: Nursing Author Type: Registered Nurse Type: Nursing Progress Note Filed: 03/19/2023 1:02 PM Note Text: Other: Attempted to call report to RN on 52B for patient to trasnfer to [facility]. RN is busy with another patient and unavailable for report at this time. Will await return call. Normal [facility] NURSING PROG HNO ID: [id number] Author: Nancy Vera RN Service: Nursing Author Type: Registered Nurse Type: Nursing Progress Note Filed: 03/19/2023 1:01 PM Note Text: Other: Attempted to call report to RN on 5100 for patient to transfer to [facility] access hospital. Bed is currently occupied by the family and belongings of a patient the was supposed to return. 5100 RN to speak with operations for further instruction. Will await return call. Normal [facility] PT panel Coag (PPP)on 2022 INR Coag (PPP) [Relative time] 1.0 {INR} Normal 0.9-1.3 [facility] Comment on above: Order Comment: Speci men Type: URINE SPECIMEN Ordering Facility: [facility] Address: [place] [id number] Result Comment: Juli min K Antagonist (VKA) Therapeutic Range: INR 2 to 3 (Target INR of 2.5) Note: For patients treated with VKA drugs, such as warfarin, the [place] [employer] 2012 Guideline recommends a therapeutic INR range of 2 to 3 (target INR of 2.5). This recommendation includes high-risk patients with antiphospholipid syndrome with previous arterial or venous thromboembolism, current-generation mechanical or bioprosthetic aortic heart valve replacement. Note: Patients with mechanical aortic valve replacement and additional risk factors for thromboembolic events (atrial fibrillation, previous thromboembolism, LV dysfunction, hypercoagulable conditions) or an older generation mechanical AVR (i.e., ball in-Cage) or any mechanical MVR should have a INR therapeutic range of 2.5 to 3.5 (target INR of 3). Evertontt GH, et al. Chest 2012, 141:7S-47S Estephanie RA, et al. JAC 2017, 70: 252-289 Performed By: #### 3 5674-1, 05115-0 #### [facility] CLIA [id number] 1 [place] [address] [place] PT Coag (PPP) [Time] 10.4 s Normal 9.7-13.0 [facility] Comment on above: Order Comment: Speci men Type: URINE SPECIMEN Ordering Facility: [facility] Address: [place] [address] Performed By: #### 3 5674-1, 33043-2 #### [facility] CLIA [id number] 1 [place] [address] [place] Phosphate SerPl-mCncon 03-19 Phosphate [Mass/Vol] 4.6 mg/dL Normal 2.7-4.8 [facility] Comment on above: Order Comment: Speci men Type: URINE SPECIMEN Ordering Facility: [facility] Address: [address] [place] [address] Performed By: #### 3 5674-1, 23483-4 #### [facility] CLIA [id number] [address] STAPH AUREUS PCRon S. aureus and MRSA panel ANIKA+probe (Nose) Normal Negative [facility] Comment on above: Order Comment: Speci men Type: URINE SPECIMEN Ordering Facility: [facility] Address: [address] [place] [address] Result Comment: Nega tive for Staphylococcus aureus by PCR. Negative for MRSA by PCR Performed By: #### 3 5674-1, 25918-5 #### [facility] CLIA [id number] [address] [place] [address] OF [facility] TYPE + SCREENon 03-19-2023 ABO O Normal [facility] Comment on above: Order Comment: Speci men Type: URINE SPECIMEN Ordering Facility: [facility] Address: [address] [place] [address] Performed By: #### 3 5674-1, 72669-7 #### [facility] CLIA [id number] [address] OF [place] HISTORICAL AB SCR STATUS Negative Normal [facility] Comment on above: Order Comment: Speci men Type: URINE SPECIMEN Ordering Facility: [facility] Address: [address] [place] [address] Performed By: #### 3 5674-1, 28297-3 #### [facility] CLIA [id number] [address] OF [place] Rh Nom (Bld) Positive Normal [facility] Comment on above: Order Comment: Speci men Type: URINE SPECIMEN Ordering Facility: [facility] Address: [address] [place] [address] Performed By: #### 3 5674-1, 08132-0 #### [facility] CLIA [id number] [address] [place] [address] [facility] TYPE AND SCREEN EXPIRATION 03/21/2023 23:59 Normal [facility] Comment on above: Order Comment: Speci men Type: URINE SPECIMEN Ordering Facility: [facility] Address: [place] [address] Performed By: #### 3 5674-1, 72851-6 #### [facility] CLIA [id number] 1 [place] [id number] [employer] OF [facility] XR CHEST 1V FRONTALon 2022 XR CHEST 1V FRONTAL * * *Final Report* * * DATE OF EXAM: Mar 18 2023 11:47PM [id number] - XR CHEST 1V FRONTAL / PROCEDURE REASON: Chest trauma, penetrating * * * * Physician Interpretation * * * * EXAMINATION: CHEST RADIOGRAPH (SINGLE VIEW AP OR PA) CLINICAL HISTORY: Chest trauma, penetrating MQ: [id number]_5 Comparison: 10/29/2018 RESULT: Lines, tubes, and devices: None. Lungs and pleura: No consolidation. No lung mass. No pleural effusion. Cardiomediastinal silhouette: Normal cardiomediastinal silhouette. Stable aortic ectasia and mild cardiomegaly. Other: . IMPRESSION: No acute radiographic abnormality. Advertising Designer: DARIO Transcribe Date/Time: Mar 18 2023 11:54P Dictated by : SIMIN PRADO MD This examination was interpreted and the report reviewed and electronically signed by: SIMIN PRADO MD on Mar 18 2023 11:55PM EST [id number] Normal [facility] XR PELVIS 1V APon 03-19-2023 XR PELVIS 1V AP * * *Final Report* * * DATE OF EXAM: Mar 18 2023 11:47PM [id number] - XR PELVIS 1V AP / PROCEDURE REASON: Pelvic trauma * * * * Physician Interpretation * * * * EXAMINATION: XR PELVIS 1V AP HISTORY: Pelvic trauma COMPARISON: None available. TECHNIQUE: AP view the pelvis. FINDINGS: A single view the pelvis are present suboptimal evaluation. Generalized osteopenia. No evidence of acute osseous abnormality. Alignment is unremarkable on the frontal projection. No significant degenerative changes of the hips. Degenerative changes in the lower lumbar spine are partially evaluated on nondedicated imaging. IMPRESSION: No evidence of acute osseous abnormality on a single view the pelvis. If there is concern for occult fracture, cross-sectional imaging could be performed for further evaluation. Advertising Designer: DARIO Transcribe Date/Time: Mar 19 2023 12:46A Dictated by : ELLEN BROWNING MD This examination was interpreted and the report reviewed and electronically signed by: ELLEN BROWNING MD on Mar 19 2023 12:48AM EST [id number] Normal [facility] aPTT PPPon 03-19-2023 aPTT Coag (PPP) [Time] 25.6 s Normal 23.0-32.4 [facility] Comment on above: Order Comment: Speci men Type: URINE SPECIMEN Ordering Facility: [facility] Address: [address] [place] [phone] Performed By: #### 2 4356-8 #### [facility] CLIA [id number] 1 [place] [address] [place] Absolute lymphocyte countOrd ered By: Dr. Henderson on 03-18-2023 Lymphocytes Auto (Unsp spec) [#/Vol] 2.69 10*3/uL 0.83-4.51 [facility] Basophil percentageOrdered B y: Dr. Henderson on 03-18-2023 Basophil percentage 0 SEEN /hpf 0-5 [facility] Basophils/100 WBC (Bld) 0.5 % 0-1 [facility] Bilirubin [Mass/Vol] 0.30 mg/dL 0.20-1.00 [facility] Comment on above: For patients on eltr ombopag therapy, use of Dimension [place] TBIL is not recommended. Chloride [Moles/Vol] 102 mmol/L 98-107 [facility] Eosinophils/100 WBC (Bld) 0.8 % 0-5 [facility] Glucose [Mass/Vol] 100 mg/dL 74-106 [facility] Comment on above: Fasting Glucose resu lt from 100 to 125 mg/dL suggests IMPAIRED HOMEOSTASIS per A.D.A. criteria. Neutrophils (Bld) [#/Vol] 4.2 10*3/uL 2.0-7.7 [facility] Neutrophils/100 WBC (Bld) 53.8 % 47-70 [facility] Potassium [Moles/Vol] 3.0 mmol/L 3.5-5.1 [facility] Protein [Mass/Vol] 6.8 g/dL 6.4-8.2 [facility] Sodium [Moles/Vol] 137 mmol/L 136-145 [facility] WBC (Bld) [#/Vol] 7.8 10*3/uL 4.4-11.0 [facility] Bilirubin Test strip Ql (U)O rdered By: Dr. Henderson on 03-18-2023 Bilirubin Ql (U) Negative Negative [facility] Blood erythrocytes count (nu mber/volume)Ordered By: Dr. Henderson on 03-18-2023 RBC (Bld) [#/Vol] 3.95 10*6/uL 4.2-5.4 [facility] Blood hemoglobin measurement (mass/volume)Ordered By: Dr. Henderson on 03-18-2023 Hemoglobin (Bld) [Mass/Vol] 12.3 g/dL 12.0-15. 0 [facility] Blood lymphocytes/100 leukoc ytesOrdered By: Dr. Henderson on 03-18-2023 Lymphocytes/100 WBC (Bld) 34.6 % 19-41 [facility] Blood monocytes/100 leukocyt esOrdered By: Dr. Henderson on 03-18-2023 Monocytes/100 WBC (Bld) 10.0 % 0-10 [facility] Blood platelet mean volumeOr dered By: Dr. Henderson on 03-18-2023 Platelet mean volume (Bld) [Entitic vol] 10.8 fL 6.2-12.0 [facility] Determination of erythrocyte mean corpuscular volume (MCV)Ordered By: Dr. Henderson on 03-18-2023 MCV (RBC) [Entitic vol] 94.2 fL 81-99 [facility] Hematocrit Auto (Bld) [Volum e fraction]Ordered By: Dr. Henderson on 03-18-2023 Hematocrit (Bld) [Volume fraction] 37.2 % 37-47 [facility] INR in Blood by Coagulation assayOrdered By: Dr. Henderson on 03-18-2023 INR Coag (Bld) [Relative time] 1.0 {INR} [facility] Ketones Test strip Ql (U)Ord ered By: Dr. Henderson on 03-18-2023 Ketones Ql (U) Negative Negative [facility] Laboratory - Chemistry and C hemistry - challengeOrdered By: Dr. Henderson on 03-18-2023 ALP [Catalytic activity/Vol] 116 U/L 45-117 [facility] ALT [Catalytic activity/Vol] 40 U/L 13-56 [facility] CO2 [Moles/Vol] 30.0 mmol/L 21.0-32.0 [facility] Globulin (S) [Mass/Vol] 3.1 g/dL 2.2-4.2 [facility] Urea nitrogen/Creatinine [Mass ratio] 24.8 mg/mg 10-20 [facility] Laboratory - CoagulationOrde red By: Dr. Henderson on 03-18-2023 aPTT Coag (Bld) [Time] 28.0 s 24.1-36.2 [facility] PT Coag (PPP) [Time] 12.8 s 11.7-14.9 [facility] Laboratory - Hematology and Cell countsOrdered By: Dr. Henderson on 03-18-2023 Erythrocyte distribution width (RBC) [Entitic vol] 49.1 fL 35.1-43.9 [facility] Erythrocyte distribution width (RBC) [Ratio] 14.4 % 11.6-14.6 [facility] Immature granulocytes/100 WBC (Bld) 0.300 % 0.0-0.9 [facility] Comment on above: IG% - Immature Granu locytes (promyelocytes, myelocytes and metamyelocytes) > 1% indicates that a LEFT SHIFT is Present. MCH (RBC) [Entitic mass] 31.1 pg 27.0-32.0 [facility] Nucleated RBC/100 WBC (Bld) [Ratio] 0 % 0-5 [facility] MCHC Auto (RBC) [Mass/Vol]Or dered By: Dr. Henderson on 03-18-2023 MCHC (RBC) [Mass/Vol] 33.1 g/dL 32-36 [facility] Mucus LM Ql (Urine sed)Order ed By: Dr. Henderson on 03-18-2023 Mucus Ql (Urine sed) 0 SEEN /hpf [facility] Nitrite Test strip Ql (U)Ord ered By: Dr. Hendreson on 03-18-2023 Nitrite Ql (U) Negative Negative [facility] No Panel InformationOrdered By: Dr. Henderson on 03-18-2023 Troponin I High Sensitivity 11 pg/mL 3.0-54.0 [facility] Comment on above: Please Note: New Lola t Units and Gender Specific Reference Ranges. For more information see Policy Stat Procedure [place] High Sensitivity Troponin (TNIH) and attachments. Estimated Creatinine Clearance Calc 41.20 ml/min [facility] Estimated GFR (MDRD) Amer 79 mL/min >60 [facility] Comment on above: GFR Calc Estimated GFR (MDRD) Non-Af Amer 66 mL/min >60 [facility] Comment on above: Non- GFR Calc Platelets bldOrdered By: Dr. Henderson on 03-18-2023 Platelets (Bld) [#/Vol] 190 10*3/uL 150-450 [facility] Protein Test strip Ql (U)Ord ered By: Dr. Henderson on 03-18-2023 Protein Ql (U) Negative Negative [facility] Serum or plasma albumin shamar urement (mass/volume)Ordered By: Dr. Henderson on 03-18-2023 Albumin [Mass/Vol] 3.7 g/dL 3.2-5.0 [facility] Serum or plasma albumin/glob ulin mass ratioOrdered By: Dr. Henderson on 03-18-2023 Albumin/Globulin [Mass ratio] 1.2 {ratio} 0.9-2.4 [facility] Serum or plasma calcium shamar urement (mass/volume)Ordered By: Dr. Henderson on 03-18-2023 Calcium [Mass/Vol] 8.9 mg/dL 8.5-10.1 [facility] Serum or plasma creatinine m easurement (mass/volume)Ordered By: Dr. Henderson on 03-18-2023 Creatinine [Mass/Vol] 0.89 mg/dL 0.55-1.02 [facility] Comment on above: The validity of the calculated GFR & GFRAA in patients over 70 years has not been determined. Clinical correlation is essential. Serum or plasma urea nitroge n measurement (mass/volume)Ordered By: Dr. Henderson on 03-18-2023 Urea nitrogen [Mass/Vol] 22 mg/dL 7-18 [facility] Squamous epithelial cells de tection in urine sediment by light microscopyOrdered By: Dr. Henderson on 03-18-2023 Epithelial cells.squamous LM Ql (Urine sed) 0-5 SEEN /hpf 5-10 [facility] Thin prep Papanicolaou smear with manual screeningOrdered By: Dr. Henderson on 03-18-2023 Thin prep Papanicolaou smear with manual screening 21 U/L 15-37 [facility] Thin prep Papanicolaou smear with manual screening 5 5-15 [facility] Urine blood detectionOrdered By: Dr. Henderson on 03-18-2023 RBC Ql (U) Negative Negative [facility] RBC Ql (U) 0 SEEN /hpf 0-5 [facility] Urine clarityOrdered By: Dr. Henderson on 03-18-2023 Clarity (U) Clear Clear [facility] Urine color determinationOrd ered By: Dr. Henderson on 03-18-2023 Color (U) Straw Yellow [facility] Urine glucose detectionOrder ed By: Dr. Henderson on 03-18-2023 Glucose Ql (U) Normal mg/dl Normal [facility] Urine leukocyte esterase det ection by dipstickOrdered By: Dr. Henderson on 03-18-2023 Leukocyte esterase Test strip Ql (U) Negative Negative [facility] Urine pHOrdered By: Dr. Marcie denton on 03-18-2023 pH (U) 7.0 [pH] 5.0 - 8.0 [facility] Urine sediment bacteria coun t by microscopy (number/high power field)Ordered By: Dr. Henderson on 03-18-2023 Bacteria LM.HPF (Urine sed) [#/Area] 0 /[HPF] None Seen [facility] Urine specific gravity measu rementOrdered By: Dr. Henderson on 03-18-2023 Specific gravity (U) [Rel density] 1.010 1.002-1.03 0 [facility] Urobilinogen Auto test strip Ql (U)Ordered By: Dr. Henderson on 03-18-2023 Urobilinogen Ql (U) Normal mg/dl Normal [facility] Absolute lymphocyte countOrd ered By: Dr. Lunsford on 03-01-2023 Lymphocytes Auto (Unsp spec) [#/Vol] 3.23 10*3/uL 0.83-4.51 [facility] Basophil percentageOrdered B y: Dr. Lunsford on 03-01-2023 Basophils/100 WBC (Bld) 0.3 % 0-1 [facility] Chloride [Moles/Vol] 104 mmol/L 98-107 [facility] Eosinophils/100 WBC (Bld) 0.7 % 0-5 [facility] Glucose [Mass/Vol] 126 mg/dL 74-106 [facility] Comment on above: Fasting Glucose resu lt greater than or equal to 126 mg/dL suggests DIABETES MELLITUS per A.D.A. criteria. Neutrophils (Bld) [#/Vol] 8.0 10*3/uL 2.0-7.7 [facility] Neutrophils/100 WBC (Bld) 65.1 % 47-70 [facility] Potassium [Moles/Vol] 3.6 mmol/L 3.5-5.1 [facility] Sodium [Moles/Vol] 139 mmol/L 136-145 [facility] WBC (Bld) [#/Vol] 12.4 10*3/uL 4.4-11.0 [facility] Blood erythrocytes count (nu mber/volume)Ordered By: Dr. Lunsford on 03-01-2023 RBC (Bld) [#/Vol] 4.26 10*6/uL 4.2-5.4 [facility] Blood hemoglobin measurement (mass/volume)Ordered By: Dr. Lunsford on 03-01-2023 Hemoglobin (Bld) [Mass/Vol] 13.2 g/dL 12.0-15. 0 [facility] Blood lymphocytes/100 leukoc ytesOrdered By: Dr. Lunsford on 03-01-2023 Lymphocytes/100 WBC (Bld) 26.2 % 19-41 [facility] Blood monocytes/100 leukocyt esOrdered By: Dr. Lunsford on 03-01-2023 Monocytes/100 WBC (Bld) 7.2 % 0-10 [facility] Blood platelet mean volumeOr dered By: Dr. Lunsford on 03-01-2023 Platelet mean volume (Bld) [Entitic vol] 10.6 fL 6.2-12.0 [facility] Determination of erythrocyte mean corpuscular volume (MCV)Ordered By: Dr. Lunsford on 03-01-2023 MCV (RBC) [Entitic vol] 94.8 fL 81-99 [facility] Glucose Glucometer (BldC) [M ass/Vol]Ordered By: Dr. Lunsford on 03-01-2023 Glucose [Mass/Vol] 132 mg/dL 74-106 [facility] Comment on above: MANAGEMENT OF PATIEN T CARE PER NURSING PROTOCOL Hematocrit Auto (Bld) [Volum e fraction]Ordered By: Dr. Lunsford on 03-01-2023 Hematocrit (Bld) [Volume fraction] 40.4 % 37-47 [facility] Laboratory - Chemistry and C hemistry - challengeOrdered By: Dr. Lunsford on 03-01-2023 CO2 [Moles/Vol] 28.0 mmol/L 21.0-32.0 [facility] Urea nitrogen/Creatinine [Mass ratio] 23.5 mg/mg 10-20 [facility] Laboratory - Hematology and Cell countsOrdered By: Dr. Lunsford on 03-01-2023 Erythrocyte distribution width (RBC) [Entitic vol] 48.5 fL 35.1-43.9 [facility] Erythrocyte distribution width (RBC) [Ratio] 14.1 % 11.6-14.6 [facility] Immature granulocytes/100 WBC (Bld) 0.500 % 0.0-0.9 [facility] Comment on above: IG% - Immature Granu locytes (promyelocytes, myelocytes and metamyelocytes) > 1% indicates that a LEFT SHIFT is Present. MCH (RBC) [Entitic mass] 31.0 pg 27.0-32.0 [facility] Nucleated RBC/100 WBC (Bld) [Ratio] 0 % 0-5 [facility] MCHC Auto (RBC) [Mass/Vol]Or dered By: Dr. Lunsford on 03-01-2023 MCHC (RBC) [Mass/Vol] 32.7 g/dL 32-36 [facility] No Panel InformationOrdered By: Dr. Lunsford on 03-01-2023 Estimated Creatinine Clearance Calc 41.87 ml/min [facility] Estimated GFR (MDRD) Amer 79 mL/min >60 [facility] Comment on above: GFR Calc Estimated GFR (MDRD) Non-Af Amer 65 mL/min >60 [facility] Comment on above: Non- GFR Calc Platelets bldOrdered By: Dr. Lunsford on 03-01-2023 Platelets (Bld) [#/Vol] 227 10*3/uL 150-450 [facility] Serum or plasma calcium shamar urement (mass/volume)Ordered By: Dr. Lunsford on 03-01-2023 Calcium [Mass/Vol] 9.8 mg/dL 8.5-10.1 [facility] Serum or plasma creatinine m easurement (mass/volume)Ordered By: Dr. Lunsford on 03-01-2023 Creatinine [Mass/Vol] 0.89 mg/dL 0.55-1.02 [facility] Comment on above: The validity of the calculated GFR & GFRAA in patients over 70 years has not been determined. Clinical correlation is essential. Serum or plasma urea nitroge n measurement (mass/volume)Ordered By: Dr. Lunsford on 03-01-2023 Urea nitrogen [Mass/Vol] 21 mg/dL 7-18 [facility] Thin prep Papanicolaou smear with manual screeningOrdered By: Dr. Lunsford on 03-01-2023 Thin prep Papanicolaou smear with manual screening 7 5-15 [facility] Basophil percentageOrdered B y: Dr. Walker on 02-28-2023 Cholesterol [Mass/Vol] 256 mg/dL <200 [facility] Comment on above: <200 mg/dL Desirable 200-240 mg/dL Borderline >240 mg/dL High Risk Triglyceride [Mass/Vol] 85 mg/dL <199 [facility] Comment on above: The drugs N-Acetylcy steine and Metamizole may falsely depress this assay.Serum Triglycerides Reference Interval Normal <150 mg/dL Borderline high 150 - 199 mg/dL High 200 - 499 mg/dL Very High > or = 500 mg/dL Laboratory - Chemistry and C hemistry - challengeOrdered By: Dr. Lunsford on 02-28-2023 Free T4 [Mass/Vol] 1.00 ng/dL 0.76-1.46 [facility] No Panel InformationOrdered By: Dr. Walker on 02-28-2023 Thyroid Stimulating Hormone (TSH) 0.29 uIU/mL 0.358-3.74 [facility] Serum or plasma cholesterol in HDL measurement (mass/volume)Ordered By: Dr. Walker on 02-28-2023 Cholesterol in HDL [Mass/Vol] 58 mg/dL >40 [facility] Comment on above: The drugs N-Acetylcy steine and Metamizole may falsely depress this assay. Reference Range HDL <40 mg/dL Low HDL Cholesterol HDL >or= 60 mg/dL High HDL Cholesterol Serum or plasma cholesterol in VLDL measurement (mass/volume)Ordered By: Dr. Walker on 02-28-2023 Cholesterol in VLDL [Mass/Vol] 17 mg/dL 5-40 [facility] Serum or plasma low density lipoprotein (LDL) cholesterol measurement (mass/volume)Ordered By: Dr. Walker on 02-28-2023 Cholesterol in LDL [Mass/Vol] 181 mg/dL 0-130 [facility] Whole blood hemoglobin A1c/t otal hemoglobin ratio (mass fraction)Ordered By: Dr. Walker on 02-28-2023 HbA1c (Bld) [Mass fraction] 6.9 % 3.8-5.6 [facility] Comment on above: Normal < 5.7 % Predi abetic 5.7 - 6.4 % Diabetic >or= 6.5 % Please note range changes. Absolute lymphocyte countOrd ered By: Dr. Mcbride on 02-27-2023 Lymphocytes Auto (Unsp spec) [#/Vol] 1.96 10*3/uL 0.83-4.51 [facility] Basophil percentageOrdered B y: Dr. Walker on 02-27-2023 Basophil percentage 0 SEEN /hpf 0-5 [facility] Basophil percentageOrdered B y: Dr. Mcbride on 02-27-2023 Basophils/100 WBC (Bld) 0.6 % 0-1 [facility] Chloride [Moles/Vol] 102 mmol/L 98-107 [facility] Eosinophils/100 WBC (Bld) 1.1 % 0-5 [facility] Glucose [Mass/Vol] 129 mg/dL 74-106 [facility] Comment on above: Fasting Glucose resu lt greater than or equal to 126 mg/dL suggests DIABETES MELLITUS per A.D.A. criteria. Neutrophils (Bld) [#/Vol] 3.7 10*3/uL 2.0-7.7 [facility] Neutrophils/100 WBC (Bld) 57.8 % 47-70 [facility] Potassium [Moles/Vol] 3.7 mmol/L 3.5-5.1 [facility] Sodium [Moles/Vol] 138 mmol/L 136-145 [facility] WBC (Bld) [#/Vol] 6.5 10*3/uL 4.4-11.0 [facility] Bilirubin Test strip Ql (U)O rdered By: Dr. Walker on 02-27-2023 Bilirubin Ql (U) Negative Negative [facility] Blood erythrocytes count (nu mber/volume)Ordered By: Dr. Mcbride on 02-27-2023 RBC (Bld) [#/Vol] 4.32 10*6/uL 4.2-5.4 [facility] Blood hemoglobin measurement (mass/volume)Ordered By: Dr. Mcbride on 02-27-2023 Hemoglobin (Bld) [Mass/Vol] 13.2 g/dL 12.0-15. 0 [facility] Blood lymphocytes/100 leukoc ytesOrdered By: Dr. Mcbride on 02-27-2023 Lymphocytes/100 WBC (Bld) 30.3 % 19-41 [facility] Blood monocytes/100 leukocyt esOrdered By: Dr. Mcbride on 02-27-2023 Monocytes/100 WBC (Bld) 9.9 % 0-10 [facility] Blood platelet mean volumeOr dered By: Dr. Mcbride on 02-27-2023 Platelet mean volume (Bld) [Entitic vol] 10.2 fL 6.2-12.0 [facility] Determination of erythrocyte mean corpuscular volume (MCV)Ordered By: Dr. Mcbride on 02-27-2023 MCV (RBC) [Entitic vol] 94.9 fL 81-99 [facility] Erythrocyte sedimentation ra teOrdered By: Dr. Mcbride on 06-08-2023 ESR (Bld) [Velocity] 15 mm/h 0-30 [facility] Glucose Glucometer (BldC) [M ass/Vol]Ordered By: Dr. Mcbride on 02-27-2023 Glucose [Mass/Vol] 125 mg/dL 74-106 [facility] Comment on above: MANAGEMENT OF PATIEN T CARE PER NURSING PROTOCOL Hematocrit Auto (Bld) [Volum e fraction]Ordered By: Dr. Mcbride on 02-27-2023 Hematocrit (Bld) [Volume fraction] 41.0 % 37-47 [facility] INR in Blood by Coagulation assayOrdered By: Dr. Mcbride on 02-27-2023 INR Coag (Bld) [Relative time] 1.0 {INR} [facility] Ketones Test strip Ql (U)Ord ered By: Dr. Walker on 02-27-2023 Ketones Ql (U) 15 mg/dl Negative [facility] Laboratory - Chemistry and C hemistry - challengeOrdered By: Dr. Mcbride on 02-27-2023 CO2 [Moles/Vol] 30.0 mmol/L 21.0-32.0 [facility] Urea nitrogen/Creatinine [Mass ratio] 21.3 mg/mg 10-20 [facility] Laboratory - Chemistry and C hemistry - challengeOrdered By: Dr. Walker on 02-27-2023 Magnesium [Mass/Vol] 2.0 mg/dL 1.6-2.6 [facility] Laboratory - CoagulationOrde red By: Dr. Mcbride on 02-27-2023 aPTT Coag (Bld) [Time] 23.6 s 24.1-36.2 [facility] PT Coag (PPP) [Time] 13.2 s 11.7-14.9 [facility] Laboratory - Hematology and Cell countsOrdered By: Dr. Mcbride on 02-27-2023 Erythrocyte distribution width (RBC) [Entitic vol] 48.3 fL 35.1-43.9 [facility] Erythrocyte distribution width (RBC) [Ratio] 13.9 % 11.6-14.6 [facility] Immature granulocytes/100 WBC (Bld) 0.300 % 0.0-0.9 [facility] Comment on above: IG% - Immature Granu locytes (promyelocytes, myelocytes and metamyelocytes) > 1% indicates that a LEFT SHIFT is Present. MCH (RBC) [Entitic mass] 30.6 pg 27.0-32.0 [facility] Nucleated RBC/100 WBC (Bld) [Ratio] 0 % 0-5 [facility] MCHC Auto (RBC) [Mass/Vol]Or dered By: Dr. Mcbride on 02-27-2023 MCHC (RBC) [Mass/Vol] 32.2 g/dL 32-36 [facility] Mucus LM Ql (Urine sed)Order ed By: Dr. Walker on 02-27-2023 Mucus Ql (Urine sed) 0 SEEN /hpf [facility] Nitrite Test strip Ql (U)Ord ered By: Dr. Walker on 02-27-2023 Nitrite Ql (U) Negative Negative [facility] No Panel InformationOrdered By: Dr. Walker on 02-27-2023 Troponin I High Sensitivity 10 pg/mL 3.0-54.0 [facility] Comment on above: Please Note: New Lola t Units and Gender Specific Reference Ranges. For more information see Policy Stat Procedure [place] High Sensitivity Troponin (TNIH) and attachments. No Panel InformationOrdered By: Dr. Mcbride on 02-27-2023 Estimated Creatinine Clearance Calc 37.64 ml/min [facility] Estimated GFR (MDRD) Amer 70 mL/min >60 [facility] Comment on above: GFR Calc Estimated GFR (MDRD) Non-Af Amer 58 mL/min >60 [facility] Comment on above: Non- GFR Calc Troponin I High Sensitivity 11 pg/mL 3.0-54.0 [facility] Comment on above: Please Note: New Lola t Units and Gender Specific Reference Ranges. For more information see Policy Stat Procedure [place] High Sensitivity Troponin (TNIH) and attachments. Platelets bldOrdered By: Dr. Mcbride on 02-27-2023 Platelets (Bld) [#/Vol] 201 10*3/uL 150-450 [facility] Protein Test strip Ql (U)Ord ered By: Dr. Walker on 02-27-2023 Protein Ql (U) Negative Negative [facility] Serum or plasma calcium shamar urement (mass/volume)Ordered By: Dr. Mcbride on 02-27-2023 Calcium [Mass/Vol] 9.3 mg/dL 8.5-10.1 [facility] Serum or plasma creatinine m easurement (mass/volume)Ordered By: Dr. Mcbride on 02-27-2023 Creatinine [Mass/Vol] 0.99 mg/dL 0.55-1.02 [facility] Comment on above: The validity of the calculated GFR & GFRAA in patients over 70 years has not been determined. Clinical correlation is essential. Serum or plasma urea nitroge n measurement (mass/volume)Ordered By: Dr. Mcbride on 02-27-2023 Urea nitrogen [Mass/Vol] 21 mg/dL 7-18 [facility] Squamous epithelial cells de tection in urine sediment by light microscopyOrdered By: Dr. Walker on 02-27-2023 Epithelial cells.squamous LM Ql (Urine sed) 0 SEEN /hpf 5-10 [facility] Thin prep Papanicolaou smear with manual screeningOrdered By: Dr. Mcbride on 02-27-2023 Thin prep Papanicolaou smear with manual screening 6 5-15 [facility] Urine blood detectionOrdered By: Dr. Walker on 02-27-2023 RBC Ql (U) 10 /ul Negative [facility] RBC Ql (U) 0 SEEN /hpf 0-5 [facility] Urine clarityOrdered By: Dr. Walker on 02-27-2023 Clarity (U) Clear Clear [facility] Urine color determinationOrd ered By: Dr. Walker on 02-27-2023 Color (U) Yellow Yellow [facility] Urine glucose detectionOrder ed By: Dr. Walker on 02-27-2023 Glucose Ql (U) 1000 mg/dl Normal [facility] Urine leukocyte esterase det ection by dipstickOrdered By: Dr. Walker on 02-27-2023 Leukocyte esterase Test strip Ql (U) Negative Negative [facility] Urine pHOrdered By: Dr. Willard chase on 02-27-2023 pH (U) 7.0 [pH] 5.0 - 8.0 [facility] Urine sediment bacteria coun t by microscopy (number/high power field)Ordered By: Dr. Walker on 02-27-2023 Bacteria LM.HPF (Urine sed) [#/Area] 0 /[HPF] None Seen [facility] Urine specific gravity measu rementOrdered By: Dr. Walker on 02-27-2023 Specific gravity (U) [Rel density] 1.010 1.002-1.03 0 [facility] Urobilinogen Auto test strip Ql (U)Ordered By: Dr. Walker on 02-27-2023 Urobilinogen Ql (U) Normal mg/dl Normal [facility] No Panel InformationOrdered By: North Cuellar on 02-07-2023 Influenza Types A,B Direct FA (MICHELLE) Influenzae B [facility] No Panel InformationOrdered By: Dr. Cuellar on 02-07-2023 Influenza Types A,B Direct FA (MICHELLE) Influenzae B [facility] RSV Ag EIAOrdered By: North lucero on 02-07-2023 RSV Ag Immune stain Ql (Tiss) [facility] RSV Ag EIAOrdered By: Dr. Geronimo lucero on 02-07-2023 RSV Ag Immune stain Ql (Tiss) [facility] Absolute lymphocyte countOrd ered By: Dr. Auguste on 02-04-2023 Lymphocytes Auto (Unsp spec) [#/Vol] 2.68 10*3/uL 0.83-4.51 [facility] Basophil percentageOrdered B y: Dr. Auguste on 02-04-2023 Basophils/100 WBC (Bld) 0.6 % 0-1 [facility] Chloride [Moles/Vol] 97 mmol/L 98-107 [facility] Eosinophils/100 WBC (Bld) 1.6 % 0-5 [facility] Glucose [Mass/Vol] 135 mg/dL 74-106 [facility] Comment on above: Fasting Glucose resu lt greater than or equal to 126 mg/dL suggests DIABETES MELLITUS per A.D.A. criteria. Neutrophils (Bld) [#/Vol] 6.9 10*3/uL 2.0-7.7 [facility] Neutrophils/100 WBC (Bld) 63.5 % 47-70 [facility] Potassium [Moles/Vol] 3.8 mmol/L 3.5-5.1 [facility] Comment on above: Moderate Hemolysis, Result may be falsely increased. Sodium [Moles/Vol] 135 mmol/L 136-145 [facility] WBC (Bld) [#/Vol] 10.9 10*3/uL 4.4-11.0 [facility] Blood erythrocytes count (nu mber/volume)Ordered By: Dr. Auguste on 02-04-2023 RBC (Bld) [#/Vol] 4.31 10*6/uL 4.2-5.4 [facility] Blood hemoglobin measurement (mass/volume)Ordered By: Dr. Auguste on 02-04-2023 Hemoglobin (Bld) [Mass/Vol] 13.3 g/dL 12.0-15. 0 [facility] Blood lymphocytes/100 leukoc ytesOrdered By: Dr. Auguste on 02-04-2023 Lymphocytes/100 WBC (Bld) 24.7 % 19-41 [facility] Blood monocytes/100 leukocyt esOrdered By: Dr. Auguste on 02-04-2023 Monocytes/100 WBC (Bld) 9.0 % 0-10 [facility] Blood platelet mean volumeOr dered By: Dr. Auguste on 02-04-2023 Platelet mean volume (Bld) [Entitic vol] 10.0 fL 6.2-12.0 [facility] Determination of erythrocyte mean corpuscular volume (MCV)Ordered By: Dr. Auguste on 02-04-2023 MCV (RBC) [Entitic vol] 93.3 fL 81-99 [facility] Hematocrit Auto (Bld) [Volum e fraction]Ordered By: Dr. Auguste on 02-04-2023 Hematocrit (Bld) [Volume fraction] 40.2 % 37-47 [facility] Laboratory - Chemistry and C hemistry - challengeOrdered By: Dr. Auguste on 02-04-2023 CO2 [Moles/Vol] 31.0 mmol/L 21.0-32.0 [facility] Natriuretic peptide B (Bld) [Mass/Vol] 109.4 pg/mL 0-100 [facility] Urea nitrogen/Creatinine [Mass ratio] 22.2 mg/mg 10-20 [facility] Laboratory - Hematology and Cell countsOrdered By: Dr. Auguste on 02-04-2023 Erythrocyte distribution width (RBC) [Entitic vol] 46.7 fL 35.1-43.9 [facility] Erythrocyte distribution width (RBC) [Ratio] 13.6 % 11.6-14.6 [facility] Immature granulocytes/100 WBC (Bld) 0.600 % 0.0-0.9 [facility] Comment on above: IG% - Immature Granu locytes (promyelocytes, myelocytes and metamyelocytes) > 1% indicates that a LEFT SHIFT is Present. MCH (RBC) [Entitic mass] 30.9 pg 27.0-32.0 [facility] Nucleated RBC/100 WBC (Bld) [Ratio] 0 % 0-5 [facility] MCHC Auto (RBC) [Mass/Vol]Or dered By: Dr. Auguste on 02-04-2023 MCHC (RBC) [Mass/Vol] 33.1 g/dL 32-36 [facility] No Panel InformationOrdered By: Dr. Auguste on 02-04-2023 Troponin I High Sensitivity 12 pg/mL 3.0-54.0 [facility] Comment on above: Please Note: New Lola t Units and Gender Specific Reference Ranges. For more information see Policy Stat Procedure [place] High Sensitivity Troponin (TNIH) and attachments. Estimated Creatinine Clearance Calc 37.64 ml/min [facility] Estimated GFR (MDRD) Amer 70 mL/min >60 [facility] Comment on above: GFR Calc Estimated GFR (MDRD) Non-Af Amer 58 mL/min >60 [facility] Comment on above: Non- GFR Calc Platelets bldOrdered By: Dr. Auguste on 02-04-2023 Platelets (Bld) [#/Vol] 206 10*3/uL 150-450 [facility] Serum or plasma calcium shamar urement (mass/volume)Ordered By: Dr. Auguste on 02-04-2023 Calcium [Mass/Vol] 8.9 mg/dL 8.5-10.1 [facility] Serum or plasma creatinine m easurement (mass/volume)Ordered By: Dr. Auguste on 02-04-2023 Creatinine [Mass/Vol] 0.99 mg/dL 0.55-1.02 [facility] Comment on above: The validity of the calculated GFR & GFRAA in patients over 70 years has not been determined. Clinical correlation is essential. Serum or plasma urea nitroge n measurement (mass/volume)Ordered By: Dr. Auguste on 02-04-2023 Urea nitrogen [Mass/Vol] 22 mg/dL 7-18 [facility] Thin prep Papanicolaou smear with manual screeningOrdered By: Dr. Auguste on 02-04-2023 Thin prep Papanicolaou smear with manual screening 7 5-15 [facility] Absolute lymphocyte countOrd ered By: Dr. Cuellar on 10-21-2022 Lymphocytes Auto (Unsp spec) [#/Vol] 1.73 10*3/uL 0.83-4.51 [facility] Basophil percentageOrdered B y: Dr. Cuellar on 10-21-2022 Basophils/100 WBC (Bld) 0.8 % 0-1 [facility] Bilirubin [Mass/Vol] 0.40 mg/dL 0.20-1.00 [facility] Comment on above: For patients on eltr ombopag therapy, use of Dimension [place] TBIL is not recommended. Chloride [Moles/Vol] 103 mmol/L 98-107 [facility] Eosinophils/100 WBC (Bld) 1.2 % 0-5 [facility] Glucose [Mass/Vol] 146 mg/dL 74-106 [facility] Comment on above: Fasting Glucose resu lt greater than or equal to 126 mg/dL suggests DIABETES MELLITUS per A.D.A. criteria. Neutrophils (Bld) [#/Vol] 4.3 10*3/uL 2.0-7.7 [facility] Neutrophils/100 WBC (Bld) 65.2 % 47-70 [facility] Potassium [Moles/Vol] 3.7 mmol/L 3.5-5.1 [facility] Protein [Mass/Vol] 7.2 g/dL 6.4-8.2 [facility] Sodium [Moles/Vol] 138 mmol/L 136-145 [facility] WBC (Bld) [#/Vol] 6.6 10*3/uL 4.4-11.0 [facility] Blood erythrocytes count (nu mber/volume)Ordered By: Dr. Cuellar on 10-21-2022 RBC (Bld) [#/Vol] 4.36 10*6/uL 4.2-5.4 [facility] Blood hemoglobin measurement (mass/volume)Ordered By: Dr. Cuellar on 10-21-2022 Hemoglobin (Bld) [Mass/Vol] 13.4 g/dL 12.0-15. 0 [facility] Blood lymphocytes/100 leukoc ytesOrdered By: Dr. Cuellar on 10-21-2022 Lymphocytes/100 WBC (Bld) 26.2 % 19-41 [facility] Blood monocytes/100 leukocyt esOrdered By: Dr. Cuellar on 10-21-2022 Monocytes/100 WBC (Bld) 6.4 % 0-10 [facility] Blood platelet mean volumeOr dered By: Dr. Cuellar on 10-21-2022 Platelet mean volume (Bld) [Entitic vol] 10.8 fL 6.2-12.0 [facility] Determination of erythrocyte mean corpuscular volume (MCV)Ordered By: Dr. Cuellar on 10-21-2022 MCV (RBC) [Entitic vol] 92.0 fL 81-99 [facility] Hematocrit Auto (Bld) [Volum e fraction]Ordered By: Dr. Cuellar on 10-21-2022 Hematocrit (Bld) [Volume fraction] 40.1 % 37-47 [facility] Laboratory - Chemistry and C hemistry - challengeOrdered By: Dr. Cuellar on 10-21-2022 ALP [Catalytic activity/Vol] 124 U/L 45-117 [facility] ALT [Catalytic activity/Vol] 32 U/L 13-56 [facility] CO2 [Moles/Vol] 26.0 mmol/L 21.0-32.0 [facility] Globulin (S) [Mass/Vol] 3.5 g/dL 2.2-4.2 [facility] Urea nitrogen/Creatinine [Mass ratio] 24.0 mg/mg 10-20 [facility] Laboratory - Hematology and Cell countsOrdered By: Dr. Cuellar on 10-21-2022 Erythrocyte distribution width (RBC) [Entitic vol] 44.4 fL 35.1-43.9 [facility] Erythrocyte distribution width (RBC) [Ratio] 13.0 % 11.6-14.6 [facility] Immature granulocytes/100 WBC (Bld) 0.200 % 0.0-0.9 [facility] Comment on above: IG% - Immature Granu locytes (promyelocytes, myelocytes and metamyelocytes) > 1% indicates that a LEFT SHIFT is Present. MCH (RBC) [Entitic mass] 30.7 pg 27.0-32.0 [facility] Nucleated RBC/100 WBC (Bld) [Ratio] 0 % 0-5 [facility] MCHC Auto (RBC) [Mass/Vol]Or dered By: Dr. Cuellar on 10-21-2022 MCHC (RBC) [Mass/Vol] 33.4 g/dL 32-36 [facility] No Panel InformationOrdered By: Dr. Cuellar on 10-21-2022 Estimated GFR (MDRD) Amer 85 mL/min >60 [facility] Comment on above: GFR Calc Estimated GFR (MDRD) Non-Af Amer 70 mL/min >60 [facility] Comment on above: Non- GFR Calc Thyroid Stimulating Hormone (TSH) 0.88 uIU/mL 0.358-3.74 [facility] Vitamin D 25-Hydroxy 26.6 ng/mL [facility] Comment on above: Vitamin D 25(OH) Sta tus Range Deficiency <20 ng/mL (50nmol/L) Insufficiency 20 - 30 ng/mL (50 - 75 nmol/L) Sufficiency 30 - 100 ng/mL (75 - 250 nmol/L) Toxicity >100 ng/mL (>250 nmol/L) Platelets bldOrdered By: Dr. Cuellar on 10-21-2022 Platelets (Bld) [#/Vol] 195 10*3/uL 150-450 [facility] Serum or plasma albumin shamar urement (mass/volume)Ordered By: Dr. Cuellar on 10-21-2022 Albumin [Mass/Vol] 3.7 g/dL 3.2-5.0 [facility] Serum or plasma albumin/glob ulin mass ratioOrdered By: Dr. Cuellar on 10-21-2022 Albumin/Globulin [Mass ratio] 1.1 {ratio} 0.9-2.4 [facility] Serum or plasma calcium shamar urement (mass/volume)Ordered By: Dr. Cuellar on 10-21-2022 Calcium [Mass/Vol] 9.0 mg/dL 8.5-10.1 [facility] Serum or plasma creatinine m easurement (mass/volume)Ordered By: Dr. Cuellar on 10-21-2022 Creatinine [Mass/Vol] 0.83 mg/dL 0.55-1.02 [facility] Comment on above: The validity of the calculated GFR & GFRAA in patients over 70 years has not been determined. Clinical correlation is essential. Serum or plasma urea nitroge n measurement (mass/volume)Ordered By: Dr. Cuellar on 10-21-2022 Urea nitrogen [Mass/Vol] 20 mg/dL 7-18 [facility] Thin prep Papanicolaou smear with manual screeningOrdered By: Dr. Cuellar on 10-21-2022 Thin prep Papanicolaou smear with manual screening 28 U/L 15-37 [facility] Thin prep Papanicolaou smear with manual screening 9 5-15 [facility] Culture, urineOrdered By: Dr Curtis Cuellar on 10-15-2022 Bacteria identified Cx Nom (U) Positive [facility] Absolute lymphocyte countOrd ered By: Dr. Cuellar on 10-14-2022 Lymphocytes Auto (Unsp spec) [#/Vol] 2.06 10*3/uL 0.83-4.51 [facility] Basophil percentageOrdered B y: Dr. Cuellar on 10-14-2022 Basophils/100 WBC (Bld) 0.7 % 0-1 [facility] Bilirubin [Mass/Vol] 0.20 mg/dL 0.20-1.00 [facility] Comment on above: For patients on eltr ombopag therapy, use of Dimension [place] TBIL is not recommended. Chloride [Moles/Vol] 102 mmol/L 98-107 [facility] Eosinophils/100 WBC (Bld) 1.5 % 0-5 [facility] Glucose [Mass/Vol] 109 mg/dL 74-106 [facility] Comment on above: Fasting Glucose resu lt from 100 to 125 mg/dL suggests IMPAIRED HOMEOSTASIS per A.D.A. criteria. Neutrophils (Bld) [#/Vol] 4.4 10*3/uL 2.0-7.7 [facility] Neutrophils/100 WBC (Bld) 61.1 % 47-70 [facility] Potassium [Moles/Vol] 3.7 mmol/L 3.5-5.1 [facility] Protein [Mass/Vol] 7.2 g/dL 6.4-8.2 [facility] Sodium [Moles/Vol] 138 mmol/L 136-145 [facility] WBC (Bld) [#/Vol] 7.2 10*3/uL 4.4-11.0 [facility] Blood erythrocytes count (nu mber/volume)Ordered By: Dr. Cuellar on 10-14-2022 RBC (Bld) [#/Vol] 4.30 10*6/uL 4.2-5.4 [facility] Blood hemoglobin measurement (mass/volume)Ordered By: Dr. Cuellar on 10-14-2022 Hemoglobin (Bld) [Mass/Vol] 13.3 g/dL 12.0-15. 0 [facility] Blood lymphocytes/100 leukoc ytesOrdered By: Dr. Cuellar on 10-14-2022 Lymphocytes/100 WBC (Bld) 28.5 % 19-41 [facility] Blood monocytes/100 leukocyt esOrdered By: Dr. Cuellar on 10-14-2022 Monocytes/100 WBC (Bld) 7.9 % 0-10 [facility] Blood platelet mean volumeOr dered By: Dr. Cuellar on 10-14-2022 Platelet mean volume (Bld) [Entitic vol] 10.2 fL 6.2-12.0 [facility] Determination of erythrocyte mean corpuscular volume (MCV)Ordered By: Dr. Cuellar on 10-14-2022 MCV (RBC) [Entitic vol] 94.4 fL 81-99 [facility] Hematocrit Auto (Bld) [Volum e fraction]Ordered By: Dr. Cuellar on 10-14-2022 Hematocrit (Bld) [Volume fraction] 40.6 % 37-47 [facility] Laboratory - Chemistry and C hemistry - challengeOrdered By: Dr. Cuellar on 10-14-2022 ALP [Catalytic activity/Vol] 136 U/L 45-117 [facility] ALT [Catalytic activity/Vol] 32 U/L 13-56 [facility] CO2 [Moles/Vol] 29.0 mmol/L 21.0-32.0 [facility] Globulin (S) [Mass/Vol] 3.5 g/dL 2.2-4.2 [facility] Urea nitrogen/Creatinine [Mass ratio] 19.1 mg/mg 10-20 [facility] Laboratory - Hematology and Cell countsOrdered By: Dr. Cuellar on 10-14-2022 Erythrocyte distribution width (RBC) [Entitic vol] 44.7 fL 35.1-43.9 [facility] Erythrocyte distribution width (RBC) [Ratio] 12.9 % 11.6-14.6 [facility] Immature granulocytes/100 WBC (Bld) 0.300 % 0.0-0.9 [facility] Comment on above: IG% - Immature Granu locytes (promyelocytes, myelocytes and metamyelocytes) > 1% indicates that a LEFT SHIFT is Present. MCH (RBC) [Entitic mass] 30.9 pg 27.0-32.0 [facility] Nucleated RBC/100 WBC (Bld) [Ratio] 0 % 0-5 [facility] MCHC Auto (RBC) [Mass/Vol]Or dered By: Dr. Cuellar on 10-14-2022 MCHC (RBC) [Mass/Vol] 32.8 g/dL 32-36 [facility] No Panel InformationOrdered By: Dr. Cuellar on 10-14-2022 Estimated GFR (MDRD) Amer 79 mL/min >60 [facility] Comment on above: GFR Calc Estimated GFR (MDRD) Non-Af Amer 65 mL/min >60 [facility] Comment on above: Non- GFR Calc Platelets bldOrdered By: Dr. Cuellar on 10-14-2022 Platelets (Bld) [#/Vol] 209 10*3/uL 150-450 [facility] Serum or plasma albumin shamar urement (mass/volume)Ordered By: Dr. Cuellar on 10-14-2022 Albumin [Mass/Vol] 3.7 g/dL 3.2-5.0 [facility] Serum or plasma albumin/glob ulin mass ratioOrdered By: Dr. Cuellar on 10-14-2022 Albumin/Globulin [Mass ratio] 1.1 {ratio} 0.9-2.4 [facility] Serum or plasma calcium shamar urement (mass/volume)Ordered By: Dr. Cuellar on 10-14-2022 Calcium [Mass/Vol] 9.0 mg/dL 8.5-10.1 [facility] Serum or plasma creatinine m easurement (mass/volume)Ordered By: Dr. Cuellar on 10-14-2022 Creatinine [Mass/Vol] 0.89 mg/dL 0.55-1.02 [facility] Comment on above: The validity of the calculated GFR & GFRAA in patients over 70 years has not been determined. Clinical correlation is essential. Serum or plasma urea nitroge n measurement (mass/volume)Ordered By: Dr. Cuellar on 10-14-2022 Urea nitrogen [Mass/Vol] 17 mg/dL 7-18 [facility] Thin prep Papanicolaou smear with manual screeningOrdered By: Dr. Cuellar on 10-14-2022 Thin prep Papanicolaou smear with manual screening 26 U/L 15-37 [facility] Thin prep Papanicolaou smear with manual screening 7 5-15 [facility] Laboratory - Microbiology an d Antimicrobial susceptibilityon 01-31-2022 SARS-CoV-2 (COVID-19) RNA ANIKA+probe Ql (Unsp spec) Not detected Not Detect [facility] Work Phone: Comment on above: Normal Reference Ran ge: Not DetectedMethod:(RT-PCR) real-time reverse transcriptase PCRLuminex LENORE Instrument*The Food and Drug Administration (FDA) has issued an Emergency Use Authorization (EAU) for the LENORE SARS-CoV-2 Assay for the rapid detection of the virus that causes COVID-19. This test has been validated, but the FDAs independent review of this validation is pending.*Negative results do not preclude infection and should not be used as the sole basis for treatment or patient management. Optimum specimen types and timing for peak viral levels during infections caused by SARS-CoV-2 have not been determined. Collection of multiple specimens from the same patient may be necessary to detect the virus. The possibility of a false negative result should be considered if the patient has clinical presentation or has had recent exposure. No Panel Informationon 01-31 Influenza Types A,B Direct FA (MICHELLE) [facility] Work Phone: Absolute lymphocyte counton 01-17-2022 Lymphocytes Auto (Unsp spec) [#/Vol] 1.42 10*3/uL 0.83-4.51 [facility] Work Phone: Basophil percentageon 2021 Basophils/100 WBC (Bld) 0.7 % 0-1 [facility] Work Phone: Chloride [Moles/Vol] 101 mmol/L 98-107 [facility] Work Phone: Eosinophils/100 WBC (Bld) 3.0 % 0-5 [facility] Work Phone: Glucose [Mass/Vol] 159 mg/dL 74-106 [facility] Work Phone: Comment on above: Fasting Glucose resu lt greater than or equal to 126 mg/dL suggests DIABETES MELLITUS per A.D.A. criteria. Neutrophils (Bld) [#/Vol] 3.3 10*3/uL 2.0-7.7 [facility] Work Phone: Neutrophils/100 WBC (Bld) 61.2 % 47-70 [facility] Work Phone: Potassium [Moles/Vol] 4.3 mmol/L 3.5-5.1 [facility] Work Phone: Sodium [Moles/Vol] 137 mmol/L 136-145 [facility] Work Phone: WBC (Bld) [#/Vol] 5.4 10*3/uL 4.4-11.0 [facility] Work Phone: Blood erythrocytes count (nu mber/volume)on 01-17-2022 RBC (Bld) [#/Vol] 4.15 10*6/uL 4.2-5.4 [facility] Work Phone: Blood hemoglobin measurement (mass/volume)on 01-17-2022 Hemoglobin (Bld) [Mass/Vol] 13.2 g/dL 12.0-15. 0 [facility] Work Phone: Blood lymphocytes/100 leukoc yteson 01-17-2022 Lymphocytes/100 WBC (Bld) 26.5 % 19-41 [facility] Work Phone: Blood monocytes/100 leukocyt eson 01-17-2022 Monocytes/100 WBC (Bld) 8.2 % 0-10 [facility] Work Phone: Blood platelet mean volumeon 01-17-2022 Platelet mean volume (Bld) [Entitic vol] 9.9 fL 6.2-12.0 [facility] Work Phone: Determination of erythrocyte mean corpuscular volume (MCV)on 01-17-2022 MCV (RBC) [Entitic vol] 96.6 fL 81-99 [facility] Work Phone: [phone] Hematocrit Auto (Bld) [Volum e fraction]on 01-17-2022 Hematocrit (Bld) [Volume fraction] 40.1 % 37-47 [facility] Work Phone: Laboratory - Chemistry and C hemistry - challengeon 01-17-2022 CK [Catalytic activity/Vol] 79 U/L 26-192 [facility] Work Phone: CO2 [Moles/Vol] 33.0 mmol/L 21.0-32.0 [facility] Work Phone: Myoglobin [Mass/Vol] 37 ng/mL [facility] Work Phone: Comment on above: Performed at: [place] [id number] Director: Huber Wise PhD, Phone: [phone] Natriuretic peptide B (Bld) [Mass/Vol] 50.1 pg/mL 0-100 [facility] Work Phone: Urea nitrogen/Creatinine [Mass ratio] 10.7 mg/mg 10-20 [facility] Work Phone: Laboratory - Hematology and Cell countson 01-17-2022 Erythrocyte distribution width (RBC) [Entitic vol] 48.8 fL 35.1-43.9 [facility] Work Phone: Erythrocyte distribution width (RBC) [Ratio] 13.6 % 11.6-14.6 [facility] Work Phone: Immature granulocytes/100 WBC (Bld) 0.400 % 0.0-0.9 [facility] Work Phone: Comment on above: IG% - Immature Granu locytes (promyelocytes, myelocytes and metamyelocytes) > 1% indicates that a LEFT SHIFT is Present. MCH (RBC) [Entitic mass] 31.8 pg 27.0-32.0 [facility] Work Phone: Nucleated RBC/100 WBC (Bld) [Ratio] 0 % 0-5 [facility] Work Phone: MCHC Auto (RBC) [Mass/Vol]on 01-17-2022 MCHC (RBC) [Mass/Vol] 32.9 g/dL 32-36 [facility] Work Phone: No Panel Informationon 01-17 D-Dimer Quantitative (PE/DVT) 0.43 FEU/ug/m 0.27-0.49 [facility] Work Phone: Comment on above: NORMAL D-Dimer level (<0.50) indicates no DVT or PE. Estimated GFR (MDRD) Amer 67 mL/min >60 [facility] Work Phone: Comment on above: GFR Calc Estimated GFR (MDRD) Non-Af Amer 55 mL/min >60 [facility] Work Phone: Comment on above: Non- GFR Calc Troponin I High Sensitivity 5 pg/mL 3.0-54.0 [facility] Work Phone: Comment on above: Please Note: New Lola t Units and Gender Specific Reference Ranges. For more information see Policy Stat Procedure [place] High Sensitivity Troponin (TNIH) and attachments. Platelets bldon 01-17-2022 Platelets (Bld) [#/Vol] 196 10*3/uL 150-450 [facility] Work Phone: Serum or plasma calcium shamar urement (mass/volume)on 01-17-2022 Calcium [Mass/Vol] 9.0 mg/dL 8.5-10.1 [facility] Work Phone: Serum or plasma creatinine m easurement (mass/volume)on 01-17-2022 Creatinine [Mass/Vol] 1.03 mg/dL 0.55-1.02 [facility] Work Phone: Comment on above: The validity of the calculated GFR & GFRAA in patients over 70 years has not been determined. Clinical correlation is essential. Serum or plasma urea nitroge n measurement (mass/volume)on 01-17-2022 Urea nitrogen [Mass/Vol] 11 mg/dL 7-18 [facility] Work Phone: Thin prep Papanicolaou smear with manual screeningon 01-17-2022 Thin prep Papanicolaou smear with manual screening 3 5-15 [facility] Work Phone: Absolute lymphocyte counton 01-16-2022 Lymphocytes Auto (Unsp spec) [#/Vol] 1.40 10*3/uL 0.83-4.51 [facility] Work Phone: Basophil percentageon 2021 Basophil percentage 0 SEEN /hpf [facility] Work Phone: Basophils/100 WBC (Bld) 0.8 % 0-1 [facility] Work Phone: Bilirubin [Mass/Vol] 0.50 mg/dL 0.20-1.00 [facility] Work Phone: Comment on above: For patients on eltr ombopag therapy, use of Dimension [place] TBIL is not recommended. Chloride [Moles/Vol] 101 mmol/L 98-107 [facility] Work Phone: [phone] Eosinophils/100 WBC (Bld) 2.4 % 0-5 [facility] Work Phone: Glucose [Mass/Vol] 92 mg/dL 74-106 [facility] Work Phone: [phone] Neutrophils (Bld) [#/Vol] 3.0 10*3/uL 2.0-7.7 [facility] Work Phone: Neutrophils/100 WBC (Bld) 59.9 % 47-70 [facility] Work Phone: Potassium [Moles/Vol] 3.7 mmol/L 3.5-5.1 [facility] Work Phone: Protein [Mass/Vol] 7.0 g/dL 6.4-8.2 [facility] Work Phone: Sodium [Moles/Vol] 139 mmol/L 136-145 [facility] Work Phone: WBC (Bld) [#/Vol] 5.1 10*3/uL 4.4-11.0 [facility] Work Phone: [phone] Bilirubin Test strip Ql (U)o n 01-16-2022 Bilirubin Ql (U) Negative Negative [facility] Work Phone: [phone] Blood erythrocytes count (nu mber/volume)on 01-16-2022 RBC (Bld) [#/Vol] 4.09 10*6[facility]uL 4.2-5.[facility]: [phone] Blood hemoglobin measurement (mass/volume)on 01-16-2022 Hemoglobin (Bld) [Mass/Vol] 13.1 g/dL 12.0-15. 0 [facility] Work Phone: Blood lymphocytes/100 leukoc yteson 01-16-2022 Lymphocytes/100 WBC (Bld) 27.6 % 19-41 [facility] Work Phone: Blood monocytes/100 leukocyt eson 01-16-2022 Monocytes/100 WBC (Bld) 9.1 % 0-10 [facility] Work Phone: Blood platelet mean volumeon 01-16-2022 Platelet mean volume (Bld) [Entitic vol] 10.1 fL 6.2-12.0 [facility] Work Phone: [phone] Determination of erythrocyte mean corpuscular volume (MCV)on 01-16-2022 MCV (RBC) [Entitic vol] 97.6 fL 81-99 [facility] Work Phone: Hematocrit Auto (Bld) [Volum e fraction]on 01-16-2022 Hematocrit (Bld) [Volume fraction] 39.9 % 37-47 [facility] Work Phone: Ketones Test strip Ql (U)on 01-16-2022 Ketones Ql (U) Negative Negative [facility] Work Phone: Laboratory - Chemistry and C hemistry - challengeon 01-16-2022 ALP [Catalytic activity/Vol] 110 U/L 45-117 [facility] Work Phone: [phone] ALT [Catalytic activity/Vol] 37 U/L 13-56 [facility] Work Phone: [phone] CO2 [Moles/Vol] 30.0 mmol/L 21.0-32.0 [facility] Work Phone: [phone] Globulin (S) [Mass/Vol] 3.2 g/dL 2.2-4.2 [facility] Work Phone: [phone] Urea nitrogen/Creatinine [Mass ratio] 11.9 mg/mg 10-20 [facility] Work Phone: [phone] Laboratory - Hematology and Cell countson 01-16-2022 Erythrocyte distribution width (RBC) [Entitic vol] 49.0 fL 35.1-43.9 [facility] Work Phone: [phone] Erythrocyte distribution width (RBC) [Ratio] 13.5 % 11.6-14.6 [facility] Work Phone: [phone] Immature granulocytes/100 WBC (Bld) 0.200 % 0.0-0.9 [facility] Work Phone: [phone] Comment on above: IG% - Immature Granu locytes (promyelocytes, myelocytes and metamyelocytes) > 1% indicates that a LEFT SHIFT is Present. MCH (RBC) [Entitic mass] 32.0 pg 27.0-32.0 [facility] Work Phone: [phone] Nucleated RBC/100 WBC (Bld) [Ratio] 0 % 0-5 [facility] Work Phone: MCHC Auto (RBC) [Mass/Vol]on 01-16-2022 MCHC (RBC) [Mass/Vol] 32.8 g/dL 32-36 [facility] Work Phone: Mucus LM Ql (Urine sed)on Mucus Ql (Urine sed) 0 SEEN /hpf [facility] Work Phone: Nitrite Test strip Ql (U)on 01-16-2022 Nitrite Ql (U) Negative Negative [facility] Work Phone: No Panel Informationon 01-16 Estimated Creatinine Clearance Calc 39.26 ml/min [facility] Work Phone: Estimated GFR (MDRD) Amer 76 mL/min >60 [facility] Work Phone: Comment on above: GFR Calc Estimated GFR (MDRD) Non-Af Amer 63 mL/min >60 [facility] Work Phone: Comment on above: Non- GFR Calc Platelets bldon 01-16-2022 Platelets (Bld) [#/Vol] 200 10*3/uL 150-450 [facility] Work Phone: Protein Test strip Ql (U)on 01-16-2022 Protein Ql (U) Negative Negative [facility] Work Phone: Serum or plasma albumin shamar urement (mass/volume)on 01-16-2022 Albumin [Mass/Vol] 3.8 g/dL 3.2-5.0 [facility] Work Phone: Serum or plasma albumin/glob ulin mass ratioon 01-16-2022 Albumin/Globulin [Mass ratio] 1.2 {ratio} 0.9-2.4 [facility] Work Phone: Serum or plasma calcium shamar urement (mass/volume)on 01-16-2022 Calcium [Mass/Vol] 9.1 mg/dL 8.5-10.1 [facility] Work Phone: Serum or plasma creatinine m easurement (mass/volume)on 01-16-2022 Creatinine [Mass/Vol] 0.92 mg/dL 0.55-1.02 [facility] Work Phone: Comment on above: The validity of the calculated GFR & GFRAA in patients over 70 years has not been determined. Clinical correlation is essential. Serum or plasma urea nitroge n measurement (mass/volume)on 01-16-2022 Urea nitrogen [Mass/Vol] 11 mg/dL 7-18 [facility] Work Phone: Squamous epithelial cells de tection in urine sediment by light microscopyon 01-16-2022 Epithelial cells.squamous LM Ql (Urine sed) 0 SEEN /hpf [facility] Work Phone: Thin prep Papanicolaou smear with manual screeningon 01-16-2022 Thin prep Papanicolaou smear with manual screening 25 U/L 15-37 [facility] Work Phone: Thin prep Papanicolaou smear with manual screening 8 5-15 [facility] Work Phone: Urine blood detectionon - RBC Ql (U) Negative Negative [facility] Work Phone: RBC Ql (U) 0 SEEN /hpf [facility] Work Phone: Urine clarityon 01-16-2022 Clarity (U) Clear Clear [facility] Work Phone: Urine color determinationon 01-16-2022 Color (U) Straw Yellow [facility] Work Phone: Urine glucose detectionon Glucose Ql (U) Normal mg/dl Normal [facility] Work Phone: Urine leukocyte esterase det ection by dipstickon 01-16-2022 Leukocyte esterase Test strip Ql (U) 25 /ul Negative [facility] Work Phone: Urine pHon 01-16-2022 pH (U) 8.0 [pH] [facility] Work Phone: Urine sediment bacteria coun t by microscopy (number/high power field)on 01-16-2022 Bacteria LM.HPF (Urine sed) [#/Area] 0 /[HPF] None Seen [facility] Work Phone: [phone] Urine specific gravity measu rementon 01-16-2022 Specific gravity (U) [Rel density] 1.010 [facility] Work Phone: [phone] Urobilinogen Auto test strip Ql (U)on 01-16-2022 Urobilinogen Ql (U) Normal mg/dl Normal [facility] Work Phone: [phone] Absolute lymphocyte counton 01-10-2022 Lymphocytes Auto (Unsp spec) [#/Vol] 1.95 10*3/uL 0.83-4.51 [facility] Work Phone: [phone] Basophil percentageon 2021 Basophils/100 WBC (Bld) 0.9 % 0-1 [facility] Work Phone: [phone] Bilirubin [Mass/Vol] 0.30 mg/dL 0.20-1.00 [facility] Work Phone: [phone] Comment on above: For patients on eltr ombopag therapy, use of Dimension [place] TBIL is not recommended. Chloride [Moles/Vol] 101 mmol/L 98-107 [facility] Work Phone: Eosinophils/100 WBC (Bld) 1.9 % 0-5 [facility] Work Phone: [phone] Glucose [Mass/Vol] 105 mg/dL 74-106 [facility] Work Phone: [phone] Comment on above: Fasting Glucose resu lt from 100 to 125 mg/dL suggests IMPAIRED HOMEOSTASIS per A.D.A. criteria. Neutrophils (Bld) [#/Vol] 3.2 10*3/uL 2.0-7.7 [facility] Work Phone: [phone] Neutrophils/100 WBC (Bld) 54.0 % 47-70 [facility] Work Phone: [phone] Potassium [Moles/Vol] 4.2 mmol/L 3.5-5.1 [facility] Work Phone: [phone] Protein [Mass/Vol] 7.2 g/dL 6.4-8.2 [facility] Work Phone: Sodium [Moles/Vol] 138 mmol/L 136-145 [facility] Work Phone: WBC (Bld) [#/Vol] 5.8 10*3/uL 4.4-11.0 [facility] Work Phone: Blood erythrocytes count (nu mber/volume)on 01-10-2022 RBC (Bld) [#/Vol] 4.36 10*6/uL 4.2-5.4 [facility]: [phone] Blood hemoglobin measurement (mass/volume)on 01-10-2022 Hemoglobin (Bld) [Mass/Vol] 13.8 g/dL 12.0-15. 0 [facility] Work Phone: Blood lymphocytes/100 leukoc yteson 01-10-2022 Lymphocytes/100 WBC (Bld) 33.4 % 19-41 [facility] Work Phone: Blood monocytes/100 leukocyt eson 01-10-2022 Monocytes/100 WBC (Bld) 9.6 % 0-10 [facility] Work Phone: Blood platelet mean volumeon 01-10-2022 Platelet mean volume (Bld) [Entitic vol] 10.0 fL 6.2-12.0 [facility] Work Phone: [phone] Determination of erythrocyte mean corpuscular volume (MCV)on 01-10-2022 MCV (RBC) [Entitic vol] 96.1 fL 81-99 [facility] Work Phone: Hematocrit Auto (Bld) [Volum e fraction]on 01-10-2022 Hematocrit (Bld) [Volume fraction] 41.9 % 37-47 [facility] Work Phone: [phone] Laboratory - Chemistry and C hemistry - challengeon 01-10-2022 ALP [Catalytic activity/Vol] 119 U/L 45-117 [facility] Work Phone: ALT [Catalytic activity/Vol] 38 U/L 13-56 [facility] Work Phone: CO2 [Moles/Vol] 32.0 mmol/L 21.0-32.0 [facility] Work Phone: [phone] Globulin (S) [Mass/Vol] 3.4 g/dL 2.2-4.2 [facility] Work Phone: [phone] Urea nitrogen/Creatinine [Mass ratio] 16.9 mg/mg 10-20 [facility] Work Phone: [phone] Laboratory - Hematology and Cell countson 01-10-2022 Erythrocyte distribution width (RBC) [Entitic vol] 48.7 fL 35.1-43.9 [facility] Work Phone: [phone] Erythrocyte distribution width (RBC) [Ratio] 13.6 % 11.6-14.6 [facility] Work Phone: Immature granulocytes/100 WBC (Bld) 0.200 % 0.0-0.9 [facility] Work Phone: Comment on above: IG% - Immature Granu locytes (promyelocytes, myelocytes and metamyelocytes) > 1% indicates that a LEFT SHIFT is Present. MCH (RBC) [Entitic mass] 31.7 pg 27.0-32.0 [facility] Work Phone: Nucleated RBC/100 WBC (Bld) [Ratio] 0 % 0-5 [facility] Work Phone: MCHC Auto (RBC) [Mass/Vol]on 01-10-2022 MCHC (RBC) [Mass/Vol] 32.9 g/dL 32-36 [facility] Work Phone: No Panel Informationon 01-10 Estimated Creatinine Clearance Calc 40.27 ml/min [facility] Work Phone: Estimated GFR (MDRD) Amer 74 mL/min >60 [facility] Work Phone: Comment on above: GFR Calc Estimated GFR (MDRD) Non-Af Amer 61 mL/min >60 [facility] Work Phone: Comment on above: Non- GFR Calc Thyroid Stimulating Hormone (TSH) 1.34 uIU/mL 0.358-3.74 [facility] Work Phone: Platelets bldon 01-10-2022 Platelets (Bld) [#/Vol] 223 10*3/uL 150-450 [facility] Work Phone: Serum or plasma albumin shamar urement (mass/volume)on 01-10-2022 Albumin [Mass/Vol] 3.8 g/dL 3.2-5.0 [facility] Work Phone: Serum or plasma albumin/glob ulin mass ratioon 01-10-2022 Albumin/Globulin [Mass ratio] 1.1 {ratio} 0.9-2.4 [facility] Work Phone: Serum or plasma calcium shamar urement (mass/volume)on 01-10-2022 Calcium [Mass/Vol] 9.1 mg/dL 8.5-10.1 [facility] Work Phone: Serum or plasma creatinine m easurement (mass/volume)on 01-10-2022 Creatinine [Mass/Vol] 0.94 mg/dL 0.55-1.02 [facility] Work Phone: Comment on above: The validity of the calculated GFR & GFRAA in patients over 70 years has not been determined. Clinical correlation is essential. Serum or plasma urea nitroge n measurement (mass/volume)on 01-10-2022 Urea nitrogen [Mass/Vol] 16 mg/dL 7-18 [facility] Work Phone: Thin prep Papanicolaou smear with manual screeningon 01-10-2022 Thin prep Papanicolaou smear with manual screening 28 U/L 15-37 [facility] Work Phone: Thin prep Papanicolaou smear with manual screening 5 5-15 [facility] Work Phone: Laboratory - Microbiology an d Antimicrobial susceptibilityon 01-09-2022 SARS-CoV-2 (COVID-19) RNA ANIKA+probe Ql (Unsp spec) Not detected Not Detect [facility] Work Phone: Comment on above: Normal Reference Ran ge: Not DetectedMethod:(RT-PCR) real-time reverse transcriptase PCRLuminex LENORE Instrument*The Food and Drug Administration (FDA) has issued an Emergency Use Authorization (EAU) for the LENORE SARS-CoV-2 Assay for the rapid detection of the virus that causes COVID-19. This test has been validated, but the FDAs independent review of this validation is pending.*Negative results do not preclude infection and should not be used as the sole basis for treatment or patient management. Optimum specimen types and timing for peak viral levels during infections caused by SARS-CoV-2 have not been determined. Collection of multiple specimens from the same patient may be necessary to detect the virus. The possibility of a false negative result should be considered if the patient has clinical presentation or has had recent exposure. No Panel Informationon 01-09 Influenza Types A,B Direct FA (MICHELLE) [facility] Work Phone: [phone] Absolute lymphocyte counton 11-06-2021 Lymphocytes Auto (Unsp spec) [#/Vol] 2.34 10*3/uL 0.83-4.51 [facility] Work Phone: [phone] Basophil percentageon 2021 Basophils/100 WBC (Bld) 0.5 % 0-1 [facility] Work Phone: [phone] Chloride [Moles/Vol] 100 mmol/L 98-107 [facility] Work Phone: [phone] Eosinophils/100 WBC (Bld) 0.9 % 0-5 [facility] Work Phone: [phone] Glucose [Mass/Vol] 199 mg/dL 74-106 [facility] Work Phone: Comment on above: Fasting Glucose resu lt greater than or equal to 126 mg/dL suggests DIABETES MELLITUS per A.D.A. criteria. Neutrophils (Bld) [#/Vol] 6.7 10*3/uL 2.0-7.7 [facility] Work Phone: [phone] Neutrophils/100 WBC (Bld) 66.8 % 47-70 [facility] Work Phone: Potassium [Moles/Vol] 4.6 mmol/L 3.5-5.1 [facility] Work Phone: Sodium [Moles/Vol] 137 mmol/L 136-145 [facility]: [phone] WBC (Bld) [#/Vol] 10.0 10*3/uL 4.4-11.0 [facility] Work Phone: Blood erythrocytes count (nu mber/volume)on 11-06-2021 RBC (Bld) [#/Vol] 4.52 10*6/uL 4.2-5.4 [facility] Work Phone: [phone] Blood hemoglobin measurement (mass/volume)on 11-06-2021 Hemoglobin (Bld) [Mass/Vol] 14.3 g/dL 12.0-15. 0 [facility] Work Phone: Blood lymphocytes/100 leukoc yteson 11-06-2021 Lymphocytes/100 WBC (Bld) 23.4 % 19-41 [facility] Work Phone: Blood monocytes/100 leukocyt eson 11-06-2021 Monocytes/100 WBC (Bld) 7.7 % 0-10 [facility] Work Phone: Blood platelet mean volumeon 11-06-2021 Platelet mean volume (Bld) [Entitic vol] 10.7 fL 6.2-12.0 [facility] Work Phone: [phone] Determination of erythrocyte mean corpuscular volume (MCV)on 11-06-2021 MCV (RBC) [Entitic vol] 96.7 fL 81-99 [facility] Work Phone: [phone] Hematocrit Auto (Bld) [Volum e fraction]on 11-06-2021 Hematocrit (Bld) [Volume fraction] 43.7 % 37-47 [facility] Work Phone: [phone] Laboratory - Chemistry and C hemistry - challengeon 11-06-2021 CO2 [Moles/Vol] 34.0 mmol/L 21.0-32.0 [facility] Work Phone: Urea nitrogen/Creatinine [Mass ratio] 22.3 mg/mg 10-20 [facility] Work Phone: Laboratory - Hematology and Cell countson 11-06-2021 Erythrocyte distribution width (RBC) [Entitic vol] 47.3 fL 35.1-43.9 [facility] Work Phone: Erythrocyte distribution width (RBC) [Ratio] 13.2 % 11.6-14.6 [facility] Work Phone: Immature granulocytes/100 WBC (Bld) 0.700 % 0.0-0.9 [facility] Work Phone: Comment on above: IG% - Immature Granu locytes (promyelocytes, myelocytes and metamyelocytes) > 1% indicates that a LEFT SHIFT is Present. MCH (RBC) [Entitic mass] 31.6 pg 27.0-32.0 [facility] Work Phone: Nucleated RBC/100 WBC (Bld) [Ratio] 0 % 0-5 [facility] Work Phone: MCHC Auto (RBC) [Mass/Vol]on 11-06-2021 MCHC (RBC) [Mass/Vol] 32.7 g/dL 32-36 [facility] Work Phone: No Panel Informationon 11-06 Estimated GFR (MDRD) Amer 70 mL/min >60 [facility] Work Phone: Comment on above: GFR Calc Estimated GFR (MDRD) Non-Af Amer 58 mL/min >60 [facility] Work Phone: Comment on above: Non- GFR Calc Platelets bldon 11-06-2021 Platelets (Bld) [#/Vol] 244 10*3/uL 150-450 [facility] Work Phone: Serum or plasma calcium shamar urement (mass/volume)on 11-06-2021 Calcium [Mass/Vol] 9.1 mg/dL 8.5-10.1 [facility] Work Phone: Serum or plasma creatinine m easurement (mass/volume)on 11-06-2021 Creatinine [Mass/Vol] 0.99 mg/dL 0.55-1.02 [facility] Work Phone: Comment on above: The validity of the calculated GFR & GFRAA in patients over 70 years has not been determined. Clinical correlation is essential. Serum or plasma urea nitroge n measurement (mass/volume)on 11-06-2021 Urea nitrogen [Mass/Vol] 22 mg/dL 7-18 [facility] Work Phone: Thin prep Papanicolaou smear with manual screeningon 11-06-2021 Thin prep Papanicolaou smear with manual screening 3 - [facility] Work Phone: Laboratory - Microbiology an d Antimicrobial susceptibilityon 10-30-2021 SARS-CoV-2 (COVID-19) RNA ANIKA+probe Ql (Unsp spec) Not detected Not Detect [facility] Work Phone: Comment on above: Normal Reference Ran ge: Not DetectedMethod:(RT-PCR) real-time reverse transcriptase PCRLuminex LENORE Instrument*The Food and Drug Administration (FDA) has issued an Emergency Use Authorization (EAU) for the LENORE SARS-CoV-2 Assay for the rapid detection of the virus that causes COVID-19. This test has been validated, but the FDAs independent review of this validation is pending.*Negative results do not preclude infection and should not be used as the sole basis for treatment or patient management. Optimum specimen types and timing for peak viral levels during infections caused by SARS-CoV-2 have not been determined. Collection of multiple specimens from the same patient may be necessary to detect the virus. The possibility of a false negative result should be considered if the patient has clinical presentation or has had recent exposure. No Panel Informationon 10-30 Influenza Types A,B Direct FA (MICHELLE) [facility] Work Phone: Absolute lymphocyte counton 10-18-2021 Lymphocytes Auto (Unsp spec) [#/Vol] 1.79 10*3/uL 0.83-4.51 [facility] Work Phone: Basophil percentageon 2021 Basophils/100 WBC (Bld) 0.6 % 0-1 [facility] Work Phone: Bilirubin [Mass/Vol] 0.30 mg/dL 0.20-1.00 [facility] Work Phone: [phone] Comment on above: For patients on eltr ombopag therapy, use of Dimension [place] TBIL is not recommended. Chloride [Moles/Vol] 101 mmol/L 98-107 [facility] Work Phone: Eosinophils/100 WBC (Bld) 0.8 % 0-5 [facility] Work Phone: Glucose [Mass/Vol] 115 mg/dL 74-106 [facility] Work Phone: [phone] Comment on above: Fasting Glucose resu lt from 100 to 125 mg/dL suggests IMPAIRED HOMEOSTASIS per A.D.A. criteria. Neutrophils (Bld) [#/Vol] 3.9 10*3/uL 2.0-7.7 [facility] Work Phone: Neutrophils/100 WBC (Bld) 61.9 % 47-70 [facility] Work Phone: Potassium [Moles/Vol] 3.7 mmol/L 3.5-5.1 [facility] Work Phone: Protein [Mass/Vol] 7.4 g/dL 6.4-8.2 [facility] Work Phone: Sodium [Moles/Vol] 137 mmol/L 136-145 [facility] Work Phone: WBC (Bld) [#/Vol] 6.3 10*3/uL 4.4-11.0 [facility] Work Phone: Blood erythrocytes count (nu mber/volume)on 10-18-2021 RBC (Bld) [#/Vol] 4.42 10*6/uL 4.2-5.4 [facility] Work Phone: Blood hemoglobin measurement (mass/volume)on 10-18-2021 Hemoglobin (Bld) [Mass/Vol] 13.7 g/dL 12.0-15. 0 [facility] Work Phone: Blood lymphocytes/100 leukoc yteson 10-18-2021 Lymphocytes/100 WBC (Bld) 28.5 % 19-41 [facility] Work Phone: Blood monocytes/100 leukocyt eson 10-18-2021 Monocytes/100 WBC (Bld) 8.0 % 0-10 [facility] Work Phone: [phone] Blood platelet mean volumeon 10-18-2021 Platelet mean volume (Bld) [Entitic vol] 10.8 fL 6.2-12.0 [facility] Work Phone: [phone] Determination of erythrocyte mean corpuscular volume (MCV)on 10-18-2021 MCV (RBC) [Entitic vol] 94.1 fL 81-99 [facility] Work Phone: [phone] Hematocrit Auto (Bld) [Volum e fraction]on 10-18-2021 Hematocrit (Bld) [Volume fraction] 41.6 % 37-47 [facility] Work Phone: Laboratory - Chemistry and C hemistry - challengeon 10-18-2021 ALP [Catalytic activity/Vol] 133 U/L 45-117 [facility] Work Phone: [phone] ALT [Catalytic activity/Vol] 43 U/L 13-56 [facility] Work Phone: [phone] CO2 [Moles/Vol] 31.0 mmol/L 21.0-32.0 [facility] Work Phone: [phone] Globulin (S) [Mass/Vol] 3.5 g/dL 2.2-4.2 [facility] Work Phone: [phone] Urea nitrogen/Creatinine [Mass ratio] 17.7 mg/mg 10-20 [facility] Work Phone: [phone] Laboratory - Hematology and Cell countson 10-18-2021 Erythrocyte distribution width (RBC) [Entitic vol] 45.2 fL 35.1-43.9 [facility] Work Phone: Erythrocyte distribution width (RBC) [Ratio] 13.0 % 11.6-14.6 [facility] Work Phone: Immature granulocytes/100 WBC (Bld) 0.200 % 0.0-0.9 [facility] Work Phone: Comment on above: IG% - Immature Granu locytes (promyelocytes, myelocytes and metamyelocytes) > 1% indicates that a LEFT SHIFT is Present. MCH (RBC) [Entitic mass] 31.0 pg 27.0-32.0 [facility] Work Phone: Nucleated RBC/100 WBC (Bld) [Ratio] 0 % 0-5 [facility] Work Phone: MCHC Auto (RBC) [Mass/Vol]on 10-18-2021 MCHC (RBC) [Mass/Vol] 32.9 g/dL 32-36 [facility] Work Phone: No Panel Informationon 10-18 Estimated GFR (MDRD) Amer 91 mL/min >60 [facility] Work Phone: Comment on above: GFR Calc Estimated GFR (MDRD) Non-Af Amer 75 mL/min >60 [facility] Work Phone: Comment on above: Non- GFR Calc Thyroid Stimulating Hormone (TSH) 0.78 uIU/mL 0.358-3.74 [facility] Work Phone: Vitamin D 25-Hydroxy 30.8 ng/mL [facility] Work Phone: Comment on above: Vitamin D 25(OH) Sta tus Range Deficiency <20 ng/mL (50nmol/L) Insufficiency 20 - 30 ng/mL (50 - 75 nmol/L) Sufficiency 30 - 100 ng/mL (75 - 250 nmol/L) Toxicity >100 ng/mL (>250 nmol/L) Platelets bldon 10-18-2021 Platelets (Bld) [#/Vol] 215 10*3/uL 150-450 [facility] Work Phone: Serum or plasma albumin shamar urement (mass/volume)on 10-18-2021 Albumin [Mass/Vol] 3.9 g/dL 3.2-5.0 [facility] Work Phone: Serum or plasma albumin/glob ulin mass ratioon 10-18-2021 Albumin/Globulin [Mass ratio] 1.1 {ratio} 0.9-2.4 [facility] Work Phone: Serum or plasma calcium shamar urement (mass/volume)on 10-18-2021 Calcium [Mass/Vol] 8.7 mg/dL 8.5-10.1 [facility] Work Phone: Serum or plasma creatinine m easurement (mass/volume)on 10-18-2021 Creatinine [Mass/Vol] 0.79 mg/dL 0.55-1.02 [facility] Work Phone: Comment on above: The validity of the calculated GFR & GFRAA in patients over 70 years has not been determined. Clinical correlation is essential. Serum or plasma urea nitroge n measurement (mass/volume)on 10-18-2021 Urea nitrogen [Mass/Vol] 14 mg/dL 7-18 [facility] Work Phone: Thin prep Papanicolaou smear with manual screeningon 10-18-2021 Thin prep Papanicolaou smear with manual screening 28 U/L 15-37 [facility] Work Phone: Thin prep Papanicolaou smear with manual screening 5 5-15 [facility] Work Phone: CNPAraceli 07-01-2019 MAREN Telephone (FVPRAD) REYES PONCE ( ) 1945 F Date Time Provider Department 07/01/19 LUCRECIA JOHNSON (BART) FVPRAD During your visit today, we recorded the following information about you: Lucrecia Johnson MD, MD 07/01/2019 1:40 PM Signed Telephone Call Note 1:28 PM I spoke with Ms. Ponce. She reports that she is doing well with the pessary, but doesn't want to use it long-term. She does report feeling much better with it in, and she is having less urinary urgency. She is glad she has it because of her upcoming travels. She will be gone for three weeks and back on 08/10 for her follow-up visit with Dr. Babin. She is interested in proceeding with surgery after she is back. Desires [place] [facility]. Discussed that we can arrange a surgical date and then schedule her for pre-op appointments and UDS. She was in agreement with this. Wants to have surgery at [facility]. Message sent to [place] to contact pt to schedule. Lucrecia Johnson MD FPS Fellow 07/01/2019 CC: Dr. Babin Allergies As of Date: 07/01/2019 Noted Allergy Reaction AMBIEN (ZOLPIDEM TARTRATE) 09/24/2006 Comments: hallucinations CODEINE 04/03/2006 Comments: "tight band around heand AND couldn't breath" DARVOCET-N 100 (PROPOXYPHENE N-AC*05/18/2008 5 - Intolerance Comments: severe nightmares HYTRIN (TERAZOSIN HCL) 04/03/2006 Comments: swelling of face IODINE 04/03/2006 Comments: "face swelling" after used in a scan but uses betadine and iodine and eats shellfish without problems NEURONTIN (GABAPENTIN) 03/08/2014 1 - Mental Status Change VICODIN (HYDROCODONE-ACETAMINO PHE*05/18/2008 5 - Intolerance Comments: very bad nightmares Date Reviewed: 06/11/2019 Reviewed by: Mary Stroud RN - Fully Assessed Reason for Visit: Follow Up [171] Order(s):SURGICAL REQUEST - ELECTIVE [[id number]] Order #: [id number]: 1 Prescriptions as of 07/01/2019 Sig: CARVEDILOL 12.5 MG TABLET Take 1.5 tablets by mouth twi* Patient not taking: Reported on 06/11/2019 ATORVASTATIN 20 MG TABLET Take 1 tablet by mouth once d* Patient not taking: Reported on 06/11/2019 OMEPRAZOLE 20 MG CAPSULE,GERRY* Take 1 capsule by mouth daily* ASPIRIN 81 MG TABLET,DELAYED * Take 1 tablet by mouth once d* RANITIDINE 150 MG TABLET Take 1 tablet by mouth twice * Patient not taking: Reported on 12/28/2018 Problem List As Of Date 07/01/2019 Noted Resolved ESOPHAGEAL REFLUX [K21.9] More... 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 CVA (cerebrovascular accident) (HCC) [I63.9] INVALID FOR*10/21/2018 More... Encephalomalacia on imaging study [G93.89] INVALID FOR* More... Encounter Status:Closed by LUCRECIA JOHNSON MD on 07/01/19 [facility] Vital Signs Date Time Vital Sign Value Performing Clinician Faci lity 04-14-2025 16:45-0400 Body temperature 98.6 [degF] Dr. North Cuellar MD Work Phone: [facility] 04-14-2025 16:45-0400 Diastolic blood pressure 55 mm[Hg] Dr. North Cuellar MD Work Phone: [facility] 04-14-2025 16:45-0400 Heart rate 84 /min Dr. North Cuellar MD Work Phone: [facility] 04-14-2025 16:45-0400 Respiratory rate 14 /min Dr. North Cuellar MD Work Phone: [facility] 04-14-2025 16:45-0400 SaO2% (BldA) [Mass fraction] 100 % Dr. North Cuellar MD Work Phone: [facility] 04-14-2025 16:45-0400 Systolic blood pressure 141 mm[Hg] Dr. North Cuellar MD Work Phone: [facility] 04-14-2025 15:57-0400 Body height 152.[address] North Cuellar MD Work Phone: [facility] 04-14-2025 15:57-0400 Body mass index (BMI) [Ratio] 30.8 kg/m2 Dr. North Cuellar MD Work Phone: [facility] 04-14-2025 15:57-0400 Body weight 71.[address] North Cuellar MD Work Phone: [facility] 10-05-2024 15:39-0500 Body height 157.5 cm Flaquito Brito MD Work Phone: [facility] 10-05-2024 15:39-0500 Body mass index (BMI) [Ratio] 27.44 kg/m2 Flaquito Brito MD Work Phone: [facility] 10-05-2024 15:39-0500 Body weight 68.04 kg Flaquito Brito MD Work Phone: [facility] 08-28-2024 08:59-0500 Body temperature 97 [degF] Dr. North Cuellar MD Work Phone: [facility] 08-28-2024 08:59-0500 Diastolic blood pressure 89 mm[Hg] Dr. North Cuellar MD Work Phone: [facility] 08-28-2024 08:59-0500 Heart rate 71 /min Dr. North Cuellar MD Work Phone: [facility] 08-28-2024 08:59-0500 Respiratory rate 18 /min Dr. North Cuellar MD Work Phone: 5(623)320-326132 [place] [address] 08-28-2024 08:59-0500 SaO2% (BldA) [Mass fraction] 96 % Dr. North Cuellar MD Work Phone: 3(465)596-646932 [place] [address] 08-28-2024 08:59-0500 Systolic blood pressure 156 mm[Hg] Dr. North Cuellar MD Work Phone: 9(206)107-060594 [place] [address] 08-28-2024 08:26-0500 Inhaled oxygen flow rate 2 L/min Dr. North Cuellar MD Work Phone: 0(354)379-876194 [place] [address] 08-28-2024 05:56-0500 Body mass index (BMI) [Ratio] 29.8 kg/m2 Dr. North Cuellar MD Work Phone: 2(249)633-496394 [place] [address] 08-28-2024 05:56-0500 Body weight 69.[address] North Cuellar MD Work Phone: 2(964)002-646094 [place] [address] 08-27-2024 11:23-0500 Body height 152.[address] North Cuellar MD Work Phone: 0(999)390-599894 [place] [address] 05-30-2023 19:34-0400 Body mass index (BMI) [Ratio] 29 kg/m2 Dr. North Cuellar Work Phone: 7(550)642-921494 [place] [address] 05-30-2023 19:34-0400 Body weight [address] North Cuellar Work Phone: 6(270)031-741894 [place] [address] 05-30-2023 19:33-0400 Diastolic blood pressure 87 mm[Hg] Dr. North Cuellar Work Phone: 6(716)010-450194 [place] [address] 05-30-2023 19:33-0400 Heart rate 70 /min Dr. North Cuellar Work Phone: 7(262)635-420532 [place] [address] 05-30-2023 19:33-0400 Respiratory rate 16 /min Dr. North Cuellar Work Phone: 2(606)458-500832 [place] [address] 05-30-2023 19:33-0400 SaO2% (BldA) [Mass fraction] 95 % Dr. North Cuellar Work Phone: [facility] 05-30-2023 19:33-0400 Systolic blood pressure 135 mm[Hg] Dr. North Cuellar Work Phone: [facility] 05-30-2023 16:50-0400 Body height 157.[address] North Cuellar Work Phone: [facility] 05-30-2023 16:50-0400 Body temperature 96.7 [degF] Dr. North Cuellar Work Phone: [facility] 04-08-2023 09:37-0400 Body height 157.[address] MD Work Phone: [facility] 04-08-2023 09:37-0400 Body weight [address] MD Work Phone: [facility] 04-08-2023 09:37-0400 Diastolic blood pressure 86 mm[Hg] Justin Street MD Work Phone: [facility] 04-08-2023 09:37-0400 Heart rate 71 /min Justin Street MD Work Phone: [facility] 04-08-2023 09:37-0400 SaO2% (BldA) [Mass fraction] 95 % Justin Street MD Work Phone: [facility] 04-08-2023 09:37-0400 Systolic blood pressure 133 mm[Hg] Justin Street MD Work Phone: [facility] 03-18-2023 22:09-0400 Body temperature 97.9 [degF] Dr. North Cuellar Work Phone: [facility] 03-18-2023 22:09-0400 Diastolic blood pressure 107 mm[Hg] Dr. North Cuellar Work Phone: [facility] 03-18-2023 22:09-0400 Heart rate 74 /min Dr. North Cuellar Work Phone: [facility] 03-18-2023 22:09-0400 Respiratory rate 16 /min Dr. North Cuellar Work Phone: [facility] 03-18-2023 22:09-0400 SaO2% (BldA) [Mass fraction] 96 % Dr. North Cuellar Work Phone: [facility] 03-18-2023 22:09-0400 Systolic blood pressure 151 mm[Hg] Dr. North Cuellar Work Phone: [facility] 03-18-2023 20:39-0400 Inhaled oxygen flow rate 2 L/min Dr. North Cuellar Work Phone: 4(185)476-101932 [place] [address] 03-18-2023 16:42-0400 Body height 157.[address] North Cuellar Work Phone: 4(161)952-210132 [place] [address] 03-18-2023 16:42-0400 Body mass index (BMI) [Ratio] 28.6 kg/m2 Dr. North Cuellar Work Phone: [facility] 03-18-2023 16:42-0400 Body weight 71.[address] North Cuellar Work Phone: [facility] 03-03-2023 05:30-0400 Heart rate 98 /min Dr. North Cuellar Work Phone: [facility] 03-03-2023 05:30-0400 Respiratory rate 15 /min Dr. North Cuellar Work Phone: [facility] 03-03-2023 05:30-0400 SaO2% (BldA) [Mass fraction] 93 % Dr. North Cuellar Work Phone: [facility] 03-03-2023 01:56-0400 Body height 157.[address] North Cuellar Work Phone: [facility] 03-03-2023 01:56-0400 Body mass index (BMI) [Ratio] 29.2 kg/m2 Dr. North Cuellar Work Phone: [facility] 03-03-2023 01:56-0400 Body temperature 96.6 [degF] Dr. North Cuellar Work Phone: [facility] 03-03-2023 01:56-0400 Body weight 72.[address] North Cuellar Work Phone: [facility] 03-03-2023 01:56-0400 Diastolic blood pressure 100 mm[Hg] Dr. North Cuellar Work Phone: [facility] 03-03-2023 01:56-0400 Systolic blood pressure 131 mm[Hg] Dr. North Cuellar Work Phone: 3(309)197-664332 [place] [address] 03-01-2023 12:47-0400 Body mass index (BMI) [Ratio] 29.2 kg/m2 Dr. North Cuellar Work Phone: 2(403)485-379232 [place] [address] 03-01-2023 11:00-0400 Body temperature 97.8 [degF] Dr. North Cuellar Work Phone: 7(968)660-860432 [place] [address] 03-01-2023 11:00-0400 Diastolic blood pressure 95 mm[Hg] Dr. North Cuellar Work Phone: [facility] 03-01-2023 11:00-0400 Heart rate 73 /min Dr. North Cuellar Work Phone: 7(539)588-673032 [place] [address] 03-01-2023 11:00-0400 Respiratory rate 16 /min Dr. North Cuellar Work Phone: [facility] 03-01-2023 11:00-0400 SaO2% (BldA) [Mass fraction] 97 % Dr. North Cuellar Work Phone: 1(793)776-176032 [place] [address] 03-01-2023 11:00-0400 Systolic blood pressure 150 mm[Hg] Dr. North Cuellar Work Phone: [facility] 02-27-2023 18:12-0400 Body weight 72.[address] North Cuellar Work Phone: [facility] 02-27-2023 17:00-0400 Body temperature 97.6 [degF] Dr. North Cuellar Work Phone: [facility] 02-27-2023 17:00-0400 Diastolic blood pressure 106 mm[Hg] Dr. North Cuellar Work Phone: [facility] 02-27-2023 17:00-0400 Heart rate 85 /min Dr. North Cuellar Work Phone: [facility] 02-27-2023 17:00-0400 Respiratory rate 19 /min Dr. North Cuellar Work Phone: [facility] 02-27-2023 17:00-0400 SaO2% (BldA) [Mass fraction] 91 % Dr. North Cuellar Work Phone: 6(902)996-511732 [place] [address] 02-27-2023 17:00-0400 Systolic blood pressure 149 mm[Hg] Dr. North Cuellar Work Phone: 1(635)143-756932 [place] [address] 02-27-2023 14:23-0400 Body height 157.[address] North Cuellar Work Phone: 4(183)024-737632 [place] [address] 02-27-2023 14:23-0400 Body mass index (BMI) [Ratio] 29.2 kg/m2 Dr. North Cuellar Work Phone: 5(929)840-703032 [place] [address] 02-27-2023 14:23-0400 Body weight 72.[address] North Cuellar Work Phone: [facility] 02-04-2023 21:17-0400 Diastolic blood pressure 78 mm[Hg] Dr. North Cuellar Work Phone: [facility] 02-04-2023 21:17-0400 Heart rate 73 /min Dr. North Cuellar Work Phone: 6(122)935-284632 [place] [address] 02-04-2023 21:17-0400 Respiratory rate 16 /min Dr. North Cuellar Work Phone: [facility] 02-04-2023 21:17-0400 SaO2% (BldA) [Mass fraction] 97 % Dr. North Cuellar Work Phone: [facility] 02-04-2023 21:17-0400 Systolic blood pressure 147 mm[Hg] Dr. North Cuellar Work Phone: [facility] 02-04-2023 19:18-0400 Body height 157.[address] North Cuellar Work Phone: [facility] 02-04-2023 19:18-0400 Body mass index (BMI) [Ratio] 29.7 kg/m2 Dr. North Cuellar Work Phone: [facility] 02-04-2023 19:18-0400 Body temperature 97.2 [degF] Dr. North Cuellar Work Phone: 8(572)736-799532 [place] [address] 02-04-2023 19:18-0400 Body weight 73.[address] North Cuellar Work Phone: 0(873)415-067087 [address] 01-28-2023 13:09-0400 Body mass index (BMI) [Ratio] 30 kg/m2 Dr. North Cuellar Work Phone: 9(082)253-288332 [place] [address] 01-28-2023 13:09-0400 Body weight 72.[address] North Cuellar Work Phone: 0(943)278-710187 [address] 01-28-2023 13:09-0400 Diastolic blood pressure 90 mm[Hg] Dr. North Cuellar Work Phone: 7(435)548-855187 [address] 01-28-2023 13:09-0400 Heart rate 71 /min Dr. North Cuellar Work Phone: [facility] 01-28-2023 13:09-0400 Respiratory rate 18 /min Dr. North Cuellar Work Phone: [facility] 01-28-2023 13:09-0400 SaO2% (BldA) [Mass fraction] 94 % Dr. North Cuellar Work Phone: [facility] 01-28-2023 13:09-0400 Systolic blood pressure 145 mm[Hg] Dr. North Cuellar Work Phone: 7(787)629-075632 [place] [address] 01-30-2022 14:34-0400 Body height 154.[address] North Cuellar Work Phone: [facility] Work Phone: 01-30-2022 14:34-0400 Body mass index (BMI) [Ratio] 30 kg/m2 Dr. North Cuellar Work Phone: [facility] Work Phone: 01-30-2022 14:34-0400 Body weight 72.[address] North Cuellar Work Phone: [facility] Work Phone: 01-30-2022 14:34-0400 Diastolic blood pressure 80 mm[Hg] Dr. North Cuellar Work Phone: [facility] Work Phone: 01-30-2022 14:34-0400 Respiratory rate 18 /min Dr. North Cuellar Work Phone: [facility] Work Phone: 01-30-2022 14:34-0400 SaO2% (BldA) [Mass fraction] 93 % Dr. North Cuellar Work Phone: [facility] Work Phone: 01-30-2022 14:34-0400 Systolic blood pressure 122 mm[Hg] Dr. North Cuellar Work Phone: [facility] Work Phone: 01-16-2022 17:02-0400 Diastolic blood pressure 74 mm[Hg] [facility] Work Phone: 01-16-2022 17:02-0400 Heart rate 74 /min [facility] Work Phone: 01-16-2022 17:02-0400 Respiratory rate 17 /min [facility] Work Phone: 01-16-2022 17:02-0400 SaO2% (BldA) [Mass fraction] 98 % [facility] Work Phone: 01-16-2022 17:02-0400 Systolic blood pressure 148 mm[Hg] [facility] Work Phone: 01-16-2022 14:23-0400 Body height 154.94 cm [facility] Work Phone: 01-16-2022 14:23-0400 Body mass index (BMI) [Ratio] 29.5 kg/m2 [facility] Work Phone: 01-16-2022 14:23-0400 Body temperature 98.1 [degF] [facility] Work Phone: 01-16-2022 14:23-0400 Body weight 70.76 kg [facility] Work Phone: 01-10-2022 11:28-0400 Body temperature 96.5 [degF] [facility] Work Phone: 01-10-2022 11:28-0400 Diastolic blood pressure 95 mm[Hg] [facility] Work Phone: 01-10-2022 11:28-0400 Heart rate 73 /min [facility] Work Phone: 01-10-2022 11:28-0400 Respiratory rate 16 /min [facility] Work Phone: 01-10-2022 11:28-0400 SaO2% (BldA) [Mass fraction] 95 % [facility] Work Phone: 01-10-2022 11:28-0400 Systolic blood pressure 152 mm[Hg] [facility] Work Phone: 01-10-2022 09:08-0400 Body height 157.48 cm [facility] Work Phone: 01-10-2022 09:08-0400 Body mass index (BMI) [Ratio] 28.9 kg/m2 [facility] Work Phone: 01-10-2022 09:08-0400 Body weight 71.66 kg [facility] Work Phone: Encounters Encounter Date Encounter Type Care Provider Facility Start: 04-14-2025 End: 04-14-2025 Emergency department patient visit Dr. North Cuellar MD Work Phone: -Emergency Department Work Phone: Start: 03-22-2025 Non-patient / Non-visit Dr. Collette blas MD -[facility] Work Phone: Start: 02-23-[address] Kike Mills i, MD -Physical Therapy Work Phone: Start: 02-23-2025 ambulatory Kike Ralph Facility:[facility] Start: 11-25-2024 End: 11-25-[address] North Cuellar MD Work Phone: [facility] Work Phone: Start: 11-25-2024 End: 11-25-[address] 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 North Cuellar MD -Laboratory Work Phone: Start: 11-09-2024 End: 11-09-2024 ambulatory [facility] Facility:[facility] Start: 10-13-2024 End: 10-13-[address] North Cuellar MD -Cat Scan, [facility] Work Phone: Start: 10-13-2024 End: 10-13-2024 ambulatory [facility] Facility:[facility] Start: 10-05-2024 End: 10-05-2024 Patient encounter procedure Flaquito Brito MD Work Phone: Urology Comment on above: Sensory urge inconti nence (Primary Dx); Urinary frequency [R35.0] Start: 10-05-2024 End: 10-05-2024 ambulatory FLAQUITO BRITO Facility:[id number] Start: 10-01-2024 End: 10-01-2024 Telephone encounter Flaquito Brito MD Work Phone: Urology Comment on above: Appointment Start: 09-06-2024 End: 09-06-[address] North Cuellar MD -Cat Scan, [facility] Work Phone: Start: 09-06-2024 End: 09-06-2024 ambulatory [facility] Facility:[facility] Start: 08-28-2024 Non-patient / Non-visit Dr. Adis Walker MD -[facility] Work Phone: Start: 08-27-2024 ambulatory [facility] Facility:[facility] Start: 08-27-2024 Non-patient / Non-visit Dr. Constantino DYE -[facility] Start: 08-27-2024 Non-patient / Non-visit Dr. Adis Walker MD -[facility] Work Phone: Start: 08-26-2024 ambulatory [facility] Facility:[facility] Start: 08-26-2024 End: 08-28-2024 Evaluation and management of inpatient Dr. Adis Walker MD -Progressive Care Unit Work Phone: Start: 08-25-2024 End: 08-25-[address] North Cuellar MD -Cat Scan, [facility] Work Phone: Start: 08-25-2024 End: 08-25-2024 ambulatory [facility] Facility:[facility] Start: 05-17-2024 End: 05-17-2024 ambulatory [facility] Facility:[facility] Start: 05-14-2024 End: 05-14-2024 ambulatory North Cuellar Facility:[facility] Start: 04-26-2024 End: 04-26-2024 ambulatory North Cuellar Facility:[facility] Start: 01-26-2024 End: 01-26-[address] North Cuellar Work Phone: [facility] Work Phone: Start: 01-26-2024 End: 01-26-[address] North Cuellar Work Phone: [facility] Work Phone: Start: 11-19-2023 End: 11-19-[address] North Cuellar Work Phone: [facility] Work Phone: Start: 11-19-2023 End: 11-19-[address] North Cuellar Work Phone: [facility]-Laboratory, Phy Office 3rd Flr Start: 11-13-2023 End: 11-13-[address] North Cuellar Work Phone: [facility] Work Phone: Start: 11-13-2023 End: 11-13-[address] North Cuellar Work Phone: [facility]-Pulmonary Services/Neurology Work Phone: Start: 11-11-2023 End: 11-11-[address] North Cuellar Work Phone: [facility]-Laboratory, Phy Office 3rd Flr Start: 11-06-2023 Non-patient / Non-visit Dr. Salvatore Cuellar Work Phone: [facility] Work Phone: Start: 11-06-2023 End: 11-06-[address] North Cuellar Work Phone: [facility] Work Phone: Start: 11-06-2023 End: 11-06-[address] North Cuellar Work Phone: [facility] Work Phone: Start: 10-27-2023 End: 10-27-2023 ambulatory [facility] Work Phone: Start: 10-27-2023 End: 10-27-2023 [facility] Start: 08-08-2023 End: 08-08-2023 [facility] Work [facility] Start: 05-30-2023 End: 05-30-2023 Emergency department patient visit Dr. North Cuellar [facility] Start: 05-14-2023 End: 05-14-[address] North Cuellar Work Phone: [facility] Work Phone: Start: 05-14-2023 End: 05-14-[address] North Cuellar Work Phone: [facility] Work Phone: Start: 04-14-2023 End: 04-14-[address] North Cuellar Work Phone: [facility] Work Phone: Start: 04-14-2023 End: 04-14-[address] North Cuellar [facility] Start: 04-08-2023 End: 04-08-2023 ambulatory [facility] Facility:[facility] Start: 04-08-2023 End: 04-08-2023 Patient encounter procedure Justin [address] MD Work Phone: [facility] Comment on above: SDH (subdural hemato ma) (HCC) (Primary Dx) Start: 04-08-2023 End: 04-08-2023 Subsequent hospital visit by physician [facility]Spine RADIO CT SCAN [employer] Comment on above: Subdural bleeding (H CC) [I62.00] Start: 03-27-2023 End: 03-27-[address] North Cuellar Work Phone: [facility]-Laboratory, Phy Office 3rd Flr Start: 03-19-2023 Orders Only Darrick chaudhary PA-C Work Phone: [facility] [facility] Comment on above: Subdural bleeding (H CC) (Primary Dx) Start: 03-19-2023 End: 03-22-2023 Evaluation and management of inpatient LAYO BENSON Facility:[facility] Start: 03-18-2023 End: 03-18-2023 Emergency department patient visit Dr. North Cuellar Work Phone: [facility]-Emergency Department Start: 03-03-2023 End: 03-03-2023 Emergency department patient visit Dr. North Cuellar Work Phone: [facility]-Emergency Department Start: 03-01-2023 Non-patient / Non-visit Dr. Salvatore Cuellar Work Phone: [facility] Start: 02-28-2023 Non-patient / Non-visit Dr. Salvatore Cuellar Work Phone: [facility] Start: 02-28-2023 Non-patient / Non-visit Dr. Salvatore Cuellar Work Phone: [facility] Start: 02-27-2023 Non-patient / Non-visit Dr. Salvatore Cuellar Work Phone: [facility] Start: 02-27-2023 End: 03-01-2023 Evaluation and management of inpatient Dr. North Cuellar Work Phone: [facility]-Progressive Care Unit Start: 02-27-[address] North Cuellar Work Phone: [facility] Work Phone: Start: 02-07-2023 End: 02-07-[address] North Cuellar Work Phone: [facility] Work Phone: Start: 02-07-2023 End: 02-07-[address] North Cuellar Work Phone: [facility]-Pulmonary Services/Neurology Start: 02-04-2023 End: 02-05-2023 Emergency department patient visit Dr. North Cuellar Work Phone: [facility]-Emergency Department Start: 01-28-2023 End: 01-28-[address] North Cuellar Work Phone: [facility] Start: 12-04-[address] North sanchez Work Phone: [facility]-Physical Therapy Start: 10-28-2022 Registered Recurring [facility]Physical Therapy Start: 10-22-2022 Registered Recurring [facility]-Physical Therapy Start: 10-21-2022 End: 10-21-2022 ambulatory [facility] Work Phone: Start: 10-21-2022 End: 10-21-2022 Patient encounter procedure [facility]-Laboratory, Phy Office 3rd Flr Start: 10-14-2022 End: 10-14-2022 ambulatory [facility] Work Phone: Start: 10-14-2022 End: 10-14-2022 Patient encounter procedure [facility] Start: 01-31-2022 Non-patient / Non-visit Dr. Salvatore Cuellar Work Phone: [facility] Start: 01-31-2022 End: 01-31-[address] North Cuellar Work Phone: [facility]-Pulmonary Services/Neurology Start: 01-30-2022 End: 01-30-[address] North Cuellar Work Phone: [facility] Start: 01-29-2022 Non-patient / Non-visit Dr. Salvatore Cuellar Work Phone: [facility] Start: 01-29-2022 End: 01-29-[address] North Cuellar Work Phone: [facility]-Cardiovascula r Services Start: 01-29-2022 Non-patient / Non-visit Dr. Salvatore Cuellar Work Phone: [facility] Start: 01-29-2022 Non-patient / Non-visit Dr. Salvatore Cuellar Work Phone: [facility] Start: 01-17-2022 End: 01-17-2022 Patient encounter procedure [facility]-Cat Scan, [facility] Start: 01-16-2022 End: 01-16-2022 Emergency department patient visit [facility]-Emergency Department Start: 01-10-2022 End: 01-10-2022 Patient encounter procedure [facility]-MRI - [facility] Start: 01-10-2022 End: 01-10-2022 Patient encounter procedure [facility]-Medical Out Start: 01-09-2022 End: 01-09-2022 [facility] Start: 11-06-2021 End: 11-06-2021 Patient encounter procedure [facility]-Laboratory, Phy Office 3rd Flr Start: 10-30-2021 End: 10-30-2021 Patient encounter procedure [facility]-Pulmonary Services/Neurology Start: 10-18-2021 End: 10-18-2021 Patient encounter procedure [facility]-Laboratory, Phy Office 3rd Flr Procedures Date Procedure Procedure Detail Performing Clinician Start: 11-25-2024 CT angiography of ch est with contrast Dr. Nroth Cuellar MD Work Phone: Start: 11-16-2024 Urnls dip stick/tabl et rgnt auto w/o microscopy Flaquito Brito MD Work Phone: Start: 11-16-2024 BLADDER SCAN Flaquito Brito MD Work Phone: Start: 10-13-2024 Computed tomography of abdomen and pelvis with contrast Dr. North Cuellar MD Work Phone: Start: 10-05-2024 Urnls dip stick/tabl et rgnt auto w/o microscopy Flaquito Brito MD Work Phone: Start: 10-05-2024 BLADDER SCAN Flaquito Brito MD Work Phone: Start: 09-06-2024 CT of head without contrast Dr. North Cuellar MD Work Phone: Start: 08-27-2024 Cardiovascular stres s test using pharmacologic stress agent Dr. North Cuellar MD Work Phone: Start: 08-26-2024 CT cervical spine wi thout contrast Dr. North Cuellar MD Work Phone: Start: 08-26-2024 CT of head without contrast Dr. North Cuellar MD Work Phone: Start: 08-26-2024 CT of thorax, abdome n and pelvis with contrast Dr. North Cuellar MD Work Phone: Start: 08-26-[address] North sanchez MD Work Phone: Start: 08-25-2024 CT of head without contrast Dr. North Cuellar MD Work Phone: Start: 08-25-2024 X-ray of lumbosacral spine Dr. North Cuellar MD Work Phone: Start: 08-25-2024 Plain x-ray of pelvi s and lower extremity Dr. North Cuellar MD Work Phone: Start: 01-26-2024 MRI of brain without contrast Dr. North Cuellar Work Phone: Start: 11-13-2023 SARS-CoV-2, Influenz a & RSV (PCR) Dr. North Cuellar Work Phone: Start: 11-11-2023 Diagnostic radiograp hy of abdomen, decubitus and erect Dr. North Cuellar Work Phone: Start: 11-11-2023 Plain chest X-ray Dr. Seng Cuellar Work Phone: Start: 11-11-[address] North sanchez Work Phone: Start: 11-06-2023 CT angiography of ch est with contrast Dr. North Cuellar Work Phone: Start: 08-08-2023 Coronavirus COVID-19 PCR Start: 08-08-2023 Influenza Types A,B Direct FA (MICHELLE) Start: 08-08-2023 Respiratory syncytia l virus antigen assay Start: 05-30-2023 Radiography of thora cic spine Dr. North Cuellar Work Phone: Start: 05-30-2023 CT cervical spine wi thout contrast Dr. North Cuellar Work Phone: Start: 05-30-2023 CT of head without contrast Dr. North Cuellar Work Phone: Start: 05-14-2023 CT of chest without contrast Dr. North Cuellar Work Phone: Start: 05-14-2023 CT of head without contrast Dr. North Cuellar Work Phone: Start: 03-19-2023 Antibody screen DARRICK CARLSON Comment on above: Order Comment: Speci men Type: URINE SPECIMEN Ordering Facility: [facility] Address: [address] [place] [id number] Performed By: #### 3 [id number], [id number] #### [facility] CLIA [id number] [address] [place] Start: 03-18-2023 Plain chest X-ray Dr. Seng Cuellar Work Phone: Start: 03-18-2023 Plain X-ray of shoulder Dr. North Cuellar Work Phone: Start: 03-18-2023 Radiologic examinati on of knee Dr. North Cuellar Work Phone: Start: 03-18-2023 CT cervical spine wi thout contrast Dr. North Cuellar Work Phone: Start: 03-18-[address] North lucero Work Phone: Start: 03-18-2023 CT of head without contrast Dr. North Cuellar Work Phone: Start: 02-27-2023 MRI of brain without contrast Dr. North Cuellar Work Phone: Start: 02-27-2023 CT angiography of he ad and neck Dr. North Cuellar Work Phone: Start: 02-27-2023 CT of head without contrast Dr. North Cuellar Work Phone: Start: 02-07-2023 Influenza Types A,B Direct FA (MICHELLE) Dr. North Cuellar Work Phone: Start: 02-07-2023 Respiratory syncytia l virus antigen assay Dr. North Cuellar Work Phone: Start: 02-04-2023 CT of thorax, abdome n and pelvis with contrast Dr. North Cuellar Work Phone: Start: 02-04-2023 Plain chest X-ray Dr. Seng Cuellar Work Phone: Start: 10-14-2022 CT of head without contrast Start: 10-14-2022 Plain X-ray of shoulder Start: 10-14-2022 X-ray of radius and ulna Start: 10-14-2022 Plain x-ray of hand Start: 10-14-2022 Plain x-ray of wrist Start: 01-31-2022 Influenza Types A,B Direct FA (MICHELLE) Dr. North Cuellar Work Phone: Start: 01-31-2022 End: 01-31-2022 Respiratory syncytial virus antigen assay Dr. North Cuellar Work Phone: Start: 01-17-2022 Computed tomography of abdomen and pelvis with contrast Start: 01-10-2022 MRI of brain without contrast Start: 01-09-2022 Plain chest X-ray Start: 01-09-2022 CT of head without contrast Start: 01-09-2022 Influenza Types A,B Direct FA (MICHELLE) Start: 01-09-2022 End: 01-09-2022 Respiratory syncytial virus antigen assay Start: 10-30-2021 Influenza Types A,B Direct FA (MICHELLE) Start: 10-30-2021 End: 10-30-2021 Respiratory syncytial virus antigen assay Start: 10-30-2021 Plain chest X-ray Urine culture Plan of Treatment Date Care Activity Detail Author Start: 03-22-2026 DIABETES SCREEN DIABETES SCREEN [facility] Start: 03-22-2026 [facility] Start: 03-19-2026 DIABETES SCREEN DIABETES SCREEN [facility] Start: 04-14-2025 [facility] Start: 12-24-2024 End: 12-24-2024 Patient encounter procedure 12/24/2024 11:15 AM EDT Office Visit Urology [facility] [place] [place] [address] Flaquito Brito MD [address], [place] [id number] 4 week follow up Urology Comment on above: 4 week follow up Start: 11-16-2024 End: 11-16-2024 Patient encounter procedure 11/16/2024 3:30 PM EST Office Visit Urology [facility] [place] [place] [address] Flaquito Brito MD [address], [place] [address] 1 month follow up Urology Comment on above: 1 month follow up Start: 10-05-2024 End: 10-05-2024 Patient encounter procedure 10/05/2024 4:00 PM EST Office Visit Urology [facility] [place] [place] [address] Flaquito Brito MD [address], [place] [id number] UA,PVR Urology Comment on above: UA,PVR Start: 09-22-2024 Advance Directive Discussion Advance Directive Discussion [facility] Start: 08-28-2024 Patient discharge [facility] Start: 08-27-2024 Care regimes management [facility] Start: 08-27-2024 Notification of physician [facility] Start: 08-27-2024 [facility] Start: 08-27-2024 End: 08-27-2024 [facility] Start: 08-27-2024 Referral to service [facility] Start: 08-26-2024 Application of intermittent pneumatic compression device [facility] Start: 08-26-2024 Following clinical pathway protocol [facility] Start: 08-26-2024 Assessment of risk o f venous thromboembolism [facility] Start: 08-26-2024 Insertion of cathete r into peripheral vein [facility] Start: 08-26-2024 Measuring intake and output [facility] Start: 08-26-2024 Oxygen therapy [facility] Start: 08-26-2024 Providing care accor ding to standard [facility] Start: 08-26-2024 Provision of activit y privileges [facility] Start: 08-26-2024 Referral to occupati onal therapist [facility] Start: 08-26-2024 Referral to service [facility] Start: 08-26-2024 [facility] Start: 08-26-2024 Admission procedure [facility] Start: 08-26-2024 Hospital admission, emergency, from emergency room, medical nature [facility] Start: 08-26-2024 [facility] Start: 08-26-2024 Patient referral to dietitian [facility] Start: 05-23-2024 Covid-19 Vaccine ( season) Covid-19 Vaccine ( season) [facility] Start: 05-23-2024 Influenza vaccination Influenza Vacc ine (#1) [facility] Start: 05-23-2023 Influenza vaccination [facility] Start: 04-02-2023 End: 04-17-2024 CT BRAIN WO IVCON CT BRAIN WO IVCON Radiology Routine Subdural bleeding (HCC) Expected: 04/02/2023 (Approximate), Expires: 04/17/2024 [facility] Work Phone: Comment on above: Expected: 04/02/2023 (Approximate), Expires: 04/17/2024 Start: 03-03-2023 Control nasal hemorr pedro luis anterior simple CONTROL OF NOSEBLEED [facility] Start: 03-01-2023 Patient discharge [facility] Start: 02-28-2023 Care regimes management [facility] Start: 02-28-2023 Notification of physician [facility] Start: 02-28-2023 Telepractice consultation [facility] Start: 02-28-2023 [facility] Start: 02-28-2023 Care regimes management [facility] Start: 02-28-2023 Notification of physician [facility] Start: 02-28-2023 Thyroid stimulating hormone measurement [facility] Start: 02-27-2023 Following clinical pathway protocol [facility] Start: 02-27-2023 Ambulation without limitation [facility] Start: 02-27-2023 Assessment of risk o f venous thromboembolism [facility] Start: 02-27-2023 Cardiac monitoring [facility] Start: 02-27-2023 Catheterization of vein [facility] Start: 02-27-2023 Continuous pulse oximetry [facility] Start: 02-27-2023 Documentation procedure [facility] Start: 02-27-2023 Elevation of head of bed [facility] Start: 02-27-2023 Exercises [facility] Start: 02-27-[address] anned interventions [facility] Start: 02-27-2023 Insertion of cathete r into peripheral vein [facility] Start: 02-27-2023 Measuring intake and output [facility] Start: 02-27-2023 Notification of physician [facility] Start: 02-27-2023 Oxygen therapy [facility] Start: 02-27-2023 Providing care accor ding to standard [facility] Start: 02-27-2023 Referral to occupati onal therapist [facility] Start: 02-27-2023 Referral to service [facility] Start: 02-27-2023 Speech therapy assessment [facility] Start: 02-27-2023 Tobacco use cessatio n education [facility] Start: 02-27-2023 [facility] Start: 02-27-2023 Urinalysis complete panel - Urine [facility] Start: 02-27-2023 Admission procedure [facility] Start: 02-27-2023 [facility] Start: 02-27-2023 Oxygen therapy [facility] Start: 02-04-2023 [facility] Start: 09-22-2022 ADVANCE DIRECTIVE DISCUSSION ADVANCE DIRECTIVE DISCUSSION [facility] Start: 09-22-2022 DEPRESSION ASSESSMENT DEPRESSION ASS ESSMENT [facility] Start: 10-03-2021 COVID-19 VACCINE (4 - Booster for Pfizer series) COVID-19 VACCINE (4 - Booster for Pfizer series) [facility] Start: 10-03-2021 COVID-19 VACCINE (4 - Pfizer series) COVID-19 VACCINE (4 - Pfizer series) [facility] Start: 11-30-2020 ANNUAL PCP TEAM TROLLEY CAR MECHANIC QUINTON DISEASE VISIT ANNUAL PCP TEAM CHRONIC DISEASE VISIT [facility] Start: 04-20-2020 FECAL OCCULT BLOOD FECAL OCCULT BLOO D [facility] Start: 2020 RSV Vaccine (1 - 1-d ose 75+ series) RSV Vaccine (1 - 1-dose 75+ series) [facility] Start: 08-15-2011 Screening for osteoporosis Bone Density Screening [facility] Start: 2010 PNEUMOCOCCAL: 65+ (1 - PCV) PNEUMOCOCCAL: 65+ (1 - PCV) [facility] Start: 1995 Pneumococcal Vaccine : 50+ (1 of 1 - PCV) Pneumococcal Vaccine: 50+ (1 of 1 - PCV) [facility] Start: 1995 SHINGRIX VACCINE (1 of 2) BENITEZ GRIX VACCINE (1 of 2) [facility] Start: 1964 Urine microalbumin profile [facility] Start: 1963 BP CONTROLLED (<130/80) BP CON TROLLED (<130/80) [facility] Start: 1963 Depression Screening Depression Scre ening [facility] Bacteria identified in Urine by Culture BACTERIAL CULTURE, URINE Microbiology Routine Urinary frequency [R35.0] 10/05/2024 4:55 PM EST [facility] Work Phone: BLADDER SCAN BLADDER SCAN Procedures Routine Sensory urge incontinence [N39.41] Ordered: 11/16/2024 [facility] Work Phone: Comment on above: Ordered: 11/16/2024 CT BRAIN WO IVCON CT BRAIN WO IV CON Radiology Routine Subdural bleeding (HCC) 04/08/2023 9:14 AM EDT [facility] Work Phone: CTA Chest vessels WO and W contrast IV [facility] Magnesium [Mass/volu me] in Serum or Plasma [facility] Patient Education [facility] Work Phone: Patient referral [facility] Work Phone: UA DIP, URINE (POC) UA DIP, URIN E (POC) Lab Routine Sensory urge incontinence [N39.41] Ordered: 11/16/2024 [facility] Comment on above: Ordered: 11/16/2024 Immunizations Immunization Date Immunization Notes Care Provider [facility] 08-08-2021 Covid (Moderna) Dr. North Cuellar MD Work Phone: [facility] 12-21-2020 Covid (Pfizer) [facility] 11-30-2020 Covid (Pfizer) [facility] 09-03-2017 influenza virus vaccine, unspecified formulation Flaquito Brito MD Work Phone: [facility] Payers Date Payer Category Payer Medicare [id number] 2024 Self-pay [id number] 2018 Medicare MMO MEDICARE MMO MEDADVANTAGE O [id number] 2018-Present [phone] [address] [place] [address] [facility] [id number] 2018 Medicare (Managed Care) MMO [employer] [id number] 2016 Medicare [id number] Medicare [id number] Unknown [id number] Unknown [id number]. 2.462 Unknown [id number] [id number]. 2.462 Unknown [id number] 2.16840.1.377192.3.579. 2.462 Unknown [id number] 2.16840.1.668503.3.579. 2.462 Unknown [id number] 2.16840.1.572477.3.579. 2.462 Unknown [id number] 2.16840.1.094649.3.579. 2.462 Unknown [id number] 2.16840.1.831756.3.579. 2.462 Unknown [id number] [id number]. 2.462 Unknown [id number] 2.16840.1.112426.3.579. 2.462 Unknown [id number] 2.16840.1.501336.3.579. 2.462 Unknown [id number] 2.16840.1.920457.3.579. 2.462 Unknown [id number] [id number]. 2.462 Unknown [id number] [id number]. 2.462 Unknown [id number]. 2.462 Social History Date Type Detail Facility Start: 11-27-2019 End: 05-30-2023 Tobacco smoking status NHIS Unknown if ever smoked [facility] Start: 05-12-2017 None [facility] Start: 05-12-2017 Non-smoker [facility] Start: 1945 Sex Assigned At Female [facility] Start: 02-21-2011 End: 04-14-2025 Tobacco smoking status NYIS Never smoked tobacco [facility] Start: 02-21-2011 Tobacco use and exposure Smokeless tobacco non-user [facility] Start: 12-01-2019 End: 11-16-2024 Alcohol intake Current non-drinker of alcohol (finding) [facility] Start: 03-19-2023 History SDOH Food Worry 1 [facility] Start: 03-19-2023 History SDOH Transpo rt Med 2 [facility] Start: 1945 Sex Assigned At Not on file [facility] Start: 03-19-2023 End: 04-08-2023 History of Social function [facility] Start: 03-19-2023 End: 04-08-2023 Tobacco use panel [facility] PHQ2 Score 0 [facility] (I/We) worried wheth er (my/our) food would run out before (I/we) got money to buy more. Never true [facility] Work Phone: Start: 12-05-2024 Sex Female (finding) [facility] Medical Equipment Procedure Code Equipment Code Equipment Origin al Text Equipment Identifier Dates Sling Gynecare T vt Abbrevo Mini Prolene Plastic 12cm Gynecological Mesh - [id number] Start: 10-07-2019 Goals Date Patient Goal Desired Activity /State Functional Status Date Assessment Result Facility 12-07-2024 Functional status Ambulates;Artis r;Bathroom Privilege [facility] Work Phone: 03-22-2023 Are you deaf, or do you have serious difficulty hearing No 03/22/2023 9:11 PM Ab Luis, [facility] No [facility] 03-22-2023 Are you blind, or do you have serious difficulty seeing, even when wearing glasses No 03/22/2023 9:11 PM Ab Luis, RN No [facility] 03-22-2023 Do you have serious difficulty walking or climbing stairs No 03/22/2023 9:11 PM Ab Luis, RN No [facility] 03-22-2023 Do you have difficul ty dressing or bathing No 03/22/2023 9:11 PM Ab Luis, [facility] No [facility] 03-22-2023 Because of a physica l, mental, or emotional condition, do you have difficulty doing errands alone such as visiting a physician's office or shopping No 03/22/2023 9:11 PM Ab Luis, [facility] No [facility] 03-01-2023 Functional status Activity Abili ty Independent [facility] Work Phone: Mental Status Date Assessment Result Facility 08-28-2024 Cognitive function Voice/Name [facility] Work Phone: 03-22-2023 Because of a physica l, mental, or emotional condition, do you have serious difficulty concentrating, remembering, or making decisions No 03/22/2023 9:11 PM Ab Luis, [facility] No [facility] 03-01-2023 Cognitive function Voice/Name [facility] Work Phone: 02-27-2023 Cognitive function Awake;Alert;A ppropriate;Fol lows Commands [facility] Work Phone: 01-16-2022 Cognitive function Level Of Cons ciousness Awake;Alert;Follows Commands [facility] Work Phone: 01-10-2022 Cognitive function Voice/Name [facility] Work Phone: Clinical Notes 10-21-2018 to 11-25-2024 Flaquito Brito MD - 11/16/2024 5:34 PM Flaquito Crockett MD - 10/05/2024 4:52 PM ESTTelephone Encounter - Agnieszka Lizarraga - 10/01/2024 12:34 PM EST Note Date & Type Note Facility 11-25-2024 Radiology Diagnostic study note [facility] [address] [place] [address] CTA Chest W/WO Contrast MR#: [id number] Acct: [id number] Name: REYES PONCE Rep #: [id number] : 1945 F 79 From: Chikis Brady MD PCP: Dr. North Cuellar MD Status: DENG REAGAN Study:CTA Chest W/WO Contrast Date of Exam: 11/25/24 Exam# [id number] Ordering Dr: North Cuellar MD PROCEDURE: CTA CHEST WITH CONTRAST REASON FOR EXAM: FOLLOW-UP THORACIC AORTIC ANEURYSM. TECHNIQUE: Contiguous axial scans of 1.25 mm slice thicknesses. Sagittal and coronal reconstruction images were obtained. One or more dose reduction techniques were used (e.g., automated exposure control, adjustment of mA and/or kv according to patient size, use of iterative reconstruction technique). IV CONTRAST: Isovue 370, 76 mL. COMPARISON: CT chest dated 08/26/2024. FINDINGS: Lungs and Airways: The lungs are normally expanded and clear. Mild chronic interstitial fibrotic changes are again noted throughout both lungs. A few scattered areas of ground-glass opacification are noted in the bilateral lungs. Pleura: No pleural effusion. No pneumothorax. Heart: Normal heart size. No pericardial effusion. Pericardium: No thickening. Coronary arteries: Atherosclerotic calcific disease. Thoracic Aorta: Fusiform aneurysmal dilatation of the ascending aorta at 4.1 cm. Pulmonary Vessels: No large central filling defects. Contrast timing was optimized for evaluation of the aorta. Mediastinum: No mediastinal hilar or axillary lymphadenopathy. Thyroid:No nodules.. Upper Abdomen: Visualized portions of the upper abdominal viscera are unremarkable. Bones: Multilevel spondylosis CT/CTA Chest W/WO Contrast IMPRESSION: Stable fusiform aneurysmal dilatation of the ascending aorta. Chronic interstitial changes throughout both lungs. Scattered areas of ground-glass opacification are of undetermined significance but can indicate mild inflammation. Other nonacute findings detailed above. Reading Location: [place] [address] CC: Dr. North Cuellar MD ~ Advertising Designer: Signed [facility] 11-16-2024 Note HNO ID: [id number] Author: FLAQUITO BRITO MD Service: ? Author Type: Physician Type: Progress Notes Filed: 11/16/2024 17:42 Note Text: ESTABLISHED PATIENT OFFICE VISIT F/u UUI. The leakage has decreased with Oxybutynin but persists. She is having significant dry mouth. PVR is 13 cc. LAB RESULTS Creatinine Date Value Ref Range Status 03/22/2023 0.74 0.58 - 0.96 mg/dL Final No results found for: "PSA", PSASC GLUCOSE UA (POCT) (mg/dL) Date Value 11/16/2024 Negative BILIRUBIN UA (POCT) (no units) Date Value 11/16/2024 Negative KETONE UA (POCT) (mg/dL) Date Value 11/16/2024 Negative SPECIFIC GRAVITY UA (POCT) (no units) Date Value 11/16/2024 1.015 HEMOGLOBIN/BLOOD UA (POCT) (no units) Date Value 11/16/2024 Negative PH UA (POCT) (no units) Date Value 11/16/2024 6.0 PROTEIN UA (POCT) (mg/dL) Date Value 11/16/2024 Trace (A) UROBILINOGEN UA (POCT) (E.U./dL) Date Value 11/16/2024 0.2 NITRITE UA (POCT) (no units) Date Value 11/16/2024 Negative LEUKOCYTES UA (POCT) (no units) Date Value 11/16/2024 Negative COLOR UA (POCT) (no units) Date Value 11/16/2024 Yellow CLARITY UA (POCT) (no units) Date Value 11/16/2024 Clear ] ALLERGIES Allergen Reactions Ambien [Zolpidem Ta* hallucinations Bactrim [Sulfametho* Rash Codeine tight band around heand AND couldn't breath" Darvocet-N 100 [Pro* Intolerance severe nightmares Hytrin [Terazosin H* swelling of face Iodine Other: See Comments "face swelling" after used in a scan but uses betadine and iodine and eats shellfish without problems. Has had iodine tablets in the past without issue Neurontin [Gabapent* Mental Status Change Vicodin [Hydrocodon* Intolerance very bad nightmares MEDICATIONS: gabapentin (NEURONTIN) 100 mg capsule Take 100 mg by mouth at bedtime as needed. metoprolol succinate ER (TOPROL XL) 25 mg 24 hr tablet Take 25 mg by mouth daily at bedtime. naproxen (NAPROSYN) 250 mg tablet Take 250 mg by mouth two times a day. TAKE WITH FOOD. oxybutynin ER (DITROPAN XL) 10 mg 24 hr tablet Take 1 tablet by mouth once daily. atorvastatin (LIPITOR) 40 mg tablet Take 1 [...] Take 10 mg by mouth once daily. tolterodine ER (DETROL LA) 4 mg 24 hr capsule Take 1 capsule by mouth once daily. levETIRAcetam (KEPPRA) 500 mg tablet Take 1 tablet by mouth twice daily for 5 doses. REVIEW OF SYSTEMS GENERAL:no unintentional weight loss, malaise or fevers. NEUROLOGIC: pt is alert and oriented GASTROINTESTINAL: No nausea, vomiting, or diarrhea GENITOURINARY: see HPI MUSCULOSKELETAL: Negative for joint pain or swelling, back pain or muscle pain SKIN: Negative for lesions, rash, and itching. 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 [facility] 11-16-2024 History of Present illness Narrative ESTABLISHED PATIENT OFFICE VISIT F/u UUI. The leakage has decreased with Oxybutynin but persists. She is having significant dry mouth. PVR is 13 cc. LAB RESULTS Creatinine Date Value Ref Range Status 03/22/2023 0.74 0.58 - 0.96 mg/dL Final No results found for: "PSA", PSASC GLUCOSE UA (POCT) (mg/dL) Date Value 11/16/2024 Negative BILIRUBIN UA (POCT) (no units) Date Value 11/16/2024 Negative KETONE UA (POCT) (mg/dL) Date Value 11/16/2024 Negative SPECIFIC GRAVITY UA (POCT) (no units) Date Value 11/16/2024 1.015 HEMOGLOBIN/BLOOD UA (POCT) (no units) Date Value 11/16/2024 Negative PH UA (POCT) (no units) Date Value 11/16/2024 6.0 PROTEIN UA (POCT) (mg/dL) Date Value 11/16/2024 Trace (A) UROBILINOGEN UA (POCT) (E.U./dL) Date Value 11/16/2024 0.2 NITRITE UA (POCT) (no units) Date Value 11/16/2024 Negative LEUKOCYTES UA (POCT) (no units) Date Value 11/16/2024 Negative COLOR UA (POCT) (no units) Date Value 11/16/2024 Yellow CLARITY UA (POCT) (no units) Date Value 11/16/2024 Clear ] ALLERGIES Allergen Reactions Ambien [Zolpidem Ta* hallucinations Bactrim [Sulfametho* Rash Codeine tight band around heand & couldn't breath" Darvocet-N 100 [Pro* Intolerance severe nightmares Hytrin [Terazosin H* swelling of face Iodine Other: See Comments "face swelling" after used in a scan but uses betadine and iodine and eats shellfish without problems. Has had iodine tablets in the past without issue Neurontin [Gabapent* Mental Status Change Vicodin [Hydrocodon* Intolerance very bad nightmares MEDICATIONS: gabapentin (NEURONTIN) 100 mg capsule Take 100 mg by mouth at bedtime as needed. metoprolol succinate ER (TOPROL XL) 25 mg 24 hr tablet Take 25 mg by mouth daily at bedtime. naproxen (NAPROSYN) 250 mg tablet Take 250 mg by mouth two times a day. TAKE WITH FOOD. oxybutynin ER (DITROPAN XL) 10 mg 24 hr tablet Take 1 tablet by mouth once daily. atorvastatin (LIPITOR) 40 mg tablet Take 1 [...] Take 10 mg by mouth once daily. tolterodine ER (DETROL LA) 4 mg 24 hr capsule Take 1 capsule by mouth once daily. levETIRAcetam (KEPPRA) 500 mg tablet Take 1 tablet by mouth twice daily for 5 doses. REVIEW OF SYSTEMS GENERAL:no unintentional weight loss, malaise or fevers. NEUROLOGIC: pt is alert and oriented GASTROINTESTINAL: No nausea, vomiting, or diarrhea GENITOURINARY: see HPI MUSCULOSKELETAL: Negative for joint pain or swelling, back pain or muscle pain SKIN: Negative for lesions, rash, and itching. 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 George [facility] CTR VAD W/SUBQ PORT/PLUMBER SUPERVISOR CTR/PRPH INSJ 11-07-08 TONSILLECTOMY HX 1973 TOTAL ABDOMINAL HYSTERECT W/WO RMVL TUBE OVARY Hysterectomy, JOAQUINA FAMILY HISTORY Problem Relation Age of Onset other (Other) Mother at age 52 of disease of endocrine system Heart Father [place] Stroke Father Coronary Artery Disease Son age 47 PA Alcohol/Drug Son cirrhosis SOCIAL HISTORY Social History Tobacco Use Smoking status: Never Smokeless tobacco: Never Substance Use Topics Alcohol use: No Drug use: No PHYSICAL EXAMINATION General appearance: Well appearing, alert, in no acute distress, well-hydrated, well nourished Psych Alert and oriented to person, place and time Cardiac: no peripheral edema Pulmonary: normal respiratory effort ASSESSMENT/PLAN: 1. 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 F/u in 4-6 weeks Flaquito Brito MD documented in this encounter [facility] 10-05-2024 Note HNO ID: [id number] Author: FLAQUITO BRITO MD Service: ? Author Type: Physician Type: Progress Notes Filed: 10/05/2024 16:58 Note Text: NEW PATIENT OFFICE VISIT The patient is here for evaluation of urgency urinary incontinence. She had a sling procedure for stress urinary incontinence in the remote past. Approximately 6 weeks ago she fell and hurt her hip. She is taking pain medicine for this. Since this time she has developed urgency urinary incontinence. Her bowels are moving adequately. She denies gross hematuria. PVR is 0 LAB RESULTS Creatinine Date Value Ref Range Status 03/22/2023 0.74 0.58 - 0.96 mg/dL Final No results found for: "PSA", PSASC GLUCOSE UA (POCT) (mg/dL) Date Value 10/05/2024 Negative BILIRUBIN UA (POCT) (no units) Date Value 10/05/2024 Small (A) KETONE UA (POCT) (mg/dL) Date Value 10/05/2024 15 (A) SPECIFIC GRAVITY UA (POCT) (no units) Date Value 10/05/2024 1.025 HEMOGLOBIN/BLOOD UA (POCT) (no units) Date Value 10/05/2024 Negative PH UA (POCT) (no units) Date Value 10/05/2024 5.5 PROTEIN UA (POCT) (mg/dL) Date Value 10/05/2024 30 (A) UROBILINOGEN UA (POCT) (E.U./dL) Date Value 10/05/2024 0.2 NITRITE UA (POCT) (no units) Date Value 10/05/2024 Negative LEUKOCYTES UA (POCT) (no units) Date Value 10/05/2024 Negative COLOR UA (POCT) (no units) Date Value 10/05/2024 Yellow CLARITY UA (POCT) (no units) Date Value 10/05/2024 Clear ] ALLERGIES Allergen Reactions Ambien [Zolpidem Ta* hallucinations Bactrim [Sulfametho* Rash Codeine tight band around heand AND couldn't breath" Darvocet-N 100 [Pro* Intolerance severe nightmares Hytrin [Terazosin H* swelling of face Iodine Other: See Comments "face swelling" after used in a scan but uses betadine and iodine and eats shellfish without problems. Has had iodine tablets in the past without issue Neurontin [Gabapent* Mental Status Change Vicodin [Hydrocodon* Intolerance very bad nightmares MEDICATIONS: gabapentin (NEURONTIN) 100 mg capsule Take 100 mg by mouth at bedtime as needed. metoprolol succinate ER (TOPROL XL) 25 mg 24 hr tablet Take 25 mg by mouth daily at bedtime. naproxen (NAPROSYN) 250 mg tablet Take 250 mg by mouth two times a day. TAKE WITH FOOD. pantoprazole DR (PROTONIX) 40 mg tablet Take 1 tablet by mouth once daily. clopidogrel (PLAVIX) 75 mg tablet Take 75 mg by mouth once daily. ubidecarenone Q-10 (CO Q-10) 10 mg cap Take 10 mg by mouth once daily. oxybutynin ER (DITROPAN XL) 10 mg 24 hr tablet Take 1 tablet by mouth once daily. atorvastatin (LIPITOR) 40 mg tablet Take 1 tablet by mouth once daily. citalopram hydrobromide (CELEXA) 10 mg tablet Take 1 tablet by mouth every afternoon. levETIRAcetam (KEPPRA) 500 mg tablet Take 1 tablet by mouth twice daily for 5 doses. REVIEW OF SYSTEMS GENERAL:no unintentional weight loss, malaise or fevers. NEUROLOGIC: pt is alert and oriented GASTROINTESTINAL: No nausea, vomiting, or diarrhea GENITOURINARY: See HPI MUSCULOSKELETAL: Negative for joint pain or swelling, back pain or muscle pain SKIN: Negative for lesions, rash, and itching. 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 [facility] 10-05-2024 History of Present illness Narrative NEW PATIENT OFFICE VISIT The patient is here for evaluation of urgency urinary incontinence. She had a sling procedure for stress urinary incontinence in the remote past. Approximately 6 weeks ago she fell and hurt her hip. She is taking pain medicine for this. Since this time she has developed urgency urinary incontinence. Her bowels are moving adequately. She denies gross hematuria. PVR is 0 LAB RESULTS Creatinine Date Value Ref Range Status 03/22/2023 0.74 0.58 - 0.96 mg/dL Final No results found for: "PSA", PSASC GLUCOSE UA (POCT) (mg/dL) Date Value 10/05/2024 Negative BILIRUBIN UA (POCT) (no units) Date Value 10/05/2024 Small (A) KETONE UA (POCT) (mg/dL) Date Value 10/05/2024 15 (A) SPECIFIC GRAVITY UA (POCT) (no units) Date Value 10/05/2024 1.025 HEMOGLOBIN/BLOOD UA (POCT) (no units) Date Value 10/05/2024 Negative PH UA (POCT) (no units) Date Value 10/05/2024 5.5 PROTEIN UA (POCT) (mg/dL) Date Value 10/05/2024 30 (A) UROBILINOGEN UA (POCT) (E.U./dL) Date Value 10/05/2024 0.2 NITRITE UA (POCT) (no units) Date Value 10/05/2024 Negative LEUKOCYTES UA (POCT) (no units) Date Value 10/05/2024 Negative COLOR UA (POCT) (no units) Date Value 10/05/2024 Yellow CLARITY UA (POCT) (no units) Date Value 10/05/2024 Clear ] ALLERGIES Allergen Reactions Ambien [Zolpidem Ta* hallucinations Bactrim [Sulfametho* Rash Codeine tight band around heand & couldn't breath" Darvocet-N 100 [Pro* Intolerance severe nightmares Hytrin [Terazosin H* swelling of face Iodine Other: See Comments "face swelling" after used in a scan but uses betadine and iodine and eats shellfish without problems. Has had iodine tablets in the past without issue Neurontin [Gabapent* Mental Status Change Vicodin [Hydrocodon* Intolerance very bad nightmares MEDICATIONS: gabapentin (NEURONTIN) 100 mg capsule Take 100 mg by mouth at bedtime as needed. metoprolol succinate ER (TOPROL XL) 25 mg 24 hr tablet Take 25 mg by mouth daily at bedtime. naproxen (NAPROSYN) 250 mg tablet Take 250 mg by mouth two times a day. TAKE WITH FOOD. pantoprazole DR (PROTONIX) 40 mg tablet Take 1 tablet by mouth once daily. clopidogrel (PLAVIX) 75 mg tablet Take 75 mg by mouth once daily. ubidecarenone Q-10 (CO Q-10) 10 mg cap Take 10 mg by mouth once daily. oxybutynin ER (DITROPAN XL) 10 mg 24 hr tablet Take 1 tablet by mouth once daily. atorvastatin (LIPITOR) 40 mg tablet Take 1 tablet by mouth once daily. citalopram hydrobromide (CELEXA) 10 mg tablet Take 1 tablet by mouth every afternoon. levETIRAcetam (KEPPRA) 500 mg tablet Take 1 tablet by mouth twice daily for 5 doses. REVIEW OF SYSTEMS GENERAL:no unintentional weight loss, malaise or fevers. NEUROLOGIC: pt is alert and oriented GASTROINTESTINAL: No nausea, vomiting, or diarrhea GENITOURINARY: See HPI MUSCULOSKELETAL: Negative for joint pain or swelling, back pain or muscle pain SKIN: Negative for lesions, rash, and itching. 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 George [facility] CTR VAD W/SUBQ PORT/PLUMBER SUPERVISOR CTR/PRPH INSJ 11-07-08 TONSILLECTOMY HX 1973 TOTAL ABDOMINAL HYSTERECT W/WO RMVL TUBE OVARY Hysterectomy, JOAQUINA FAMILY HISTORY Problem Relation Age of Onset other (Other) Mother at age 52 of disease of endocrine system Heart Father [place] Stroke Father Coronary Artery Disease Son age 47 PA Alcohol/Drug Son cirrhosis SOCIAL HISTORY Social History Tobacco Use Smoking status: Never Smokeless tobacco: Never Substance Use Topics Alcohol use: No Drug use: No PHYSICAL EXAMINATION General appearance: Well appearing, alert, in no acute distress, well-hydrated, well nourished Psych Alert and oriented to person, place and time Cardiac: no peripheral edema Pulmonary: normal respiratory effort ASSESSMENT/PLAN: 1. Sensory urge incontinence - ICD9: 788.31, ICD10: N39.41 (primary diagnosis) I will trial oxybutynin XR 10 mg. Follow-up in 4 weeks 2. Urinary frequency [R35.0] - ICD9: 788.41, ICD10: R35.0 I told her that this should improve as her hip and low back pain improved as well. - BLADDER SCAN - BACTERIAL CULTURE, URINE Flaquito Brito MD documented in this encounter [facility] 10-01-2024 Telephone encounter Note Called and spoke with patient to get some more information from her regarding her "dropped bladder". She stated she had a procedure 4 years ago up at [facility] where the doctor formed a cradle and attached her bladder so that it was in the proper place. Stated she fell and when she fell it felt like her bladder popped out of place. She said she is very uncomfortable. If she has to urinate she has to go right then. Denies leaking. Having urgency and pressure. Was in the ER 3 weeks ago for multiple issues. States her bladder was out of control. They told her she had a UTI, treated it for 3 days and told her it was clear again?? She said she is having memory issues. Agnieszka Lizarraga CMA [facility] 10-01-2024 Miscellaneous Notes Called and spoke with patient to get some more information from her regarding her "dropped bladder". She stated she had a procedure 4 years ago up at [facility] where the doctor formed a cradle and attached her bladder so that it was in the proper place. Stated she fell and when she fell it felt like her bladder popped out of place. She said she is very uncomfortable. If she has to urinate she has to go right then. Denies leaking. Having urgency and pressure. Was in the ER 3 weeks ago for multiple issues. States her bladder was out of control. They told her she had a UTI, treated it for 3 days and told her it was clear again?? She said she is having memory issues. Agnieszka Lizarraga CMA documented in this encounter [facility] 08-28-2024 Note [facility] Medical Records Department [address] [place] [id number] Discharge Summary 08/28/24 1036 MR#: [id number] Acct: [id number] Name: REYES PONCE Rep #: [id number] : 1945 79 From: Adis Walker MD PCP: Dr. North Cuellar MD Status:DIS IN Location: [facility] [id number] Providers Date of Admission: 08/26/24 Date of Discharge: 08/28/24 Primary Care Physician: Dr. North Cuellar MD Reason For Visit: UTI HYPOKALEMIA HYPERGLYCEMIA FREQUENT FALLS Diagnosis Discharge Diagnosis (1) Urinary tract infection: Status: Acute Code(s): N39.0 - Urinary tract infection, site not specified Qualifiers: Hematuria presence: without hematuria Urinary tract infection type: acute cystitis Q ualified Code(s): N30.00 - Acute cystitis without hematuria (2) Hypokalemia: Status: Acute Code(s): E87.6 - Hypokalemia (3) Hyperglycemia, drug-induced: Status: Acute Code(s): R73.9 - Hyperglycemia, unspecified; T50.905A - Adverse effect of unspecified drugs, medicaments and biological substances, initial encounter (4) Multiple falls: Status: Acute Code(s): R29.6 - Repeated falls (5) Near syncope: Status: Acute Code(s): R55 - Syncope and collapse (6) Respiratory insufficiency: Status: Acute Code(s): R06.89 - Other abnormalities of breathing (7) History of CVA (cerebrovascular accident): Status: Acute Code(s): Z86.73 - Personal history of transient ischemic attack (TIA), and cerebral infarction without residual deficits (8) Back pain: Status: Acute Code(s): M54.9 - Dorsalgia, unspecified Qualifiers: Back pain laterality: unspecified Back pain location: low back pain Chronicity: acute S ciatica presence: without sciatica Qualified Code(s): M54.50 - Low back pain, unspecified Plan 79-year-old female was admitted with chief complaint of fall while walking her dog outside with slip on the ice and hitting her back of the head. She is not able to recall whether she passed out. 1. Abnormal UA, UTI ruled out: Patient states she has burning micturition for 3 days. UA positive of WBC and LE. Preliminary started on IV ceftriaxone. Prelim urine culture shows no growth but will continue antibiotics because of positive patient's symptoms. 08/28: Urine culture shows mixed contaminants, mixed gram-positive organism 1000-10,000 colonies. Antibiotic discontinued. 2. Hypokalemia of 3.1 mmol/L present on admission - Give supplemental KCl and then recheck level in the AM to ensure improvement. Hypokalemia resolved 3. DM-2; uncontrolled with Hyperglycemia of 250 mg/dL present on admission likely due to recent steroids - ADA diet. FSBS q. AC/HS plus SSI. Restart metformin as outpatient. 08/27: Glucose in BMP is 193. 08/28: Glucoses controlled 4. Fall most likely no syncope history of CVA; with residual Right-sided weakness on BASA and clopidogrel and history of subsequent fall; resulting in ICH with progressively worsening generalized weakness with ambulatory dysfunction and increasingly frequent falls with CT head, C- spine and CXR this admission negative for acute pathologic findings. 2D echo is ordered. Stress was negative for acute ischemia. 08/28: Patient advised to take Tylenol 1 g every 8 hourly [id number] for occipital headache and back pain after fall. 6. OA; with chronic debility and generalized weakness with ambulatory dysfunction PT/OT and Case Management to consult. On Tylenol. 7. Essential hypertension - Resume home regimen plus give prn IV Hydralazine for systolic blood pressure > 160 mmHg. 8. Hyperlipidemia: Patient advised to follow with PCP Dr. Cuellar to further evaluate for 10-year ASCVD risk in light of elevated cholesterol profile and and options of antihyperlipidemic treatment 08/28: Triglycerides 107, Cholesterol 228 H, LDL Cholesterol 140 H, VLDL Cholesterol 21, HDL Cholesterol 67 9. Overweight; with BMI of 28.6 this admission plus CATHERINE - Weight loss will be recommended. Continue nocturnal CPAP. Check TSH. This complicates her case and may hamper recovery. TSH low, free T4 normal free T31.4, possible subclinical hyperthyroidism or euthyroid sick syndrome. Repeat thyroid profile in about 6 months Depression with anxiety; on citalopram - Citalopram to be maintained as before. GERD; on pantoprazole - Resume pantoprazole as previous. DVT prophylaxis - Heparin 5,000 U sq. BID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 following: Independent: Ambulation;Bathe/Shower;Dress;Meals/Meal Prep;Going to the bathroom;Medication Management Dependent: Transportation to appointments/community Current Services/Equipment Current Post-Acute Service(s): Skilled Home Care Discharge Planning Patient Goal(s): Better mobility, Be able to go home [place] of Choice Explained: Are you interested in [...] Plan: Pt lives with spouse. Active with [facility] health. Pt has cane at bedside. Pt has PCP and pharmacy is [facility]. SIGNATURE: Jennyfer Campbell RN PATIENT NAME: Reyes Ponce DATE: March 19, 2023 TIME: 11:59 AM CONTACT #: [phone] NoteHNO ID: [id number] Author: Vel Fulton Service: General Surgery Author Type: ? Type: Progress Notes Filed: 03/19/2023 9:35 AM Note Text: Attestation signed by Shannon Escobar MD at 03/19/2023 10:09 AM TEACHING PROVIDER (Physician/PA/SOIL CONSERVATION TECHNICIAN) NOTE OF PERSONAL INVOLVEMENT IN CARE: I [...] (Src) 97.5 (Axillary) Resp 18 Ht 5' 2" (1.58m) Wt 154 lb 15.7 oz (70.3kg) SpO2 91% BMI 28.34 kg/(m2). O2 Therapy: Nasal Cannula, Liters: 2 Temp (24hrs), Av.3 ?C (97.4 ?F), Min:35.9 ?C (96.6 ?F), Max:36.7 ?C (98.1 ?F) Date 03/18/23699 - 03/19/2365803/19/23699 - 03/20/23 0659 Shift 6714-2561 6682-6986 7591-7731 24 Hour Total 6988-2767 8336-7278 5289-3222 24 Hour Total INTAKE IV 448 448 [...] 0.78 0.58 - 0.96 (more content not included)...[facility]06-08-[address] Mcbride [facility] February 27, 2023 4:53pm Note Date/Time February 27, 2023 3:18p [facility] Medical Records Department [address] [place] [address] Emergency Department Summary 02/27/23 MR#: [id number] Acct: [id number] Name: REYES PONCE Rep #:[id number] : 1945 77 From: Aydin Mcbride MD PCP: Dr. North Cuellar MD Status:REG E R Location: ED HPI History of Present Illness Chief Complaint: Nosebleed Informant: patient Narrative Narrative: Patient presents for a nosebleed that started spontaneously about 45 minutes agofrom the right side, she states however it has also been coming down the back ofher throat out of her mouth, and out of the left side but mainly out the right. Never had this before. She takes baby aspirin every day and she took a couple doses of Anacin in the last 24 hours because she had a sudden onset headache that started yesterday when she was in her walk-in closet somewhere around 4:00 PM, the sudden onset headache was associated with feeling like she was going to pass out, a transient visual field deficit where she states it felt like "someone was pulling a curtain down over my eyes", and vertigo. She states she has also been having some trouble speaking, and thinks that is more now/today. She has been having the vertigo, headache, and feeling off balance whenever she tries to walk ever since then. She is evaluated by myself here at around 1445. Patient states that she has vertigo almost every day ever since she fell and hither head 2 years ago or so, but the headache, near syncope, speaking trouble, and visual disturbance are all new, although the occurred mostly yesterday. Takes no anticoagulants. [facility] Medical History Anxiety Breast cancer Essential hypertension Fatty liver GERD (gastroesophageal reflux disease) CATHERINE (obstructive sleep apnea) Thoracic aortic aneurysm without rupture Home Medications cholecalciferol (vitamin D3) 125 mcg (5,000 unit) tablet 125 mcg PO DAILY 01/29/22 [History Last Taken 02/27/23] citalopram 20 mg tablet 20 mg PO DAILY 01/29/22 [History Last Taken 02/27/23] aspirin 81 mg tablet,delayed release (Adult Low Dose Aspirin) 81 mg PO DAILY 01/30/22 [History Last Taken 02/27/23] pantoprazole 40 mg tablet,delayed release 40 mg PO DAILY 01/30/22 [History Last Taken 02/26/23] Allergy/AdvReac Type Severity Reaction Status Date / Time terazosin [From Hytrin] Allergy Severe Face Verified 02/04/23 19:22 swelling iodine Allergy "face Verified 02/04/23 19:22 swelling after scan" acetaminophen AdvReac Severe Nightmares Verified 02/04/23 19:22 [From Darvocet-N 100] propoxyphene AdvReac Severe Nightmares Verified 02/04/23 19:22 [From Darvocet-N 100] codeine AdvReac Unknown "tight Verified 02/04/23 19:22 band around head and SOB gabapentin [From Neurontin] AdvReac Unknown Mental Verified 02/04/23 19:22 status change hydrocodone [From Vicodin] AdvReac Unknown Nightmares Verified 02/04/23 19:22 zolpidem [From Ambien] AdvReac Unknown Hallucinati Verified 02/04/23 19:22 ons Family History Father Myocardial infarction CVA (cerebral vascular accident) Surgical History History of abdominal hysterectomy History of appendectomy History of laparoscopic cholecystectomy History of partial mastectomy of right breast Social History Smoking Status: Never smoker alcohol intake: never substance use type: does not use ROS ROS ED Constitutional Constitutional ED: Denies chills or fever(s) Eyes Eyes: Reports as per HPI and change in vision; Denies diplopia ENT ENT ED: Reports ear pain bilateral, epistaxis and tinnitus; Denies sore throat Cardiovascular Cardiovascular: Denies chest pain or palpitations Respiratory/Chest Respiratory/Chest: Denies cough or dyspnea Gastrointestinal Gastrointestinal: Denies abdominal pain, diarrhea, nausea or vomiting Genitourinary Genitourinary ED: Denies dysuria or hematuria Musculoskeletal Musculoskeletal: Denies back pain or neck pain Integumentary Denies abscess or rash Neurologic Neurologic: Reports abnormal gait, headache(s), lack of coordination and vertigo; Denies paresthesias, syncope or weakness Psychiatric Psychiatric: Denies anxiety or suicidal thoughts EXAM Physical Exam Const Vital Signs: 02/27/23 14:23 02/27/23 14:47 02/27/23 15:17 Temperature 96.9 F L Temperature Source Temporal Pulse Rate 103 H 84 78 Respiratory Rate 18 16 17 Blood Pressure 134/104 H 101/77 101/77 Blood Pressure Mean 114 85 85 Pulse Ox 97 97 95 Oxygen Delivery Method Room Air Room Air Room Air 02/27/23 15:30 02/27/23 16:00 Temperature Temperature Source Pulse Rate 88 89 Respiratory Rate 14 12 Blood Pressure 150/101 H 160/106 H Blood Pressure Mean 117 124 Pulse Ox 95 94 Oxygen Delivery Method Room Air Positive well nourished and well developed General Appearance ED: well developed and NAD HEENT Reports moist mucous membranes HEENT Narrative: Right temporal artery nontender, no palpable cords or abnormality. normocephalic and atraumatic Nose: other Other Details: Right-sided epistaxis active, mild-moderate, blood inposterior oropharynx, patient occasionally spits up some blood and occasionally pulls a long clot out of her nose. Eyes PERRL and EOMs intact bilaterally Neck full ROM, no lymphadenopathy and supple Chest Wall inspection of chest normal and palpation of chest normal Resp normal respiratory effort and clear to auscultation bilaterally Cardio regular rate, regular rhythm and no murmurs GI non-tender and non-distended Auscultation: normoactive bowel sounds Palpation: soft Back/Spine no CVA tenderness General Back: other FROM Extremity normal to inspection General Extremety ED: Negative for edema, pulses abnormal or tenderness General Extremity: Negative for edema or pulses abnormal Neuro oriented x3, CN's II-XII intact bilaterally and no sensory deficits noted Sensorium / Orientation: awake and alert Motor Exam: strength 5/5 throughout Psych Mood & Affect: anxious Skin no rashes or lesions noted and no wounds NIHSS NIHSS Initial: 1a Level of Consciousness: 0 1b LOC Questions (Score 2 if aphasic/stupor): 0 1c LOC Commands (Only score 1st attempt): 0 2 Best Gaze (If aphasic, use reflexive mvmts.): 0 3 Visual: 0 4 Facial Palsy: 0 5 Motor Arm Right (UN = amputation/fusion): 0 5 Motor Arm Left: 0 6 Motor Leg Right: 0 6 Motor Leg Left: 0 7 Limb ataxia (Only + if out of proportion): 0 8 Sensory (Aphasia/stupor=0 or 1, coma=2): 0 9 Best Language: 0 10 Dysarthria (mute, coma=2, intubated=UN): 0 11 Extinction and Inattention (only scored if +): 0 Total Score: 0 MDM MDM MDM Narrative Medical decision making narrative: This patient presented for nosebleed and did not tell anyone else about her other symptoms until my encounter/evaluation. I am concerned about the symptomsshe had at the onset of all of this yesterday, with sudden onset headache, near syncope, visual field disturbance, and vertigo, with her age certainly this could be central/vascular in etiology. However then she starts talking about how her vertigo has been chronic and has it almost daily, suggesting a peripheral etiology. Basically we were trying to evaluate and control her active epistaxis, the patient was very anxious, which I think may be the etiology of her speech issues, but difficult for the patient and her to tell, agreeing that she has anxiety. After holding pressure on her nose and still spitting blood out of her mouth, I was about to pack her nose, when she blew theblood and clots out, suddenly it seemed like there was no more bleeding, I was able to see a small punctate area that appeared to be the source at the septum on the right without signs of perforation, I obtained a silver nitrate stick andwas able to cauterize this with no complication or recurrent bleeding. At this point I was able to finally get the patient to tell me the time of the onset yesterday which is about 23 hours prior to the present time so I called a strokealert and had the advanced imaging obtained, it is noted that she has a reactionto iodine but it does not sound anaphylactic, so we pretreated her with [place] Solu-Medrol but obtained the scan including CT angiography emergently. She is not a tPA candidate due to timing. CT and CTA negative for any acute LVO or bleed. The patient had no recurrent epistaxis. After discussing with stroke neurology, he is in agreement that the patient should be admitted for observation on telemetry given the near syncope and unusual symptoms. I did obtain an ESR, it is negative ruling out acute giant cell arteritis as well. Also of note, patient states she was diagnosed with fatty liver disease and her doctor was concerned that she is headed toward cirrhosis although she has not been diagnosed with that; her coags here are normal, suggesting that this is unrelated to her nosebleed today. History & Record Review Discussion w/independent historian: Patient and Family () Additional record(s) reviewed:: Prior labs Lab Data Attestation: I reviewed the patient's lab results. Labs: Laboratory Results - last 24 hr 02/27/23 02/27/23 02/27/23 14:53 15:00 15:00 WBC 6.5 RBC 4.32 Hgb 13.2 Hct 41.0 MCV 94.9 MCH 30.6 MCHC 32.2 RDW Std Deviation 48.3 H RDW Coeff of Jeffrey 13.9 Plt Count 201 MPV 10.2 Immature Gran % (Auto) 0.300 Neut % (Auto) 57.8 Lymph % (Auto) 30.3 [place] % (Auto) 9.9 Eos % (Auto) 1.1 Baso % (Auto) 0.6 Absolute Neuts (auto) 3.7 Absolute Lymphs (auto) 1.96 Nucleated RBC % 0 ESR 15 PT 13.2 INR 1.0 APTT 23.6 L Sodium Potassium Chloride Carbon Dioxide Anion Gap BUN Creatinine Estim Creat Clear Calc Est GFR (MDRD) Af Amer Est GFR (MDRD) Non-Af BUN/Creatinine Ratio Glucose Calcium Troponin I High Sens POC Glucose 125 H 02/27/23 15:00 WBC RBC Hgb Hct MCV MCH MCHC RDW Std Deviation RDW Coeff of [place] Plt Count MPV Immature Gran % (Auto) Neut % (Auto) Lymph % (Auto) [place] % (Auto) Eos % (Auto) Baso % (Auto) Absolute Neuts (auto) Absolute Lymphs (auto) Nucleated RBC % ESR PT INR APTT Sodium 138 Potassium 3.7 Chloride 102 Carbon Dioxide 30.0 Anion Gap 6 BUN 21 H Creatinine 0.99 Estim Creat Clear Calc 37.64 Est GFR (MDRD) Af Amer 70 Est GFR (MDRD) Non-Af 58 L BUN/Creatinine Ratio 21.3 H Glucose 129 H Calcium 9.3 Troponin I High Sens 11 POC Glucose Radiography Diagnostic Testing: Clinical Impression(s) from Imaging Studies Brain CT 02/27/23 14:47 IMPRESSION: Chronic involutional changes of the brain. N.B. : The above Results were Read Back by Alexis Lee MD to Aydin Mcbride and understanding confirmed on 02/27/2023 15:24:20 (ET). Electronically Signed: Alexis Lee MD at 15:25 EDT , ADDENDUM: 02/27/23 1532 IMPRESSION: Chronic involutional changes of the brain. N.B. : The above Results were Read Back by Alexis Lee MD to Aydin Mcbride and understanding confirmed on 02/27/2023 15:24:20 (ET). Electronically Signed: Alexis Lee MD at 15:25 EDT , Head/Neck CTA 02/27/23 15:12 IMPRESSION: Atherosclerotic plaque formation at the origin of the right and left internal carotid arteries causing less than 50% stenosis. N.B. : The above Results were Read Back by Alexis Lee MD to Aydin Mcbride and understanding confirmed on 02/27/2023 15:30:59 (ET). Electronically Signed: Alexis Lee MD at 15:32 EDT , ADDENDUM: 02/27/23 1539 IMPRESSION: Atherosclerotic plaque formation at the origin of the right and left internal carotid arteries causing less than 50% stenosis. N.B. : The above Results were Read Back by Alexis Lee MD to Aydin Mcbride and understanding confirmed on 02/27/2023 15:30:59 (ET). Electronically Signed: Alexis Lee MD at 15:32 EDT , My interpretation of the CT agrees with that of the radiologist. Rhythm Strip Rhythm Strip: Sinus Rhythm Rate: 99 Ectopy: None EKG Initial EKG: Attestation: I personally reviewed and interpreted this EKG as follows: Interpretation: Sinus Rhythm and No Acute Injury Pattern Management Discussion w/another healthcare provider: Hospitalist, Tool [employer] (stroke neurology, [facility] Dr. Fulton) and Radiologist Stroke Documentation Questions Stroke Team Activated: Yes Was Patient considered for Endovascular Intervention?: No-CTA negative, determined not to be an endovascular candidate IV Thrombolytic Administered: No (out of time window) Procedures Other Procedures Procedure(s): Epistaxis care, see above for details Critical Care Time Critical Care Time: Yes Critical care time (excluding procedures): 30-74 minutes (45 min, not including procedure time), Including time spent:, Discussing w/Patient &/or Family/Wringer Machine Operator, Discussing w/Consultants, Arranging Admission or Transfer and Performing Direct Patient Care at Bedside Discharge Plan Dx/Rx/DC Orders Clinical Impression: Vertigo, Near syncope, Transient vision disturbance, bilateral, Acute anterior epistaxis Disposition Disposition: Acute Care Hospital [facility] What to do if you have Problems For any increased pain, shortness of breath, bleeding, nausea or vomiting, chestpain, or any unexpected problems, contact your Primary Care Provider. Call [facility] ([phone]) or report to the closest Emergency Room. Call 911 if necessary. 02/27/23 1653 <Electronically signed by Aydin Mcbride MD> Cosigner Signature (if applicable): CC: Dr. North Cuellar MD ~ Signed [facility] Work Phone: 1(139) 719-945609-09-2021 NoteHNO ID: [id number] Author: Rahel Espinoza Service: ? Author Type: ? Type: Progress Notes Filed: 05/31/2021 1:38 PM Note Text: POPULATION HEALTH NAVIGATION OUTREACH Action/FYI Patient seeing provider outside [facility]. Contact made with patient or family member? yes Pt identified by name and :yes Outreach Outcome/Action Scheduled outside [facility]. Reason for Outreach Care gap - colonoscopy Payer: Payor: MMO MEDICARE / Plan: [employer] HMO / Product Type: HMO / Care [...] future healthcare decisions with a power of maintenance planner, living will, or advance directives? Referrals: Message Sent to Practice: Navigation Signature: Rahel Espinoza May 31, 2021 1:36 [facility]09-09-2021 NotePatient Outreach (NETNAV) RHODAREYES ([id number]) 1945 F Date Time Provider Department 05/31/21 ABIGAIL ESPINOZAOPAL NORBERTO During your visit today, we recorded the following information about you: Rahel Alexis 05/31/2021 1:38 PM Signed POPULATION HEALTH NAVIGATION OUTREACH Action/FYI Patient seeing provider outside [facility]. Contact made with patient or family member? yes Pt identified by name and :yes Outreach Outcome/Action Scheduled outside [facility]. Reason for Outreach Care gap - colonoscopy Payer: Payor: [employer] MEDICARE / Plan: [employer] HMO / Product Type: HMO / Care [...] future healthcare decisions with a power of maintenance planner, living will, or advance directives? Referrals: Message Sent to Practice: Navigation Signature: Rahel Espinoza May 31, 2021 1:36 PM Allergies As of Date: 05/31/2021 Noted Allergy Reaction AMBIEN (ZOLPIDEM TARTRATE) 09/24/2006 Comments: hallucinations BACTRIM (SULFAMETHOXAZOLE-TRIMETH*12/01/2019 2 - Rash CODEINE 04/03/2006 Comments: "tight band around heand AND couldn't breath" DARVOCET-N 100 (PROPOXYPHENE N-AC*05/18/2008 5 - Intolerance Comments: severe nightmares HYTRIN (TERAZOSIN HCL) 04/03/2006 Comments: swelling of face IODINE 04/03/2006 14 - Other: See Comments Comments: "face swelling" after used in a scan but uses betadine and iodine and eats shellfish without problems. Has had iodine tablets in the past without issue NEURONTIN (GABAPENTIN) 03/08/2014 1 - Mental Status Change VICODIN (HYDROCODONE-ACETAMINOPHE*05/18/2008 5 - Intolerance Comments: very bad nightmares [...] 09/07/2019 Encounter Status:Closed by RAHEL ESPINOZA on 05/31/21[facility] 11-13-2020 NotePatient Outreach (COVAMN) REYES PONCE ([id number]) 1945 F Date Time Provider Department 11/13/20 MIGUELINASYOLY During your visit today, we recorded the following information about you: Allergies As of Date: 11/13/2020 Noted Allergy Reaction AMBIEN (ZOLPIDEM TARTRATE) 09/24/2006 Comments: hallucinations BACTRIM (SULFAMETHOXAZOLE-TRIMETH*12/01/2019 2 - Rash CODEINE 04/03/2006 Comments: "tight band around heand AND couldn't breath" DARVOCET-N 100 (PROPOXYPHENE N-AC*05/18/2008 5 - Intolerance Comments: severe nightmares HYTRIN (TERAZOSIN HCL) 04/03/2006 Comments: swelling of face IODINE 04/03/2006 14 - Other: See Comments Comments: "face swelling" after used in a scan but uses betadine and iodine and eats shellfish without problems. Has had iodine tablets in the past without issue NEURONTIN (GABAPENTIN) 03/08/2014 1 - Mental Status Change VICODIN (HYDROCODONE-ACETAMINOPHE*05/18/2008 5 - Intolerance Comments: very bad nightmares Date Reviewed: 12/01/2019 Reviewed by: Jocelynn Lloyd LPN - Fully Assessed Order(s):SARS-COVID VACCINE 1ST DOSE APPT [[id number]] Order #: [id number] FUTURE Prescriptions as of 11/13/2020 Sig: DIPHENHYDRAMINE [...] Essential hypertension [I10] 09/07/2019 Encounter Status:Closed by dooub, PRODUSER on 11/16/20[facility] 10-21-2018 History of Past illness Narrative* Problem Noted Date Resolved Date CVA (cerebrovascular accident) 10/21/2018 0 10/21/2018 Overview: Old cva noted on ct scan 10/10. No hx of previous symptomatology Hypokalemia 02/22/2014 09/04/2017 Abnormal mammogram, unspecified 01/26/2010 09/04/2017 KELOID, CHELOID SCAR 02/16/2009 09/04/2017 Embolism and thrombosis of unspecified site 10/2301/25/2014 documented as of this encounter (statuses as of 03/20/2023) [facility] History of Past illness Narrative* Problem Noted Date Diagnosed Date Resolved Date CVA (cerebrovascular accident) 10/21/2018 10/21/2018 Overview: Old cva noted on ct scan 10/10. No hx of previous symptomatology Hypokalemia 02/22/2014 09/04/2017 Abnormal mammogram, unspecified 01/26/2010 09/04/2017 KELOID, CHELOID SCAR 02/16/2009 017 Embolism and thrombosis of unspecified site 11/04/2008 01/25/2014 documented as of this encounter (statuses as of 04/08/2023) [facility] History of Past illness Narrative* Problem Noted Date Diagnosed Date Resolved Date CVA (cerebrovascular accident) 10/21/2018 10/21/2018 Overview: Old cva noted on ct scan 10/10. No hx of previous symptomatology Hypokalemia 02/22/2014 09/04/2017 Abnormal mammogram, unspecified 01/26/2010 09/04/2017 KELOID, CHELOID SCAR 02/16/2009 017 Embolism and thrombosis of unspecified site 11/04/2008 01/25/2014 documented as of this encounter (statuses as of 04/09/2023) [facility] noteNo assessment information availableWooUpper [facility] Work Phone: Evaluation note* Diagnosis Onset Date Resolution Status Chest pain acute [facility] Work Phone: Evaluation note* Diagnosis Onset Date Resolution Status Essential hypertension acute Thoracic aortic aneurysm without rupture acute [facility] Work Phone: Evaluation note* Diagnosis Onset Date Resolution Status Essential hypertension acute Thoracic aortic aneurysm without rupture acute Acute anterior epistaxis acu te Near syncope acute Transient vision disturbance, bilateral acute Vertigo acute [facility] Work Phone: Evaluation note* Diagnosis Onset Date Resolution Status Essential hypertension acute Thoracic aortic aneurysm without rupture acute Acute anterior epistaxis res olved Near syncope resolved Transient vision disturbance, bilateral resolved Vertigo resolved [facility] Work Phone: Evaluation note* Diagnosis Subdural bleeding (HCC)- Primary Subdural hemorrhage [facility] this [facility] Diagnosis SDH (subdural hematoma) (HCC)- Primary Subdural hemorrhage [facility] this [facility]* Diagnosis Subdural bleeding (HCC) Subdural hemorrhage [facility] Diagnosis Onset Date Resolution Status Acute anterior epistaxis res olved Near syncope resolved Transient vision disturbance, bilateral resolved Vertigo resolved [facility] Work Phone: Evaluation note* Diagnosis Sensory urge incontinence- Primary Urge incontinence Urinary frequency [R35.0] Urinary frequency documented in this encounter [facility]* Diagnosis 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 You do have a some fluid in your anterior mediastinum as well as a dilation of your aorta (known as an aortic aneurysm). These are stable on your imaging but please follow-up with your family doctor with this for close further monitoring. You may take aspirin as needed for pain. Please use [id number] Lidoderm patches for the muscle pain if you find it helpful. You can use 4% extra strength Lidoderm patches (Salonpas brand)[facility] Work Phone: Hospital Discharge instructionsAdditional Instructions Change the bandage once daily with bacitracin, a nonstick bandage, and gauze. This may take several weeks to heal. Please be seen by your primary care doctor if you develop signs of infection like redness, swelling or, pus or fever.[facility] Work Phone: Reason for referral (narrative)No reason for referral information availableWLouis Stokes [facility] Work Phone: Summary Purpose Family History Relationship Condition Age at Onset Recorded Date/T rayna Unknown Family History?- Unknown April 9:46am Family History?- Unknown April 9:46am Relationship Condition Age at Onset Recorded Date/T rayna father Myocardial infarction Unknown Cerebrovascular accident (CVA) Unknown Advance Directives Advance Directive Response Recorded Date/ Time Living Will Yes November 27, 2019 8:06pm Power of Trip Follower Yes November 26 8:06pm Advance Directive Response Recorded Date/ Time Living Will No January 16, 2022 2:45pm Power of Trip Follower No January 16 2:45pm Advance Directive Response Recorded Date/ Time Living Will No January 16, 2022 1:45pm Power of Trip Follower No January 16 1:45pm Advance Directive Response Recorded Date/ Time Name of Medical Power of Trip Follower SUE SINCLA IR February 04, 2023 7:31pm Living Will Yes February 04, 2023 7 :31pm Power of Trip Follower Yes February 04, 2023 7:31pm Advance Directive Response Recorded Date/ Time Name of Medical Power of Trip Follower SUE SINCLA IR February 04, 2023 7:31pm Name of Medical Power of Trip Follower recalled February 27, 2023 2:52pm Living Will Yes February 27, 2023 2 :52pm Power of Trip Follower Yes February 27, 2023 2:52pm Advance Directive Response Recorded Date/ Time Name of Medical Power of Trip Follower SUE SINCLA IR February 04, 2023 7:31pm Name of Medical Power of Trip Follower Sue Sincla ir February 27, 2023 6:27pm Living Will No March 03, 2023 3:58am Power of Trip Follower No March 03 3:58am Advance Directive Response Recorded Date/ Time Name of Medical Power of Trip Follower SUE SINCLA IR February 04, 2023 7:31pm Name of Medical Power of Trip Follower Sue Sincla ir February 27, 2023 6:27pm Living Will No March 18, 2023 5:17pm Power of Trip Follower No March 18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
== END 2025-04-14 16:56 | disposition home or self-care (01) ==
PROVIDERS: Emergency Provider Emergency Medicine; PCP Family Medicine Geriatric Medicine; Visit Provider Emergency Medicine
DX: S51.811A Laceration without foreign body of right forearm, initial encounter (principal); W54.1XXA Struck by dog, initial encounter; I10 Essential (primary) hypertension; K21.9 Gastro-esophageal reflux disease without esophagitis; G47.33 Obstructive sleep apnea (adult) (pediatric); F41.9 Anxiety disorder, unspecified; Z79.82 Long term (current) use of aspirin; Z79.02 Long term (current) use of 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/antiplatelets; Z79.899 Other long term (current) drug therapy
CPT/HCPCS: 99282

== ENCOUNTER → 2025-04-18 | Outpatient (CLI) | payer MEDICARE, SELFPAY | END | disposition home or self-care (01) | LOC: POLAB3 16:13 | PROVIDERS: PCP Family Medicine Geriatric Medicine; Visit Provider Family Medicine Geriatric Medicine | DX: S51.811A Laceration without foreign body of right forearm, initial encounter (principal); X58.XXXA Exposure to other specified factors, initial encounter; Z22.39 Carrier of other specified bacterial diseases | CPT/HCPCS: 87070; 87075; 87101; 87205 ==

== ENCOUNTER 2025-04-20 10:09 | Outpatient (RCR) | payer MEDICARE, SELFPAY ==
[2025-04-20 10:24] VITALS: BP 142/94; PULSE 70; RESP 18; TEMP 36.4
--- NOTE | 2025-04-20 11:52 | PCM.WC.HP ---
History of Present Illness Date of Service: 04/20/25 Chief Complaint: Right forearm avulsion laceration History of Wound: 80-year-old white female that was looking at the window on the back of her couch and her Doberman dog came up and jumped up on the couch and scratched her arm by accident. He caused her to have avulsion laceration took off the willful top layer. Very painful for her skin was pushed back and basically gone she also has history of a stroke so therefore is on Plavix she is also has hypertension and thyroid issues. She lives at home with her and gets around with a cane. Her will be the one they will do the dressing changes She did see her primary care doctor he put her on 2 antibiotics and gave her an injection of Rocephin she is currently taking doxycycline at this point. [facility] Medical History (Reviewed 04/20/25 @ 11:54 by Naila Mckoy REFERENCE AND INSTRUCTION LIBRARIAN, REFERENCE AND INSTRUCTION LIBRARIAN-C) Back pain Thoracic aortic aneurysm without rupture Breast cancer CATHERINE (obstructive sleep apnea) Essential hypertension GERD (gastroesophageal reflux disease) Anxiety Fatty liver Home Medications ?Medication ?Instructions ?Recorded ?Last Taken ?Type pantoprazole 40 mg tablet,delayed 40 mg PO DAILY relfux 01/30/22 02/26/23 History release clopidogrel 75 mg tablet 75 mg PO DAILY anti platelet #30 03/01/23 Unknown Rx tabs citalopram 10 mg tablet 10 mg PO DAILY mental health 08/26/24 Unknown History gabapentin 100 mg capsule 100 mg PO DAILY nerve pain 08/26/24 Unknown History naproxen 250 mg tablet 250 mg PO BID pain 08/26/24 Unknown History acetaminophen 500 mg tablet 1,000 mg (2 x 500 mg) PO Q8H PRN 08/28/24 Unknown Rx PRN Headache/Fever (T>102.5) #0 tabs prednisone 10 mg tablet See Taper PO BID inflammation 2 08/28/24 08/26/24 Rx days #0 tabs albuterol sulfate 90 mcg/actuation 2 puff inhalation Q4H PRN PRN 04/20/25 Unknown History aerosol inhaler shortness of breath or wheezing cephalexin 500 mg capsule 500 mg PO BID 04/20/25 Unknown History doxycycline hyclate 100 mg tablet 100 mg PO BID 04/20/25 Unknown History metoprolol succinate 25 mg 25 mg PO QHS 04/20/25 Unknown History tablet,extended release 24 hr Allergy/AdvReac Type Severity Reaction Status Date / Time terazosin (From Hytrin) Allergy Severe Face Verified 04/14/25 15:58 swelling acetaminophen (From AdvReac Severe Nightmares Verified 04/14/25 15:58 Darvocet-N 100) propoxyphene (From AdvReac Severe Nightmares Verified 04/14/25 15:58 Darvocet-N 100) codeine AdvReac Unknown tight Verified 04/14/25 15:58 band around head and SOB gabapentin (From Neurontin) AdvReac Unknown Mental Verified 04/14/25 15:58 status change hydrocodone (From Vicodin) AdvReac Unknown Nightmares Verified 04/14/25 15:58 zolpidem (From Ambien) AdvReac Unknown Hallucinati Verified 04/14/25 15:58 ons Family History Father Myocardial infarction CVA (cerebral vascular accident) Surgical History History of abdominal hysterectomy History of laparoscopic cholecystectomy History of appendectomy History of partial mastectomy of right breast Social History Smoking Status: Never smoker alcohol intake: never substance use type: does not use ROS Constitutional Constitutional: Reports systems reviewed and no addt'l complaints, except as documented Eyes Eyes: Reports systems reviewed and no addt'l complaints, except as documented ENT HEENT: Reports systems reviewed and no addt'l complaints, except as documented Cardiovascular Cardiovascular: Reports systems reviewed and no addt'l complaints, except as documented Respiratory/Chest Respiratory/Chest: Reports systems reviewed and no addt'l complaints, except as documented Gastrointestinal Gastrointestinal: Reports systems reviewed and no addt'l complaints, except as documented Genitourinary Genitourinary: Reports systems reviewed and no addt'l complaints, except as documented Musculoskeletal Musculoskeletal: Reports systems reviewed and no addt'l complaints, except as documented Integumentary Integumentary: Reports wounds and other Details: Right forearm avulsion laceration bleeding is under control Neurologic Neurologic: Reports systems reviewed and no addt'l complaints, except as documented Psychiatric Psychiatric: Reports systems reviewed and no addt'l complaints, except as documented Endocrine Endocrinology: Reports systems reviewed and no addt'l complaints, except as documented Hematologic/Lymphatic Hematologic/Lymphatic: Reports systems reviewed and no addt'l complaints, except as documented Allergic/Immunologic Allergic/Immunologic: Reports systems reviewed and no addt'l complaints, except as documented Vital Signs Vital Signs Vital Signs: 04/20/25 10:24 Temperature 97.5 F L Temperature Source Temporal Pulse Rate 70 Respiratory Rate 18 Blood Pressure 142/94 H Blood Pressure Mean 110 Blood Pressure Source Monitor Blood Pressure Position Sitting Blood Pressure Location Left Arm Oxygen Delivery Method Room Air Physical Exam Const oriented x3 General Appearance: cooperative Exam Limitations: no limitations HEENT normocephalic Head and Scalp: normal to inspection Face and Sinus: normal facial exam Nose: external nose normal External Ear: external ears normal Eyes PERRL General Eye: normal appearance of both eyes Neck full ROM General: normal visual inspection Resp normal respiratory effort Effort and Inspection: able to speak in complete sentences Auscultation: clear to auscultation bilaterally Cardio regular rate and regular rhythm Palpation: normal PMI Rate: regular rate Rhythm: regular rhythm GI Palpation: soft Extremity normal to inspection General Extremity: normal exam except as noted and other findings Other Details: Laceration to the right forearm Skin no rashes or lesions noted Wounds: wounds noted Wound Narrative: Avulsion laceration to right forearm clean no sign of infection or redness. Very tender to touch Neuro oriented x3 Psych Appearance: grossly normal Speech: normal speech Thought Content: normal thought content Judgement: judgement good Debridement Note Debridement Note Post-Debridement Measurements and Additional Note: Post-Debridement Measurements/Treatment [facility] Nurse 1 - General Ulcer Assessment Start: 04/20/25 10:24 Freq: Status: Active Protocol: WC.LOWEXT Activity Type Activity Date Activity User E-sign Co-sign Detail Recorded Client Recorded Date Recorded By Document 04/20/25 10:24 EILEEN [id number] 04/20/25 10:29 DS 04/20/25 10:24 - Today's Visit Information Type of service Initial Visit Arrival Mode Ambulatory,Cane Accompanied by SUE - Patient Identification Verified (Name & Yes ) Patient Requires Transmission-Based No Precautions Safety Precautions Fall Prevention Vital Signs Temperature (97.8 F-99.1 F) 97.5 F L Temperature Source Temporal Pulse Rate (60-100) 70 Pulse Location Monitor Respiratory Rate (12-18) 18 Respiratory rate source Observation Oxygen Delivery Method Room Air Blood Pressure (90/60-120/80) 142/94 H Blood Pressure Mean 110 Source Monitor Position Sitting Blood Pressure Location Left Arm Pain Scale: 0-10 Numeric Is Patient Pain Free? No RIGHT ARM -Description Sharp,Throbbing -Intensity 4 -Duration (hours) Chronic -Pain Behavior No Change in Behavior -Pain Aggravating Factors ADL's -Alleviating Factors/Interventions Will continue to monitor Communication Assessment Preferred language Icelandic Person Investigator Required No Able to Read Yes Able to Write Yes Communication Tools None Right Hearing Abillity Normal Left Hearing Abillity Normal Visual Assistive Devices Glasses Teaching Assessment Preferences Verbal Barriers to Learning None Readiness To Learn Good Willingness to Engage in Self Management High Activies Readiness to Engage in Self Management High Activities Anxiety Level Calm Cooperation Cooperative Perception Coherent Interest in Health Problem Asks Questions Education Importance Acknowledges Need Does Patient Smoke tobacco or other No substances Is Patient Diabetic No Functional Assessment Recent Decline in Ability to Perform Denies Any Declines Culture/Jew/Senior Clinical Data Manager Cultural/Jew Needs that may affect No Treatment Plan Teaching: Wound Center *Welcome to the Wound Center -Person Taught Patient, Significant Other -Teaching Method Discussion -Response to teaching Verbalize Understanding WC - Nurse 1 - General Ulcer Measurement Start: 04/20/25 10:24 Freq: Status: Active Protocol: Activity Type Activity Date Activity User E-sign Co-sign Detail Recorded Client Recorded Date Recorded By Document 04/20/25 10:38 DS [id number] 04/20/25 10:52 DS 04/20/25 10:38 Wound Center Nurse 1 #1 RIGHT FA -Current Size (cm) - Length 2.3 -Current Size (cm) - Width 3.6 -Current Size (cm) - Depth 0.1 -Total Square Cm 8.28 -Date of Last Picture (Recall this 04/20/25 field) -Photo Taken Yes -Tunneling No -Undermining/Tunneling No -Circular Undermining No -Exudate Amt Large -Exudate Type Sanguineous -Wound Margin Distinct, Outline Attached -Granulation Amt Medium (34-66%) -Granulation Quality [place] -Necrosis Amt Small (1-33%) -Necrotic Tissue Type Eschar -Texture (Kelley-wound Skin Appearance) Assessed -Moisture (Kelley-wound Skin Appearance) Assessed -Color (Kelley-wound Skin Appearance) Assessed -Temperature (Kelley-wound Skin No Abnormality Appearance) (Pt Warm) -Tenderness on Palpation (Kelley-wound No Skin Appearance) -Ulcer Cleansing Soap and Water -Foul Odor after Cleansing No -Anesthetic Used 5% Lidocaine Gel - Nurse 2 - General Ulcer CM Notes Start: 04/20/25 10:24 Freq: Status: Active Protocol: Activity Type Activity Date Activity User E-sign Co-sign Detail Recorded Client Recorded Date Recorded By Document 04/20/25 10:59 [facility] [id number] 04/20/25 11:05 [facility] 04/20/25 10:59 Wound Center Nurse 2 -Time 11:00 -Correct Patient Yes -Correct Side, Site, Position Yes -Correct Procedure Yes -Procedure Performed Yes -Type of Procedure Debridement -Clinical Debridement Subcutaneous -Tissue Removed Subcutaneous -Post Debridement (cm) - Length 1.5 -Post Debridement (cm) - Width 3.5 -Post Debridement (cm) - Depth 0.1 -Total Square (Post) (cm) 5.25 -Area of Debridement (cm) - Length 1.5 -Area of Debridement (cm) - Width 3.5 -Total Square (Area) (cm) 5.25 -Tunneling No -Undermining/Tunneling No -Circular Undermining No -Wound/Ulcer Outcome Not Healed -Ulcer Cleansing Rinsed/ Irrigated with Saline -Foul Odor after Cleansing No -Bioengineered Tissue No -Bleeding Controlled with Pressure -Treatment Response Procedure Tolerated Well -Debridement - Subq, 1st 20sq cm Yes Pain Scale: 0-10 Numeric Is Patient Pain Free? Yes - Nurse 3 - General Ulcer D/C NN Start: 04/20/25 10:24 Freq: Status: Active Protocol: Activity Type Activity Date Activity User E-sign Co-sign Detail Recorded Client Recorded Date Recorded By Document 04/20/25 11:14 [facility] [id number] 04/20/25 11:15 [facility] 04/20/25 11:14 Wound Care Center Nurse 3 #1 RIGHT FA -Ulcer Cleansing Rinsed/ Irrigated with Saline -Foul Odor after Cleansing No -Primary Dressing Applied Aquacel Extra, NonAdherent Contact Layer, Silicone Border Foam 4x4 -Aquacel Extra 1 -Silicone Border Foam 4x4 1 Treatment Response Procedure Tolerated Well Pain Scale: 0-10 Numeric Is Patient Pain Free? Yes - Visit Discharge Discharge Condition Stable Ambulatory Status Ambulatory,Cane Transportation Private Auto Accompanied by Assessment/Plan Assessment/Plan (1) Skin tear of right forearm without complication: CODE(S): S51.811A - Laceration without foreign body of right forearm, initial encounter QUALIFIERS: Encounter type: initial encounter Qualified Code(s): S51.811A - Laceration without foreign body of right forearm, initial encounter (2) Traumatic skin ulcer with fat layer exposed: CODE(S): L98.492 - Non-pressure chronic ulcer of skin of other sites with fat layer exposed PLAN: Wash the right forearm with antibacterial soap and water apply Aquacel extra to wound base moistened with Adaptic over top and a [place] SAP absorbent dressing. Follow-up in 1 week
--- NOTE | 2025-04-20 11:52 | PCM.WC.HP ---
History of Present Illness Date of Service: 04/20/25 Chief Complaint: Right forearm avulsion laceration History of Wound: 80-year-old white female that was looking at the window on the back of her couch and her Doberman dog came up and jumped up on the couch and scratched her arm by accident. He caused her to have avulsion laceration took off the willful top layer. Very painful for her skin was pushed back and basically gone she also has history of a stroke so therefore is on Plavix she is also has hypertension and thyroid issues. She lives at home with her and gets around with a cane. Her will be the one they will do the dressing changes She did see her primary care doctor he put her on 2 antibiotics and gave her an injection of Rocephin she is currently taking doxycycline at this point. 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) Back pain Thoracic aortic aneurysm without rupture Breast cancer CATHERINE (obstructive sleep apnea) Essential hypertension GERD (gastroesophageal reflux disease) Anxiety Fatty liver Home Medications ?Medication ?Instructions ?Recorded ?Last Taken ?Type pantoprazole 40 mg tablet,delayed 40 mg PO DAILY relfux 01/30/22 02/26/23 History release clopidogrel 75 mg tablet 75 mg PO DAILY anti platelet #30 03/01/23 Unknown Rx tabs citalopram 10 mg tablet 10 mg PO DAILY mental health 08/26/24 Unknown History gabapentin 100 mg capsule 100 mg PO DAILY nerve pain 08/26/24 Unknown History naproxen 250 mg tablet 250 mg PO BID pain 08/26/24 Unknown History acetaminophen 500 mg tablet 1,000 mg (2 x 500 mg) PO Q8H PRN 08/28/24 Unknown Rx PRN Headache/Fever (T>102.5) #0 tabs prednisone 10 mg tablet See Taper PO BID inflammation 2 08/28/24 08/26/24 Rx days #0 tabs albuterol sulfate 90 mcg/actuation 2 puff inhalation Q4H PRN PRN 04/20/25 Unknown History aerosol inhaler shortness of breath or wheezing cephalexin 500 mg capsule 500 mg PO BID 04/20/25 Unknown History doxycycline hyclate 100 mg tablet 100 mg PO BID 04/20/25 Unknown History metoprolol succinate 25 mg 25 mg PO QHS 04/20/25 Unknown History tablet,extended release 24 hr Allergy/AdvReac Type Severity Reaction Status Date / Time terazosin (From Hytrin) Allergy Severe Face Verified 04/14/25 15:58 swelling acetaminophen (From AdvReac Severe Nightmares Verified 04/14/25 15:58 Darvocet-N 100) propoxyphene (From AdvReac Severe Nightmares Verified 04/14/25 15:58 Darvocet-N 100) codeine AdvReac Unknown tight Verified 04/14/25 15:58 band around head and SOB gabapentin (From Neurontin) AdvReac Unknown Mental Verified 04/14/25 15:58 status change hydrocodone (From Vicodin) AdvReac Unknown Nightmares Verified 04/14/25 15:58 zolpidem (From Ambien) AdvReac Unknown Hallucinati Verified 04/14/25 15:58 ons Family History Father Myocardial infarction CVA (cerebral vascular accident) Surgical History History of abdominal hysterectomy History of laparoscopic cholecystectomy History of appendectomy History of partial mastectomy of right breast Social History Smoking Status: Never smoker alcohol intake: never substance use type: does not use ROS Constitutional Constitutional: Reports systems reviewed and no addt'l complaints, except as documented Eyes Eyes: Reports systems reviewed and no addt'l complaints, except as documented ENT HEENT: Reports systems reviewed and no addt'l complaints, except as documented Cardiovascular Cardiovascular: Reports systems reviewed and no addt'l complaints, except as documented Respiratory/Chest Respiratory/Chest: Reports systems reviewed and no addt'l complaints, except as documented Gastrointestinal Gastrointestinal: Reports systems reviewed and no addt'l complaints, except as documented Genitourinary Genitourinary: Reports systems reviewed and no addt'l complaints, except as documented Musculoskeletal Musculoskeletal: Reports systems reviewed and no addt'l complaints, except as documented Integumentary Integumentary: Reports wounds and other Details: Right forearm avulsion laceration bleeding is under control Neurologic Neurologic: Reports systems reviewed and no addt'l complaints, except as documented Psychiatric Psychiatric: Reports systems reviewed and no addt'l complaints, except as documented Endocrine Endocrinology: Reports systems reviewed and no addt'l complaints, except as documented Hematologic/Lymphatic Hematologic/Lymphatic: Reports systems reviewed and no addt'l complaints, except as documented Allergic/Immunologic Allergic/Immunologic: Reports systems reviewed and no addt'l complaints, except as documented Vital Signs Vital Signs Vital Signs: 04/20/25 10:24 Temperature 97.5 F L Temperature Source Temporal Pulse Rate 70 Respiratory Rate 18 Blood Pressure 142/94 H Blood Pressure Mean 110 Blood Pressure Source Monitor Blood Pressure Position Sitting Blood Pressure Location Left Arm Oxygen Delivery Method Room Air Physical Exam Const oriented x3 General Appearance: cooperative Exam Limitations: no limitations HEENT normocephalic Head and Scalp: normal to inspection Face and Sinus: normal facial exam Nose: external nose normal External Ear: external ears normal Eyes PERRL General Eye: normal appearance of both eyes Neck full ROM General: normal visual inspection Resp normal respiratory effort Effort and Inspection: able to speak in complete sentences Auscultation: clear to auscultation bilaterally Cardio regular rate and regular rhythm Palpation: normal PMI Rate: regular rate Rhythm: regular rhythm GI Palpation: soft Extremity normal to inspection General Extremity: normal exam except as noted and other findings Other Details: Laceration to the right forearm Skin no rashes or lesions noted Wounds: wounds noted Wound Narrative: Avulsion laceration to right forearm clean no sign of infection or redness. Very tender to touch Neuro oriented x3 Psych Appearance: grossly normal Speech: normal speech Thought Content: normal thought content Judgement: judgement good Debridement Note Debridement Note Post-Debridement Measurements and Additional Note: Post-Debridement Measurements/Treatment [facility] Nurse 1 - General Ulcer Assessment Start: 04/20/25 10:24 Freq: Status: Active Protocol: WC.LOWEXT Activity Type Activity Date Activity User E-sign Co-sign Detail Recorded Client Recorded Date Recorded By Document 04/20/25 10:24 EILEEN [id number] 04/20/25 10:29 DS 04/20/25 10:24 - Today's Visit Information Type of service Initial Visit Arrival Mode Ambulatory,Cane Accompanied by SUE - Patient Identification Verified (Name & Yes ) Patient Requires Transmission-Based No Precautions Safety Precautions Fall Prevention Vital Signs Temperature (97.8 F-99.1 F) 97.5 F L Temperature Source Temporal Pulse Rate (60-100) 70 Pulse Location Monitor Respiratory Rate (12-18) 18 Respiratory rate source Observation Oxygen Delivery Method Room Air Blood Pressure (90/60-120/80) 142/94 H Blood Pressure Mean 110 Source Monitor Position Sitting Blood Pressure Location Left Arm Pain Scale: 0-10 Numeric Is Patient Pain Free? No RIGHT ARM -Description Sharp,Throbbing -Intensity 4 -Duration (hours) Chronic -Pain Behavior No Change in Behavior -Pain Aggravating Factors ADL's -Alleviating Factors/Interventions Will continue to monitor Communication Assessment Preferred language Thai P D Driver Required No Able to Read Yes Able to Write Yes Communication Tools None Right Hearing Abillity Normal Left Hearing Abillity Normal Visual Assistive Devices Glasses Teaching Assessment Preferences Verbal Barriers to Learning None Readiness To Learn Good Willingness to Engage in Self Management High Activies Readiness to Engage in Self Management High Activities Anxiety Level Calm Cooperation Cooperative Perception Coherent Interest in Health Problem Asks Questions Education Importance Acknowledges Need Does Patient Smoke tobacco or other No substances Is Patient Diabetic No Functional Assessment Recent Decline in Ability to Perform Denies Any Declines Culture/Taoism/Facility Administrator Cultural/Taoism Needs that may affect No Treatment Plan Teaching: Wound Center *Welcome to the Wound Center -Person Taught Patient, Significant Other -Teaching Method Discussion -Response to teaching Verbalize Understanding WC - Nurse 1 - General Ulcer Measurement Start: 04/20/25 10:24 Freq: Status: Active Protocol: Activity Type Activity Date Activity User E-sign Co-sign Detail Recorded Client Recorded Date Recorded By Document 04/20/25 10:38 DS [id number] 04/20/25 10:52 DS 04/20/25 10:38 Wound Center Nurse 1 #1 RIGHT FA -Current Size (cm) - Length 2.3 -Current Size (cm) - Width 3.6 -Current Size (cm) - Depth 0.1 -Total Square Cm 8.28 -Date of Last Picture (Recall this 04/20/25 field) -Photo Taken Yes -Tunneling No -Undermining/Tunneling No -Circular Undermining No -Exudate Amt Large -Exudate Type Sanguineous -Wound Margin Distinct, Outline Attached -Granulation Amt Medium (34-66%) -Granulation Quality [place] -Necrosis Amt Small (1-33%) -Necrotic Tissue Type Eschar -Texture (Kelley-wound Skin Appearance) Assessed -Moisture (Kelley-wound Skin Appearance) Assessed -Color (Kelley-wound Skin Appearance) Assessed -Temperature (Kelley-wound Skin No Abnormality Appearance) (Pt Warm) -Tenderness on Palpation (Kelley-wound No Skin Appearance) -Ulcer Cleansing Soap and Water -Foul Odor after Cleansing No -Anesthetic Used 5% Lidocaine Gel - Nurse 2 - General Ulcer CM Notes Start: 04/20/25 10:24 Freq: Status: Active Protocol: Activity Type Activity Date Activity User E-sign Co-sign Detail Recorded Client Recorded Date Recorded By Document 04/20/25 10:59 [facility] [id number] 04/20/25 11:05 [facility] 04/20/25 10:59 Wound Center Nurse 2 -Time 11:00 -Correct Patient Yes -Correct Side, Site, Position Yes -Correct Procedure Yes -Procedure Performed Yes -Type of Procedure Debridement -Clinical Debridement Subcutaneous -Tissue Removed Subcutaneous -Post Debridement (cm) - Length 1.5 -Post Debridement (cm) - Width 3.5 -Post Debridement (cm) - Depth 0.1 -Total Square (Post) (cm) 5.25 -Area of Debridement (cm) - Length 1.5 -Area of Debridement (cm) - Width 3.5 -Total Square (Area) (cm) 5.25 -Tunneling No -Undermining/Tunneling No -Circular Undermining No -Wound/Ulcer Outcome Not Healed -Ulcer Cleansing Rinsed/ Irrigated with Saline -Foul Odor after Cleansing No -Bioengineered Tissue No -Bleeding Controlled with Pressure -Treatment Response Procedure Tolerated Well -Debridement - Subq, 1st 20sq cm Yes Pain Scale: 0-10 Numeric Is Patient Pain Free? Yes - Nurse 3 - General Ulcer D/C NN Start: 04/20/25 10:24 Freq: Status: Active Protocol: Activity Type Activity Date Activity User E-sign Co-sign Detail Recorded Client Recorded Date Recorded By Document 04/20/25 11:14 [facility] [id number] 04/20/25 11:15 [facility] 04/20/25 11:14 [facility] Center Nurse 3 #1 RIGHT FA -Ulcer Cleansing Rinsed/ Irrigated with Saline -Foul Odor after Cleansing No -Primary Dressing Applied Aquacel Extra, NonAdherent Contact Layer, Silicone Border Foam 4x4 -Aquacel Extra 1 -Silicone Border Foam 4x4 1 Treatment Response Procedure Tolerated Well Pain Scale: 0-10 Numeric Is Patient Pain Free? Yes - Visit Discharge Discharge Condition Stable Ambulatory Status Ambulatory,Cane Transportation Private Auto Accompanied by Assessment/Plan Assessment/Plan (1) Skin tear of right forearm without complication: CODE(S): S51.811A - Laceration without foreign body of right forearm, initial encounter QUALIFIERS: Encounter type: initial encounter Qualified Code(s): S51.811A - Laceration without foreign body of right forearm, initial encounter (2) Traumatic skin ulcer with fat layer exposed: CODE(S): L98.492 - Non-pressure chronic ulcer of skin of other sites with fat layer exposed PLAN: Wash the right forearm with antibacterial soap and water apply Aquacel extra to wound base moistened with Adaptic over top and a [place] SAP absorbent dressing. Follow-up in 1 week
--- NOTE | 2025-04-21 09:52 | WC ---
PHOTO-RFA 04/20/25
--- NOTE | 2025-04-21 09:52 | WC ---
PHOTO-RFA 04/20/25
== END 2025-04-21 23:59 | disposition home or self-care (01) ==
LOC: WC 10:09
PROVIDERS: PCP Family Medicine Geriatric Medicine; Referring Provider Family Medicine Geriatric Medicine; Visit Provider Nurse Practitioner
DX: L98.492 Non-pressure chronic ulcer of skin of other sites with fat layer exposed (principal); I10 Essential (primary) hypertension; S51.811S Laceration without foreign body of right forearm, sequela; W54.1XXS Struck by dog, sequela; G47.33 Obstructive sleep apnea (adult) (pediatric); Z79.02 Long term (current) use of 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/antiplatelets; Z79.899 Other long term (current) drug therapy
CPT/HCPCS: 11042; 99213; G0463

== ENCOUNTER 2025-05-04 11:30 | Outpatient (RCR) | payer MEDICARE, SELFPAY ==
[2025-04-27 11:38] VITALS: BP 130/87; PULSE 88; RESP 18; TEMP 36.1
--- NOTE | 2025-04-27 11:51 | PN.PCM_ITS ---
History of Present Illness Date of Service: 04/27/25 Chief Complaint: Right forearm avulsion laceration History of Wound: 80-year-old white female that was looking at the window on the back of her couch and her Doberman dog came up and jumped up on the couch and scratched her arm by accident. He caused her to have avulsion laceration took off the willful top layer. Very painful for her skin was pushed back and basically gone she also has history of a stroke so therefore is on Plavix she is also has hypertension and thyroid issues. She lives at home with her and gets around with a cane. Her will be the one they will do the dressing changes She did see her primary care doctor he put her on 2 antibiotics and gave her an injection of Rocephin she is currently taking doxycycline at this point. Progress of Wound: Wound is half the size and just superficial this week no sign of infection doing well she still on all those antibiotics anyways. We will continue using the Aquacel extra with the Adaptic over top 's been doing a good job of doing the wound care. Patient is on blood thinners and does bleed easily. Subjective Subjective Patient and family are improved Prest with how well it looks Objective Data Objective Data No sign of infection improving with the treatment we will continue with the Aquacel and Adaptic daily Vital Signs: Vital Signs Temp Pulse Resp BP 97 F L 88 18 130/87 H 04/27/25 11:38 04/27/25 11:38 04/27/25 11:38 04/27/25 11:38 Lab / Micro Data Attestation: I reviewed the patient's lab results. Physical Exam Const oriented x3 General Appearance: cooperative Exam Limitations: no limitations HEENT normocephalic Head and Scalp: normal to inspection Face and Sinus: normal facial exam Nose: external nose normal External Ear: external ears normal Eyes PERRL General Eye: normal appearance of both eyes Neck full ROM General: normal visual inspection Resp normal respiratory effort Effort and Inspection: able to speak in complete sentences Auscultation: clear to auscultation bilaterally Cardio regular rate and regular rhythm Palpation: normal PMI Rate: regular rate Rhythm: regular rhythm GI Palpation: soft Extremity normal to inspection General Extremity: normal exam except as noted and other findings Other Details: Laceration to the right forearm Skin no rashes or lesions noted Wounds: wounds noted Wound Narrative: Avulsion laceration to right forearm clean no sign of infection or redness. Very tender to touch Neuro oriented x3 Psych Appearance: grossly normal Speech: normal speech Thought Content: normal thought content Judgement: judgement good Debridement Note Debridement Note Wound debrided: Right forearm Type of Debridement: Excisional debridement Anesthesia Used: 5% Lidocaine Gel Depth: in the subcutaneous layer Percentage of wound debrided: 100 Instrument Used: 5mm curette Tissue Removed: Devitalized tissue and fibrin Severity: Fat Layer Exposed Amount of bleeding with debridement: Mild Bleeding Controlled with: Compression and gauze Patient tolerated procedure: Patient tolerated procedure well Post-Debridement Measurements and Additional Note: Post-Debridement Measurements/Treatment NADER - Nurse 1 - General Ulcer Assessment Start: 04/27/25 11:38 Freq: Status: Active Protocol: RYLAN Activity Type Activity Date Activity User E-sign Co-sign Detail Recorded Client Recorded Date Recorded By Document 04/27/25 11:38 TIO [id number] 04/27/25 11:40 TIO 04/27/25 11:38 WC - Today's Visit Information Type of service Follow-up Visit (Physician/SAFETY EQUIPMENT TESTING SPECIALIST ) Arrival Mode Ambulatory Transfer Assistance None Patient Identification Verified (Name & Yes ) Patient Requires Transmission-Based No Precautions Vital Signs Temperature (97.8 F-99.1 F) 97 F L Temperature Source Temporal Pulse Rate (60-100) 88 Pulse Location Monitor Respiratory Rate (12-18) 18 Respiratory rate source Observation Blood Pressure (90/60-120/80) 130/87 H Blood Pressure Mean (mm Hg) 101 Source Monitor Position Supine Blood Pressure Location Right Arm History Since Last Visit- (Skip if this is Patient's initial visit) Have you changed medications since your No last visit? Any new allergies or adverse reactions No Had a fall/change in ADL's that may No increase risk of falls Signs or symptoms of abuse and/or No neglect since last visit Have you been in the hospital since your No last visit? Has dressing in place as prescribed Yes Has compression in place as prescribed No Has offloadiing in place as prescribed No Experienced any changes in pain level or No management Pain Scale: 0-10 Numeric Is Patient Pain Free? Yes [facility] [place] Nurse 1 - General Ulcer Measurement Start: 04/27/25 11:38 Freq: Status: Active Protocol: Activity Type Activity Date Activity User E-sign Co-sign Detail Recorded Client Recorded Date Recorded By Document 04/27/25 11:38 RB [id number] 04/27/25 11:40 RB 04/27/25 11:38 Wound Center Nurse 1 #1 RIGHT FA -Combined with other wound No -Current Size (cm) - Length 1 -Current Size (cm) - Width 2.2 -Current Size (cm) - Depth 0.1 -Total Square Cm 2.2 -Photo Taken Yes -Tunneling No -Undermining/Tunneling No -Circular Undermining No -Exudate Amt Small -Exudate Type Serosanguineous -Wound Margin Distinct, Outline Attached -Granulation Amt Medium (34-66%) -Granulation Quality [place] -Slough/Fibrin Yes -Necrosis Amt Small (1-33%) -Necrotic Tissue Type Adherent Slough -Structure Exposed N/A -Texture (Kelley-wound Skin Appearance) Assessed, Friable -Moisture (Kelley-wound Skin Appearance) Assessed -Color (Kelley-wound Skin Appearance) Assessed -Temperature (Kelley-wound Skin No Abnormality Appearance) (Pt Warm) -Tenderness on Palpation (Kelley-wound No Skin Appearance) -Ulcer Cleansing Wound Cleanser -Foul Odor after Cleansing No -Anesthetic Used 5% Lidocaine Gel WC - Nurse 2 - General Ulcer CM Notes Start: 04/27/25 11:38 Freq: Status: Active Protocol: Activity Type Activity Date Activity User E-sign Co-sign Detail Recorded Client Recorded Date Recorded By Document 04/27/25 11:46 DS [id number] 04/27/25 11:48 DS 04/27/25 11:46 Wound Center Nurse 2 -Time 11:46 -Correct Patient Yes -Correct Side, Site, Position Yes -Correct Procedure Yes -Procedure Performed Yes -Type of Procedure Debridement -Clinical Debridement Subcutaneous -Tissue Removed Subcutaneous -Post Debridement (cm) - Length 0.5 -Post Debridement (cm) - Width 2.0 -Post Debridement (cm) - Depth 0.1 -Total Square (Post) (cm) 1.00 -Area of Debridement (cm) - Length 0.5 -Area of Debridement (cm) - Width 2.0 -Total Square (Area) (cm) 1.00 -Tunneling No -Undermining/Tunneling No -Circular Undermining No -Wound/Ulcer Outcome Not Healed -Ulcer Cleansing Rinsed/ Irrigated with Saline -Foul Odor after Cleansing No -Bioengineered Tissue No -Bleeding Controlled with Pressure -Treatment Response Procedure Tolerated Well -Offloading No -Debridement - Subq, 1st 20sq cm Yes Pain Scale: 0-10 Numeric Is Patient Pain Free? Yes Assessment/Plan Assessment/Plan (1) Skin tear of right forearm without complication: CODE(S): S51.811A - Laceration without foreign body of right forearm, initial encounter QUALIFIERS: Encounter type: initial encounter Qualified Code(s): S51.811A - Laceration without foreign body of right forearm, initial encounter (2) Traumatic skin ulcer with fat layer exposed: CODE(S): L98.492 - Non-pressure chronic ulcer of skin of other sites with fat layer exposed PLAN: Wash the right forearm with antibacterial soap and water apply Aquacel extra to wound base moistened with Adaptic over top and a [place] SAP absorbent dressing. Follow-up in 1 week
--- NOTE | 2025-04-28 09:52 | WC ---
PHOTO-RIGHT FOREARM 04/27/25
--- NOTE | 2025-04-28 09:52 | WC ---
PHOTO-RIGHT FOREARM 04/27/25
[2025-05-04 11:23] VITALS: BP 136/89; PULSE 79; RESP 18; TEMP 36.6
--- NOTE | 2025-05-04 11:46 | PN.PCM_ITS ---
History of Present Illness Date of Service: 05/04/25 Chief Complaint: Right forearm avulsion laceration History of Wound: 80-year-old white female that was looking at the window on the back of her couch and her Doberman dog came up and jumped up on the couch and scratched her arm by accident. He caused her to have avulsion laceration took off the willful top layer. Very painful for her skin was pushed back and basically gone she also has history of a stroke so therefore is on Plavix she is also has hypertension and thyroid issues. She lives at home with her and gets around with a cane. Her will be the one they will do the dressing changes She did see her primary care doctor he put her on 2 antibiotics and gave her an injection of Rocephin she is currently taking doxycycline at this point. Progress of Wound: Wound on right forearm is healed patient be discharged from the wound center Subjective Subjective Patient was extremely happy but he complains of burning in the arm so we put a small dry dressing on it to protect the new skin Objective Data Objective Data Patient will be discharged from the wound center can wear her dressing as needed for the first week to protect the new skin and then she can wear dressing as needed or stop and follow-up as needed. Vital Signs: Vital Signs Temp Pulse Resp BP O2 Del Method 98 F 79 18 136/89 H Room Air 05/04/25 11:23 05/04/25 11:23 05/04/25 11:23 05/04/25 11:23 05/04/25 11:23 Oxygen Delivery Method Room Air Physical Exam Const oriented x3 General Appearance: cooperative Exam Limitations: no limitations HEENT normocephalic Head and Scalp: normal to inspection Face and Sinus: normal facial exam Nose: external nose normal External Ear: external ears normal Eyes PERRL General Eye: normal appearance of both eyes Neck full ROM General: normal visual inspection Resp normal respiratory effort Effort and Inspection: able to speak in complete sentences Auscultation: clear to auscultation bilaterally Cardio regular rate and regular rhythm Palpation: normal PMI Rate: regular rate Rhythm: regular rhythm GI Palpation: soft Extremity normal to inspection General Extremity: normal exam except as noted and other findings Other Details: Laceration to the right forearm Skin no rashes or lesions noted Wounds: wounds noted Wound Narrative: Avulsion laceration to right forearm clean no sign of infection or redness. Very tender to touch Neuro oriented x3 Psych Appearance: grossly normal Speech: normal speech Thought Content: normal thought content Judgement: judgement good Debridement Note Debridement Note No debridement was completed: No debridement was completed today Post-Debridement Measurements and Additional Note: Post-Debridement Measurements/Treatment - Nurse 1 - General Ulcer Assessment Start: 04/27/25 11:38 Freq: Status: Active Protocol: RYLAN Activity Type Activity Date Activity User E-sign Co-sign Detail Recorded Client Recorded Date Recorded By Document 04/27/25 11:38 RB [id number] 04/27/25 11:40 RB Document 05/04/25 11:23 MT [id number] 05/04/25 11:26 MT 04/27/25 05/04/25 11:38 11:23 WC - Today's Visit Information Type of service Follow-up Visit Follow-up Visit (Physician/FUNCTIONAL TESTER (Physician/FUNCTIONAL TESTER ) ) Arrival Mode Ambulatory Ambulatory Transfer Assistance None Accompanied by Patient Identification Verified (Name & Yes Yes ) Patient Requires Transmission-Based No Precautions Safety Precautions Fall Prevention Vital Signs Temperature (97.8 F-99.1 F) 97 F L 98 F Temperature Source Temporal Temporal Pulse Rate (60-100) 88 79 Pulse Location Monitor Monitor Respiratory Rate (12-18) 18 18 Respiratory rate source Observation Observation Oxygen Delivery Method Room Air Blood Pressure (90/60-120/80) 130/87 H 136/89 H Blood Pressure Mean (mm Hg) 101 104 Source Monitor Monitor Position Supine Sitting Blood Pressure Location Right Arm Left Arm History Since Last Visit- (Skip if this is Patient's initial visit) Have you changed medications since your No last visit? Any new allergies or adverse reactions No Had a fall/change in ADL's that may No increase risk of falls Signs or symptoms of abuse and/or No neglect since last visit Have you been in the hospital since your No last visit? Has dressing in place as prescribed Yes Yes Has compression in place as prescribed No Yes Has offloadiing in place as prescribed No Yes Experienced any changes in pain level or No Yes management Left Footwear Regular Shoe Right Footwear Regular Shoe Pain Scale: 0-10 Numeric Is Patient Pain Free? Yes Yes NADER Santillan Nurse 1 - General Ulcer Measurement Start: 04/27/25 11:38 Freq: Status: Active Protocol: Activity Type Activity Date Activity User E-sign Co-sign Detail Recorded Client Recorded Date Recorded By Document 04/27/25 11:38 RB [id number] 04/27/25 11:40 RB Document 05/04/25 11:23 PR [id number] 05/04/25 11:26 PR 04/27/25 05/04/25 11:38 11:23 Wound Center Nurse 1 #1 RIGHT FA -Combined with other wound No -Current Size (cm) - Length 1 0.1 -Current Size (cm) - Width 2.2 0.1 -Current Size (cm) - Depth 0.1 0.1 -Total Square Cm 2.2 0.01 -Date of Last Picture (Recall this 05/04/25 field) -Photo Taken Yes Yes -Epithelialization Large 67-100% -Tunneling No No -Undermining/Tunneling No No -Circular Undermining No No -Exudate Amt Small Small -Exudate Type Serosanguineous Serosanguineous -Wound Margin Distinct, Flat & Intact Outline Attached -Granulation Amt Medium (34-66%) Large (67-100%) -Granulation Quality [place] Pale,[place] -Slough/Fibrin Yes No -Necrosis Amt Small (1-33%) -Necrotic Tissue Type Adherent Slough -Structure Exposed N/A -Texture (Kelley-wound Skin Appearance) Assessed, Assessed Friable -Moisture (Kelley-wound Skin Appearance) Assessed Assessed -Color (Kelley-wound Skin Appearance) Assessed Assessed -Temperature (Kelley-wound Skin No Abnormality No Abnormality Appearance) (Pt Warm) (Pt Warm) -Tenderness on Palpation (Kelley-wound No No Skin Appearance) -Ulcer Cleansing Wound Cleanser Soap and Water -Foul Odor after Cleansing No No -Anesthetic Used 5% Lidocaine 5% Lidocaine Gel Gel Lower Limb Edema Present NA WC - Nurse 2 - General Ulcer CM Notes Start: 04/27/25 11:38 Freq: Status: Active Protocol: Activity Type Activity Date Activity User E-sign Co-sign Detail Recorded Client Recorded Date Recorded By Document 04/27/25 11:46 DS [id number] 04/27/25 11:48 DS Document 05/04/25 11:31 [facility] [id number] 05/04/25 11:35 BM 04/27/25 05/04/25 11:46 11:31 Wound Center Nurse 2 #1 RIGHT FA -Time 11:46 11:34 -Correct Patient Yes -Correct Side, Site, Position Yes -Correct Procedure Yes -Procedure Performed Yes No -Type of Procedure Debridement -Clinical Debridement Subcutaneous -Tissue Removed Subcutaneous -Post Debridement (cm) - Length 0.5 0 -Post Debridement (cm) - Width 2.0 0 -Post Debridement (cm) - Depth 0.1 0 -Total Square (Post) (cm) 1.00 0 -Area of Debridement (cm) - Length 0.5 0 -Area of Debridement (cm) - Width 2.0 0 -Total Square (Area) (cm) 1.00 0 -Tunneling No -Undermining/Tunneling No -Circular Undermining No -Wound/Ulcer Outcome Not Healed Healed- Epithelialized -Ulcer Cleansing Rinsed/ Irrigated with Saline -Foul Odor after Cleansing No -Bioengineered Tissue No -Bleeding Controlled with Pressure NA -Treatment Response Procedure Tolerated Well -Offloading No -Debridement - Subq, 1st 20sq cm Yes Pain Scale: 0-10 Numeric Is Patient Pain Free? Yes Yes - Nurse 3 - General Ulcer D/C NN Start: 04/27/25 11:38 Freq: Status: Active Protocol: Activity Type Activity Date Activity User E-sign Co-sign Detail Recorded Client Recorded Date Recorded By Document 04/27/25 11:57 DL [id number] 04/27/25 11:59 DL Document 05/04/25 11:36 [facility] [id number] 05/04/25 11:36 [facility] 04/27/25 05/04/25 11:57 11:36 Wound Care Center Nurse 3 #1 RIGHT FA -Ulcer Cleansing Rinsed/ Irrigated with Saline -Foul Odor after Cleansing No -Primary Dressing Applied Aquacel Extra, NonAdherent Contact Layer -Primary Dressing Covered/Secured with Dry Gauze, Dry Gauze & Secured with Roll Gauze, Tape Secured with Tape -Aquacel Extra 1 -Wound Comment(s) healed. pad/ protect Treatment Response Procedure Procedure Tolerated Well Tolerated Well Pain Scale: 0-10 Numeric Is Patient Pain Free? Yes Yes - Visit Discharge Discharge Condition Stable Stable Ambulatory Status Ambulatory,Cane Ambulatory,Cane Transportation Private Auto Private Auto Accompanied by Notes: dressing applied per Radha Buchanan today. Assessment/Plan Assessment/Plan (1) Skin tear of right forearm without complication: CODE(S): S51.811A - Laceration without foreign body of right forearm, initial encounter QUALIFIERS: Encounter type: initial encounter Qualified Code(s): S51.811A - Laceration without foreign body of right forearm, initial encounter (2) Traumatic skin ulcer with fat layer exposed: CODE(S): L98.492 - Non-pressure chronic ulcer of skin of other sites with fat layer exposed PLAN: All is healed patient will be discharged from the wound center and can follow-up as needed.
--- NOTE | 2025-05-04 11:46 | PN.PCM_ITS ---
History of Present Illness Date of Service: 05/04/25 Chief Complaint: Right forearm avulsion laceration History of Wound: 80-year-old white female that was looking at the window on the back of her couch and her Doberman dog came up and jumped up on the couch and scratched her arm by accident. He caused her to have avulsion laceration took off the willful top layer. Very painful for her skin was pushed back and basically gone she also has history of a stroke so therefore is on Plavix she is also has hypertension and thyroid issues. She lives at home with her and gets around with a cane. Her will be the one they will do the dressing changes She did see her primary care doctor he put her on 2 antibiotics and gave her an injection of Rocephin she is currently taking doxycycline at this point. Progress of Wound: Wound on right forearm is healed patient be discharged from the wound center Subjective Subjective Patient was extremely happy but he complains of burning in the arm so we put a small dry dressing on it to protect the new skin Objective Data Objective Data Patient will be discharged from the wound center can wear her dressing as needed for the first week to protect the new skin and then she can wear dressing as needed or stop and follow-up as needed. Vital Signs: Vital Signs Temp Pulse Resp BP O2 Del Method 98 F 79 18 136/89 H Room Air 05/04/25 11:23 05/04/25 11:23 05/04/25 11:23 05/04/25 11:23 05/04/25 11:23 Oxygen Delivery Method Room Air Physical Exam Const oriented x3 General Appearance: cooperative Exam Limitations: no limitations HEENT normocephalic Head and Scalp: normal to inspection Face and Sinus: normal facial exam Nose: external nose normal External Ear: external ears normal Eyes PERRL General Eye: normal appearance of both eyes Neck full ROM General: normal visual inspection Resp normal respiratory effort Effort and Inspection: able to speak in complete sentences Auscultation: clear to auscultation bilaterally Cardio regular rate and regular rhythm Palpation: normal PMI Rate: regular rate Rhythm: regular rhythm GI Palpation: soft Extremity normal to inspection General Extremity: normal exam except as noted and other findings Other Details: Laceration to the right forearm Skin no rashes or lesions noted Wounds: wounds noted Wound Narrative: Avulsion laceration to right forearm clean no sign of infection or redness. Very tender to touch Neuro oriented x3 Psych Appearance: grossly normal Speech: normal speech Thought Content: normal thought content Judgement: judgement good Debridement Note Debridement Note No debridement was completed: No debridement was completed today Post-Debridement Measurements and Additional Note: Post-Debridement Measurements/Treatment - Nurse 1 - General Ulcer Assessment Start: 04/27/25 11:38 Freq: Status: Active Protocol: RYLAN Activity Type Activity Date Activity User E-sign Co-sign Detail Recorded Client Recorded Date Recorded By Document 04/27/25 11:38 RB [id number] 04/27/25 11:40 RB Document 05/04/25 11:23 MT [id number] 05/04/25 11:26 MT 04/27/25 05/04/25 11:38 11:23 WC - Today's Visit Information Type of service Follow-up Visit Follow-up Visit (Physician/PLANT SCIENCES PROFESSOR (Physician/PLANT SCIENCES PROFESSOR ) ) Arrival Mode Ambulatory Ambulatory Transfer Assistance None Accompanied by Patient Identification Verified (Name & Yes Yes ) Patient Requires Transmission-Based No Precautions Safety Precautions Fall Prevention Vital Signs Temperature (97.8 F-99.1 F) 97 F L 98 F Temperature Source Temporal Temporal Pulse Rate (60-100) 88 79 Pulse Location Monitor Monitor Respiratory Rate (12-18) 18 18 Respiratory rate source Observation Observation Oxygen Delivery Method Room Air Blood Pressure (90/60-120/80) 130/87 H 136/89 H Blood Pressure Mean (mm Hg) 101 104 Source Monitor Monitor Position Supine Sitting Blood Pressure Location Right Arm Left Arm History Since Last Visit- (Skip if this is Patient's initial visit) Have you changed medications since your No last visit? Any new allergies or adverse reactions No Had a fall/change in ADL's that may No increase risk of falls Signs or symptoms of abuse and/or No neglect since last visit Have you been in the hospital since your No last visit? Has dressing in place as prescribed Yes Yes Has compression in place as prescribed No Yes Has offloadiing in place as prescribed No Yes Experienced any changes in pain level or No Yes management Left Footwear Regular Shoe Right Footwear Regular Shoe Pain Scale: 0-10 Numeric Is Patient Pain Free? Yes Yes NADER Santillan Nurse 1 - General Ulcer Measurement Start: 04/27/25 11:38 Freq: Status: Active Protocol: Activity Type Activity Date Activity User E-sign Co-sign Detail Recorded Client Recorded Date Recorded By Document 04/27/25 11:38 RB [id number] 04/27/25 11:40 RB Document 05/04/25 11:23 VT [id number] 05/04/25 11:26 VT 04/27/25 05/04/25 11:38 11:23 Wound Center Nurse 1 #1 RIGHT FA -Combined with other wound No -Current Size (cm) - Length 1 0.1 -Current Size (cm) - Width 2.2 0.1 -Current Size (cm) - Depth 0.1 0.1 -Total Square Cm 2.2 0.01 -Date of Last Picture (Recall this 05/04/25 field) -Photo Taken Yes Yes -Epithelialization Large 67-100% -Tunneling No No -Undermining/Tunneling No No -Circular Undermining No No -Exudate Amt Small Small -Exudate Type Serosanguineous Serosanguineous -Wound Margin Distinct, Flat & Intact Outline Attached -Granulation Amt Medium (34-66%) Large (67-100%) -Granulation Quality Saline Pale,Saline -Slough/Fibrin Yes No -Necrosis Amt Small (1-33%) -Necrotic Tissue Type Adherent Slough -Structure Exposed N/A -Texture (Kelley-wound Skin Appearance) Assessed, Assessed Friable -Moisture (Kelley-wound Skin Appearance) Assessed Assessed -Color (Kelley-wound Skin Appearance) Assessed Assessed -Temperature (Kelley-wound Skin No Abnormality No Abnormality Appearance) (Pt Warm) (Pt Warm) -Tenderness on Palpation (Kelley-wound No No Skin Appearance) -Ulcer Cleansing Wound Cleanser Soap and Water -Foul Odor after Cleansing No No -Anesthetic Used 5% Lidocaine 5% Lidocaine Gel Gel Lower Limb Edema Present NA WC - Nurse 2 - General Ulcer CM Notes Start: 04/27/25 11:38 Freq: Status: Active Protocol: Activity Type Activity Date Activity User E-sign Co-sign Detail Recorded Client Recorded Date Recorded By Document 04/27/25 11:46 DS [id number] 04/27/25 11:48 DS Document 05/04/25 11:31 [facility] [id number] 05/04/25 11:35 BM 04/27/25 05/04/25 11:46 11:31 Wound Center Nurse 2 #1 RIGHT FA -Time 11:46 11:34 -Correct Patient Yes -Correct Side, Site, Position Yes -Correct Procedure Yes -Procedure Performed Yes No -Type of Procedure Debridement -Clinical Debridement Subcutaneous -Tissue Removed Subcutaneous -Post Debridement (cm) - Length 0.5 0 -Post Debridement (cm) - Width 2.0 0 -Post Debridement (cm) - Depth 0.1 0 -Total Square (Post) (cm) 1.00 0 -Area of Debridement (cm) - Length 0.5 0 -Area of Debridement (cm) - Width 2.0 0 -Total Square (Area) (cm) 1.00 0 -Tunneling No -Undermining/Tunneling No -Circular Undermining No -Wound/Ulcer Outcome Not Healed Healed- Epithelialized -Ulcer Cleansing Rinsed/ Irrigated with Saline -Foul Odor after Cleansing No -Bioengineered Tissue No -Bleeding Controlled with Pressure NA -Treatment Response Procedure Tolerated Well -Offloading No -Debridement - Subq, 1st 20sq cm Yes Pain Scale: 0-10 Numeric Is Patient Pain Free? Yes Yes - Nurse 3 - General Ulcer D/C NN Start: 04/27/25 11:38 Freq: Status: Active Protocol: Activity Type Activity Date Activity User E-sign Co-sign Detail Recorded Client Recorded Date Recorded By Document 04/27/25 11:57 DL [id number] 04/27/25 11:59 DL Document 05/04/25 11:36 [facility] [id number] 05/04/25 11:36 [facility] 04/27/25 05/04/25 11:57 11:36 Wound Care Center Nurse 3 #1 RIGHT FA -Ulcer Cleansing Rinsed/ Irrigated with Saline -Foul Odor after Cleansing No -Primary Dressing Applied Aquacel Extra, NonAdherent Contact Layer -Primary Dressing Covered/Secured with Dry Gauze, Dry Gauze & Secured with Roll Gauze, Tape Secured with Tape -Aquacel Extra 1 -Wound Comment(s) healed. pad/ protect Treatment Response Procedure Procedure Tolerated Well Tolerated Well Pain Scale: 0-10 Numeric Is Patient Pain Free? Yes Yes - Visit Discharge Discharge Condition Stable Stable Ambulatory Status Ambulatory,Cane Ambulatory,Cane Transportation Private Auto Private Auto Accompanied by Notes: dressing applied per Radha Buchanan today. Assessment/Plan Assessment/Plan (1) Skin tear of right forearm without complication: CODE(S): S51.811A - Laceration without foreign body of right forearm, initial encounter QUALIFIERS: Encounter type: initial encounter Qualified Code(s): S51.811A - Laceration without foreign body of right forearm, initial encounter (2) Traumatic skin ulcer with fat layer exposed: CODE(S): L98.492 - Non-pressure chronic ulcer of skin of other sites with fat layer exposed PLAN: All is healed patient will be discharged from the wound center and can follow-up as needed.
--- NOTE | 2025-05-05 09:52 | WC ---
PHOTO-RIGHT FA 05/04/25
--- NOTE | 2025-05-05 09:52 | WC ---
PHOTO-RIGHT FA 05/04/25
== END 2025-05-22 23:59 | disposition home or self-care (01) ==
LOC: WC 11:30
PROVIDERS: PCP Family Medicine Geriatric Medicine; Referring Provider Family Medicine Geriatric Medicine; Visit Provider Nurse Practitioner
DX: L98.492 Non-pressure chronic ulcer of skin of other sites with fat layer exposed (principal); S51.811S Laceration without foreign body of right forearm, sequela; W54.1XXS Struck by dog, sequela; I10 Essential (primary) hypertension; Z79.02 Long term (current) use of 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/antiplatelets; Z79.899 Other long term (current) drug therapy; Z86.73 Personal history of transient ischemic attack (TIA), and cerebral infarction without residual deficits
CPT/HCPCS: 11042; 99212; G0463

== ENCOUNTER → 2025-05-10 | Outpatient (CLI) | payer MEDICARE, SELFPAY ==
[2025-05-10 13:47] LABS: Hematocrit 39.6 % (37-47); Hemoglobin 13.2 g/dL (12.0-15.0); Immature Granulocytes Count 0.030 X10^3/uL (0.0-0.0); Mean Corp Hgb Conc 33.3 g/dL (32-36); Mean Corpuscular Volume 96.6 fL (81-99); Mean Platelet Vol. 10.2 fl (6.2-12.0); NRBC Flagged by Analyzer 0 % (0-5); Platelet Count 223 K/mm3 (150-450); RBC Distribution Width CV 12.8 % (11.6-14.6); RBC Distribution Width SD 45.2 fl (35.1-43.9); Red Blood Count 4.10 M/mm3 (4.2-5.4); White Blood Count 6.7 K/mm3 (4.4-11.0)
[2025-05-10 15:28] LABS: AST(SGOT) 23 U/L (<=31); Alanine Aminotransfer ALT/SGPT 16 U/L (<=34); Albumin, Serum 4.3 g/dL (3.4-4.8); Alkaline Phosphatase 110 U/L (35-104); Anion Gap 11 (5-15); BUN 21 mg/dL (4-19); BUN/Creat Ratio 24.1 RATIO (10-20); Calcium,Total 9.5 mg/dL (7.6-11.0); Carbon Dioxide 27.5 mmol/L (21.0-32.0); Chloride 99 mmol/L (98-108); Globulin 2.9 g/dL (2.2-4.2); Glucose 91 mg/dL (70-99); Potassium 4.0 mmol/L (3.3-5.1); Vitamin D,25 Hydroxy 25.0 ng/mL (30-100)
[2025-05-10 21:29] LABS: Xtra Tube Kwok EXTRA TUBE
== END | disposition home or self-care (01) ==
LOC: POLAB3 13:29
PROVIDERS: PCP Family Medicine Geriatric Medicine; Visit Provider Family Medicine Geriatric Medicine
DX: I10 Essential (primary) hypertension (principal); R53.83 Other fatigue; E55.9 Vitamin D deficiency, unspecified
CPT/HCPCS: 36415; 80053; 82306; 84443; 85025

== ENCOUNTER → 2025-06-29 | Outpatient (CLI) | payer MEDICARE, SELFPAY ==
[2025-06-29 18:01] LABS: CRP < 3.00 mg/L (0.0-3.0)
[2025-07-01 14:08] LABS: ANTINUCLEAR ANTIBODIES DIRECT Negative (Negative)
== END | disposition home or self-care (01) ==
LOC: LAB 14:46
PROVIDERS: PCP Family Medicine Geriatric Medicine; Referring Provider Internal Medicine Pulmonary Disease; Visit Provider Internal Medicine Pulmonary Disease
DX: I27.20 Pulmonary hypertension, unspecified (principal)
CPT/HCPCS: 36415; 85652; 86038; 86140; 86431

== ENCOUNTER → 2025-09-01 | Outpatient (CLI) | payer MEDICARE, SELFPAY ==
--- NOTE | 2025-09-01 13:39 | BI_ITS ---
EXAM: DIAG MAMM W/CAD, BILAT N/A CLINICAL HISTORY: F, Age 80 y/o , HX OF BREAST CANCER. Prior right lumpectomy and radiation palpable lump inferior to the right surgical site. Sister with breast cancer. TECHNIQUE: Procedure Code: [id number] Modality: MG Procedure: DIAG MAMM W/CAD, BILAT. COMPARISON: Prior exam(s) dated outside examination dated November 23, 2018.. FINDINGS: TISSUE DENSITY: There are scattered areas of fibroglandular density. Bilateral Breast Mammographic Findings: No significant masses, calcifications or other abnormalities are identified. Once again, the patient is status post lumpectomy with postoperative scarring and deformity in the deep axillary region of the right breast. This is unchanged. With the patient's history of a palpable lump at that site, targeted sonographic correlation recommended. BI/DIAG MAMM W/CAD, BILAT IMPRESSION: Stable examination. Sonographic correlation recommended at the palpable site i n the right breast. OVERALL FINAL ASSESSMENT BI-RADS 0: INCOMPLETE - NEED ADDITIONAL IMAGING EVALUATION. RECOMMENDATION: Ultrasound Recommended Additional Recommendation none A letter with findings and recommendations will be mailed to the patient. Reading Location: [place] [id number]
--- NOTE | 2025-09-01 13:39 | US_ITS ---
PROCEDURE: BREAST LIMITED UNILATERAL 09/01/2025 REASON FOR EXAM: F, Age 80 y/o , MASS COMPARISON: Prior mammogram done earlier in the day.. TECHNIQUE: Procedure Code: USBRSTLIMIT Modality: US Procedure: BREAST LIMITED UNILATERAL. The inferior lateral aspect of the right breast was examined. FINDINGS: The palpable lump is located at the 8 o'clock position of the breast at 6 cm from the nipple. This is adjacent to the lumpectomy scar. There is a 0.8 cm 0.5 cm by 1.1 cm hypoechoic irregular density with posterior acoustical shadowing. Calcifications are seen.. This most likely is post surgical scarring although can not rule out a neoplastic process. Biopsy is recommended. US/Breast Limited Unilateral IMPRESSION: The palpable lump corresponds to a 0.8 cm 1.1 cm 0.5 cm hypoechoic irregular no dule with posterior acoustical shadowing. Biopsy recommended. BI-RADS 4: SUSPICIOUS RECOMMENDATION: Biopsy Recommended Reading Location: [place] [address]
== END | disposition home or self-care (01) ==
LOC: OPBI 13:34
PROVIDERS: PCP Family Medicine Geriatric Medicine; Referring Provider Family Medicine Geriatric Medicine; Visit Provider Family Medicine Geriatric Medicine
DX: N83.10 Corpus luteum cyst of ovary, unspecified side (principal); Z85.3 Personal history of malignant neoplasm of breast
CPT/HCPCS: 76642; 77062; 77066; G0279

== ENCOUNTER → 2025-09-20 | Outpatient (CLI) | payer MEDICARE, SELFPAY ==
--- NOTE | 2025-09-20 10:00 | BRBX_PTH ---
PATIENT: REYES DUONG LOC: [facility] U#:[id number] AGE/SX: 80/F ROOM: RE09/20/[address]: Dr. Carlos Gomez MD : 1945 BED: DIS: 09/20/2025 SPEC #: [id number] RECD: 09/20/25 11:35 STATUS: [facility] RE #: [id number] RAHEEL: 09/20/25 10:[address]: Carlos Gomez DEPT: SURGICAL PATHOLOGY RECD BY: Bianca Leroy ENTERED: 09/21/25 06:35 SP TYPE: BREAST BX KHADIJAH DR: Dr. North Cuellar MD Tissues: Right breast, NOS Procedures: Surgery Specimen Level IV HEADER OPERATION: Right breast biopsy PRE-OP DIAGNOSIS: Right breast mass TISSUE SUBMITTED: A. Right breast tissue GROSS DESCRIPTION A. Received in fixative is one container labeled with the patient's name and designated right breast tissue. The specimen consists of multiple yellow adipose cores measuring 1 x 0.6 x 0.1 cm. The specimen is totally submitted in one cassette. Ischemic time >1 minute Fixation time: 9.5 hours 09/20/2025 CPT:
== END | disposition home or self-care (01) ==
LOC: LABSPEC 14:58
PROVIDERS: PCP Family Medicine Geriatric Medicine; Referring Provider Surgery; Visit Provider Surgery
DX: N63.10 Unspecified lump in the right breast, unspecified quadrant (principal)
CPT/HCPCS: 88305